=== PATIENT | female | born 1960 | race Caucasian/White ===

== ENCOUNTER 2020-06-25 09:21 | Emergency (ER) | payer MEDICARE, OTHER, SELFPAY ==
[2020-06-25 09:40] VITALS: BP 140/69; PULSE 68; RESP 16; TEMP 36.6; O2SAT 98; BMI 35.4
--- NOTE | 2020-06-25 09:57 | CT_ITS ---
EXAMINATION: CT ABDOMEN AND PELVIS WITHOUT CONTRAST CLINICAL INFORMATION: Lower back pain radiating to the leg. COMPARISON: 10/15/2018 TECHNIQUE: Multidetector volumetric imaging was performed from the superior aspect of the liver through the pubic symphysis. Sagittal and coronal reformatted images were obtained on the technologist's workstation. This CT examination was performed using dose optimization techniques as appropriate, variously including the following: *Automated exposure control *Adjustment of mA and/or kV according to patient size (this includes techniques or standardized protocols for targeted exams where dose is matched to indication/reason for exam; i.e. extremities or head) *Use of iterative reconstruction technique DLP: 744 mGy-cm FINDINGS: LUNG BASES: The visualized lung bases are unremarkable. LIVER, GALLBLADDER, AND BILIARY TREE: The liver is normal in size, shape, and attenuation. No focal hepatic lesion or biliary ductal dilatation is present. The gallbladder is unremarkable with no evidence of radiopaque gallstones, gallbladder wall thickening, or obvious pericholecystic inflammatory changes. PANCREAS: Unremarkable. SPLEEN: Unremarkable. ADRENAL GLANDS: Unremarkable. KIDNEYS AND URETERS: The kidneys are normal in size, shape, and attenuation. No hydronephrosis, hydroureter, or calculi seen. No perinephric stranding. 1.9 cm cyst at the lower pole of the left kidney. BLADDER: Unremarkable. GASTROINTESTINAL TRACT: The stomach is unremarkable. Normal caliber small bowel. There is no obstruction. No colonic wall thickening or inflammatory change. Normal appendix. Mild colonic stool burden. No free air. No free fluid. ABDOMINAL WALL: No significant hernia is appreciated. LYMPH NODES: Normal. VASCULAR: Normal caliber aorta with mild atherosclerotic calcification. PELVIC VISCERA: The uterus and adnexa are unremarkable. OSSEOUS STRUCTURES: There is no acute or suspicious osseous abnormality. Mild degenerative changes are noted in the spine with small endplate osteophytes present. The hips are well aligned. IMPRESSION: No acute finding of the abdomen or pelvis. No inflammatory changes. No hydronephrosis or nephrolithiasis.
[2020-06-25] MEDS: Lidocaine 4 % Patch ADH..PATCH 1 PATCH TRANSDERMA (10:26)
[2020-06-25] MEDS: Cyclobenzaprine HCl 10 MG TABLET PO (10:26)
[2020-06-25] MEDS: traMADoL HCL 50 MG TABLET PO (10:27)
[2020-06-25 10:54] LABS: Leukocyte Esterase Urine 1+ (NEG); PH 5.5 (5.0-8.0); Specific Gravity - Urine 1.015 (1.005-1.025); Urine Blood TRACE (NEG); Urine Ketones NEG (NEG)
[2020-06-25 11:10] LABS: Appearance Urine CLOUDY; Color Urine ORANGE
[2020-06-25 11:11] LABS: Bacteria Urine 4+ /LPF; RBC Urine 0-2 /HPF (0); Squamous Epithelial Cell Urine TRACE /LPF
--- NOTE | 2020-06-25 11:12 | ED.BACK ---
HPI - Back Pain/Injury General Chief Complaint: Back Pain/Injury Stated Complaint: BACK PAIN - NO KNOWN INJURY Time Seen by Provider: 06/25/20 09:48 Source: patient Mode of arrival: ambulatory Limitations: no limitations History of Present Illness HPI Narrative: Patient reporting lower back pain radiating to her left lower extremity with associated intermittent tingling denies numbness for the past few days worse today. Reports she was recently treated for UTI with Macrobid 2 weeks ago although is still taking azo due to still having some urinary symptoms. Denies: Trauma; FCS; Rash; H/A; CP; SOB; Neck Pain; Abd pain, N/V/D; UTI sx; Hematuria; Bowel/Bladder Incont; Focal weakness; Numbness; Radiation; Extr pain or swelling. Related Data Previous Rx's Medication Instructions Recorded cefdinir 300 mg PO BID 7 Days #14 cap 06/25/20 cyclobenzaprine 10 mg PO TID PRN #14 tab 06/25/20 hydrocodone-acetaminophen [Vicodin 1 tab PO Q8H PRN #14 tab 06/25/20 HP] lidocaine [Lidoderm] 1 patch TOPICAL DAILY #1 ea NS 06/25/20 Allergies Allergy/AdvReac Type Severity Reaction Status Date / Time IVP DYE Allergy Unknown rash Verified 06/25/20 10:16 Iodinated Contrast Media AdvReac Intermediate RASH Verified 06/25/20 10:16 [IV CONTRAST] contrast dye Allergy Unknown Unknown Uncoded 06/25/20 10:16 Review of Systems Review of Systems: Yes all other systems are reviewed and are negative PMFSH Past Medical History Attestation statement: The following information was validated with the patient. Medical History Diabetes Pulmonary embolism Social History Social History Alcohol intake: unknown Smoking Status: Never smoker Smoked in Last 30 Days: No Advance Directives: No Advance Directives Information Provided: No Physical Exam Vital Signs: Vital Signs: Vital Signs Temp Pulse Resp BP Pulse Ox 06/25/20 09:40 98 F 68 16 140/69 H 98 Body Mass Index 35.4 Const: General: cooperative, healthy appearing, comfortable, no acute distress, well developed, alert, awake and Physically active Nutritional Appearance: average body habitus and well nourished Orientation/consciousness: patient oriented x3 Limitations: no limitations HENMT: Head: Yes normal to inspection, Yes No palpable skull fracture present, Yes normocephalic and Yes atraumatic Ears: hearing grossly normal bilaterally General nose exam: Normal external nose present Face and sinus: Yes normal facial exam Mouth: moist mucous membranes Eyes: General: appearance normal, both eyes and all related structures Visual Wiley: normal visual wiley by confrontation Alignment and Position: alignment normal Periorbital: periorbital findings normal Eyelids: Yes eyelids normal Conjunctivae: conjunctivae normal Sclerae: sclerae normal Pupils: Equal, round and reactive pupils present EOM: EOMs intact bilaterally Neck: Neck: Yes normal visual inspection, Yes full ROM, Yes no lymphadenopathy, Yes no meningeal signs, Yes trachea midline and Yes supple Chest: Chest palpation & inspection: normal inspection of the chest Resp: Effort & Inspection: normal respiratory effort and able to speak in complete sentences Auscultation: clear to auscultation bilaterally, no crackles, no rales, no rhonchi and no wheezes Cardio: Rate: regular rate Rhythm: regular rhythm Heart sounds: S1 normal heart sound present and S2 normal heart sound present Peripheral pulses: Peripheral pulses 2+ throughout GI: Inspection: Yes normal to inspection Palpation (GI): Soft to palpation, nontender and No hepatosplenomegaly present Percussion: Yes normal to percussion Auscultation: normal bowel sounds : General: Yes no CVA tenderness Back/Spine/Pelvis: Back: no CVA tenderness Cervical Spine: normal cervical lordosis and cervical ROM normal Thoracic/Lumbar Spine: thoracic and lumbar spine normal to inspection, No Thoracic/lumbar spine scar(s), thoraco-lumbar ROM normal, straight leg raise negative bilaterally, pain with thoraco-lumbar ROM, paraspinal muscle tenderness, No thoraco-lumbar ROM limited, thoraco-lumbar spasm, No thoracic spinal tenderness, No lumbar spinal tenderness and other (No rashes/lesion/induration/fluctuance or signs infection noted.) Skin: General skin exam: no rashes or lesions noted, elasticity normal and turgor normal Trauma: no lacerations or abrasions Wounds: no wounds Hair: normal Nails: normal Neuro: General: patient oriented x3 and no meningeal signs Cranial nerves: Yes CN's II-XII intact bilaterally and Yes Equal, round and reactive pupils present Cognition (Neuro): normal cognition Gait exam (Neuro): Normal gait present Motor exam (neuro): 5/5 motor strength present throughout Extrem: General: Yes normal to inspection, Yes full ROM, Yes capillary refill normal, Yes no clubbing, cyanosis or edema, No no pedal edema, No no calf tenderness, Yes normal gait and No edema Right upper extremity: normal to inspection, full ROM and normal capillary refill; no edema Left upper extremity: normal to inspection, full ROM and normal capillary refill; no edema Right lower extremity: normal to inspection, full ROM and normal capillary refill; no edema Left lower extremity: normal to inspection, full ROM and normal capillary refill; no edema Psych: Appearance: grossly normal and well kempt Mental Status: mental status grossly normal Speech and movement: Normal speech and movement present and Clear speech present Affect: normal affect Attitude: cooperative Thought process: Normal thought process present Thought content: Normal thought content present Insight: Good insight present (Psych) Judgement: Good judgement present (Psych) Course Course Course Narrative: Pt c likely muscular pain, but could be herniated disc. Neuro exam shows no deficits. Not c/w AAA/epidural abscess/dissection. Not c/w Pyelo/UTI/kidney stone/spinal fx. Not cauda equina syndrome. No high risk Hx (Incont, fever, immunosupp, recent surgery/LP, coag, signif trauma, wt loss, puls mass, hx/o Ca, TB, or IVDU) to warrant MRI. DC c meds and f/u. MDM - Back Pain/Injury Lab Data Labs: Lab Results 06/25/20 Range/Units 10:31 Urine Color ORANGE Urine Appearance CLOUDY Urine pH 5.5 (5.0-8.0) Ur Specific [place] 1.015 (1.005-1.025) Urine Protein SEE NOTE (NEG-TRACE) MG/DL Urine Glucose (UA) SEE NOTE (NEG) MG/DL Urine Ketones NEG (NEG) MG/DL Urine Blood TRACE (NEG) Urine Nitrite SEE NOTE (NEG) Ur Leukocyte Esterase 1+ H (NEG) Urine RBC 0-2 (0) /HPF Urine WBC 10-14 H (0-4) /HPF Ur Squamous Epith Cells TRACE /LPF Urine Bacteria 4+ /LPF Discharge Plan Discharge Clinical Impression: UTI (urinary tract infection), Degenerative disc disease Patient Disposition: Home, Self-Care Instructions: Urinary Tract Infection in Older Adults (ED) Prescriptions: New cyclobenzaprine 10 mg tablet 10 mg PO TID PRN (Reason: pain) Qty: 14 RF: 0 hydrocodone-acetaminophen [Vicodin HP] 10-300 mg tablet 1 tab PO Q8H PRN (Reason: pain) Qty: 14 RF: 0 cefdinir 300 mg capsule 300 mg PO BID 7 Days Qty: 14 RF: 0 lidocaine [Lidoderm] 5 % adhesive patch,medicated 1 patch topical DAILY Qty: 1 RF: 0 Discharge Date/Time: 06/25/20 11:27
== END 2020-06-25 11:27 | disposition home or self-care (01) ==
PROVIDERS: Physician Assistant Medical; Emergency Provider Emergency Medicine; PCP Internal Medicine
DX: N39.0 Urinary tract infection, site not specified (principal); M51.36 Other intervertebral disc degeneration, lumbar region; E11.9 Type 2 diabetes mellitus without complications; Z86.711 Personal history of pulmonary embolism
CPT/HCPCS: 74176; 81001; 81003; 87086; 87088; 87186; 99284

== ENCOUNTER → 2020-09-24 11:32 | Outpatient (BNVA) | payer MEDICARE, OTHER, SELFPAY | PROVIDERS: PCP Internal Medicine; Visit Provider Internal Medicine Pulmonary Disease | DX: J43.9 Emphysema, unspecified (principal); R06.00 Dyspnea, unspecified; R05 Cough | CPT/HCPCS: Q3014 ==

== ENCOUNTER 2020-09-29 12:00 | Outpatient (REF) | payer MEDICARE, OTHER, SELFPAY ==
--- NOTE | 2020-09-29 12:05 | XR_ITS ---
EXAMINATION: XR CHEST CLINICAL INFORMATION: Cough COMPARISON: Previous chest x-ray most recent June [address] scans most recent December 2019 TECHNIQUE: 2 views of the chest were obtained. FINDINGS: There is scarring or subsegmental atelectasis at the lung bases, left greater than right. The lungs are otherwise clear. The cardiac and mediastinal contours are normal. There is no pleural effusion or pneumothorax. There are postsurgical changes to the cervical spine. XR/XR chest 2V IMPRESSION: Minimal linear scarring or subsegmental atelectasis at the lung bases, left greater than right.
== END 2020-09-29 12:01 | disposition home or self-care (01) ==
LOC: HO.HMGCX 12:00
PROVIDERS: PCP Internal Medicine; Visit Provider Nurse Practitioner Family
DX: R05 Cough (principal)
CPT/HCPCS: 71046

== ENCOUNTER 2020-09-29 15:31 | Outpatient (REF) | payer MEDICARE, OTHER, SELFPAY ==
[2020-09-29 17:34] LABS: Influenza A PCR NEGATIVE (Negative); Influenza B PCR NEGATIVE (Negative); Resp Syncy Virus RNA Qual PCR NEGATIVE (Negative); SARS COV2 PCR INHOUSE NEGATIVE (Negative)
== END 2020-09-29 15:32 | disposition home or self-care (01) ==
LOC: HO.LAB 15:31
PROVIDERS: Visit Provider Nurse Practitioner Family
DX: R05 Cough (principal); Z20.822 Contact with and (suspected) exposure to COVID-19
CPT/HCPCS: 0241U; 36415

== ENCOUNTER 2020-10-04 06:22 | Emergency (ER) | payer MEDICARE, OTHER, SELFPAY ==
[2020-10-04 07:31] VITALS: BP 136/80; PULSE 78; RESP 18; TEMP 37.3; O2SAT 96; BMI 36.6
--- NOTE | 2020-10-04 07:44 | ED.NAVMDI ---
HPI - Nausea/Vomiting/Diarrhea General Chief complaint: Headache Stated complaint: covid symptoms Time Seen by Provider: 10/04/20 07:32 Source: patient Mode of arrival: ambulatory Limitations: no limitations History of Present Illness HPI Narrative: Patient been coughing for last 2 weeks COVID -ve on 09/29 started on Z-Keith and doxycycline and prednisone comes here for nausea vomiting for last 24 hours her cough is getting better no fever now no significant abdominal pain just cramping no other family member is sick MD elicited complaint: nausea and vomiting Onset (ago): day(s) (1) Description of vomiting: food contents Description of diarrhea: watery Associated nausea: Yes Associated abdominal pain: Yes Location of pain: diffuse Pain consistency: colicky Severity: mild Quality: cramping Exacerbating factors: eating Relieving factors: none Related Data Previous Rx's Medication Instructions Recorded cefdinir 300 mg PO BID 7 Days #14 cap 06/25/20 cyclobenzaprine 10 mg PO TID PRN #14 tab 06/25/20 hydrocodone-acetaminophen [Vicodin 1 tab PO Q6H PRN #14 tab NS 06/25/20 HP] lidocaine [Lidoderm] 1 patch TOPICAL DAILY #1 ea NS 06/25/20 lidocaine [Lidoderm] 1 patch TOPICAL DAILY #1 ea NS 06/25/20 atorvastatin 40 mg tablet 40 mg PO DAILY #30 cap 07/17/20 fluoxetine 20 mg capsule 40 mg PO DAILY #60 cap 08/07/20 trazodone 100 mg tablet 100 mg PO BEDTIME #30 cap 08/07/20 metformin 500 mg tablet 500 mg PO BID #60 cap 09/01/20 azithromycin 250 mg tablet See Rx Instructions PO .COMPLEX 5 09/24/20 Days #6 tab doxycycline hyclate 100 mg capsule 100 mg PO BID 10 Days #20 cap 09/29/20 prednisone 20 mg tablet 20 mg PO DAILY 9 Days #18 tab 09/29/20 ondansetron 4 mg PO Q6-8H PRN #10 tab 10/04/20 Allergies Allergy/AdvReac Type Severity Reaction Status Date / Time IVP DYE Allergy Unknown rash Verified 09/24/20 11:33 Iodinated Contrast Media AdvReac Intermediate RASH Verified 09/24/20 11:33 [IV CONTRAST] Review of Systems Review of Systems: Constitutional : No Weight loss, No Fever, No Chills ENT/Mouth : No sore throat, No Rhinorrhea Eyes: No Eye Pain, No Swelling Cardiovascular : No Chest Pain, no palpitations Respiratory : No Cough, No Sputum, no shortness of breath Gastrointestinal : ++Nausea, +Vomiting, + Diarrhea, No abdominal Pain, no black stools Genitourinary : No Dysuria, No Urinary Frequency Musculoskeletal : No joint pain, No Myalgias, No Joint Swelling Skin : No Skin Lesions, No rash Neuro : No Weakness, No Numbness, No Dizziness, No Headache Psych : No Anxiety/Panic, No Depression Heme/Lymph: No Bruising, No Lymphadenopathy Endocrine : No Polyuria, No Polydipsia All other systems reviewed and are negative Gastrointestinal: Gastrointestinal: Reports nausea PMFSH Past Medical History Medical History Diabetes Pulmonary embolism Social History Social History Alcohol intake: never Smoking Status: Never smoker Use of substances other than those prescribed or required for medical reasons: No Advance Directives: No Advance Directives Information Provided: No Physical Exam Vital Signs: Vital Signs: Last Vital Signs Temp 99.1 F 10/04/20 07:31 Pulse 78 10/04/20 07:31 Resp 18 10/04/20 07:31 BP 136/80 10/04/20 07:31 Pulse Ox 96 10/04/20 07:31 Body Mass Index 36.6 Appearance: Alert. Oriented X3. No acute distress. Eyes: Pupils equal, round and reactive to light. ENT: Pharynx normal. Neck: Normal inspection. Neck supple. CVS: Normal heart rate and rhythm. Pulses normal. Respiratory: No respiratory distress. Breath sounds normal. Abdomen: Soft and nontender. Bowel sounds are present, no mass palpable, no CVA tenderness Skin: Skin warm and dry. Normal skin color. Normal skin turgor. Extremities: No lower extremity edema. Neuro: Oriented X 3. No motor deficit. No sensory deficit. Course Course Course Narrative: Patient feeling better likely side effect of doxycycline causing gastritis and vomiting patient advised to stop doxy for now already taken a course of Z-Keith will give prescription of Zofran MDM - Nausea/Vomiting/Diarrhea Lab Data Labs: Lab Results 10/04/20 Range/Units 07:56 Urine Color YELLOW Urine Appearance CLEAR Urine pH 5.5 (5.0-8.0) Ur Specific [place] 1.025 (1.005-1.025) Urine Protein NEG (NEG-TRACE) MG/DL Urine Glucose (UA) NEG (NEG) MG/DL Urine Ketones NEG (NEG) MG/DL Urine Blood NEG (NEG) Urine Nitrite NEG (NEG) Ur Leukocyte Esterase NEG (NEG) Discharge Plan Discharge Clinical Impression: Gastroenteritis Patient Disposition: Home, Self-Care Instructions: Acute Nausea and Vomiting (ED) Additional Instructions: Your symptoms likely from side effect of doxycycline hold doxycycline for now, take nausea medication as prescribed report to the ER/PCP if the vomiting continues Drink plenty of fluids Prescriptions: New ondansetron 4 mg tablet,disintegrating 4 mg PO Q6-8H PRN (Reason: nausea and vomiting) Qty: 10 RF: 0 No Action atorvastatin 40 mg tablet 40 mg PO DAILY Qty: 30 RF: 6 trazodone 100 mg tablet 100 mg PO BEDTIME Qty: 30 RF: 1 fluoxetine 20 mg capsule 40 mg PO DAILY Qty: 60 RF: 5 metformin 500 mg tablet 500 mg PO BID Qty: 60 RF: 5 cyclobenzaprine 10 mg tablet 10 mg PO TID PRN (Reason: pain) Qty: 14 RF: 0 cefdinir 300 mg capsule 300 mg PO BID 7 Days Qty: 14 RF: 0 lidocaine [Lidoderm] 5 % adhesive patch,medicated 1 patch topical DAILY Qty: 1 RF: 0 hydrocodone-acetaminophen [Vicodin HP] 10-300 mg tablet 1 tab PO Q6H PRN (Reason: pain) Qty: 14 RF: 0 lidocaine [Lidoderm] 5 % adhesive patch,medicated 1 patch topical DAILY Qty: 1 RF: 0 prednisone 20 mg tablet 20 mg PO DAILY 9 Days Qty: 18 RF: 0 doxycycline hyclate 100 mg capsule 100 mg PO BID 10 Days Qty: 20 RF: 0 azithromycin 250 mg tablet See Rx Instructions PO .COMPLEX 5 Days Qty: 6 RF: 0 Interventions: ED Discharge Assessment Last Done: 10/04/20 08:35 Discharge Date/Time: 10/04/20 08:36
[2020-10-04 08:13] LABS: Glucose Urine UA NEG (NEG); Leukocyte Esterase Urine NEG (NEG); Nitrite Urine NEG (NEG); PH 5.5 (5.0-8.0); Specific Gravity - Urine 1.025 (1.005-1.025); Urine Blood NEG (NEG); Urine Ketones NEG (NEG); Urine Protein NEG (NEG-TRACE)
[2020-10-04 08:16] LABS: Appearance Urine CLEAR; Color Urine YELLOW
== END 2020-10-04 08:36 | disposition home or self-care (01) ==
PROVIDERS: Emergency Provider Internal Medicine; PCP Internal Medicine
DX: K52.9 Noninfective gastroenteritis and colitis, unspecified (principal); R05 Cough; R11.10 Vomiting, unspecified; R25.2 Cramp and spasm; Z79.899 Other long term (current) drug therapy
CPT/HCPCS: 81003; 99283; 99284

== ENCOUNTER 2020-10-15 12:12 | Outpatient (REF) | payer MEDICARE, OTHER, SELFPAY ==
--- NOTE | ~2020-10-15 | MM_ITS ---
EXAMINATION: MM SCREENING DIGITAL BREAST TOMOSYNTHESIS, BILATERAL CLINICAL INFORMATION: Screening. Asymptomatic. Atypical ductal proliferation March 2014 The lifetime risk of breast cancer based on the Tyrer-Cuzick Model is 28.3%. COMPARISON: Mammography: October 14, 2019 and studies dating back to June 23, 2015 TECHNIQUE: Digital breast tomosynthesis is performed in both the craniocaudal and mediolateral oblique views along with computer-aided detection (CAD). Synthesized 2D images are generated from the tomosynthesis. FINDINGS: There are scattered areas of fibroglandular density (ACR BI-RADS breast composition Category b). There are no significant masses, abnormal calcifications, or other abnormalities. MM/MM tomosynthesis screening BI IMPRESSION: There are no significant changes from prior study. ASSESSMENT: BI-RADS 1: Negative RECOMMENDATION: Routine annual mammography screening. This patient's information was entered into a reminder system with a target due date for their next mammogram.
== END 2020-10-15 12:13 | disposition home or self-care (01) ==
LOC: HO.MAMMO 12:12
PROVIDERS: PCP Internal Medicine; Visit Provider Internal Medicine
DX: Z12.31 Encounter for screening mammogram for malignant neoplasm of breast (principal)
CPT/HCPCS: 77063; 77067

== ENCOUNTER 2020-10-22 17:29 | Emergency (ER) | payer MEDICARE, OTHER, SELFPAY ==
--- NOTE | ~2020-10-22 | CT_ITS ---
EXAM: CT scan of the head and cervical spine. INDICATION: Reason for Exam Fall off chair hit head TECHNIQUE: A noncontrast CT scan was performed from the skull base to the vertex. A noncontrast CT scan of the cervical spine was performed from the base of the skull through T1 at 2.5 mm and 1.25 mm collimation. Coronal and sagittal reformats were obtained at the acquisition workstation. Dose length product is 554 mGy-cm. COMPARISON: 11/16/2017 FINDINGS: Head: There is no evidence of acute intracranial hemorrhage or territorial infarction. Camara-white matter differentiation is preserved. No abnormal mass effect or midline shift. No extra-axial fluid collections. No abnormal attenuation is demonstrated within the brain parenchyma. Scattered periventricular and deep white matter hypodensities consistent with microangiopathy. The ventricles and sulcal spaces are proportional without hydrocephalus. Proportional prominence of the ventricles and sulcal spaces. No acute osseous or soft tissue abnormalities. The mastoid air cells and visualized portions of the paranasal sinuses are notable for complete opacification of the right maxillary sinus. Hyperostosis frontalis interna noted. Cervical Spine: Fusion changes anterior interbody at C4-C5 noted. Posterior fusion at this level as well. Fusion hardware appears intact. No evidence for any fracture or subluxation. The atlantooccipital and atlantoaxial articulations remain well aligned. Straightening of the normal cervical lordosis. Otherwise, there is anatomic alignment of the vertebral bodies and posterior elements. No evidence of acute fracture or subluxation. The vertebral body heights and disc spaces are maintained. There is no prevertebral soft tissue swelling. The thyroid gland and remaining cervical soft tissues are notable for nonspecific enlargement of the left lobe. The lung apices demonstrate no abnormalities. CT/CT cervical spine wo con IMPRESSION: No acute intracranial pathology. Postsurgical changes intact without evidence for any acute fracture or subluxation.
[2020-10-22 17:51] VITALS: BP 156/88; PULSE 82; RESP 18; TEMP 37.3; O2SAT 96; BMI 36.2
--- NOTE | 2020-10-22 18:06 | ED.FALL ---
HPI - Fall General Chief Complaint: Fall Stated Complaint: FAll Time Seen by Provider: 10/22/20 17:52 Mode of arrival: ambulatory History of Present Illness HPI Narrative: 60-year-old female with a past medical history of diabetes, spinal fusion, PEs on Xarelto presenting to the ED complaining of headache and nausea s/p mechanical fall backwards from standing on chair while reaching to put things on shelf. Reports fell backwards, hitting head, does not believe she had LOC. Reports back pain. Denies vomiting, visual change/loss, numbness/tingling, weakness, urinary incontinence/retention. Denies symptoms prior to fall MD complaint: fall Onset (ago): minute(s) Related Data Previous Rx's Medication Instructions Recorded cefdinir 300 mg PO BID 7 Days #14 cap 06/25/20 cyclobenzaprine 10 mg PO TID PRN #14 tab 06/25/20 hydrocodone-acetaminophen [Vicodin 1 tab PO Q6H PRN #14 tab NS 06/25/20 HP] lidocaine [Lidoderm] 1 patch TOPICAL DAILY #1 ea NS 06/25/20 lidocaine [Lidoderm] 1 patch TOPICAL DAILY #1 ea NS 06/25/20 atorvastatin 40 mg tablet 40 mg PO DAILY #30 cap 07/17/20 fluoxetine 20 mg capsule 40 mg PO DAILY #60 cap 08/07/20 metformin 500 mg tablet 500 mg PO BID #60 cap 09/01/20 azithromycin 250 mg tablet See Rx Instructions PO .COMPLEX 5 09/24/20 Days #6 tab doxycycline hyclate 100 mg capsule 100 mg PO BID 10 Days #20 cap 09/29/20 prednisone 20 mg tablet 20 mg PO DAILY 9 Days #18 tab 09/29/20 ondansetron 4 mg PO Q6-8H PRN #10 tab 10/04/20 trazodone 100 mg tablet 100 mg PO BEDTIME #30 cap 10/14/20 Allergies Allergy/AdvReac Type Severity Reaction Status Date / Time IVP DYE Allergy Unknown rash Verified 09/24/20 11:33 Iodinated Contrast Media AdvReac Intermediate RASH Verified 09/24/20 11:33 [IV CONTRAST] Review of Systems Review of Systems: Constitutional: No Fever, No Chills Eyes: No Eye Pain, No Vision Changes Cardiovascular: No Chest Pain, No SOB Respiratory: No Cough, No Dyspnea Gastrointestinal: + Nausea, No Vomiting, No Abdominal pain Genitourinary: No Dysuria, No Urinary Incontinence/retention Musculoskeletal: +back/neck pain, No Myalgias, No Joint Swelling Skin: No Skin Lesions, No rash Neuro: No Weakness, No Numbness, No Paresthesias, Unknown Loss of Consciousness, No Dizziness, + Headache Yes all other systems are reviewed and are negative Neurologic: Denies Abnormal speech present [facility] Past Medical History Attestation statement: The following information was validated with the patient. Medical History (Updated 10/22/20 @ 19:41 by ELIAS Jeong) Diabetes Pulmonary embolism Surgical History (Updated 10/22/20 @ 17:53 by Herber Soto) H/O spinal fusion Social History Social History Alcohol intake: never Smoking Status: Never smoker Advance Directives: No Advance Directives Information Provided: Yes Physical Exam Vital Signs: Vital Signs: Last Vital Signs Temp 98.4 F 10/22/20 18:18 Pulse 73 10/22/20 18:18 Resp 18 10/22/20 18:18 BP 163/82 H 10/22/20 18:18 Pulse Ox 93 10/22/20 18:18 Body Mass Index 36.2 Const: General: cooperative, healthy appearing, no acute distress, well developed, alert, awake and Physically active Orientation/consciousness: patient oriented x3 Limitations: no limitations HENMT: Head: Yes normal to inspection, Yes No palpable skull fracture present, Yes normocephalic and Yes atraumatic Ears: hearing grossly normal bilaterally General nose exam: Normal external nose present Face and sinus: Yes normal facial exam Eyes: General: appearance normal, both eyes and all related structures Pupils: Equal, round and reactive pupils present EOM: EOMs intact bilaterally Neck: Other: Old surgical scar noted to midline neck. No midline cervical spinous tenderness or step-offs. + bilateral paraspinal cervical tenderness Neck: Yes normal visual inspection and Yes no meningeal signs Resp: Effort & Inspection: normal respiratory effort Cardio: Rate: regular rate GI: Inspection: Yes normal to inspection Palpation (GI): Soft to palpation, nontender, no guarding and not rigid Back/Spine/Pelvis: Other: No midline thoracic/lumbar spinous tenderness Skin: Rashes: no rashes Wounds: no wounds Neuro: Other: No saddle anesthesia. General: patient oriented x3, gait normal, tone normal, moves all extremities, no meningeal signs, no focal motor deficits and CN's II-XI intact bilaterally Cranial nerves: Yes Equal, round and reactive pupils present Cognition (Neuro): normal cognition Speech: No Abnormal speech present Gait exam (Neuro): Normal gait present Motor exam (neuro): 5/5 motor strength present throughout and Pronator motor function not present Coordination: [id number] test normal and Romberg test negative Extrem: General: Yes normal to inspection Course Course Course Narrative: CT head/brain wo con IMPRESSION: No acute intracranial pathology. Postsurgical changes intact without evidence for any acute fracture or subluxation. >> results discussed with patient including worrisome signs and symptoms and strict return precautions. Patient verbalized understanding and feels safe for discharge home to follow-up with PCP MDM - Fall MDM Narrative Medical decision making narrative: 60-year-old female with a past medical history of diabetes, spinal fusion, PEs on Xarelto presenting to the ED complaining of headache and nausea s/p mechanical fall backwards from standing on chair while reaching to put things on shelf. On exam VS, NAD/well-appearing, physical exam as above. No red flag symptoms are midline spinous tenderness. Rule out ICH/fracture. Low concern for cauda equina/cord compression. Plan: Head CT/C-spine CT Discharge Plan Discharge Clinical Impression: Head injury Qualifiers: Encounter type: initial encounter Qualified Code(s): S09.90XA - Unspecified injury of head, initial encounter Patient Disposition: Home, Self-Care Instructions: Head Injury (ED) Additional Instructions: The CT scan of her head and neck did not show any acute findings Take Tylenol at home for pain Ice your head Follow-up with her primary care doctor If your symptoms persist or worsen, you have persistent or worsening nausea/vomiting, headache, visual changes, weakness return to the ED Follow-up with your Dr. Prescriptions: No Action atorvastatin 40 mg tablet 40 mg PO DAILY Qty: 30 RF: 6 fluoxetine 20 mg capsule 40 mg PO DAILY Qty: 60 RF: 5 metformin 500 mg tablet 500 mg PO BID Qty: 60 RF: 5 trazodone 100 mg tablet 100 mg PO BEDTIME Qty: 30 RF: 1 cyclobenzaprine 10 mg tablet 10 mg PO TID PRN (Reason: pain) Qty: 14 RF: 0 cefdinir 300 mg capsule 300 mg PO BID 7 Days Qty: 14 RF: 0 lidocaine [Lidoderm] 5 % adhesive patch,medicated 1 patch topical DAILY Qty: 1 RF: 0 hydrocodone-acetaminophen [Vicodin HP] 10-300 mg tablet 1 tab PO Q6H PRN (Reason: pain) Qty: 14 RF: 0 lidocaine [Lidoderm] 5 % adhesive patch,medicated 1 patch topical DAILY Qty: 1 RF: 0 ondansetron 4 mg tablet,disintegrating 4 mg PO Q6-8H PRN (Reason: nausea and vomiting) Qty: 10 RF: 0 prednisone 20 mg tablet 20 mg PO DAILY 9 Days Qty: 18 RF: 0 doxycycline hyclate 100 mg capsule 100 mg PO BID 10 Days Qty: 20 RF: 0 azithromycin 250 mg tablet See Rx Instructions PO .COMPLEX 5 Days Qty: 6 RF: 0 Referrals: Flakita Calero MD [Primary Care Provider] - 2 days
[2020-10-22 18:18] VITALS: BP 163/82; PULSE 73; RESP 18; TEMP 36.9; O2SAT 93
[2020-10-22] MEDS: Acetaminophen 325 MG TABLET 650 MG PO (18:24)
[2020-10-22] MEDS: Butalb/Acetamin/Caff 50/325/40 TABLET 1 TAB PO (20:01)
== END 2020-10-22 20:07 | disposition home or self-care (01) ==
PROVIDERS: Emergency Provider Emergency Medicine; PCP Internal Medicine
DX: S09.90XA Unspecified injury of head, initial encounter (principal); G44.309 Post-traumatic headache, unspecified, not intractable; M54.2 Cervicalgia; E11.9 Type 2 diabetes mellitus without complications; W07.XXXA Fall from chair, initial encounter; Y93.9 Activity, unspecified; Y92.9 Unspecified place or not applicable; Y99.9 Unspecified external cause status; Z86.711 Personal history of pulmonary embolism; Z79.01 Long term (current) use of anticoagulants; Z79.899 Other long term (current) drug therapy
CPT/HCPCS: 70450; 72125; 99283; 99284

== ENCOUNTER → 2020-11-13 09:53 | Outpatient (BNV) | payer MEDICARE, OTHER, SELFPAY | PROVIDERS: PCP Internal Medicine; Visit Provider Internal Medicine | DX: Z86.711 Personal history of pulmonary embolism (principal) | CPT/HCPCS: 99213; 99214; G2211 ==

== ENCOUNTER 2020-12-20 08:55 | Emergency (ER) | payer MEDICARE, OTHER, SELFPAY ==
--- NOTE | ~2020-12-20 | CT_ITS ---
EXAMINATION: CT THORACIC AND CT CERVICAL SPINE WITHOUT CONTRAST. CLINICAL INFORMATION: Neck pain radiating to right arm COMPARISON: None TECHNIQUE: Axial 3 mm thin and reformatted 2 mm thin sagittal and coronal images of cervical spine were obtained. Axial 2 mm thin and reformatted 2 mm thin sagittal and coronal images of thoracic spine were obtained. DLP 2002. FINDINGS: CERVICAL SPINE: There is mild straightening of cervical lordosis. The C4 and C5 fusion with intervening bone graft and ventral plate and screws for stabilization. Fused bony graft at the C5-C6 disc level as well. There are bilateral laminar screws at C3 and C4 with interconnecting rods. Rest of the disc heights, vertebral heights and alignment is preserved. There is mild cephalad spurring at the C1-C2 alignment. The craniovertebral junction is normal. No visible acute fracture, dislocation or subluxation seen. THORACIC SPINE: There is normal thoracic kyphosis. The vertebral heights, alignment and disc heights are normal. There is no visible acute fracture, dislocation or subluxation seen. No lytic or sclerotic process. There is no evidence of disc bulge, herniation or spinal stenosis. The paravertebral soft tissues are normal. Visualized lungs are well-expanded and clear. CT/CT thoracic spine wo con IMPRESSION: No acute fracture, dislocation or subluxation thoracic spine. Fusion C4-C5 and C5-C6 disc levels with integration of bone graft. There is ventral plate and screws at C4-C5 vertebra.
--- NOTE | ~2020-12-20 | CT_ITS ---
EXAMINATION: CT THORACIC AND CT CERVICAL SPINE WITHOUT CONTRAST. CLINICAL INFORMATION: Neck pain radiating to right arm COMPARISON: None TECHNIQUE: Axial 3 mm thin and reformatted 2 mm thin sagittal and coronal images of cervical spine were obtained. Axial 2 mm thin and reformatted 2 mm thin sagittal and coronal images of thoracic spine were obtained. DLP 2002. FINDINGS: CERVICAL SPINE: There is mild straightening of cervical lordosis. The C4 and C5 fusion with intervening bone graft and ventral plate and screws for stabilization. Fused bony graft at the C5-C6 disc level as well. There are bilateral laminar screws at C3 and C4 with interconnecting rods. Rest of the disc heights, vertebral heights and alignment is preserved. There is mild cephalad spurring at the C1-C2 alignment. The craniovertebral junction is normal. No visible acute fracture, dislocation or subluxation seen. THORACIC SPINE: There is normal thoracic kyphosis. The vertebral heights, alignment and disc heights are normal. There is no visible acute fracture, dislocation or subluxation seen. No lytic or sclerotic process. There is no evidence of disc bulge, herniation or spinal stenosis. The paravertebral soft tissues are normal. Visualized lungs are well-expanded and clear. CT/CT cervical spine wo con IMPRESSION: No acute fracture, dislocation or subluxation thoracic spine. Fusion C4-C5 and C5-C6 disc levels with integration of bone graft. There is ventral plate and screws at C4-C5 vertebra.
[2020-12-20 09:18] VITALS: BP 136/76; PULSE 76; RESP 16; TEMP 36; O2SAT 96; BMI 36.2
--- NOTE | 2020-12-20 10:20 | ED_ITS ---
HPI - Extremity Problem General Chief complaint: Extremity Injury, Upper Stated complaint: neck/shoulder pain no injury Time Seen by Provider: 12/20/20 09:49 Source: patient Mode of arrival: ambulatory Limitations: no limitations History of Present Illness HPI Narrative: 60 y/o female presenting with non-traumatic middle right back pain that she woke up with yesterday morning. She states the pain radiates from her right middle back up to her neck and arm. It is worse with deep breathing, movement and palpation. She states the pain was worse this morning so she came to the ER for evaluation. She has history of cervical spinal surgeries at [place] [id number] in the past and is concerned there is something going on in her neck. She denies injury or trauma. She has some tingling going down her right arm that comes and goes and is worse when she has the severe pain in her back. She denies numbness, weakness, fever, chills, headache. She took Motrin with no improvement in the pain. MD Complaint: extremity pain and other (back and neck pain) Onset (ago): day(s) (1) Pain Consistency: constant Location: right, upper extremity and other (back and neck) Severity scale (1-10): 10 Quality: aching and constant Radiation: distal Relieving factors: immobilization Exacerbating factors: range of motion and palpation Associated symptoms: arthralgias Related Data Home Medications Medication Instructions Recorded Confirmed albuterol sulfate 90 mcg/actuation 2 puff PO Q2H PRN 11/10/20 11/13/20 aerosol inhaler omeprazole 40 mg capsule,delayed 40 mg PO BID 11/10/20 11/13/20 release oxybutynin chloride 15 mg 15 mg PO DAILY 11/10/20 11/13/20 tablet,extended release 24 hr rivaroxaban 10 mg tablet 10 mg PO DAILY 11/10/20 11/13/20 Previous Rx's Medication Instructions Recorded atorvastatin 40 mg tablet 40 mg PO DAILY #30 cap 07/17/20 fluoxetine 20 mg capsule 40 mg PO DAILY #60 cap 08/07/20 metformin 500 mg tablet 500 mg PO BID #60 cap 09/01/20 trazodone 100 mg tablet 100 mg PO BEDTIME #30 cap 12/10/20 cyclobenzaprine 10 mg PO TID PRN #15 tab 12/20/20 hydrocodone-acetaminophen 1 tab PO Q6H PRN #6 tab 12/20/20 lidocaine [Lidoderm] 1 patch TOPICAL DAILY #15 ea 12/20/20 naproxen 500 mg PO BID PRN #20 tab 12/20/20 Allergies Allergy/AdvReac Type Severity Reaction Status Date / Time IVP DYE Allergy Unknown rash Verified 11/10/20 16:50 Iodinated Contrast Media AdvReac Intermediate RASH Verified 11/10/20 16:50 [IV CONTRAST] Review of Systems Review of Systems: Constitutional: No Fever, No Chills Cardiovascular: No Chest Pain, No SOB, No Orthopnea, No Edema Respiratory: No Cough, No Sputum, No Wheezing, No dyspnea Gastrointestinal: No Nausea, No Vomiting, No Diarrhea, No abdominal Pain Genitourinary: No Dysuria, No Urinary Frequency, No Hematuria Musculoskeletal: + joint pain, + Myalgias Skin: No Skin Lesions, No rash Neuro: No Weakness, No Numbness, No Dizziness, No Headache Psych: No Anxiety/Panic, No Depression Heme/Lymph: No Bruising, No Lymphadenopathy PMFSH Past Medical History Attestation statement: The following information was validated with the patient. Medical History COPD (chronic obstructive pulmonary disease) Diabetes mellitus with microalbuminuria, without long-term current use of insulin Dyslipidemia Essential hypertension History of pulmonary embolism History of thyroid cancer Surgical History H/O spinal fusion History of cervical spinal surgery History of colonoscopy History of partial thyroidectomy History of shoulder surgery History of surgery History of tubal ligation Family History Family History Father Alcoholism Mother HTN (hypertension) Hyperlipidemia CVD (cardiovascular disease) Sister Hyperlipidemia Alcoholism Brother No problems noted. Sister No problems noted. Sister No problems noted. Sister No problems noted. Daughter No problems noted. Daughter No problems noted. Social History Social History (Updated 11/13/20 @ 10:11 by Barbie Vazquez) Alcohol intake: current Alcohol intake frequency: does not drink Smoking Status: Former smoker Smoked in Last 30 Days: No Use of substances other than those prescribed or required for medical reasons: No Advance Directives: No Physical Exam Vital Signs: Vital Signs: Last Vital Signs Temp 96.8 F 12/20/20 09:18 Pulse 76 12/20/20 09:18 Resp 16 12/20/20 09:18 BP 136/76 12/20/20 09:18 Pulse Ox 96 12/20/20 09:18 Body Mass Index 36.2 Appearance: Alert. Oriented X3. No acute distress. Eyes: Pupils equal, round and reactive to light. ENT: Pharynx normal. Neck: Normal inspection. right sided tenderness to soft tissues with palpable spasm of SCM and upper trapezius CVS: Normal heart rate and rhythm. Pulses normal. Respiratory: No respiratory distress. Breath sounds normal. Back: right thoracic area with significant muscle spasm and tenderness, no spinal tenderness, limited ROM due to pain Skin: Skin warm and dry. Normal skin color. Normal skin turgor. No rashes. Extremities: No lower extremity edema. Right shoulder with Neuro: Oriented X 3. No motor deficit. No sensory deficit. Course Course Course Narrative: 60 y/o female with history of back pain, history of cervical fusions in the past who presents with non-traumatic right sided back pain that radiates into her right neck and arm for the last 2 days. Exam is consistent with significant soft tissue tenderness and muscle spasm. No neurological deficits. Doubt cervical radiculopathy or issue with previous hardware. Will treat for muscle spasm and reassess. Reevaluation(s) Reevaluation #1: Patient has continued back pain after treatment. Will give dose of IM dilaudid and proceed with CT scan of her spine to assess hardware. Reevaluation #2: Pain significantly improved with narcotic. CT scan shows no acute abnormality. She has a Pain management provider and plans to call her tomorrow for further assessment. Will treat for muscle spasm and strain and have her follow up. Patient agrees with plan. Stable for d/c. Critical Care Time Critical Care Time Critical Care Time: No Discharge Plan Discharge Clinical Impression: Muscle spasm of back Neck muscle strain Qualifiers: Encounter type: initial encounter Qualified Code(s): S16.1XXA - Strain of muscle, fascia and tendon at neck level, initial encounter Patient Disposition: Home, Self-Care Instructions: Muscle Spasm (ED), Back Pain (ED) Additional Instructions: Your CT scans today did not show any causes of your pain. Given your exam findings, it is most likely that your pain is due to muscle spasms in your middle back and radiating upward. No bending, lifting or twisting. Use ice several times per day for 20 minutes at a time for the next 48 hours and then change to heat. Take medications as prescribed to help with pain and discomfort. Follow up with your Primary Care Doctor this week. Follow up with your Pain Management provider. If your pain worsens, if you develop new numbness, tingling, weakness, loss of f unction or incontinence call 911 or come back to the ER right away for evaluation. Prescriptions: New cyclobenzaprine 10 mg tablet 10 mg PO TID PRN (Reason: muscle spasm) Qty: 15 RF: 0 lidocaine [Lidoderm] 5 % adhesive patch,medicated 1 patch topical DAILY Qty: 15 RF: 0 naproxen 500 mg tablet 500 mg PO BID PRN (Reason: pain) Qty: 20 RF: 0 hydrocodone-acetaminophen 5-325 mg tablet 1 tab PO Q6H PRN (Reason: pain) Qty: 6 RF: 0 No Action atorvastatin 40 mg tablet 40 mg PO DAILY Qty: 30 RF: 6 fluoxetine 20 mg capsule 40 mg PO DAILY Qty: 60 RF: 5 metformin 500 mg tablet 500 mg PO BID Qty: 60 RF: 5 trazodone 100 mg tablet 100 mg PO BEDTIME Qty: 30 RF: 1 oxybutynin chloride 15 mg tablet extended release 24hr 15 mg PO DAILY RF: 0 omeprazole 40 mg capsule,delayed release(DR/EC) 40 mg PO BID RF: 0 Xarelto 10 mg tablet 10 mg PO DAILY RF: 0 albuterol sulfate 90 mcg/actuation HFA aerosol inhaler 2 puff PO Q2H PRN (Reason: Wheezing) RF: 0
[2020-12-20] MEDS: Ketorolac Tromethamine 30 MG/ML VIAL IM (10:28)
[2020-12-20] MEDS: diazePAM 2 MG TABLET PO (10:30)
[2020-12-20] MEDS: HYDROcodone Bit/Acetam 5/325 TABLET 1 TAB PO (10:30)
[2020-12-20] MEDS: Lidocaine 4 % Patch ADH..PATCH 1 PATCH TRANSDERMA (10:30)
[2020-12-20] MEDS: HYDROmorphone HCl 0.5 MG/0.5 ML SYRINGE IM (12:33)
[2020-12-20 13:20] VITALS: BP 125/53; PULSE 62; RESP 16; TEMP 36.8
== END 2020-12-20 13:55 | disposition home or self-care (01) ==
PROVIDERS: Emergency Provider Emergency Medicine Emergency Medical Services; PCP Internal Medicine
DX: M62.830 Muscle spasm of back (principal); S16.1XXA Strain of muscle, fascia and tendon at neck level, initial encounter; X50.1XXA Overexertion from prolonged static or awkward postures, initial encounter; E11.9 Type 2 diabetes mellitus without complications; I10 Essential (primary) hypertension; E78.5 Hyperlipidemia, unspecified; Y93.84 Activity, sleeping; Y92.013 Bedroom of single-family (private) house as the place of occurrence of the external cause; Y99.9 Unspecified external cause status; Z86.711 Personal history of pulmonary embolism; Z85.850 Personal history of malignant neoplasm of thyroid; Z79.02 Long term (current) use of antithrombotics/antiplatelets; Z79.84 Long term (current) use of oral hypoglycemic drugs; Z79.899 Other long term (current) drug therapy
CPT/HCPCS: 72125; 72128; 96372; 99283; 99284; J1170; J1885

== ENCOUNTER 2021-02-12 10:09 | Outpatient (REF) | payer MEDICARE, OTHER, SELFPAY | END 2021-02-12 10:10 | disposition home or self-care (01) | LOC: HO.LAB 10:09 | PROVIDERS: Visit Provider Nurse Practitioner Family | DX: Z20.822 Contact with and (suspected) exposure to COVID-19 (principal); J01.90 Acute sinusitis, unspecified | CPT/HCPCS: U0003; U0005 ==

== ENCOUNTER → 2021-03-17 09:52 | Outpatient (BNVA) | payer MEDICARE, OTHER, SELFPAY | PROVIDERS: PCP Internal Medicine; Visit Provider Internal Medicine Pulmonary Disease | DX: R06.00 Dyspnea, unspecified (principal); J43.9 Emphysema, unspecified; J44.9 Chronic obstructive pulmonary disease, unspecified | CPT/HCPCS: 99212 ==

== ENCOUNTER → 2021-05-11 09:58 | Outpatient (BNVA) | payer MEDICARE, OTHER, SELFPAY | PROVIDERS: PCP Internal Medicine; Visit Provider Internal Medicine Pulmonary Disease | DX: J44.9 Chronic obstructive pulmonary disease, unspecified (principal); R06.00 Dyspnea, unspecified; E11.9 Type 2 diabetes mellitus without complications; I10 Essential (primary) hypertension; E78.5 Hyperlipidemia, unspecified; Z87.891 Personal history of nicotine dependence; Z91.041 Radiographic dye allergy status | CPT/HCPCS: 99212 ==

== ENCOUNTER 2021-05-18 12:56 | Outpatient (REF) | payer MEDICARE, OTHER, SELFPAY ==
--- NOTE | ~2021-05-18 | XR_ITS ---
EXAMINATION: XR FOOT, LEFT CLINICAL INFORMATION: Left foot pain. COMPARISON: Left foot radiographs dated 08/03/2019. TECHNIQUE: AP, lateral, and oblique views of the left foot. FINDINGS: No acute fracture or dislocation. Joint space narrowing with small marginal osteophytes at the 1st metatarsophalangeal joint. No osseous erosion. Plantar and dorsal calcaneal enthesophytes. XR/XR foot LT min 3V IMPRESSION: No acute fracture or dislocation. 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 Plantar and dorsal calcaneal spurs.
== END 2021-05-18 12:57 | disposition home or self-care (01) ==
LOC: HO.HMGCX 12:56
PROVIDERS: PCP Internal Medicine; Visit Provider Internal Medicine
DX: Z13.89 Encounter for screening for other disorder (principal)
CPT/HCPCS: 73630

== ENCOUNTER 2021-06-01 07:19 | Outpatient (REF) | payer MEDICARE, OTHER, SELFPAY ==
[2021-06-01 11:36] LABS: MANUAL DIFF FLAG NO
[2021-06-01 11:50] LABS: Basophils Percent Auto 0.4 % (0-2); Eosinophils Absolute Auto 0.1 X10*3/uL (0.0-0.4); Hematocrit 38.9 % (37-47); Hemoglobin 12.4 g/dl (12.0-16.0); Imm Gran Abs Auto 0.02 X10*3/uL (0.00-0.03); Imm Gran Pct Auto 0.4 % (0.0-0.4); Lymphocytes Absolute Auto 1.9 X10*3/uL (1.2-4.9); Lymphocytes Percent Auto 37.4 % (20-40); Mean Corpuscular HGB Conc 31.9 g/dl (31.0-35.0); Mean Corpuscular Hemoglobin 28.6 pg (27.0-33.0); Mean Corpuscular Volume 89.6 fL (80-98); Mean Platelet Volume 10.7 fL (9.4-12.3); Monocytes Absolute Auto 0.3 X10*3/uL (0.1-1.2); Monocytes Percent Auto 6.8 % (2-11); Neutrophils Absolute Auto 2.6 X10*3/uL (2.0-8.3); Platelet Count 254 X10*3/uL (160-400); Red Blood Count 4.34 X10*6/uL (4.20-5.50); Red Cell Distribution Width 14.3 % (11.0-16.0)
[2021-06-01 12:16] LABS: Alanine Aminotransferase 25 U/L (0-31); Alkaline Phosphatase 82 U/L (39-117); Anion Gap 12 (12-20); Aspartate Amino Transferase 17 U/L (5-31); Bilirubin Total 0.8 mg/dL (0.0-1.0); Blood Urea Nitrogen 19 mg/dL (9-16); Calcium 9.1 mg/dL (8.4-10.2); Carbon Dioxide 24 mmol/L (22-29); Chloride 108 mmol/L (96-108); Cholesterol 146 mg/dL; Estimated Glomerular Filt Rate > 60; Glucose Fasting 130 mg/dL (60-99); HDL Cholesterol 36 mg/dL; LDL Cholesterol Calculated 78 mg/dl; Potassium 4.1 mmol/L (3.3-5.1); Sodium 140 mmol/L (135-145); Total Protein 6.7 g/dL (6.5-8.0); Triglycerides 162 mg/dL
[2021-06-01 12:22] LABS: TSH reflex Free T4 2.87 uIU/mL (0.32-4.0); Vitamin D 25-OH Total 27.2 ng/mL (>30)
[2021-06-01 12:35] LABS: Estimated Average Glucose 131 mg/dL; Hemoglobin A1c % 6.2 %
[2021-06-01 12:42] LABS: Creatinine Urine 78.82 mg/dL; Folate 6.6 ng/mL (> or = 4.0); Microalbumin Urine < 5.0 mg/L; Vitamin B12 181 pg/mL (200-900)
== END 2021-06-01 07:20 | disposition home or self-care (01) ==
LOC: HO.HMGCLDS 07:19
PROVIDERS: PCP Internal Medicine; Visit Provider Internal Medicine
DX: E11.29 Type 2 diabetes mellitus with other diabetic kidney complication (principal); E78.5 Hyperlipidemia, unspecified; I10 Essential (primary) hypertension; R80.9 Proteinuria, unspecified; Z85.850 Personal history of malignant neoplasm of thyroid
CPT/HCPCS: 36415; 80053; 80061; 82043; 82306; 82607; 82746; 83036; 84443; 85025

== ENCOUNTER 2021-06-27 09:13 | Emergency (ER) | payer MEDICARE, OTHER, SELFPAY ==
[2021-06-27 09:22] VITALS: BP 161/97; PULSE 99; RESP 18; TEMP 36.6; O2SAT 98; BMI 36.3
--- NOTE | 2021-06-27 09:35 | ED_ITS ---
HPI - Fall General Chief Complaint: Fall Stated Complaint: fall Time Seen by Provider: 06/27/21 09:34 Source: patient Mode of arrival: ambulatory Limitations: no limitations Related Data Home Medications Medication Instructions Recorded Confirmed oxybutynin chloride 15 mg 15 mg PO DAILY 11/10/20 06/14/21 tablet,extended release 24 hr metformin 500 mg tablet 500 mg PO ONCE cap 06/07/21 06/14/21 Previous Rx's Medication Instructions Recorded fluoxetine 20 mg capsule 40 mg PO DAILY #60 cap 01/11/21 atorvastatin 40 mg tablet 40 mg PO DAILY #30 cap 02/09/21 clotrimazole-betamethasone 1 1 appl TOPICAL BID 28 Days #45 g 02/12/21 %-0.05 % topical cream cholecalciferol (vitamin D3) 1,250 1,250 mcg PO QWEEK 90 Days #13 cap 06/01/21 mcg (50,000 unit) capsule cyanocobalamin (vitamin B-12) See Rx Instructions IM QWEEK #10 ea 06/01/21 1,000 mcg/mL injection kit trazodone 100 mg tablet 100 mg PO BEDTIME #30 cap 06/14/21 Allergies Allergy/AdvReac Type Severity Reaction Status Date / Time IVP DYE Allergy Unknown rash Verified 06/14/21 18:24 Iodinated Contrast Media AdvReac Intermediate RASH Verified 06/14/21 18:24 [IV CONTRAST] [facility] Past Medical History Attestation statement: The following information was validated with the patient. Medical History Arthritis of first metatarsophalangeal (MTP) joint of left foot Calcaneal spur of left foot COPD (chronic obstructive pulmonary disease) Deviated nasal septum Diabetes mellitus with microalbuminuria, without long-term current use of insulin Dyslipidemia Essential hypertension History of pulmonary embolism History of thyroid cancer Vitamin B12 deficiency Vitamin D deficiency Surgical History H/O spinal fusion History of cervical spinal surgery History of colonoscopy History of partial thyroidectomy History of shoulder surgery History of surgery History of tubal ligation Family History Family History Father Alcoholism Mother HTN (hypertension) Hyperlipidemia CVD (cardiovascular disease) Sister Hyperlipidemia Alcoholism Substance use disorder Brother No problems noted. Sister No problems noted. Sister No problems noted. Sister No problems noted. Daughter No problems noted. Daughter No problems noted. Social History Social History Housing: Apartment Alcohol intake: current Alcohol intake frequency: does not drink Patient Tobacco Use Status: Former Tobacco user Years Smoked: 4 yrs e-Cigarette/Vaping Use: Never Used Second Hand Smoke Exposure: No Advance Directives: Yes Advance Directives Information Provided: Yes Advance Directives on File: No Patient : No service: No Current occupational status: disabled Physical Exam Vital Signs: Vital Signs: Last Vital Signs Temp 98 F 06/27/21 09:22 Pulse 99 06/27/21 09:22 Resp 18 06/27/21 09:22 BP 161/97 H 06/27/21 09:22 Pulse Ox 98 06/27/21 09:22 Body Mass Index 36.3 Discharge Plan Discharge Prescriptions: No Action fluoxetine 20 mg capsule 40 mg PO DAILY Qty: 60 RF: 5 atorvastatin 40 mg tablet 40 mg PO DAILY Qty: 30 RF: 6 cyanocobalamin (vitamin B-12) 1,000 mcg/mL kit See Rx Instructions IM QWEEK Qty: 10 RF: 1 cholecalciferol (vitamin D3) 1,250 mcg (50,000 unit) capsule 1,250 mcg PO QWEEK 90 Days Qty: 13 RF: 0 trazodone 100 mg tablet 100 mg PO BEDTIME Qty: 30 RF: 1 oxybutynin chloride 15 mg tablet extended release 24hr 15 mg PO DAILY RF: 0 clotrimazole-betamethasone 1-0.05 % cream 1 appl topical BID 28 Days Qty: 45 RF: 0 metformin 500 mg tablet 500 mg PO ONCE RF: 0
--- NOTE | 2021-06-27 09:51 | ED.BACK ---
HPI - Back Pain/Injury General Chief Complaint: Fall Stated Complaint: fall Time Seen by Provider: 06/27/21 09:34 Source: patient Mode of arrival: ambulatory Limitations: no limitations History of Present Illness HPI Narrative: 61-year-old female on Xarelto states that yesterday she was ambulating slipped on emesis. She was at [place] and landed on her knees. She denies hitting her head she denies loss of consciousness. She was not evaluated yesterday but when she woke up this morning she had knee and back pain. She has chronic back pain she denies injuring her back or falling on the back denies chest pain shortness breath Related Data Home Medications Medication Instructions Recorded Confirmed oxybutynin chloride 15 mg 15 mg PO DAILY 11/10/20 06/14/21 tablet,extended release 24 hr metformin 500 mg tablet 500 mg PO ONCE cap 06/07/21 06/14/21 Previous Rx's Medication Instructions Recorded fluoxetine 20 mg capsule 40 mg PO DAILY #60 cap 01/11/21 atorvastatin 40 mg tablet 40 mg PO DAILY #30 cap 02/09/21 clotrimazole-betamethasone 1 1 appl TOPICAL BID 28 Days #45 g 02/12/21 %-0.05 % topical cream cholecalciferol (vitamin D3) 1,250 1,250 mcg PO QWEEK 90 Days #13 cap 06/01/21 mcg (50,000 unit) capsule cyanocobalamin (vitamin B-12) See Rx Instructions IM QWEEK #10 ea 06/01/21 1,000 mcg/mL injection kit trazodone 100 mg tablet 100 mg PO BEDTIME #30 cap 06/14/21 acetaminophen 325 mg tablet 325 mg PO QID PRN #90 tab 06/27/21 (Tylenol) cyclobenzaprine 5 mg tablet 5 mg PO BEDTIME PRN #20 tab 06/27/21 famotidine 20 mg tablet (Pepcid) 20 mg PO BID PRN #60 tab 06/27/21 lidocaine 5 % topical patch 1 patch TOPICAL DAILY #30 ea 06/27/21 prednisone 20 mg tablet 60 mg PO DAILY 5 Days #15 tab 06/27/21 Allergies Allergy/AdvReac Type Severity Reaction Status Date / Time IVP DYE Allergy Unknown rash Verified 06/14/21 18:24 Iodinated Contrast Media AdvReac Intermediate RASH Verified 06/14/21 18:24 [IV CONTRAST] Review of Systems Review of Systems: Review of systems: General: Patient denies any fever chills recent illness Musculoskeletal: back pain or body aches or other injuries HEENT: denies headache, runny nose, ear pain Respiratory: denies shortness of breath, cough Cardiovascular: no chest pain or palpitations : denies dysuria, frequency Abdomen: no nausea vomiting denies abdominal pain Extremities: no swelling, knee pain Skin: no diaphoresis Yes all other systems are reviewed and are negative [facility] Past Medical History Medical History Arthritis of first metatarsophalangeal (MTP) joint of left foot Calcaneal spur of left foot COPD (chronic obstructive pulmonary disease) Deviated nasal septum Diabetes mellitus with microalbuminuria, without long-term current use of insulin Dyslipidemia Essential hypertension History of pulmonary embolism History of thyroid cancer Vitamin B12 deficiency Vitamin D deficiency Surgical History H/O spinal fusion History of cervical spinal surgery History of colonoscopy History of partial thyroidectomy History of shoulder surgery History of surgery History of tubal ligation Family History Family History Father Alcoholism Mother HTN (hypertension) Hyperlipidemia CVD (cardiovascular disease) Sister Hyperlipidemia Alcoholism Substance use disorder Brother No problems noted. Sister No problems noted. Sister No problems noted. Sister No problems noted. Daughter No problems noted. Daughter No problems noted. Social History Social History Housing: Apartment Alcohol intake: current Alcohol intake frequency: does not drink Patient Tobacco Use Status: Former Tobacco user Years Smoked: 4 yrs e-Cigarette/Vaping Use: Never Used Second Hand Smoke Exposure: No Advance Directives: Yes Advance Directives Information Provided: Yes Advance Directives on File: No Patient : No service: No Current occupational status: disabled Physical Exam Vital Signs: Vital Signs: Last Vital Signs Temp 98 F 06/27/21 09:22 Pulse 99 06/27/21 09:22 Resp 18 06/27/21 09:22 BP 161/97 H 06/27/21 09:22 Pulse Ox 98 06/27/21 09:22 Body Mass Index 36.3 General: Well-appearing well-nourished in no signs of distress HEENT: Normocephalic atraumatic Neck: No signs of JVD, no masses no tenderness or lymphadenopathy Cardiovascular: Regular rate and rhythm Respiratory: Clear to auscultation bilaterally Abdomen: Soft nontender no masses Extremities: Normal pedal pulses no signs of edema I did do testing of all ligaments in the knee both are normal patient has no regions of the knee. No swelling it is mildly tender to palpation. Skin: Dry warm no rashes Back: No tenderness full ROM negative straight leg test and normal reflexes bilateral lower extremities and upper extremities normal strength MDM - Back Pain/Injury MDM Narrative Medical decision making narrative: Fall with contusions to knees and back pain likely strain versus chronic degenerative disc disease versus lumbar radiculopathy. I do not think the patient needs any emergent imaging and she is able ambulate has no back pain red flags at this time. I will send home with lidocaine patches Tylenol prednisone and Pepcid. 1049 patient was discharged after discharge patient is adamant that she had to have muscle relaxant refer cyclobenzaprine she tells me that does not work for her offered her to give her another medication which time she was tearful and stated that she could have taken Tylenol at home. I explained that for her to take prednisone would be the best medication for her back. It would help with inflammation she then stated she has a bulging just wants an x-ray. I told her we are happy to get her an x-ray but it would not provide the information she wanted about her buldging disc. An MRI would be the test that all look at the discs we will not see those on x-ray. I explained that with her back pain with no red flags she has got full strength is moving her extremities has not lost control of her bowel or bladder that would not be warranted I did offer to get the x-rayback pain but she refused. She refused the prednisone tylenol and flexeril or other medications. I explained my concerns with even cyclobenzaprine as well as other pain medications would not be safe for her. I will sent home I offered again to send her home with different medications patient refused. She was tearful and continued to state I will go home. I asked how I could help her be happy about her visit but she stated again she just wanted to go home. Discharge Plan Discharge Clinical Impression: Fall, Back pain, Contusion of left knee, initial encounter, Contusion of right knee, initial encounter Patient Disposition: Home, Self-Care Instructions: Contusion in Adults (ED), Back Pain (ED), Fall Prevention (ED) Additional Instructions: Please ice use tylenol for pain. If you have any other concerns please return to the ED. Prescriptions: New acetaminophen [Tylenol] 325 mg tablet 325 mg PO QID PRN (Reason: pain) Qty: 90 RF: 0 prednisone 20 mg tablet 60 mg PO DAILY 5 Days Qty: 15 RF: 0 famotidine [Pepcid] 20 mg tablet 20 mg PO BID PRN (Reason: epigastric pain) Qty: 60 RF: 0 lidocaine 5 % adhesive patch,medicated 1 patch topical DAILY Qty: 30 RF: 0 cyclobenzaprine 5 mg tablet 5 mg PO BEDTIME PRN (Reason: muscle spasm) Qty: 20 RF: 0 No Action fluoxetine 20 mg capsule 40 mg PO DAILY Qty: 60 RF: 5 atorvastatin 40 mg tablet 40 mg PO DAILY Qty: 30 RF: 6 cyanocobalamin (vitamin B-12) 1,000 mcg/mL kit See Rx Instructions IM QWEEK Qty: 10 RF: 1 cholecalciferol (vitamin D3) 1,250 mcg (50,000 unit) capsule 1,250 mcg PO QWEEK 90 Days Qty: 13 RF: 0 trazodone 100 mg tablet 100 mg PO BEDTIME Qty: 30 RF: 1 oxybutynin chloride 15 mg tablet extended release 24hr 15 mg PO DAILY RF: 0 clotrimazole-betamethasone 1-0.05 % cream 1 appl topical BID 28 Days Qty: 45 RF: 0 metformin 500 mg tablet 500 mg PO ONCE RF: 0
== END 2021-06-27 10:56 | disposition home or self-care (01) ==
PROVIDERS: Emergency Provider Student in an Organized Health Care Education/Training Program; PCP Internal Medicine
DX: S80.02XA Contusion of left knee, initial encounter (principal); S80.01XA Contusion of right knee, initial encounter; M54.9 Dorsalgia, unspecified; I10 Essential (primary) hypertension; E11.9 Type 2 diabetes mellitus without complications; J44.9 Chronic obstructive pulmonary disease, unspecified; W01.0XXA Fall on same level from slipping, tripping and stumbling without subsequent striking against object, initial encounter; Y93.9 Activity, unspecified; Y92.513 Shop (commercial) as the place of occurrence of the external cause; Y99.9 Unspecified external cause status; Z86.711 Personal history of pulmonary embolism; Z79.01 Long term (current) use of anticoagulants
CPT/HCPCS: 99283

== ENCOUNTER → 2021-08-11 09:45 | Outpatient (BNVA) | payer MEDICARE, OTHER, SELFPAY | PROVIDERS: PCP Internal Medicine; Visit Provider Internal Medicine Pulmonary Disease | DX: R05.9 Cough, unspecified (principal); R06.00 Dyspnea, unspecified | CPT/HCPCS: 99212 ==

== ENCOUNTER 2021-09-05 06:54 | Emergency (ER) | payer MEDICARE, OTHER, SELFPAY ==
--- NOTE | ~2021-09-05 | US_ITS ---
EXAMINATION: US VENOUS ULTRASOUND WITH DOPPLER LOWER EXTREMITY, LEFT CLINICAL INFORMATION: Pain and swelling left lower extremity. COMPARISON: None TECHNIQUE: Ultrasound of the deep veins is performed from the hip to the calf with compression sonography and color and pulse Doppler assessment. Spectral analysis with color-flow imaging is performed. FINDINGS: There is normal venous compression and respiratory variation and augmented flow. The visualized common femoral vein, superficial femoral vein, profunda femoral vein, popliteal vein, and the trifurcation region shows no evidence of deep venous thrombosis. There is no significant popliteal fossa cyst. The right common femoral vein demonstrates normal grayscale, color and spectral Doppler visualization. If the patient's symptoms persist, followup ultrasound in 5 days 7 days might be of value to exclude proximal propagation from a non-visualized calf vein. US/US venous duplex LE IMPRESSION: No deep venous thrombosis demonstrated in the left lower extremity.
[2021-09-05 07:10] VITALS: BP 155/84; PULSE 101; RESP 16; TEMP 36.7; O2SAT 95
--- NOTE | 2021-09-05 08:18 | ED.EXTPRO ---
HPI - Extremity Problem General Chief complaint: Extremity Problem Stated complaint: l leg pain/ prev blood clot Time Seen by Provider: 09/05/21 07:13 Source: patient Mode of arrival: ambulatory Limitations: no limitations History of Present Illness Complaint: extremity pain Onset (ago): day(s) (2) Pain Consistency: constant Location: left and lower extremity Quality: aching Radiation: none Relieving factors: nothing Exacerbating factors: range of motion and palpation Associated symptoms: denies other symptoms Context: other (hx of DVT in that leg unsure of precipitating event - has been off blood thinners since December) Related Data Home Medications Medication Instructions Recorded Confirmed oxybutynin chloride 15 mg 15 mg PO DAILY 11/10/20 06/14/21 tablet,extended release 24 hr metformin 500 mg tablet 500 mg PO ONCE cap 06/07/21 06/14/21 piroxicam 20 mg capsule 20 mg PO DAILY 08/11/21 Previous Rx's Medication Instructions Recorded atorvastatin 40 mg tablet 40 mg PO DAILY #30 cap 02/09/21 clotrimazole-betamethasone 1 1 appl TOPICAL BID 28 Days #45 g 02/12/21 %-0.05 % topical cream cholecalciferol (vitamin D3) 1,250 1,250 mcg PO QWEEK 90 Days #13 cap 06/01/21 mcg (50,000 unit) capsule cyanocobalamin (vitamin B-12) See Rx Instructions IM QWEEK #10 ea 06/01/21 1,000 mcg/mL injection kit cyclobenzaprine 5 mg tablet 5 mg PO BEDTIME PRN #20 tab 06/27/21 famotidine 20 mg tablet (Pepcid) 20 mg PO BID PRN #60 tab 06/27/21 fluoxetine 20 mg capsule 40 mg PO DAILY #60 cap 07/14/21 albuterol sulfate 90 mcg/actuation 2 puff INHALATION Q6H PRN 30 Days 08/11/21 aerosol inhaler #1 ea azithromycin 250 mg tablet See Rx Instructions PO .COMPLEX 5 08/11/21 Days #6 tab trazodone 100 mg tablet 100 mg PO BEDTIME #30 cap 08/13/21 Allergies Allergy/AdvReac Type Severity Reaction Status Date / Time IVP DYE Allergy Unknown rash Verified 08/11/21 09:49 Iodinated Contrast Media AdvReac Intermediate RASH Verified 08/11/21 09:49 [IV CONTRAST] Review of Systems Review of Systems: Constitutional : No Fever, No Chills ENT/Mouth : No Ear Pain, No Hoarseness, No sore throat Eyes: No Eye Pain, No Swelling, No Redness, No Foreign Body Cardiovascular : No Chest Pain, No SOB Respiratory : No Cough, No Dyspnea Gastrointestinal : No Nausea, No Vomiting, No Diarrhea, No abdominal Pain Genitourinary : No Dysuria, No Hematuria Musculoskeletal : no joint pain, pos Myalgias, No Joint Swelling Skin : No Skin lacerations, No rash Neuro : No Weakness, No Numbness, No Loss of Consciousness, No Dizziness, No Headache Psych : No Anxiety/Panic, No Depression Heme/Lymph: no easy bruising, no Lymphadenopathy Endocrine : No Polyuria, No Polydipsia All other systems reviewed and are negative [facility] Past Medical History Attestation statement: The following information was validated with the patient. Medical History Arthritis of first metatarsophalangeal (MTP) joint of left foot Calcaneal spur of left foot Deviated nasal septum Diabetes mellitus with microalbuminuria, without long-term current use of insulin Dyslipidemia Essential hypertension History of pulmonary embolism History of thyroid cancer Vitamin B12 deficiency Vitamin D deficiency Surgical History H/O spinal fusion History of cervical spinal surgery History of colonoscopy History of partial thyroidectomy History of shoulder surgery History of surgery History of tubal ligation Family History Family History Father Alcoholism Mother HTN (hypertension) Hyperlipidemia CVD (cardiovascular disease) Sister Hyperlipidemia Alcoholism Substance use disorder Brother No problems noted. Sister No problems noted. Sister No problems noted. Sister No problems noted. Daughter No problems noted. Daughter No problems noted. Social History Social History Housing: Apartment Alcohol intake: unknown Patient Tobacco Use Status: Former Tobacco user Years Smoked: 4 yrs e-Cigarette/Vaping Use: Never Used Second Hand Smoke Exposure: No Advance Directives: Yes Advance Directives Information Provided: Yes Advance Directives on File: No Patient : No service: No Current occupational status: disabled Physical Exam Vital Signs: Vital Signs: Last Vital Signs Temp 98.2 F 09/05/21 09:19 Pulse 89 09/05/21 09:19 Resp 16 09/05/21 09:19 BP 158/89 H 09/05/21 09:19 Pulse Ox 95 09/05/21 09:19 BMI result Body Mass Index 35.6 Appearance: Alert. Oriented X3. No acute distress. Eyes: Pupils equal, round and reactive to light. ENT: Pharynx normal. Neck: Normal inspection. Neck supple. CVS: Normal heart rate and rhythm. Pulses normal. Respiratory: No respiratory distress. Breath sounds normal. Abdomen: Soft and nontender. Skin: Skin warm and dry. Normal skin color. Normal skin turgor. Extremities: No lower extremity edema. L calf normal color - distal NV intact, reports ttp along the calf no ropy cord felt no erythema/warmth Neuro: Oriented X 3. No motor deficit. No sensory deficit. Course Course Course Narrative: negative DVT studay MDM - Extremity (Nontraumatic) MDM Narrative Medical decision making narrative: 61 yo female hx of HTN, HLD, PE no longer on AC therapy comes in with 2 days of isolated atraumatic L calf pain distal NV intact no signs of infection - at this time US to r/o DVT otherwise no infection, normal pules, no other myalgias. Dispo per results and findings. Has no CP/SOB. Discharge Plan Discharge Clinical Impression: Pain of left calf Patient Disposition: Home, Self-Care Instructions: Leg Pain (ED) Additional Instructions: return to ED for any worsening symptoms or concerns initial DVT study negative can repeat if this persists in 5 days Prescriptions: No Action atorvastatin 40 mg tablet 40 mg PO DAILY Qty: 30 RF: 6 cyanocobalamin (vitamin B-12) 1,000 mcg/mL kit See Rx Instructions IM QWEEK Qty: 10 RF: 1 cholecalciferol (vitamin D3) 1,250 mcg (50,000 unit) capsule 1,250 mcg PO QWEEK 90 Days Qty: 13 RF: 0 fluoxetine 20 mg capsule 40 mg PO DAILY Qty: 60 RF: 5 trazodone 100 mg tablet 100 mg PO BEDTIME Qty: 30 RF: 1 famotidine [Pepcid] 20 mg tablet 20 mg PO BID PRN (Reason: epigastric pain) Qty: 60 RF: 0 cyclobenzaprine 5 mg tablet 5 mg PO BEDTIME PRN (Reason: muscle spasm) Qty: 20 RF: 0 oxybutynin chloride 15 mg tablet extended release 24hr 15 mg PO DAILY RF: 0 clotrimazole-betamethasone 1-0.05 % cream 1 appl topical BID 28 Days Qty: 45 RF: 0 metformin 500 mg tablet 500 mg PO ONCE RF: 0 azithromycin 250 mg tablet See Rx Instructions PO .COMPLEX 5 Days Qty: 6 RF: 0 albuterol sulfate 90 mcg/actuation HFA aerosol inhaler 2 puff inhalation Q6H PRN (Reason: shortness of breath or wheezing) 30 Days Qty: 1 RF: 3
[2021-09-05 08:22] VITALS: BP 154/80; PULSE 101; RESP 18; TEMP 36.7; O2SAT 95; BMI 35.6
[2021-09-05 09:19] VITALS: BP 158/89; PULSE 89; RESP 16; TEMP 36.8; O2SAT 95
== END 2021-09-05 10:09 | disposition home or self-care (01) ==
PROVIDERS: Emergency Provider Emergency Medicine; PCP Internal Medicine
DX: M79.605 Pain in left leg (principal); I10 Essential (primary) hypertension; E78.5 Hyperlipidemia, unspecified; Z86.718 Personal history of other venous thrombosis and embolism; Z79.02 Long term (current) use of antithrombotics/antiplatelets; Z79.899 Other long term (current) drug therapy
CPT/HCPCS: 93971; 99283; 99284

== ENCOUNTER 2021-09-07 13:39 | Outpatient (REF) | payer MEDICARE, OTHER, SELFPAY ==
--- NOTE | ~2021-09-07 | XR_ITS ---
EXAMINATION: XR CHEST CLINICAL INFORMATION: Indeterminate viral infection. COMPARISON: Chest radiograph dated from 09/29/2020. TECHNIQUE: 2 views of the chest were obtained. FINDINGS: Normal appearance of the cardiomediastinal silhouette. Mild subsegmental atelectasis without focal airspace opacities, pleural effusions or pneumothorax. No acute osseous abnormalities. Visualized upper abdomen is within normal limits. XR/XR chest 2V IMPRESSION: No focal consolidation, pleural effusions or pneumothorax. Of note, radiographic examinations have decreased sensitivity for detection of groundglass opacities.
[2021-09-07 17:28] LABS: Influenza A PCR NEGATIVE (Negative); Influenza B PCR NEGATIVE (Negative); Resp Syncy Virus RNA Qual PCR NEGATIVE (Negative); SARS COV2 PCR INHOUSE POSITIVE (Negative)
== END 2021-09-07 13:40 | disposition home or self-care (01) ==
LOC: HO.HMGCX 13:39
PROVIDERS: PCP Internal Medicine; Visit Provider Physician Assistant Medical
DX: Z20.822 Contact with and (suspected) exposure to COVID-19 (principal); B34.9 Viral infection, unspecified
CPT/HCPCS: 0241U; 71046

== ENCOUNTER → 2021-09-14 08:50 | Outpatient (BNVA) | payer MEDICARE, OTHER, SELFPAY | PROVIDERS: PCP Internal Medicine; Visit Provider Internal Medicine Pulmonary Disease | DX: R05.3 Chronic cough (principal); K21.9 Gastro-esophageal reflux disease without esophagitis | CPT/HCPCS: 99212 ==

== ENCOUNTER → 2021-10-11 10:19 | Outpatient (BNVA) | payer MEDICARE, OTHER, SELFPAY | PROVIDERS: PCP Internal Medicine; Visit Provider Internal Medicine Pulmonary Disease | DX: R05.3 Chronic cough (principal); J43.9 Emphysema, unspecified; K21.9 Gastro-esophageal reflux disease without esophagitis; Z87.891 Personal history of nicotine dependence | CPT/HCPCS: Q3014 ==

== ENCOUNTER 2021-10-14 11:33 | Outpatient (REF) | payer MEDICARE, OTHER, SELFPAY ==
--- NOTE | ~2021-10-14 | XR_ITS ---
EXAMINATION: XR SHOULDER, LEFT CLINICAL INFORMATION: Other enthesopathy, not elsewhere classified. COMPARISON: Right shoulder done on 05/20/2010. TECHNIQUE: Three views of the left shoulder. FINDINGS: The bony alignments are intact. The cortices are intact. Curvilinear subtle calcifications are seen projecting along the superolateral aspect of the humeral head likely represent calcific tendinopathy and/or bursitis or combination thereof. Mild osteoarthrosis is also noted at the glenohumeral joint. A few subtle radiolucencies are noted within the proximal humerus, may represent changes secondary to focal osteoporosis versus nonspecific bone marrow pathology including myeloma. XR/XR shoulder LT min 2V IMPRESSION: 1. Subtle curvilinear calcifications are noted projecting over the superolateral aspect of the left femoral head likely represent calcific tendinopathy and/or bursitis or combination thereof. 2. Mild osteoarthrosis of the left glenohumeral joint. 3. Subtle focal radiolucencies are noted within the proximal left humerus, nonspecific in appearance, not optimally characterized. Clinical and lab correlation and follow-up imaging as appropriate may be considered for further clarification.
== END 2021-10-14 11:34 | disposition home or self-care (01) ==
LOC: HO.HMGCX 11:33
PROVIDERS: PCP Internal Medicine; Visit Provider Internal Medicine
DX: M77.8 Other enthesopathies, not elsewhere classified (principal)
CPT/HCPCS: 73030

== ENCOUNTER 2021-10-20 12:17 | Outpatient (REF) | payer MEDICARE, OTHER, SELFPAY ==
--- NOTE | ~2021-10-20 | MM_ITS ---
EXAMINATION: MM SCREENING DIGITAL BREAST TOMOSYNTHESIS, BILATERAL CLINICAL INFORMATION: Screening. Asymptomatic. The lifetime risk of breast cancer based on the Tyrer-Cuzick Model is 5%. COMPARISON: Mammography: 10/15/2020, 10/14/2019, 07/31/2018 TECHNIQUE: Digital breast tomosynthesis is performed in both the craniocaudal and mediolateral oblique views along with computer-aided detection (CAD). Synthesized 2D images are generated from the tomosynthesis. Additional right MLO view is provided. FINDINGS: There are scattered areas of fibroglandular density (ACR BI-RADS breast composition Category b). There are no significant masses, abnormal calcifications, or other abnormalities. Breast tissue composition borders on predominantly fatty replaced. Background stromal and fibroglandular densities are similar to prior exams. No significant changes. MM/MM tomosynthesis screening BI IMPRESSION: No mammographic evidence of malignancy. ASSESSMENT: BI-RADS 1: Negative RECOMMENDATION: Routine annual mammography screening. This patient's information was entered into a reminder system with a target due date for their next mammogram.
== END 2021-10-20 12:18 | disposition home or self-care (01) ==
LOC: HO.MAMMO 12:17
PROVIDERS: Visit Provider Internal Medicine
DX: Z12.31 Encounter for screening mammogram for malignant neoplasm of breast (principal)
CPT/HCPCS: 77063; 77067

== ENCOUNTER → 2021-10-25 08:47 | Outpatient (BNVA) | payer MEDICARE, OTHER, SELFPAY | PROVIDERS: PCP Internal Medicine; Visit Provider Orthopaedic Surgery | DX: M77.8 Other enthesopathies, not elsewhere classified (principal) | CPT/HCPCS: 20610; 99202; J1100 ==

== ENCOUNTER 2021-11-04 17:16 | Outpatient (REF) | payer MEDICARE, OTHER, SELFPAY ==
[2021-11-04 17:42] LABS: Appearance Urine CLOUDY; Color Urine YELLOW; Glucose Urine UA NEG (NEG); Leukocyte Esterase Urine 1+ (NEG); Nitrite Urine NEG (NEG); PH 5.5 (5.0-8.0); UACC Culture Trigger YES; Urine Blood TRACE (NEG); Urine Ketones NEG (NEG); Urine Protein NEG (NEG-TRACE)
[2021-11-04 17:49] LABS: WBC Urine 50-75 /HPF (0-4)
[2021-11-04 17:50] LABS: Bacteria Urine 4+ /LPF; Squamous Epithelial Cell Urine 2+ /LPF
[2021-11-04 17:57] LABS: Alanine Aminotransferase 19 U/L (0-31); Aspartate Amino Transferase 18 U/L (5-31); Cholesterol 151 mg/dL; HDL Cholesterol 32 mg/dL; LDL Cholesterol Calculated 83 mg/dl; Triglycerides 183 mg/dL
[2021-11-04 18:02] LABS: Estimated Average Glucose 128 mg/dL; Hemoglobin A1c % 6.1 %
[2021-11-04 18:17] LABS: TSH reflex Free T4 2.22 uIU/mL (0.32-4.0); Vitamin D 25-OH Total 37.4 ng/mL (>30)
[2021-11-04 18:31] LABS: Folate 8.1 ng/mL (> or = 4.0); Vitamin B12 301 pg/mL (200-900)
== END 2021-11-04 17:17 | disposition home or self-care (01) ==
LOC: HO.LAB 17:16
PROVIDERS: PCP Internal Medicine; Visit Provider Internal Medicine
DX: E11.29 Type 2 diabetes mellitus with other diabetic kidney complication (principal); E53.8 Deficiency of other specified B group vitamins; E55.9 Vitamin D deficiency, unspecified; E78.5 Hyperlipidemia, unspecified; I10 Essential (primary) hypertension; R80.9 Proteinuria, unspecified; Z78.0 Asymptomatic menopausal state; Z85.850 Personal history of malignant neoplasm of thyroid
CPT/HCPCS: 36415; 80061; 81001; 82306; 82607; 82746; 83036; 84443; 84450; 84460; 87086; 87088; 87186

== ENCOUNTER 2021-11-07 08:49 | Emergency (ER) | payer MEDICARE, OTHER, SELFPAY ==
--- NOTE | ~2021-11-07 | NM_ITS ---
EXAMINATION: NM LUNG IMAGE PERFUSION CLINICAL INFORMATION: Left lower rib pain and history of PE. COMPARISON: None TECHNIQUE: Following intravenous administration of 4 mCi of technetium 99m MAA, imaging of lungs were obtained in multiple projections. FINDINGS: There is normal perfusion seen to both lungs without any segmental or subsegmental defect. Ventilation study was not performed. NM/NM pul perfusion IMPRESSION: Normal perfusion scan.
--- NOTE | ~2021-11-07 | CT_ITS ---
EXAMINATION: CT ABDOMEN AND PELVIS WITHOUT CONTRAST CLINICAL INFORMATION: Left sided flank pain COMPARISON: 06/25/2020 TECHNIQUE: Multidetector volumetric imaging was performed from the superior aspect of the liver through the pubic symphysis. Sagittal and coronal reformatted images were obtained on the technologist's workstation. This CT examination was performed using dose optimization techniques as appropriate, variously including the following: *Automated exposure control *Adjustment of mA and/or kV according to patient size (this includes techniques or standardized protocols for targeted exams where dose is matched to indication/reason for exam; i.e. extremities or head) *Use of iterative reconstruction technique DLP: 817 mGy-cm FINDINGS: LUNG BASES: Subsegmental atelectasis present within the middle lobe and lingula. LIVER, GALLBLADDER, AND BILIARY TREE: The liver is normal in size, shape, and attenuation. No focal hepatic lesion or biliary ductal dilatation is present. Gallbladder unremarkable. PANCREAS: Unremarkable. SPLEEN: Unremarkable. ADRENAL GLANDS: Unremarkable. KIDNEYS AND URETERS: Kidneys normal in size and morphology. There is a 2.0 cm simple cyst in the lower pole of left kidney, stable and benign requiring no further follow-up. Mild fullness of the bilateral renal collecting systems likely related to aggressive hydration. Duplex left renal collecting system. The ureters appear to join in the region of the mid to distal segment at the level of the sacral promontory. There is a 2 mm calcification, presumptive phlebolith anterior to the left ureter BLADDER: Unremarkable. GASTROINTESTINAL TRACT: The small and large bowel are unremarkable. The appendix is unremarkable. ABDOMINAL WALL: No significant hernia is appreciated. LYMPH NODES: Normal. VASCULAR: Aorta is atherosclerotic but normal caliber. PELVIC VISCERA: Uterus and ovaries unremarkable. OSSEOUS STRUCTURES: No acute or suspicious osseous abnormalities. CT/CT abdomen pelvis wo con IMPRESSION: No acute findings within the abdomen or pelvis to explain the patient's symptomatology. Duplex left renal collecting system and proximal ureters.
[2021-11-07 09:06] VITALS: BP 162/95; PULSE 104; RESP 20; TEMP 36.4; O2SAT 97; BMI 35.8
--- NOTE | 2021-11-07 09:24 | ED.ABDPAIN ---
HPI - Abdominal Pain General Chief Complaint: Abdominal Pain Stated Complaint: flank pain Time Seen by Provider: 11/07/21 09:21 Source: patient Mode of arrival: ambulatory Limitations: no limitations History of Present Illness HPI narrative: 61 y/o female HTN, HLD, hx PE, COPD, hx recurrent UTI's presents to the ER with worsening left-sided flank pain for the last 4 days. Culture primary care doctor 3 days ago and was sent for urinalysis. Her urine test showed infection and she was started on nitrofurantoin twice a day. She has been compliant with antibiotic. She reports no improvement, she has been having worsening left-sided flank pain. She denies any urinary symptoms including dysuria, frequency, urgency, or hematuria. She started [id number] azo and her urine became darker in color. She reports nausea with a couple episodes of vomiting yesterday morning. No fevers but admits to chills. She also reports constipation has not had a bowel movement in a week. MD elicited complaint: flank pain Pertinent past history: past UTI Onset (ago): day(s) (4) Pain Consistency: constant Location: L flank Severity: severe Pain scale (0-10): 9 Quality: stabbing Radiation: none Migration to: no migration Exacerbating factors: movement Relieving factors: nothing Associated symptoms: nausea, vomiting and constipation Related Data Previous Rx's Medication Instructions Recorded clotrimazole-betamethasone 1 1 appl TOPICAL BID 28 Days #45 g 02/12/21 %-0.05 % topical cream fluoxetine 20 mg capsule 40 mg PO DAILY #60 cap 07/14/21 metformin 500 mg tablet 500 mg PO ONCE #90 cap 09/09/21 atorvastatin 40 mg tablet 40 mg PO DAILY #30 cap 09/14/21 omeprazole 40 mg capsule,delayed 40 mg PO BID 30 Days #60 cap 09/14/21 release trazodone 100 mg tablet 100 mg PO BEDTIME #30 cap 10/13/21 nitrofurantoin macrocrystal 100 mg 100 mg PO Q12H 10 Days #20 cap 11/05/21 capsule cyclobenzaprine 10 mg tablet 10 mg PO TID PRN #10 tab 11/07/21 hydrocodone 5 mg-acetaminophen 325 1 tab PO Q8H PRN #7 tab 11/07/21 mg tablet ibuprofen 600 mg tablet 600 mg PO Q8H PRN #14 tab 11/07/21 Allergies Allergy/AdvReac Type Severity Reaction Status Date / Time IVP DYE Allergy Unknown rash Verified 10/14/21 13:53 Iodinated Contrast Media AdvReac Intermediate RASH Verified 10/14/21 13:53 [IV CONTRAST] Review of Systems Review of Systems Constitutional: No Fever, + Chills ENT/Mouth: No sore throat, No Rhinorrhea, No Swallowing Difficulty Cardiovascular: No Chest Pain, No SOB, No Orthopnea, No Edema Respiratory: No Cough, No Sputum, No Wheezing, No dyspnea Gastrointestinal: + Nausea, + Vomiting, No Diarrhea, No abdominal Pain, +Flank pain, +constipation, No Hematochezia, No Melena Genitourinary: No Dysuria, No Urinary Frequency, No Hematuria Musculoskeletal: No joint pain, No Myalgias Skin: No Skin Lesions, No rash Neuro: No Weakness, No Numbness, No Dizziness, No Headache Psych: + Anxiety/Panic, No Depression Heme/Lymph: No Bruising, No Lymphadenopathy Endocrine: No Polyuria, No Polydipsia PMFSH Past Medical History Medical History (Reviewed 10/25/21 @ 08:54 by Alexandra Mackenzie [facility]) Arthritis of first metatarsophalangeal (MTP) joint of left foot Calcaneal spur of left foot Deviated nasal septum Diabetes mellitus with microalbuminuria, without long-term current use of insulin Dyslipidemia Essential hypertension History of pulmonary embolism History of thyroid cancer Left shoulder tendinitis Vitamin B12 deficiency Vitamin D deficiency Surgical History (Reviewed 10/25/21 @ 08:54 by Alexandra Mackenzie [facility]) H/O spinal fusion History of cervical spinal surgery History of colonoscopy History of partial thyroidectomy History of shoulder surgery History of surgery History of tubal ligation Family History Family History (Reviewed 10/25/21 @ 08:54 by Alexandra Mackenzie [facility]) Father Alcoholism Mother HTN (hypertension) Hyperlipidemia CVD (cardiovascular disease) Sister Hyperlipidemia Alcoholism Substance use disorder Brother No problems noted. Sister No problems noted. Sister No problems noted. Sister No problems noted. Daughter No problems noted. Daughter No problems noted. Social History Social History (Reviewed 10/25/21 @ 08:54 by Alexandra Mackenzie [facility]) Housing: Apartment Alcohol intake: unknown Patient Tobacco Use Status: Former Tobacco user Years Smoked: 4 yrs e-Cigarette/Vaping Use: Never Used Second Hand Smoke Exposure: No Use of substances other than those prescribed or required for medical reasons: No Advance Directives: No Advance Directives Information Provided: No service: No Current occupational status: disabled Physical Exam ED Vital Signs: Vital Signs - 24 hr 11/07/21 09:06 11/07/21 11:05 11/07/21 14:28 Temperature 97.6 F 97.7 F Pulse Rate 104 H 89 74 Respiratory Rate 20 16 16 Blood Pressure 162/95 H 178/96 H 150/79 H Pulse Oximetry 97 98 96 BMI result Body Mass Index 35.8 Appearance: Alert. Oriented X3. Pacing in the room in discomfort. Eyes: Pupils equal, round and reactive to light. ENT: Pharynx normal. Neck: Normal inspection. Neck supple. CVS: Normal heart rate and rhythm. Pulses normal. Respiratory: No respiratory distress. Breath sounds normal. Abdomen: Obese, Soft and nontender. +BS x4. Positive left-sided flank tenderness with CVA tenderness. Skin: Skin warm and dry. Normal skin color. Normal skin turgor. No rashes. Extremities: No lower extremity edema. Neuro: Oriented X 3. No motor deficit. No sensory deficit. Grossly normal, nonfocal Course Course Course Narrative: 61-year-old female with a history of HTN, HLD, DM, COPD, hx PE, recurrent UTIs who is on current antibiotics for a UTI presents to the ER with worsening left-sided flank pain for the last 4 days. She has also had nausea and vomiting. Concern for possible pyelonephritis versus possible kidney stone. Her urine is orange in color. She denies any UTI symptoms at this time, and states whenever she gets a UTI she does not have the typical symptoms. On arrival she is hemodynamically stable and afebrile. Will check basic lab workup, urinalysis, lactic and cultures. Reevaluation(s) Reevaluation #1: Urinalysis is now negative, it was positive a few days ago and she has been on Macrobid. CT scan of the abdomen and pelvis did not show any acute abnormalities. Normal-appearing kidney. Patient still in significant pain. She is holding her left flank and back. It is worse with movement, palpation and deep breaths. She reports a history of idiopathic bilateral pulmonary emboli in 2012 and was taken off of anticoagulation 1 year ago. She reports when she had her PE she was very short of breath and had dyspnea. She has none of that right now. There is concern that PEs could be causing pleuritic pain in this area. She is allergic to IV contrast dye. Will get a V/Q scan to rule out PE. Reevaluation #2: V/Q scan is normal. This is reassuring. Unclear etiology of her severe left-sided flank pain however with threatening causes have been ruled out today. Will treat for musculoskeletal pain with muscle relaxers, short course of narcotic pain medication and have her follow-up with her primary care doctor. She was encouraged to continue her previously prescribed antibiotic as it has improved her urinalysis. Stable for discharge home. Patient agrees with plan. MDM - Abdominal Pain Medical Records Attestation: I reviewed the patient's medical records. Lab Data Attestation: I reviewed the patient's lab results. Result diagrams: 11/07/21 09:40 11/07/21 09:40 Labs: Lab Results 11/07/21 11/07/21 11/07/21 Range/Units 09:40 09:40 09:40 WBC 11.7 H (4.8-10.8) X10*3/uL RBC 4.87 (4.20-5.50) X10*6/uL Hgb 14.2 (12.0-16.0) g/dl Hct 43.2 (37.0-47.0) % MCV 88.7 (80.0-98.0) fL MCH 29.2 (27.0-33.0) pg MCHC 32.9 (31.0-35.0) g/dl RDW 13.6 (11.0-16.0) % Plt Count 356 (160-400) X10*3/uL MPV 10.2 (9.4-12.3) fL Immature Gran % (Auto) 0.4 (0.0-0.4) % Neut % (Auto) 70.7 (45-73) % Lymph % (Auto) 22.6 (20-40) % [place] % (Auto) 5.3 (2-11) % Eos % (Auto) 0.7 (0-4) % Baso % (Auto) 0.3 (0-2) % Lymph # (Auto) 2.7 (1.2-4.9) X10*3/uL [place] # (Auto) 0.6 (0.1-1.2) X10*3/uL Eos # (Auto) 0.1 (0.0-0.4) X10*3/uL Baso # (Auto) 0.0 (0.0-0.2) X10*3/uL Abs Immat Gran (auto) 0.05 H (0.00-0.03) X10*3/uL Absolute Neuts (auto) 8.3 (2.0-8.3) x10*3/uL Absolute Nucleated RBC 0.000 (0.0-0.012) X10*3/uL Nucleated RBC % (auto) 0.0 (0.0-0.2) /100WBC Sodium 137 (135-145) mmol/L Potassium 4.1 (3.3-5.1) mmol/L Chloride 103 (96-108) mmol/L Carbon Dioxide 22 (22-29) mmol/L Anion Gap 16 (12-20) BUN 12 (9-16) mg/dL Creatinine 0.91 (0.5-1.4) mg/dL Estim Creat Clear Calc 68.1 Estimated GFR > 60 Random Glucose 144 H (60-115) mg/dL Lactic Acid (0.5-2.0) mmol/L Calcium 9.9 D (8.4-10.2) mg/dL Magnesium 2.1 (1.6-2.6) mg/dL Total Bilirubin 0.9 (0.0-1.0) mg/dL Direct Bilirubin 0.3 (0.0-0.5) mg/dL AST 23 (5-31) U/L ALT 23 (0-31) U/L Alkaline Phosphatase 89 (39-117) U/L Total Protein 8.3 H D (6.5-8.0) g/dL Albumin 4.6 (3.5-5.0) g/dL Urine Color YELLOW Urine Appearance CLEAR Urine pH 5.5 (5.0-8.0) Ur Specific [place] 1.020 (1.005-1.025) Urine Protein NEG (NEG-TRACE) MG/DL Urine Glucose (UA) NEG (NEG) MG/DL Urine Ketones NEG (NEG) MG/DL Urine Blood NEG (NEG) Urine Nitrite NEG (NEG) Ur Leukocyte Esterase NEG (NEG) COVID-19 ([facility]) (Negative) COVID-19 Clin Com 11/07/21 11/07/21 Range/Units 09:40 09:48 WBC (4.8-10.8) X10*3/uL RBC (4.20-5.50) X10*6/uL Hgb (12.0-16.0) g/dl Hct (37.0-47.0) % MCV (80.0-98.0) fL MCH (27.0-33.0) pg MCHC (31.0-35.0) g/dl RDW (11.0-16.0) % Plt Count (160-400) X10*3/uL MPV (9.4-12.3) fL Immature Gran % (Auto) (0.0-0.4) % Neut % (Auto) (45-73) % Lymph % (Auto) (20-40) % [place] % (Auto) (2-11) % Eos % (Auto) (0-4) % Baso % (Auto) (0-2) % Lymph # (Auto) (1.2-4.9) X10*3/uL [place] # (Auto) (0.1-1.2) X10*3/uL Eos # (Auto) (0.0-0.4) X10*3/uL Baso # (Auto) (0.0-0.2) X10*3/uL Abs Immat Gran (auto) (0.00-0.03) X10*3/uL Absolute Neuts (auto) (2.0-8.3) x10*3/uL Absolute Nucleated RBC (0.0-0.012) X10*3/uL Nucleated RBC % (auto) (0.0-0.2) /100WBC Sodium (135-145) mmol/L Potassium (3.3-5.1) mmol/L Chloride (96-108) mmol/L Carbon Dioxide (22-29) mmol/L Anion Gap (12-20) BUN (9-16) mg/dL Creatinine (0.5-1.4) mg/dL Estim Creat Clear Calc Estimated GFR Random Glucose (60-115) mg/dL Lactic Acid 1.5 (0.5-2.0) mmol/L Calcium (8.4-10.2) mg/dL Magnesium (1.6-2.6) mg/dL Total Bilirubin (0.0-1.0) mg/dL Direct Bilirubin (0.0-0.5) mg/dL AST (5-31) U/L ALT (0-31) U/L Alkaline Phosphatase (39-117) U/L Total Protein (6.5-8.0) g/dL Albumin (3.5-5.0) g/dL Urine Color Urine Appearance Urine pH (5.0-8.0) Ur Specific [place] (1.005-1.025) Urine Protein (NEG-TRACE) MG/DL Urine Glucose (UA) (NEG) MG/DL Urine Ketones (NEG) MG/DL Urine Blood (NEG) Urine Nitrite (NEG) Ur Leukocyte Esterase (NEG) COVID-19 ([facility]) Negative (Negative) COVID-19 Clin Com See Note Discharge Plan Discharge Clinical Impression: Acute left-sided thoracic back pain Patient Disposition: Home, Self-Care Instructions: Back Pain (ED) Additional Instructions: Your CT scan did not show any abnormalities. Your lung scan did not show any evidence of a blood clot. Your urine test did not show any active infection, although your urine test from the other day did show signs of infection. Recommend continuing the previously prescribed antibiotics. Your pain is most likely muscular in nature. Recommend taking the prescribed muscle relaxers, pain medications and anti-inflammatories as needed for pain. No bending, lifting or twisting. Use ice several times per day for 20 minutes at a time for the next 48 hours and then change to heat. Take medications as prescribed to help with pain and discomfort. Follow up with your Primary Care Doctor this week. If you develop new or worsening symptoms call 911 or come back to the ER for further evaluation. Prescriptions: New hydrocodone-acetaminophen 5-325 mg tablet 1 tab PO Q8H PRN (Reason: severe pain (scale score 7-10)) Qty: 7 0RF cyclobenzaprine 10 mg tablet 10 mg PO TID PRN (Reason: muscle spasm) Qty: 10 0RF ibuprofen 600 mg tablet 600 mg PO Q8H PRN (Reason: pain) Qty: 14 0RF No Action fluoxetine 20 mg capsule 40 mg PO DAILY Qty: 60 5RF metformin 500 mg tablet 500 mg PO ONCE Qty: 90 3RF atorvastatin 40 mg tablet 40 mg PO DAILY Qty: 30 6RF trazodone 100 mg tablet 100 mg PO BEDTIME Qty: 30 1RF nitrofurantoin macrocrystal 100 mg capsule 100 mg PO Q12H 10 Days Qty: 20 0RF Rx Instructions: must administer with a meal/food clotrimazole-betamethasone 1-0.05 % cream 1 appl topical BID 28 Days Qty: 45 0RF omeprazole 40 mg capsule,delayed release(DR/EC) 40 mg PO BID 30 Days Qty: 60 3RF Referrals: Flakita Calero MD [Primary Care Provider] - 1 week (left sided thoracic back pain)
[2021-11-07 09:47] LABS: MANUAL DIFF FLAG NO
[2021-11-07] MEDS: ondansetron HCL 4 MG/2 ML VIAL IVPUSH (09:50)
[2021-11-07] MEDS: 0.9 % Sodium Chloride 1,000 ML 999 ML IVCONT (09:50)
[2021-11-07 10:02] LABS: Appearance Urine CLEAR; Color Urine YELLOW; Glucose Urine UA NEG (NEG); Lactic Acid 1.5 mmol/L (0.5-2.0); Leukocyte Esterase Urine NEG (NEG); Nitrite Urine NEG (NEG); PH 5.5 (5.0-8.0); Urine Blood NEG (NEG); Urine Ketones NEG (NEG); Urine Protein NEG (NEG-TRACE)
[2021-11-07 10:07] LABS: COVID-19 Test Negative (Negative); IDNOW Serial# 16C4AD1C
[2021-11-07 10:09] LABS: Basophils Percent Auto 0.3 % (0-2); Eosinophils Absolute Auto 0.1 X10*3/uL (0.0-0.4); Eosinophils Percent Auto 0.7 % (0-4); Hematocrit 43.2 % (37.0-47.0); Hemoglobin 14.2 g/dl (12.0-16.0); Imm Gran Abs Auto 0.05 X10*3/uL (0.00-0.03); Imm Gran Pct Auto 0.4 % (0.0-0.4); Lymphocytes Absolute Auto 2.7 X10*3/uL (1.2-4.9); Lymphocytes Percent Auto 22.6 % (20-40); Mean Corpuscular HGB Conc 32.9 g/dl (31.0-35.0); Mean Corpuscular Hemoglobin 29.2 pg (27.0-33.0); Mean Corpuscular Volume 88.7 fL (80.0-98.0); Mean Platelet Volume 10.2 fL (9.4-12.3); Monocytes Absolute Auto 0.6 X10*3/uL (0.1-1.2); Monocytes Percent Auto 5.3 % (2-11); Neutrophils Absolute Auto 8.3 x10*3/uL (2.0-8.3); Neutrophils Percent Auto 70.7 % (45-73); Platelet Count 356 X10*3/uL (160-400); Red Blood Count 4.87 X10*6/uL (4.20-5.50); Red Cell Distribution Width 13.6 % (11.0-16.0); White Blood Count 11.7 X10*3/uL (4.8-10.8)
[2021-11-07 10:10] LABS: Alanine Aminotransferase 23 U/L (0-31); Albumin Level 4.6 g/dL (3.5-5.0); Alkaline Phosphatase 89 U/L (39-117); Anion Gap 16 (12-20); Aspartate Amino Transferase 23 U/L (5-31); Bilirubin Direct 0.3 mg/dL (0.0-0.5); Bilirubin Total 0.9 mg/dL (0.0-1.0); Blood Urea Nitrogen 12 mg/dL (9-16); Calcium 9.9 mg/dL (8.4-10.2); Carbon Dioxide 22 mmol/L (22-29); Chloride 103 mmol/L (96-108); Creatinine Clr Calc Pharmacy 68.1; Estimated Glomerular Filt Rate > 60; Glucose Random 144 mg/dL (60-115); Magnesium 2.1 mg/dL (1.6-2.6); Potassium 4.1 mmol/L (3.3-5.1); Sodium 137 mmol/L (135-145); Total Protein 8.3 g/dL (6.5-8.0)
[2021-11-07] MEDS: Ketorolac Tromethamine 30 MG/ML VIAL IVPUSH (11:03)
[2021-11-07 11:05] VITALS: BP 178/96; PULSE 89; RESP 16; O2SAT 98
[2021-11-07] MEDS: oxyCODONE HCl Immed Release 5 MG TABLET PO (11:32)
[2021-11-07] MEDS: Lidocaine 4 % Patch ADH..PATCH 1 PATCH TRANSDERMA (11:56)
[2021-11-07] MEDS: Morphine Sulfate 4 MG/ML CARTRIDGE IVPUSH (11:57)
--- NOTE | 2021-11-07 13:33 | PC.NURSE ---
Pt now off unit for VQ scan. States pain unchanged s/pall medication interventions. Ayah aware. No diff breathing or SOB.
[2021-11-07 14:28] VITALS: BP 150/79; PULSE 74; RESP 16; TEMP 36.5; O2SAT 96
== END 2021-11-07 15:08 | disposition home or self-care (01) ==
PROVIDERS: Physician Assistant; Emergency Provider Emergency Medicine Emergency Medical Services; PCP Internal Medicine
DX: M54.6 Pain in thoracic spine (principal); R10.9 Unspecified abdominal pain; Z20.822 Contact with and (suspected) exposure to COVID-19; Z79.899 Other long term (current) drug therapy; Z87.891 Personal history of nicotine dependence
CPT/HCPCS: 36415; 74176; 78580; 80048; 80076; 81003; 83605; 83735; 85025; 87040; 87635; 96374; 96375; 96376; 99284; A9540; J1885; J2270; J2405

== ENCOUNTER 2021-12-01 08:00 | Outpatient (RCR) | payer MEDICARE, OTHER, SELFPAY ==
--- NOTE | 2021-10-28 09:23 | MHC.PT.EP ---
[facility] [place] Office [place] Office [place] Office [address] Wade Franco [address] [phone] F: [phone] F: [phone] F: [phone] F: [phone] Physical Therapy Plan of Care Date of Evaluation: Date of Surgery: n/a Diagnosis: L shoulder pain Assessment: Patient is a 61 year old R handed female who presents with s/s consistent with L shoulder pain. She is disabled but does tend to some tasks andc chores around the house such as dishes, cooking, and cleaning. She also drives. Patient past medical history includes c-spine, R shoulder and knee surgery. Current impairments include pain, posture, ROM, strength, activity tolerance and functional mobility. Functional limitations include decreased ability to lift, carry, push, pull, babysit, and sleep. Patient is motivated with good rehab potential. Skilled PT will address impairments and functional limitations in order to achieve goals. Frequency and Duration: The patient will be seen 2x/week for 5 weeks Short Term Goals: I with HEP - 2weeks AROM flexion and abd to 90 - 3 weeks Able to dress with 2/10 pain or less - 3 weeks [employer] Goals: ER/IR arc to 110 - 5 weeks SPADI 30 or better - 5 weeks AROM flexion/abd to 120 - 5 weeks Pain free ADLs - 5 weeks Treatment Plan: Modalities to reduce pain, spasms and effusion. Manual therapy to restore motion and function. Therapeutic exercise to improve strength and flexibility. Neuromuscular re-education for posture and balance. Therapeutic activities to return to functional activities of daily living. Electronically signed by: Torey Mercado, PT Please sign and return to therapist. Thank you for your referral.
--- NOTE | 2022-06-02 08:53 | MHC.PT.DC ---
[facility] [place] Office [place] Office [place] Office [address] Wade Franco [address] [phone] F: [phone] F: [phone] F: [phone] F: [phone] Physical Therapy Discharge Report Diagnosis: L shoulder pain Date of Surgery: n/a Date of Evaluation: 10/28/21 Date of Discharge: 12/14/21 Treatments to Date: 5 Cancellations to Date: No Shows to Date: Discharge Status: Independent with HEP Recommend MD Follow-up Discharge Summary: 12/01/21: we have tried a variety of interventions with Ya without success in improving impairments or functional limitations. She still has a similar symptomatic presentation and her ROM is left unchanged since evaluation. She did have a shingles flare up a few weeks back which did complicate the process. We will have 1 more visit. In all likelihood, without any change at that time we will refer her back to her referring physician for discernment of optimal next best step. 11/26/21: held on manual intervention due to increased pain. educated thoroughly on scap ret HEP in front of mirror to reduce UT compensation 11/24/21: pt missed a few appts due to shingles. she returns today still with very limited with activity tolerance due to anterior shoulder pain. ROM and rows were limited by pain tolerance today. we will continue to attempt to progress ROM as tolerated in upcoming visits. 11/03/21: progressed with ROM and scap strength. no adverse reactions. CP to finish. assess response NV and progress as tolerated. Patient is a 61 year old R handed female who presents with s/s consistent with L shoulder pain. She is disabled but does tend to some tasks andc chores around the house such as dishes, cooking, and cleaning. She also drives. Patient past medical history includes c-spine, R shoulder and knee surgery. Current impairments include pain, posture, ROM, strength, activity tolerance and functional mobility. Functional limitations include decreased ability to lift, carry, push, pull, babysit, and sleep. Patient is motivated with good rehab potential. Skilled PT will address impairments and functional limitations in order to achieve goals. Electronically signed by: Torey Jess, PT Please sign and return to therapist. Thank you for your referral.
== END 2022-06-02 08:54 | disposition home or self-care (01) ==
LOC: HO.PTCHIC 08:00
PROVIDERS: PCP Internal Medicine; Visit Provider Orthopaedic Surgery
DX: M77.8 Other enthesopathies, not elsewhere classified (principal)
CPT/HCPCS: 97110; 97140; 97162

== ENCOUNTER → 2021-12-06 09:15 | Outpatient (BNVA) | payer MEDICARE, OTHER, SELFPAY | PROVIDERS: PCP Internal Medicine; Visit Provider Orthopaedic Surgery | DX: M24.812 Other specific joint derangements of left shoulder, not elsewhere classified (principal) | CPT/HCPCS: 20610; 99212; J1100 ==

== ENCOUNTER 2021-12-09 09:06 | Emergency (ER) | payer MEDICARE, OTHER, SELFPAY ==
[2021-12-09 09:09] VITALS: BP 151/86; PULSE 95; RESP 18; TEMP 37.1; O2SAT 97
[2021-12-09 09:20] VITALS: BP 151/86; PULSE 95; RESP 18; TEMP 37.1; O2SAT 97; BMI 36.0
--- NOTE | 2021-12-09 09:31 | ED.GENADULT ---
HPI - General Adult General Chief complaint: General Medical Stated complaint: Lip swelling/feet swelling Time Seen by Provider: 12/09/21 09:31 Source: patient Mode of arrival: ambulatory Limitations: no limitations History of Present Illness HPI narrative: 61 y/o female presents to the ER with lip swelling that started yesterday. She reports a history of similar episodes in the past with unknown etiology. She states usually just resolved on its own. She states the swelling started after she left her doctor's office yesterday. It was gradual and involved both lips. She denies any new foods, medications. She is not on aspirin lisinopril. She took a dose of Benadryl yesterday with significant improvement in the lip swelling. She denies any tongue swelling or difficulty swallowing or breathing. She states when she woke up this morning she still has slight swelling in her lips and her cheeks felt a little swollen so she came to the ER for evaluation. She also noticed some swelling on the top of her right foot without any known injury. MD complaint: lip swelling Onset (ago): day(s) (1) Location: mouth, right and lower extremity Radiation: non-radiation Severity: moderate Pain Consistency: other ( improving) Relieving factors: medication Exacerbating factors: none Associated symptoms: denies other symptoms Treatments prior to arrival: none Related Data Home Medications Medication Instructions Recorded Confirmed gabapentin 300 mg capsule 300 mg PO BID 11/16/21 11/16/21 Previous Rx's Medication Instructions Recorded clotrimazole-betamethasone 1 1 appl TOPICAL BID 28 Days #45 g 02/12/21 %-0.05 % topical cream fluoxetine 20 mg capsule 40 mg PO DAILY #60 cap 07/14/21 metformin 500 mg tablet 500 mg PO ONCE #90 cap 09/09/21 atorvastatin 40 mg tablet 40 mg PO DAILY #30 cap 09/14/21 omeprazole 40 mg capsule,delayed 40 mg PO BID 30 Days #60 cap 09/14/21 release trazodone 100 mg tablet 100 mg PO BEDTIME #30 cap 10/13/21 cyclobenzaprine 10 mg tablet 10 mg PO TID PRN #10 tab 11/07/21 ibuprofen 600 mg tablet 600 mg PO Q8H PRN #14 tab 11/07/21 hydrocodone 5 mg-acetaminophen 325 1 tab PO Q8H PRN #7 tab 03/04/22 mg tablet valacyclovir 1 gram tablet 1,000 mg PO Q8H 7 Days #21 tab 11/12/21 prednisone 20 mg tablet 40 mg PO DAILY #8 tab 12/09/21 Allergies Allergy/AdvReac Type Severity Reaction Status Date / Time Iodinated Contrast Media AdvReac Intermediate Rash Verified 12/06/21 09:17 [IV CONTRAST] Review of Systems Constitutional: Constitutional: Denies chills, Denies fever(s) and Denies headache(s) Eyes: Eyes: Denies change in vision, Denies itchy eyes and Denies eye pain ENT: Denies facial pain, Denies headache(s), Denies hoarseness, Reports lip swelling, Denies mouth lesions, Denies mouth pain, Denies sore throat, Denies throat swelling and Denies tongue swelling Cardiovascular: Cardiovascular: Denies chest pain Respiratory: Respiratory: Denies cough, Denies stridor and Denies wheezing Gastrointestinal: Gastrointestinal: Denies nausea and Denies vomiting Musculoskeletal: Musculoskeletal: Denies tingling Integumentary/Breasts: Skin/Breast: Denies pruritus, Denies lesions and Denies rash Neurologic: Denies headache(s), Denies tingling and Denies paresthesias Psychiatric: Psychiatric: Reports anxiety Hematologic/Lymphatic: Hematologic/Lymphatic: Denies easy bleeding, Denies easy bruising and Denies lymphadenopathy Allergic/Immunologic: Allergic/Immunologic: Denies urticaria, Denies itchy eyes, Reports lip swelling, Denies throat swelling, Denies tongue swelling and Denies wheezing PMFSH Past Medical History Medical History Arthritis of first metatarsophalangeal (MTP) joint of left foot Calcaneal spur of left foot Deviated nasal septum Diabetes mellitus with microalbuminuria, without long-term current use of insulin Dyslipidemia Essential hypertension Herpes zoster History of pulmonary embolism History of thyroid cancer Left shoulder tendinitis Vitamin B12 deficiency Vitamin D deficiency Surgical History H/O spinal fusion History of cervical spinal surgery History of colonoscopy History of partial thyroidectomy History of shoulder surgery History of surgery History of tubal ligation Family History Family History Father Alcoholism Mother HTN (hypertension) Hyperlipidemia CVD (cardiovascular disease) Sister Hyperlipidemia Alcoholism Substance use disorder Brother No problems noted. Sister No problems noted. Sister No problems noted. Sister No problems noted. Daughter No problems noted. Daughter No problems noted. Social History Social History Housing: Apartment Alcohol intake: unknown Patient Tobacco Use Status: Former Tobacco user Years Smoked: 4 yrs e-Cigarette/Vaping Use: Never Used Second Hand Smoke Exposure: No Advance Directives: Yes Advance Directives Information Provided: Yes Advance Directives on File: No service: No Current occupational status: disabled Physical Exam ED Vital Signs: Vital Signs - 24 hr 12/09/21 09:09 12/09/21 09:20 Temperature 98.8 F 98.8 F Pulse Rate 95 95 Respiratory Rate 18 18 Blood Pressure 151/86 H 151/86 H Pulse Oximetry 97 97 BMI result Body Mass Index 36.0 Const General: cooperative, healthy appearing, comfortable and no acute distress Nutritional Appearance: average body habitus and well nourished Orientation/consciousness: patient oriented x3 Limitations: no limitations HENMT Head: Yes normal to inspection, Yes normocephalic and Yes atraumatic Ears: hearing grossly normal bilaterally General nose exam: Normal external nose present and Normal nares present Face and sinus: Yes normal facial exam and Yes face symmetric Mouth: Normal oral and palatal mucosa present, tongue normal, moist mucous membranes, no drooling and lip abnormal bilateral lower swelling Teeth and gingiva: dentition normal and gingiva normal Throat: Yes posterior oropharynx normal, Yes tonsils normal and Yes uvula midline Eyes General: appearance normal, both eyes and all related structures Neck Neck: Yes normal visual inspection and Yes no lymphadenopathy Chest Chest palpation & inspection: normal inspection of the chest Resp Effort & Inspection: normal respiratory effort and able to speak in complete sentences Auscultation: clear to auscultation bilaterally Cardio Rate: regular rate Rhythm: regular rhythm Heart sounds: S1 normal heart sound present and S2 normal heart sound present Skin General skin exam: no rashes or lesions noted Neuro General: patient oriented x3, gait normal and tone normal Extrem General: Yes normal to inspection and Yes full ROM Psych Appearance: grossly normal Mental Status: mental status grossly normal Speech and movement: Normal speech and movement present Affect: normal affect Attitude: cooperative Course Course Course Narrative: 61-year-old female presents to the ER with upper and lower lip swelling that started yesterday. She showed me photos of her lips from yesterday and she is significantly improved today. No airway involvement. Unclear etiology. She has a history of similar episodes that self resolved. She is not on lisinopril. She had allergy testing many years ago but none since. We discussed how this is most likely a histaminergic reaction and she should continue take Benadryl until completely resolved. Will also give short course of steroids. Stable for d/c home with outpatient follow up. Critical Care Time Critical Care Time Critical Care Time: No Discharge Plan Discharge Clinical Impression: Lip swelling Patient Disposition: Home, Self-Care Instructions: Allergy Testing (ED) Additional Instructions: Swelling in your lips is most likely due to a type of allergic reaction. Recommend taking Benadry l 25-50 mg every 6-8 hours until completely resolved. Take the prescribed steroid medication as directed Follow up with your doctor - you may benefit from further workup with allergy testing If you develop new or worsening symptoms call 911 or come back to the ER for further evaluation. Prescriptions: New prednisone 20 mg tablet 40 mg PO DAILY Qty: 8 0RF No Action fluoxetine 20 mg capsule 40 mg PO DAILY Qty: 60 5RF metformin 500 mg tablet 500 mg PO ONCE Qty: 90 3RF atorvastatin 40 mg tablet 40 mg PO DAILY Qty: 30 6RF trazodone 100 mg tablet 100 mg PO BEDTIME Qty: 30 1RF gabapentin 300 mg capsule 300 mg PO BID 0RF cyclobenzaprine 10 mg tablet 10 mg PO TID PRN (Reason: muscle spasm) Qty: 10 0RF ibuprofen 600 mg tablet 600 mg PO Q8H PRN (Reason: pain) Qty: 14 0RF clotrimazole-betamethasone 1-0.05 % cream 1 appl topical BID 28 Days Qty: 45 0RF valacyclovir 1 gram tablet 1,000 mg PO Q8H 7 Days Qty: 21 0RF hydrocodone-acetaminophen 5-325 mg tablet 1 tab PO Q8H PRN (Reason: severe pain (scale score 7-10)) Qty: 7 0RF omeprazole 40 mg capsule,delayed release(DR/EC) 40 mg PO BID 30 Days Qty: 60 3RF
[2021-12-09] MEDS: diphenhydrAMINE HCL 25 MG TABLET PO (10:10)
[2021-12-09] MEDS: predniSONE 20 MG TABLET 40 MG PO (10:10)
== END 2021-12-09 10:54 | disposition home or self-care (01) ==
LOC: HO.ED 09:53
PROVIDERS: Emergency Provider Emergency Medicine; PCP Internal Medicine
DX: R22.0 Localized swelling, mass and lump, head (principal)
CPT/HCPCS: 99283; Q0163

== ENCOUNTER 2021-12-20 07:19 | Outpatient (REF) | payer MEDICARE, OTHER, SELFPAY ==
--- NOTE | ~2021-12-20 | MR_ITS ---
EXAMINATION: MR SHOULDER WITHOUT CONTRAST, LEFT CLINICAL INFORMATION: Left shoulder pain. COMPARISON: Left shoulder radiographs dated 10/14/2021. TECHNIQUE: Multisequence MR imaging of the left shoulder was obtained without contrast on a high-field strength scanner. FINDINGS: ROTATOR CUFF: Mild supraspinatus tendinosis without a measurable rotator cuff tendon tear. Tiny focus of low T1/low T2 signal within the distal aspect of the infraspinatus tendon measuring up to 0.2 cm (coronal image 70/20), consistent with minimal calcific tendinitis. No muscle atrophy or fatty infiltration. BICEPS: Normal. CORACOACROMIAL ARCH: The undersurface of the acromion is curved with no subacromial spur. The acromioclavicular joint is normal. LABRUM/CAPSULE: No displaced labral tear. Intact joint capsule. GLENOHUMERAL JOINT/MARROW: Inferior articular cartilage thinning with inferior glenoid marginal osteophytes. No marrow edema or evidence of acute osseous abnormality. MR/MR shoulder LT wo con IMPRESSION: 1. Mild supraspinatus tendinosis. Minimal distal infraspinatus calcific tendinitis. No measurable rotator cuff tendon tear. 2. Mild inferior glenohumeral arthrosis.
== END 2021-12-20 07:20 | disposition home or self-care (01) ==
LOC: HO.MRI 07:19
PROVIDERS: Visit Provider Orthopaedic Surgery
DX: M24.812 Other specific joint derangements of left shoulder, not elsewhere classified (principal)
CPT/HCPCS: 73221

== ENCOUNTER → 2021-12-24 10:05 | Outpatient (BNVA) | payer MEDICARE, OTHER, SELFPAY | PROVIDERS: PCP Internal Medicine; Visit Provider Orthopaedic Surgery | DX: M19.012 Primary osteoarthritis, left shoulder (principal) | CPT/HCPCS: 99212 ==

== ENCOUNTER 2022-01-18 07:14 | Outpatient (REF) | payer MEDICARE, OTHER, SELFPAY ==
[2022-01-18 11:34] LABS: Appearance Urine CLOUDY; Color Urine YELLOW; Glucose Urine UA NEG (NEG); Leukocyte Esterase Urine NEG (NEG); Nitrite Urine NEG (NEG); PH 5.5 (5.0-8.0); Specific Gravity - Urine >= 1.030 (1.005-1.025); Urine Blood NEG (NEG); Urine Ketones NEG (NEG); Urine Protein NEG (NEG-TRACE)
[2022-01-18 11:59] LABS: Anion Gap 12 (12-20); Blood Urea Nitrogen 11 mg/dL (9-16); Calcium 9.4 mg/dL (8.4-10.2); Carbon Dioxide 27 mmol/L (22-29); Chloride 107 mmol/L (96-108); Estimated Glomerular Filt Rate > 60; Glucose Fasting 174 mg/dL (60-99); Potassium 4.6 mmol/L (3.3-5.1); Sodium 141 mmol/L (135-145)
== END 2022-01-18 07:15 | disposition home or self-care (01) ==
LOC: HO.HMGCLDS 07:14
PROVIDERS: Visit Provider Internal Medicine
DX: R35.0 Frequency of micturition (principal); E11.29 Type 2 diabetes mellitus with other diabetic kidney complication; E78.5 Hyperlipidemia, unspecified; I10 Essential (primary) hypertension; Z78.0 Asymptomatic menopausal state; Z85.850 Personal history of malignant neoplasm of thyroid
CPT/HCPCS: 36415; 80048; 81003

== ENCOUNTER → 2022-01-31 08:58 | Outpatient (BNVA) | payer MEDICARE, OTHER, SELFPAY | PROVIDERS: PCP Internal Medicine; Visit Provider Orthopaedic Surgery | DX: M19.012 Primary osteoarthritis, left shoulder (principal) | CPT/HCPCS: 99212 ==

== ENCOUNTER 2022-03-02 11:53 | Day surgery (SDC) | payer MEDICARE, OTHER, SELFPAY ==
[2022-02-23 13:16] VITALS: BMI 37.3
--- NOTE | 2022-03-01 09:02 | P.CONAN_ITS ---
Documented by User: Rashmi Otero NP 03/01/22 09:16 HPI - Anesthesia Eval Consult details Narrative: 61yo F for Left Shoulder Arthroscopy, with subacromial decompression and distal clavical excision... PMFSH Active Problems Active Problems: All Active Problems (Updated 02/23/22 @ 13:13 by Anne Lopes RN) Dyslipidemia (Acute) Essential hypertension (Acute) History of thyroid cancer (Acute) History of pulmonary embolism (Chronic) Diabetes mellitus with microalbuminuria, without long-term current use of insulin (Acute) Deviated nasal septum (Acute) Arthritis of first metatarsophalangeal (MTP) joint of left foot (Acute) Calcaneal spur of left foot (Acute) Vitamin B12 deficiency (Acute) Vitamin D deficiency (Acute) GERD (gastroesophageal reflux disease) (Acute) Left shoulder tendinitis (Acute) Internal derangement of left shoulder (Acute) AC joint arthropathy (Acute) Depression, major, recurrent, in complete remission (Acute) Past Medical History Medical History (Updated 03/02/22 @ 12:45 by Danyell Leblanc RN) COPD (chronic obstructive pulmonary disease) COVID-19 vaccine series completed Depression, major, recurrent, in complete remission Diabetes mellitus with microalbuminuria, without long-term current use of insulin Dyslipidemia Essential hypertension GERD (gastroesophageal reflux disease) Herpes zoster History of COVID-19 History of pulmonary embolism History of thyroid cancer Family History Family History Father Alcoholism Mother HTN (hypertension) Hyperlipidemia CVD (cardiovascular disease) Sister Hyperlipidemia Alcoholism Substance use disorder Brother No problems noted. Sister No problems noted. Sister No problems noted. Sister No problems noted. Daughter No problems noted. Daughter No problems noted. Surgical History Surgical History H/O spinal fusion History of cervical spinal surgery History of colonoscopy History of partial thyroidectomy History of shoulder surgery History of surgery History of tubal ligation Hx of left breast biopsy Social History Social History Housing: Apartment Alcohol intake: unknown Patient Tobacco Use Status: Former Tobacco user Quit Date: 20 yrs ago Years Smoked: 4 yrs e-Cigarette/Vaping Use: Never Used Second Hand Smoke Exposure: No Use of substances other than those prescribed or required for medical reasons: No Are you DNR?: No Advance Directives: No Advance Directives Information Provided: Yes service: No Current occupational status: disabled Meds Allergies Allergy/AdvReac Type Severity Reaction Status Date / Time Iodinated Contrast Media AdvReac Intermediate Rash Verified 03/02/22 12:19 [IV CONTRAST] Home Medications Medication Instructions Recorded Confirmed Last Taken Type trospium 60 mg capsule,extended 60 mg PO DAILY 01/23/22 03/02/22 Unknown History release 24 hr Exam Exam Date and Time: March 01, 2022 0902 Height,Weight and Vital Signs: Height 5 ft 2 in Weight 92.533 kg Pertinent Lab Results Pertinent Lab Results: Laboratory Tests 11/07/21 01/18/22 09:40 Unknown WBC 11.7 H Hgb 14.2 Hct 43.2 Plt Count 356 Sodium 141 Potassium 4.6 Chloride 107 Carbon Dioxide 27 BUN 11 Creatinine 0.85 Narrative Narrative: ECHO 2020 Nml biV function No significant valvular or pericardial pathology noted Nml PA pressures Assessment and Plan Assessment Anesthesia Assessment: Chart Reviewed Documented by User: Jorge Menendez MD 03/02/22 13:53 HPI - Anesthesia Eval Consult details Narrative: 61yo F for Left Shoulder Arthroscopy, with subacromial decompression and distal clavical excision... h/o PE in 2009 , was on warfarin and later xarelto , now patient is off xarelto since 1 year . COPD , former smoker . LUE , limited range of motion , with tingling and numbness . [facility] Past Medical History Medical History (Updated 03/02/22 @ 12:45 by Danyell Leblanc RN) COPD (chronic obstructive pulmonary disease) COVID-19 vaccine series completed Depression, major, recurrent, in complete remission Diabetes mellitus with microalbuminuria, without long-term current use of insulin Dyslipidemia Essential hypertension GERD (gastroesophageal reflux disease) Herpes zoster History of COVID-19 History of pulmonary embolism History of thyroid cancer Functional capacity: independent ambulation Family History Family History Father Alcoholism Mother HTN (hypertension) Hyperlipidemia CVD (cardiovascular disease) Sister Hyperlipidemia Alcoholism Substance use disorder Brother No problems noted. Sister No problems noted. Sister No problems noted. Sister No problems noted. Daughter No problems noted. Daughter No problems noted. Family history of problems with anesthesia: No Surgical History Surgical History H/O spinal fusion History of cervical spinal surgery History of colonoscopy History of partial thyroidectomy History of shoulder surgery History of surgery History of tubal ligation Hx of left breast biopsy History of Problems with Anesthesia: No Social History Social History Housing: Apartment Alcohol intake: unknown Patient Tobacco Use Status: Former Tobacco user Quit Date: 20 yrs ago Years Smoked: 4 yrs e-Cigarette/Vaping Use: Never Used Second Hand Smoke Exposure: No Use of substances other than those prescribed or required for medical reasons: No Are you DNR?: No Advance Directives: No Advance Directives Information Provided: Yes service: No Current occupational status: disabled Meds Allergies Allergy/AdvReac Type Severity Reaction Status Date / Time Iodinated Contrast Media AdvReac Intermediate Rash Verified 03/02/22 12:19 [IV CONTRAST] Home Medications Medication Instructions Recorded Confirmed Last Taken Type trospium 60 mg capsule,extended 60 mg PO DAILY 01/23/22 03/02/22 Unknown History release 24 hr Exam Airway Mallampati Class: III TM Dist: >3cm Neck ROM: Full Loose/Missing/Broken Teeth: Yes Heart: S1,S2 Lungs: b/l breath sounds Assessment and Plan Assessment Anesthesia Assessment: Anesthesia Plan Discussed Final Anesthetic Review Family History of Problems with Anesthesia: No History of Problems with Anesthesia: No NPO: Yes ASA Class: III Final Preanesthetic Review: Meds/Allgs Chart Reviewed, Consent Obtained/Reviewed and Anes Risks/Benef Reviewed Patient Risk: High Procedure Risk: Intermediate Anesthetic Plan Anesthetic Plan: GA and Regional Block Disposition: Standard PACU
[2022-03-02] VITALS (12 sets, daily range): BP systolic 110–168; BP diastolic 55–92; PULSE 74–90; RESP 16; TEMP 36.1–36.2; O2SAT 93–98
--- NOTE | 2022-03-02 | ECG_ITS ---
Test Reason : preop Blood Pressure : / mmHG Vent. Rate : 079 BPM Atrial Rate : 079 BPM P-R Int : 178 ms QRS Dur : 082 ms QT Int : 414 ms P-R-T Axes : 034 010 031 degrees QTc Int : 474 ms Sinus rhythm with occasional Premature ventricular complexes Possible Inferior infarct , age undetermined Abnormal ECG When compared with ECG of 18-OCT-2019 11:43, Premature ventricular complexes are now Present Borderline criteria for Inferior infarct are now Present Nonspecific T wave abnormality, worse in Inferior leads Nonspecific T wave abnormality, improved in Lateral leads Referred By: Rashmi Otero Electronically Signed By:THUY SHULTZ MD
[2022-03-02 12:35] LABS: Glucose, Whole Blood 120 mg/dL (60-115)
[2022-03-02] MEDS: Lactated Ringers 1,000 ML 100 ML IVCONT (12:39)
--- NOTE | 2022-03-02 13:01 | MHC.SHP ---
Pre-Procedural Eval Section A Date of Service: 03/02/22 The patient is an INPATIENT: No Changes since office visit: Yes Patient answered all questions; No Cold of Flu in the past 2 weeks, No New Medical Problems and No Changes in Medication The History & Physical has been completed within 30 days and I have reviewed it.: Yes Section B Chief Complaint: Primary osteoarthritis, unspecified shoulder Allergies: Allergies Allergy/AdvReac Type Severity Reaction Status Date / Time Iodinated Contrast Media AdvReac Intermediate Rash Verified 03/02/22 12:19 [IV CONTRAST] Plan I have reviewed the history and physical and performed a pertinent physical examination on my patient. No changes have occurred unless specified.
--- NOTE | 2022-03-02 13:59 | PM.OP ---
Brief Operative Note Date of Service: 03/02/22 Pre-op diagnosis: left acj arthritis and sub acromial impingement Post-op diagnosis: same Procedure: DCE and SAD Implants: none Surgeon: Danilo Rodriguez MD Anesthesia: GETA and local Was an Processing Technician used for this Procedure?: Yes Processing Technician: Desire Hernandez Estimated blood loss (mL): 20 IV fluids (mL): 500 Pathology: none sent Condition: stable Disposition: PACU
--- NOTE | 2022-03-15 11:59 | W.PM.OPN ---
Operative Note Operative Note Date of Service: 03/02/22 Narrative: Date of Service: 03/02/22 Pre-op diagnosis: left acj arthritis and sub acromial impingement Post-op diagnosis: same Procedure: DCE and SAD Implants: none Surgeon: Danilo Rodriguez MD Anesthesia: GETA and local Was an Cardiac Monitor Technician used for this Procedure?: Yes Cardiac Monitor Technician: Desire Hernandez Estimated blood loss (mL): 20 IV fluids (mL): 500 Pathology: none sent Condition: stable Disposition: PACU Procedure in detail: Patient was brought to the operating room and placed the the beach chair position. All bony prominences were well padded and the limb was prepped and draped in standard sterile fashion. A time out was called to identify proper site, proper procedure and proper surgeon. IV antibiotics per weight were administered. I began by making a posterolateral stab incision with a 15 blade. A blunt trochar was placed into the glenohumeral joint and I insufflated the joint with saline and a 30 degree arthroscope was placed. I established an outside- in anterior portal just distal to the biceps tendon. I then began my inspection of the glenohumeral joint. The articular surfaces were normal and the biceps labrum [id number] was intact and normal. There was no undersurface rotator cuff tear. The subscapularis was intact. I then removed the trochar and entered the subacromial space. A direct lateral portal was then established and I performed a bursectomy. The cuff was then examined. There was fraying of the cuff but no significant tearing. I then perfromed a 5 mm subacromial decompression and released the coracoacromial ligament. Via my anterior portal I perfromed a 5 mm distal clavicle excision preserving the superior capsule. Once I was satisfied with the decompression and distal clavicle excision, final images were captured and I removed all instrumentation. Portals were closed with nylon. Patient was placed in an abduction sling, extubated and brought to the recovery room in stable condition. There were no known complications.
== END 2022-03-02 16:30 | disposition home or self-care (01) ==
LOC: HO.SSS 11:53
PROVIDERS: PCP Internal Medicine; Visit Provider Orthopaedic Surgery
PROC: (CPT 29805; principal; 2022-03-02 13:30)
DX: M19.012 Primary osteoarthritis, left shoulder (principal); E11.9 Type 2 diabetes mellitus without complications; I10 Essential (primary) hypertension
CPT/HCPCS: 29824; 29826; 82947; 93005; J0171; J0690; J1100; J2250; J2405; J2795; J3010

== ENCOUNTER 2022-03-06 13:55 | Emergency (ER) | payer MEDICARE, OTHER, SELFPAY ==
--- NOTE | ~2022-03-06 | US_ITS ---
EXAMINATION: US VENOUS WITH DOPPLER LOWER EXTREMITY, LEFT CLINICAL INFORMATION: Calf pain status post recent surgery. COMPARISON: None TECHNIQUE: Ultrasound of the deep veins is performed from the hip to the calf with compression sonography and color and pulse Doppler assessment. Spectral analysis with color-flow imaging is performed. FINDINGS: There is normal venous compression and respiratory variation and augmented flow. The visualized common femoral vein, superficial femoral vein, profunda femoral vein, popliteal vein, and the trifurcation region shows no evidence of deep venous thrombosis. Rouleaux flow is seen in the popliteal vein. There is no significant popliteal fossa cyst. The contralateral right common femoral vein appears normal. If the patient's symptoms persist, followup ultrasound in 5 days 7 days might be of value to exclude proximal propagation from a non-visualized calf vein. US/US venous duplex LE LT IMPRESSION: No DVT demonstrated in the left lower extremity.
[2022-03-06 14:00] VITALS: BP 152/83; PULSE 105; RESP 18; TEMP 36.9; O2SAT 94; BMI 36.0
--- NOTE | 2022-03-06 14:56 | ED_ITS ---
HPI - Extremity Injury (Lower) General Chief Complaint: Extremity Injury, Lower Stated Complaint: l legpain Time Seen by Provider: 03/06/22 14:50 Source: patient Mode of arrival: ambulatory Limitations: no limitations History of Present Illness HPI Narrative: 61-year-old female with a history of blood clots, htn, COPD, HLD here with reports of pain to the left calf which she noticed with waking with no known injury or trauma. No redness, warmth, swelling, fevers or chills. No shortness of breath or chest pain. She is not currently on any anticoagulation. She is not clear why she had a blood clot. Related Data Home Medications Medication Instructions Recorded Confirmed trospium 60 mg capsule,extended 60 mg PO DAILY 01/23/22 03/02/22 release 24 hr Previous Rx's Medication Instructions Recorded clotrimazole-betamethasone 1 1 appl topical BID 4 weeks #45 02/12/21 %-0.05 % topical cream grams metformin 500 mg tablet 500 mg PO ONCE #90 caps 09/09/21 atorvastatin 40 mg tablet 40 mg PO DAILY #30 caps 09/14/21 ibuprofen 600 mg tablet 600 mg PO Q8H PRN pain #14 tabs 11/07/21 omeprazole 40 mg capsule,delayed 40 mg PO BID #60 caps 01/10/22 release fluoxetine 20 mg capsule 40 mg PO DAILY #60 caps 01/11/22 trazodone 100 mg tablet 100 mg PO BEDTIME #30 caps 02/12/22 Allergies Allergy/AdvReac Type Severity Reaction Status Date / Time Iodinated Contrast Media AdvReac Intermediate Rash Verified 03/02/22 12:19 [IV CONTRAST] Review of Systems Review of Systems: Yes all other systems are reviewed and are negative Constitutional: Constitutional: Reports no additional constitutional complaints, Denies body ache(s), Denies chills, Denies fever(s), Denies headache(s) and Denies weakness Eyes: Eyes: Reports no additional eye complaints and Denies change in vision ENT: Reports system reviewed and no additional complaints, except as documented, Denies dizziness, Denies headache(s), Denies nasal congestion, Denies nasal discharge and Denies neck pain Cardiovascular: Cardiovascular: Reports no additional cardiovascular complaints, Denies chest pain, Denies leg edema and Denies dyspnea Respiratory: Respiratory: Reports no additional respiratory complaints, Denies cough and Denies dyspnea Gastrointestinal: Gastrointestinal: Reports no additional gastrointestinal c omplaints, Denies abdominal pain, Denies diarrhea, Denies nausea and Denies vomiting Genitourinary: Genitourinary: Reports no additional female genitourinary complaints and Denies urinary incontinence Musculoskeletal: Musculoskeletal: Reports no additional musculoskeletal complaints, Denies back pain, Denies arthralgias, Denies joint swelling, Reports muscle cramps, Denies neck pain, Denies numbness and Denies tingling Integumentary/Breasts: Skin/Breast: Reports system reviewed and no additional complaints, except as docu, Denies swelling, Denies erythema and Denies rash Neurologic: Reports system reviewed and no additional complaints, except as documented, Denies Abnormal speech present, Denies dizziness, Denies headache(s), Denies numbness, Denies tingling and Denies weakness PMFSH Past Medical History Attestation statement: The following information was validated with the patient. Source: old records reviewed and nursing notes reviewed Medical History COPD (chronic obstructive pulmonary disease) COVID-19 vaccine series completed Depression, major, recurrent, in complete remission Diabetes mellitus with microalbuminuria, without long-term current use of insulin Dyslipidemia Essential hypertension GERD (gastroesophageal reflux disease) Herpes zoster History of COVID-19 History of pulmonary embolism History of thyroid cancer Surgical History H/O spinal fusion History of cervical spinal surgery History of colonoscopy History of partial thyroidectomy History of shoulder surgery History of surgery History of tubal ligation Hx of left breast biopsy Family History Family History Father Alcoholism Mother HTN (hypertension) Hyperlipidemia CVD (cardiovascular disease) Sister Hyperlipidemia Alcoholism Substance use disorder Brother No problems noted. Sister No problems noted. Sister No problems noted. Sister No problems noted. Daughter No problems noted. Daughter No problems noted. Social History Social History Housing: Apartment Alcohol intake: unknown Patient Tobacco Use Status: Former Tobacco user Quit Date: 20 yrs ago Years Smoked: 4 yrs e-Cigarette/Vaping Use: Never Used Second Hand Smoke Exposure: No Advance Directives: No Advance Directives Information Provided: No service: No Current occupational status: disabled Physical Exam Vital Signs: Vital Signs: Last Vital Signs Temp 98.5 F 03/06/22 14:00 Pulse 105 H 03/06/22 14:00 Resp 18 03/06/22 14:00 BP 152/83 H 03/06/22 14:00 Pulse Ox 94 03/06/22 14:00 O2 Del Method 03/06/22 14:00 BMI result Body Mass Index 36.0 Const: General: cooperative, healthy appearing, comfortable and no acute distress Orientation/consciousness: patient oriented x3 Limitations: no limitations HEENT: Head: Yes normal to inspection Ears: hearing grossly normal bilaterally General nose exam: Normal external nose present Face and sinus: Yes normal facial exam Mouth: Normal oral and palatal mucosa present Throat: Yes posterior oropharynx normal Eyes: General: appearance normal, both eyes and all related structures Pupils: Equal, round and reactive pupils present Neck: Neck: Yes normal visual inspection Chest: Chest palpation & inspection: normal inspection of the chest Resp: Effort & Inspection: normal respiratory effort Auscultation: clear to auscultation bilaterally Cardio: Rate: regular rate Rhythm: regular rhythm Peripheral pulses: Pe ripheral pulses 2+ throughout GI: Inspection: Yes normal to inspection Palpation (GI): Soft to palpation and nontender Auscultation: normal bowel sounds Back/Spine/Pelvis: Thoracic/Lumbar Spine: thoracic and lumbar spine normal to inspection Skin: General skin exam: no rashes or lesions noted Neuro: General: patient oriented x3, no focal motor deficits and normal sensation to monofilament Cranial nerves: Yes Equal, round and reactive pupils present Cognition (Neuro): normal cognition Speech: No Abnormal speech present Gait exam (Neuro): Normal gait present Motor exam (neuro): 5/5 motor strength present throughout Extrem: Other: To the posterior left calf there is tenderness. There is no warmth, redness or swelling. There are palpable DP and PT pulses. There is no posterior ankle pain. Negative Calderon sign. General: Yes normal to inspection Course Course Course Narrative: Ultrasound shows no evidence of deep vein thrombosis recommend follow-up with primary care doctor for any persistent symptoms for repeat ultrasound. She should also return for a numbness, weakness, redness, warmth or swelling. She should also return for any fevers or chills or shortness of breath or chest p ain. Reviewed worrisome signs and symptoms of when to return to the emergency department. Comfortable discharge home. MDM - Extremity Injury (Lower) MDM Narrative Medical decision making narrative: 61-year-old female here with a trimmed posterior calf pain with a history of blood clots not currently on anticoagulation. There is no redness, warmth or swelling to suggest cellulitis. No reports of fall or injuries so no need for x-rays. Will obtain ultrasound of the left lower extremity to rule out DVT Medical Records Attestation: I reviewed the patient's medical records. Lab Data Attestation: I reviewed the patient's lab results. Discharge Plan Discharge Clinical Impression: Acute leg pain Patient Disposition: Home, Self-Care Instructions: Leg Pain (ED) Additional Instructions: Your ultrasound shows no signs of a blood clot We do recommend that you follow-up with primary care doctor for any persistent symptoms as he may need repeat ultrasound Tylenol for pain Ice to the area Gentle stretching Prescriptions: No Action metformin 500 mg tablet 500 mg PO ONCE Qty: 90 3RF atorvastatin 40 mg tablet 40 mg PO DAILY Qty: 30 6RF omeprazole 40 mg capsule,delayed release(DR/EC) 40 mg PO BID Qty: 60 3RF fluoxetine 20 mg capsule 40 mg PO DAILY Qty: 60 5RF trazodone 100 mg tablet 100 mg PO BEDTIME Qty: 30 1RF ibuprofen 600 mg tablet 600 mg PO Q8H PRN (Reason: pain) Qty: 14 0RF clotrimazole-betamethasone 1-0.05 % cream 1 appl topical BID 28 Days Qty: 45 0RF trospium 60 mg capsule,extended release 24hr 60 mg PO DAILY Referrals: Flakita Calero MD [Primary Care Provider] - ED Physician,Generic [Physician] - 1 week (For persistent symptoms) Interventions: ED Discharge Assessment Last Done: 03/06/22 15:10 Discharge Date/Time: 03/06/22 15:11
== END 2022-03-06 15:11 | disposition home or self-care (01) ==
PROVIDERS: Emergency Provider Emergency Medicine Emergency Medical Services; PCP Internal Medicine
DX: M79.662 Pain in left lower leg (principal); I10 Essential (primary) hypertension; E11.9 Type 2 diabetes mellitus without complications; J44.9 Chronic obstructive pulmonary disease, unspecified; Z86.711 Personal history of pulmonary embolism; Z86.718 Personal history of other venous thrombosis and embolism
CPT/HCPCS: 93971; 99282; 99284

== ENCOUNTER 2022-04-28 10:00 | Outpatient (RCR) | payer MEDICARE, OTHER, SELFPAY ==
--- NOTE | 2022-03-07 09:56 | MHC.PT.EP ---
[facility] [place] Office [place] Office [place] Office [address] Wade Franco [address] [phone] F: [phone] F: [phone] F: [phone] F: [phone] Physical Therapy Plan of Care Date of Evaluation: Date of Surgery: 03/02/22 Diagnosis: SA/DCE Assessment: Pt IS A PLEASANT 61 FEMALE CURRENTLY DISABLED DUE TO LOW BACK PAIN AND OTHER MEDICAL CONDITIONS. PRIOR TO SURGERY SHE DID RECEIVE PT SERVICES BUT WAS LIMITED DUE TO PAIN. SHE NOW PRESENTS POD #5 FOR ORTHOPEDIC FOLLOW UP AND PT EVALUATION. UPON EXAM SHE DEMONSTRATES THE EXPECTED IMPAIRMENTS OF DECREASED ROM, DECREASED STRENGTH, ALTERED POSTURE AND POSITIONING, INCREASED UPPER TRAP GUARDING, AND INCREASED PAIN AND EDEMA. FUNCTIONAL LIMITATIONS INCLUDE DECREASED ABILITY TO PERFORM HOMEMAKING AND SELF-CARE TASKS, DECREASED ABILITY TO PERFORM PUSHING, PULLING, LIFTING AND REACHING., DECREASED PARTICIPATION IN COMMUNITY AND RECREATIONAL ACTIVITIES AND DISRUPTED SLEEP. THE PT IS A GOOD CANDIDATE FOR SKILLED PT DUE TO AGE, POTENTIAL REMEDIATION OF IMPAIRMENTS, TYPICAL DISEASE/CONDITION PROGRESSION AND PROGNOSIS, COMORBIDITIES, AND MOTIVATION. PT WOULD BENEFIT FROM TAILORED PROGRAM OF THERAPEUTIC ACTIVITIES, FUNCTIONAL TRAINING, GAIT TRAINING, POSTURAL EDUCATION, NEUROMUSCULAR RE-EDUCATION, AND MODALITIES NEEDED. Frequency and Duration: The patient will be seen 2 X WEEK FOR 4 WEEKS Short Term Goals: INITIATE HEP AND PROMOTE SELF MANAGEMENT OF SYMPTOMS Fpc Goals: FULL, PAIN FREE ROM FULL UE STRENGTH, PAIN FREE TO PERFORM COMPUTER AND WORK TASKS WITHOUT RESTRICTION AND PAIN NO GREATER THAN 2/[address] OBJECT AT MINIMUM OF 5# INTO CABINET AT SHOULDER HEIGHT Treatment Plan: Modalities to reduce pain, spasms and effusion. Manual therapy to restore motion and function. Therapeutic exercise to improve strength and flexibility. Neuromuscular re-education for posture and balance. Therapeutic activities to return to functional activities of daily living. Electronically signed by: SRINI LOVING PT, DPT Please sign and return to therapist. Thank you for your referral.
--- NOTE | 2022-08-25 11:44 | MHC.PT.DC ---
[facility] [place] Office [place] Office [place] Office [address] Wade Franco [address] [phone] F: [phone] F: [phone] F: [phone] F: [phone] Physical Therapy Discharge Report Diagnosis: SA/DCE Date of Surgery: 03/02/22 Date of Evaluation: 03/07/22 Date of Discharge: 05/10/22 Treatments to Date: 10 Cancellations to Date: 0 No Shows to Date: 0 Discharge Status: Improved Function Independent with HEP Patient Elected to Stop Electronically signed by: Jos Gregory PT Please sign and return to therapist. Thank you for your referral.
== END 2022-08-25 11:41 | disposition home or self-care (01) ==
LOC: HO.PTCHIC 10:00
PROVIDERS: Visit Provider Physician Assistant
DX: M77.8 Other enthesopathies, not elsewhere classified (principal)
CPT/HCPCS: 97014; 97110; 97140; 97161

== ENCOUNTER → 2022-05-18 12:28 | Outpatient (BNVA) | payer MEDICARE, OTHER, SELFPAY | PROVIDERS: PCP Internal Medicine; Visit Provider Physician Assistant | DX: M24.812 Other specific joint derangements of left shoulder, not elsewhere classified (principal) | CPT/HCPCS: 20610; 99212; J1020 ==

== ENCOUNTER → 2022-06-30 09:40 | Outpatient (BNVA) | payer MEDICARE, OTHER, SELFPAY | PROVIDERS: PCP Internal Medicine; Visit Provider Orthopaedic Surgery | DX: M24.812 Other specific joint derangements of left shoulder, not elsewhere classified (principal); Z98.1 Arthrodesis status | CPT/HCPCS: 99212 ==

== ENCOUNTER 2022-07-11 07:18 | Outpatient (REF) | payer MEDICARE, OTHER, SELFPAY | END 2022-07-11 07:19 | disposition home or self-care (01) | LOC: HO.HOSX 07:18 | PROVIDERS: Visit Provider Physician Assistant | DX: Z13.89 Encounter for screening for other disorder (principal) ==

== ENCOUNTER 2022-07-14 05:30 | Emergency (ER) | payer MEDICARE, OTHER, SELFPAY ==
--- NOTE | ~2022-07-14 | CT_ITS ---
EXAMINATION: CT ABDOMEN AND PELVIS WITHOUT CONTRAST CLINICAL INFORMATION: Left lower quadrant abdominal pain. COMPARISON: CT abdomen pelvis 11/07/2021. CT abdomen and pelvis 06/25/2020. CT abdomen pelvis 10/15/2018 TECHNIQUE: Multidetector volumetric imaging was performed from the superior aspect of the liver through the pubic symphysis. Sagittal and coronal reformatted images were obtained on the technologist's workstation. This CT examination was performed using dose optimization techniques as appropriate, variously including the following: *Automated exposure control *Adjustment of mA and/or kV according to patient size (this includes techniques or standardized protocols for targeted exams where dose is matched to indication/reason for exam; i.e. extremities or head) *Use of iterative reconstruction technique DLP: 834 mGy-cm FINDINGS: LUNG BASES: A 3 mm noncalcified nodule within the left lung base is unchanged compared with 11/10/2017 (series 6 image 1). A 2-3 mm subpleural nodule within the right lung base is unchanged compared with 10/15/2018. Utilizing the Fleischner criteria for incidentally pulmonary nodules, these pulmonary nodules are benign in appearance and warrant no additional imaging follow-up. Minimal bibasilar dependent atelectasis of the lungs is noted. Partial visualization is made of mild scattered coronary artery calcific atherosclerosis. No pericardial thickening or fluid collections noted. The heart size is grossly normal. LIVER, GALLBLADDER, AND BILIARY TREE: The liver is normal in size, shape, and attenuation. No focal hepatic lesion or biliary ductal dilatation is present. The gallbladder is unremarkable with no evidence of radiopaque gallstones, gallbladder wall thickening, or obvious pericholecystic inflammatory changes. PANCREAS: Unremarkable. SPLEEN: Unremarkable. ADRENAL GLANDS: Unremarkable. KIDNEYS AND URETERS: No hydronephrosis or perinephric inflammatory changes. A 1.8 cm diameter low density (3 Hounsfield unit) rounded benign-appearing simple cyst requiring no additional imaging follow-up is noted inferiorly within the left kidney. A duplicated left renal collecting system is again visualized. A 9 mm diameter rounded low-density (5 Hounsfield unit) focus consistent with a benign simple cyst requiring no additional imaging follow-up is noted superiorly within the left kidney. This finding is associated with a minimal punctate adjacent peripheral or cortical calcification unchanged compared with 10/15/2018. This finding remains benign in appearance and requires no additional imaging follow-up. No ureterectasis is visualized. No urolithiasis identified. BLADDER: Mild physiologic distention. No mural contour abnormalities. GASTROINTESTINAL TRACT: Normal appendix. No intestinal dilatation or mural inflammatory changes identified. Normal appearance of the sigmoid mesentery and small bowel mesentery. No free intraperitoneal fluid or gas collections visualized. Normal appearance of the stomach. No colonic diverticulosis identified. ABDOMINAL WALL: No significant hernia is appreciated. LYMPH NODES: Normal. VASCULAR: Mild scattered calcific atherosclerosis. PELVIC VISCERA: Normal flexed uterus. Scattered pelvic phleboliths. No adnexal lesions identified. OSSEOUS STRUCTURES: No suspicious appearing skeletal lesions. CT/CT abdomen pelvis wo IV con IMPRESSION: Unenhanced CT of the abdomen and pelvis: *No acute abnormalities identified. *No urolithiasis. No hydronephrosis. Incidental duplicated left renal collecting system. No diverticulosis. Normal appendix. *Partial visualization of mild coronary artery calcific atherosclerosis.
[2022-07-14 05:35] VITALS: BP 119/68; BP 160/81; PULSE 66; PULSE 70; RESP 15; TEMP 36.4; O2SAT 97; O2SAT 98; BMI 36.3
--- NOTE | 2022-07-14 05:42 | ED.FALL ---
HPI - Fall General Stated Complaint: fall Time Seen by Provider: 07/14/22 05:39 Source: patient Mode of arrival: EMS Limitations: no limitations Related Data Home Medications Medication Instructions Recorded Confirmed trospium 60 mg capsule,extended 60 mg PO DAILY 01/23/22 03/02/22 release 24 hr Previous Rx's Medication Instructions Recorded clotrimazole-betamethasone 1 1 appl topical BID 4 weeks #45 02/12/21 %-0.05 % topical cream grams metformin 500 mg tablet 500 mg PO ONCE #90 caps 09/09/21 hydrocodone 5 mg-acetaminophen 325 1 tab PO Q8H PRN pain 7 days #21 04/05/22 mg tablet tabs omeprazole 40 mg capsule,delayed 40 mg PO BID #60 caps 05/10/22 release atorvastatin 40 mg tablet 40 mg PO DAILY #30 caps 05/12/22 trazodone 100 mg tablet 100 mg PO BEDTIME #30 caps 06/09/22 celecoxib 200 mg capsule (Celebrex) 200 mg PO DAILY #30 caps 06/30/22 fluoxetine 20 mg capsule 40 mg PO DAILY #60 caps 07/10/22 Allergies Allergy/AdvReac Type Severity Reaction Status Date / Time Iodinated Contrast Media AdvReac Intermediate Rash Verified 06/30/22 09:51 [IV CONTRAST] [facility] Past Medical History Medical History (Updated 06/17/22 @ 12:46 by Flakita Calero MD) Arthritis of first metatarsophalangeal (MTP) joint of left foot Calcaneal spur of left foot COPD (chronic obstructive pulmonary disease) COVID-19 vaccine series completed Depression, major, recurrent, in complete remission Deviated nasal septum Diabetes mellitus with microalbuminuria, without long-term current use of insulin Dyslipidemia Essential hypertension GERD (gastroesophageal reflux disease) Herpes zoster History of COVID-19 History of pulmonary embolism History of thyroid cancer Left shoulder tendinitis Vitamin B12 deficiency Vitamin D deficiency Surgical History H/O spinal fusion History of cervical spinal surgery History of colonoscopy History of partial thyroidectomy History of shoulder surgery History of surgery History of tubal ligation Hx of left breast biopsy Family History Family History Father Alcoholism Mother HTN (hypertension) Hyperlipidemia CVD (cardiovascular disease) Sister Hyperlipidemia Alcoholism Substance use disorder Brother No problems noted. Sister No problems noted. Sister No problems noted. Sister No problems noted. Daughter No problems noted. Daughter No problems noted. Social History Social History Housing: Apartment Alcohol intake: unknown Patient Tobacco Use Status: Former Tobacco user Quit Date: 20 yrs ago Years Smoked: 4 yrs e-Cigarette/Vaping Use: Never Used Second Hand Smoke Exposure: No service: No Current occupational status: disabled Cognitive needs: No Hearing needs: No Vision needs: Yes Discharge Plan Discharge Prescriptions: No Action metformin 500 mg tablet 500 mg PO ONCE Qty: 90 3RF omeprazole 40 mg capsule,delayed release(DR/EC) 40 mg PO BID Qty: 60 3RF atorvastatin 40 mg tablet 40 mg PO DAILY Qty: 30 5RF trazodone 100 mg tablet 100 mg PO BEDTIME Qty: 30 1RF fluoxetine 20 mg capsule 40 mg PO DAILY Qty: 60 5RF clotrimazole-betamethasone 1-0.05 % cream 1 appl topical BID 28 Days Qty: 45 0RF trospium 60 mg capsule,extended release 24hr 60 mg PO DAILY hydrocodone-acetaminophen 5-325 mg tablet 1 tab PO Q8H PRN (Reason: pain) 7 Days Qty: 21 0RF Rx Instructions: Partial Fill upon patient request. celecoxib [Celebrex] 200 mg capsule 200 mg PO DAILY Qty: 30 2RF
--- NOTE | 2022-07-14 05:49 | ECG_ITS ---
Test Reason : DIZZY Blood Pressure : / mmHG Vent. Rate : 063 BPM Atrial Rate : 063 BPM P-R Int : 190 ms QRS Dur : 086 ms QT Int : 478 ms P-R-T Axes : 038 010 073 degrees QTc Int : 489 ms Normal sinus rhythm RSR' or QR pattern in V1 suggests right ventricular conduction delay Low voltage QRS Abnormal ECG When compared with ECG of 02-MAR-2022 12:02, Premature ventricular complexes are no longer Present Nonspecific T wave abnormality no longer evident in Inferior leads Referred By: Tali Pierre Electronically Signed By:ASHLEE HAGAN MD
[2022-07-14] MEDS: 0.9 % Sodium Chloride 1,000 ML 999 ML IVCONT (06:01)
[2022-07-14] MEDS: ondansetron HCL 4 MG/2 ML VIAL IVPUSH (06:01)
[2022-07-14] MEDS: Morphine Sulfate 4 MG/ML CARTRIDGE IVPUSH (06:01)
--- NOTE | 2022-07-14 06:04 | ED.NAVMDI ---
HPI - Nausea/Vomiting/Diarrhea General Chief complaint: Syncope Stated complaint: fall Time Seen by Provider: 07/14/22 05:39 Source: patient Mode of arrival: EMS Limitations: no limitations History of Present Illness HPI Narrative: 62 yo female with hx of HTN, HLD, DM, prior PE not on medications reports diarrhea since 9pm no sick contacts, travel, food exposures or antibiotics in last 4 weeks. She had to get up multiple times in the middle of the night to have nonbloody diarrhea. She is not on blood thinners. The last time she had an episode she felt dizzy and got herself down to the ground on all fours and thinks she briefly passed out - no trauma had already put herself down on the ground. The patient c/o n/v/d and lower abdominal pain at this time. MD elicited complaint: nausea, diarrhea and abdominal pain Onset (ago): hour(s) (10) Description of diarrhea: watery Associated nausea: Yes Associated abdominal pain: Yes Location of pain: RLQ and LLQ Pain consistency: constant Severity: moderate Quality: cramping Exacerbating factors: eating Relieving factors: none Associated symptoms: loss of appetite, malaise, nausea/vomiting, weakness and other (dizziness, syncope vs near syncope) Related Data Home Medications Medication Instructions Recorded Confirmed trospium 60 mg capsule,extended 60 mg PO DAILY 01/23/22 03/02/22 release 24 hr Previous Rx's Medication Instructions Recorded clotrimazole-betamethasone 1 1 appl topical BID 4 weeks #45 02/12/21 %-0.05 % topical cream grams metformin 500 mg tablet 500 mg PO ONCE #90 caps 09/09/21 hydrocodone 5 mg-acetaminophen 325 1 tab PO Q8H PRN pain 7 days #21 04/05/22 mg tablet tabs omeprazole 40 mg capsule,delayed 40 mg PO BID #60 caps 05/10/22 release atorvastatin 40 mg tablet 40 mg PO DAILY #30 caps 05/12/22 trazodone 100 mg tablet 100 mg PO BEDTIME #30 caps 06/09/22 celecoxib 200 mg capsule (Celebrex) 200 mg PO DAILY #30 caps 06/30/22 fluoxetine 20 mg capsule 40 mg PO DAILY #60 caps 07/10/22 Allergies Allergy/AdvReac Type Severity Reaction Status Date / Time Iodinated Contrast Media AdvReac Intermediate Rash Verified 06/30/22 09:51 [IV CONTRAST] Review of Systems Review of Systems: Constitutional : No Weight loss, No Fever, No Chills ENT/Mouth : No sore throat, No Rhinorrhea Eyes: No Swelling, No Redness Cardiovascular : No Chest Pain, No SOB, NoEdema Respiratory : No Cough, No Sputum, No Wheezing Gastrointestinal : Positive Nausea, no Vomiting, positive Diarrhea, positive abdominal Pain, No Hematochezia, No Melena Genitourinary : No Dysuria, No Urinary Frequency, No Hematuria, No Urgency Musculoskeletal : No joint pain, No Myalgias, No Joint Swelling Skin : No Skin Lesions, No rash Neuro : pos Weakness, No Numbness, pos Dizziness, No Headache Psych : No Anxiety/Panic, No Depression Heme/Lymph: No Bruising, No Lymphadenopathy Endocrine : No Polyuria, No Polydipsia All other systems reviewed and are negative. Gastrointestinal: Gastrointestinal: Reports nausea PMFSH Past Medical History Attestation statement: The following information was validated with the patient. Medical History Arthritis of first metatarsophalangeal (MTP) joint of left foot Calcaneal spur of left foot COPD (chronic obstructive pulmonary disease) COVID-19 vaccine series completed Depression, major, recurrent, in complete remission Deviated nasal septum Diabetes mellitus with microalbuminuria, without long-term current use of insulin Dyslipidemia Essential hypertension GERD (gastroesophageal reflux disease) Herpes zoster History of COVID-19 History of pulmonary embolism History of thyroid cancer Left shoulder tendinitis Vitamin B12 deficiency Vitamin D deficiency Surgical History H/O spinal fusion History of cervical spinal surgery History of colonoscopy History of partial thyroidectomy History of shoulder surgery History of surgery History of tubal ligation Hx of left breast biopsy Family History Family History Father Alcoholism Mother HTN (hypertension) Hyperlipidemia CVD (cardiovascular disease) Sister Hyperlipidemia Alcoholism Substance use disorder Brother No problems noted. Sister No problems noted. Sister No problems noted. Sister No problems noted. Daughter No problems noted. Daughter No problems noted. Social History Social History Housing: Apartment Alcohol intake: unknown Patient Tobacco Use Status: Former Tobacco user Quit Date: 20 yrs ago Years Smoked: 4 yrs e-Cigarette/Vaping Use: Never Used Second Hand Smoke Exposure: No Advance Directives: No service: No Current occupational status: disabled Cognitive needs: No Hearing needs: No Vision needs: Yes Physical Exam Vital Signs: Vital Signs: Last Vital Signs Temp 97.5 F 07/14/22 07:53 Pulse 69 07/14/22 10:29 Resp 16 07/14/22 10:29 BP 118/64 07/14/22 10:29 Pulse Ox 97 07/14/22 10:29 O2 Del Method 07/14/22 10:29 BMI result Body Mass Index 36.3 Appearance: Alert. Oriented X3. No acute distress. Eyes: Pupils equal, round and reactive to light. ENT: Pharynx normal. atraumatic Neck: Normal inspection. Neck supple. CVS: Normal heart rate and rhythm. Pulses normal. Respiratory: No respiratory distress. Breath sounds normal. Abdomen: Soft and ttp along lower abdomen no rebound or guarding Skin: Skin warm and dry. Normal skin color. Normal skin turgor. Extremities: No lower extremity edema. No calf ttp Neuro: Oriented X 3. No motor deficit. No sensory deficit. Course Course Course Narrative: repeat lactic acid and trop are negative feels better, diarrhea has subsided, CT scan negative can be DC home - up and walking steady gait MDM - Nausea/Vomiting/Diarrhea MDM Narrative Medical decision making narrative: 62 yo female with hx of HTN, HLD, DM, prior PE not on medications here with syncope without trauma vs near syncope related to multiple episodes of nonbloody diarrhea without known risk factors for having diarrhea. At this time will need labs, IVF, IV morphine for pain, CT scan for colitis/diverticulitis. Has no CP/SOB to suggest PE and with her prior episodes of PE did not present this way. Dispo per results and findings. Lab Data Result diagrams: 07/14/22 06:01 07/14/22 06:01 Labs: Lab Results 07/14/22 07/14/22 07/14/22 Range/Units 06:00 06:01 06:01 WBC 7.6 (4.8-10.8) X10*3/uL RBC 4.37 (4.20-5.50) X10*6/uL Hgb 12.6 (12.0-16.0) g/dl Hct 38.4 (37.0-47.0) % MCV 87.9 (80.0-98.0) fL MCH 28.8 (27.0-33.0) pg MCHC 32.8 (31.0-35.0) g/dl RDW 14.2 (11.0-16.0) % Plt Count 265 D (160-400) X10*3/uL MPV 10.0 (9.4-12.3) fL Immature Gran % (Auto) 0.3 (0.0-0.4) % Neut % (Auto) 63.8 (45-73) % Lymph % (Auto) 29.8 (20-40) % Orange % (Auto) 4.5 (2-11) % Eos % (Auto) 1.3 (0-4) % Baso % (Auto) 0.3 (0-2) % Lymph # (Auto) 2.3 (1.2-4.9) X10*3/uL Orange # (Auto) 0.3 (0.1-1.2) X10*3/uL Eos # (Auto) 0.1 (0.0-0.4) X10*3/uL Baso # (Auto) 0.0 (0.0-0.2) X10*3/uL Abs Immat Gran (auto) 0.02 (0.00-0.03) X10*3/uL Absolute Neuts (auto) 4.8 (2.0-8.3) x10*3/uL Absolute Nucleated RBC 0.000 (0.0-0.012) X10*3/uL Nucleated RBC % (auto) 0.0 (0.0-0.2) /100WBC Sodium 137 (135-145) mmol/L Potassium 4.0 (3.3-5.1) mmol/L Chloride 106 (96-108) mmol/L Carbon Dioxide 19 L (22-29) mmol/L Anion Gap 16 (12-20) BUN 15 (9-16) mg/dL Creatinine 1.09 (0.5-1.4) mg/dL Estim Creat Clear Calc 56.6 Estimated GFR 51 Random Glucose 170 H (60-115) mg/dL Lactic Acid 2.3 H* (0.5-2.0) mmol/L Lactic Acid F/U @ 2Hr (0.5-2.0) mmol/L Calcium 9.3 (8.4-10.2) mg/dL Magnesium 1.8 (1.6-2.6) mg/dL Total Bilirubin 0.9 (0.0-1.0) mg/dL Direct Bilirubin 0.3 (0.0-0.5) mg/dL AST 15 (5-31) U/L ALT 17 (0-31) U/L Alkaline Phosphatase 89 (39-117) U/L Troponin I High Sens (<3.5-17.0) ng/L C-Reactive Protein 0.23 (< or = 0.50) mg/dL Total Protein 6.9 (6.5-8.0) g/dL Albumin 4.1 (3.5-5.0) g/dL Lipase 15 (8-78) U/L Urine Color Urine Appearance Urine pH (5.0-9.0) Ur Specific Orrum (1.005-1.025) Urine Protein (Neg-Trace) mg/dL Urine Glucose (UA) (Negative) mg/dL Urine Ketones (Negative) mg/dL Urine Blood (Negative) Urine Nitrite (Negative) Ur Leukocyte Esterase (Negative) Urine RBC (0-2) /HPF Urine WBC (0-5) /HPF Ur Squamous Epith Cells (0-2) /HPF Urine Bacteria (None Seen) Hyaline Casts (0-2) /LPF C. difficile Tox B Gene (Negative) COVID-19 ([facility]) (Negative) COVID-19 Clin Com 07/14/22 07/14/22 07/14/22 Range/Units 06:01 06:01 06:23 WBC (4.8-10.8) X10*3/uL RBC (4.20-5.50) X10*6/uL Hgb (12.0-16.0) g/dl Hct (37.0-47.0) % MCV (80.0-98.0) fL MCH (27.0-33.0) pg MCHC (31.0-35.0) g/dl RDW (11.0-16.0) % Plt Count (160-400) X10*3/uL MPV (9.4-12.3) fL Immature Gran % (Auto) (0.0-0.4) % Neut % (Auto) (45-73) % Lymph % (Auto) (20-40) % Orange % (Auto) (2-11) % Eos % (Auto) (0-4) % Baso % (Auto) (0-2) % Lymph # (Auto) (1.2-4.9) X10*3/uL Orange # (Auto) (0.1-1.2) X10*3/uL Eos # (Auto) (0.0-0.4) X10*3/uL Baso # (Auto) (0.0-0.2) X10*3/uL Abs Immat Gran (auto) (0.00-0.03) X10*3/uL Absolute Neuts (auto) (2.0-8.3) x10*3/uL Absolute Nucleated RBC (0.0-0.012) X10*3/uL Nucleated RBC % (auto) (0.0-0.2) /100WBC Sodium (135-145) mmol/L Potassium (3.3-5.1) mmol/L Chloride (96-108) mmol/L Carbon Dioxide (22-29) mmol/L Anion Gap (12-20) BUN (9-16) mg/dL Creatinine (0.5-1.4) mg/dL Estim Creat Clear Calc Estimated GFR Random Glucose (60-115) mg/dL Lactic Acid (0.5-2.0) mmol/L Lactic Acid F/U @ 2Hr (0.5-2.0) mmol/L Calcium (8.4-10.2) mg/dL Magnesium (1.6-2.6) mg/dL Total Bilirubin (0.0-1.0) mg/dL Direct Bilirubin (0.0-0.5) mg/dL AST (5-31) U/L ALT (0-31) U/L Alkaline Phosphatase (39-117) U/L Troponin I High Sens 5.1 (<3.5-17.0) ng/L C-Reactive Protein (< or = 0.50) mg/dL Total Protein (6.5-8.0) g/dL Albumin (3.5-5.0) g/dL Lipase (8-78) U/L Urine Color Urine Appearance Urine pH (5.0-9.0) Ur Specific Orrum (1.005-1.025) Urine Protein (Neg-Trace) mg/dL Urine Glucose (UA) (Negative) mg/dL Urine Ketones (Negative) mg/dL Urine Blood (Negative) Urine Nitrite (Negative) Ur Leukocyte Esterase (Negative) Urine RBC (0-2) /HPF Urine WBC (0-5) /HPF Ur Squamous Epith Cells (0-2) /HPF Urine Bacteria (None Seen) Hyaline Casts (0-2) /LPF C. difficile Tox B Gene NEGATIVE (Negative) COVID-19 ([facility]) Negative (Negative) COVID-19 Clin Com See Note 07/14/22 07/14/22 07/14/22 Range/Units 08:24 08:24 10:26 WBC (4.8-10.8) X10*3/uL RBC (4.20-5.50) X10*6/uL Hgb (12.0-16.0) g/dl Hct (37.0-47.0) % MCV (80.0-98.0) fL MCH (27.0-33.0) pg MCHC (31.0-35.0) g/dl RDW (11.0-16.0) % Plt Count (160-400) X10*3/uL MPV (9.4-12.3) fL Immature Gran % (Auto) (0.0-0.4) % Neut % (Auto) (45-73) % Lymph % (Auto) (20-40) % Orange % (Auto) (2-11) % Eos % (Auto) (0-4) % Baso % (Auto) (0-2) % Lymph # (Auto) (1.2-4.9) X10*3/uL Orange # (Auto) (0.1-1.2) X10*3/uL Eos # (Auto) (0.0-0.4) X10*3/uL Baso # (Auto) (0.0-0.2) X10*3/uL Abs Immat Gran (auto) (0.00-0.03) X10*3/uL Absolute Neuts (auto) (2.0-8.3) x10*3/uL Absolute Nucleated RBC (0.0-0.012) X10*3/uL Nucleated RBC % (auto) (0.0-0.2) /100WBC Sodium (135-145) mmol/L Potassium (3.3-5.1) mmol/L Chloride (96-108) mmol/L Carbon Dioxide (22-29) mmol/L Anion Gap (12-20) BUN (9-16) mg/dL Creatinine (0.5-1.4) mg/dL Estim Creat Clear Calc Estimated GFR Random Glucose (60-115) mg/dL Lactic Acid (0.5-2.0) mmol/L Lactic Acid F/U @ 2Hr 2.0 (0.5-2.0) mmol/L Calcium (8.4-10.2) mg/dL Magnesium (1.6-2.6) mg/dL Total Bilirubin (0.0-1.0) mg/dL Direct Bilirubin (0.0-0.5) mg/dL AST (5-31) U/L ALT (0-31) U/L Alkaline Phosphatase (39-117) U/L Troponin I High Sens 3.5 (<3.5-17.0) ng/L C-Reactive Protein (< or = 0.50) mg/dL Total Protein (6.5-8.0) g/dL Albumin (3.5-5.0) g/dL Lipase (8-78) U/L Urine Color Yellow Urine Appearance Clear Urine pH 5.0 (5.0-9.0) Ur Specific Orrum 1.010 (1.005-1.025) Urine Protein Negative (Neg-Trace) mg/dL Urine Glucose (UA) Negative (Negative) mg/dL Urine Ketones Negative (Negative) mg/dL Urine Blood Negative (Negative) Urine Nitrite Negative (Negative) Ur Leukocyte Esterase Trace H (Negative) Urine RBC 0-2 (0-2) /HPF Urine WBC 0-5 (0-5) /HPF Ur Squamous Epith Cells 6-10 (0-2) /HPF Urine Bacteria 4+ (None Seen) Hyaline Casts 3-5 (0-2) /LPF C. difficile Tox B Gene (Negative) COVID-19 ([facility]) (Negative) COVID-19 Clin Com ECG Data Attestation: I personally reviewed and interpreted this ECG as follows: ECG interpretation date: 07/14/22 ECG interpretation time: 06:08 Interpretation: Rate: 63 Rhythm: NSR Mobile: normal Normal P waves. Normal VINNY. Normal QRS complex. ST T wave : inverted t waves V1-V2, nonspecific aVL, no SAVITA qTC: normal prior studies: no sig change February 2022 The study has been interpreted contemporaneously by me. . Discharge Plan Discharge Clinical Impression: Vasovagal syncope, Acute dehydration Diarrhea Qualifiers: Diarrhea type: unspecified type Qualified Code(s): R19.7 - Diarrhea, unspecified Patient Disposition: Home, Self-Care Instructions: Dehydration (ED), Syncope (ED), Acute Diarrhea (ED) Additional Instructions: return to ED for any worsening symptoms or concerns stay hydrated, can take immodium over the counter as long as you have no fevers or bloody stools you have incidental findings on your CT scan not related to today please follow up with your primary care doctor - see below FINDINGS: LUNG BASES: A 3 mm noncalcified nodule within the left lung base is unchanged compared with 11/10/2017 (series 6 image 1). A 2-3 mm subpleural nodule within the right lung base is unchanged compared with 10/15/2018. Utilizing the Fleischner criteria for incidentally pulmonary nodules, these pulmonary nodules are benign in appearance and warrant no additional imaging follow-up. Minimal bibasilar dependent atelectasis of the lungs is noted. Partial visualization is made of mild scattered coronary artery calcific atherosclerosis. No pericardial thickening or fluid collections noted. The heart size is grossly normal.? LIVER, GALLBLADDER, AND BILIARY TREE: The liver is normal in size, shape, and attenuation. No focal hepatic lesion or biliary ductal dilatation is present. The gallbladder is unremarkable with no evidence of radiopaque gallstones, gallbladder wall thickening, or obvious pericholecystic inflammatory changes.? PANCREAS: Unremarkable.? SPLEEN: Unremarkable.? ADRENAL GLANDS: Unremarkable.? KIDNEYS AND URETERS: No hydronephrosis or perinephric inflammatory changes. A 1.8 cm diameter low density (3 Hounsfield unit) rounded benign-appearing simple cyst requiring no additional imaging follow-up is noted inferiorly within the left kidney. A duplicated left renal collecting system is again visualized. A 9 mm diameter rounded low-density (5 Hounsfield unit) focus consistent with a benign simple cyst requiring no additional imaging follow-up is noted superiorly within the left kidney. This finding is associated with a minimal punctate adjacent peripheral or cortical calcification unchanged compared with 10/15/2018. This finding remains benign in appearance and requires no additional imaging follow-up. No ureterectasis is visualized. No urolithiasis identified. BLADDER: Mild physiologic distention. No mural contour abnormalities.? GASTROINTESTINAL TRACT: Normal appendix. No intestinal dilatation or mural inflammatory changes identified. Normal appearance of the sigmoid mesentery and small bowel mesentery. No free intraperitoneal fluid or gas collections visualized. Normal appearance of the stomach. No colonic diverticulosis identified.? ABDOMINAL WALL: No significant hernia is appreciated.? LYMPH NODES: Normal. VASCULAR: Mild scattered calcific atherosclerosis. PELVIC VISCERA: Normal flexed uterus. Scattered pelvic phleboliths. No adnexal lesions identified.? OSSEOUS STRUCTURES: No suspicious appearing skeletal lesions.? CT/CT abdomen pelvis wo IV con IMPRESSION: Unenhanced CT of the abdomen and pelvis: *No acute abnormalities identified. *No urolithiasis. No hydronephrosis. Incidental duplicated left renal collecting system. No diverticulosis. Normal appendix. *Partial visualization of mild coronary artery calcific atherosclerosis. Prescriptions: No Action metformin 500 mg tablet 500 mg PO ONCE Qty: 90 3RF omeprazole 40 mg capsule,delayed release(DR/EC) 40 mg PO BID Qty: 60 3RF atorvastatin 40 mg tablet 40 mg PO DAILY Qty: 30 5RF trazodone 100 mg tablet 100 mg PO BEDTIME Qty: 30 1RF fluoxetine 20 mg capsule 40 mg PO DAILY Qty: 60 5RF clotrimazole-betamethasone 1-0.05 % cream 1 appl topical BID 28 Days Qty: 45 0RF trospium 60 mg capsule,extended release 24hr 60 mg PO DAILY hydrocodone-acetaminophen 5-325 mg tablet 1 tab PO Q8H PRN (Reason: pain) 7 Days Qty: 21 0RF Rx Instructions: Partial Fill upon patient request. celecoxib [Celebrex] 200 mg capsule 200 mg PO DAILY Qty: 30 2RF Interventions: ED Discharge Assessment Last Done: 07/14/22 11:11 Discharge Date/Time: 07/14/22 11:50
[2022-07-14 06:07] LABS: MANUAL DIFF FLAG NO
[2022-07-14 06:18] LABS: Basophils Percent Auto 0.3 % (0-2); Eosinophils Absolute Auto 0.1 X10*3/uL (0.0-0.4); Eosinophils Percent Auto 1.3 % (0-4); Hematocrit 38.4 % (37.0-47.0); Hemoglobin 12.6 g/dl (12.0-16.0); Imm Gran Abs Auto 0.02 X10*3/uL (0.00-0.03); Imm Gran Pct Auto 0.3 % (0.0-0.4); Lymphocytes Absolute Auto 2.3 X10*3/uL (1.2-4.9); Lymphocytes Percent Auto 29.8 % (20-40); Mean Corpuscular HGB Conc 32.8 g/dl (31.0-35.0); Mean Corpuscular Hemoglobin 28.8 pg (27.0-33.0); Mean Corpuscular Volume 87.9 fL (80.0-98.0); Monocytes Absolute Auto 0.3 X10*3/uL (0.1-1.2); Monocytes Percent Auto 4.5 % (2-11); Neutrophils Absolute Auto 4.8 x10*3/uL (2.0-8.3); Neutrophils Percent Auto 63.8 % (45-73); Platelet Count 265 X10*3/uL (160-400); Red Blood Count 4.37 X10*6/uL (4.20-5.50); Red Cell Distribution Width 14.2 % (11.0-16.0); White Blood Count 7.6 X10*3/uL (4.8-10.8)
[2022-07-14 06:22] LABS: COVID-19 Test Negative (Negative)
[2022-07-14 06:29] LABS: Alanine Aminotransferase 17 U/L (0-31); Albumin Level 4.1 g/dL (3.5-5.0); Alkaline Phosphatase 89 U/L (39-117); Anion Gap 16 (12-20); Aspartate Amino Transferase 15 U/L (5-31); Bilirubin Direct 0.3 mg/dL (0.0-0.5); Bilirubin Total 0.9 mg/dL (0.0-1.0); Blood Urea Nitrogen 15 mg/dL (9-16); C Reactive Protein 0.23 mg/dL (< or = 0.50); Calcium 9.3 mg/dL (8.4-10.2); Carbon Dioxide 19 mmol/L (22-29); Chloride 106 mmol/L (96-108); Creatinine Clr Calc Pharmacy 56.6; Estimated Glomerular Filt Rate 51; Glucose Random 170 mg/dL (60-115); Lipase 15 U/L (8-78); Magnesium 1.8 mg/dL (1.6-2.6); Sodium 137 mmol/L (135-145); Total Protein 6.9 g/dL (6.5-8.0)
[2022-07-14 06:29] LABS: Lactic Acid 2.3 mmol/L (0.5-2.0)
[2022-07-14 06:34] LABS: Troponin-I High Sensitivity 5.1 ng/L (<3.5-17.0)
[2022-07-14 07:15] LABS: CDiff Gene PCR NEGATIVE (Negative)
[2022-07-14 07:53] VITALS: BP 136/67; PULSE 77; RESP 16; TEMP 36.4; O2SAT 95
[2022-07-14 08:04] LABS: Reflex Lactate? Lactic Acid Added
[2022-07-14 08:50] LABS: Troponin-I High Sensitivity 3.5 ng/L (<3.5-17.0)
[2022-07-14] MEDS: 0.9 % Sodium Chloride 1,000 ML 999 ML IV (09:25)
[2022-07-14 10:29] VITALS: BP 118/64; PULSE 69; RESP 16; O2SAT 97
[2022-07-14 10:42] LABS: Appearance Urine Clear; Color Urine Yellow; Glucose Urine UA Negative (Negative); Leukocyte Esterase Urine Trace (Negative); Nitrite Urine Negative (Negative); UMIC TRIGGER UACC YES; Urine Blood Negative (Negative); Urine Ketones Negative (Negative); Urine Protein Negative (Neg-Trace)
[2022-07-14 11:03] LABS: Bacteria Urine 4+ (None Seen); RBC Urine 0-2 /HPF (0-2); WBC Urine 0-5 /HPF (0-5)
== END 2022-07-14 11:50 | disposition home or self-care (01) ==
PROVIDERS: Emergency Provider Emergency Medicine; PCP Internal Medicine
DX: R55 Syncope and collapse (principal); R19.7 Diarrhea, unspecified; E86.0 Dehydration; Z20.822 Contact with and (suspected) exposure to COVID-19
CPT/HCPCS: 36415; 74176; 80048; 80076; 81001; 83605; 83690; 83735; 84484; 85025; 86140; 87493; 87635; 93005; 96361; 96374; 96375; 99284; J2270; J2405

== ENCOUNTER 2022-10-04 07:54 | Outpatient (REF) | payer MEDICARE, OTHER, SELFPAY ==
[2022-10-04 12:18] LABS: Estimated Average Glucose 143 mg/dL; Hemoglobin A1c % 6.6 %
[2022-10-04 12:34] LABS: Alanine Aminotransferase 19 U/L (0-31); Albumin Level 3.9 g/dL (3.5-5.0); Alkaline Phosphatase 94 U/L (39-117); Anion Gap 14 (12-20); Aspartate Amino Transferase 15 U/L (5-31); Blood Urea Nitrogen 11 mg/dL (9-16); Calcium 9.1 mg/dL (8.4-10.2); Carbon Dioxide 25 mmol/L (22-29); Chloride 106 mmol/L (96-108); Cholesterol 130 mg/dL; Estimated Glomerular Filt Rate 57; Glucose Fasting 140 mg/dL (60-99); HDL Cholesterol 30 mg/dL; LDL Cholesterol Calculated 71 mg/dl; Sodium 141 mmol/L (135-145); Total Protein 6.6 g/dL (6.5-8.0); Triglycerides 147 mg/dL
== END 2022-10-04 07:55 | disposition home or self-care (01) ==
LOC: HO.HMGCLDS 07:54
PROVIDERS: PCP Internal Medicine; Visit Provider Internal Medicine
DX: E11.29 Type 2 diabetes mellitus with other diabetic kidney complication (principal); E55.9 Vitamin D deficiency, unspecified; I10 Essential (primary) hypertension; R80.9 Proteinuria, unspecified; E78.5 Hyperlipidemia, unspecified
CPT/HCPCS: 36415; 80053; 80061; 82306; 83036

== ENCOUNTER 2022-10-05 10:28 | Outpatient (REF) | payer MEDICARE, OTHER, SELFPAY ==
[2022-10-05 12:35] LABS: Creatinine Urine 76.45 mg/dL; Microalbum/Creatinine Ratio Ur 6.5 ug/mg cr
== END 2022-10-05 10:29 | disposition home or self-care (01) ==
LOC: HO.HMGCLDS 10:28
PROVIDERS: PCP Internal Medicine; Visit Provider Internal Medicine
DX: E11.29 Type 2 diabetes mellitus with other diabetic kidney complication (principal); E78.5 Hyperlipidemia, unspecified; I10 Essential (primary) hypertension; R80.9 Proteinuria, unspecified; E55.9 Vitamin D deficiency, unspecified
CPT/HCPCS: 82043

== ENCOUNTER 2022-10-24 10:10 | Outpatient (REF) | payer MEDICARE, OTHER, SELFPAY ==
--- NOTE | ~2022-10-24 | MM_ITS ---
EXAMINATION: MM SCREENING DIGITAL BREAST TOMOSYNTHESIS, BILATERAL CLINICAL INFORMATION: Screening. Asymptomatic. Prior history benign surgical biopsy left breast 05.20.2014 (Focal adenosis, mild fibrocystic changes, no atypia). The lifetime risk of breast cancer based on the Tyrer-Cuzick Model is 5%. COMPARISON: Multiple prior studies, most recent 10/20/2021. TECHNIQUE: Digital breast tomosynthesis is performed in both the craniocaudal and mediolateral oblique views along with computer-aided detection (CAD). Synthesized 2D images are generated from the tomosynthesis. FINDINGS: There are scattered areas of fibroglandular density (ACR BI-RADS breast composition Category b). There are no significant masses, abnormal calcifications, or other abnormalities. No architectural abnormality or developing density or significant change from prior studies. MM/MM tomosynthesis screening BI IMPRESSION: No mammographic evidence of malignancy. ASSESSMENT: BI-RADS 1: Negative RECOMMENDATION: Routine annual mammography screening. This patient's information was entered into a reminder system with a target due date for their next mammogram.
== END 2022-10-24 10:11 | disposition home or self-care (01) ==
LOC: HO.MAMMO 10:10
PROVIDERS: PCP Internal Medicine; Visit Provider Internal Medicine
DX: Z12.31 Encounter for screening mammogram for malignant neoplasm of breast (principal)
CPT/HCPCS: 77063; 77067

== ENCOUNTER 2022-11-01 19:09 | Inpatient (IN) | payer MEDICARE, OTHER, SELFPAY ==
--- NOTE | ~2022-11-01 | XR_ITS ---
EXAMINATION: XR CHEST CLINICAL INFORMATION: Fever COMPARISON: Chest radiograph 09/07/2021 CT abdomen pelvis 07/14/2022 TECHNIQUE: Frontal view of the chest was obtained. FINDINGS: The heart and pulmonary vessels appear normal. No evidence of CHF. Some patchy ill-defined consolidation is present at the left lung base consistent with pneumonia. No pleural effusions. The bony thorax is unremarkable. XR/XR chest 1V IMPRESSION: Left lower lobe pneumonia.
--- NOTE | ~2022-11-01 | CT_ITS ---
CT head/brain wo IV con CLINICAL INFORMATION: Reason for Exam dizziness COMPARISON: Prior head CT 2020 TECHNIQUE: Department standard protocol. This CT examination was performed using dose optimization techniques as appropriate, variously including the following: *Automated exposure control *Adjustment of mA and/or kV according to patient size (this includes techniques or standardized protocols for targeted exams where dose is matched to indication/reason for exam; i.e. extremities or head) *Use of iterative reconstruction technique DLP: 653 mGy-cm FINDINGS: CEREBRAL HEMISPHERES: There is no evidence of intra-axial or extra-axial mass, hemorrhage or acute infarct. BRAIN PARENCHYMA: Normal pelaez-white matter differentiation. SUBDURAL SPACE: No bleed. BASAL GANGLIA AND PINEAL GLAND: Unremarkable VENTRICLES: Symmetric and normal in size. CEREBELLUM AND BRAINSTEM: No space-occupying mass, hemorrhage or acute infarct. CEREBELLOPONTINE ANGLES: No lesion found. ORBITS: No intraorbital mass. VESSELS: Unremarkable SKULL BASE: Unremarkable INCLUDED SINUSES AT SKULL BASE: Redemonstration of near complete opacification of the right axillary sinus with internal calcification, this is chronic and has not changed. SKULL AND SKIN: No fracture or bone lesion found. CT/CT head/brain wo IV con IMPRESSION: * No CT evidence of intracranial space-occupying mass, bleed or infarct. * Redemonstration of near complete opacification of the right maxillary sinus with internal calcification, this is chronic and has not changed.
[2022-11-01 19:13] VITALS: BP 145/85; BP 146/74; PULSE 104; PULSE 112; RESP 16; TEMP 39.2; O2SAT 95; BMI 36.7
--- NOTE | 2022-11-01 19:24 | ECG_ITS ---
Test Reason : sepsis Blood Pressure : / mmHG Vent. Rate : 094 BPM Atrial Rate : 094 BPM P-R Int : 186 ms QRS Dur : 090 ms QT Int : 400 ms P-R-T Axes : 030 006 036 degrees QTc Int : 500 ms Normal sinus rhythm Possible Inferior infarct (cited on or before 01-NOV-2022) T wave abnormality, consider anterior ischemia Abnormal ECG When compared with ECG of 14-JUL-2022 05:48, Vent. rate has increased BY 31 BPM Nonspecific T wave abnormality now evident in Inferior leads Inverted T waves have replaced nonspecific T wave abnormality in Anterior leads Referred By: Ada Graf Electronically Signed By:YAKOV ROBERT
--- NOTE | 2022-11-01 19:27 | PC.NURSE ---
Preliminary med rec completed with patient.
--- NOTE | 2022-11-01 19:43 | PHA.MEDREC ---
Pharmacy Consult ? Medication Reconciliation Pharmacy has completed the medication reconciliation.
[2022-11-01 19:44] LABS: MANUAL DIFF FLAG NO
[2022-11-01] MEDS: Acetaminophen 325 MG TABLET 650 MG PO (19:44)
[2022-11-01 19:45] VITALS: BP 130/70; PULSE 108; RESP 26; O2SAT 96
[2022-11-01 19:45] LABS: Basophils Percent Auto 0.2 % (0-2); Eosinophils Percent Auto 0.4 % (0-4); Hematocrit 36.8 % (37.0-47.0); Hemoglobin 12.1 g/dl (12.0-16.0); Imm Gran Abs Auto 0.02 X10*3/uL (0.00-0.03); Imm Gran Pct Auto 0.4 % (0.0-0.4); Lymphocytes Absolute Auto 0.8 X10*3/uL (1.2-4.9); Mean Corpuscular HGB Conc 32.9 g/dl (31.0-35.0); Mean Corpuscular Hemoglobin 27.7 pg (27.0-33.0); Mean Corpuscular Volume 84.2 fL (80.0-98.0); Mean Platelet Volume 9.7 fL (9.4-12.3); Monocytes Absolute Auto 0.6 X10*3/uL (0.1-1.2); Monocytes Percent Auto 11.7 % (2-11); Neutrophils Absolute Auto 3.7 x10*3/uL (2.0-8.3); Neutrophils Percent Auto 72.3 % (45-73); Platelet Count 209 X10*3/uL (160-400); Red Blood Count 4.37 X10*6/uL (4.20-5.50); Red Cell Distribution Width 13.8 % (11.0-16.0); White Blood Count 5.1 X10*3/uL (4.8-10.8)
[2022-11-01] MEDS: SODIUM CHLORIDE 2733 ML IV (19:49)
[2022-11-01 19:55] LABS: Lactic Acid 1.1 mmol/L (0.5-2.0)
[2022-11-01] MEDS: cefTRIAXone sodium 1 GM in 0.9 % Sodium Chloride 50 ML IV (19:58)
[2022-11-01 20:00] VITALS: BP 135/72; PULSE 92; RESP 20; TEMP 37.2; O2SAT 98
[2022-11-01 20:00] LABS: Alanine Aminotransferase 23 U/L (0-31); Albumin Level 3.9 g/dL (3.5-5.0); Alkaline Phosphatase 87 U/L (39-117); Anion Gap 13 (12-20); Aspartate Amino Transferase 21 U/L (5-31); Bilirubin Direct 0.2 mg/dL (0.0-0.5); Blood Urea Nitrogen 11 mg/dL (9-16); Calcium 8.8 mg/dL (8.4-10.2); Carbon Dioxide 24 mmol/L (22-29); Chloride 104 mmol/L (96-108); Creatinine Clr Calc Pharmacy 63.9; Estimated Glomerular Filt Rate 58; Glucose Random 137 mg/dL (60-115); Lipase 10 U/L (8-78); Potassium 3.7 mmol/L (3.3-5.1); Sodium 137 mmol/L (135-145); Total Protein 6.9 g/dL (6.5-8.0)
--- NOTE | 2022-11-01 20:00 | MHC.EDTECH ---
2000 rounding done vitals sign taken ,pt was assisted unto bedpan ,voided small amount of urine ,urine sample collected and send to lab ,ekg taken and read by provider .
[2022-11-01 20:07] LABS: Troponin-I High Sensitivity 6.8 ng/L (<3.5-17.0)
--- NOTE | 2022-11-01 20:13 | ED_ITS ---
HPI - General Adult General Chief complaint: Dizziness Stated complaint: COUGH,DIZZY,CONFUSION PER EMS Time Seen by Provider: 11/01/22 19:24 Source: patient, family (Daughter) and EMS Mode of arrival: EMS Limitations: no limitations History of Present Illness HPI narrative: 62-year-old female came in by ambulance for evaluation of fever, coughing, urinary symptoms, change mental status. Coughing for the past 2 days with clear sputum, subjective fever and chills, patient also been having frequency urination with no dysuria, daughter noted that patient is slightly disoriented and confused sometimes. When patient arrived she met criteria for SIRS. Related Data Home Medications Medication Instructions Recorded Confirmed trospium 60 mg capsule,extended 60 mg PO DAILY 01/23/22 11/01/22 release 24 hr cholecalciferol (vitamin D3) 1,250 1,250 mcg PO SALAZAR 11/01/22 11/01/22 mcg (50,000 unit) capsule metformin 500 mg tablet 500 mg PO DAILY 11/01/22 11/01/22 Previous Rx's Medication Instructions Recorded atorvastatin 40 mg tablet 40 mg PO DAILY #30 caps 05/12/22 fluoxetine 20 mg capsule 40 mg PO DAILY #60 caps 07/10/22 trazodone 100 mg tablet 100 mg PO BEDTIME #30 caps 08/11/22 omeprazole 40 mg capsule,delayed 40 mg PO BID #60 caps 09/07/22 release Allergies Allergy/AdvReac Type Severity Reaction Status Date / Time Iodinated Contrast Media AdvReac Intermediate Rash Verified 10/06/22 04:03 [IV CONTRAST] Review of Systems Review of Systems: All other systems are reviewed and are negative Constitutional: Reports as per HPI and Reports no additional constitutional complaints Eyes: Reports as per HPI and Reports no additional eye complaints Reports system reviewed and no additional complaints, except as documented Cardiovascular: Reports as per HPI and Reports no additional cardiovascular complaints Respiratory: Reports as per HPI and Reports no additional respiratory complaints Gastrointestinal: Reports as per HPI and Reports no additional gastrointestinal complaints Genitourinary: Reports no additional female genitourinary complaints Musculoskeletal: Reports no additional musculoskeletal complaints Skin/Breast: Reports system reviewed and no additional complaints, except as docu Psychiatric: Reports no additional psychiatric complaints Endocrine: Reports no additional endocrine complaints Hematologic/Lymphatic: Reports no additional hematologic/lymphatic complaints Allergic/Immunologic: Reports no additional allergic/immunologic complaints Reports system reviewed and no additional complaints, except as documented and Reports Abnormal speech present COUNTS INCLUDE 234 BEDS AT THE [facility] Past Medical History Medical History Arthritis of first metatarsophalangeal (MTP) joint of left foot Calcaneal spur of left foot COPD (chronic obstructive pulmonary disease) COVID-19 vaccine series completed Depression, major, recurrent, in complete remission Deviated nasal septum Diabetes mellitus with microalbuminuria, without long-term current use of insulin Dyslipidemia Essential hypertension GERD (gastroesophageal reflux disease) Herpes zoster History of COVID-19 History of pulmonary embolism History of thyroid cancer Left shoulder tendinitis Vitamin B12 deficiency Vitamin D deficiency Surgical History H/O spinal fusion History of cervical spinal surgery History of colonoscopy History of partial thyroidectomy History of shoulder surgery History of surgery History of tubal ligation Hx of left breast biopsy Family History Family History Father Alcoholism Mother HTN (hypertension) Hyperlipidemia CVD (cardiovascular disease) Sister Hyperlipidemia Alcoholism Substance use disorder Brother No problems noted. Sister No problems noted. Sister No problems noted. Sister No problems noted. Daughter No problems noted. Daughter No problems noted. Social History Social History Housing: Apartment Alcohol intake: never Patient Tobacco Use Status: Former Tobacco user Quit Date: 20 yrs ago Years Smoked: 4 yrs Smoked in Last 30 Days: No e-Cigarette/Vaping Use: Never Used Second Hand Smoke Exposure: No Use of substances other than those prescribed or required for medical reasons: No Advance Directives: No Advance Directives Information Provided: Yes Patient : No service: No Current occupational status: disabled Cognitive needs: No Hearing needs: No Vision needs: Yes Physical Exam ED Vital Signs: Vital Signs - 24 hr 11/01/22 19:13 11/01/22 19:45 11/01/22 20:00 Temperature 102.6 F H 98.9 F Pulse Rate 104 H 108 H 92 Respiratory Rate 16 26 H 20 Blood Pressure 146/74 H 130/70 135/72 Pulse Oximetry 95 96 98 Oxygen Delivery Method Room Air Room Air Room Air 11/01/22 20:45 Temperature 98.7 F Pulse Rate 85 Respiratory Rate 17 Blood Pressure 142/60 H Pulse Oximetry 96 Oxygen Delivery Method Room Air BMI result Body Mass Index 36.7 Vital signs have been reviewed as appeared to be correct. Blood pressure normal. Heart rate elevated. Respiration rate normal. Febrile. Oxygen saturation normal. Appearance: Alert. Oriented X3. No acute distress. Head: Normal external exam. Normocephalic. Atraumatic. No Connell signs noted. No raccoon eyes noted Eyes: PERRLA. EOMI. Conjunctiva and sclera normal. Eyelids normal. ENT: TM's Normal. Pharynx normal. Uvula midline. Moist mucous membranes. No trismus noted. No drooling noted. No muffled voice noted. Neck: Normal inspection. Neck supple. FROM. No adenopathy. Thyroid Normal. No meningeal signs. No neck mass noted. CVS: Normal heart rate and rhythm. Heart sound normal. No murmurs noted. Pulses normal throughout. Respiratory: No respiratory distress. Painless inspiration. Breath sounds normal. No wheezes/rales/rhonchi noted. Chest nontender. No accessory muscle usage noted or decreased air movement noted. Abdomen: Soft and nontender. Bowel sounds normal in all 4 quadrants. No distention noted. No organomegaly noted. No visible injury noted. Back: No CVA tenderness. Full range of motion noted. Skin: Skin warm and dry. Normal skin color. Normal skin turgor. No rashes/lesions/lacerations noted. Extremities: No lower extremity edema. Extremities exhibit normal range of motion. Extremities nontender. Neuro: Oriented X 3. Cranial nerve exam: II-XII are grossly intact No motor deficit. No sensory deficit. Reflexes normal. Course Course Course Narrative: 62-year-old female brought in by her daughter being disoriented and slightly confused, patient met criteria for SIRS. 1. Left lower lobe pneumonia likely community acquired pneumonia will be covered with ceftriaxone and Zithromax. 2. Foul smell urine patient met criteria for SIRS, UTI will cover with ceftriaxone. 3. Continue with IV hydration and admit for change mental status. Medications Administered Generic Name Dose Route Start Last Admin Trade Name Freq PRN Reason Stop Dose Admin Azithromycin 500 mg/ Sodium 250 mls @ 125 mls/hr 11/01/22 21:12 11/01/22 21:22 Chloride IV 11/01/22 23:11 125 mls/hr ONCE ONE Administration Discontinued Medications Generic Name Dose Route Start Last Admin Trade Name Arvind PRN Reason Stop Dose Admin Acetaminophen 650 mg 11/01/22 19:24 11/01/22 19:44 Acetaminophen 325 Mg Tablet PO 11/01/22 19:25 650 mg ONCE ONE Administration Sodium Chloride 2,733 mls @ 2,733 mls/hr 11/01/22 19:24 11/01/22 20:50 Ns 30 ml/kg infuse over 1 hr (2733 ml) 11/01/22 20:23 Infused IV Infusion .Q1H STA Ceftriaxone Sodium 1 gm/ 50 mls @ 100 mls/hr 11/01/22 19:24 11/01/22 20:30 Sodium Chloride IV 11/01/22 19:53 Infused ONCE ONE Infusion Medical Decision Making Differential Diagnosis Differential Diagnoses: The differential diagnosis associated with the presentation includes (UTI, pneumonia, severe sepsis, septic shock) Admission/Observation Consideration of admission/observation: Escalation of care including admission/observation considered Consult Healthcare Provider Management of the patient was discussed with: Hospitalist Lab Data MDM Lab Attestation statement: I reviewed the patient's lab results. 11/01/22 19:37 11/01/22 19:37 Labs: Lab Results 11/01/22 11/01/22 11/01/22 Range/Units 19:36 19:37 19:37 WBC 5.1 (4.8-10.8) X10*3/uL RBC 4.37 (4.20-5.50) X10*6/uL Hgb 12.1 (12.0-16.0) g/dl Hct 36.8 L (37.0-47.0) % MCV 84.2 (80.0-98.0) fL MCH 27.7 (27.0-33.0) pg MCHC 32.9 (31.0-35.0) g/dl RDW 13.8 (11.0-16.0) % Plt Count 209 (160-400) X10*3/uL MPV 9.7 (9.4-12.3) fL Immature Gran % (Auto) 0.4 (0.0-0.4) % Neut % (Auto) 72.3 (45-73) % Lymph % (Auto) 15.0 L (20-40) % [place] % (Auto) 11.7 H (2-11) % Eos % (Auto) 0.4 (0-4) % Baso % (Auto) 0.2 (0-2) % Lymph # (Auto) 0.8 L (1.2-4.9) X10*3/uL [place] # (Auto) 0.6 (0.1-1.2) X10*3/uL Eos # (Auto) 0.0 (0.0-0.4) X10*3/uL Baso # (Auto) 0.0 (0.0-0.2) X10*3/uL Abs Immat Gran (auto) 0.02 (0.00-0.03) X10*3/uL Absolute Neuts (auto) 3.7 (2.0-8.3) x10*3/uL Absolute Nucleated RBC 0.000 (0.0-0.012) X10*3/uL Nucleated RBC % (auto) 0.0 (0.0-0.2) /100WBC Sodium 137 (135-145) mmol/L Potassium 3.7 (3.3-5.1) mmol/L Chloride 104 (96-108) mmol/L Carbon Dioxide 24 (22-29) mmol/L Anion Gap 13 (12-20) BUN 11 (9-16) mg/dL Creatinine 0.97 (0.5-1.4) mg/dL Estim Creat Clear Calc 63.9 Estimated GFR 58 Random Glucose 137 H (60-115) mg/dL Lactic Acid (0.5-2.0) mmol/L Calcium 8.8 (8.4-10.2) mg/dL Total Bilirubin 1.0 (0.0-1.0) mg/dL Direct Bilirubin 0.2 (0.0-0.5) mg/dL AST 21 (5-31) U/L ALT 23 (0-31) U/L Alkaline Phosphatase 87 (39-117) U/L Troponin I High Sens (<3.5-17.0) ng/L B-Natriuretic Peptide 27 (<100) pg/mL Total Protein 6.9 (6.5-8.0) g/dL Albumin 3.9 (3.5-5.0) g/dL Lipase 10 (8-78) U/L Urine Color Urine Appearance Urine pH (5.0-9.0) Ur Specific [place] (1.005-1.025) Urine Protein (Neg-Trace) mg/dL Urine Glucose (UA) (Negative) mg/dL Urine Ketones (Negative) mg/dL Urine Blood (Negative) Urine Nitrite (Negative) Ur Leukocyte Esterase (Negative) Urine RBC (0-2) /HPF Urine WBC (0-5) /HPF Ur Squamous Epith Cells (0-2) /HPF Urine Bacteria (None Seen) Hyaline Casts (0-2) /LPF Influenza Type A (PCR) (Negative) Influenza Type B (PCR) (Negative) RSV RNA Qual (PCR) (Negative) SARS-CoV-2 RNA (RT-PCR) (Negative) 11/01/22 11/01/22 11/01/22 Range/Units 19:37 19:37 19:38 WBC (4.8-10.8) X10*3/uL RBC (4.20-5.50) X10*6/uL Hgb (12.0-16.0) g/dl Hct (37.0-47.0) % MCV (80.0-98.0) fL MCH (27.0-33.0) pg MCHC (31.0-35.0) g/dl RDW (11.0-16.0) % Plt Count (160-400) X10*3/uL MPV (9.4-12.3) fL Immature Gran % (Auto) (0.0-0.4) % Neut % (Auto) (45-73) % Lymph % (Auto) (20-40) % [place] % (Auto) (2-11) % Eos % (Auto) (0-4) % Baso % (Auto) (0-2) % Lymph # (Auto) (1.2-4.9) X10*3/uL [place] # (Auto) (0.1-1.2) X10*3/uL Eos # (Auto) (0.0-0.4) X10*3/uL Baso # (Auto) (0.0-0.2) X10*3/uL Abs Immat Gran (auto) (0.00-0.03) X10*3/uL Absolute Neuts (auto) (2.0-8.3) x10*3/uL Absolute Nucleated RBC (0.0-0.012) X10*3/uL Nucleated RBC % (auto) (0.0-0.2) /100WBC Sodium (135-145) mmol/L Potassium (3.3-5.1) mmol/L Chloride (96-108) mmol/L Carbon Dioxide (22-29) mmol/L Anion Gap (12-20) BUN (9-16) mg/dL Creatinine (0.5-1.4) mg/dL Estim Creat Clear Calc Estimated GFR Random Glucose (60-115) mg/dL Lactic Acid 1.1 (0.5-2.0) mmol/L Calcium (8.4-10.2) mg/dL Total Bilirubin (0.0-1.0) mg/dL Direct Bilirubin (0.0-0.5) mg/dL AST (5-31) U/L ALT (0-31) U/L Alkaline Phosphatase (39-117) U/L Troponin I High Sens 6.8 (<3.5-17.0) ng/L B-Natriuretic Peptide (<100) pg/mL Total Protein (6.5-8.0) g/dL Albumin (3.5-5.0) g/dL Lipase (8-78) U/L Urine Color Urine Appearance Urine pH (5.0-9.0) Ur Specific [place] (1.005-1.025) Urine Protein (Neg-Trace) mg/dL Urine Glucose (UA) (Negative) mg/dL Urine Ketones (Negative) mg/dL Urine Blood (Negative) Urine Nitrite (Negative) Ur Leukocyte Esterase (Negative) Urine RBC (0-2) /HPF Urine WBC (0-5) /HPF Ur Squamous Epith Cells (0-2) /HPF Urine Bacteria (None Seen) Hyaline Casts (0-2) /LPF Influenza Type A (PCR) NEGATIVE (Negative) Influenza Type B (PCR) NEGATIVE (Negative) RSV RNA Qual (PCR) NEGATIVE (Negative) SARS-CoV-2 RNA (RT-PCR) NEGATIVE (Negative) 11/01/22 Range/Units 20:36 WBC (4.8-10.8) X10*3/uL RBC (4.20-5.50) X10*6/uL Hgb (12.0-16.0) g/dl Hct (37.0-47.0) % MCV (80.0-98.0) fL MCH (27.0-33.0) pg MCHC (31.0-35.0) g/dl RDW (11.0-16.0) % Plt Count (160-400) X10*3/uL MPV (9.4-12.3) fL Immature Gran % (Auto) (0.0-0.4) % Neut % (Auto) (45-73) % Lymph % (Auto) (20-40) % [place] % (Auto) (2-11) % Eos % (Auto) (0-4) % Baso % (Auto) (0-2) % Lymph # (Auto) (1.2-4.9) X10*3/uL [place] # (Auto) (0.1-1.2) X10*3/uL Eos # (Auto) (0.0-0.4) X10*3/uL Baso # (Auto) (0.0-0.2) X10*3/uL Abs Immat Gran (auto) (0.00-0.03) X10*3/uL Absolute Neuts (auto) (2.0-8.3) x10*3/uL Absolute Nucleated RBC (0.0-0.012) X10*3/uL Nucleated RBC % (auto) (0.0-0.2) /100WBC Sodium (135-145) mmol/L Potassium (3.3-5.1) mmol/L Chloride (96-108) mmol/L Carbon Dioxide (22-29) mmol/L Anion Gap (12-20) BUN (9-16) mg/dL Creatinine (0.5-1.4) mg/dL Estim Creat Clear Calc Estimated GFR Random Glucose (60-115) mg/dL Lactic Acid (0.5-2.0) mmol/L Calcium (8.4-10.2) mg/dL Total Bilirubin (0.0-1.0) mg/dL Direct Bilirubin (0.0-0.5) mg/dL AST (5-31) U/L ALT (0-31) U/L Alkaline Phosphatase (39-117) U/L Troponin I High Sens (<3.5-17.0) ng/L B-Natriuretic Peptide (<100) pg/mL Total Protein (6.5-8.0) g/dL Albumin (3.5-5.0) g/dL Lipase (8-78) U/L Urine Color Yellow Urine Appearance Cloudy Urine pH 5.5 (5.0-9.0) Ur Specific [place] 1.015 (1.005-1.025) Urine Protein Trace (Neg-Trace) mg/dL Urine Glucose (UA) Negative (Negative) mg/dL Urine Ketones Negative (Negative) mg/dL Urine Blood Moderate (2+) H (Negative) Urine Nitrite Positive H (Negative) Ur Leukocyte Esterase Small (1+) H (Negative) Urine RBC 6-10 H (0-2) /HPF Urine WBC 11-20 H (0-5) /HPF Ur Squamous Epith Cells >20 (0-2) /HPF Urine Bacteria 4+ (None Seen) Hyaline Casts 0-2 (0-2) /LPF Influenza Type A (PCR) (Negative) Influenza Type B (PCR) (Negative) RSV RNA Qual (PCR) (Negative) SARS-CoV-2 RNA (RT-PCR) (Negative) Independent Interpretation I performed an independent interpretation of an: EKG (Normal sinus rhythm at 94 beats per minutes, normal intervals, nonspecific T-wave flattening and inversion.) and Plain X-Ray (Left lower lobe pneumonia.) Radiology Impression Discussion of test interpretation with radiology: I have reviewed the radiologist's reading. Chronic Conditions Patient?s care impacted by: Diabetes Discharge Plan Discharge Clinical Impression: Community acquired pneumonia, UTI (urinary tract infection) Patient Disposition: Admitted As Inpatient Prescriptions: No Action atorvastatin 40 mg tablet 40 mg PO DAILY Qty: 30 5RF fluoxetine 20 mg capsule 40 mg PO DAILY Qty: 60 5RF trazodone 100 mg tablet 100 mg PO BEDTIME Qty: 30 3RF omeprazole 40 mg capsule,delayed release(DR/EC) 40 mg PO BID Qty: 60 3RF metformin 500 mg tablet 500 mg PO DAILY cholecalciferol (vitamin D3) 1,250 mcg (50,000 unit) capsule 1,250 mcg PO SALAZAR trospium 60 mg capsule,extended release 24hr 60 mg PO DAILY
[2022-11-01 20:26] LABS: Influenza A PCR NEGATIVE (Negative); Influenza B PCR NEGATIVE (Negative); Resp Syncy Virus RNA Qual PCR NEGATIVE (Negative); SARS COV2 PCR INHOUSE NEGATIVE (Negative)
[2022-11-01 20:27] LABS: B Type Natriuretic Peptide 27 pg/mL (<100)
[2022-11-01 20:45] VITALS: BP 142/60; PULSE 85; RESP 17; TEMP 37.1; O2SAT 96
[2022-11-01 20:46] LABS: Appearance Urine Cloudy; Color Urine Yellow; Glucose Urine UA Negative (Negative); Leukocyte Esterase Urine Small (1+) (Negative); Nitrite Urine Positive (Negative); PH 5.5 (5.0-9.0); Specific Gravity - Urine 1.015 (1.005-1.025); UMIC TRIGGER UACC YES; Urine Blood Moderate (2+) (Negative); Urine Ketones Negative (Negative); Urine Protein Trace mg/dL (Neg-Trace)
[2022-11-01] MEDS: Azithromycin 500 MG in 0.9 % Sodium Chloride 250 ML 125 MG IV (21:22)
--- NOTE | 2022-11-01 21:33 | PC.NURSE ---
Pt's BP is stable, pt is a-fib on the monitor. Pt abx was given and BP was taken following protocol. 2 bags of IVF were given.
[2022-11-01 21:46] LABS: Bacteria Urine 4+ (None Seen); Hyaline Casts Urine 0-2 /LPF (0-2); Squamous Epithelial Cell Urine >20 /HPF (0-2); UACC Culture Trigger YES
[2022-11-01 22:00] VITALS: BP 121/56; PULSE 87; RESP 16; TEMP 36.9; O2SAT 97
--- NOTE | 2022-11-01 22:00 | MHC.EDTECH ---
2200 rounding done ,vitals sign taken ,pt use bed side commode ,voided lg amount of urine ,back to bed ,patient said she was hungry ,i ask provider if pt could eat ,and provider said yes ,pt had a turkey sandwich and a can of alphonso tori
--- NOTE | 2022-11-01 22:11 | PM.IMHP ---
History of Present Illness Date of Service: 11/01/22 Chief Complaint: confusion 62-year-old female with past medical history of dyslipidemia, diabetes, HTN, vitamin-D deficiency, depression, history of pulmonary emboli, history of thyroid cancer Status post partial thyroidectomy presents to the hospital with complaints of increased confusion per her daughter. patient is alert, oriented to self and place, able to give history appropriately. States that her daughter noticed her to be more confused, patient reports that she has also noticed herself to be more confused, fatigue, lethargic, short of breath,has had a cough for the past few days, productive, feeling febrile, chills. Patient denies having any urinary symptoms. Reports no weakness numbness or tingling, no chest pain, no abdominal pain, no lower extremity edema. On arrival to the ED patient hemodynamically stable with a temperature of 102.6 degrees, heart rate of 104 Satting 95% on room air labs are significant for WBC count of 4.1, hemoglobin of 11, medical 33.3, urine positive for nitrites, leukocyte Estrace and WBC Chest x-ray shows left lower lobe pneumonia Review of Systems Review of Systems: Yes all other systems are reviewed and are negative FOR[facility], [facility] Medical History Arthritis of first metatarsophalangeal (MTP) joint of left foot Calcaneal spur of left foot COPD (chronic obstructive pulmonary disease) COVID-19 vaccine series completed Depression, major, recurrent, in complete remission Deviated nasal septum Diabetes mellitus with microalbuminuria, without long-term current use of insulin Dyslipidemia Essential hypertension GERD (gastroesophageal reflux disease) Herpes zoster History of COVID-19 History of pulmonary embolism History of thyroid cancer Left shoulder tendinitis Vitamin B12 deficiency Vitamin D deficiency Family History Father Alcoholism Mother HTN (hypertension) Hyperlipidemia CVD (cardiovascular disease) Sister Hyperlipidemia Alcoholism Substance use disorder Brother No problems noted. Sister No problems noted. Sister No problems noted. Sister No problems noted. Daughter No problems noted. Daughter No problems noted. Surgical History H/O spinal fusion History of cervical spinal surgery History of colonoscopy History of partial thyroidectomy History of shoulder surgery History of surgery History of tubal ligation Hx of left breast biopsy Social History Housing: Apartment Alcohol intake: never Patient Tobacco Use Status: Former Tobacco user Quit Date: 20 yrs ago Years Smoked: 4 yrs Smoked in Last 30 Days: No e-Cigarette/Vaping Use: Never Used Second Hand Smoke Exposure: No Use of substances other than those prescribed or required for medical reasons: No Advance Directives: No Advance Directives Information Provided: Yes Patient : No service: No Current occupational status: disabled Cognitive needs: No Hearing needs: No Vision needs: Yes Meds Allergies Allergy/AdvReac Type Severity Reaction Status Date / Time Iodinated Contrast Media AdvReac Intermediate Rash Verified 10/06/22 04:03 [IV CONTRAST] Active Medications: Current Medications Azithromycin 500 mg/ Sodium (Chloride) 250 mls @ 125 mls/hr IV ONCE ONE Stop: 11/01/22 23:11 Last Admin: 11/01/22 21:22 Dose: 125 mls/hr Pharmacy Consult (Consult Rx Perform Med Rec) 1 each MISCELLANE ONCE PRN PRN Reason: Consult order Home Medications Medication Instructions Recorded Confirmed Last Taken Type trospium 60 mg capsule,extended 60 mg PO DAILY 01/23/22 11/01/22 Unknown History release 24 hr cholecalciferol (vitamin D3) 1,250 1,250 mcg PO SALAZAR 11/01/22 11/01/22 Unknown History mcg (50,000 unit) capsule metformin 500 mg tablet 500 mg PO DAILY 11/01/22 11/01/22 Unknown History Physical Exam Vital Signs and Narrative: Vital Signs: Last Vital Signs Temp 98.7 F 11/01/22 20:45 Pulse 85 11/01/22 20:45 Resp 17 11/01/22 20:45 BP 142/60 H 11/01/22 20:45 Pulse Ox 96 11/01/22 20:45 O2 Del Method 11/01/22 20:45 BMI result Body Mass Index 36.7 Const: General: cooperative and no acute distress Orientation/consciousness: patient oriented x3 Eyes: General: appearance normal, both eyes and all related structures Resp: Other: left lung crackles in the bases Effort & Inspection: normal respiratory effort Cardio: Rate: regular rate Rhythm: regular rhythm GI: Palpation (GI): Soft to palpation Auscultation: normal bowel sounds Skin: General skin exam: no rashes or lesions noted Neuro: General: patient oriented x3 Cognition (Neuro): normal cognition Extrem: General: Yes normal to inspection and Yes no pedal edema Results Labs 11/01/22 19:37 11/01/22 19:37 Labs: Laboratory Results - last 24 hr 11/01/22 11/01/22 11/01/22 19:36 19:37 19:37 MCV 84.2 MCH 27.7 MCHC 32.9 RDW 13.8 Plt Count 209 MPV 9.7 Immature Gran % (Auto) 0.4 Neut % (Auto) 72.3 Lymph % (Auto) 15.[address] [place] % (Auto) 11.7 H Eos % (Auto) 0.4 Baso % (Auto) 0.2 Lymph # (Auto) 0.[address] [place] # (Auto) 0.6 Eos # (Auto) 0.0 Baso # (Auto) 0.0 Abs Immat Gran (auto) 0.02 Absolute Neuts (auto) 3.7 Absolute Nucleated RBC 0.000 Nucleated RBC % (auto) 0.0 Anion Gap 13 Estim Creat Clear Calc 63.9 Estimated GFR 58 Random Glucose 137 H Lactic Acid Calcium 8.8 Total Bilirubin 1.0 Direct Bilirubin 0.2 AST 21 ALT 23 Alkaline Phosphatase 87 Troponin I High Sens B-Natriuretic Peptide 27 Total Protein 6.9 Albumin 3.9 Lipase 10 Urine Color Urine Appearance Urine pH Ur Specific [place] Urine Protein Urine Glucose (UA) Urine Ketones Urine Blood Urine Nitrite Ur Leukocyte Esterase Urine RBC Urine WBC Ur Squamous Epith Cells Urine Bacteria Hyaline Casts Influenza Type A (PCR) Influenza Type B (PCR) RSV RNA Qual (PCR) SARS-CoV-2 RNA (RT-PCR) 11/01/22 11/01/22 11/01/22 19:37 19:37 19:38 MCV MCH MCHC RDW Plt Count MPV Immature Gran % (Auto) Neut % (Auto) Lymph % (Auto) [place] % (Auto) Eos % (Auto) Baso % (Auto) Lymph # (Auto) [place] # (Auto) Eos # (Auto) Baso # (Auto) Abs Immat Gran (auto) Absolute Neuts (auto) Absolute Nucleated RBC Nucleated RBC % (auto) Anion Gap Estim Creat Clear Calc Estimated GFR Random Glucose Lactic Acid 1.1 Calcium Total Bilirubin Direct Bilirubin AST ALT Alkaline Phosphatase Troponin I High Sens 6.8 B-Natriuretic Peptide Total Protein Albumin Lipase Urine Color Urine Appearance Urine pH Ur Specific [place] Urine Protein Urine Glucose (UA) Urine Ketones Urine Blood Urine Nitrite Ur Leukocyte Esterase Urine RBC Urine WBC Ur Squamous Epith Cells Urine Bacteria Hyaline Casts Influenza Type A (PCR) NEGATIVE Influenza Type B (PCR) NEGATIVE RSV RNA Qual (PCR) NEGATIVE SARS-CoV-2 RNA (RT-PCR) NEGATIVE 11/01/22 20:36 MCV MCH MCHC RDW Plt Count MPV Immature Gran % (Auto) Neut % (Auto) Lymph % (Auto) [place] % (Auto) Eos % (Auto) Baso % (Auto) Lymph # (Auto) [place] # (Auto) Eos # (Auto) Baso # (Auto) Abs Immat Gran (auto) Absolute Neuts (auto) Absolute Nucleated RBC Nucleated RBC % (auto) Anion Gap Estim Creat Clear Calc Estimated GFR Random Glucose Lactic Acid Calcium Total Bilirubin Direct Bilirubin AST ALT Alkaline Phosphatase Troponin I High Sens B-Natriuretic Peptide Total Protein Albumin Lipase Urine Color Yellow Urine Appearance Cloudy Urine pH 5.5 Ur Specific [place] 1.015 Urine Protein Trace Urine Glucose (UA) Negative Urine Ketones Negative Urine Blood Moderate (2+) H Urine Nitrite Positive H Ur Leukocyte Esterase Small (1+) H Urine RBC 6-10 H Urine WBC 11-20 H Ur Squamous Epith Cells >20 Urine Bacteria 4+ Hyaline Casts 0-2 Influenza Type A (PCR) Influenza Type B (PCR) RSV RNA Qual (PCR) SARS-CoV-2 RNA (RT-PCR) Imaging Radiologist's Impressions: Impressions Chest X-Ray 11/01/22 20:17 IMPRESSION: Left lower lobe pneumonia. Assessment and Plan (1) Sepsis: Qualifiers: Sepsis type: sepsis due to unspecified organism Sepsis acute organ dysfunction status: without acute organ dysfunction Qualified Code(s): A41.9 - Sepsis, unspecified organism Status: Acute (2) Community acquired pneumonia: Qualifiers: Laterality: left Lung location: lower lobe of lung Qualified Code(s): J18.9 - Pneumonia, unspecified organism Status: Acute (3) UTI (urinary tract infection): Qualifiers: Urinary tract infection type: acute cystitis Hematuria presence: without hematuria Qualified Code(s): N30.00 - Acute cystitis without hematuria Status: Acute (4) Acute metabolic encephalopathy: Status: Acute Plan 62-year-old female with past medical history as mentioned above presents to the hospital with complaints of confusion found to have pneumonia as well as UTI # acute sepsis - likely multifactorial secondary to pneumonia as well as acute UTI - has tachycardia, febrile, leukopenia - will treat with IV antibiotics - follow cultures # community-acquired pneumonia - has sepsis associated with pneumonia - no end-organ damage - will treat with IV antibiotics - follow cultures # UTI - asymptomatic - positive for nitrites and leukocyte Estrace - given reported confusion, as well as pneumonia patient will be on IV antibiotics - follow cultures # acute metabolic encephalopathy - likely secondary to acute infection - patient currently alert oriented x3 - monitor mental status # diabetes - hold metformin - will add low-dose sliding scale insulin # depression - continue fluoxetine DVT prophylaxis: Lovenox given patient's need for IV antibiotics in the setting of acute pneumonia, sepsis patient require minimal 2 night inpatient hospital stay for further management and monitoring Time Spent With Patient Time: Total time managing care of this patient today ____ minutes. Quality Stroke Does the patient have a stroke diagnosis?: No VTE Prior VTE?: No VTE Risk Level:: Medical - moderate - high VTE Device Contraindication: Treatment Not Indicated VTE Drug Contraindication: N/A - Med Ordered
--- NOTE | 2022-11-01 23:46 | PC.NURSE ---
Pt's EKG was obtain at 2341, a-fib with hypertrophy. Pt's is hypotensive and sinus tachy on the monitor. Radial puse wa staken it is irregular. Labs were taken and it came back elevated trop and BNP, provider has been notified. O2 was tristated to 2L bit now is back to 4L due to pt is o2 dropping to 90%.
[2022-11-02] VITALS (7 sets, daily range): BP systolic 127–163; BP diastolic 56–80; PULSE 69–85; RESP 13–21; TEMP 36.4–37; O2SAT 93–98; BMI 37.0
[2022-11-02] MEDS: Enoxaparin Sodium 40 MG/0.4 ML SYRINGE SUBCUT ×2 (00:16→22:09)
[2022-11-02] MEDS: Acetaminophen 325 MG TABLET 650 MG PO ×2 (00:20→12:48)
[2022-11-02 04:41] LABS: Basophils Percent Auto 0.2 % (0-2); Eosinophils Percent Auto 0.5 % (0-4); Hematocrit 33.3 % (37.0-47.0); Imm Gran Abs Auto 0.01 X10*3/uL (0.00-0.03); Imm Gran Pct Auto 0.2 % (0.0-0.4); Lymphocytes Absolute Auto 1.6 X10*3/uL (1.2-4.9); Lymphocytes Percent Auto 38.6 % (20-40); MANUAL DIFF FLAG NO; Mean Corpuscular Hemoglobin 28.1 pg (27.0-33.0); Mean Corpuscular Volume 85.2 fL (80.0-98.0); Mean Platelet Volume 9.6 fL (9.4-12.3); Monocytes Absolute Auto 0.6 X10*3/uL (0.1-1.2); Monocytes Percent Auto 14.7 % (2-11); Neutrophils Absolute Auto 1.9 x10*3/uL (2.0-8.3); Neutrophils Percent Auto 45.8 % (45-73); Platelet Count 192 X10*3/uL (160-400); Red Blood Count 3.91 X10*6/uL (4.20-5.50); Red Cell Distribution Width 14.1 % (11.0-16.0); White Blood Count 4.1 X10*3/uL (4.8-10.8)
[2022-11-02 05:03] LABS: Anion Gap 11 (12-20); Blood Urea Nitrogen 11 mg/dL (9-16); Carbon Dioxide 23 mmol/L (22-29); Chloride 110 mmol/L (96-108); Creatinine Clr Calc Pharmacy 70.5; Estimated Glomerular Filt Rate > 60; Glucose Random 125 mg/dL (60-115); Potassium 3.6 mmol/L (3.3-5.1); Sodium 140 mmol/L (135-145)
[2022-11-02 07:16] LABS: Glucose, Whole Blood 102 mg/dL (60-115)
[2022-11-02] MEDS: Omeprazole 40 MG CAPSULE.DR PO ×2 (08:43→16:10)
[2022-11-02] MEDS: Atorvastatin Calcium 40 MG TABLET PO (08:43)
[2022-11-02] MEDS: FLUoxetine HCl 20 MG CAPSULE 40 MG PO (08:44)
[2022-11-02] MEDS: 0.9 % Sodium Chloride Flush 3 ML SYRINGE IVFLUSH ×3 (08:45→23:58)
--- NOTE | 2022-11-02 10:15 | MHC.CM.ED ---
PATIENT LIVES WITH HCP/SPOUSE SHE REPORTS THAT HCP IS AT HOME BUT IS WILLING TO COMPLETE ONE OTHER HERE WHEN SHE ARRIVES ON UNIT (SPOUSE MAY BRING COPY IN) NO DME OR VNA SERVICES PATIENT DRIVES AND IS INDEPENDENT COVID VAX X 2. HOPES TO GO HOME WITH NO NEED FOR SERVICES. IMM 11/02 COPY PLACED IN MEDICAL RECORDS BIN OF EMERGENCY DEPT.
--- NOTE | 2022-11-02 10:42 | PHA.MEDREC ---
Pharmacy Consult ? Medication Reconciliation Pharmacy has completed the medication reconciliation. checked med rec done overnight
[2022-11-02 11:47] LABS: Glucose, Whole Blood 126 mg/dL (60-115)
--- NOTE | 2022-11-02 13:40 | P.PNIM_ITS ---
Subjective Subjective Date of Service: 11/02/22 Interval History: Feeling better awake alert confusion resolved complaining of persistent weakness, fatigue and shortness of breath, tolerated breakfast no nausea, no vomiting, no abdominal pain, no fever since admission. Review of Systems Review of Systems: Yes all other systems are reviewed and are negative Physical Exam Vital Signs: Vital Signs: Last Vital Signs Temp 97.6 F 11/02/22 11:38 Pulse 72 11/02/22 11:38 Resp 14 11/02/22 11:38 BP 163/77 H 11/02/22 11:38 Pulse Ox 96 11/02/22 11:38 O2 Del Method 11/02/22 11:38 O2 Flow Rate 2 11/02/22 07:35 BMI result Body Mass Index 37.0 Const: Other: General awake alert x3, no acute distress. Neck supple no JVD. CVS regular rate rhythm, Respiratory lungs coarse breath sound, no respiratory distress, no wheeze, no rhonchi. Gastrointestinal abdomen soft, nontender, bowel sounds audible, no guarding , no rigidity. Extremities no edema. Neuro nonfocal Skin no rash Psych appropriate affect Objective Data Active Medications Acetaminophen (Acetaminophen 325 Mg Tablet) 650 mg PO Q6H PRN PRN Reason: Pain, Mild (Pain Scale 1-3) Last Admin: 11/02/22 12:48 Dose: 650 mg Documented By: SERGE Atorvastatin Calcium (Atorvastatin Calcium 40 Mg Tablet) 40 mg PO DAILY [facility] Last Admin: 11/02/22 08:43 Dose: 40 mg Documented By: ALEYDA Azithromycin (Azithromycin 500 Mg Tablet) 500 mg PO Q24H [facility] Dextrose (Dextrose 50 % 25 Gm/50 Ml Syringe) 25 gm IVPUSH Q15M PRN; Protocol PRN Reason: per Hypoglycemia Standing Ord. Docusate Sodium (Docusate Sodium 100 Mg Capsule) 100 mg PO DAILY PRN PRN Reason: Constipation Enoxaparin Sodium (Enoxaparin Sodium 40 Mg/0.4 Ml Syringe) 40 mg SUBCUT Q24H [facility] Last Admin: 11/02/22 00:16 Dose: 40 mg Documented By: HARMONY Fluoxetine HCl (Fluoxetine Hcl 20 Mg Capsule) 40 mg PO DAILY [facility] Last Admin: 11/02/22 08:44 Dose: 40 mg Documented By: ALEYDA Glucose (Glucose Gel 15 Gm Gel..Gram.) 15 gm PO Q15M PRN; Protocol PRN Reason: per Hypoglycemia Standing Ord. Ceftriaxone Sodium 1 gm/ (Sodium Chloride) 50 mls @ 100 mls/hr IV Q24H [facility] Insulin Human Lispro (Insulin Lispro 100 Unit/Ml 3 Ml Vial) 0 unit SUBCUT QIDACHS [facility]; Protocol Last Admin: 11/02/22 11:58 Dose: Not Given Documented By: KOURTNEY Non-Admin Reason: No Insulin Coverage Non-Formulary Medication (Cholecalciferol (Vitamin D3)) 1,250 mcg PO SALAZAR [facility] Non-Formulary Medication (Trospium) 60 mg PO DAILY [facility] Omeprazole (Omeprazole 40 Mg Capsule.Dr) 40 mg PO BID@0630,1630 [facility] Last Admin: 11/02/22 08:43 Dose: 40 mg Documented By: ALEYDA Ondansetron HCl (Ondansetron Hcl 4 Mg/2 Ml Vial) 4 mg IVPUSH Q8H PRN PRN Reason: Nausea and Vomiting Pharmacy Consult (Consult Rx Perform Med Rec) 1 each MISCELLANE ONCE PRN PRN Reason: Consult order Sodium Chloride (0.9 % Sodium Chloride Flush 3 Ml Syringe) 3 ml IVFLUSH QSHIFT [facility] Last Admin: 11/02/22 08:45 Dose: 3 ml Documented By: ALEYDA Trazodone HCl (Trazodone Hcl 100 Mg Tablet) 100 mg PO BEDTIME [facility] Labs 11/02/22 04:33 11/02/22 04:33 Labs: Laboratory Results - last 24 hr 11/01/22 11/01/22 11/01/22 19:36 19:37 19:37 MCV 84.2 MCH 27.7 MCHC 32.9 RDW 13.8 Plt Count 209 MPV 9.7 Immature Gran % (Auto) 0.4 Neut % (Auto) 72.3 Lymph % (Auto) 15.0 L [place] % (Auto) 11.7 H Eos % (Auto) 0.4 Baso % (Auto) 0.2 Lymph # (Auto) 0.8 L [place] # (Auto) 0.6 Eos # (Auto) 0.0 Baso # (Auto) 0.0 Abs Immat Gran (auto) 0.02 Absolute Neuts (auto) 3.7 Absolute Nucleated RBC 0.000 Nucleated RBC % (auto) 0.0 Anion Gap 13 Estim Creat Clear Calc 63.9 Estimated GFR 58 POC Glucose Random Glucose 137 H Lactic Acid Calcium 8.8 Total Bilirubin 1.0 Direct Bilirubin 0.2 AST 21 ALT 23 Alkaline Phosphatase 87 Troponin I High Sens B-Natriuretic Peptide 27 Total Protein 6.9 Albumin 3.9 Lipase 10 Urine Color Urine Appearance Urine pH Ur Specific [place] Urine Protein Urine Glucose (UA) Urine Ketones Urine Blood Urine Nitrite Ur Leukocyte Esterase Urine RBC Urine WBC Ur Squamous Epith Cells Urine Bacteria Hyaline Casts Influenza Type A (PCR) Influenza Type B (PCR) RSV RNA Qual (PCR) SARS-CoV-2 RNA (RT-PCR) 11/01/22 11/01/22 11/01/22 19:37 19:37 19:38 MCV MCH MCHC RDW Plt Count MPV Immature Gran % (Auto) Neut % (Auto) Lymph % (Auto) [place] % (Auto) Eos % (Auto) Baso % (Auto) Lymph # (Auto) [place] # (Auto) Eos # (Auto) Baso # (Auto) Abs Immat Gran (auto) Absolute Neuts (auto) Absolute Nucleated RBC Nucleated RBC % (auto) Anion Gap Estim Creat Clear Calc Estimated GFR POC Glucose Random Glucose Lactic Acid 1.1 Calcium Total Bilirubin Direct Bilirubin AST ALT Alkaline Phosphatase Troponin I High Sens 6.8 B-Natriuretic Peptide Total Protein Albumin Lipase Urine Color Urine Appearance Urine pH Ur Specific [place] Urine Protein Urine Glucose (UA) Urine Ketones Urine Blood Urine Nitrite Ur Leukocyte Esterase Urine RBC Urine WBC Ur Squamous Epith Cells Urine Bacteria Hyaline Casts Influenza Type A (PCR) NEGATIVE Influenza Type B (PCR) NEGATIVE RSV RNA Qual (PCR) NEGATIVE SARS-CoV-2 RNA (RT-PCR) NEGATIVE 11/01/22 11/02/22 11/02/22 20:36 04:33 04:33 MCV 85.2 MCH 28.1 MCHC 33.0 RDW 14.1 Plt Count 192 MPV 9.6 Immature Gran % (Auto) 0.2 Neut % (Auto) 45.8 Lymph % (Auto) 38.6 [place] % (Auto) 14.7 H Eos % (Auto) 0.5 Baso % (Auto) 0.2 Lymph # (Auto) 1.6 [place] # (Auto) 0.6 Eos # (Auto) 0.0 Baso # (Auto) 0.0 Abs Immat Gran (auto) 0.01 Absolute Neuts (auto) 1.9 L Absolute Nucleated RBC 0.000 Nucleated RBC % (auto) 0.0 Anion Gap 11 L Estim Creat Clear Calc 70.5 Estimated GFR > 60 POC Glucose Random Glucose 125 H Lactic Acid Calcium 8.0 L D Total Bilirubin Direct Bilirubin AST ALT Alkaline Phosphatase Troponin I High Sens B-Natriuretic Peptide Total Protein Albumin Lipase Urine Color Yellow Urine Appearance Cloudy Urine pH 5.5 Ur Specific [place] 1.015 Urine Protein Trace Urine Glucose (UA) Negative Urine Ketones Negative Urine Blood Moderate (2+) H Urine Nitrite Positive H Ur Leukocyte Esterase Small (1+) H Urine RBC 6-10 H Urine WBC 11-20 H Ur Squamous Epith Cells >20 Urine Bacteria 4+ Hyaline Casts 0-2 Influenza Type A (PCR) Influenza Type B (PCR) RSV RNA Qual (PCR) SARS-CoV-2 RNA (RT-PCR) 11/02/22 11/02/22 07:13 11:35 MCV MCH MCHC RDW Plt Count MPV Immature Gran % (Auto) Neut % (Auto) Lymph % (Auto) [place] % (Auto) Eos % (Auto) Baso % (Auto) Lymph # (Auto) [place] # (Auto) Eos # (Auto) Baso # (Auto) Abs Immat Gran (auto) Absolute Neuts (auto) Absolute Nucleated RBC Nucleated RBC % (auto) Anion Gap Estim Creat Clear Calc Estimated GFR POC Glucose 102 126 H Random Glucose Lactic Acid Calcium Total Bilirubin Direct Bilirubin AST ALT Alkaline Phosphatase Troponin I High Sens B-Natriuretic Peptide Total Protein Albumin Lipase Urine Color Urine Appearance Urine pH Ur Specific [place] Urine Protein Urine Glucose (UA) Urine Ketones Urine Blood Urine Nitrite Ur Leukocyte Esterase Urine RBC Urine WBC Ur Squamous Epith Cells Urine Bacteria Hyaline Casts Influenza Type A (PCR) Influenza Type B (PCR) RSV RNA Qual (PCR) SARS-CoV-2 RNA (RT-PCR) Microbiology Microbiology Results: Microbiology 11/01/22 22:30 Urine Culture - Preliminary Urine clean catch - Urine pelaez top Assessment and Plan (1) Acute metabolic encephalopathy: Status: Acute (2) Sepsis: Status: Acute (3) Community acquired pneumonia: Status: Acute (4) UTI (urinary tract infection): Status: Acute Plan 62-year-old female with past medical history as mentioned above presents to the hospital with complaints of? confusion found to have pneumonia as well as UTI #? acute sepsis? likely multifactorial secondary to community-acquired pneumonia and UTI -? has tachycardia, febrile, leukopenia, no end-organ damage, negative influenza, RSV and COVID Continue IV ceftriaxone and azithromycin day 1 Follow urine and blood cultures Mild leukopenia and normocytic anemia will recheck CBC # acute metabolic encephalopathy Resolved was likely secondary to acute infection # diabetes type 2 is stable blood sugars -? hold metformin, continue sliding scale insulin, follow point of care # hyperlipidemia continue statins #? depression -? continue fluoxetine and trazodone ?DVT prophylaxis:? Lovenox ?Patient need continued inpatient hospitalization for treatment of acute pneumonia, sepsis and UTI requiring IV antibiotics. Time Spent With Patient Time: Total time managing care of this patient today ____ minutes. Quality Stroke Does the patient have a stroke diagnosis?: No VTE Prior VTE?: No VTE Risk Level:: Medical - moderate - high VTE Device Contraindication: Treatment Not Indicated VTE Drug Contraindication: N/A - Med Ordered
--- NOTE | 2022-11-02 15:26 | MHC.CM.PN ---
met with pt hcp completeed and put on chart
[2022-11-02 17:06] LABS: Glucose, Whole Blood 110 mg/dL (60-115)
[2022-11-02 20:02] LABS: Glucose, Whole Blood 173 mg/dL (60-115)
[2022-11-02] MEDS: Insulin Lispro 100 UNIT/ML 3 ML VIAL SUBCUT (20:26)
[2022-11-02] MEDS: Azithromycin 500 MG TABLET PO (20:26)
[2022-11-02] MEDS: cefTRIAXone sodium 1 GM in 0.9 % Sodium Chloride 50 ML IV (20:27)
[2022-11-02] MEDS: traZODone HCL 100 MG TABLET PO (21:16)
[2022-11-03] VITALS (9 sets, daily range): BP systolic 129–166; BP diastolic 60–89; PULSE 82–102; RESP 14–18; TEMP 36.6–37.7; O2SAT 93–96
[2022-11-03] MEDS: Acetaminophen 325 MG TABLET 650 MG PO ×2 (02:00→11:31)
[2022-11-03] MEDS: Omeprazole 40 MG CAPSULE.DR PO ×2 (06:11→16:53)
[2022-11-03 07:20] LABS: Glucose, Whole Blood 136 mg/dL (60-115)
[2022-11-03 07:31] LABS: Hematocrit 36.6 % (37.0-47.0); Hemoglobin 12.1 g/dl (12.0-16.0); Mean Corpuscular HGB Conc 33.1 g/dl (31.0-35.0); Mean Corpuscular Hemoglobin 28.4 pg (27.0-33.0); Mean Corpuscular Volume 85.9 fL (80.0-98.0); Mean Platelet Volume 9.9 fL (9.4-12.3); Platelet Count 208 X10*3/uL (160-400); Red Blood Count 4.26 X10*6/uL (4.20-5.50); Red Cell Distribution Width 14.2 % (11.0-16.0); White Blood Count 3.7 X10*3/uL (4.8-10.8)
[2022-11-03] MEDS: FLUoxetine HCl 20 MG CAPSULE 40 MG PO (08:31)
[2022-11-03] MEDS: 0.9 % Sodium Chloride Flush 3 ML SYRINGE IVFLUSH ×3 (08:31→22:38)
[2022-11-03] MEDS: Atorvastatin Calcium 40 MG TABLET PO (08:31)
[2022-11-03 11:16] LABS: Glucose, Whole Blood 118 mg/dL (60-115)
[2022-11-03] MEDS: guaiFENesin 100 MG/5 ML LIQUID PO ×2 (11:24→18:30)
[2022-11-03] MEDS: Butalb/Acetamin/Caff 50/325/40 TABLET 1 TAB PO (13:14)
--- NOTE | 2022-11-03 14:04 | P.PNIM_ITS ---
Subjective Subjective Date of Service: 11/03/22 Interval History: seen and examined this morning follow up for UTI, PNA ongoing sob with ambulation and ongoing cough Review of Systems Review of Systems: Yes all other systems are reviewed and are negative Constitutional Constitutional: Denies chills and Denies fever(s) ENT Ears, Nose, Mouth, and Throat: Reports dizziness (nurse reported some dizziness with ambulation ) Cardiovascular Cardiovascular: Denies chest pain, Denies palpitations and Reports dyspnea on exertion Respiratory Respiratory: Reports cough and Reports dyspnea on exertion Gastrointestinal Gastrointestinal: Denies abdominal pain Neurologic Neurologic: Reports dizziness (nurse reported some dizziness with ambulation ) Endocrine Endocrine: Denies palpitations Physical Exam Vital Signs: Vital Signs: Last Vital Signs Temp 99.0 F 11/03/22 07:09 Pulse 102 H 11/03/22 12:14 Resp 14 11/03/22 07:09 BP 129/72 11/03/22 12:14 Pulse Ox 96 11/03/22 07:09 O2 Del Method 11/03/22 07:09 O2 Flow Rate 2 11/03/22 04:00 BMI result Body Mass Index 37.0 Const: General: comfortable, no acute distress, alert and awake Nutritional Appearance: overweight Resp: Effort & Inspection: normal respiratory effort and able to speak in complete sentences Cardio: Rate: regular rate Heart sounds: S1 normal heart sound present and S2 normal heart sound present GI: Inspection: No distended Palpation (GI): Soft to palpation Neuro: Other: grossly nonfocal Extrem: General: Yes no pedal edema Objective Data Active Medications Acetaminophen (Acetaminophen 325 Mg Tablet) 650 mg PO Q6H PRN PRN Reason: Pain, Mild (Pain Scale 1-3) Last Admin: 11/03/22 11:31 Dose: 650 mg Documented By: VICTORIANO Atorvastatin Calcium (Atorvastatin Calcium 40 Mg Tablet) 40 mg PO DAILY [facility] Last Admin: 11/03/22 08:31 Dose: 40 mg Documented By: VICTORIANO Azithromycin (Azithromycin 500 Mg Tablet) 500 mg PO Q24H [facility] Last Admin: 11/02/22 20:26 Dose: 500 mg Documented By: ALEXANDRE Dextrose (Dextrose 50 % 25 Gm/50 Ml Syringe) 25 gm IVPUSH Q15M PRN; Protocol PRN Reason: per Hypoglycemia Standing Ord. Docusate Sodium (Docusate Sodium 100 Mg Capsule) 100 mg PO DAILY PRN PRN Reason: Constipation Enoxaparin Sodium (Enoxaparin Sodium 40 Mg/0.4 Ml Syringe) 40 mg SUBCUT Q24H [facility] Last Admin: 11/02/22 22:09 Dose: 40 mg Documented By: ALEXANDRE Fluoxetine HCl (Fluoxetine Hcl 20 Mg Capsule) 40 mg PO DAILY [facility] Last Admin: 11/03/22 08:31 Dose: 40 mg Documented By: VICTORIANO Glucose (Glucose Gel 15 Gm Gel..Gram.) 15 gm PO Q15M PRN; Protocol PRN Reason: per Hypoglycemia Standing Ord. Guaifenesin (Guaifenesin 100 Mg/5 Ml Liquid) 5 ml PO Q6H PRN PRN Reason: Cough Last Admin: 11/03/22 11:24 Dose: 5 ml Documented By: VICTORIANO Ceftriaxone Sodium 1 gm/ (Sodium Chloride) 50 mls @ 100 mls/hr IV Q24H [facility] Last Infusion: 11/02/22 21:15 Dose: 0 mls/hr Documented By: ALEXANDRE Insulin Human Lispro (Insulin Lispro 100 Unit/Ml 3 Ml Vial) 0 unit SUBCUT QI DACHS [facility]; Protocol Last Admin: 11/03/22 11:22 Dose: Not Given Documented By: VICTORIANO Non-Admin Reason: No Insulin Coverage Non-Formulary Medication (Cholecalciferol (Vitamin D3)) 1,250 mcg PO SALAZAR [facility] Non-Formulary Medication (Trospium) 60 mg PO DAILY [facility] Omeprazole (Omeprazole 40 Mg Capsule.Dr) 40 mg PO BID@0630,1630 [facility] Last Admin: 11/03/22 06:11 Dose: 40 mg Documented By: BHARATH Ondansetron HCl (Ondansetron Hcl 4 Mg/2 Ml Vial) 4 mg IVPUSH Q8H PRN PRN Reason: Nausea and Vomiting Pharmacy Consult (Consult Rx Perform Med Rec) 1 each MISCELLANE ONCE PRN PRN Reason: Consult order Sodium Chloride (0.9 % Sodium Chloride Flush 3 Ml Syringe) 3 ml IVFLUSH QSHIFT [facility] Last Admin: 11/03/22 08:31 Dose: 3 ml Documented By: VICTORIANO Trazodone HCl (Trazodone Hcl 100 Mg Tablet) 100 mg PO BEDTIME [facility] Last Admin: 11/02/22 21:16 Dose: 100 mg Documented By: ALEXANDRE Labs 11/03/22 06:58 11/02/22 04:33 Labs: Laboratory Results - last 24 hr 11/02/22 11/02/22 11/03/22 17:02 19:58 06:58 MCV 85.9 MCH 28.4 MCHC 33.1 RDW 14.2 Plt Count 208 MPV 9.9 Absolute Nucleated RBC 0.000 Nucleated RBC % (auto) 0.0 POC Glucose 110 173 H 11/03/22 11/03/22 07:07 11:11 MCV MCH MCHC RDW Plt Count MPV Absolute Nucleated RBC Nucleated RBC % (auto) POC Glucose 136 H 118 H Microbiology Microbiology Results: Microbiology 11/01/22 22:30 Urine Culture - Final Urine clean catch - Urine pelaez top 11/01/22 19:37 Blood Culture - Preliminary Blood - Venous No growth after 24 hours. 11/01/22 19:36 Blood Culture - Preliminary Blood - Venous No growth after 24 hours. Assessment and Plan (1) Community acquired pneumonia: Status: Acute (2) UTI (urinary tract infection): Status: Acute Plan 62-year-old female with past medical history as mentioned above presents to the hospital with complaints of confusion found to have pneumonia as well as UTI acute sepsis likely multifactorial secondary to community-acquired pneumonia and UTI Met criteria with tachycardia, fever,, leukopenia, no end-organ damage, negative influenza, RSV and COVID Continue IV ceftriaxone and azithromycin day 2 Urine culture growing >100,000 cfu mixed bacterial daniela Blood cultures negative to date currently on room air acute metabolic encephalopathy. resolved secondary to acute infection diabetes type 2 is stable blood sugars hold metformin, continue sliding scale insulin, follow point of care hyperlipidemia continue statin depression continue fluoxetine and trazodone DVT prophylaxis:? Lovenox attending - dr. bartlett ?Patient need continued inpatient hospitalization for treatment of acute pneumonia, sepsis and UTI requiring IV antibiotics. Time Spent With Patient Time: Total time managing care of this patient today ____ minutes. Quality Stroke Does the patient have a stroke diagnosis?: No VTE Prior VTE?: No VTE Risk Level:: Medical - moderate - high VTE Device Contraindication: Treatment Not Indicated VTE Drug Contraindication: N/A - Med Ordered
[2022-11-03 16:09] LABS: Glucose, Whole Blood 119 mg/dL (60-115)
[2022-11-03] MEDS: oxyCODONE HCl Immed Release 5 MG TABLET PO (18:58)
[2022-11-03 20:15] LABS: Glucose, Whole Blood 189 mg/dL (60-115)
[2022-11-03] MEDS: Enoxaparin Sodium 40 MG/0.4 ML SYRINGE SUBCUT (21:31)
[2022-11-03] MEDS: Insulin Lispro 100 UNIT/ML 3 ML VIAL SUBCUT (21:31)
[2022-11-03] MEDS: traZODone HCL 100 MG TABLET PO (21:31)
[2022-11-03] MEDS: Azithromycin 500 MG TABLET PO (21:31)
[2022-11-03] MEDS: cefTRIAXone sodium 1 GM in 0.9 % Sodium Chloride 50 ML IV (21:32)
[2022-11-04] VITALS (9 sets, daily range): BP systolic 122–172; BP diastolic 70–90; PULSE 75–108; RESP 17–20; TEMP 36.4–37.6; O2SAT 90–96
[2022-11-04] MEDS: Omeprazole 40 MG CAPSULE.DR PO ×2 (06:01→16:44)
[2022-11-04 07:32] LABS: Glucose, Whole Blood 126 mg/dL (60-115)
[2022-11-04] MEDS: Atorvastatin Calcium 40 MG TABLET PO (07:34)
[2022-11-04] MEDS: FLUoxetine HCl 20 MG CAPSULE 40 MG PO (07:34)
[2022-11-04] MEDS: 0.9 % Sodium Chloride Flush 3 ML SYRINGE IVFLUSH ×3 (07:34→21:12)
[2022-11-04] MEDS: Meclizine HCl 12.5 MG TABLET PO (07:51)
[2022-11-04 11:22] LABS: Glucose, Whole Blood 116 mg/dL (60-115)
--- NOTE | 2022-11-04 13:12 | MHC.CM.PN ---
DP home self care with family transport. No discharge today per MD rounds. Patient c/o headache and dizziness. Discharge is anticipated tomorrow
--- NOTE | 2022-11-04 14:14 | P.PNIM_ITS ---
Subjective Subjective Date of Service: 11/04/22 Interval History: seen and examined this morning follow up for pneumonia reporting dizziness - states she gets dizziness when she gets sick. Review of Systems Review of Systems: Yes all other systems are reviewed and are negative Constitutional Constitutional: Denies chills and Denies fever(s) Cardiovascular Cardiovascular: Denies chest pain, Denies palpitations and Denies dyspnea Respiratory Respiratory: Reports cough and Denies dyspnea Gastrointestinal Gastrointestinal: Denies abdominal pain Endocrine Endocrine: Denies palpitations Physical Exam Vital Signs: Vital Signs: Last Vital Signs Temp 98.7 F 11/04/22 08:00 Pulse 86 11/04/22 08:00 Resp 18 11/04/22 08:00 BP 132/70 11/04/22 08:00 Pulse Ox 94 11/04/22 08:00 O2 Del Method 11/04/22 06:59 O2 Flow Rate 2 11/04/22 03:21 BMI result Body Mass Index 37.0 Const: General: comfortable, no acute distress, alert and awake Nutritional Appearance: overweight Resp: Effort & Inspection: normal respiratory effort and able to speak in complete sentences Cardio: Rate: regular rate Heart sounds: S1 normal heart sound present and S2 normal heart sound present GI: Inspection: No distended Palpation (GI): Soft to palpation Neuro: Other: grossly nonfocal Extrem: General: Yes no pedal edema Objective Data Active Medications Acetaminophen (Acetaminophen 325 Mg Tablet) 650 mg PO Q6H PRN PRN Reason: Pain, Mild (Pain Scale 1-3) Last Admin: 11/03/22 11:31 Dose: 650 mg Documented By: VICTORIANO Atorvastatin Calcium (Atorvastatin Calcium 40 Mg Tablet) 40 mg PO DAILY [facility] Last Admin: 11/04/22 07:34 Dose: 40 mg Documented By: ANAI Azithromycin (Azithromycin 500 Mg Tablet) 500 mg PO Q24H [facility] Last Admin: 11/03/22 21:31 Dose: 500 mg Documented By: POP Dextrose (Dextrose 50 % 25 Gm/50 Ml Syringe) 25 gm IVPUSH Q15M PRN; Protocol PRN Reason: per Hypoglycemia Standing Ord. Docusate Sodium (Docusate Sodium 100 Mg Capsule) 100 mg PO DAILY PRN PRN Reason: Constipation Enoxaparin Sodium (Enoxaparin Sodium 40 Mg/0.4 Ml Syringe) 40 mg SUBCUT Q24H [facility] Last Admin: 11/03/22 21:31 Dose: 40 mg Documented By: POP Fluoxetine HCl (Fluoxetine Hcl 20 Mg Capsule) 40 mg PO DAILY [facility] Last Admin: 11/04/22 07:34 Dose: 40 mg Documented By: ANAI Glucose (Glucose Gel 15 Gm Gel..Gram.) 15 gm PO Q15M PRN; Protocol PRN Reason: per Hypoglycemia Standing Ord. Guaifenesin (Guaifenesin 100 Mg/5 Ml Liquid) 5 ml PO Q6H PRN PRN Reason: Cough Last Admin: 11/03/22 18:30 Dose: 5 ml Documented By: VICTORIANO Guaifenesin (Guaifenesin La 600 Mg Tab.Er.12h) 1,200 mg PO BID [facility] Ceftriaxone Sodium 1 gm/ (Sodium Chloride) 50 mls @ 100 mls/hr IV Q24H [facility] Last Infusion: 11/03/22 22:37 Dose: 0 mls/hr Documented By: POP Insulin Human Lispro (Insulin Lispro 100 Unit/Ml 3 Ml Vial) 0 unit SUBCUT QIDACHS [facility]; Protocol Last Admin: 11/04/22 11:26 Dose: Not Given Documented By: ANAI Non-Admin Reason: No Insulin Coverage Non-Formulary Medication (Cholecalciferol (Vitamin D3)) 1,250 mcg PO SALAZAR [facility] Non-Formulary Medication (Trospium) 60 mg PO DAILY [facility] Omeprazole (Omeprazole 40 Mg Capsule.Dr) 40 mg PO BID@0630,1630 [facility] Last Admin: 11/04/22 06:01 Dose: 40 mg Documented By: POP Ondansetron HCl (Ondansetron Hcl 4 Mg/2 Ml Vial) 4 mg IVPUSH Q8H PRN PRN Reason: Nausea and Vomiting Pharmacy Consult (Consult Rx Perform Med Rec) 1 each MISCELLANE ONCE PRN PRN Reason: Consult order Sodium Chloride (0.9 % Sodium Chloride Flush 3 Ml Syringe) 3 ml IVFLUSH QSHIFT [facility] Last Admin: 11/04/22 07:34 Dose: 3 ml Documented By: ANAI Trazodone HCl (Trazodone Hcl 100 Mg Tablet) 100 mg PO BEDTIME [facility] Last Admin: 11/03/22 21:31 Dose: 100 mg Documented By: POP Labs 11/03/22 06:58 11/02/22 04:33 Labs: Laboratory Results - last 24 hr 11/03/22 11/03/22 11/04/22 16:03 20:09 07:21 POC Glucose 119 H 189 H 126 H 11/04/22 11:11 POC Glucose 116 H Microbiology Microbiology Results: Microbiology 11/01/22 19:37 Blood Culture - Preliminary Blood - Venous No growth after 48 hours. 11/01/22 19:36 Blood Culture - Preliminary Blood - Venous No growth after 48 hours. 11/01/22 22:30 Urine Culture - Final Urine clean catch - Urine pelaez top Assessment and Plan (1) Sepsis: Status: Acute (2) Community acquired pneumonia: Status: Acute Plan 62-year-old female with past medical history as mentioned above presents to the hospital with complaints of confusion found to have pneumonia as well as UTI acute sepsis likely multifactorial secondary to community-acquired pneumonia and UTI Met criteria with tachycardia, fever, leukopenia, no end-organ damage, negative influenza, RSV and COVID Continue IV ceftriaxone and azithromycin day 3 Urine culture growing >100,000 cfu mixed bacterial daniela Blood cultures negative to date currently on room air acute metabolic encephalopathy. resolved secondary to acute infection diabetes type 2 is stable blood sugars hold metformin, continue sliding scale insulin, follow point of care hyperlipidemia continue statin depression continue fluoxetine and trazodone DVT prophylaxis:? Lovelethax attending - dr. bartlett Patient need continued inpatient hospitalization for treatment of acute pneumonia, sepsis and UTI requiring IV antibiotics. Time Spent With Patient Time: Total time managing care of this patient today ____ minutes. Quality Stroke Does the patient have a stroke diagnosis?: No VTE Prior VTE?: No VTE Risk Level:: Medical - moderate - high VTE Device Contraindication: Treatment Not Indicated VTE Drug Contraindication: N/A - Med Ordered
[2022-11-04] MEDS: Acetaminophen 325 MG TABLET 650 MG PO ×2 (14:39→21:11)
[2022-11-04] MEDS: 0.9 % Sodium Chloride 500 ML 80 ML IVCONT (14:58)
[2022-11-04 15:06] LABS: Glucose, Whole Blood 158 mg/dL (60-115)
[2022-11-04] MEDS: Insulin Lispro 100 UNIT/ML 3 ML VIAL SUBCUT (16:44)
[2022-11-04 18:57] LABS: Glucose, Whole Blood 125 mg/dL (60-115)
[2022-11-04] MEDS: cefTRIAXone sodium 1 GM in 0.9 % Sodium Chloride 50 ML IV (21:11)
[2022-11-04] MEDS: Enoxaparin Sodium 40 MG/0.4 ML SYRINGE SUBCUT (21:11)
[2022-11-04] MEDS: guaiFENesin LA 600 MG TAB.ER.12H 1200 MG PO (21:12)
[2022-11-04] MEDS: traZODone HCL 100 MG TABLET PO (21:12)
[2022-11-04] MEDS: Azithromycin 500 MG TABLET PO (21:12)
[2022-11-05] MEDS: Omeprazole 40 MG CAPSULE.DR PO ×2 (05:56→18:11)
[2022-11-05 06:59] VITALS: BP 112/58; PULSE 66; RESP 19; TEMP 36.6; O2SAT 92
[2022-11-05 07:25] LABS: Glucose, Whole Blood 126 mg/dL (60-115)
[2022-11-05] MEDS: FLUoxetine HCl 20 MG CAPSULE 40 MG PO (07:48)
[2022-11-05] MEDS: guaiFENesin LA 600 MG TAB.ER.12H 1200 MG PO ×2 (07:48→21:03)
[2022-11-05] MEDS: Atorvastatin Calcium 40 MG TABLET PO (07:48)
[2022-11-05] MEDS: 0.9 % Sodium Chloride Flush 3 ML SYRINGE IVFLUSH ×3 (07:49→21:04)
[2022-11-05] MEDS: Meclizine HCl 25 MG TABLET PO (08:02)
[2022-11-05 12:25] LABS: Glucose, Whole Blood 109 mg/dL (60-115)
[2022-11-05] MEDS: Acetaminophen 325 MG TABLET 650 MG PO (12:26)
--- NOTE | 2022-11-05 13:05 | P.PNIM_ITS ---
Subjective Subjective Date of Service: 11/05/22 Interval History: seen and examined this morning follow up for pneumonia reporting dizziness, states that she always gets dizzy when she is sick and has a history of vasovagal syncope. sometimes she states she feels like she might pass out when she stands up, sometimes its more like feeling spinning/off balance. she has h/o vertigo and require Eply maneuver in the past no arm or leg weakness, no vision changes Review of Systems Review of Systems: Yes all other systems are reviewed and are negative Constitutional Constitutional: Denies chills and Denies fever(s) ENT Ears, Nose, Mouth, and Throat: Reports dizziness Cardiovascular Cardiovascular: Denies chest pain, Denies palpitations and Denies dyspnea Respiratory Respiratory: Reports cough and Denies dyspnea Gastrointestinal Gastrointestinal: Denies abdominal pain, Denies nausea and Denies vomiting Neurologic Neurologic: Reports dizziness Endocrine Endocrine: Denies palpitations Physical Exam Vital Signs: Vital Signs: Last Vital Signs Temp 98 F 11/05/22 06:59 Pulse 66 11/05/22 06:59 Resp 19 11/05/22 06:59 BP 112/58 L 11/05/22 06:59 Pulse Ox 92 11/05/22 06:59 O2 Del Method 11/05/22 06:59 O2 Flow Rate 2 11/04/22 03:21 BMI result Body Mass Index 37.0 Const: General: comfortable, no acute distress, alert and awake Nutritional Appearance: overweight Orientation/consciousness: patient oriented x3 Resp: Effort & Inspection: normal respiratory effort, able to speak in c omplete sentences, no respiratory distress and no use of accessory muscles Cardio: Rate: regular rate Heart sounds: S1 normal heart sound present and S2 normal heart sound present GI: Inspection: No distended Palpation (GI): Soft to palpation Neuro: Other: strength equal b/l UE and LE; hand grasp equal, tongue midline, face symmetrical; attempted to evaluate EOM - pt keep closing her eyes, difficult to assess General: patient oriented x3 Extrem: Other: able to move all four extremities spontaneously General: Yes no pedal edema Objective Data Active Medications Acetaminophen (Acetaminophen 325 Mg Tablet) 650 mg PO Q6H PRN PRN Reason: Pain, Mild (Pain Scale 1-3) Last Admin: 11/05/22 12:26 Dose: 650 mg Documented By: SABIHA Atorvastatin Calcium (Atorvastatin Calcium 40 Mg Tablet) 40 mg PO DAILY [facility] Last Admin: 11/05/22 07:48 Dose: 40 mg Documented By: SABIHA Azithromycin (Azithromycin 500 Mg Tablet) 500 mg PO Q24H [facility] Last Admin: 11/04/22 21:12 Dose: 500 mg Documented By: BOBO Dextrose (Dextrose 50 % 25 Gm/50 Ml Syringe) 25 gm IVPUSH Q15M PRN; Protocol PRN Reason: per Hypoglycemia Standing Ord. Docusate Sodium (Docusate Sodium 100 Mg Capsule) 100 mg PO DAILY PRN PRN Reason: Constipation Enoxaparin Sodium (Enoxaparin Sodium 40 Mg/0.4 Ml Syringe) 40 mg SUBCUT Q24H [facility] Last Admin: 11/04/22 21:11 Dose: 40 mg Documented By: BOBO Fluoxetine HCl (Fluoxetine Hcl 20 Mg Capsule) 40 mg PO DAILY [facility] Last Admin: 11/05/22 07:48 Dose: 40 mg Documented By: SABIHA Glucose (Glucose Gel 15 Gm Gel..Gram.) 15 gm PO Q15M PRN; Protocol PRN Reason: per Hypoglycemia Standing Ord. Guaifenesin (Guaifenesin 100 Mg/5 Ml Liquid) 5 ml PO Q6H PRN PRN Reason: Cough Last Admin: 11/03/22 18:30 Dose: 5 ml Documented By: VICTORIANO Guaifenesin (Guaifenesin La 600 Mg Tab.Er.12h) 1,200 mg PO BID [facility] Last Admin: 11/05/22 07:48 Dose: 1,200 mg Documented By: SABIHA Ceftriaxone Sodium 1 gm/ (Sodium Chloride) 50 mls @ 100 mls/hr IV Q24H [facility] Last Infusion: 11/04/22 22:19 Dose: 0 mls/hr Documented By: BOBO Insulin Human Lispro (Insulin Lispro 100 Unit/Ml 3 Ml Vial) 0 unit SUBCUT Q IDACHS [facility]; Protocol Last Admin: 11/05/22 12:36 Dose: Not Given Documented By: SABIHA Non-Admin Reason: No Insulin Coverage Meclizine HCl (Meclizine Hcl 25 Mg Tablet) 25 mg PO Q8H PRN PRN Reason: dizziness Last Admin: 11/05/22 08:02 Dose: 25 mg Documented By: SBAIHA Omeprazole (Omeprazole 40 Mg Som.) 40 mg PO BID@0630,1630 [facility] Last Admin: 11/05/22 05:56 Dose: 40 mg Documented By: BOBO Ondansetron HCl (Ondansetron Hcl 4 Mg/2 Ml Vial) 4 mg IVPUSH Q8H PRN PRN Reason: Nausea and Vomiting Pharmacy Consult (Consult Rx Perform Med Rec) 1 each MISCELLANE ONCE PRN PRN Reason: Consult order Sodium Chloride (0.9 % Sodium Chloride Flush 3 Ml Syringe) 3 ml IVFLUSH QSHIFT [facility] Last Admin: 11/05/22 07:49 Dose: 3 ml Documented By: SABIHA Trazodone HCl (Trazodone Hcl 100 Mg Tablet) 100 mg PO BEDTIME [facility] Last Admin: 11/04/22 21:12 Dose: 100 mg Documented By: BOBO Labs 11/03/22 06:58 11/02/22 04:33 Labs: Laboratory Results - last 24 hr 11/04/22 11/04/22 11/05/22 15:01 18:44 06:59 POC Glucose 158 H 125 H 126 H 11/05/22 12:15 POC Glucose 109 Assessment and Plan (1) Community acquired pneumonia: Status: Acute Plan 62-year-old female with past medical history as mentioned above presents to the hospital with complaints of confusion found to have pneumonia as well as UTI acute sepsis likely multifactorial secondary to community-acquired pneumonia and UTI Met criteria with tachycardia, fever, leukopenia, no end-organ damage, negative influenza, RSV and COVID Continue IV ceftriaxone and azithromycin day 4 Urine culture growing >100,000 cfu mixed bacterial daniela Blood cultures negative to date currently on room air acute metabolic encephalopathy. resolved secondary to acute infection dizziness h/o vertigo worse with movement orthos negative likely BPPV, but will obtain brain CT to eval for stroke prn meclizine diabetes type 2 is stable blood sugars hold metformin, continue sliding scale insulin, follow point of care hyperlipidemia continue statin depression continue fluoxetine and trazodone DVT prophylaxis:? Alicia attending - dr. Buckley Patient needs continued inpatient hospitalization for treatment of acute pneumonia, sepsis and UTI requiring IV antibiotics. Time Spent With Patient Time: Total time managing care of this patient today ____ minutes. Quality Stroke Does the patient have a stroke diagnosis?: No VTE Prior VTE?: No VTE Risk Level:: Medical - moderate - high VTE Device Contraindication: Treatment Not Indicated VTE Drug Contraindication: N/A - Med Ordered
[2022-11-05 16:00] VITALS: BP 165/77; PULSE 69; RESP 18; TEMP 36.4; O2SAT 93
[2022-11-05 16:44] LABS: Glucose, Whole Blood 98 mg/dL (60-115)
[2022-11-05 20:00] VITALS: BP 171/70; PULSE 70; RESP 20; TEMP 36.8; O2SAT 95
[2022-11-05 20:35] LABS: Glucose, Whole Blood 118 mg/dL (60-115)
[2022-11-05] MEDS: cefTRIAXone sodium 1 GM in 0.9 % Sodium Chloride 50 ML IV (20:57)
[2022-11-05] MEDS: Azithromycin 500 MG TABLET PO (21:02)
[2022-11-05] MEDS: traZODone HCL 100 MG TABLET PO (21:02)
[2022-11-05] MEDS: Enoxaparin Sodium 40 MG/0.4 ML SYRINGE SUBCUT (21:03)
[2022-11-06 03:47] VITALS: BP 163/70; PULSE 70; RESP 20; TEMP 36.6; O2SAT 93
[2022-11-06] MEDS: Omeprazole 40 MG CAPSULE.DR PO ×2 (06:08→16:40)
[2022-11-06 07:12] VITALS: BP 170/86; PULSE 72; RESP 16; TEMP 36.6; O2SAT 93
[2022-11-06 07:32] LABS: Glucose, Whole Blood 108 mg/dL (60-115)
[2022-11-06] MEDS: guaiFENesin LA 600 MG TAB.ER.12H 1200 MG PO ×2 (08:41→21:12)
[2022-11-06] MEDS: Atorvastatin Calcium 40 MG TABLET PO (08:42)
[2022-11-06] MEDS: 0.9 % Sodium Chloride Flush 3 ML SYRINGE IVFLUSH ×3 (08:42→21:13)
[2022-11-06] MEDS: Acetaminophen 325 MG TABLET 650 MG PO (08:42)
[2022-11-06] MEDS: FLUoxetine HCl 20 MG CAPSULE 40 MG PO (08:42)
[2022-11-06] MEDS: Butalb/Acetamin/Caff 50/325/40 TABLET 1 TAB PO (10:50)
[2022-11-06 11:05] LABS: Glucose, Whole Blood 96 mg/dL (60-115)
--- NOTE | 2022-11-06 15:04 | P.PNIM_ITS ---
Subjective Subjective Date of Service: 11/06/22 Interval History: seen and examined this morning follow up for pneumonia still coughing still reporting dizziness, although a little less severe with movement Review of Systems Review of Systems: Yes all other systems are reviewed and are negative Constitutional Constitutional: Denies chills and Denies fever(s) ENT Ears, Nose, Mouth, and Throat: Reports dizziness Cardiovascular Cardiovascular: Denies chest pain, Denies palpitations and Denies dyspnea Respiratory Respiratory: Reports cough and Denies dyspnea Gastrointestinal Gastrointestinal: Reports abdominal pain Neurologic Neurologic: Reports dizziness Endocrine Endocrine: Denies palpitations Physical Exam Vital Signs: Vital Signs: Last Vital Signs Temp 97.8 F 11/06/22 07:12 Pulse 72 11/06/22 07:12 Resp 16 11/06/22 07:12 BP 170/86 H 11/06/22 07:12 Pulse Ox 93 11/06/22 07:12 O2 Del Method 11/06/22 07:12 O2 Flow Rate 2 11/04/22 03:21 BMI result Body Mass Index 37.0 Const: General: comfortable, no acute distress, alert and awake Nutritional Appearance: overweight Orientation/consciousness: patient oriented x3 Resp: Effort & Inspection: normal respiratory effort, able to speak in complete sentences, no respiratory distress and no use of accessory muscles Cardio: Rate: regular rate Heart sounds: S1 normal heart sound present and S2 normal heart sound present GI: Inspection: No distended Palpation (GI): Soft to palpation Neuro: Other: strength equal b/l UE and LE; hand grasp equal, tongue midline, face symmetrical; attempted to evaluate EOM - pt keeps closing her eyes, difficult to assess General: patient oriented x3 Extrem: Other: able to move all four extremities spontaneously General: Yes no pedal edema Objective Data Active Medications Acetaminophen (Acetaminophen 325 Mg Tablet) 650 mg PO Q6H PRN PRN Reason: Pain, Mild (Pain Scale 1-3) Last Admin: 11/06/22 08:42 Dose: 650 mg Documented By: KOURTNEY Atorvastatin Calcium (Atorvastatin Calcium 40 Mg Tablet) 40 mg PO DAILY [facility] Last Admin: 11/06/22 08:42 Dose: 40 mg Documented By: KOURTNEY Azithromycin (Azithromycin 500 Mg Tablet) 500 mg PO Q24H [facility] Last Admin: 11/05/22 21:02 Dose: 500 mg Documented By: SHIREEN Dextrose (Dextrose 50 % 25 Gm/50 Ml Syringe) 25 gm IVPUSH Q15M PRN; Protocol PRN Reason: per Hypoglycemia Standing Ord. Docusate Sodium (Docusate Sodium 100 Mg Capsule) 100 mg PO DAILY PRN PRN Reason: Constipation Enoxaparin Sodium (Enoxaparin Sodium 40 Mg/0.4 Ml Syringe) 40 mg SUBCUT Q24H [facility] Last Admin: 11/05/22 21:03 Dose: 40 mg Documented By: SHIREEN Fluoxetine HCl (Fluoxetine Hcl 20 Mg Capsule) 40 mg PO DAILY [facility] Last Admin: 11/06/22 08:42 Dose: 40 mg Documented By: KOURTNEY Glucose (Glucose Gel 15 Gm Gel..Gram.) 15 gm PO Q15M PRN; Protocol PRN Reason: per Hypoglycemia Standing Ord. Guaifenesin (Guaifenesin 100 Mg/5 Ml Liquid) 5 ml PO Q6H PRN PRN Reason: Cough Last Admin: 11/03/22 18:30 Dose: 5 ml Documented By: VICTORIANO Guaifenesin (Guaifenesin La 600 Mg Tab.Er.12h) 1,200 mg PO BID [facility] Last Admin: 11/06/22 08:41 Dose: 1,200 mg Documented By: KOURTNEY Ceftriaxone Sodium 1 gm/ (Sodium Chloride) 50 mls @ 100 mls/hr IV Q24H [facility] Last Infusion: 11/05/22 21:39 Dose: 0 mls/hr Documented By: SHIREEN Insulin Human Lispro (Insulin Lispro 100 Unit/Ml 3 Ml Vial) 0 unit SUBCUT QIDACHS [facility]; Protocol Last Admin: 11/06/22 12:34 Dose: Not Given Documented By: KOURTNEY Non-Admin Reason: No Insulin Coverage Meclizine HCl (Meclizine Hcl 25 Mg Tablet) 25 mg PO Q8H PRN PRN Reason: dizziness Last Admin: 11/05/22 08:02 Dose: 25 mg Documented By: SABIHA Omeprazole (Omeprazole 40 Mg Capsule.Dr) 40 mg PO BID@0630,1630 [facility] Last Admin: 11/06/22 06:08 Dose: 40 mg Documented By: SHIREEN Ondansetron HCl (Ondansetron Hcl 4 Mg/2 Ml Vial) 4 mg IVPUSH Q8H PRN PRN Reason: Nausea and Vomiting Pharmacy Consult (Consult Rx Perform Med Rec) 1 each MISCELLANE ONCE PRN PRN Reason: Consult order Sodium Chloride (0.9 % Sodium Chloride Flush 3 Ml Syringe) 3 ml IVFLUSH QSHIFT [facility] Last Admin: 11/06/22 08:42 Dose: 3 ml Documented By: KOURTNEY Trazodone HCl (Trazodone Hcl 100 Mg Tablet) 100 mg PO BEDTIME [facility] Last Admin: 11/05/22 21:02 Dose: 100 mg Documented By: SHIREEN Labs 11/03/22 06:58 11/02/22 04:33 Labs: Laboratory Results - last 24 hr 11/05/22 11/05/22 11/06/22 16:27 20:30 07:11 POC Glucose 98 118 H 108 11/06/22 10:58 POC Glucose 96 Assessment and Plan (1) Community acquired pneumonia: Status: Acute Plan 62-year-old female with past medical history as mentioned above presents to the hospital with complaints of confusion found to have pneumonia as well as UTI acute sepsis likely multifactorial secondary to community-acquired pneumonia and UTI Met criteria with tachycardia, fever, leukopenia, no end-organ damage, negative influenza, RSV and COVID Continue IV ceftriaxone and azithromycin day 5 Urine culture growing >100,000 cfu mixed bacterial daniela Blood cultures negative to date currently on room air acute metabolic encephalopathy. resolved secondary to acute infection dizziness h/o vertigo worse with movement; orthos negative, likely BPPV brain CT negative continue prn meclizine continue to be dizzy, will obtain neuro consult for further evaluation high blood pressure readings BP up and down if persistently elevated will start low dose norvasc diabetes type 2 is stable blood sugars hold metformin, continue sliding scale insulin, follow point of care hyperlipidemia continue statin depression continue fluoxetine and trazodone DVT prophylaxis:? [place] attending - dr. Crooks Patient needs continued inpatient hospitalization for treatment of acute pneumonia, sepsis and UTI requiring IV antibiotics. Time Spent With Patient Time: Total time managing care of this patient today ____ minutes. Quality Stroke Does the patient have a stroke diagnosis?: No VTE Prior VTE?: No VTE Risk Level:: Medical - moderate - high VTE Device Contraindication: Treatment Not Indicated VTE Drug Contraindication: N/A - Med Ordered
[2022-11-06 15:58] VITALS: BP 170/86; PULSE 72; TEMP 36.6; O2SAT 94
[2022-11-06 16:13] LABS: Glucose, Whole Blood 92 mg/dL (60-115)
[2022-11-06] MEDS: amLODIPine Besylate 2.5 MG TABLET PO (16:40)
[2022-11-06] MEDS: Meclizine HCl 25 MG TABLET PO (16:40)
[2022-11-06 20:00] VITALS: BP 157/72; PULSE 67; RESP 17; TEMP 36.3; O2SAT 97
[2022-11-06 21:00] LABS: Glucose, Whole Blood 136 mg/dL (60-115)
[2022-11-06] MEDS: cefTRIAXone sodium 1 GM in 0.9 % Sodium Chloride 50 ML IV (21:12)
[2022-11-06] MEDS: Azithromycin 500 MG TABLET PO (21:12)
[2022-11-06] MEDS: Enoxaparin Sodium 40 MG/0.4 ML SYRINGE SUBCUT (21:12)
[2022-11-06] MEDS: traZODone HCL 100 MG TABLET PO (21:12)
[2022-11-07 02:52] VITALS: BP 171/77; PULSE 80; RESP 17; TEMP 36.2; O2SAT 94
[2022-11-07] MEDS: Omeprazole 40 MG CAPSULE.DR PO (06:09)
[2022-11-07 07:48] LABS: Glucose, Whole Blood 119 mg/dL (60-115)
[2022-11-07 08:00] VITALS: BP 159/87; PULSE 71; RESP 18; TEMP 36.2; O2SAT 96
[2022-11-07] MEDS: Atorvastatin Calcium 40 MG TABLET PO (09:11)
[2022-11-07] MEDS: amLODIPine Besylate 2.5 MG TABLET PO (09:11)
[2022-11-07] MEDS: FLUoxetine HCl 20 MG CAPSULE 40 MG PO (09:11)
[2022-11-07] MEDS: guaiFENesin LA 600 MG TAB.ER.12H 1200 MG PO (09:11)
--- NOTE | 2022-11-07 09:48 | MHC.STROKE ---
[id number] I SPOKE WITH BAR SUPERVISOR AND THE NEUROLOGY CONSULT IS CANCELED. I DID NOTIFY DR EATON.
[2022-11-07 10:00] VITALS: BP 159/87; PULSE 71; O2SAT 96
--- NOTE | 2022-11-07 10:52 | PM.DS ---
DS: Providers Provider Date of Service: 11/07/22 Date of admission: 11/01/22 22:09 Primary care physician: Flakita Calero MD Consults: 11/06/22 13:26 Consult to Neurology Routine Consulting Provider: [facility] Reason for consultation: persistent dizziness Has provider been notified: No Attending physician on discharge: Erasmo Stacy Discharging clinician: Lashonda Salmeron DS: Diagnosis Discharge Diagnosis (1) Community acquired pneumonia: Status: Acute DS: Summary Hospital Course Hospital Course: history and physical as per admitting provider 62-year-old female with past medical history of? dyslipidemia, diabetes, HTN, vitamin-D deficiency, depression, history of pulmonary emboli, history of thyroid cancer? Status post partial thyroidectomy presents to the hospital with complaints of increased confusion per her daughter. patient is alert, oriented to self and place, able to give history appropriately.? States that her daughter noticed her to be more confused, patient reports that she has also noticed herself to be more confused, fatigue, lethargic,? short of breath,has had a cough for the past few days, productive, feeling febrile, chills.? Patient denies having any urinary symptoms.? Reports no weakness numbness or tingling, no chest pain, no abdominal pain, no lower extremity edema.?On arrival to the ED patient hemodynamically stable with a? temperature of 102.6 degrees, heart rate of 104 Satting 95% on room air labs are significant for? WBC count of 4.1, hemoglobin of 11, medical 33.3, urine positive for nitrites, leukocyte Estrace and WBC Chest x-ray shows left lower lobe pneumonia . Acute sepsis likely multifactorial secondary to community-acquired pneumonia and UTI. Met criteria with tachycardia, fever and leukopenia. RSV, COVID and flu negative. Treated with Rocephin and azithromycin, continue 2 more days at home. Blood cultures negative. Urine culture growing mixed daniela. Acute metabolic encephalopathy. Secondary to infection as above. Resolved. Vertigo. Negative orthostatic blood pressures, head CT negative for acute abnormality. Treated with as needed meclizine. Resolved. High blood pressure readings. Still elevated with systolic blood pressure in the 150s to 170s. Started amlodipine 2.5 mg daily, may continue at home. Follow-up with primary care provider to manage medications. Diabetes mellitus. Continue home medications Hyperlipidemia. Continue statin Depression. Continue home medications Time Spent with Patient Time attestation: Total time managing care of this patient today ____ minutes. Discharge coordination time: Greater than 30 minutes Quality: Safe Use of Opioids Does Pt have an Active Cancer Diagnosis on the Problem List?: No Quality: Stroke Does the patient have a stroke diagnosis?: No Physical Exam Vital Signs: Vital Signs: Last Vital Signs Temp 97.2 F 11/07/22 08:00 Pulse 71 11/07/22 10:00 Resp 18 11/07/22 08:00 BP 159/87 H 11/07/22 10:00 Pulse Ox 96 11/07/22 10:00 O2 Del Method 11/07/22 08:00 O2 Flow Rate 2 11/04/22 03:21 BMI result Body Mass Index 37.0 Appearing in no acute distress head is normocephalic atraumatic eyes pupils are PERRLA sclera is anicteric mouth throat mucous membranes are intact and moist neck is supple no lymphadenopathy, no JVD noted lung sounds are clear to auscultation heart regular rate rhythm, clear S1, S2 positive bowel sounds, abdomen is soft, nontender neuro patient is alert x3, no focal deficits DS: Data Data Completed and Pending Labs on day of discharge: Laboratory Results - last 24 hr 11/06/22 11/06/22 11/06/22 10:58 16:05 20:51 POC Glucose 96 92 136 H 11/07/22 07:40 POC Glucose 119 H Discharge Plan Discharge Anticipated Discharge Date/Time: 11/07/22 10:47 Patient Disposition: Home Health Service Discharge Diagnosis: Community-acquired pneumonia Acute metabolic encephalopathy UTI Referrals: Flakita Calero MD [Primary Care Provider] - 1 Week Discharge Medications: New guaifenesin 100 mg/5 mL Liquid 100 mg PO Q6H PRN (Reason: Cough) Qty: 473 0RF amlodipine 2.5 mg Tablet 2.5 mg PO DAILY Qty: 30 0RF Protocol: Hold for SBP< HOLD for SBP < : 90 azithromycin 500 mg Tablet 500 mg PO Q24H Qty: 2 0RF cefuroxime axetil 500 mg tablet 500 mg PO BID Qty: 4 0RF Continued fluoxetine 20 mg capsule 40 mg PO DAILY Qty: 60 5RF trazodone 100 mg tablet 100 mg PO BEDTIME Qty: 30 3RF omeprazole 40 mg capsule,delayed release(DR/EC) 40 mg PO BID Qty: 60 3RF atorvastatin 40 mg tablet 40 mg PO DAILY Qty: 90 1RF metformin 500 mg tablet 500 mg PO DAILY cholecalciferol (vitamin D3) 1,250 mcg (50,000 unit) capsule 1,250 mcg PO SALAZAR trospium 60 mg capsule,extended release 24hr 60 mg PO DAILY Discharge Orders: Discharge Order (Routine); Ordered 11/07/22 Ordered By: Lashonda Salmeron Diet: Advance to usual diet Activity on Discharge: As tolerated Stand Alone Forms: Patient Portal Discharge page Care Plan Goals: complete resolution of symptoms Health Concerns: Community-acquired pneumonia Acute metabolic encephalopathy UTI Plan of Treatment: follow-up with primary care provider as needed take all medications as prescribed Assessment: see discharge summary
--- NOTE | 2022-11-07 10:59 | MHC.CM.PN ---
HOME - SELF CARE SPOUSE TO TRANSPORT IMM 11/06 IN CHART RN AWARE OF PLAN
[2022-11-07 11:12] LABS: Glucose, Whole Blood 106 mg/dL (60-115)
== END 2022-11-07 15:26 | disposition home or self-care (01) | DRG 871 ==
LOC: HO.ED 21:55 → HO.EDOVER 22:27 → HO.IMC 11-02 08:48 → HO.S3 11-05 02:43
PROVIDERS: Hospitalist; Physician Assistant Medical; Admitting Provider Internal Medicine; Emergency Provider Emergency Medicine; PCP Internal Medicine; Visit Provider Nurse Practitioner Acute Care
DX: A41.9 Sepsis, unspecified organism (principal); G93.41 Metabolic encephalopathy; J18.9 Pneumonia, unspecified organism; N39.0 Urinary tract infection, site not specified; J44.0 Chronic obstructive pulmonary disease with (acute) lower respiratory infection; F33.9 Major depressive disorder, recurrent, unspecified; R42 Dizziness and giddiness; Z20.822 Contact with and (suspected) exposure to COVID-19; Z86.711 Personal history of pulmonary embolism; Z85.850 Personal history of malignant neoplasm of thyroid; Z87.891 Personal history of nicotine dependence; Z91.041 Radiographic dye allergy status; Z79.84 Long term (current) use of oral hypoglycemic drugs; Z79.899 Other long term (current) drug therapy
CPT/HCPCS: 0241U; 36415; 70450; 71045; 80048; 80076; 81001; 82947; 83605; 83690; 83880; 84484; 85025; 85027; 87040; 87086; 93005; 97161; 99285; J0456; J0696; J1650

== ENCOUNTER 2022-11-16 08:25 | Observation (INO) | payer MEDICARE, OTHER, SELFPAY ==
--- NOTE | ~2022-11-16 | XR_ITS ---
EXAMINATION: XR CHEST CLINICAL INFORMATION: Shortness of breath COMPARISON: 11/01/2022 TECHNIQUE: Frontal view of the chest was obtained. FINDINGS: No acute finding. No failure or infiltrate. There is no effusion. The cardiac silhouette is felt to be comparable. The hilar structures do not appear pathologically enlarged. XR/XR chest 1V IMPRESSION: No acute finding.
--- NOTE | ~2022-11-16 | CT_ITS ---
EXAMINATION: CT ANGIOGRAM OF THE CHEST WITH AND WITHOUT CONTRAST (CT PULMONARY ANGIOGRAM FOR PE) CLINICAL INFORMATION: Reason for Exam Exertional dyspnea. Tachycardia. History of PE COMPARISON: VQ scan 11/07/[address] chest 12/11/2019 TECHNIQUE: Prior to contrast administration, noncontrast localization images were obtained. Subsequently, multidetector volumetric imaging was performed from the thoracic inlet to below the diaphragms following the administration of 65 mL Omnipaque 350 intravenous contrast. No contrast reaction reported Sagittal, coronal, and MIP oblique sagittal reformatted images were obtained on the CT workstation, uploaded to PACS, and reviewed. This CT examination was performed using dose optimization techniques as appropriate, variously including the following: *Automated exposure control *Adjustment of mA and/or kV according to patient size (this includes techniques or standardized protocols for targeted exams where dose is matched to indication/reason for exam; i.e. extremities or head) *Use of iterative reconstruction technique Total exam dose-length product 334 mGy-cm FINDINGS: QUALITY OF STUDY/CONTRAST BOLUS: Satisfactory. PULMONARY ARTERIES: There are right lower lobe segmental pulmonary emboli present. No other emboli are seen. THORACIC AORTA: No aneurysm or dissection. LUNG: The lungs are hypoinflated. A few scattered bullae are seen. Bibasilar atelectasis is present. A few scattered small pulmonary nodules are seen unchanged from prior (for example 3 mm right upper lobe (6:133 compare prior 5:182). No new worrisome lung masses are seen. PLEURA: No pleural effusion or pneumothorax. MEDIASTINUM: Normal heart size. No pericardial effusion. No hilar or mediastinal lymphadenopathy. No evidence of septal bowing or right heart strain. CORONARY ARTERY CALCIFICATION: Present CHEST WALL/AXILLA: No axillary or internal mammary lymphadenopathy. OSSEOUS STRUCTURES: No acute or suspicious osseous abnormality. UPPER ABDOMEN: Unremarkable. No reflux of contrast into the hepatic veins to suggest elevated right heart pressures. CT/CT angio chest PE protocol IMPRESSION: Right lower lobe segmental pulmonary emboli without evidence of right heart strain. VTE: positive.
[2022-11-16 08:37] VITALS: BP 153/85; PULSE 90; RESP 14; TEMP 36.8; O2SAT 98; BMI 36.2
--- NOTE | 2022-11-16 08:49 | ED_ITS ---
HPI - Chest Pain General Chief Complaint: Chest Pain Stated Complaint: Chest Pain Time Seen by Provider: 11/16/22 08:27 Source: patient Mode of arrival: wheelchair History of Present Illness HPI narrative: 62-year-old female with a past medical history of HLD, diabetes, HTN, vitamin-D deficiency, depression, PE no longer on anticoagulation, thyroid CA s/p partial thyroidectomy, recently discharged from our facility on 11/07/2022 for sepsis secondary to CAP and UTI presenting to the ED sent in by Oncology for noted tachycardia in the office [employer]. Patient reports intermittent CP, exertional dyspnea, generalized fatigue/weakness, & lightheadedness worsening over the past few days. Denies fall, headache, abdominal pain, nausea/vomiting, pedal edema, calf pain MD complaint: chest pain Related Data Home Medications Medication Instructions Recorded Confirmed trospium 60 mg capsule,extended 60 mg PO DAILY 01/23/22 11/16/22 release 24 hr cholecalciferol (vitamin D3) 1,250 1,250 mcg PO SALAZAR 11/01/22 11/16/22 mcg (50,000 unit) capsule metformin 500 mg tablet 500 mg PO DAILY 11/01/22 11/16/22 loratadine 10 mg tablet 10 mg PO DAILY 11/16/22 11/16/22 Previous Rx's Medication Instructions Recorded fluoxetine 20 mg capsule 40 mg PO DAILY #60 caps 07/10/22 trazodone 100 mg tablet 100 mg PO BEDTIME #30 caps 08/11/22 omeprazole 40 mg capsule,delayed 40 mg PO BID #60 caps 09/07/22 release atorvastatin 40 mg tablet 40 mg PO DAILY #90 tabs 11/04/22 amlodipine 2.5 mg tablet 2.5 mg PO DAILY #30 tabs 11/07/22 Allergies Allergy/AdvReac Type Severity Reaction Status Date / Time Iodinated Contrast Media AdvReac Intermediate Rash Verified 10/06/22 04:03 [IV CONTRAST] Review of Systems Review of Systems: Constitutional: No Fever, No Chills, + Fatigue, No Malaise ENT/Mouth: No Ear Pain, No Nasal Congestion, No sore throat, No Rhinorrhea, No Swallowing Difficulty Eyes: No Eye Pain, No Swelling, No Redness, No Vision Changes Cardiovascular: +intermittent Chest Pain, No SOB, + Dyspnea on Exertion, No Orthopnea, No Edema, + Palpitations Respiratory: No Cough, No Sputum, No Dyspnea Gastrointestinal: No Nausea, No Vomiting, No Diarrhea, No Constipation, No Abdom inal pain Genitourinary: No irregular bleeding, No Dysuria, No Urinary Frequency, No Hematuria, No Flank Pain Musculoskeletal: No joint pain, No Myalgias, No Joint Swelling Skin: No Skin Lesions, No rash Neuro: + Weakness, No Numbness, No Paresthesias, No Loss of Consciousness, + lightheaded, No Headache Yes all other systems are reviewed and are negative Constitutional: Constitutional: Reports as per HPI Neurologic: Denies Abnormal speech present [facility] Past Medical History Attestation statement: The following information was validated with the patient. Medical History Arthritis of first metatarsophalangeal (MTP) joint of left foot Calcaneal spur of left foot COPD (chronic obstructive pulmonary disease) COVID-19 vaccine series completed Depression, major, recurrent, in complete remission Deviated nasal septum Diabetes mellitus with microalbuminuria, without long-term current use of insulin Dyslipidemia Essential hypertension GERD (gastroesophageal reflux disease) Herpes zoster History of COVID-19 History of pulmonary embolism History of thyroid cancer Left shoulder tendinitis Vitamin B12 deficiency Vitamin D deficiency Surgical History H/O spinal fusion History of cervical spinal surgery History of colonoscopy History of partial thyroidectomy History of shoulder surgery History of surgery History of tubal ligation Hx of left breast biopsy Family History Family History Father Alcoholism Mother HTN (hypertension) Hyperlipidemia CVD (cardiovascular disease) Sister Hyperlipidemia Alcoholism Substance use disorder Brother No problems noted. Sister No problems noted. Sister No problems noted. Sister No problems noted. Daughter No problems noted. Daughter No problems noted. Social History Social History Household Members: Spouse Housing: House Do you presently have visiting nurse or other home services: Yes Alcohol intake: never Patient Tobacco Use Status: Former Tobacco user Quit Date: 20 yrs ago Years Smoked: 4 yrs Smoked in Last 30 Days: No e-Cigarette/Vaping Use: Never Used Second Hand Smoke Exposure: No Advance Directives: No Advance Directives Information Provided: Yes service: No Current occupational status: disabled Cognitive needs: No Hearing needs: No Vision needs: Yes Physical Exam Vital Signs: Vital Signs: Last Vital Signs Temp 98.2 F 11/16/22 08:37 Pulse 81 11/16/22 11:47 Resp 14 11/16/22 11:47 BP 148/89 H 11/16/22 11:47 Pulse Ox 94 11/16/22 11:47 O2 Del Method 11/16/22 11:47 BMI result Body Mass Index 36.2 Const: General: cooperative, healthy appearing, comfortable and no acute distress Orientation/consciousness: patient oriented x3 Limitations: no limitations HEENT: Head: Yes normal to inspection and Yes atraumatic Ears: hearing grossly normal bilaterally General nose exam: Normal external nose present Face and sinus: Yes normal facial exam Eyes: General: appearance normal, both eyes and all related structures Pupils: Equal, round and reactive pupils present EOM: EOMs intact bilaterally Neck: Neck: Yes normal visual inspection and Yes no meningeal signs Resp: Effort & Inspection: normal respiratory effort and no respiratory distress Auscultation: clear to auscultation bilaterally, no rhonchi and no wheezes Cardio: Rate: regular rate Heart sounds: S1 normal heart sound present and S2 normal heart sound present GI: Inspection: Yes normal to inspection Palpation (GI): Soft to palpation, nontender, no guarding and not rigid : General: Yes no CVA tenderness Back/Spine/Pelvis: Back: no CVA tenderness Skin: Rashes: no rashes Wounds: no wounds Neuro: General: patient oriented x3, tone normal, moves all extremities, no meningeal signs, no focal motor deficits and CN's II-XI intact bilaterally Cranial nerves: Yes CN's II-XII intact bilaterally, Yes Equal, round and reactive pupils present and Yes Bilaterally intact EOM present Cognition (Neuro): normal cognition Speech: No Abnormal speech present Motor exam (neuro): 5/5 motor strength present throughout and Pronator motor function not present Coordination: [id number] test normal Romberg Test: Negative Extrem: General: Yes normal to inspection, Yes no pedal edema and Yes no calf tenderness Course Course Course Narrative: -1114--no leukocytosis. Troponin negative. Labs reassuring. -COVID and influenza negative XR chest 1V IMPRESSION: No acute finding. 1134--CT angio chest PE protocol IMPRESSION: Right lower lobe segmental pulmonary emboli without evidence of right heart strain. VTE: positive. ? >> re-consult Dr. Cotto who recommended starting Eliquis. Case discussed with Dr. Sanchez, Plan to admit for further management Medications Administered Discontinued Medications Generic Name Dose Route Start Last Admin Trade Name Arvind PRN Reason Stop Dose Admin Diphenhydramine HCl 50 mg 11/16/22 08:49 11/16/22 09:27 Diphenhydramine Hcl 50 Mg/Ml Vial IVPUSH 11/16/22 08:50 50 mg ONCE ONE Administration Sodium Chloride 250 mls @ 999 mls/hr 11/16/22 09:00 11/16/22 10:32 Ns IV 11/16/22 09:15 Infused .Q16M RAMON Infusion Iohexol 100 ml 11/16/22 10:11 11/16/22 10:12 Iohexol 350 Mg/Ml 100 Ml Infus..Btl IV 11/16/22 10:12 65 ml ONCE ONE Administration Methylprednisolone Sodium Succinate 40 mg 11/16/22 08:49 11/16/22 09:27 Methylprednisolone Sod Succ 40 Mg/Ml Vial IVPUSH 11/16/22 08:50 40 mg ONCE ONE Administration Medical Decision Making Medical Decision Making MDM Narrative: 62-year-old female with a past medical history of HLD, diabetes, HTN, vitamin-D deficiency, depression, PE no longer on anticoagulation, thyroid CA s/p partial thyroidectomy, recently discharged from our facility on 11/07/2022 for sepsis secondary to CAP and UTI presenting to the ED sent in by Oncology for noted tachycardia in the office [employer]. Patient reports intermittent CP, exertional dyspnea, generalized fatigue/weakness, & lightheadedness worsening over the past few days. On exam LE tachycardic, NAD, nontoxic appearing, lungs CTA, abdomen soft/nontender, no focal deficits. Concern for atypical ACS vs pulmonary embolism vs CHF vs continued/recurrent pneumonia. Rule out metabolic/infectious etiologies. Low suspicion for severe sepsis at this time. Unlikely dissection Plan: EKG, labs, UA, CXR, CTA, orthostatics, ambulating pulse ox, re-evaluate, +/-admission Please refer to course for remaining clinical decision making, interpretation of labs/imaging results, and discussions with consultants and/or family members. Differential Diagnosis Differential Diagnoses: The differential diagnosis associated with the presentation includes as above Admission/Observation Consideration of admission/observation: Escalation of care including admission/observation considered Consult Healthcare Provider Management of the patient was discussed with: Hospitalist and Time Stamp Assembler Lab Data MDM Lab Attestation statement: I reviewed the patient's lab results. 11/16/22 09:15 11/16/22 09:15 Labs: Lab Results 11/16/22 11/16/22 11/16/22 Range/Units 09:09 09:09 09:15 WBC 5.4 (4.8-10.8) X10*3/uL RBC 4.27 (4.20-5.50) X10*6/uL Hgb 12.1 (12.0-16.0) g/dl Hct 36.5 L (37.0-47.0) % MCV 85.5 (80.0-98.0) fL MCH 28.3 (27.0-33.0) pg MCHC 33.2 (31.0-35.0) g/dl RDW 14.4 (11.0-16.0) % Plt Count 342 D (160-400) X10*3/uL MPV 9.3 L (9.4-12.3) fL Immature Gran % (Auto) 0.4 (0.0-0.4) % Neut % (Auto) 48.1 (45-73) % Lymph % (Auto) 41.5 H (20-40) % [place] % (Auto) 8.3 (2-11) % Eos % (Auto) 1.1 (0-4) % Baso % (Auto) 0.6 (0-2) % Lymph # (Auto) 2.3 (1.2-4.9) X10*3/uL [place] # (Auto) 0.5 (0.1-1.2) X10*3/uL Eos # (Auto) 0.1 (0.0-0.4) X10*3/uL Baso # (Auto) 0.0 (0.0-0.2) X10*3/uL Abs Immat Gran (auto) 0.02 (0.00-0.03) X10*3/uL Absolute Neuts (auto) 2.6 (2.0-8.3) x10*3/uL Absolute Nucleated RBC 0.000 (0.0-0.012) X10*3/uL Nucleated RBC % (auto) 0.0 (0.0-0.2) /100WBC PT (10.0-13.1) SEC INR (0.9-1.1) APTT (26.0-36.4) SEC Sodium (135-145) mmol/L Potassium (3.3-5.1) mmol/L Chloride (96-108) mmol/L Carbon Dioxide (22-29) mmol/L Anion Gap (12-20) BUN (9-16) mg/dL Creatinine (0.5-1.4) mg/dL Estim Creat Clear Calc Estimated GFR Random Glucose (60-115) mg/dL Calcium (8.4-10.2) mg/dL Magnesium (1.6-2.6) mg/dL Total Bilirubin (0.0-1.0) mg/dL Direct Bilirubin (0.0-0.5) mg/dL AST (5-31) U/L ALT (0-31) U/L Alkaline Phosphatase (39-117) U/L Troponin I High Sens (<3.5-17.0) ng/L B-Natriuretic Peptide (<100) pg/mL Total Protein (6.5-8.0) g/dL Albumin (3.5-5.0) g/dL COVID-19 (JHONATHAN) Negative (Negative) COVID-19 Clin Com See Note Influenza Type A (YOGESH) Negative (Negative) Influenza Type B (YOGESH) Negative (Negative) Influenza A & B Note See Note 11/16/22 11/16/22 11/16/22 Range/Units 09:15 09:15 09:15 WBC (4.8-10.8) X10*3/uL RBC (4.20-5.50) X10*6/uL Hgb (12.0-16.0) g/dl Hct (37.0-47.0) % MCV (80.0-98.0) fL MCH (27.0-33.0) pg MCHC (31.0-35.0) g/dl RDW (11.0-16.0) % Plt Count (160-400) X10*3/uL MPV (9.4-12.3) fL Immature Gran % (Auto) (0.0-0.4) % Neut % (Auto) (45-73) % Lymph % (Auto) (20-40) % [place] % (Auto) (2-11) % Eos % (Auto) (0-4) % Baso % (Auto) (0-2) % Lymph # (Auto) (1.2-4.9) X10*3/uL [place] # (Auto) (0.1-1.2) X10*3/uL Eos # (Auto) (0.0-0.4) X10*3/uL Baso # (Auto) (0.0-0.2) X10*3/uL Abs Immat Gran (auto) (0.00-0.03) X10*3/uL Absolute Neuts (auto) (2.0-8.3) x10*3/uL Absolute Nucleated RBC (0.0-0.012) X10*3/uL Nucleated RBC % (auto) (0.0-0.2) /100WBC PT 11.5 (10.0-13.1) SEC INR 1.0 (0.9-1.1) APTT 28.9 (26.0-36.4) SEC Sodium 140 (135-145) mmol/L Potassium 4.5 D (3.3-5.1) mmol/L Chloride 105 (96-108) mmol/L Carbon Dioxide 26 (22-29) mmol/L Anion Gap 14 (12-20) BUN 12 (9-16) mg/dL Creatinine 0.98 (0.5-1.4) mg/dL Estim Creat Clear Calc 62.7 Estimated GFR 58 Random Glucose 113 (60-115) mg/dL Calcium 9.2 D (8.4-10.2) mg/dL Magnesium 1.8 (1.6-2.6) mg/dL Total Bilirubin 1.1 H (0.0-1.0) mg/dL Direct Bilirubin 0.3 (0.0-0.5) mg/dL AST 19 (5-31) U/L ALT 28 (0-31) U/L Alkaline Phosphatase 89 (39-117) U/L Troponin I High Sens 4.2 (<3.5-17.0) ng/L B-Natriuretic Peptide (<100) pg/mL Total Protein 6.8 (6.5-8.0) g/dL Albumin 4.0 (3.5-5.0) g/dL COVID-19 ([facility]ONATHAN) (Negative) COVID-19 Clin Com Influenza Type A (YOGESH) (Negative) Influenza Type B (YOGESH) (Negative) Influenza A & B Note 11/16/22 Range/Units 09:15 WBC (4.8-10.8) X10*3/uL RBC (4.20-5.50) X10*6/uL Hgb (12.0-16.0) g/dl Hct (37.0-47.0) % MCV (80.0-98.0) fL MCH (27.0-33.0) pg MCHC (31.0-35.0) g/dl RDW (11.0-16.0) % Plt Count (160-400) X10*3/uL MPV (9.4-12.3) fL Immature Gran % (Auto) (0.0-0.4) % Neut % (Auto) (45-73) % Lymph % (Auto) (20-40) % [place] % (Auto) (2-11) % Eos % (Auto) (0-4) % Baso % (Auto) (0-2) % Lymph # (Auto) (1.2-4.9) X10*3/uL [place] # (Auto) (0.1-1.2) X10*3/uL Eos # (Auto) (0.0-0.4) X10*3/uL Baso # (Auto) (0.0-0.2) X10*3/uL Abs Immat Gran (auto) (0.00-0.03) X10*3/uL Absolute Neuts (auto) (2.0-8.3) x10*3/uL Absolute Nucleated RBC (0.0-0.012) X10*3/uL Nucleated RBC % (auto) (0.0-0.2) /100WBC PT (10.0-13.1) SEC INR (0.9-1.1) APTT (26.0-36.4) SEC Sodium (135-145) mmol/L Potassium (3.3-5.1) mmol/L Chloride (96-108) mmol/L Carbon Dioxide (22-29) mmol/L Anion Gap (12-20) BUN (9-16) mg/dL Creatinine (0.5-1.4) mg/dL Estim Creat Clear Calc Estimated GFR Random Glucose (60-115) mg/dL Calcium (8.4-10.2) mg/dL Magnesium (1.6-2.6) mg/dL Total Bilirubin (0.0-1.0) mg/dL Direct Bilirubin (0.0-0.5) mg/dL AST (5-31) U/L ALT (0-31) U/L Alkaline Phosphatase (39-117) U/L Troponin I High Sens (<3.5-17.0) ng/L B-Natriuretic Peptide < 10 (<100) pg/mL Total Protein (6.5-8.0) g/dL Albumin (3.5-5.0) g/dL COVID-19 (J[facility]ONATHAN) (Negative) COVID-19 Clin Com Influenza Type A (YOGESH) (Negative) Influenza Type B (YOGESH) (Negative) Influenza A & B Note Independent Interpretation I performed an independent interpretation of an: EKG Interpretation: EKG my interpretation normal sinus rhythm at rate of 87. QRS 84. No STEMI. Radiology Impression Discussion of test interpretation with radiology: I have reviewed the radiologist's reading. External Record Review External record reviewed: Outpatient record, Prior outpatient labs, Prior outpatient radiology, Primary care record and Outside ED record Critical Care Time Critical Care Time Critical Care Time: Yes Total Critical Care Time: 40 Attestation: I have personally provided critical care time exclusive of time spent on separately billable procedures. Time includes review of lab data, radiology results, discussion with consultants, and monitoring for potential decompensation. Intervention performed as documented. Discharge Plan Discharge Clinical Impression: Pulmonary embolism Patient Disposition: Admitted As Inpatient
--- NOTE | 2022-11-16 08:49 | ECG_ITS ---
Test Reason : CHEST PAIN Blood Pressure : / mmHG Vent. Rate : 087 BPM Atrial Rate : 087 BPM P-R Int : 190 ms QRS Dur : 084 ms QT Int : 416 ms P-R-T Axes : 043 027 046 degrees QTc Int : 500 ms Normal sinus rhythm Nonspecific T wave abnormality Prolonged QT Abnormal ECG When compared with ECG of 01-NOV-2022 20:16, No significant change was found Referred By: Antonia Ashford Electronically Signed By:YAKOV ROBERT
[2022-11-16 09:24] LABS: MANUAL DIFF FLAG NO
[2022-11-16 09:26] LABS: Basophils Percent Auto 0.6 % (0-2); Eosinophils Absolute Auto 0.1 X10*3/uL (0.0-0.4); Eosinophils Percent Auto 1.1 % (0-4); Hematocrit 36.5 % (37.0-47.0); Hemoglobin 12.1 g/dl (12.0-16.0); Imm Gran Abs Auto 0.02 X10*3/uL (0.00-0.03); Imm Gran Pct Auto 0.4 % (0.0-0.4); Lymphocytes Absolute Auto 2.3 X10*3/uL (1.2-4.9); Lymphocytes Percent Auto 41.5 % (20-40); Mean Corpuscular HGB Conc 33.2 g/dl (31.0-35.0); Mean Corpuscular Hemoglobin 28.3 pg (27.0-33.0); Mean Corpuscular Volume 85.5 fL (80.0-98.0); Mean Platelet Volume 9.3 fL (9.4-12.3); Monocytes Absolute Auto 0.5 X10*3/uL (0.1-1.2); Monocytes Percent Auto 8.3 % (2-11); Neutrophils Absolute Auto 2.6 x10*3/uL (2.0-8.3); Neutrophils Percent Auto 48.1 % (45-73); Platelet Count 342 X10*3/uL (160-400); Red Blood Count 4.27 X10*6/uL (4.20-5.50); Red Cell Distribution Width 14.4 % (11.0-16.0); White Blood Count 5.4 X10*3/uL (4.8-10.8)
[2022-11-16] MEDS: diphenhydrAMINE HCL 50 MG/ML VIAL IVPUSH (09:27)
[2022-11-16] MEDS: methylPREDNISolone Sod Succ 40 MG/ML VIAL IVPUSH (09:27)
[2022-11-16] MEDS: 0.9 % Sodium Chloride 250 ML 999 ML IV (09:30)
[2022-11-16 09:31] LABS: Prothrombin Time 11.5 SEC (10.0-13.1)
[2022-11-16 09:39] VITALS: BP 158/96; PULSE 84; RESP 16
[2022-11-16 09:51] LABS: Alanine Aminotransferase 28 U/L (0-31); Alkaline Phosphatase 89 U/L (39-117); Anion Gap 14 (12-20); Aspartate Amino Transferase 19 U/L (5-31); Bilirubin Direct 0.3 mg/dL (0.0-0.5); Bilirubin Total 1.1 mg/dL (0.0-1.0); Blood Urea Nitrogen 12 mg/dL (9-16); Calcium 9.2 mg/dL (8.4-10.2); Carbon Dioxide 26 mmol/L (22-29); Chloride 105 mmol/L (96-108); Creatinine Clr Calc Pharmacy 62.7; Estimated Glomerular Filt Rate 58; Glucose Random 113 mg/dL (60-115); Magnesium 1.8 mg/dL (1.6-2.6); Potassium 4.5 mmol/L (3.3-5.1); Sodium 140 mmol/L (135-145); Total Protein 6.8 g/dL (6.5-8.0)
[2022-11-16 09:52] LABS: IDNOW Serial# 16C4AD1C
[2022-11-16 09:53] LABS: COVID-19 Test Negative (Negative); IDNOW Serial# BCCEAD1C; Influenza A Negative (Negative); Influenza B2 Negative (Negative)
[2022-11-16 09:55] LABS: B Type Natriuretic Peptide < 10 pg/mL (<100)
[2022-11-16 09:58] LABS: Troponin-I High Sensitivity 4.2 ng/L (<3.5-17.0)
[2022-11-16] MEDS: iohexoL 350 MG/ML 100 ML INFUS..BTL IV (10:12)
[2022-11-16 11:43] LABS: Partial Thromboplastin Time 28.9 SEC (26.0-36.4)
[2022-11-16 11:47] VITALS: BP 148/89; PULSE 81; RESP 14; O2SAT 94
[2022-11-16 12:10] LABS: Appearance Urine Clear; Color Urine Yellow; Glucose Urine UA Negative (Negative); Leukocyte Esterase Urine Negative (Negative); Nitrite Urine Negative (Negative); Specific Gravity - Urine 1.025 (1.005-1.025); Urine Blood Negative (Negative); Urine Ketones Negative (Negative); Urine Protein Negative (Neg-Trace)
--- NOTE | 2022-11-16 12:11 | P.HPHOSP_ITS ---
History of Present Illness Date of Service: 11/16/22 Attending physician on admission: Virginia Hayes Chief Complaint: SOB, palpitations Pt is a 62-year-old female with a PMH significant for?HLD, HTN, kmb-mcvfsbj-kyatjnlyk diabetes, use the depression, hx of bilateral PE on 07/04/2013,hx of right calf DVT on 07/02/2014, and hx of thyroid cancer who presents to the ED with chest pain and palpitations. Pt recently discharged form hospital on 11/07/22 for sepsis secondary to CAP and UTI. Earlier today pt was seen by Dr. Cotto at f/u hematology appointment, was sent to ED d/t chest pain and tachycardia for cardiac and PE workup. Pt states she has felt off since discharge which she ascribed to lingering effects of pneumonia. Has felt generalized weakness and fatigue, dyspnea with exertion for the past week. Has experienced intermittent chest pain, which she describes as a sharp, squeezing pain centered on the left side of her chest. Patient has been keeping track of her blood pressures which had been elevated and noted elevated heart rate over 100 for past 3 days. Says she occasionally feels palpitations and lightheadedness, especially with exertion. Denies calf pain, lower leg swelling. No fever, nausea, vomiting. Denies abdominal pain. Of note, pt was initially on warfarin but discontinued when her INR could not be controlled. Pt has had significant negative hematology workup for hypercoagulable state. In the ED pt was tachycardic at 101. Labs were unremarkable. CXR showed no acute cardiopulmonary process. CTA of chest found right lower lobe segmental pulmonary emboli without evidence of right heart strain. EKG demonstrated normal sinus rate with prolonged QT of 500 and no evidence of ST elevations or depressions. Pt was treated with Solu-Medrol, diphenhydramine, IVF, and Eliquis 10mg. Pt will be admitted to observation on telemetry for treatment and further evaluation of right lower lobe pulmonary emboli. Review of Systems Review of Systems: Chest pain Shortness of breath with exertion Generalized weakness, fatigue Palpitations Headache Denies leg swelling, tenderness Yes all other systems are reviewed and are negative [facility] Medical History Arthritis of first metatarsophalangeal (MTP) joint of left foot Calcaneal spur of left foot COPD (chronic obstructive pulmonary disease) COVID-19 vaccine series completed Depression, major, recurrent, in complete remission Deviated nasal septum Diabetes mellitus with microalbuminuria, without long-term current use of insulin Dyslipidemia Essential hypertension GERD (gastroesophageal reflux disease) Herpes zoster History of COVID-19 History of pulmonary embolism History of thyroid cancer Left shoulder tendinitis Vitamin B12 deficiency Vitamin D deficiency Family History Father Alcoholism Mother HTN (hypertension) Hyperlipidemia CVD (cardiovascular disease) Sister Hyperlipidemia Alcoholism Substance use disorder Brother No problems noted. Sister No problems noted. Sister No problems noted. Sister No problems noted. Daughter No problems noted. Daughter No problems noted. Surgical History H/O spinal fusion History of cervical spinal surgery History of colonoscopy History of partial thyroidectomy History of shoulder surgery History of surgery History of tubal ligation Hx of left breast biopsy Social History Household Members: Spouse Housing: House Do you presently have visiting nurse or other home services: Yes Alcohol intake: never Patient Tobacco Use Status: Former Tobacco user Quit Date: 20 yrs ago Years Smoked: 4 yrs Smoked in Last 30 Days: No e-Cigarette/Vaping Use: Never Used Second Hand Smoke Exposure: No Advance Directives: No Advance Directives Information Provided: Yes service: No Current occupational status: disabled Cognitive needs: No Hearing needs: No Vision needs: Yes Meds Allergies Allergy/AdvReac Type Severity Reaction Status Date / Time Iodinated Contrast Media AdvReac Intermediate Rash Verified 10/06/22 04:03 [IV CONTRAST] Active Medications: Current Medications Pharmacy Consult (Consult Rx Perform Med Rec) 1 each MISCELLANE ONCE STA Stop: 11/16/22 11:38 Home Medications Medication Instructions Recorded Confirmed Last Taken Type trospium 60 mg capsule,extended 60 mg PO DAILY 01/23/22 11/16/22 Unknown History release 24 hr cholecalciferol (vitamin D3) 1,250 1,250 mcg PO SALAZAR 11/01/22 11/16/22 Unknown History mcg (50,000 unit) capsule metformin 500 mg tablet 500 mg PO DAILY 11/01/22 11/16/22 Unknown History cetirizine 10 mg tablet 10 mg PO DAILY 11/16/22 11/16/22 11/16/22 History Physical Exam Vital Signs and Narrative: Vital Signs: Last Vital Signs Temp 98.2 F 11/16/22 08:37 Pulse 81 11/16/22 11:47 Resp 14 11/16/22 11:47 BP 148/89 H 11/16/22 11:47 Pulse Ox 94 11/16/22 11:47 O2 Del Method 11/16/22 11:47 BMI result Body Mass Index 36.2 Constitutional: Alert, in no acute distress. Mental Status: Oriented to person, place and time. Eyes: Pupils are equal, round, and reactive to light. Ear, Nose, and Throat: Oropharynx clear, mucous membranes moist. Ears and nose without deformities. Trachea midline. Respiratory: Clear to auscultation bilaterally. No wheezing, rales, or rhonchi. Cardiovascular: S1, S2 regular. No murmurs, rubs, or gallops. Gastrointestinal: Abdomen soft, non-tender, non-distended. Normal bowel sounds. Neurologic: Cranial nerves II-XII are grossly intact bilaterally. No focal neurological deficits. Moves all extremities spontaneously. Skin: No rashes or lesions noted. Musculoskeletal: No cyanosis or clubbing. Extremities: No edema. No lower leg calf tenderness. Psychiatric: Normal mood and affect. Results Labs 11/16/22 09:15 11/16/22 09:15 Labs: Laboratory Results - last 24 hr 11/16/22 11/16/22 11/16/22 09:09 09:09 09:15 MCV 85.5 MCH 28.3 MCHC 33.2 RDW 14.4 Plt Count 342 D MPV 9.3 L Immature Gran % (Auto) 0.4 Neut % (Auto) 48.1 Lymph % (Auto) 41.5 H [place] % (Auto) 8.3 Eos % (Auto) 1.1 Baso % (Auto) 0.6 Lymph # (Auto) 2.3 [place] # (Auto) 0.5 Eos # (Auto) 0.1 Baso # (Auto) 0.0 Abs Immat Gran (auto) 0.02 Absolute Neuts (auto) 2.6 Absolute Nucleated RBC 0.000 Nucleated RBC % (auto) 0.0 PT INR APTT Anion Gap Estim Creat Clear Calc Estimated GFR Random Glucose Calcium Magnesium Total Bilirubin Direct Bilirubin AST ALT Alkaline Phosphatase Troponin I High Sens B-Natriuretic Peptide Total Protein Albumin COVID-19 (JHONATHAN) Negative COVID-19 Clin Com See Note Influenza Type A (YOGESH) Negative Influenza Type B (YOGESH) Negative Influenza A & B Note See Note 11/16/22 11/16/22 11/16/22 09:15 09:15 09:15 MCV MCH MCHC RDW Plt Count MPV Immature Gran % (Auto) Neut % (Auto) Lymph % (Auto) [place] % (Auto) Eos % (Auto) Baso % (Auto) Lymph # (Auto) [place] # (Auto) Eos # (Auto) Baso # (Auto) Abs Immat Gran (auto) Absolute Neuts (auto) Absolute Nucleated RBC Nucleated RBC % (auto) PT 11.5 INR 1.0 APTT 28.9 Anion Gap 14 Estim Creat Clear Calc 62.7 Estimated GFR 58 Random Glucose 113 Calcium 9.2 D Magnesium 1.8 Total Bilirubin 1.1 H Direct Bilirubin 0.3 AST 19 ALT 28 Alkaline Phosphatase 89 Troponin I High Sens 4.2 B-Natriuretic Peptide Total Protein 6.8 Albumin 4.0 COVID-19 (JHONATHAN) COVID-19 Clin Com Influenza Type A (YOGESH) Influenza Type B (YOGESH) Influenza A & B Note 11/16/22 09:15 MCV MCH MCHC RDW Plt Count MPV Immature Gran % (Auto) Neut % (Auto) Lymph % (Auto) [place] % (Auto) Eos % (Auto) Baso % (Auto) Lymph # (Auto) [place] # (Auto) Eos # (Auto) Baso # (Auto) Abs Immat Gran (auto) Absolute Neuts (auto) Absolute Nucleated RBC Nucleated RBC % (auto) PT INR APTT Anion Gap Estim Creat Clear Calc Estimated GFR Random Glucose Calcium Magnesium Total Bilirubin Direct Bilirubin AST ALT Alkaline Phosphatase Troponin I High Sens B-Natriuretic Peptide < 10 Total Protein Albumin COVID-19 (JHONATHAN) COVID-19 Clin Com Influenza Type A (YOGESH) Influenza Type B (YOGESH) Influenza A & B Note Imaging Radiologist's Impressions: Impressions Chest X-Ray 11/16/22 09:03 IMPRESSION: No acute finding. Chest CTA 11/16/22 10:31 IMPRESSION: Right lower lobe segmental pulmonary emboli without evidence of right heart strain. VTE: positive. Assessment and Plan (1) Pulmonary embolism: Status: Acute Plan Pt is a 62-year-old female with a PMH significant for?HLD, HTN, xzq-jrcaret-ruyixnxxq diabetes, use the depression, hx of bilateral PE on 07/04/2013,hx of right calf DVT on 07/02/2014, and hx of thyroid cancer who presents to the ED with chest pain and palpitations. Pt will be admitted to observation on telemetry for treatment and further evaluation of right lower lobe pulmonary emboli. Acute pulmonary emboli of the right lower low segment Pt with hx of DVT and prior bilateral PE, not on anticoagulation Recent one-week hospital stay for sepsis secondary to CAP and UTI, received L ovenox for DVT prophylaxis Initiate Eliquis 10mg qd, per hematology Admit to observation on telemetry Headache Pt complains of daily headache for past 2-3 weeks Acetaminophen p.r.n. Rql-bhiogbl-twjeoiwut diabetes Hold home meds SSI Depression Continue fluoxetine HTN Continue amlodipine HLD Continue atorvastatin DNR/DNI Attending:?Dr. Hayes DVT Prophylaxis: On Eliquis Pt will be admitted to observation on telemetry for treatment and further evaluation of right lower lobe pulmonary emboli. Time Spent With Patient Time: Total time managing care of this patient today ____ minutes. Quality Stroke Does the patient have a stroke diagnosis?: No VTE Prior VTE?: Yes VTE Risk Level:: Medical - moderate - high VTE Device Contraindication: Treatment Not Indicated VTE Drug Contraindication: N/A - Med Ordered
[2022-11-16] MEDS: Apixaban 5 MG TABLET 10 MG PO (12:27)
--- NOTE | 2022-11-16 13:37 | PHA.MEDREC ---
Pharmacy Consult ? Medication Reconciliation Pharmacy has completed the medication reconciliation.
[2022-11-16 14:43] VITALS: BP 147/80; PULSE 94; RESP 18; TEMP 36.2; O2SAT 97
[2022-11-16 15:51] LABS: Glucose, Whole Blood 190 mg/dL (60-115)
[2022-11-16] MEDS: Omeprazole 40 MG CAPSULE.DR PO (16:30)
[2022-11-16] MEDS: Insulin Lispro 100 UNIT/ML 3 ML VIAL SUBCUT ×2 (16:30→20:41)
[2022-11-16] MEDS: 0.9 % Sodium Chloride Flush 3 ML SYRINGE IVFLUSH (16:31)
[2022-11-16 19:26] VITALS: BP 120/60; PULSE 95; RESP 18; TEMP 36.6; O2SAT 95
[2022-11-16 19:31] LABS: Glucose, Whole Blood 197 mg/dL (60-115)
[2022-11-16] MEDS: traZODone HCL 100 MG TABLET PO (20:41)
[2022-11-16 23:25] VITALS: BP 107/74; PULSE 81; RESP 18; TEMP 37.1; O2SAT 98
[2022-11-17 03:29] VITALS: BP 111/65; PULSE 76; RESP 17; TEMP 36.6; O2SAT 98
[2022-11-17] MEDS: Omeprazole 40 MG CAPSULE.DR PO (05:28)
[2022-11-17 07:41] VITALS: BP 150/79; PULSE 97; RESP 20; TEMP 36.4; O2SAT 95
[2022-11-17 07:48] LABS: Glucose, Whole Blood 160 mg/dL (60-115)
[2022-11-17] MEDS: Insulin Lispro 100 UNIT/ML 3 ML VIAL SUBCUT (08:04)
[2022-11-17] MEDS: FLUoxetine HCl 20 MG CAPSULE 40 MG PO (08:05)
[2022-11-17] MEDS: Atorvastatin Calcium 40 MG TABLET PO (08:05)
[2022-11-17] MEDS: Apixaban 5 MG TABLET 10 MG PO (08:05)
[2022-11-17] MEDS: Loratadine 10 MG TABLET PO (08:05)
[2022-11-17] MEDS: 0.9 % Sodium Chloride Flush 3 ML SYRINGE IVFLUSH (08:05)
[2022-11-17] MEDS: amLODIPine Besylate 2.5 MG TABLET PO (08:05)
--- NOTE | 2022-11-17 08:32 | MHC.CM.PN ---
CM met with Patient at bedside and addressed VIDES with her, original was given to Patient and a copy has been placed on the chart. Patient lives in a house with her /HCP and she required no services nor DME SN[employer]. Home/self care is the goal and CM has initiated and will follow for dc planning.Patient has received Moderna/Covid vax x2 and her PCP is Dr. Flakita Calero.
--- NOTE | 2022-11-17 10:50 | PM.DS ---
DS: Providers Provider Date of Service: 11/17/22 Date of admission: 11/16/22 13:29 Primary care physician: Unknown Physician DS: Diagnosis Discharge Diagnosis (1) Pulmonary embolism: Status: Acute DS: Summary Hospital Course Hospital Course: Admission note HPI Pt is a 62-year-old female with a PMH significant for?HLD, HTN, yxm-ifsurqy-sqxkgnosj diabetes, use the depression, hx of bilateral PE on 07/04/2013,hx of right calf DVT on 07/02/2014, and hx of thyroid cancer who presents to the ED with chest pain and palpitations. Pt recently discharged form hospital on 11/07/22 for sepsis secondary to CAP and UTI. Earlier today pt was seen by Dr. Cotto at f/u hematology appointment, was sent to ED d/t chest pain and tachycardia for cardiac and PE workup. Pt states she has felt off since discharge which she ascribed to lingering effects of pneumonia. Has felt generalized weakness and fatigue, dyspnea with exertion for the past week. Has experienced intermittent chest pain, which she describes as a sharp, squeezing pain centered on the left side of her chest. Patient has been keeping track of her blood pressures which had been elevated and noted elevated heart rate over 100 for past 3 days. Says she occasionally feels palpitations and lightheadedness, especially with exertion. ? Denies calf pain, lower leg swelling. No fever, nausea, vomiting. Denies abdominal pain. Of note, pt was initially on warfarin but discontinued when her INR could not be controlled. Pt has had significant negative hematology workup for hypercoagulable state. In the ED pt was tachycardic at 101. Labs were unremarkable. CXR showed no acute cardiopulmonary process. CTA of chest found right lower lobe segmental pulmonary emboli without evidence of right heart strain. EKG demonstrated normal sinus rate with prolonged QT of 500 and no evidence of ST elevations or depressions. Pt was treated with Solu-Medrol, diphenhydramine, IVF, and Eliquis 10mg. Pt will be admitted to observation on telemetry for treatment and further evaluation of right lower lobe pulmonary emboli. Hospital course The patient was observed in the hospital with new diagnosis of pulmonary embolism. Started on full-dose Eliquis. Monitors in the hospital with no evidence of bleeding or difficulty breathing. Was able to ambulate on room air maintaining her oxygen. To be discharged home on Eliquis with a plan to follow-up with Hematology as outpatient Time Spent with Patient Time attestation: Total time managing care of this patient today ____ minutes. Discharge coordination time: Less than 30 minutes Quality: Safe Use of Opioids Does Pt have an Active Cancer Diagnosis on the Problem List?: No Quality: Stroke Does the patient have a stroke diagnosis?: No Physical Exam Vital Signs: Vital Signs: Last Vital Signs Temp 97.5 F 11/17/22 07:41 Pulse 97 11/17/22 07:41 Resp 20 11/17/22 07:41 BP 150/79 H 11/17/22 07:41 Pulse Ox 95 11/17/22 07:41 O2 Del Method 11/17/22 07:41 BMI result Body Mass Index 36.2 Const: Other: Constitutional : Awake, interactive, not in distress Neck : Normal inspection, Supple Cardiovascular : RRR, no JVP, no lower extremity edema Respiratory : good bilateral air entry, no crackles, wheezes or rhonchi Gastrointestinal: soft, lax, Normal bowel sounds, Non tender Skin : Warm, Dry Neurological : Alert & oriented x3, No focal deficit , CN 2-12 within normal DS: Data Data Completed and Pending Labs on day of discharge: Laboratory Results - last 24 hr 11/16/22 11/16/22 11/16/22 09:15 11:56 15:42 APTT 28.9 POC Glucose 190 H Urine Color Yellow Urine Appearance Clear Urine pH 7.0 Ur Specific [place] 1.025 Urine Protein Negative Urine Glucose (UA) Negative Urine Ketones Negative Urine Blood Negative Urine Nitrite Negative Ur Leukocyte Esterase Negative 11/16/22 11/17/22 19:24 07:44 APTT POC Glucose 197 H 160 H Urine Color Urine Appearance Urine pH Ur Specific [place] Urine Protein Urine Glucose (UA) Urine Ketones Urine Blood Urine Nitrite Ur Leukocyte Esterase Imaging CT scan - chest: Radiologist's impression: ITS Impressions Chest X-Ray 11/16/22 09:03 IMPRESSION: No acute finding. Chest CTA 11/16/22 10:31 IMPRESSION: Right lower lobe segmental pulmonary emboli without evidence of right heart strain. VTE: positive. Discharge Plan Discharge Patient Disposition: Home, Self-Care Discharge Diagnosis: Pulmonary Embolism Referrals: Physician,Unknown J [Primary Care Provider] - 1 Week Discharge Medications: New Lynnequis DVT-PE Treat 30D Start 5 mg (74 tabs) tablets,dose pack 5 mg PO BID Qty: 74 0RF Continued fluoxetine 20 mg capsule 40 mg PO DAILY Qty: 60 5RF trazodone 100 mg tablet 100 mg PO BEDTIME Qty: 30 3RF omeprazole 40 mg capsule,delayed release(DR/EC) 40 mg PO BID Qty: 60 3RF atorvastatin 40 mg tablet 40 mg PO DAILY Qty: 90 1RF cetirizine 10 mg Tablet 10 mg PO DAILY metformin 500 mg tablet 500 mg PO DAILY cholecalciferol (vitamin D3) 1,250 mcg (50,000 unit) capsule 1,250 mcg PO MO amlodipine 2.5 mg Tablet 2.5 mg PO DAILY Qty: 30 0RF Protocol: Hold for SBP< HOLD for SBP < : 90 trospium 60 mg capsule,extended release 24hr 60 mg PO DAILY Discharge Orders: Discharge Order (Routine); Ordered 11/17/22 Ordered By: Virginia Hayes Diet: Advance to usual diet Activity on Discharge: As tolerated Stand Alone Forms: Patient Portal Discharge page Care Plan Goals: Read below Health Concerns: Read below Plan of Treatment: Read below Assessment: You were found to have acute lung clot. Started on Eliquis. Follow-up with Dr. Cotto as outpatient Start Eliquis 10 mg twice daily for the next 6 days then decrease to 5 mg twice daily.
--- NOTE | 2022-11-17 10:52 | MHC.CM.PN ---
Patient has been medically cleared for dc to home today, self care.
[2022-11-17 10:59] LABS: Glucose, Whole Blood 143 mg/dL (60-115)
[2022-11-17 11:38] VITALS: BP 153/73; PULSE 79; RESP 19; TEMP 36.7; O2SAT 95
== END 2022-11-17 15:32 | disposition home or self-care (01) ==
LOC: HO.ED 12:06 → HO.EDOVER 13:46 → HO.IMC 13:46
PROVIDERS: Physician Assistant; Admitting Provider Student in an Organized Health Care Education/Training Program; Emergency Provider Emergency Medicine Emergency Medical Services; PCP Internal Medicine; Visit Provider Student in an Organized Health Care Education/Training Program
DX: I26.99 Other pulmonary embolism without acute cor pulmonale (principal); I10 Essential (primary) hypertension; E78.5 Hyperlipidemia, unspecified; F32.A Depression, unspecified; E55.9 Vitamin D deficiency, unspecified; R00.0 Tachycardia, unspecified; Z79.01 Long term (current) use of anticoagulants; R07.9 Chest pain, unspecified; Z20.822 Contact with and (suspected) exposure to COVID-19
CPT/HCPCS: 36415; 71045; 71275; 80048; 80076; 81003; 82947; 83735; 83880; 84484; 85025; 85610; 85730; 87502; 87635; 93005; 96361; 96372; 96374; 96375; 99222; 99285; J1200; J2920; Q9967

== ENCOUNTER 2022-12-08 13:06 | Outpatient (REF) | payer MEDICARE, OTHER, SELFPAY ==
[2022-12-08 15:06] LABS: Alanine Aminotransferase 19 U/L (0-31); Albumin Level 4.1 g/dL (3.5-5.0); Alkaline Phosphatase 89 U/L (39-117); Amylase 25 U/L (28-100); Anion Gap 12 (12-20); Aspartate Amino Transferase 16 U/L (5-31); Bilirubin Direct 0.2 mg/dL (0.0-0.5); Bilirubin Total 0.8 mg/dL (0.0-1.0); Blood Urea Nitrogen 11 mg/dL (9-16); Calcium 9.3 mg/dL (8.4-10.2); Carbon Dioxide 25 mmol/L (22-29); Chloride 107 mmol/L (96-108); Estimated Glomerular Filt Rate > 60; Glucose Random 114 mg/dL (60-115); Lipase 17 U/L (8-78); Potassium 4.1 mmol/L (3.3-5.1); Sodium 140 mmol/L (135-145); Total Protein 6.9 g/dL (6.5-8.0)
== END 2022-12-08 13:07 | disposition home or self-care (01) ==
LOC: HO.LAB 13:06
PROVIDERS: PCP Internal Medicine; Referring Provider Internal Medicine; Visit Provider Nurse Practitioner Family
DX: I10 Essential (primary) hypertension (principal); I26.99 Other pulmonary embolism without acute cor pulmonale; R07.89 Other chest pain; R10.9 Unspecified abdominal pain; E11.9 Type 2 diabetes mellitus without complications; J18.9 Pneumonia, unspecified organism; R94.31 Abnormal electrocardiogram [ECG] [EKG]; Z79.01 Long term (current) use of anticoagulants; Z87.891 Personal history of nicotine dependence; Z79.899 Other long term (current) drug therapy
CPT/HCPCS: 36415; 80048; 80076; 82150; 83690; 83735; 93005; 99212

== ENCOUNTER → 2022-12-12 07:49 | Outpatient (REF) | payer MEDICARE, OTHER, SELFPAY ==
--- NOTE | 2022-12-12 07:52 | CA_ITS ---
Transthoracic Echocardiogram Patient (Last, First, Middle): Ya Cameron B Gender: Female Date of : 1960 Age: 62 Procedure Date: 12/12/2022 Procedure Type: Transthoracic Echocardiogram Location: OP Height: 157.48 cm Weight: 90.27 kg BSA: 1.91 m2 Heart Rate: 64 bpm BP: 120 / 80 mmHg Allied Health Teacher: SB Referring MD: Zeina Adames BLASTING ENTRY SPECIALISTAlfredoC Symptoms: I26.99 - Other pulmonary embolism without acute cor pulmonale Study Quality: Adequate ECG Rhythm: Sinus Conclusions: - The left ventricular systolic function is normal. The calculated ejection fraction is 56% by biplane method. - There is mildly decreased right ventricular systolic function. - No obvious valvular pathology seen on this study. Findings Left Ventricle Normal left ventricular cavity size. The left ventricular systolic function is normal. The calculated ejection fraction is 56% by biplane method. There is no evidence of regional wall motion abnormalities. Diastolic function is normal for age. There is mild septal asymmetric hypertrophy. LV peak GLS 14.5% (diminished). Right Ventricle Normal right ventricular cavity size. There is mildly decreased right ventricular systolic function. Atria Both atria are normal in size. Aortic Valve There is a normal trileaflet aortic valve. There is no aortic valve stenosis. There is no aortic valve regurgitation. Mitral Valve The mitral valve appears normal. There is no mitral valve regurgitation. There is no mitral valve stenosis. Pulmonic Valve The pulmonic valve is likely normal. Tricuspid Valve Normal tricuspid valve structure. There is trace tricuspid valve regurgitation. Tricuspid regurgitation envelope is inadequate for calculation of right ventricular systolic pressure. Great Vessels The asc aorta and aortic arch are normal in size. Venous The inferior vena cava is normal in size and collapses greater than 50% with inspiration. Pericardium/Pleural There is no evidence of pericardial effusion. Prior Study Comparison Changes noted compared to prior study dated: 10/18/2019. See comment on RV function. Recommendations, Care & Conclusions No obvious valvular pathology seen on this study. Measurements 2D Linear Measurements IVSd: 1.16 0.6-0.9/0.6-1.0 cm LVIDd: 4.49 3.9-5.3/4.2-5.9 cm LVIDd Index: 2.35 2.4-3.2/2.2-3.1 cm/m2 LVIDs: 2.77 2.0-3.6 cm LVPWd: 0.70 0.7-1.1 cm LA Diam: 3.40 2.7-3.8/3.0-4.0 cm LAIDs Index: 1.78 1.5-2.3 cm/m2 LV Mass: 172.15 67-162/88-224 g LV Mass Index: 90.13 43-95/49-115 g/m2 LVOT Diam: 2.30 3.0+(-)1.3 cm 2D Systolic Function EF 4C: 65.50 >55% EF 2C: 45.70 >55% EF BiP: 56.30 >55% Mitral Valve MV Pk E: 0.49 MV PK A: 0.66 MV Decel Time: 199.00 E/A: 0.70 E'Lateral: 6.53 E'Medial: 5.87 E/E' Med: 8.30 E/E' Lat: 7.50 PHT: 58.00 MVA PHT: 3.79 Decel Dare: 2.46 Aortic Valve AoV Pk David: 0.95 AoV Pk Grad: 4.00 LISS: 4.18 LVOT LVOT Pk David: 0.86 LVOT Mn David: 0.65 LVOT VTI: 0.19 LVOT Pk Grad: 3.00 LVOT Mn Grad: 2.00 LVOT Diam: 2.30 LVOT Area: 4.15 Diastolic Function MV Pk E: 0.49 MV Pk A: 0.66 E/A: 0.70 E'Medial: 5.87 E/E' Med: 8.30 E' Laterial: 6.53 E/E' Lat: 7.50 Right Ventricle TAPSE (mm): 14.30 TVS' David: 7.18 Tricuspid Valve RA Press: 8.00 Great Vessels Aorta Sinus of Valsalva: 3.00 2.0-3.5 cm Ao Asc: 3.30 2.1-3.4 cm Ao Arch: 3.10 Pulmonary Veins Pulm Vein S/D 1.50 Pulmonary Valve PV Pk David: 0.73 Peak PV Grad: 2.00 Updated in Other Vendor System with Status of Final David Ramirez MD electronically signed on 12/12/2022 11:54:40 AM with status of Final
== END ==
LOC: HO.CARD 07:49
PROVIDERS: Visit Provider Nurse Practitioner Family
DX: I26.99 Other pulmonary embolism without acute cor pulmonale (principal)
CPT/HCPCS: 93306; 93356

== ENCOUNTER → 2022-12-15 07:43 | Outpatient (REF) | payer MEDICARE, OTHER, SELFPAY ==
--- NOTE | ~2022-12-15 | NM_ITS ---
Lexiscan Myocardial perfusion study Indication: Chest pain, assess for coronary disease and ischemia Technique: The patient was brought in for a Lexiscan perfusion study on 12/15/2022 and was injected 0.4 mg of Lexiscan intravenously. Within a minute of this injection 30 mCi of sestamibi was given intravenously. Images were obtained using the SPECT gamma camera interlaced with the gating device. Images were obtained in supine position. Resting perfusion study was performed on 12/19/2022. Patient was administered 30 mCi of sestamibi intravenously at rest. Images were then obtained in supine position. Images were processed with the software and compared side to side in short axis, horizontal long axis and vertical long axis views. Total DLP 126mGy-cm. Findings: Raw acquisition reviewed. The stress perfusion study showed diminished tracer uptake along the inferolateral wall. There is significant improvement with CT attenuation correction and suggestive of diaphragmatic attenuation artifact. The gated study shows normal LV systolic function with calculated LVEF of 56%. LV cavity is normal in size. The gated study shows normal wall thickening and contraction of segments. Resting study shows no significant perfusion abnormality. Gating at rest reveals normal wall motion with ejection fraction at 53%. The findings are consistent with no clear reversible or fixed perfusion defects. NM/NM cardiolite stress test Impression: 1. Myocardial perfusion imaging study shows likely normal myocardial perfusion. 2. Gated LVEF is 56% during stress and 53% during rest. 3. Transient ischemic dilatation not present. EKG component of the test reported separately.
--- NOTE | 2022-12-15 07:47 | CA_ITS ---
Acquisition Time: 2022-12-15 08:03:13 Total Exercise Time: 00:02:00 Test Indications: CP Medications: AMLODIPINE ELIQUIS ATORVASTATIN CETIRIZINE FLUOXETINE METFORMIN OMEPRAZOLE TRAZADONE TROSPIUM Protocol: LEXISCAN Max HR: 120 BPM 75% of Pred: 159 BPM Max BP: 154/068 mmHG Max Work Load: 1.0 METS Pharmacolgoical stresst test with Lexiscan injection while sitting and kicking her legs, with chest pressure 7/10 , without arrythmia, with normotensive response to injection, with non-specific ST and T wave abnormality, In recovery reversed with Aminophylline 75mg IVP. She continued to report mild chest pressure, worse with deep inspiration and with palpiation of LUQ Nuclear images pending. Test reviewed with Dr Yates. Pt went for nuclear images and continued to report mild chest pressure. She was brought back to the stress lab. EKG performed showing SR, no acute ST/ T wave abn, same as prior EKG. Pt describes a 4/10 upper chest pressure, that has been persistent since last hospital admit ( PE, PNA). At times the pressure is very mild and then it gets worse with activity. Offered to have her evaluated in the ED and she agreed to do so. present. Transported by RN via wheelchair to ED Dept. Report called to ED charge nurse. Referred By: Zeina Adames Overread By: ZEINA ADAMES
--- NOTE | 2022-12-15 09:41 | ECG_ITS ---
Test Reason : CP Blood Pressure : / mmHG Vent. Rate : 076 BPM Atrial Rate : 076 BPM P-R Int : 180 ms QRS Dur : 086 ms QT Int : 430 ms P-R-T Axes : 050 035 071 degrees QTc Int : 483 ms Normal sinus rhythm Nonspecific T wave abnormality Abnormal ECG When compared with ECG of 16-NOV-2022 08:39, No significant change was found Referred By: Zeina Adames Electronically Signed By:Dominguez Yates
== END ==
LOC: HO.CARD 07:43
PROVIDERS: PCP Internal Medicine; Visit Provider Nurse Practitioner Family
DX: R07.89 Other chest pain (principal); E11.29 Type 2 diabetes mellitus with other diabetic kidney complication; I10 Essential (primary) hypertension; M19.072 Primary osteoarthritis, left ankle and foot; M77.32 Calcaneal spur, left foot; R80.9 Proteinuria, unspecified; R94.31 Abnormal electrocardiogram [ECG] [EKG]
CPT/HCPCS: 78452; 93005; 93017; A9500; J0280; J2785

== ENCOUNTER 2022-12-15 10:06 | Observation (INO) | payer MEDICARE, OTHER, SELFPAY ==
[2022-12-15] VITALS (10 sets, daily range): BP systolic 118–181; BP diastolic 58–91; PULSE 69–85; RESP 13–18; TEMP 36.2–36.9; O2SAT 92–100; BMI 34.7; BMI 39.6
--- NOTE | ~2022-12-15 | CT_ITS ---
EXAMINATION: CT ANGIOGRAM OF THE CHEST WITH AND WITHOUT CONTRAST (CT PULMONARY ANGIOGRAM FOR PE) CLINICAL INFORMATION: Reason for Exam r/o extension of pulm embolism? /was off Eliquis COMPARISON: CT angiography chest 11/16/2022 TECHNIQUE: Prior to contrast administration, noncontrast localization images were obtained. Subsequently, multidetector volumetric imaging was performed from the thoracic inlet to below the diaphragms following the administration of 65 mL Omnipaque 350 intravenous contrast. No contrast reaction reported Sagittal, coronal, and MIP oblique sagittal reformatted images were obtained on the CT workstation, uploaded to PACS, and reviewed. This CT examination was performed using dose optimization techniques as appropriate, variously including the following: *Automated exposure control *Adjustment of mA and/or kV according to patient size (this includes techniques or standardized protocols for targeted exams where dose is matched to indication/reason for exam; i.e. extremities or head) *Use of iterative reconstruction technique Total exam dose-length product 393 mGy-cm FINDINGS: QUALITY OF STUDY/CONTRAST BOLUS: Satisfactory. PULMONARY ARTERIES: There is a linear web in the distal right main pulmonary artery extending into the segmental right lower lobe pulmonary artery. This is chronic related to prior pulmonary emboli. The pulmonary emboli seen on the CAT scan 11/16/2022 have regressed. No evidence of an acute pulmonary embolism. THORACIC AORTA: No aneurysm. LUNG: No acute abnormality. No acute airspace disease or interstitial lung disease. No suspicious lung nodules. There are a few small scattered micronodules similar prior study. There are a few scattered thin-walled lung cysts. PLEURA: No pleural effusion or pneumothorax. MEDIASTINUM: Normal heart size. No pericardial effusion. No hilar or mediastinal lymphadenopathy. No evidence of septal bowing or right heart strain. CORONARY ARTERY CALCIFICATION: Present. CHEST WALL/AXILLA: No axillary or internal mammary lymphadenopathy. OSSEOUS STRUCTURES: No acute or suspicious osseous abnormality. UPPER ABDOMEN: Unremarkable. No reflux of contrast into the hepatic veins to suggest elevated right heart pressures. CT/CT angio chest PE protocol IMPRESSION: 1. No evidence of acute pulmonary embolism. There is a linear web in the distal right main pulmonary artery extending into the segmental right lower lobe pulmonary artery. This is chronic related to prior pulmonary emboli. The pulmonary emboli seen on the CAT scan 11/16/2022 have regressed. 2. No acute abnormality of the chest VTE: negative
--- NOTE | ~2022-12-15 | XR_ITS ---
EXAMINATION: XR CHEST CLINICAL INFORMATION: Reason for Exam chest pain COMPARISON: Chest radiograph 11/28/2022 TECHNIQUE: One view of the chest FINDINGS: Few streaky left basilar airspace opacities favoring atelectasis. No pneumothorax. Possible trace left pleural effusion. Unchanged cardiomediastinal silhouette. XR/XR chest 1V IMPRESSION: 1. Few streaky left basilar airspace opacities favoring atelectasis. 2. Possible trace left pleural effusion.
--- NOTE | 2022-12-15 10:07 | ECG_ITS ---
Test Reason : chest pain Blood Pressure : / mmHG Vent. Rate : 079 BPM Atrial Rate : 079 BPM P-R Int : 184 ms QRS Dur : 084 ms QT Int : 414 ms P-R-T Axes : 049 011 062 degrees QTc Int : 474 ms Normal sinus rhythm Cannot rule out Inferior infarct , age undetermined Possible Anterior infarct , age undetermined Abnormal ECG When compared with ECG of 15-DEC-2022 09:41, No significant change was found Referred By: Generic ED Physician Electronically Signed By:Dominguez Yates
[2022-12-15 12:18] LABS: MANUAL DIFF FLAG NO
[2022-12-15 12:22] LABS: Basophils Percent Auto 0.6 % (0-2); Eosinophils Absolute Auto 0.1 X10*3/uL (0.0-0.4); Hematocrit 38.9 % (37.0-47.0); Hemoglobin 12.8 g/dl (12.0-16.0); Imm Gran Abs Auto 0.02 X10*3/uL (0.00-0.03); Imm Gran Pct Auto 0.3 % (0.0-0.4); Lymphocytes Absolute Auto 2.7 X10*3/uL (1.2-4.9); Lymphocytes Percent Auto 39.2 % (20-40); Mean Corpuscular HGB Conc 32.9 g/dl (31.0-35.0); Mean Corpuscular Volume 85.1 fL (80.0-98.0); Mean Platelet Volume 9.5 fL (9.4-12.3); Monocytes Absolute Auto 0.4 X10*3/uL (0.1-1.2); Neutrophils Absolute Auto 3.6 x10*3/uL (2.0-8.3); Neutrophils Percent Auto 52.9 % (45-73); Platelet Count 289 X10*3/uL (160-400); Red Blood Count 4.57 X10*6/uL (4.20-5.50); Red Cell Distribution Width 14.8 % (11.0-16.0); White Blood Count 6.8 X10*3/uL (4.8-10.8)
[2022-12-15 12:36] LABS: Alanine Aminotransferase 20 U/L (0-31); Albumin Level 4.2 g/dL (3.5-5.0); Alkaline Phosphatase 96 U/L (39-117); Anion Gap 16 (12-20); Aspartate Amino Transferase 17 U/L (5-31); Bilirubin Direct 0.3 mg/dL (0.0-0.5); Bilirubin Total 1.5 mg/dL (0.0-1.0); Blood Urea Nitrogen 12 mg/dL (9-16); Calcium 9.7 mg/dL (8.4-10.2); Carbon Dioxide 22 mmol/L (22-29); Chloride 108 mmol/L (96-108); Estimated Glomerular Filt Rate > 60; Glucose Random 101 mg/dL (60-115); Potassium 4.1 mmol/L (3.3-5.1); Sodium 142 mmol/L (135-145); Total Protein 7.2 g/dL (6.5-8.0)
[2022-12-15 12:43] LABS: Troponin-I High Sensitivity 3.2 ng/L (<3.5-17.0)
[2022-12-15] MEDS: Acetaminophen 325 MG TABLET 650 MG PO (15:36)
--- NOTE | 2022-12-15 15:36 | ECG_ITS ---
Test Reason : CHEST PAIN Blood Pressure : / mmHG Vent. Rate : 061 BPM Atrial Rate : 061 BPM P-R Int : 212 ms QRS Dur : 088 ms QT Int : 492 ms P-R-T Axes : 035 008 046 degrees QTc Int : 495 ms Sinus rhythm with 1st degree A-V block Nonspecific T wave abnormality Prolonged QT Abnormal ECG When compared with ECG of 15-DEC-2022 10:15, No significant change was found Referred By: Qing Jacobs Electronically Signed By:Dominguez Yates
--- NOTE | 2022-12-15 15:40 | ED_ITS ---
HPI - Chest Pain General Chief Complaint: Chest Pain Stated Complaint: chest pain Time Seen by Provider: 12/15/22 15:14 Source: patient and family () Mode of arrival: ambulatory History of Present Illness HPI narrative: 62-year-old female who presents with chest pressure that started during her cardiac stress test this morning that she describes as chest pressure/heaviness, nonradiating, not reproducible. Patient denies any associated headache, dizziness, diaphoresis, shortness of breath or nausea. Patient states that it has been constant and denies being provided with any aspirin. Patient does endorse that her last Eliquis was last night, and she is on the Eliquis for a known PE. Related Data Home Medications Medication Instructions Recorded Confirmed trospium 60 mg capsule,extended 60 mg PO DAILY 01/23/22 12/09/22 release 24 hr cholecalciferol (vitamin D3) 1,250 1,250 mcg PO MO 11/01/22 12/09/22 mcg (50,000 unit) capsule cetirizine 10 mg tablet 10 mg PO DAILY 11/16/22 12/09/22 Previous Rx's Medication Instructions Recorded fluoxetine 20 mg capsule 40 mg PO DAILY #60 caps 07/10/22 omeprazole 40 mg capsule,delayed 40 mg PO BID #60 caps 09/07/22 release atorvastatin 40 mg tablet 40 mg PO DAILY #90 tabs 11/04/22 metformin 500 mg tablet 500 mg PO DAILY #90 tabs 11/18/22 amlodipine 2.5 mg tablet 2.5 mg PO DAILY #30 tabs 12/06/22 apixaban 5 mg tablet 5 mg PO BID #60 tabs 12/06/22 trazodone 100 mg tablet 100 mg PO BEDTIME #30 caps 12/07/22 Allergies Allergy/AdvReac Type Severity Reaction Status Date / Time Iodinated Contrast Media AdvReac Intermediate Rash Verified 12/08/22 13:12 [IV CONTRAST] perflutren [From Definity] AdvReac Back Pain Verified 12/12/22 08:01 Review of Systems Review of Systems: Pertinent positives and negatives as stated in HPI [facility] Past Medical History Source: nursing notes reviewed Medical History Arthritis of first metatarsophalangeal (MTP) joint of left foot Calcaneal spur of left foot COPD (chronic obstructive pulmonary disease) COVID-19 vaccine series completed Depression, major, recurrent, in complete remission Deviated nasal septum Diabetes mellitus with microalbuminuria, without long-term current use of insulin Dyslipidemia Essential hypertension GERD (gastroesophageal reflux disease) Herpes zoster History of COVID-19 History of pulmonary embolism History of thyroid cancer Left shoulder tendinitis Vitamin B12 deficiency Vitamin D deficiency Surgical History H/O spinal fusion History of cervical spinal surgery History of colonoscopy History of partial thyroidectomy History of shoulder surgery History of surgery History of tubal ligation Hx of left breast biopsy Family History Family History Father Alcoholism Mother HTN (hypertension) Hyperlipidemia CVD (cardiovascular disease) Sister Hyperlipidemia Alcoholism Substance use disorder Brother No problems noted. Sister No problems noted. Sister No problems noted. Sister No problems noted. Daughter No problems noted. Daughter No problems noted. Social History Social History Household Members: Spouse Housing: House Do you presently have visiting nurse or other home services: No Alcohol intake: never Patient Tobacco Use Status: Former Tobacco user Quit Date: 20 yrs ago Years Smoked: 4 yrs e-Cigarette/Vaping Use: Never Used Second Hand Smoke Exposure: No Advance Directives: No Advance Directives Information Provided: No service: No Current occupational status: disabled Cognitive needs: No Hearing needs: No Vision needs: Yes Physical Exam Vital Signs: Vital Signs: Last Vital Signs Temp 98.1 F 12/15/22 19:03 Pulse 79 12/15/22 19:03 Resp 13 12/15/22 19:03 BP 145/79 H 12/15/22 19:03 Pulse Ox 96 12/15/22 19:03 O2 Del Method Room Air 12/15/22 19:03 BMI result Body Mass Index 34.7 VITAL SIGNS: Reviewed. GENERAL: Elevated BMI Well developed, well nourished, in no acute distress. HEAD: Normocephalic/atraumatic EYES: PERRLA, EOMI EARS: Ext canals without abnormality NOSE: Nares patent bilateral OROPHARYNX: no oral lesions noted, posterior pharynx clear NECK: Supple, no adenopathy LUNGS: Normal breath sounds. No adventitious sounds or accessory muscle use. SpO2<99> CARDIOVASCULAR: Regular rate and rhythm without noted murmurs, no JVD or lower extremity edema. ABDOMEN: Soft, non-tender, non-distended with bowel sounds. MUSCULOSKELETAL: No tenderness, deformities, or effusions noted on gross inspection. EXTREMITIES: No cyanosis, clubbing or edema. SKIN: Inspection of the skin reveals no rashes NEUROLOGIC: Alert and oriented x 4. Strength and sensation to light touch were grossly intact x 4. Medications Administered Discontinued Medications Generic Name Dose Route Start Last Admin Trade Name Arvind PRN Reason Stop Dose Admin Acetaminophen 650 mg 12/15/22 15:27 12/15/22 15:36 Acetaminophen 325 Mg Tablet PO 12/15/22 15:28 650 mg ONCE ONE Administration Nitroglycerin 0.4 mg 12/15/22 16:29 12/15/22 16:50 Nitroglycerin 0.4 Mg Tab.Subl SUBLINGUAL 12/15/22 16:30 0.4 mg ONCE ONE Administration Medical Decision Making Medical Decision Making [facility] Narrative: 1549: 62-year-old female who presents with chest pressure during her cardiac stress test this morning that has not resolved in 4 hours and she rates as a 6/10. Patient is requesting to eat and although the story sounds very concerning I do not appreciate a troponin or EKG corroboration for patient's symptoms at present. She is otherwise hemodynamically stable and appears very comfortable and well. Will follow up with repeat troponin, EKG, coags as well as chest x-ray. Review of all investigations demonstrates flat troponins which are 4 hours apart and do not me delta criteria, however chest pain is very typical in nature and description and patient received sublingual nitro as recommended by Cardiology with significant improvement in her chest discomfort. HEART Score- 6 It is by my interpretation that patient has had atypical chest pain associated with exertion as mimicked by medications and has improved with administration of sublingual nitro. Despite the fact that there have been no troponins there have been EKG changes and I feel that the patient should be admitted for further evaluation workup. Cardiology has been consulted and states that if the chest pain is typical that patient should be admitted and they will see the patient in the morning. Patient is hemodynamically stable and will be restarted on her Eliquis as she does have an underlying PE. She will also get a 3rd troponin although I do not expect that this will necessarily be elevated. Hospitalist has agreed for admission. Differential Diagnosis Please see the discussion above Consult Healthcare Provider Management of the patient was discussed with: Ring Making Machine Operator 1627: Due to EKG changes in conduction, consult id Cardiology, who recommends nitro and 3 sets of troponins. 1720: I discussed the case with the inpatient hospitalist who is unclear with they should do for the patient and is requesting further clarification from Cardiology. 1728: I discussed the hospitalist concerns with Cardiology who recommends that it is if chest pain is typical than admit and he will see the patient in the morning. I did communicate this to the inpatient hospitalist. 1800: Inpatient hospitalist is not sure, they did see the patient at bedside and feel that if the 3rd troponin is elevated then they will reconsider. Lab Data Please see the discussion above 12/15/22 12:09 12/15/22 12:09 Labs: Lab Results 12/15/22 12/15/22 12/15/22 Range/Units 12:09 12:09 12:09 WBC 6.8 (4.8-10.8) X10*3/uL RBC 4.57 (4.20-5.50) X10*6/uL Hgb 12.8 (12.0-16.0) g/dl Hct 38.9 (37.0-47.0) % MCV 85.1 (80.0-98.0) fL MCH 28.0 (27.0-33.0) pg MCHC 32.9 (31.0-35.0) g/dl RDW 14.8 (11.0-16.0) % Plt Count 289 (160-400) X10*3/uL MPV 9.5 (9.4-12.3) fL Immature Gran % (Auto) 0.3 (0.0-0.4) % Neut % (Auto) 52.9 (45-73) % Lymph % (Auto) 39.2 (20-40) % [place] % (Auto) 6.0 (2-11) % Eos % (Auto) 1.0 (0-4) % Baso % (Auto) 0.6 (0-2) % Lymph # (Auto) 2.7 (1.2-4.9) X10*3/uL [place] # (Auto) 0.4 (0.1-1.2) X10*3/uL Eos # (Auto) 0.1 (0.0-0.4) X10*3/uL Baso # (Auto) 0.0 (0.0-0.2) X10*3/uL Abs Immat Gran (auto) 0.02 (0.00-0.03) X10*3/uL Absolute Neuts (auto) 3.6 (2.0-8.3) x10*3/uL Absolute Nucleated RBC 0.000 (0.0-0.012) X10*3/uL Nucleated RBC % (auto) 0.0 (0.0-0.2) /100WBC PT (10.0-13.1) SEC INR (0.9-1.1) Sodium 142 (135-145) mmol/L Potassium 4.1 (3.3-5.1) mmol/L Chloride 108 (96-108) mmol/L Carbon Dioxide 22 (22-29) mmol/L Anion Gap 16 (12-20) BUN 12 (9-16) mg/dL Creatinine 0.86 (0.5-1.4) mg/dL Estim Creat Clear Calc 70.0 Estimated GFR > 60 Random Glucose 101 (60-115) mg/dL Calcium 9.7 (8.4-10.2) mg/dL Magnesium 2.0 (1.6-2.6) mg/dL Total Bilirubin 1.5 H (0.0-1.0) mg/dL Direct Bilirubin 0.3 (0.0-0.5) mg/dL AST 17 (5-31) U/L ALT 20 (0-31) U/L Alkaline Phosphatase 96 (39-117) U/L Troponin I High Sens 3.2 (<3.5-17.0) ng/L Total Protein 7.2 (6.5-8.0) g/dL Albumin 4.2 (3.5-5.0) g/dL COVID-19 ([facility]) (Negative) COVID-19 Clin Com 12/15/22 12/15/22 12/15/22 Range/Units 16:10 16:10 17:52 WBC (4.8-10.8) X10*3/uL RBC (4.20-5.50) X10*6/uL Hgb (12.0-16.0) g/dl Hct (37.0-47.0) % MCV (80.0-98.0) fL MCH (27.0-33.0) pg MCHC (31.0-35.0) g/dl RDW (11.0-16.0) % Plt Count (160-400) X10*3/uL MPV (9.4-12.3) fL Immature Gran % (Auto) (0.0-0.4) % Neut % (Auto) (45-73) % Lymph % (Auto) (20-40) % [place] % (Auto) (2-11) % Eos % (Auto) (0-4) % Baso % (Auto) (0-2) % Lymph # (Auto) (1.2-4.9) X10*3/uL [place] # (Auto) (0.1-1.2) X10*3/uL Eos # (Auto) (0.0-0.4) X10*3/uL Baso # (Auto) (0.0-0.2) X10*3/uL Abs Immat Gran (auto) (0.00-0.03) X10*3/uL Absolute Neuts (auto) (2.0-8.3) x10*3/uL Absolute Nucleated RBC (0.0-0.012) X10*3/uL Nucleated RBC % (auto) (0.0-0.2) /100WBC PT 14.1 H (10.0-13.1) SEC INR 1.2 H (0.9-1.1) Sodium (135-145) mmol/L Potassium (3.3-5.1) mmol/L Chloride (96-108) mmol/L Carbon Dioxide (22-29) mmol/L Anion Gap (12-20) BUN (9-16) mg/dL Creatinine (0.5-1.4) mg/dL Estim Creat Clear Calc Estimated GFR Random Glucose (60-115) mg/dL Calcium (8.4-10.2) mg/dL Magnesium (1.6-2.6) mg/dL Total Bilirubin (0.0-1.0) mg/dL Direct Bilirubin (0.0-0.5) mg/dL AST (5-31) U/L ALT (0-31) U/L Alkaline Phosphatase (39-117) U/L Troponin I High Sens 3.2 (<3.5-17.0) ng/L Total Protein (6.5-8.0) g/dL Albumin (3.5-5.0) g/dL COVID-19 ([facility]) Negative (Negative) COVID-19 Clin Com See Note Independent Interpretation I performed an independent interpretation of an: EKG Interpretation: Normal sinus rhythm, HR-79, no STEMI, Q-wave noted in lead 3 but does not appear to be in II or AVF and on comparison to 12/01 there have been no acute changes. Otherwise I do not appreciate any acute differences in EKG pattern from 12/01. 1558: Sinus rhythm with first-degree AV block, HR -61, no STEMI, VT-212, QRS wnl, QTc-495 Radiology Impression Radiologist Impression: My interpretation is in agreement with radiology's impression of the imaging studies. External Record Review External record reviewed: Outpatient record and Prior outpatient labs Chronic Conditions Patient?s care impacted by: Diabetes Discharge Plan Discharge Clinical Impression: ACS (acute coronary syndrome) Patient Disposition: Admitted As Inpatient Prescriptions: No Action fluoxetine 20 mg capsule 40 mg PO DAILY Qty: 60 5RF omeprazole 40 mg capsule,delayed release(DR/EC) 40 mg PO BID Qty: 60 3RF atorvastatin 40 mg tablet 40 mg PO DAILY Qty: 90 1RF metformin 500 mg tablet 500 mg PO DAILY Qty: 90 1RF apixaban 5 mg tablet 5 mg PO BID Qty: 60 5RF amlodipine 2.5 mg tablet 2.5 mg PO DAILY Qty: 30 5RF Protocol: Hold for SBP< HOLD for SBP < : 90 trazodone 100 mg tablet 100 mg PO BEDTIME Qty: 30 3RF cetirizine 10 mg Tablet 10 mg PO DAILY cholecalciferol (vitamin D3) 1,250 mcg (50,000 unit) capsule 1,250 mcg PO MO trospium 60 mg capsule,extended release 24hr 60 mg PO DAILY
[2022-12-15 16:31] LABS: INTERNATIONAL NORM RATIO 1.2 (0.9-1.1); Prothrombin Time 14.1 SEC (10.0-13.1)
[2022-12-15 16:40] LABS: Troponin-I High Sensitivity 3.2 ng/L (<3.5-17.0)
[2022-12-15] MEDS: Nitroglycerin 0.4 MG TAB.SUBL SUBLINGUAL ×3 (16:50→22:10)
--- NOTE | 2022-12-15 17:39 | PC.NURSE ---
Reports decrease in chest pain after nitro. Alert and oriented, resp even and unlabored.
[2022-12-15 18:20] LABS: COVID-19 Test Negative (Negative); IDNOW Serial# 08D9AD1C
--- NOTE | 2022-12-15 18:46 | PC.NURSE ---
Plan for repeat troponin at 1999, planned admission.
--- NOTE | 2022-12-15 18:54 | P.HPHOSP_ITS ---
History of Present Illness Date of Service: 12/15/22 Attending physician on admission: Evelyn Crooks Chief Complaint: Chest pain Pt is a 62-year-old female with a PMH significant for?HLD, HTN, rvp-cyddoec-pqqhzznir diabetes, depression, hx of bilateral PE on 07/04/2013, PE on 11/16/2022, hx of right calf DVT on 07/02/2014, and hx of thyroid cancer who presents to the ED with chest pain. Pt was at cardiology appointment this morning to undergo chemical stress test. Test was negative: had chest pressure 7/10, without arrythmia, with normotensive response to injection, and with nonspecific ST and T-wave abnormality. While waiting in recovery patient was reversed with Aminophylline but continued to experience mild chest pressure (4/10), worse with deep inspiration and with palpitations of LUQ. Chest pressure is centrally located, non-radiating, non-reproducible. EKG performed after stress test, showed normal sinus rhythm with no acute ST or T-wave abnormalities, same as prior EKG. Pt given option of being evaluated in the ED and agreed, transported via wheelchair. Pt states she experienced some nausea while in waiting room, but no vomiting. In ED pt responded well to nitrogl ycerin, which alleviated her chest pain. Pt states pain is worse with exertion and inspiration, also experiences SOB with exertion. At time of interview patient says she is feeling much better. Denies fever, chills, abdominal pain. No palpitations. Discussed case with ED who thought patient should be admitted to the hospital for workup for ACS?despite negative troponins and relatively benign EKG findings. In the ED patient was hypertensive up to 181/77. Labs were unremarkable. Initial troponin negative at 3.2 with repeat negative at 3.2. CXR showed likely atelectasis in left basilar airspace, and possible trace left pleural effusion. EKG in the ED showed normal sinus rhythm with nonspecific T-wave abnormality, similar to previous. Repeat EKG showed possible first-degree AV block and nonspecific T-wave abnormality, similar to previous. Pt was treated with nitroglycerin and acetaminophen. Pt will be admitted to the hospital under observation for further evaluation of atypical chest pain. Review of Systems Review of Systems: Chest pressure, worse with inspiration Shortness of breath with exertion Nausea Denies fever, chills, abdominal pain Yes all other systems are reviewed and are negative PMFSH Medical History Arthritis of first metatarsophalangeal (MTP) joint of left foot Calcaneal spur of left foot COPD (chronic obstructive pulmonary disease) COVID-19 vaccine series completed Depression, major, recurrent, in complete remission Deviated nasal septum Diabetes mellitus with microalbuminuria, without long-term current use of insulin Dyslipidemia Essential hypertension GERD (gastroesophageal reflux disease) Herpes zoster History of COVID-19 History of pulmonary embolism History of thyroid cancer Left shoulder tendinitis Vitamin B12 deficiency Vitamin D deficiency Family History Father Alcoholism Mother HTN (hypertension) Hyperlipidemia CVD (cardiovascular disease) Sister Hyperlipidemia Alcoholism Substance use disorder Brother No problems noted. Sister No problems noted. Sister No problems noted. Sister No problems noted. Daughter No problems noted. Daughter No problems noted. Surgical History H/O spinal fusion History of cervical spinal surgery History of colonoscopy History of partial thyroidectomy History of shoulder surgery History of surgery History of tubal ligation Hx of left breast biopsy Social History Household Members: Spouse Household Members Other:: 2 Housing: House Do you presently have visiting nurse or other home services: No Alcohol intake: never Patient Tobacco Use Status: Former Tobacco user Quit Date: 20 yrs ago Tobacco use type: Cigarette Years Smoked: 4 yrs Smoked in Last 30 Days: No e-Cigarette/Vaping Use: Never Used Patient Interested in Nicotine Replacement: No Patient Given Instructions on How to Stop Smoking: No Second Hand Smoke Exposure: No Use of substances other than those prescribed or required for medical reasons: No Currently Displaying Signs/Symptoms of Drug Intoxication Withdrawal: No Any prior treatment program specific to substance use: No Have you been hit, kicked, punched, or otherwise hurt by someone within the past year? If so, by whom?: No Do you feel safe in your current relationship?: No Is there a partner from a previous relationship who is making you feel unsafe now?: No Are you made to feel afraid or neglected: No Advance Directives: No Advance Directives Information Provided: No Do you have thoughts of harming others: None Do you have a plan to hurt others: No Plan Recently lost weight without trying: No Eating poorly because of decreased appetite: No Nutrition Risks: No Nutritional Risk Patient : No service: No Current occupational status: disabled Cognitive needs: No Hearing needs: No Vision needs: Yes Meds Allergies Allergy/AdvReac Type Severity Reaction Status Date / Time Iodinated Contrast Media AdvReac Intermediate Rash Verified 12/08/22 13:12 [IV CONTRAST] perflutren [From Definity] AdvReac Back Pain Verified 12/12/22 08:01 Active Medications: Current Medications Pharmacy Consult (Consult Rx Perform Med Rec) 1 each MISCELLANE ONCE PRN PRN Reason: Consult order Home Medications Medication Instructions Recorded Confirmed Last Taken Type trospium 60 mg capsule,extended 60 mg PO DAILY 01/23/22 12/15/22 12/14/22 History release 24 hr cholecalciferol (vitamin D3) 1,250 1,250 mcg PO MO 11/01/22 12/15/22 12/12/22 History mcg (50,000 unit) capsule cetirizine 10 mg tablet 10 mg PO DAILY 11/16/22 12/15/22 12/14/22 History atorvastatin 40 mg tablet 40 mg PO BEDTIME 12/15/22 12/15/22 12/14/22 History omeprazole 40 mg capsule,delayed 40 mg PO BID@0630,1630 12/15/22 12/15/22 12/14/22 History release Physical Exam Vital Signs and Narrative: Vital Signs: Last Vital Signs Temp 98.1 F 12/15/22 14:31 Pulse 74 12/15/22 14:31 Resp 14 12/15/22 14:31 BP 181/77 H 12/15/22 16:51 Pulse Ox 99 12/15/22 14:31 O2 Del Method Room Air 12/15/22 14:31 BMI result Body Mass Index 34.7 Constitutional: Alert, in no acute distress. Mental Status: Oriented to person, place and time. Eyes: Pupils are equal, round, and reactive to light. Ear, Nose, and Throat: Oropharynx clear, mucous membranes moist. Ears and nose without deformities. Trachea midline. Respiratory: Clear to auscultation bilaterally. No wheezing, rales, or rhonchi. Cardiovascular: S1, S2 regular. No murmurs, rubs, or gallops. Gastrointestinal: Abdomen soft, non-tender, non-distended. Normal bowel sounds. Neurologic: Cranial nerves II-XII are grossly intact bilaterally. No focal neurological deficits. Moves all extremities spontaneously. Skin: Warm, dry. Musculoskeletal: No cyanosis or clubbing. Extremities: No edema. Psychiatric: Normal mood and affect. Results Labs 12/15/22 12:09 12/15/22 12:09 Labs: Laboratory Results - last 24 hr 12/15/22 12/15/22 12/15/22 12:09 12:09 12:09 MCV 85.1 MCH 28.0 MCHC 32.9 RDW 14.8 Plt Count 289 MPV 9.5 Immature Gran % (Auto) 0.3 Neut % (Auto) 52.9 Lymph % (Auto) 39.2 [place] % (Auto) 6.0 Eos % (Auto) 1.0 Baso % (Auto) 0.6 Lymph # (Auto) 2.7 [place] # (Auto) 0.4 Eos # (Auto) 0.1 Baso # (Auto) 0.0 Abs Immat Gran (auto) 0.02 Absolute Neuts (auto) 3.6 Absolute Nucleated RBC 0.000 Nucleated RBC % (auto) 0.0 PT INR Anion Gap 16 Estim Creat Clear Calc 70.0 Estimated GFR > 60 Random Glucose 101 Calcium 9.7 Magnesium 2.0 Total Bilirubin 1.5 H Direct Bilirubin 0.3 AST 17 ALT 20 Alkaline Phosphatase 96 Troponin I High Sens 3.2 Total Protein 7.2 Albumin 4.2 COVID-19 ([facility]) COVID-19 Clin Com 12/15/22 12/15/22 12/15/22 16:10 16:10 17:52 MCV MCH MCHC RDW Plt Count MPV Immature Gran % (Auto) Neut % (Auto) Lymph % (Auto) [place] % (Auto) Eos % (Auto) Baso % (Auto) Lymph # (Auto) [place] # (Auto) Eos # (Auto) Baso # (Auto) Abs Immat Gran (auto) Absolute Neuts (auto) Absolute Nucleated RBC Nucleated RBC % (auto) PT 14.1 H INR 1.2 H Anion Gap Estim Creat Clear Calc Estimated GFR Random Glucose Calcium Magnesium Total Bilirubin Direct Bilirubin AST ALT Alkaline Phosphatase Troponin I High Sens 3.2 Total Protein Albumin COVID-19 ([facility]) Negative COVID-19 Clin Com See Note Imaging Radiologist's Impressions: Impressions Chest X-Ray 12/15/22 16:47 IMPRESSION: 1. Few streaky left basilar airspace opacities favoring atelectasis. 2. Possible trace left pleural effusion. Assessment and Plan (1) Atypical chest pain: Status: Acute Plan Pt is a 62-year-old female with a PMH significant for?HLD, HTN, atv-utcvrmo-kchweznyd diabetes, depression, hx of bilateral PE on 07/04/2013, PE on 11/16/2022, hx of right calf DVT on 07/02/2014, and hx of thyroid cancer who presents to the ED with chest pain after chemical stress test earlier in the day.?Pt will be admitted to the hospital under observation for further evaluation of atypical chest pain. Chest pain, ?atypical Pt complains of minor chest pressure (4/10) after getting reversed with Aminophylline. Pressure is heavy, centrally-located, non-radiating, non- reproducible. Worse with inspiration, exertion Received relief from nitro in ED Troponins negative, EKGs relatively benign with nonspecific T-wave abnormality, largely unchanged from previous Check third troponin Nitroglycerin 0.4mg sublingual [id number] prn Cardiology consult Admit to telemetry Hx of PE Continue Eliquis Usl-fazlejf-gxaokcfan diabetes Hold home meds SSI Depression Continue fluoxetine HTN Pt with elevated BP in ED: SBP in 180s Given extra dose of amlodipine 2.5mg po Continue amlodipine HLD Continue atorvastatin Full Code Attending:?Dr. Crooks DVT Prophylaxis: On Eliquis Pt will be admitted to the hospital under observation for further evaluation of atypical chest pain.. Time Spent With Patient Time: Total time managing care of this patient today ____ minutes. Quality Stroke Does the patient have a stroke diagnosis?: No VTE Prior VTE?: No VTE Risk Level:: Medical - moderate - high VTE Device Contraindication: Treatment Not Indicated VTE Drug Contraindication: N/A - Med Ordered
--- NOTE | 2022-12-15 19:01 | PM.EVENT ---
Event Note Date of Service: 12/16/22 Event Note: Patient came to the hospital because she was having stress test today and started to have some chest pain: Patient chest pain is intermittent, 4 / 10, some tightness, pleuritic , not reproduced or positional . She said she took nitro and it helped with the pain. She also has elevated blood pressure SBP is in 180. This patient is seen and examined with APC. Lab imaging, EKG reviewed. CBC, BMP seems fine, EKG seems similar to before. Physical exam and assessment and plan coordinated in APCs note, Agree with the plan in addition: chest pain: ? Atypical Currently discussed with the ED physician : still need to admit, trops neg ,chest pain improvin another set of trops ordered, will moniter patient overnight ,added amlodipine for bp,nitro Time Spent With Patient Time: Total time managing care of this patient today ____ minutes.
--- NOTE | 2022-12-15 19:18 | PHA.MEDREC ---
Pharmacy Consult ? Medication Reconciliation Pharmacy has completed the medication reconciliation. Went over claim history with patient at bedside
[2022-12-15] MEDS: amLODIPine Besylate 2.5 MG TABLET PO (19:28)
[2022-12-15] MEDS: Apixaban 5 MG TABLET PO (19:28)
--- NOTE | 2022-12-15 19:36 | PC.NURSE ---
This publications writer assumed care of this Pt at 1900. Pt A&Ox4, reports 4/10 heavy feeling to midsternal chest, denies any radiation, SOB or palpitations. HR in the 80's NSR. Ambulated to BR with steady gait, tolerating PO fluids, food provided. RN to RN report given, Pt will be transported to room 472, Pt aware of plan.
--- NOTE | 2022-12-15 20:00 | ECG_ITS ---
Test Reason : Chest Pain Blood Pressure : / mmHG Vent. Rate : 076 BPM Atrial Rate : 076 BPM P-R Int : 198 ms QRS Dur : 086 ms QT Int : 426 ms P-R-T Axes : 056 023 109 degrees QTc Int : 479 ms Normal sinus rhythm T wave abnormality, consider anterolateral ischemia Prolonged QT Abnormal ECG When compared with ECG of 15-DEC-2022 15:58, T wave inversion now evident in Lateral leads Referred By: Qing Jacobs Electronically Signed By:Dominguez Yates
[2022-12-15] MEDS: 0.9 % Sodium Chloride Flush 3 ML SYRINGE IVFLUSH (20:04)
[2022-12-15 20:36] LABS: Troponin-I High Sensitivity < 2.7 ng/L (<3.5-17.0)
--- NOTE | 2022-12-15 22:19 | PM.EVENT ---
Event Note Date of Service: 12/15/22 Event Note: pt continues to have chest pain intermittently. No changes on EKG. Trop negative x3 will place on nitro paste given htn. cardiology consulted Time Spent With Patient Time: Total time managing care of this patient today ____ minutes.
[2022-12-15] MEDS: Omeprazole 40 MG CAPSULE.DR PO (22:56)
[2022-12-15] MEDS: traZODone HCL 100 MG TABLET PO (22:56)
[2022-12-15] MEDS: Atorvastatin Calcium 40 MG TABLET PO (22:56)
[2022-12-16] VITALS (8 sets, daily range): BP systolic 117–132; BP diastolic 59–81; PULSE 60–92; RESP 12–20; TEMP 36.4–36.8; O2SAT 91–98
--- NOTE | 2022-12-16 | ECG_ITS ---
Test Reason : cp Blood Pressure : / mmHG Vent. Rate : 078 BPM Atrial Rate : 078 BPM P-R Int : 210 ms QRS Dur : 084 ms QT Int : 410 ms P-R-T Axes : 050 012 086 degrees QTc Int : 467 ms Sinus rhythm with 1st degree A-V block Otherwise normal ECG When compared with ECG of 15-DEC-2022 22:10, Nonspecific T wave abnormality has replaced inverted T waves in Anterolateral leads Referred By: Evelyn Crooks Electronically Signed By:Dominguez Yates
[2022-12-16] MEDS: Omeprazole 40 MG CAPSULE.DR PO ×2 (06:05→17:02)
[2022-12-16] MEDS: Apixaban 5 MG TABLET PO ×2 (08:38→20:35)
[2022-12-16] MEDS: 0.9 % Sodium Chloride Flush 3 ML SYRINGE IVFLUSH ×3 (08:38→20:35)
[2022-12-16] MEDS: amLODIPine Besylate 2.5 MG TABLET PO (08:38)
[2022-12-16] MEDS: Loratadine 10 MG TABLET PO (08:38)
[2022-12-16] MEDS: FLUoxetine HCl 20 MG CAPSULE 40 MG PO (08:38)
[2022-12-16] MEDS: Nitroglycerin 0.4 MG TAB.SUBL SUBLINGUAL ×3 (08:55→14:59)
--- NOTE | 2022-12-16 11:29 | MHC.CM.PN ---
Pt arrived to ED with c/o chest pain, pt currently under observation. VIDES delivered 12/16. D/C plan to return home with no services/DME once medically cleared (awaiting cardio consult). Pt independent, disabled, and lives with her . Pts to transport her back home. HCP on file and verified. PCP: Flakita Perry vax: x 2 moderna
[2022-12-16] MEDS: Acetaminophen 325 MG TABLET 650 MG PO (11:40)
[2022-12-16 15:11] LABS: Troponin-I High Sensitivity < 2.7 ng/L (<3.5-17.0)
[2022-12-16] MEDS: Lactated Ringers 1,000 ML 80 ML IVCONT (17:02)
--- NOTE | 2022-12-16 17:23 | P.CONCA_ITS ---
History of Present Illness History of Present Illness Date of Service: 12/16/22 Requesting physician: Evelyn Crooks Chief complaint: chest pain Narrative: [age] year female who we have been asked to see for chest discomfort. She has been having chest pain since November when she was admitted to hospital with pneumonia. Soon after that she saw Dr. Cotto and was diagnosed with pulmonary emboli and has been on apixaban since then. She is describing a pressure-like feeling in the center of her chest which is present all the time. She also has some sharp pain in the left lower chest and upper abdominal area. She was seen in the office and apparently was referred for stress testing. When she came for stress test she received regular nurse on and her chest pressure worsened after that and subsequently she was sent to the emergency department. In the ER she had multiple cardiac troponins checked which were all normal. ECG had some precordial T-wave changes. She said she did not take at apixaban for 2 days because she was advised by the clinic that she should stop her apixaban before stress test. [facility] Past Medical History Medical History Arthritis of first metatarsophalangeal (MTP) joint of left foot Calcaneal spur of left foot COPD (chronic obstructive pulmonary disease) COVID-19 vaccine series completed Depression, major, recurrent, in complete remission Deviated nasal septum Diabetes mellitus with microalbuminuria, without long-term current use of insulin Dyslipidemia Essential hypertension GERD (gastroesophageal reflux disease) Herpes zoster History of COVID-19 History of pulmonary embolism History of thyroid cancer Left shoulder tendinitis Vitamin B12 deficiency Vitamin D deficiency Family History Family History Father Alcoholism Mother HTN (hypertension) Hyperlipidemia CVD (cardiovascular disease) Sister Hyperlipidemia Alcoholism Substance use disorder Brother No problems noted. Sister No problems noted. Sister No problems noted. Sister No problems noted. Daughter No problems noted. Daughter No problems noted. Surgical History Surgical History H/O spinal fusion History of cervical spinal surgery History of colonoscopy History of partial thyroidectomy History of shoulder surgery History of surgery History of tubal ligation Hx of left breast biopsy Social History Social History Household Members: Spouse Household Members Other:: 2 Housing: House Do you presently have visiting nurse or other home services: No Alcohol intake: never Patient Tobacco Use Status: Former Tobacco user Quit Date: 20 yrs ago Tobacco use type: Cigarette Years Smoked: 4 yrs Smoked in Last 30 Days: No e-Cigarette/Vaping Use: Never Used Patient Interested in Nicotine Replacement: No Patient Given Instructions on How to Stop Smoking: No Second Hand Smoke Exposure: No Use of substances other than those prescribed or required for medical reasons: No Currently Displaying Signs/Symptoms of Drug Intoxication Withdrawal: No Any prior treatment program specific to substance use: No Have you been hit, kicked, punched, or otherwise hurt by someone within the past year? If so, by whom?: No Do you feel safe in your current relationship?: No Is there a partner from a previous relationship who is making you feel unsafe now?: No Are you made to feel afraid or neglected: No Advance Directives: No Advance Directives Information Provided: No Do you have thoughts of harming others: None Do you have a plan to hurt others: No Plan Recently lost weight without trying: No Eating poorly because of decreased appetite: No Nutrition Risks: No Nutritional Risk Patient : No service: No Current occupational status: disabled Cognitive needs: No Hearing needs: No Vision needs: Yes Meds Allergies Allergy/AdvReac Type Severity Reaction Status Date / Time Iodinated Contrast Media AdvReac Intermediate Rash Verified 12/08/22 13:12 [IV CONTRAST] perflutren [From Definity] AdvReac Back Pain Verified 12/12/22 08:01 Active Medications: Current Medications Acetaminophen (Acetaminophen 325 Mg Tablet) 650 mg PO Q6H PRN PRN Reason: Pain, Mild (Pain Scale 1-3) Last Admin: 12/16/22 11:40 Dose: 650 mg Amlodipine Besylate (Amlodipine Besylate 2.5 Mg Tablet) 2.5 mg PO DAILY RAMON; Protocol Last Admin: 12/16/22 08:38 Dose: 2.5 mg Apixaban (Apixaban 5 Mg Tablet) 5 mg PO BID [facility]ON Last Admin: 12/16/22 08:38 Dose: 5 mg Atorvastatin Calcium (Atorvastatin Calcium 40 Mg Tablet) 40 mg PO BEDTIME [facility] Last Admin: 12/15/22 22:56 Dose: 40 mg Fluoxetine HCl (Fluoxetine Hcl 20 Mg Capsule) 40 mg PO DAILY [facility] Last Admin: 12/16/22 08:38 Dose: 40 mg Lactated Ringer's (Lr) 1,000 mls @ 80 mls/hr IVCONT .[id number] [facility] Last Admin: 12/16/22 17:02 Dose: 80 mls/hr Loratadine (Loratadine 10 Mg Tablet) 10 mg PO DAILY [facility] Last Admin: 12/16/22 08:38 Dose: 10 mg Nitroglycerin (Nitroglycerin 0.4 Mg Tab.Subl) 0.4 mg SUBLINGUAL Q5MX3 PRN PRN Reason: Chest Pain Last Admin: 12/16/22 11:38 Dose: 0.4 mg Non-Formulary Medication (Trospium) 60 mg PO DAILY [facility] Omeprazole (Omeprazole 40 Mg Capsule.Dr) 40 mg PO BID@0630,1630 [facility] Last Admin: 12/16/22 17:02 Dose: 40 mg Pharmacy Consult (Consult Rx Perform Med Rec) 1 each MISCELLANE ONCE PRN PRN Reason: Consult order Sodium Chloride (0.9 % Sodium Chloride Flush 3 Ml Syringe) 3 ml IVFLUSH QSHIFT [facility] Last Admin: 12/16/22 17:02 Dose: 3 ml Trazodone HCl (Trazodone Hcl 100 Mg Tablet) 100 mg PO BEDTIME [facility] Last Admin: 12/15/22 22:56 Dose: 100 mg Home Medications Medication Instructions Recorded Confirmed Last Taken Type trospium 60 mg capsule,extended 60 mg PO DAILY 01/23/22 12/15/22 12/14/22 History release 24 hr cholecalciferol (vitamin D3) 1,250 1,250 mcg PO MO 11/01/22 12/15/22 12/12/22 History mcg (50,000 unit) capsule cetirizine 10 mg tablet 10 mg PO DAILY 11/16/22 12/15/22 12/14/22 History atorvastatin 40 mg tablet 40 mg PO BEDTIME 12/15/22 12/15/22 12/14/22 History omeprazole 40 mg capsule,delayed 40 mg PO BID@0630,1630 12/15/22 12/15/22 12/14/22 History release Physical Exam Vital Signs: Vital Signs: Last Vital Signs Temp 97.8 F 12/16/22 15:10 Pulse 92 12/16/22 15:10 Resp 15 12/16/22 15:10 BP 118/59 L 12/16/22 15:10 Pulse Ox 91 L 12/16/22 15:10 O2 Del Method Room Air 12/16/22 15:10 O2 Flow Rate 2 12/16/22 07:23 BMI result Body Mass Index 39.6 GENERAL APPEARANCE: in no acute distress, pleasant. NECK: no carotid bruit, no jugular venous distention. SKIN: no suspicious lesions, warm and dry. HEART: no murmurs, regular rate and rhythm. LUNGS: clear to auscultation bilaterally. ABDOMEN: soft, nontender. EXTREMITIES: no edema. PERIPHERAL PULSES: equal. NEUROLOGIC: No gross deficits, AAO X 3 Objective Labs and Meds 12/15/22 12:09 12/15/22 12:09 Lab results: Laboratory Results - last 24 hr 12/15/22 12/15/22 12/16/22 17:52 20:02 14:40 Troponin I High Sens < 2.7 < 2.7 COVID-19 ([facility]) Negative COVID-19 Clin Com See Note Assessment and Plan (1) Atypical chest pain: Status: Acute (2) Abnormal finding on EKG: Status: Acute Plan 62-year-old female who has chest pressure ongoing for approximately 1 month. She is describing continuous chest pressure like feeling. She was diagnosed with pulmonary embolism at the same time. She came to emergency department from stress lab which she presented with stress test and after performing stress imaging she was complaining of more chest pressure and was sent for further evaluation. Her biomarkers are completely normal. EKG has nonspecific changes but her EKG from December 15 at 10:00 o'clock has some precordial T-wave inversions and prolonged QTC of 479. These changes are still nonspecific appearing and do not clearly point toward ischemia. Her biomarkers have been completely normal. I explained to her that so for her testing has been normal. She is quite frustrated and wants to know if this is related to a new blood clot. She also missed her Eliquis for 2 days. After discussion we have decided to arrange CT scan PE protocol for her. She finished her stress imaging with rest imaging is still pending. When she is done with the stress test we will have more information. Avoid medication which can prolong QT interval. She is currently taking trazodone and fluoxetine which can both affect QT interval. She recently had echocardiography which showed mild RV dysfunction but otherwise study was normal. I think she does not need repeat echocardiography currently. Thank you for allowing me to participate in the care of your patient. Please feel free to contact me if you have any questions. Time Spent With Patient Time: Total time managing care of this patient today ____ minutes. Procedures Date of Service Date of Service: 12/16/22
[2022-12-16] MEDS: methylPREDNISolone Sod Succ 40 MG/ML VIAL IVPUSH ×2 (17:43→20:35)
[2022-12-16] MEDS: diphenhydrAMINE HCL 50 MG/ML VIAL IVPUSH (17:43)
--- NOTE | 2022-12-16 17:56 | P.PNIM_ITS ---
Subjective Subjective Date of Service: 12/16/22 Interval History: chest pain Review of Systems Patient still has on and off chest pain, Which seems to be better currently, denies any shortness of breath or nausea vomiting. She said she was off Eliquis for 2 days-? So concerned ?pulm embolism issue Physical Exam Vital Signs: Vital Signs: Last Vital Signs Temp 97.8 F 12/16/22 15:10 Pulse 92 12/16/22 15:10 Resp 15 12/16/22 15:10 BP 118/59 L 12/16/22 15:10 Pulse Ox 91 L 12/16/22 15:10 O2 Del Method Room Air 12/16/22 15:10 O2 Flow Rate 2 12/16/22 07:23 BMI result Body Mass Index 39.6 Appearance: Alert.? Oriented X3.? cvs: rrr, [id number] . res: clear to auscultation ,no rhonchii or wheezing abd: no rebound or guarding ,nt, bs present. ext pulses present , no cyanosis . neuro: axo3 , nonfocal. Objective Data Active Medications Acetaminophen (Acetaminophen 325 Mg Tablet) 650 mg PO Q6H PRN PRN Reason: Pain, Mild (Pain Scale 1-3) Last Admin: 12/16/22 11:40 Dose: 650 mg Documented By: KOURTNEY Amlodipine Besylate (Amlodipine Besylate 2.5 Mg Tablet) 2.5 mg PO DAILY [facility]; Protocol Last Admin: 12/16/22 08:38 Dose: 2.5 mg Documented By: KOURTNEY Apixaban (Apixaban 5 Mg Tablet) 5 mg PO BID [facility] Last Admin: 12/16/22 08:38 Dose: 5 mg Documented By: KOURTNEY Atorvastatin Calcium (Atorvastatin Calcium 40 Mg Tablet) 40 mg PO BEDTIME [facility] Last Admin: 12/15/22 22:56 Dose: 40 mg Documented By: MARYJANE Fluoxetine HCl (Fluoxetine Hcl 20 Mg Capsule) 40 mg PO DAILY [facility] Last Admin: 12/16/22 08:38 Dose: 40 mg Documented By: KOURTNEY Lactated Ringer's (Lr) 1,000 mls @ 80 mls/hr IVCONT .[id number] [facility] Last Admin: 12/16/22 17:02 Dose: 80 mls/hr Documented By: KOURTNEY Loratadine (Loratadine 10 Mg Tablet) 10 mg PO DAILY [facility] Last Admin: 12/16/22 08:38 Dose: 10 mg Documented By: KOURTNEY Methylprednisolone Sodium Succinate (Methylprednisolone Sod Succ 40 Mg/Ml Vial) 40 mg IVPUSH Q4H [facility] Last Admin: 12/16/22 17:43 Dose: 40 mg Documented By: KOURTNEY Nitroglycerin (Nitroglycerin 0.4 Mg Tab.Subl) 0.4 mg SUBLINGUAL Q5MX3 PRN PRN Reason: Chest Pain Last Admin: 12/16/22 11:38 Dose: 0.4 mg Documented By: KOURTNEY Comments: 0.4 Non-Formulary Medication (Trospium) 60 mg PO DAILY [facility] Omeprazole (Omeprazole 40 Mg Capsule.Dr) 40 mg PO BID@0630,1630 [facility] Last Admin: 12/16/22 17:02 Dose: 40 mg Documented By: KORUTNEY Pharmacy Consult (Consult Rx Perform Med Rec) 1 each MISCELLANE ONCE PRN PRN Reason: Consult order Sodium Chloride (0.9 % Sodium Chloride Flush 3 Ml Syringe) 3 ml IVFLUSH QSHIFT [facility] Last Admin: 12/16/22 17:02 Dose: 3 ml Documented By: KOURTNEY Trazodone HCl (Trazodone Hcl 100 Mg Tablet) 100 mg PO BEDTIME [facility] Last Admin: 12/15/22 22:56 Dose: 100 mg Documented By: CARLLA Labs 12/15/22 12:09 12/15/22 12:09 Labs: Laboratory Results - last 24 hr 12/15/22 12/15/22 12/16/22 17:52 20:02 14:40 Troponin I High Sens < 2.7 < 2.7 COVID-19 ([facility]) Negative COVID-19 Clin Com See Note Assessment and Plan (1) Atypical chest pain: Status: Acute Plan ?62-year-old female with a PMH significant for?HLD, HTN, aaq-xokcmuo-xeyjobdjb diabetes, depression, hx of bilateral PE on 07/04/2013, PE on 11/16/2022, hx of right calf DVT on 07/02/2014, and hx of thyroid cancer who presents to the ED with chest pain after chemical stress test earlier in the day.?Pt will be admitted to the hospital under observation for further evaluation of atypical chest pain. Chest pain, ?atypical Pt complains of minor chest pressure (4/10) after getting reversed with Aminophylline. Pressure is heavy, centrally-located, non-radiating, non- reproducible. Worse with inspiration, exertion Received relief from nitro in ED Troponins negative, EKGs relatively benign with nonspecific T-wave abnormality, largely unchanged from previous tropx4 negative.,Nitroglycerin 0.4mg sublingual q5mx3 prn Cardiology consult noted-stress imaging pending, cta added , added iv solumedrol/benadryl. Hx of PE- missed 2 days eliquis Cta ,started on solumedrol/benadryl Continue Eliquis Gvo-jvpxerk-gvlsczfvn diabetes Hold home meds SSI Depression Continue fluoxetine HTN Pt with elevated BP in ED: SBP in 180s Given extra dose of amlodipine 2.5mg po Continue amlodipine HLD Continue atorvastatin Full Code Attending:?Dr. Crooks DVT Prophylaxis: On Eliquis inpatient need: chest pian -workup pending ,cardiology followup -after workup. Time Spent With Patient Time: Total time managing care of this patient today ____ minutes. Quality Stroke Does the patient have a stroke diagnosis?: No VTE Prior VTE?: No VTE Risk Level:: Medical - moderate - high VTE Device Contraindication: Treatment Not Indicated VTE Drug Contraindication: N/A - Med Ordered
[2022-12-16] MEDS: iohexoL 350 MG/ML 100 ML INFUS..BTL IV (18:49)
[2022-12-16] MEDS: Atorvastatin Calcium 40 MG TABLET PO (20:35)
[2022-12-16] MEDS: traZODone HCL 50 MG TABLET PO (20:35)
[2022-12-17] VITALS (7 sets, daily range): BP systolic 122–164; BP diastolic 60–82; PULSE 61–82; RESP 18–20; TEMP 36.1–37.1; O2SAT 92–96
[2022-12-17] MEDS: methylPREDNISolone Sod Succ 40 MG/ML VIAL IVPUSH ×2 (04:15→06:27)
[2022-12-17] MEDS: Omeprazole 40 MG CAPSULE.DR PO ×2 (06:27→16:02)
[2022-12-17] MEDS: Lactated Ringers 1,000 ML 80 ML IVCONT (06:31)
[2022-12-17] MEDS: Apixaban 5 MG TABLET PO ×2 (10:18→21:39)
[2022-12-17] MEDS: Acetaminophen 325 MG TABLET 975 MG PO ×2 (10:18→18:15)
[2022-12-17] MEDS: Loratadine 10 MG TABLET PO (10:18)
[2022-12-17] MEDS: 0.9 % Sodium Chloride Flush 3 ML SYRINGE IVFLUSH ×3 (10:19→21:39)
--- NOTE | 2022-12-17 12:00 | P.PNIM_ITS ---
Subjective Subjective Date of Service: 12/17/22 Interval History: chest pain Review of Systems chest pain improved denies any sob Physical Exam Vital Signs: Vital Signs: Last Vital Signs Temp 98.7 F 12/17/22 11:14 Pulse 82 12/17/22 11:14 Resp 20 12/17/22 11:14 BP 152/82 H 12/17/22 11:14 Pulse Ox 95 12/17/22 11:14 O2 Del Method Room Air 12/17/22 11:14 O2 Flow Rate 2 12/16/22 07:23 BMI result Body Mass Index 39.6 Appearance: Alert.? Oriented X3.? cvs: [id number], [id number] . res: clear to auscultation ,no rhonchii or wheezing abd: no rebound or guarding ,nt, bs present. ext pulses present , no cyanosis . neuro: axo3 , nonfocal. Objective Data Active Medications Acetaminophen (Acetaminophen 325 Mg Tablet) 975 mg PO Q8H [facility] Last Admin: 12/17/22 10:20 Dose: Not Given Documented By: CYN Non-Admin Reason: one time dose just given. Apixaban (Apixaban 5 Mg Tablet) 5 mg PO BID [facility] Last Admin: 12/17/22 10:18 Dose: 5 mg Documented By: CYN Atorvastatin Calcium (Atorvastatin Calcium 40 Mg Tablet) 40 mg PO BEDTIME [facility] Last Admin: 12/16/22 20:35 Dose: 40 mg Documented By: BOBO Capsaicin (Capsaicin 0.025% Cream 60 Gm Tube) 1 appl TOPICAL QID PRN; Protocol PRN Reason: Pain, Mild (Pain Scale 1-3) Fluoxetine HCl (Fluoxetine Hcl 20 Mg Capsule) 40 mg PO DAILY [facility] Last Admin: 12/16/22 08:38 Dose: 40 mg Documented By: KOURTNEY Loratadine (Loratadine 10 Mg Tablet) 10 mg PO DAILY [facility] Last Admin: 12/17/22 10:18 Dose: 10 mg Documented By: CYN Nitroglycerin (Nitroglycerin 0.4 Mg Tab.Subl) 0.4 mg SUBLINGUAL Q5MX3 PRN PRN Reason: Chest Pain Last Admin: 12/16/22 11:38 Dose: 0.4 mg Documented By: KOURTNEY Comments: 0.4 Non-Formulary Medication (Trospium) 60 mg PO DAILY [facility] Omeprazole (Omeprazole 40 Mg Capsule.Dr) 40 mg PO BID@0630,1630 [facility] Last Admin: 12/17/22 06:27 Dose: 40 mg Documented By: BOBO Pharmacy Consult (Consult Rx Perform Med Rec) 1 each MISCELLANE ONCE PRN PRN Reason: Consult order Sodium Chloride (0.9 % Sodium Chloride Flush 3 Ml Syringe) 3 ml IVFLUSH QSHIFT [facility] Last Admin: 12/17/22 10:19 Dose: 3 ml Documented By: CYN Trazodone HCl (Trazodone Hcl 50 Mg Tablet) 50 mg PO BEDTIME [facility] Last Admin: 12/16/22 20:35 Dose: 50 mg Documented By: BOBO Labs 12/15/22 12:09 12/15/22 12:09 Labs: Laboratory Results - last 24 hr 12/16/22 14:40 Troponin I High Sens < 2.7 Assessment and Plan (1) Atypical chest pain: Status: Acute Plan ?62-year-old female with a PMH significant for?HLD, HTN, jkw-mpfvqqm-kzocwqfxp diabetes, depression, hx of bilateral PE on 07/04/2013, PE on 11/16/2022, hx of right calf DVT on 07/02/2014, and hx of thyroid cancer who presents to the ED with chest pain after chemical stress test earlier in the day.?Pt will be admitted to the hospital under observation for further evaluation of atypical chest pain. Chest pain, ?atypical trops neg cta -neg chest painresolved seen by cardio- patient needs to complete cardiac workup before discharge. Hx of PE- cta neg for new events Continue Eliquis Pvc-dlsxgja-clzeifblj diabetes Hold home meds SSI Depression Continue fluoxetine HTN: sunoptimal: start amlodipine 2.5mg po HLD Continue atorvastatin DVT Prophylaxis: On Eliquis inpatient need: chest pian -workup pending ,cardiology followup . Time Spent With Patient Time: Total time managing care of this patient today ____ minutes. Quality Stroke Does the patient have a stroke diagnosis?: No VTE Prior VTE?: No VTE Risk Level:: Medical - moderate - high VTE Device Contraindication: Treatment Not Indicated VTE Drug Contraindication: N/A - Med Ordered
--- NOTE | 2022-12-17 12:32 | PM.PNCARD ---
Subjective Subjective Date of Service: 12/17/22 Interval history: Seen examined at bedside. She underwent CT pulmonary angiogram last evening which showed healed old PE. She said she received Benadryl and steroids and since then her chest pressure has completely resolved. Physical Exam Vital Signs: Last Vital Signs Temp 98.7 F 12/17/22 11:14 Pulse 82 12/17/22 11:14 Resp 20 12/17/22 11:14 BP 152/82 H 12/17/22 11:14 Pulse Ox 95 12/17/22 11:14 O2 Del Method Room Air 12/17/22 11:14 O2 Flow Rate 2 12/16/22 07:23 BMI result Body Mass Index 39.6 GENERAL APPEARANCE: in no acute distress, pleasant. NECK: no carotid bruit, no jugular venous distention. SKIN: no suspicious lesions, warm and dry. HEART: no murmurs, regular rate and rhythm. LUNGS: clear to auscultation bilaterally. ABDOMEN: soft, nontender. EXTREMITIES: no edema. PERIPHERAL PULSES: equal. NEUROLOGIC: No gross deficits, AAO X 3 Objective Labs and Meds 12/15/22 12:09 12/15/22 12:09 Lab results: Laboratory Results - last 24 hr 12/16/22 14:40 Troponin I High Sens < 2.7 Imaging Radiologist's impression: Impressions Chest CTA 12/16/22 18:57 IMPRESSION: 1. No evidence of acute pulmonary embolism. There is a linear web in the distal right main pulmonary artery extending into the segmental right lower lobe pulmonary artery. This is chronic related to prior pulmonary emboli. The pulmonary emboli seen on the CAT scan 11/16/2022 have regressed. 2. No acute abnormality of the chest VTE: negative Progress Note: A&P Assessment and plan (1) Atypical chest pain: Status: Acute Plan 62-year-old female with atypical chest pain. The etiology is still unclear to me. She is saying after she received steroids for the CT pulmonary angiogram her chest discomfort has improved completely. She does not have history of asthma. She is not wheezing. In any case her symptoms are improved. Clinical story was not consistent with acute coronary syndrome. She had repeat CT pulmonary angiogram which shows no acute clot and probably healed old PE. She should continue anticoagulation as before. She will go back home and will finish her stress test as outpatient. Thank you for allowing me to participate in the care of your patient. Please feel free to contact me if you have any questions. Time Spent With Patient Time: Total time managing care of this patient today ____ minutes. Progress Note: Quality Stroke Does the patient have a stroke diagnosis?: No Procedures Date of Service Date of Service: 12/17/22
[2022-12-17] MEDS: amLODIPine Besylate 2.5 MG TABLET PO (12:39)
[2022-12-17] MEDS: Capsaicin 0.025% Cream 60 GM TUBE 1 APPL TOPICAL (12:39)
--- NOTE | 2022-12-17 13:17 | PC.NURSE ---
12:39 topical zostrix was administered, pt told nurse at 13:18 that the site it burning and it hurts. this nurse helped pt wash site with warm water which pt states that feels much better . site a little red otherwise pt is fine - no SOB vitals stable. notified. will continue to monitor.
[2022-12-17] MEDS: predniSONE 20 MG TABLET 60 MG PO (16:03)
[2022-12-17] MEDS: Cyclobenzaprine HCl 5 MG TABLET PO (16:03)
[2022-12-17] MEDS: traZODone HCL 25 MG HALFTAB PO (16:07)
[2022-12-17] MEDS: traZODone HCL 100 MG TABLET PO (21:39)
[2022-12-17] MEDS: Atorvastatin Calcium 40 MG TABLET PO (21:39)
--- NOTE | 2022-12-18 | ECG_ITS ---
Test Reason : chest pain Blood Pressure : / mmHG Vent. Rate : 062 BPM Atrial Rate : 062 BPM P-R Int : 186 ms QRS Dur : 090 ms QT Int : 468 ms P-R-T Axes : 057 016 103 degrees QTc Int : 475 ms Normal sinus rhythm Nonspecific T wave abnormality Prolonged QT Abnormal ECG When compared with ECG of 16-DEC-2022 14:30, No significant change was found Referred By: Evelyn Crooks Electronically Signed By:Dominguez Yates
[2022-12-18 04:20] VITALS: BP 120/62; PULSE 60; RESP 20; TEMP 36.4; O2SAT 93
[2022-12-18] MEDS: Omeprazole 40 MG CAPSULE.DR PO ×2 (06:34→17:37)
[2022-12-18 08:19] VITALS: BP 134/64; PULSE 68; RESP 12; TEMP 36.6; O2SAT 96
[2022-12-18] MEDS: amLODIPine Besylate 2.5 MG TABLET PO (08:21)
[2022-12-18] MEDS: 0.9 % Sodium Chloride Flush 3 ML SYRINGE IVFLUSH ×3 (08:21→21:20)
[2022-12-18] MEDS: Acetaminophen 325 MG TABLET 975 MG PO (08:21)
[2022-12-18] MEDS: Apixaban 5 MG TABLET PO ×2 (08:23→21:19)
[2022-12-18] MEDS: Loratadine 10 MG TABLET PO (08:23)
[2022-12-18] MEDS: FLUoxetine HCl 20 MG CAPSULE 40 MG PO (09:36)
[2022-12-18 11:32] VITALS: BP 142/67; PULSE 59; RESP 20; TEMP 36.5; O2SAT 95
--- NOTE | 2022-12-18 11:51 | HO.PM.IMPN ---
Subjective Subjective Date of Service: 12/18/22 Interval History: chest pain Review of Systems chest pain improved denies any sob Physical Exam Vital Signs: Vital Signs: Last Vital Signs Temp 97.7 F 12/18/22 11:32 Pulse 59 12/18/22 11:32 Resp 20 12/18/22 11:32 BP 142/67 H 12/18/22 11:32 Pulse Ox 95 12/18/22 11:32 O2 Del Method Room Air 12/18/22 11:32 O2 Flow Rate 2 12/16/22 07:23 BMI result Body Mass Index 39.6 Appearance: Alert.? Oriented X3.? cvs: [id number], [id number] . res: clear to auscultation ,no rhonchii or wheezing abd: no rebound or guarding ,nt, bs present. ext pulses present , no cyanosis . neuro: axo3 , nonfocal. Objective Data Active Medications Acetaminophen (Acetaminophen 325 Mg Tablet) 975 mg PO Q8H [facility] Last Admin: 12/18/22 08:21 Dose: 975 mg Documented By: VICTORIANO Amlodipine Besylate (Amlodipine Besylate 2.5 Mg Tablet) 2.5 mg PO DAILY [facility]; Protocol Last Admin: 12/18/22 08:21 Dose: 2.5 mg Documented By: VICTORIANO Apixaban (Apixaban 5 Mg Tablet) 5 mg PO BID [facility] Last Admin: 12/18/22 08:23 Dose: 5 mg Documented By: VICTORIANO Atorvastatin Calcium (Atorvastatin Calcium 40 Mg Tablet) 40 mg PO BEDTIME [facility] Last Admin: 12/17/22 21:39 Dose: 40 mg Documented By: BOBO Capsaicin (Capsaicin 0.025% Cream 60 Gm Tube) 1 appl TOPICAL QID PRN; Protocol PRN Reason: Pain, Mild (Pain Scale 1-3) Last Admin: 12/17/22 12:39 Dose: 1 appl Documented By: CYN Fluoxetine HCl (Fluoxetine Hcl 20 Mg Capsule) 40 mg PO DAILY [facility] Last Admin: 12/18/22 09:36 Dose: 40 mg Documented By: VICTORIANO Glucose (Glucose Gel 15 Gm Gel..Gram.) 15 gm PO Q15M PRN; Protocol PRN Reason: per Hypoglycemia Standing Ord. Dextrose (D10) 250 mls @ 750 mls/hr IV Q15M PRN; Protocol PRN Reason: per Hypoglycemia Standing Ord. Insulin Human Lispro (Insulin Lispro 100 Unit/Ml 3 Ml Vial) 0 unit SUBCUT QIDACHS [facility]; Protocol Loratadine (Loratadine 10 Mg Tablet) 10 mg PO DAILY [facility] Last Admin: 12/18/22 08:23 Dose: 10 mg Documented By: VICTORIANO Nitroglycerin (Nitroglycerin 0.4 Mg Tab.Subl) 0.4 mg SUBLINGUAL Q5MX3 PRN PRN Reason: Chest Pain Last Admin: 12/16/22 11:38 Dose: 0.4 mg Documented By: KOURTNEY Comments: 0.4 Non-Formulary Medication (Trospium) 60 mg PO DAILY [facility] Omeprazole (Omeprazole 40 Mg Capsule.Dr) 40 mg PO BID@0630,1630 [facility] Last Admin: 12/18/22 06:34 Dose: 40 mg Documented By: BOBO Pharmacy Consult (Consult Rx Perform Med Rec) 1 each MISCELLANE ONCE PRN PRN Reason: Consult order Sodium Chloride (0.9 % Sodium Chloride Flush 3 Ml Syringe) 3 ml IVFLUSH QSHIFT [facility] Last Admin: 12/18/22 08:21 Dose: 3 ml Documented By: VICTORIANO Trazodone HCl (Trazodone Hcl 100 Mg Tablet) 100 mg PO BEDTIME [facility] Last Admin: 12/17/22 21:39 Dose: 100 mg Documented By: BOBO Labs 12/15/22 12:09 12/15/22 12:09 Assessment and Plan (1) Atypical chest pain: Status: Acute Plan ?62-year-old female with a PMH significant for?HLD, HTN, vkn-[id number]-kvoqkwxfr diabetes, depression, hx of bilateral PE on 07/04/2013, PE on 11/16/2022, hx of right calf DVT on 07/02/2014, and hx of thyroid cancer who presents to the ED with chest pain after chemical stress test earlier in the day.?Pt will be admitted to the hospital under observation for further evaluation of atypical chest pain. Chest pain, ?atypical trops neg cta -neg chest painresolved d/w patient : she prefers to stay and complete cardiac workup before discharge. Hx of PE-cta neg for new events Continue Eliquis Eud-enagrud-ysxcoeaue diabetes stable Hold home meds SSI Depression Continue fluoxetine HTN: stable continue amlodipine 2.5mg po HLD:Continue atorvastatin Patient has small rash with capscian cream -given steriods yesterday -seems to be improved. DVT Prophylaxis: On Eliquis inpatient need: chest pian -workup pending ,cardiology followup . Time Spent With Patient Time: Total time managing care of this patient today ____ minutes. Quality Stroke Does the patient have a stroke diagnosis?: No VTE Prior VTE?: No VTE Risk Level:: Medical - moderate - high VTE Device Contraindication: Treatment Not Indicated VTE Drug Contraindication: N/A - Med Ordered
[2022-12-18 12:19] LABS: Glucose, Whole Blood 282 mg/dL (60-115)
[2022-12-18] MEDS: Insulin Lispro 100 UNIT/ML 3 ML VIAL SUBCUT ×2 (12:44→17:37)
[2022-12-18 15:07] VITALS: BP 142/67; PULSE 60; RESP 20; TEMP 36.1; O2SAT 95
--- NOTE | 2022-12-18 16:12 | P.CNPS_ITS ---
History of Present Illness Date of Service: 12/18/22 Chief Complaint: chest pain Reason for Consult: Assess need for Prozac/trazodone given concern about QTC prolongation Requesting physician: Evelyn Crooks Discussed with referring provider: Yes Sources of Information: patient interviewed and chart reviewed Additional Sources of Information: daughter, Alina bronson [employer]ALLOW REFINER also present via phone for interview HPI Narrative: pt is a 62 yo female with hx of ....depression and anxiety both pt and daughter agree that prozac taken for past several years has helped with anxiety depression, but not as much as it used to; trazodone helps with sleep. She was on Seroquel for sleep at one point but it was discontinued for concern of Qtc prolongation. Pt says anxiety has gotten worse and she finds herself more irritable than before. Weight Control Engineer discussed risks/benefit of prozac/trazodone vs arrythmia which both understand and will discuss further with Dr. Crooks, however they both agreed that if risk is low, pt wants to stay on both medications. Weight Control Engineer discussed additional meds for help with anxiety and as Buspar is often used to augment Prozac and does not have a listed risk of Qtc prolongation, pt agreed to trial. Weight Control Engineer discussed case further with Dr. Crooks and Dr. Hayes who informed that Cardiology says Qtc is improving and so no need to change out prozac/trazodone and agree with starting Buspar. Past Psychiatric History: anxiety, depression no hx of SI at all; no psych admission Medical Evaluation Reviewed: Yes [facility] Medical History (Updated 01/02/23 @ 09:50 by Flakita Calero MD) Arthritis of first metatarsophalangeal (MTP) joint of left foot Calcaneal spur of left foot COPD (chronic obstructive pulmonary disease) COVID-19 vaccine series completed Depression, major, recurrent, in complete remission Deviated nasal septum Diabetes mellitus with microalbuminuria, without long-term current use of insulin Dyslipidemia Essential hypertension Generalized anxiety disorder GERD (gastroesophageal reflux disease) Herpes zoster History of COVID-19 History of pulmonary embolism History of thyroid cancer Intermittent palpitations Left shoulder tendinitis Vitamin B12 deficiency Vitamin D deficiency Surgical History H/O spinal fusion History of cervical spinal surgery History of colonoscopy History of partial thyroidectomy History of shoulder surgery History of surgery History of tubal ligation Hx of left breast biopsy Diagnostics Vital Signs (24Hr): Vital Signs - 24 hr 12/17/22 19:12 12/17/22 23:05 12/18/22 04:20 Temperature 96.9 F 98.2 F 97.6 F Pulse Rate 67 81 60 Respiratory Rate 20 20 20 Blood Pressure 164/72 H 128/76 120/62 Pulse Oximetry 95 94 93 Oxygen Delivery Method Room Air Room Air Room Air 12/18/22 08:19 12/18/22 11:32 12/18/22 15:07 Temperature 97.8 F 97.7 F 96.9 F Pulse Rate 68 59 60 Respiratory Rate 12 20 20 Blood Pressure 134/64 142/67 H 142/67 H Pulse Oximetry 96 95 95 Oxygen Delivery Method Room Air Room Air Room Air BMI result Body Mass Index 39.6 Labs 12/15/22 12:09 12/15/22 12:09 Labs: Laboratory Results - last 48 hr 12/18/22 11:33 POC Glucose 282 H Imaging Radiology Impressions: ITS Impressions Chest X-Ray 12/15/22 16:47 IMPRESSION: 1. Few streaky left basilar airspace opacities favoring atelectasis. 2. Possible trace left pleural effusion. Chest CTA 12/16/22 18:57 IMPRESSION: 1. No evidence of acute pulmonary embolism. There is a linear web in the distal right main pulmonary artery extending into the segmental right lower lobe pulmonary artery. This is chronic related to prior pulmonary emboli. The pulmonary emboli seen on the CAT scan 11/16/2022 have regressed. 2. No acute abnormality of the chest VTE: negative Medications Medications Current Medications Acetaminophen (Acetaminophen 325 Mg Tablet) 975 mg PO Q8H [facility] Last Admin: 12/18/22 08:21 Dose: 975 mg Amlodipine Besylate (Amlodipine Besylate 2.5 Mg Tablet) 2.5 mg PO DAILY [facility]; Protocol Last Admin: 12/18/22 08:21 Dose: 2.5 mg Apixaban (Apixaban 5 Mg Tablet) 5 mg PO BID [facility] Last Admin: 12/18/22 08:23 Dose: 5 mg Atorvastatin Calcium (Atorvastatin Calcium 40 Mg Tablet) 40 mg PO BEDTIME [facility] Last Admin: 12/17/22 21:39 Dose: 40 mg Capsaicin (Capsaicin 0.025% Cream 60 Gm Tube) 1 appl TOPICAL QID PRN; Protocol PRN Reason: Pain, Mild (Pain Scale 1-3) Last Admin: 12/17/22 12:39 Dose: 1 appl Fluoxetine HCl (Fluoxetine Hcl 20 Mg Capsule) 40 mg PO DAILY [facility] Last Admin: 12/18/22 09:36 Dose: 40 mg Glucose (Glucose Gel 15 Gm Gel..Gram.) 15 gm PO Q15M PRN; Protocol PRN Reason: per Hypoglycemia Standing Ord. Dextrose (D10) 250 mls @ 750 mls/hr IV Q15M PRN; Protocol PRN Reason: per Hypoglycemia Standing Ord. Insulin Human Lispro (Insulin Lispro 100 Unit/Ml 3 Ml Vial) 0 unit SUBCUT QIDACHS [facility]; Protocol Last Admin: 12/18/22 12:44 Dose: 6 unit Loratadine (Loratadine 10 Mg Tablet) 10 mg PO DAILY [facility] Last Admin: 12/18/22 08:23 Dose: 10 mg Nitroglycerin (Nitroglycerin 0.4 Mg Tab.Subl) 0.4 mg SUBLINGUAL Q5MX3 PRN PRN Reason: Chest Pain Last Admin: 12/16/22 11:38 Dose: 0.4 mg Non-Formulary Medication (Trospium) 60 mg PO DAILY [facility] Omeprazole (Omeprazole 40 Mg Capsule.Dr) 40 mg PO BID@0630,1630 [facility] Last Admin: 12/18/22 06:34 Dose: 40 mg Pharmacy Consult (Consult Rx Perform Med Rec) 1 each MISCELLANE ONCE PRN PRN Reason: Consult order Sodium Chloride (0.9 % Sodium Chloride Flush 3 Ml Syringe) 3 ml IVFLUSH QSHIFT [facility] Last Admin: 12/18/22 08:21 Dose: 3 ml Trazodone HCl (Trazodone Hcl 100 Mg Tablet) 100 mg PO BEDTIME [facility] Last Admin: 12/17/22 21:39 Dose: 100 mg Allergies Allergies Allergy/AdvReac Type Severity Reaction Status Date / Time Iodinated Contrast Media AdvReac Intermediate Rash Verified 12/08/22 13:12 [IV CONTRAST] perflutren [From Definity] AdvReac Back Pain Verified 12/12/22 08:01 Assessment & Plan Assessment & Plan (1) Generalized anxiety disorder: Status: Acute Code(s): F41.1 - Generalized anxiety disorder Plan pt is a 62 yo female with hx of ....depression and anxiety PLAN: ADD Burpirone 5mg TID for help with anxiety/depression (according to [employer], no reported risk for Qtc prolongation) Total time managing care of this patient today ____ minutes. Patient educated on: diagnosis and medication risk/benefits Informed Consent: understands
[2022-12-18 16:30] LABS: Glucose, Whole Blood 176 mg/dL (60-115)
[2022-12-18 19:04] VITALS: BP 126/60; PULSE 66; RESP 20; TEMP 36.1; O2SAT 96
[2022-12-18 20:01] LABS: Glucose, Whole Blood 145 mg/dL (60-115)
[2022-12-18] MEDS: traZODone HCL 100 MG TABLET PO (21:19)
[2022-12-18] MEDS: busPIRone HCl 5 MG TABLET PO (21:19)
[2022-12-18] MEDS: Atorvastatin Calcium 40 MG TABLET PO (21:19)
[2022-12-19] VITALS: BP 115/62; PULSE 66; RESP 20; TEMP 36.1; O2SAT 92
--- NOTE | 2022-12-19 | ECG_ITS ---
Test Reason : qtc Blood Pressure : / mmHG Vent. Rate : 053 BPM Atrial Rate : 053 BPM P-R Int : 188 ms QRS Dur : 088 ms QT Int : 444 ms P-R-T Axes : 050 024 053 degrees QTc Int : 416 ms Sinus bradycardia Otherwise normal ECG When compared with ECG of 18-DEC-2022 14:27, Nonspecific T wave abnormality, improved in Anterolateral leads QT has shortened Referred By: Evelyn Crooks Electronically Signed By:THUY SHULTZ MD
[2022-12-19 03:25] VITALS: BP 128/66; PULSE 54; RESP 20; TEMP 36.1; O2SAT 94
[2022-12-19] MEDS: Omeprazole 40 MG CAPSULE.DR PO (06:34)
[2022-12-19 07:32] VITALS: BP 147/80; PULSE 61; RESP 20; TEMP 36.5; O2SAT 96
[2022-12-19 07:58] LABS: Glucose, Whole Blood 113 mg/dL (60-115)
[2022-12-19] MEDS: busPIRone HCl 5 MG TABLET PO (08:43)
[2022-12-19] MEDS: Apixaban 5 MG TABLET PO (08:43)
[2022-12-19] MEDS: amLODIPine Besylate 2.5 MG TABLET PO (08:43)
[2022-12-19] MEDS: FLUoxetine HCl 20 MG CAPSULE 40 MG PO (08:43)
[2022-12-19] MEDS: Loratadine 10 MG TABLET PO (08:43)
[2022-12-19] MEDS: 0.9 % Sodium Chloride Flush 3 ML SYRINGE IVFLUSH (08:43)
--- NOTE | 2022-12-19 10:28 | PM.PNCARD ---
Subjective Subjective Date of Service: 12/19/22 Principal diagnosis: Chest pain Interval history: Patient with no current chest pain. Awaiting resting study today Review of Systems Constitutional: Reports no additional constitutional complaints Eyes: Reports no additional eye complaints Cardiovascular: Reports no additional cardiovascular complaints Gastrointestinal: Reports no additional gastrointestinal complaints Psychiatric: Reports anxiety Physical Exam Vital Signs: Last Vital Signs Temp 97.7 F 12/19/22 07:32 Pulse 61 12/19/22 07:32 Resp 20 12/19/22 07:32 BP 147/80 H 12/19/22 07:32 Pulse Ox 96 12/19/22 07:32 O2 Del Method Room Air 12/19/22 07:32 O2 Flow Rate 2 12/16/22 07:23 BMI result Body Mass Index 39.6 GENERAL APPEARANCE: in no acute distress, pleasant. NECK: no carotid bruit, no jugular venous distention. SKIN: no suspicious lesions, warm and dry. HEART: no murmurs, regular rate and rhythm. LUNGS: clear to auscultation bilaterally. ABDOMEN: soft, nontender. EXTREMITIES: no edema. PERIPHERAL PULSES: equal. NEUROLOGIC: No gross deficits, AAO X 3 Objective Labs and Meds 12/15/22 12:09 12/15/22 12:09 Lab results: Laboratory Results - last 24 hr 12/18/22 12/18/22 12/18/22 11:33 16:17 19:49 POC Glucose 282 H 176 H 145 H 12/19/22 07:38 POC Glucose 113 Progress Note: A&P Assessment and plan (1) Atypical chest pain: Status: Acute Assessment and Plan: Patient present with atypical chest pain with negative workup so far. Could be related to anxiety. Awaiting resting perfusion study today. If this is within normal limits can be discharged home later today. (2) Essential hypertension: Status: Acute Assessment and Plan: Elevated blood pressure, increase amlodipine to 5 mg daily. Give additional 2.5 mg today. Target goal blood pressure less than 130/84. Most likely follow as outpatient Time Spent With Patient Time: Total time managing care of this patient today __15__ minutes. Progress Note: Quality Stroke Does the patient have a stroke diagnosis?: No Procedures Date of Service Date of Service: 12/19/22
--- NOTE | 2022-12-19 10:35 | MHC.CM.PN ---
EMR REVIEWED, PER CARDIOLOGY PT BE ABLE TO D/C LATER TODAY PENDING RESULTS OF STRESS TEST, PT ALSO SEEN BY PSYCHIATRIST AND BUSPAR 5MG TID ADDED TO MEDS. D/C PLAN REMAINS HOME NO SERVICES W/ FOR TRANSPORT.
[2022-12-19 11:40] LABS: Glucose, Whole Blood 125 mg/dL (60-115)
[2022-12-19 11:44] VITALS: BP 146/66; PULSE 68; RESP 20; TEMP 36.1; O2SAT 92
[2022-12-19] MEDS: Acetaminophen 325 MG TABLET 975 MG PO (13:16)
--- NOTE | 2022-12-19 13:19 | PM.DS ---
DS: Providers Provider Date of Service: 12/19/22 Date of admission: 12/15/22 19:05 Date of discharge: 12/19/22 Primary care physician: Flakita Calero MD Consults: 12/15/22 19:05 Consult to Cardiology Routine Consulting Provider: [facility] Reason for consultation: Chest pain after chemical stress test 12/16/22 18:03 Consult to Psychiatry Routine Consulting Provider: Psych Covering Reason for consultation: med adjustment for fluoxetine/tazodone -qt prolonged. 12/18/22 09:02 Consult to Psychiatry Routine Consulting Provider: Psych Covering Reason for consultation: possible psych med adjustment for qtc prolong Has provider been notified: No DS: Diagnosis Discharge Diagnosis (1) Atypical chest pain: Status: Acute (2) Essential hypertension: Status: Acute DS: Summary Hospital Course Hospital Course: 62-year-old female with a PMH significant for?HLD, HTN, [id number] diabetes, depression, hx of bilateral PE on 07/04/2013, PE on 11/16/2022, hx of right calf DVT on 07/02/2014, and hx of thyroid cancer who presents to the ED with chest pain. Pt was at cardiology appointment this morning to undergo chemical stress test.? Test was negative:? had chest pressure 7/10, without arrythmia, with normotensive response to injection, and with nonspecific ST and T-wave abnormality.? While waiting in recovery patient was reversed with Aminophylline but continued to experience mild chest pressure (4/10), worse with deep inspiration and with palpitations of LUQ. Chest pressure is centrally located, non-radiating, non-reproducible. EKG performed after stress test, showed normal sinus rhythm with no acute ST or T-wave abnormalities, same as prior EKG.? Pt given option of being evaluated in the ED and agreed, transported via wheelchair. Pt states she experienced some nausea while in waiting room, but no vomiting. In ED pt responded well to nitroglycerin, which alleviated her chest pain. Pt states pain is worse with exertion and inspiration, also experiences SOB with exertion.? At time of interview patient says she is feeling much better. Denies fever, chills, abdominal pain.? No palpitations.? Discussed case with ED who thought patient should be admitted to the hospital for workup for ACS?despite negative troponins and relatively benign EKG findings. In the ED patient was hypertensive up to 181/77. Labs were unremarkable.? Initial troponin negative at 3.2 with repeat negative at 3.2. CXR showed likely atelectasis in left basilar airspace, and possible trace left pleural effusion.? EKG in the ED showed normal sinus rhythm with nonspecific T-wave abnormality, similar to previous.? Repeat EKG showed possible first-degree AV block and nonspecific T-wave abnormality, similar to previous. Pt was treated with nitroglycerin and acetaminophen. Pt will be admitted to the hospital under observation for further evaluation of atypical chest pain. Hospital course: Patient was admitted for possible atypical chest pain: Troponin negative, telemetry seems fine, CT pulmonary angiogram for pulmonary embolism seems to be fine, in addition patient also had a stress test done and discussed with cardiology seems fine, follow up outpatient.Patient was also seen by psych: Added buspirone in addition to her current psych regimen. qtc seems better on ekg -d/w cardiology: continue home psych meds. Above management discussed the Cardiology chest pain seems atypical, possible muscular cutaneous versus anxiety might be contributing. Hypertension: Blood pressure is slightly suboptimal: Amlodipine adjusted 5 mg daily. plan: Amlodipine adjusted 5 mg daily for blood pressure. Chest pain cardiac workup seems fine, pain seems atypical possible muscular tightness versus anxiety might be contributing. Follow-up with PCP outpatient, cardiology may arrange their own appointment. Above management discussed with the patient in detail length she understand and in agreement with the above plan, time spent 50 minutes and 50% time spent on counseling. Time Spent with Patient Time attestation: Total time managing care of this patient today ____ minutes. Discharge coordination time: Greater than 30 minutes Quality: Safe Use of Opioids Does Pt have an Active Cancer Diagnosis on the Problem List?: No Quality: Stroke Does the patient have a stroke diagnosis?: No Physical Exam Vital Signs: Vital Signs: Last Vital Signs Temp 96.9 F 12/19/22 11:44 Pulse 68 12/19/22 11:44 Resp 20 12/19/22 11:44 BP 146/66 H 12/19/22 11:44 Pulse Ox 92 12/19/22 11:44 O2 Del Method Room Air 12/19/22 11:44 O2 Flow Rate 2 12/16/22 07:23 BMI result Body Mass Index 39.6 Appearance: Alert.? Oriented X3.? cvs: rrr, [id number] . res: clear to auscultation ,no rhonchii or wheezing abd: no rebound or guarding ,nt, bs present. ext pulses present , no cyanosis . neuro: axo3 , nonfocal. DS: Data Data Completed and Pending Labs on day of discharge: Laboratory Results - last 24 hr 12/18/22 12/18/22 12/19/22 16:17 19:49 07:38 POC Glucose 176 H 145 H 113 12/19/22 11:22 POC Glucose 125 H Imaging Chest x-ray: Radiologist's impression: ITS Impressions Chest X-Ray 12/15/22 16:47 IMPRESSION: 1. Few streaky left basilar airspace opacities favoring atelectasis. 2. Possible trace left pleural effusion. Chest CTA 12/16/22 18:57 IMPRESSION: 1. No evidence of acute pulmonary embolism. There is a linear web in the distal right main pulmonary artery extending into the segmental right lower lobe pulmonary artery. This is chronic related to prior pulmonary emboli. The pulmonary emboli seen on the CAT scan 11/16/2022 have regressed. 2. No acute abnormality of the chest VTE: negative Discharge Plan Discharge Anticipated Discharge Date/Time: 12/19/22 13:15 Patient Disposition: Home, Self-Care Discharge Diagnosis: chest pain, anxiety Referrals: Flakita Calero MD [Primary Care Provider] - 1 Week Discharge Medications: New buspirone 5 mg Tablet 5 mg PO TID Qty: 90 0RF Continued fluoxetine 20 mg capsule 40 mg PO DAILY Qty: 60 5RF metformin 500 mg tablet 500 mg PO DAILY Qty: 90 1RF apixaban 5 mg tablet 5 mg PO BID Qty: 60 5RF trazodone 100 mg tablet 100 mg PO BEDTIME Qty: 30 3RF cetirizine 10 mg Tablet 10 mg PO DAILY cholecalciferol (vitamin D3) 1,250 mcg (50,000 unit) capsule 1,250 mcg PO MO atorvastatin 40 mg tablet 40 mg PO BEDTIME omeprazole 40 mg capsule,delayed release(DR/EC) 40 mg PO BID@0630,1630 trospium 60 mg capsule,extended release 24hr 60 mg PO DAILY Changed amlodipine 2.5 mg tablet 5 mg PO DAILY Qty: 60 5RF Protocol: Hold for SBP< HOLD for SBP < : 90 Discharge Orders: Discharge Order (Routine); Ordered 12/19/22 Ordered By: Evelyn Crooks Diet: Advance to usual diet Activity on Discharge: As tolerated Stand Alone Forms: Patient Portal Discharge page Care Plan Goals: Patient was admitted for chest pain: Troponin negative, telemetry seems fine, CT pulmonary angiogram for pulmonary embolism seems to be fine, no new pulmonary embolism, in addition patient also had a stress test done and discussed with cardiology seems fine , follow up outpatient. Above management discussed the Cardiology chest pain seems atypical, possible muscular cutaneous versus anxiety might be contributing. Patient was also seen by psych: Added buspirone in addition to her current psych regimen. follow up with pcp outpatient. Health Concerns: As above. Plan of Treatment: As above. Assessment: As above. Patient Instructions: Chest Pain (DC), Anxiety (ED)
== END 2022-12-19 15:10 | disposition home or self-care (01) ==
LOC: HO.ED 19:16 → HO.EDOVER 19:18 → HO.IMC 19:22
PROVIDERS: Physician Assistant; Admitting Provider Student in an Organized Health Care Education/Training Program; Emergency Provider Student in an Organized Health Care Education/Training Program; PCP Internal Medicine; Visit Provider Internal Medicine
DX: R07.89 Other chest pain (principal); R94.31 Abnormal electrocardiogram [ECG] [EKG]; I10 Essential (primary) hypertension; I24.9 Acute ischemic heart disease, unspecified; R06.02 Shortness of breath; Z20.822 Contact with and (suspected) exposure to COVID-19; E11.9 Type 2 diabetes mellitus without complications; E78.5 Hyperlipidemia, unspecified; Z85.850 Personal history of malignant neoplasm of thyroid; Z86.711 Personal history of pulmonary embolism; Z87.891 Personal history of nicotine dependence; Z79.01 Long term (current) use of anticoagulants; Z79.02 Long term (current) use of antithrombotics/antiplatelets; Z79.84 Long term (current) use of oral hypoglycemic drugs; Z79.899 Other long term (current) drug therapy
CPT/HCPCS: 36415; 71045; 71275; 78452; 80048; 80076; 82947; 83735; 84484; 85025; 85610; 87635; 93005; 93017; 96361; 96374; 96375; 96376; 99222; 99285; A9500; J0280; J1200; J2785; J2920; Q9967

== ENCOUNTER → 2023-02-13 15:18 | Outpatient (BNVA) | payer MEDICARE, OTHER, SELFPAY | PROVIDERS: PCP Internal Medicine; Visit Provider Nurse Practitioner Family | DX: I26.99 Other pulmonary embolism without acute cor pulmonale (principal); R07.89 Other chest pain; R00.2 Palpitations | CPT/HCPCS: 99212 ==

== ENCOUNTER 2023-02-16 07:54 | Outpatient (REF) | payer MEDICARE, OTHER, SELFPAY ==
[2023-02-16 12:26] LABS: Estimated Average Glucose 137 mg/dL; Hemoglobin A1c % 6.4 %
[2023-02-16 12:32] LABS: Anion Gap 10 (12-20); Blood Urea Nitrogen 11 mg/dL (9-16); Calcium 9.1 mg/dL (8.4-10.2); Carbon Dioxide 26 mmol/L (22-29); Chloride 109 mmol/L (96-108); Cholesterol 124 mg/dL; Estimated Glomerular Filt Rate > 60; Glucose Fasting 135 mg/dL (60-99); HDL Cholesterol 31 mg/dL; LDL Cholesterol Calculated 71 mg/dl; Potassium 4.3 mmol/L (3.3-5.1); Sodium 141 mmol/L (135-145); Triglycerides 113 mg/dL; Vitamin D 25-OH Total 46.4 ng/mL (>30)
== END 2023-02-16 07:55 | disposition home or self-care (01) ==
LOC: HO.HMGCLDS 07:54
PROVIDERS: PCP Internal Medicine; Visit Provider Internal Medicine
DX: E11.29 Type 2 diabetes mellitus with other diabetic kidney complication (principal); E55.9 Vitamin D deficiency, unspecified; I10 Essential (primary) hypertension; R80.9 Proteinuria, unspecified; E78.5 Hyperlipidemia, unspecified
CPT/HCPCS: 36415; 80048; 80061; 82306; 83036

== ENCOUNTER 2023-04-24 12:25 | Outpatient (AMB) | payer MEDICARE, OTHER, SELFPAY ==
--- NOTE | 2023-04-24 13:44 | MHC.OFFWIV ---
Intake Vital Signs 04/24/23 13:46 Weight 202 lb BP 114/70 Blood Pressure Location Lt brachial Position Sitting Pulse 74 Pulse Source Pulse Oximeter Pulse Oximetry (%) 98 Oxygen Delivery Method Room Air Intake Visit Reasons: EP LT knee pain/swelling/hot to touch (lobby) Intake Note: Patient here for swelling around right knee and feels warm to the touch which has been present for about 5 days. Patient Tobacco Use Status: Former Tobacco user Quit Date: 20 yrs ago Allergies Iodinated Contrast Media [IV CONTRAST] Adverse Reaction (Intermediate, Verified 04/24/23 13:47) Rash capsaicin Adverse Reaction (Verified 04/24/23 13:47) Rash perflutren [From Definity] Adverse Reaction (Verified 04/24/23 13:47) Back Pain Medication List - Last Reconciled 04/24/23 by Arvin Shipley MD amlodipine 5 mg See Protocol PO DAILY atorvastatin 40 mg PO BEDTIME buspirone 5 mg PO TID cetirizine 10 mg PO DAILY fluoxetine 40 mg (2 x 20 mg) PO DAILY metformin 500 mg PO DAILY omeprazole 40 mg PO BID@0630,1630 trazodone 100 mg PO BEDTIME trospium ER 60 mg PO DAILY Do you need a note to return to daycare/school/sports/work: No HPI EP LT knee pain/swelling/hot to touch (lobby) HPI Details 63-year-old female presenting to the office for a sick visit. Patient is reporting pain in her left knee. Does not recall any fall or injury. [facility] Medical History (Updated 04/24/23 @ 14:40 by Arvin Shipley MD) Arthritis of first metatarsophalangeal (MTP) joint of left foot Calcaneal spur of left foot COPD (chronic obstructive pulmonary disease) COVID-19 vaccine series completed Depression, major, recurrent, in complete remission Deviated nasal septum Diabetes mellitus with microalbuminuria, without long-term current use of insulin Dyslipidemia Essential hypertension Generalized anxiety disorder GERD (gastroesophageal reflux disease) Herpes zoster History of COVID-19 History of pulmonary embolism History of thyroid cancer Intermittent palpitations Left shoulder tendinitis Primary hypertension Vitamin B12 deficiency Vitamin D deficiency Surgical History H/O spinal fusion History of cervical spinal surgery History of colonoscopy History of partial thyroidectomy History of shoulder surgery History of surgery History of tubal ligation Hx of left breast biopsy Family History Father Alcoholism Mother HTN (hypertension) Hyperlipidemia CVD (cardiovascular disease) Sister Hyperlipidemia Alcoholism Substance use disorder Brother No problems noted. Sister No problems noted. Sister No problems noted. Sister No problems noted. Daughter No problems noted. Daughter No problems noted. Social History Household Members: Spouse Household Members Other:: 2 Housing: House Do you presently have visiting nurse or other home services: No Alcohol intake: never Patient Tobacco Use Status: Former Tobacco user Quit Date: 20 yrs ago Years Smoked: 4 yrs e-Cigarette/Vaping Use: Never Used Second Hand Smoke Exposure: No service: No Current occupational status: disabled Cognitive needs: No Hearing needs: No Vision needs: Yes Physical Exam Vital Signs: Last Vital Signs Pulse 74 04/24/23 13:46 BP 114/70 04/24/23 13:46 Pulse Ox 98 04/24/23 13:46 Oxygen Delivery Method Room Air 04/24/23 13:46 Extrem Other: Left knee: Erythema in front of the patella. Patellar tenderness present. Assessment & Plan Assessment & Plan (1) Patellar tendinitis: Code(s): M76.50 - Patellar tendinitis, unspecified knee Plan: Meloxicam called in. Patient was advised rest. Increase fluid intake. Medications: Discontinued atorvastatin 40 mg PO DAILY 90 tabs 1RF omeprazole 40 mg PO BID 60 caps 3RF Coding Level of Care Code Est Pt Level 3 (61393) Diagnoses Patellar tendinitis M76.50
[2023-04-24 13:46] VITALS: BP 114/70; PULSE 74; O2SAT 98
== END 2023-04-24 14:44 | disposition home or self-care (01) ==
PROVIDERS: PCP Internal Medicine; Visit Provider Internal Medicine
DX: M76.50 Patellar tendinitis, unspecified knee (principal)
CPT/HCPCS: 99213

== ENCOUNTER 2023-05-22 07:45 | Outpatient (REF) | payer MEDICARE, OTHER, SELFPAY ==
[2023-05-22 12:07] LABS: Estimated Average Glucose 134 mg/dL; Hemoglobin A1c % 6.3 % (<6.0)
[2023-05-22 12:11] LABS: Alanine Aminotransferase 18 U/L (0-31); Anion Gap 10 (12-20); Aspartate Amino Transferase 14 U/L (5-31); Blood Urea Nitrogen 16 mg/dL (9-16); Calcium 9.2 mg/dL (8.4-10.2); Carbon Dioxide 29 mmol/L (22-29); Chloride 106 mmol/L (96-108); Cholesterol 142 mg/dL (<200); Estimated Glomerular Filt Rate > 60; Glucose Fasting 143 mg/dL (60-99); HDL Cholesterol 41 mg/dL (>40); LDL Cholesterol Calculated 77 mg/dL (<100); Potassium 4.1 mmol/L (3.3-5.1); Sodium 141 mmol/L (135-145); Triglycerides 122 mg/dL (<150)
== END 2023-05-22 07:46 | disposition home or self-care (01) ==
LOC: HO.HMGCLDS 07:45
PROVIDERS: PCP Internal Medicine; Visit Provider Internal Medicine
DX: I10 Essential (primary) hypertension (principal); R80.9 Proteinuria, unspecified; E11.29 Type 2 diabetes mellitus with other diabetic kidney complication; E78.5 Hyperlipidemia, unspecified
CPT/HCPCS: 36415; 80048; 80061; 83036; 84450; 84460

== ENCOUNTER 2023-05-23 08:33 | Outpatient (AMB) | payer MEDICARE, OTHER, SELFPAY ==
[2023-05-23 09:00] VITALS: BP 122/70; PULSE 65; O2SAT 96; BMI 36.0
--- NOTE | 2023-05-23 09:00 | A.OFFPC_ITS ---
Vital Signs 05/23/23 09:00 Height 5 ft 2 in Weight 197 lb BMI 36.0 BP 122/70 Blood Pressure Location Lt brachial Position Sitting Pulse 65 Pulse Source Pulse Oximeter Pulse Oximetry (%) 96 Oxygen Delivery Method Room Air Intake Visit Reasons: PE/secondary covers - due for colonoscopy Intake Note: patient is here for her PE Allergies Iodinated Contrast Media [IV CONTRAST] Adverse Reaction (Intermediate, Verified 05/23/23 09:47) Rash capsaicin Adverse Reaction (Verified 05/23/23 09:47) Rash perflutren [From Definity] Adverse Reaction (Verified 05/23/23 09:47) Back Pain Medication List - Last Reconciled 05/24/23 by Flakita Calero MD amlodipine 5 mg See Protocol PO DAILY apixaban (Eliquis) 5 mg PO BID atorvastatin 40 mg PO BEDTIME buspirone 5 mg PO TID cetirizine 10 mg PO DAILY fluoxetine 40 mg (2 x 20 mg) PO DAILY metformin 500 mg PO DAILY omeprazole 40 mg PO QPM PRN tolterodine ER 4 mg PO DAILY trazodone 100 mg PO BEDTIME Tobacco use date assessed: 05/23/23 Dental Screening Dental Screen Date: 05/23/23 Did you have a dental visit in the last 12 months?: No Did you have a dental problem in the last 6 months where you did not have access to dental care?: No Was dental information given to patient?: No HPI PE/secondary covers - due for colonoscopy HPI Details 63-year-old lady here today for her phys ical exam. She has history of pulmonary embolism, has diabetes mellitus, dyslipidemia, hypertension, generalized anxiety disorder stable controlled present treatment. She has an upcoming appointment to see genitourinary specialist Dr. Thomas for evaluation of pelvic organ prolapse as noted by her OBGYN. [facility] Medical History (Updated 05/24/23 @ 00:30 by Flakita Calero MD) Prolapse of female pelvic organs Prepatellar bursitis Primary hypertension Generalized anxiety disorder Intermittent palpitations COPD (chronic obstructive pulmonary disease) History of COVID-19 COVID-19 vaccine series completed Depression, major, recurrent, in complete remission Herpes zoster Left shoulder tendinitis GERD (gastroesophageal reflux disease) Vitamin D deficiency Vitamin B12 deficiency Calcaneal spur of left foot Arthritis of first metatarsophalangeal (MTP) joint of left foot Deviated nasal septum Diabetes mellitus with microalbuminuria, without long-term current use of insulin History of pulmonary embolism History of thyroid cancer Essential hypertension Dyslipidemia Surgical History Hx of left breast biopsy History of partial thyroidectomy History of surgery History of cervical spinal surgery History of shoulder surgery History of colonoscopy History of tubal ligation H/O spinal fusion Family History Father Alcoholism Mother HTN (hypertension) Hyperlipidemia CVD (cardiovascular disease) Sister Hyperlipidemia Alcoholism Substance use disorder Brother No problems noted. Sister No problems noted. Sister No problems noted. Sister No problems noted. Daughter No problems noted. Daughter No problems noted. Social History Household Members: Spouse Household Members Other:: 2 Housing: House Do you presently have visiting nurse or other home services: No Alcohol intake: never Patient Tobacco Use Status: Former Tobacco user Quit Date: 20 yrs ago Years Smoked: 4 yrs e-Cigarette/Vaping Use: Never Used Second Hand Smoke Exposure: No service: No Current occupational status: disabled Cognitive needs: No Hearing needs: No Vision needs: Yes Questionnaire PHQ-9 Over the last 2 weeks, how often have you been bothered by any of the following problems? 1. Little interest or pleasure in doing things: not at all 2. Feeling down, depressed, or hopeless: not at all 3. Trouble falling or staying asleep, or sleeping too much: not at all 4. Feeling tired or having little energy: not at all 5. Poor appetite or overeating: not at all 6. Feeling bad about yourself - or that you are a failure or have let yourself or your family down: not at all 7. Trouble concentrating on things, such as reading the newspaper or watching television: not at all 8. Moving or speaking so slowly that other people could have noticed. Or the opposite - being so fidgety or restless that you have been moving around a lot more than usual: not at all 9. Thoughts that you would be better off or of hurting yourself in some way: not at all Total score: 0 Depression Screening Interpretation: Negative 07232 - PHQ-9 Billing: Yes Source: Developed by Drs. Jose Etienne, Luz Falcon, Henrik Hernandez and colleagues, with an educational miesha from [employer]. Thrive Questionnaire Date Thrive assessed: 05/23/23 I am a: Patient What is your living situation today?: I have a steady place to live Within the past 12 months, did the food you bought not last and you didn't have the money to get more?: Never true Within the past 12 months, did you worry whether your food would run out before you got money to buy more?: Never true Do you have trouble paying for medicines?: No Do you have trouble getting transportation to medical appointments?: No Do you have trouble paying your heating and electricity bill?: No Do you have trouble taking care of your child, family member or friend?: No Do you have trouble with day-to-day activities such as bathing, preparing meals, shopping, managing finances, etc.?: No Are you currently unemployed and looking for a job?: No Are you interested in more education?: No AUDIT C Alcohol Use Questionnaire (AUDIT-C) 1. How often do you have a drink containing alcohol?: Never Total Score: 0 MARY-7 AMB Questionnaire MARY-7 Date MARY - 7 assessed: 05/23/23 Feeling nervous, anxious, or on edge: 0 = Not at all Not being able to stop or control worryin = Not at all Worrying too much about different things: 0 = Not at all Trouble relaxin = Not at all Being so restless that it is hard to sit still: 0 = Not at all Becoming easily annoyed or irritable: 0 = Not at all Feeling afraid as if something awful might happen: 0 = Not at all Total MARY-7 score (0-4 normal; 5-9 mild; 10-14 moderate; 15-21 severe): 0 Source: Developed by Drs. Jose Etienne, Luz Falcon, Henrik Hernandez and colleagues, with an educational miesha from [employer]. MARY-7 Assessment Billing MARY-7 Assessment Tool: MARY-7 Assessment 16928 Review of Systems Const Denies weakness Eyes Details: sees Dr. Tidwell at [facility] ENT Denies dizziness Card Denies chest pain, Denies chest pain with activity, Denies syncope, Denies rapid heart rate, Denies pedal edema, Denies edema, Denies leg edema, Denies lightheadedness, Denies palpitations, Denies dyspnea, Denies dyspnea on exertion and Denies orthopnea Resp Denies cough, Denies dyspnea and Denies dyspnea on exertion GI Denies hematochezia and Denies change in stool character Details: Sees Dr. Thomas for her urinary incontinence [facility] for routine Pap and pelvic exam Denies hot flashes, Reports urinary incontinence and Denies vaginal discharge Musc Denies abnormal gait, Denies muscle cramps, Denies muscle weakness, Denies numbness, Denies radiating pain into limb and Denies tingling Skin/Breast Denies breast pain, Denies breast mass, Denies change in breast shape, Denies lesions and Denies rash Neuro Denies abnormal gait, Denies dizziness, Denies syncope, Denies numbness, Denies tingling and Denies weakness Psych Reports no additional complaints Endo Denies palpitations David/Lymph Denies easy bleeding and Denies easy bruising Aller/Immun Reports no additional complaints Physical exam (Primary Care) Vital Signs: Last Vital Signs Pulse 65 05/23/23 09:00 BP 122/70 05/23/23 09:00 Pulse Ox 96 05/23/23 09:00 Oxygen Delivery Method Room Air 05/23/23 09:00 BMI result Body Mass Index 36.0 Tobacco/Smoking Status: Tobacco use Status Tobacco use date assessed 05/23/23 05/23/23 09:09 Patient Tobacco Use Status Former Tobacco user 05/23/23 09:03 Tobacco use type 02/13/23 15:56 e-Cigarette/Vaping Use Never Used 05/23/23 09:03 PHQ-9: PHQ-9 Score PHQ-9: Total score 0 05/23/23 11:55 Depression Screening Interpretation: Negative Thrive Assessment: Date of Thrive Assessment Date Thrive assessed 05/23/23 05/23/23 09:29 Const Other: Alert oriented x3, no acute distress noted ambulatory normal gait Orientation/consciousness: patient oriented x3 HENMT Other: Normocephalic, atraumatic General nose exam: Normal external nose present and No nasal discharge present Face and sinus: Yes sinuses nontender and Yes face symmetric Mouth: Normal oral and palatal mucosa present and moist mucous membranes Teeth and gingiva: edentulous Eyes General: appearance normal, both eyes and all related structures Neck Neck: Yes full ROM, Yes no lymphadenopathy and Yes supple Resp Effort & Inspection: normal respiratory effort and able to speak in complete sentences Auscultation: clear to auscultation bilaterally Cardio Other: S1-S2 present regular rate and rhythm GI Palpation (GI): Soft to palpation, nontender, no guarding and no masses General: Yes no CVA tenderness and Yes deferred (Currently being followed by her OBGYN and has an appointment with [facility]) Back/Spine/Pelvis Back: no CVA tenderness and No back tenderness Skin General skin exam: no rashes or lesions noted Neuro General: patient oriented x3, gait normal, moves all extremities, Normal light touch and pain sensation, no focal motor deficits and CN's II-XI intact bilaterally Extrem General: Yes full ROM, Yes no joint enlargement and Yes normal gait Psych Appearance: grossly normal and well kempt Mental Status: mental status grossly normal Speech and movement: Normal speech and movement present Affect: normal affect Attitude: cooperative Thought process: Normal thought process present Thought content: Normal thought content present Results Reviewed Results Reviewed: RUN: 05/23/23 1000 PAGE 1 [facility] [address] [place] [id number] Special Deputy Sheriff: Jamshid Oneal M.D. Specimen Inquiry Name: Ya Cameron Alize Age/Sex: 63/F : 1960 Unit#: [id number] Attend Dr: Flakita Calero MD Re05/22/23 Status: DEP REF Location: [facility] Disch: SPEC : [id number] DELFINO: 05/22/23 STATUS: COMP REQ : [id number] RECD: 05/22/[address]: Flakita Calero MD COMP: 05/22/23 ENTERED: 05/22/23 DR: ORDERED: Met Prof Fast, AST, ALT, Lipid Panel Test Result Flag Reference Site Sodium 141 135-145 mmol/L Potassium 4.1 3.3-5.1 mmol/L CL 106 96-108 mmol/L CO2 29 22-29 mmol/L Gap 10 L 12-20 BUN 16 9-16 mg/dL Creat 0.82 0.5-1.4 mg/dL EGFR > 60 NOTE: For -Spanish individuals, multiply the result by 1.210. Chronic Kidney Disease: Estimated GFR < 60 mL/min/1.73m2 Severe Kidney Disease: Estimated GFR < 15 mL/min/1.73m2 FBS 143 H 60-99 mg/dL A fasting glucose of 126 mg/dl or greater on more than one occasion is considered diagnostic of diabetes. CA 9.2 8.4-10.2 mg/dL AST (GOT) 14 5-31 U/L ALT (GPT) 18 0-31 U/L Triglyceride 122 <150 mg/dL Desirable Triglyceride: less than 150 mg/dL Borderline High Triglyceride 150-199 mg/dL High Triglyceride: 200-499 mg/dL Very High Triglyceride: greater than or equal to 5OO mg/dL Cholesterol 142 <200 mg/dL Desirable Cholesterol: less than 200 mg/dL Borderline High Cholesterol: 200-239 mg/dL High Cholesterol: greater than 239 mg/dL LDL Calculated 77 <100 mg/dL Desirable LDL: less than 100 mg/dL Near Optimal/Above Optimal LDL: 110-129 mg/dL Borderline High LDL: 130-159 mg/dL High LDL: 160-189 mg/dL Very High LDL: greater than or equal to 190 mg/dL HDL 41 >40 mg/dL Desirable HDL: greater than 40 mg/dL ENTERED: 05/22/[address]: ORDERED: Hgb A1c Test Result Flag Reference Site A1c % 6.3 H <6.0 % Hemoglobin A1C Reference Range Adults: 4.8 - 6.0 % Non diabetic: < 6.0 % Goal: < 7.0 % Additional Action Suggested: > 8.0 % Note: Hemoglobin A1c results are invalid for patients with abnormal amounts of HbF. Blood t ransfusions may impact the HbA1c concentration in the patient sample. Est. Avg. Gluc 134 mg/dL eAG = Estimated average glucose which is %A1C expressed as average glucose, using the formula of the [id number] Average Glucose study (ADAG), Diabetes Care, Vol.31,#8, 2007 Assessment and Plan Assessment & Plan (1) Annual visit for general adult medical examination with abnormal findings: Code(s): Z00.01 - Encounter for general adult medical examination with abnormal findings Plan: Reviewed recent fasting labs with patient Recommended dental visit every 6 months and regular yearly eye exams. Take adequate calcium in diet and vitamin- D 3 at 2000 IU per cap once a day, in addition to weight-bearing exercises to help maintain good muscle tone and weight control. Instructed to do self-breast exam, and continue to get yearly mammogram, requested copy of last bone density scan from Dr. Thomas's office. Declined getting any COVID booster, gets yearly flu shot, up-to-date with her pneumonia vaccination and Tdap, reminded to get her shingles vaccine. Up-to-date with her screening colonoscopy. (2) Essential hypertension: Comment: currently under control without meds for a few yrs. Code(s): I10 - Essential (primary) hypertension Plan: Blood pressure at goal of less than 130/80. Continue with current medication. Reinforced importance of following a low sodium diet, getting regular exercise, and lowering stress levels. (3) Diabetes mellitus with microalbuminuria, without long-term current use of insulin: Code(s): E11.29 - Type 2 diabetes mellitus with other diabetic kidney complication; R80.9 - Proteinuria, unspecified Plan: Recent lab results reviewed with patient, with sugar and hemoglobin A1c stable and at goal with A1c at a 6.3%. Continue metformin 500 mg once a day continue to check fasting blood sugar at home, maintain log and bring to next appointment for review. Reinforced diabetic diet and regular exercise with patient. Counseled regarding importance of yearly diabetes retinopathy screening. Patient advised to inspect feet daily, for any signs of injury, callus or infec tion. Compliance with diet and regular exercise again stressed. Blood pressure goal is less than 130/80, goal LDL is less than 100 and goal hemoglobin A1c is less than 7% follow-up appointment made in--4-months, after fasting labs done. (4) Dyslipidemia: Code(s): E78.5 - Hyperlipidemia, unspecified Plan: Reviewed recent fasting lipid profile with patient with improvement in her HDL cholesterol. Continue taking atorvastatin, and continue walking regularly for exercise. Continue with adherence to low-cholesterol diet and regular exercise, at least 30 minutes 3 to 4 times a week. Advised patient to make healthy food choices, eat more fruits, vegetables, whole grains, wild caught fish and low-fat dairy. Limit amount of meat and fried or fatty food products, as well as processed foods and fast foods. Follow-up scheduled with repeat fasting lipid panel in 4 months. (5) Intermittent palpitations: Code(s): R00.2 - Palpitations Plan: Followed by cardiology (6) Generalized anxiety disorder: Code(s): F41.1 - Generalized anxiety disorder Plan: Stable controlled on fluoxetine and buspirone which he takes twice a day only (7) Prolapse of female pelvic organs: Code(s): N81.9 - Female genital prolapse, unspecified Plan: Has an appointment with Dr. Thomas for evaluation and management (8) History of pulmonary embolism: Code(s): Z86.711 - Personal history of pulmonary embolism Plan: Negative for any clotting deficiencies, but has recurrent DVT and pulmonary embolism. 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 Orders: Orders Hemoglobin A1c 4 Months E11.29 - Type 2 diabetes mellitus with other diabetic kidney complication, E78.5 - Hyperlipidemia, unspecified, F41.1 - Generalized anxiety disorder, I10 - Essential (primary) hypertension, R00.2 - Palpitations, R80.9 - Proteinuria, unspecified, Z78.0 - Asymptomatic menopausal state Basic Metabolic Panel Fasting 4 Months E11.29 - Type 2 diabetes mellitus with other diabetic kidney complication, E78.5 - Hyperlipidemia, unspecified, F41.1 - Generalized anxiety disorder, I10 - Essential (primary) hypertension, R00.2 - Palpitations, R80.9 - Proteinuria, unspecified, Z78.0 - Asymptomatic menopausal state Alanine Aminotransferase 4 Months E11.29 - Type 2 diabetes mellitus with other diabetic kidney complication, E78.5 - Hyperlipidemia, unspecified, F41.1 - Generalized anxiety disorder, I10 - Essential (primary) hypertension, R00.2 - Palpitations, R80.9 - Proteinuria, unspecified, Z78.0 - Asymptomatic menopausal state Aspartate Amino Transferase 4 Months E11.29 - Type 2 diabetes mellitus with other diabetic kidney complication, E78.5 - Hyperlipidemia, unspecified, F41.1 - Generalized anxiety disorder, I10 - Essential (primary) hypertension, R00.2 - Palpitations, R80.9 - Proteinuria, unspecified, Z78.0 - Asymptomatic menopausal state Lipid Panel 4 Months E11.29 - Type 2 diabetes mellitus with other diabetic kidney complication, E78.5 - Hyperlipidemia, unspecified, F41.1 - Generalized anxiety disorder, I10 - Essential (primary) hypertension, R00.2 - Palpitations, R80.9 - Proteinuria, unspecified, Z78.0 - Asymptomatic menopausal state Vitamin D 25-OH Total 4 Months E11.29 - Type 2 diabetes mellitus with other diabetic kidney complication, E78.5 - Hyperlipidemia, unspecified, F41.1 - Generalized anxiety disorder, I10 - Essential (primary) hypertension, R00.2 - Palpitations, R80.9 - Proteinuria, unspecified, Z78.0 - Asymptomatic menopausal state Microalbumin, Random (w Creat) 4 Months E11. - Type 2 diabetes mellitus with other diabetic kidney complication, E78.5 - Hyperlipidemia, unspecified, F41.1 - Generalized anxiety disorder, I10 - Essential (primary) hypertension, R00.2 - Palpitations, R80.9 - Proteinuria, unspecified, Z78.0 - Asymptomatic menopausal state Medications: Changed From omeprazole 40 mg PO QPM To omeprazole 40 mg PO QPM PRN 30 caps 5RF Heartburn symptoms Coding Level of Care Code Est Pt Prev Care 40-64y(78958) Diagnoses Annual visit for general adult medical examination with abnormal findings Z00.01 Essential hypertension I10 Diabetes mellitus with microalbuminuria, without long-term current use of insulin E11.; R80.9 Dyslipidemia E78.5 Intermittent palpitations R00.2 Generalized anxiety disorder F41.1 Prolapse of female pelvic organs N81.9 History of pulmonary embolism Z86.711 Additional Codes MARY-7 Assessment Billing - MARY-7 Assessment Tool: MARY-7 Assessment 08745 ([id number])
== END 2023-05-23 10:10 | disposition home or self-care (01) ==
PROVIDERS: PCP Internal Medicine; Visit Provider Internal Medicine
DX: Z00.01 Encounter for general adult medical examination with abnormal findings (principal); I10 Essential (primary) hypertension; E11.29 Type 2 diabetes mellitus with other diabetic kidney complication; Z86.711 Personal history of pulmonary embolism; R80.9 Proteinuria, unspecified; E78.5 Hyperlipidemia, unspecified; R00.2 Palpitations; F41.1 Generalized anxiety disorder; N81.9 Female genital prolapse, unspecified
CPT/HCPCS: 99396

== ENCOUNTER 2023-08-13 08:29 | Emergency (ER) | payer MEDICARE, OTHER, SELFPAY ==
--- NOTE | ~2023-08-13 | CT_ITS ---
EXAMINATION: CT ABDOMEN AND PELVIS WITHOUT CONTRAST CLINICAL INFORMATION: Flank pain COMPARISON: CT abdomen 07/14/2022 TECHNIQUE: Multidetector volumetric imaging was performed from the superior aspect of the liver through the pubic symphysis. Sagittal and coronal reformatted images were obtained on the technologist's workstation. This CT examination was performed using dose optimization techniques as appropriate, variously including the following: *Automated exposure control *Adjustment of mA and/or kV according to patient size (this includes techniques or standardized protocols for targeted exams where dose is matched to indication/reason for exam; i.e. extremities or head) *Use of iterative reconstruction technique DLP: 903 mGy-cm FINDINGS: LUNG BASES: Bibasilar atelectasis. The previously seen tiny nodules are not clearly visualized. Mild coronary artery calcification. No pericardial or pleural effusion. LIVER, GALLBLADDER, AND BILIARY TREE: The liver is normal in size, shape, and attenuation. No focal hepatic lesion or biliary ductal dilatation is present. The gallbladder is unremarkable with no evidence of radiopaque gallstones, gallbladder wall thickening, or obvious pericholecystic inflammatory changes. PANCREAS: Unremarkable. No acute inflammatory changes. SPLEEN: Unremarkable. ADRENAL GLANDS: Unremarkable. KIDNEYS AND URETERS: Redemonstrated is a 2.4 cm simple cyst in the lower pole left kidney, for which no follow-up is indicated. Stable punctate calcification in the upper pole left kidney. No right renal calculi. 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 No ureteral calculi. No hydronephrosis. BLADDER: Unremarkable. GASTROINTESTINAL TRACT: Stomach is nondistended. No bowel obstruction. No bowel inflammatory changes identified. Stomach is partially distended. Normal appendix. No ascites. No free air. ABDOMINAL WALL: No significant hernia is appreciated. LYMPH NODES: No lymphadenopathy seen. VASCULAR: Scattered atherosclerotic vascular calcification. PELVIC VISCERA: Unremarkable. OSSEOUS STRUCTURES: No acute or suspicious osseous abnormality. CT/CT abdomen pelvis wo IV con IMPRESSION: 1. No evidence of hydronephrosis. No radiopaque calculi within the collecting system. 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 Additional findings as detailed above. 2. No acute intra-abdominal findings otherwise identified.. Fleischner guidelines were followed.
[2023-08-13 08:38] VITALS: BP 130/79; PULSE 74; RESP 17; TEMP 36.9; O2SAT 97; BMI 36.6
--- OUTSIDE RECORDS SUMMARY | 2023-08-13 08:59 | XMS_ITS | Continuity of Care Document ---
Author Name Unknown Organization [facility] Julio lt Address [address] [place] [address]- Care Team Providers Care Vocational Evaluator Name Role Phone Not on Staff, PCP Primary Care Physician Unavail able Encounter [facility] Date(s): 10/13/21 - 11/27/21 [facility] [address] [place] [address]- Attending Physician: Not on Staff, Attending MD Referring Physician: Gene Reyes MD Allergies, Adverse Reactions, Alerts Substance Reaction Severity Status Contrast Dye Active Immunizations Given and Recorded Vaccine Date Status Refusal Reason influenza virus vaccine, inactivated 06/07/21 Low rded influenza virus vaccine, inactivated 06/03/20 Low rded influenza virus vaccine, inactivated 06/12/19 Low rded influenza virus vaccine, inactivated 05/28/18 Low rded influenza virus vaccine, inactivated 06/21/17 Low rded influenza virus vaccine, inactivated 05/25/17 Low rded influenza virus vaccine, inactivated 06/20/16 Low rded tetanus/diphtheria/pertussis, acel(Tdap) 09/26/19 Recorded Medications Atorvastatin 80 mg, By Mouth, Daily at bedtime, Maintenance, 05/27/14 8:55:36 Start Date: 05/27/14 Status: Ordered Cymbalta 30 mg oral enteric coated capsule 1 capsule = 30 mg, By Mouth, 2 times a day, 0 Refills, Maintenance, 05/27/14 8:54:50 Start Date: 05/27/14 Status: Ordered Dexilant 60 mg oral delayed release capsule 1 capsule, By Mouth, Daily, # 30 capsule, 0 Refills, Maintenance, 05/27/14 8:53:42, EC Capsule Start Date: 05/27/14 Status: Ordered Lasix 20 mg oral tablet 1 tablet = 20 mg, By Mouth, Daily, Do not take at or near bedtime, # 3 tablet, 0 Refills Start Date: 03/28/09 Stop Date: 04/27/09 Status: Ordered Lyrica 150 mg oral capsule 1 capsule = 150 mg, By Mouth, 2 times a day, 0 Refills, Maintenance, 05/27/14 8:55:03 Start Date: 05/27/14 Status: Ordered Metformin = 500 mg, By Mouth, 0 Refills, Maintenance, 05/27/14 8:54:28 Start Date: 05/27/14 Status: Ordered Metoprolol Succinate ER By Mouth, Daily, 0 Refills, Maintenance, 05/27/14 8:54:09 Start Date: 05/27/14 Status: Ordered Percocet-5/325 325 mg-5 mg oral tablet 1 tablet, By Mouth, Every 4 hours, PRN Pain, # 12 tablet, 0 Refills Start Date: 03/28/09 Stop Date: 04/04/09 Status: Ordered Percocet-5/325 325 mg-5 mg oral tablet 1 tablet, By Mouth, Every 4 hours, PRN Pain, # 12 tablet, 0 Refills Start Date: 03/28/09 Stop Date: 04/04/09 Status: Ordered Quetiapine 25 mg, By Mouth, Maintenance, 05/27/14 8:55:18 Start Date: 05/27/14 Status: Ordered Warfarin 5 mg, Daily, Maintenance, 05/27/14 8:56:36 Start Date: 05/27/14 Status: Ordered Problem List Condition Effective Dates Status Health Status Inform ant Sleep apnea(Confirmed) Active Social History Social History Type Response Smoking Status Never smoker entered on: 05/27/14 Sex
--- OUTSIDE RECORDS SUMMARY | 2023-08-13 08:59 | XMS_ITS | Continuity of Care Document ---
Author Name Unknown Organization [facility] Melvin jocelyn Address [address] [place] [address] [address] [place] [address]- Care Team Providers Care Cook Ice Cream Name Role Phone Abdias QUIROZ, Flakita [place] Primary Care Physician [place] [facility] [place] - 04/[place]/22 [facility] [address] [place], [place] [address] Attending Physician: Admtr, Ar8 Admitting Physician: Admtr, Ar8 Referring Physician: Admtr, Ar8 Allergies, Adverse Reactions, Alerts Substance Reaction Severity [...] Low rded tetanus/diphtheria/pertussis, acel(Tdap) 09/26/19 Recorded Medications atorvastatin 40 mg oral tablet 1 tablet = 40 mg, By Mouth, Daily, # 90 tablet, 0 Refills, Maintenance, 02/14/22 9:28:00 EDT, Tablet, Partial fill upon patient request if the prescription is for a schedule II opioid drug. Start Date: 02/14/22 Status: Ordered FLUoxetine 20 mg oral capsule 20 mg, 1, capsule, By Mouth, Daily, # 30 capsule, Refills 0, Maintenance, 02/14/22 9:28:00 EDT, Partial fill upon patient request if the prescription is for a schedule II opioid drug. Start Date: 02/14/22 Status: Ordered metFORMIN 500 mg oral tablet TAKE ONE TABLET BY MOUTH EVERY DAY Start Date: 02/14/22 Status: Ordered omeprazole 40 mg oral enteric coated capsule 1 capsule = 40 mg, By Mouth, Daily, # 30 capsule, 0 Refills, Maintenance, 02/14/22 9:28:00 EDT, EC Capsule, Partial fill upon patient request if the prescription is for a schedule II opioid drug. Start Date: 02/14/22 Status: Ordered traZODone 100 mg oral tablet Refills 0, Maintenance, 02/14/22 9:28:00 EDT, Partial fill upon patient request if the prescriptionis for a schedule II opioid drug. Start Date: 02/14/22 Status: Ordered trospium 60 mg oral capsule, extended release 1 capsule = 60 mg, By Mouth, Daily in AM, # 30 capsule, 0 Refills, Maintenance, 02/14/22 9:28:00 EDT, CR Capsule, Partial fill upon patient request if the prescription is for a schedule II opioid drug. Start Date: 02/14/22 Status: Ordered Problem List Condition Effective Dates Status Health Status Inform ant Sleep apnea(Confirmed) Active Social History Social History Type Response Smoking Status Never smoker entered on: 05/27/14 Sex
--- OUTSIDE RECORDS SUMMARY | 2023-08-13 08:59 | XMS_ITS | Continuity of Care Document ---
Author Name Unknown Organization [facility] Address [address] [place] [address]- Care Team Providers Care Medical Transcription Supervisor Name Role Phone Abdias QUIROZ, Flakita Vegas Primary Care Physician En[place] [facility] [place] Date(s): 11/29/19 - 12/09/19 [facility] [address] [address]- [facility] Attending Physician: Israel Mullins Admitting Physician: Israel Mullins Referring Physician: AdmtrIsrael Allergies, Adverse Reactions, Alerts Substance Reaction Severity Status Contrast Dye Active Medications Atorvastatin 80 mg, By Mouth, Daily [...]
--- OUTSIDE RECORDS SUMMARY | 2023-08-13 08:59 | XMS_ITS | Continuity of Care Document ---
Author Name Unknown Organization [facility] jocelyn Address [address] [place] [address] [address] [place] [address]- Care Team Providers Care Oncology Specialist Name Role Phone Not on Staff, PCP Primary Care Physician Unavail able Encounter [facility] Date(s): 02/14/22 - 02/21/[address] [place] [address]- Attending Physician: Tylor Bowens MD Referring Physician: Not on Staff, Referring MD Allergies, Adverse Reactions, Alerts Substance Reaction [...] Health Status Inform ant Sleep apnea(Confirmed) Active Vital Signs Most recent to oldest [Reference Range]: 1 Weight 89.7 kg (02/14/22 9:25 AM) Oxygen Saturation [94-100 %] 97 % (02/14/22 9:25 AM) Pulse Rate [55-90 bpm] 85 bpm (02/14/22 9:25 AM) Blood Pressure [90-138/55-84 mm Hg] 131/ 75mm Hg (02/14/22 9:25 AM) Blood pressure sites Arm, left (02/14/22 9:25 AM) Social History Social History Type Response Smoking Status Never smoker entered on: 05/27/14 Sex
--- OUTSIDE RECORDS SUMMARY | 2023-08-13 08:59 | XMS_ITS | Continuity of Care Document ---
Author Name Unknown Organization [facility] jocelyn Address [address] [place] [address] [address] [place] [address]- Care Team Providers Care Space Operations Officer Name Role Phone Abdais QUIROZ, Flakita Vegas Primary Care Physician Encounter [facility] [place] Date(s): 03/07/22 - 03/14/22 [facility] [address] [place] [address]- Attending Physician: Tylor Bowens MD Referring Physician: Abdias QUIROZ , Flakita Vegas Allergies, Adverse Reactions, Alerts Substance Reaction Severity [...] recent to oldest [Reference Range]: 1 Weight 90.9 kg (03/07/22 2:35 PM) Pulse Rate [55-90 bpm] 89 bpm (03/07/22 2:35 PM) Blood Pressure [90-138/55-84 mm Hg] 143/ 78mm Hg *H* (03/07/22 2:35 PM) Blood pressure sites Arm, right (03/07/22 2:35 PM) Social History Social History Type Response Smoking Status Never smoker entered on: 05/27/14 Sex
--- OUTSIDE RECORDS SUMMARY | 2023-08-13 08:59 | XMS_ITS | Continuity of Care Document ---
Author Name Unknown Organization [facility] Julio lt Address [address] [place] [address]- Care Team Providers Care Loan Closer Name Role Phone Not on Staff, PCP Primary Care Physician Unavail able Encounter [facility] Date(s): 10/28/21 - 11/27/21 [facility] [address] [place] [address]- Attending Physician: Admtr, Ar8 Admitting Physician: Admtr, [...] Health Status Inform ant Sleep apnea(Confirmed) Active Procedures Procedure Date Related Diagnosis Body Site Status CPAP treatment 1 05/07/14 Complete d Polysomnogram 2 03/23/14 Completed Barium swallow 3 11/19/12 Complete d 11. Patient should be started on auto-CPAP 8 to 14 cm of H2O with a heated humidifier. Recommend ordering a machine with compliance data capabilities and following residual AHI. 2The apnea/hypopnea index (AHI) was 5.8/hour and respiratory index (RI) was 7.2/hour. The lowest oxygen saturation was 83%. 3Slow gastric emptying and undigested food in stomach, not secondary to gastric outlet obstruction. Otherwise unremarkable study of the upper GI tract. Social History Social History Type Response Smoking Status Never smoker entered on: 05/27/14 Sex
--- OUTSIDE RECORDS SUMMARY | 2023-08-13 08:59 | XMS_ITS | Continuity of Care Document ---
Author Name Unknown Organization [facility] jocelyn Address [address] [place] [address] [address] [place] [address]- Care Team Providers Care Pouring Crane Operator Name Role Phone Abdias QUIROZ, Flakita Vegas Primary Care Physician Encounter [facility] [place] Date(s): 02/28/22 - 03/30/22 [facility] [address] [place] [address]- Allergies, Adverse Reactions, Alerts Substance Reaction Severity [...]
--- OUTSIDE RECORDS SUMMARY | 2023-08-13 08:59 | XMS_ITS | Continuity of Care Document ---
Author Name Unknown Organization [facility] Address [address] [place] [address]- Care Team Providers Care Clinical Account Liaison Name Role Phone Abdias QUIROZ, Flakita Vegas Primary Care Physician [place] [facility] [place] - 10/02/[address] [address]- [facility] Attending Physician: William QUIROZ, Tylor Connor Allergies, Adverse Reactions, Alerts Substance Reaction Severity [...] Health Status Inform ant Sleep apnea(Confirmed) Active Results Microbiology Reports TEST:Urine Culture STATUS:Auth (Verified) BODY SITE: SOURCE:URINE COLLECTED DATE/TIME:09/25/19 9:50 AM Urine Culture SPECIMEN DESCRIPTION : URINE CLEAN CATCH/MIDSTREAM SPECIAL REQUESTS : NONE CULTURE : >100,000 COL/ML ESCHERICHIA COLI REPORT STATUS : FINAL 09/27/2019 ORGANISM >100,000 COL/ML ESCHERICHIA COLI METHOD MIN. INHIB. CONC. (MCG/ML) AMPICILLIN SUSCEPTIBLE AMPICILLIN/SULBACTAM SUSCEPTIBLE AMOXICILLIN/CLAVULAN SUSCEPTIBLE CEFAZOLIN SUSCEPTIBLE CEFEPIME SUSCEPTIBLE CEFTRIAXONE SUSCEPTIBLE CIPROFLOXACIN SUSCEPTIBLE GENTAMICIN SUSCEPTIBLE LEVOFLOXACIN SUSCEPTIBLE MEROPENEM SUSCEPTIBLE NITROFURANTOIN SUSCEPTIBLE PIPERACILLIN/TAZOBAC SUSCEPTIBLE TRIMETH/SULFAMETHOX SUSCEPTIBLE TETRACYCLINE SUSCEPTIBLE Social History Social History Type Response Smoking Status Never smoker entered on: 05/27/14 Sex
--- OUTSIDE RECORDS SUMMARY | 2023-08-13 09:00 | XMS_ITS | Patient Health Record ---
Author Name Unknown [facility] Address [address] [place] [address] Care Team Providers Care Time Signal Wirer Name Role Phone Abdias QUIROZ, Flakita Bowens Primary Care Provider Un available Elena Mejia Unavailable [phone] ALLERGIES Allergen (clinical drug ingredient) Drug/Non Drug Allergy documented on EMR Reaction Allergy Type Onset Date Status povidone-iodine Povidone Iodine Unknown Drug Allergy Active REASON FOR REFERRAL No Information MEDICATIONS Medication SIG (Take, Route, Frequency, Duration) Notes Start Date End Date Status Metformin & Diet Manage Prod 500mg twice a day Active Lisinopril & Diet Manage Prod Not-Taking Feldene 20 MG 1 capsule with food Orally Once a day for 30 day(s) 07/07/2021 Not-Taking QUEtiapine Fumarate Not-Taking Metoprolol & Diet Manage Prod Not-Taking Trospium Chloride 60mg once a day at night Active Xarelto Not-Taking Albuterol Sulfate HFA Active Omeprazole Not-Takin g Fluoxetine Active Keflex 500 MG 1 capsule Orally every 12 hrs for 7 days 06/13/2017 Not-Taking traZODone HCl 100 MG 1 tablet at bedtime Orally Once a day for 30 day(s) Active Lipitor Not-Taking oxyBUTYnin Not-Takin g Atorvastatin Calcium Active IMMUNIZATIONS Vaccine Route Administration Date Status Comme nts Influenza Unknown 06/24/2015 Administered Influenza Unknown 06/29/2016 Administered Influenza Unknown 05/15/2017 Administered Influenza Unknown 05/15/2017 Administered Pneumococcal Unknown 06/24/2015 Administered SOCIAL HISTORY Tobacco Use: Social History Observation Description Date Details (start date - stop date) Former Smoker NA - NA Sex Assigned At : Social History Observation Description Sex Assigned At Unknown Tobacco Use/Smoking Question Answer Notes Are you a: former smoker Additional Findings: Tobacco Non-User Current no n-smoker Alcohol Screen Question Answer Notes Did you have a drink contain ing alcohol in the past year? Yes How often did you have a dri nk containing alcohol in the past year? Monthly or less (1 point) Points 1 Interpretation Negative Tobacco use other than smoking: Question Answer Notes Are you an other tobacco user? No PROBLEMS Problem Type ICD Code Onset Dates Problem Status W/U Status Risk SNOMED Code Notes Problem Type 2 diabetes mellitus without complications (E11.9) Active confirmed Type II diabetes mellitus without complication (382026692) Problem Osteoarthritis of left ankle and foot (M19.072) Active confirmed 75741796 PLAN OF TREATMENT Pending Test Test Name Order Date X ray : Foot, left 3V 07/07/2021 [id number] NAIL, 1-5 06/06/2016 [id number] Plate 05/23/2016 [id number] Plate 01/17/2017 [id number] 06/13/2017 25296- Debride <25 sq cm 07/11/2017 79659- Debride <25 sq cm 07/25/2017 20470- Debride <25 sq cm 07/21/2015 [id number] SKIN/TISSUE 06/27/2017 12853 I&D ABSCESS- SIMPLE,SINGLE 015 [id number] I&D ABSCESS- SIMPLE,SINGLE 015 Insurance Providers Payer Name Payer Address Payer Phone Subscriber Number Group Number Insured Name Patient Relationship to Insured Coverage Start Date Coverage End Date [employer] [address] [place] [phone] [id number] Ya Cameron Self - patient is the insured [facility] [address] [place] [address] [id number] Ya Cameron Self - patient is the insured MEDICAL (GENERAL) HISTORY Medical History History ICD Code Depression Gastroesophageal reflux disease (GERD) Diabetes mellitus Anxiety Arthritis Hypertension Joint implants/screws orthostatic hypotension gastroparesis abnormal mammogram vitamin D deficiency chronic idiopathic urtricaria deep vein thrombosis dyslipidemia vasovagal syncope neurodermatitis bilateral pulmonary embolism thyroid cancer Back,Hip,and Knee pain Surgical History Surgery Date(Month/Year) tubal ligation cancer surgery bone surgery neck surgery, front & back right shoulder surgery 08/03/2015 Hospitalization History Reason Date(Month/Year) Kerri right shoulder surgery 08/03/15
[2023-08-13 09:29] VITALS: BP 155/70; PULSE 70; RESP 18; O2SAT 96
--- NOTE | 2023-08-13 09:38 | PC.NURSE ---
pt is alert and oriented, skin pwd, respirations even and unlabored, pt reports for about one week having right sided flank pain, denies urinary symptoms but also states that she never gets any symptoms and that she is prone to uti's, denies nausea but also having a headache
[2023-08-13 09:41] LABS: Appearance Urine Hazy; Color Urine Yellow; Glucose Urine UA Negative (Negative); Leukocyte Esterase Urine Negative (Negative); Nitrite Urine Positive (Negative); UMIC TRIGGER UACC YES; Urine Blood Trace (Negative); Urine Ketones Negative (Negative); Urine Protein Negative (Neg-Trace)
[2023-08-13 09:47] LABS: Bacteria Urine 4+ (None Seen); Hyaline Casts Urine 0-2 /LPF (0-2); RBC Urine 0-2 /HPF (0-2); UACC Culture Trigger YES; WBC Urine 0-5 /HPF (0-5)
--- NOTE | 2023-08-13 10:21 | ED.FEMALEGU ---
HPI - Female Genitourinary General Chief complaint: Urogenital-Female Stated complaint: R side back pain Time Seen by Provider: 08/13/23 10:10 Source: patient and RN notes reviewed Mode of arrival: ambulatory Limitations: no limitations History of Present Illness HPI Narrative: This is a 63-year-old female, with a history of hypertension, pulmonary embolism on Eliquis, diabetes, arthritis, GERD, anxiety, hypertension, presenting to the emergency department for evaluation of right flank pain x1 week. Patient states that over the past week she has had right back pain that is now radiating into her right abdomen. She denies any dysuria, hematuria, urinary frequency or urgency. No fevers or chills. Denies any headaches, chest pain, shortness breath, nausea or vomiting. She states that she has a history of urinary tract infections in typically she does not have many symptoms when she gets them. However she states that she has never had back pain with urinary tract infections. Denies history of kidney stones. No other complaints or concerns at this time. MD elicited complaint: UTI and flank pain Pertinent past history: recurrent UTIs Onset (ago): day(s) Severity: moderate Vaginal discharge: none Vaginal bleeding: none Exacerbating factors: none Relieving factors: none Associated symptoms: denies other symptoms Treatment prior to arrival: none Sexual activity: No Patient : No Related Data Home Medications Medication Instructions Recorded Confirmed cetirizine 10 mg tablet 10 mg PO DAILY 02/13/23 05/24/23 tolterodine 4 mg capsule,extended 4 mg PO DAILY 05/23/23 05/23/23 release 24 hr Previous Rx's Medication Instructions Recorded metformin 500 mg tablet 500 mg PO DAILY #90 tabs 11/18/22 amlodipine 2.5 mg tablet 5 mg PO DAILY #60 tabs 12/19/22 trazodone 100 mg tablet 100 mg PO BEDTIME #30 caps 04/12/23 atorvastatin 40 mg tablet 40 mg PO BEDTIME #90 tabs 05/19/23 omeprazole 40 mg capsule,delayed 40 mg PO QPM PRN Heartburn 05/23/23 release symptoms #30 caps apixaban 5 mg tablet (Eliquis) 5 mg PO BID #60 tabs 06/12/23 buspirone 5 mg tablet 5 mg PO TID #90 tabs 07/10/23 fluoxetine 20 mg capsule 40 mg (2 x 20 mg) PO DAILY #60 caps 07/10/23 cefuroxime axetil 500 mg tablet 500 mg PO BID 7 days #13 tabs 08/13/23 Allergies Allergy/AdvReac Type Severity Reaction Status Date / Time Iodinated Contrast Media AdvReac Intermediate Rash Verified 08/13/23 08:37 [IV CONTRAST] capsaicin AdvReac Rash Verified 08/13/23 08:37 perflutren [From Definity] AdvReac Back Pain Verified 08/13/23 08:37 Review of Systems Review of Systems: Yes all other systems are reviewed and are negative Constitutional: Constitutional: Reports as per [facility] Past Medical History Attestation statement: The following information was validated with the patient. Medical History Prolapse of female pelvic organs Prepatellar bursitis Primary hypertension Generalized anxiety disorder Intermittent palpitations COPD (chronic obstructive pulmonary disease) History of COVID-19 COVID-19 vaccine series completed Depression, major, recurrent, in complete remission Herpes zoster Left shoulder tendinitis GERD (gastroesophageal reflux disease) Vitamin D deficiency Vitamin B12 deficiency Calcaneal spur of left foot Arthritis of first metatarsophalangeal (MTP) joint of left foot Deviated nasal septum Diabetes mellitus with microalbuminuria, without long-term current use of insulin History of pulmonary embolism History of thyroid cancer Essential hypertension Dyslipidemia Surgical History Hx of left breast biopsy History of partial thyroidectomy History of surgery History of cervical spinal surgery History of shoulder surgery History of colonoscopy History of tubal ligation H/O spinal fusion Family History Family History Father Alcoholism Mother HTN (hypertension) Hyperlipidemia CVD (cardiovascular disease) Sister Hyperlipidemia Alcoholism Substance use disorder Brother No problems noted. Sister No problems noted. Sister No problems noted. Sister No problems noted. Daughter No problems noted. Daughter No problems noted. Social History Social History Household Members: Spouse Household Members Other:: 2 Housing: House Do you presently have visiting nurse or other home services: No Alcohol intake: never Patient Tobacco Use Status: Former Tobacco user Quit Date: 20 yrs ago Years Smoked: 4 yrs Smoked in Last 30 Days: No e-Cigarette/Vaping Use: Never Used Second Hand Smoke Exposure: No Use of substances other than those prescribed or required for medical reasons: No Advance Directives: No Patient : No service: No Current occupational status: disabled Cognitive needs: No Hearing needs: No Vision needs: Yes Physical Exam Vital Signs: Vital Signs: Last Vital Signs Temp 97.8 F 08/13/23 11:03 Pulse 62 08/13/23 11:03 Resp 16 08/13/23 11:03 BP 155/70 H 08/13/23 09:29 Pulse Ox 97 08/13/23 11:03 O2 Del Method Room Air 08/13/23 11:03 BMI result Body Mass Index 36.6 Const: General: cooperative, comfortable and no acute distress Orientation/consciousness: patient oriented x3 Limitations: no limitations HEENT: Head: Yes normal to inspection, Yes normocephalic and Yes atraumatic Ears: hearing grossly normal bilaterally General nose exam: Normal external nose present Face and sinus: Yes normal facial exam Mouth: Normal oral and palatal mucosa present, oropharynx normal and moist mucous membranes Throat: Yes posterior oropharynx normal Eyes: General: appearance normal, both eyes and all related structures Eyelids: Yes eyelids normal Conjunctivae: conjunctivae normal Sclerae: sclerae normal Pupils: Equal, round and reactive pupils present EOM: EOMs intact bilaterally Neck: Neck: Yes normal visual inspection, Yes full ROM and Yes no lymphadenopathy Lymphatic: no lymphadenopathy noted Chest: Chest palpation & inspection: normal inspection of the chest Resp: Effort & Inspection: normal respiratory effort and able to speak in complete sentences Auscultation: clear to auscultation bilaterally, no crackles, no rales, no rhonchi and no wheezes Cardio: Rate: regular rate Rhythm: regular rhythm Heart sounds: S1 normal heart sound present and S2 normal heart sound present GI: Other: Abdomen is soft, with mild tenderness palpation the right flank, no right lower quadrant pain, no rebound or guarding. Normoactive bowel sounds present in all 4 quadrants. Inspection: Yes normal to inspection : Other: Mild right CVA tenderness noted Skin: General skin exam: no rashes or lesions noted Trauma: no lacerations or abrasions Wounds: no wounds Neuro: General: patient oriented x3 and moves all extremities Cranial nerves: Yes Equal, round and reactive pupils present Extrem: General: Yes normal to inspection Right upper extremity: normal to inspection Left upper extremity: normal to inspection Right lower extremity: normal to inspection Left lower extremity: normal to inspection Course Reevaluation(s) Reevaluation #1: Urine appears to be infected, will treat with cefuroxime 500 mg twice a day for the next [address] scan negative for hydronephrosis or kidney stone. Will treat as a urinary tract infection. Educated the importance of completing full course. Given return precautions. Patient understands and agrees with plan. Patient stable for discharge. Time: 12:42 Medications Administered Discontinued Medications Generic Name Dose Route Start Last Admin Trade Name Freq PRN Reason Stop Dose Admin Acetaminophen 975 mg 08/13/23 10:20 08/13/23 10:28 Acetaminophen 325 Mg Tablet PO 08/13/23 10:21 975 mg ONCE ONE Administration Cefuroxime Axetil 500 mg 08/13/23 12:39 08/13/23 12:52 Cefuroxime Axetil 500 Mg Tablet PO 08/13/23 12:40 500 mg ONCE ONE Administration Oxycodone HCl 5 mg 08/13/23 12:54 08/13/23 12:56 Oxycodone Hcl Immed Release 5 Mg Tablet PO 08/13/23 12:55 5 mg ONCE ONE Administration Medical Decision Making Medical Decision Making MDM Narrative: This is a 63-year-old female,with a history of hypertension, pulmonary embolism on Eliquis, diabetes, arthritis, GERD, anxiety, hypertension, presenting to the emergency department for evaluation of right-sided flank pain for the last week. On arrival, blood pressure within normal limits, all other vital signs within normal limits. Patient is nontoxic appearing. On examination, patient has mild right CVA tenderness as well as right flank pain. Urine with positive nitrites, no leuk esterases, with squamous cells with urine bacteria seen. Given right-sided flank pain, considering pyelonephritis versus nephrolithiasis, as well as obstructive uropathy. Plan: Labs, UA, Tylenol [address] CT abdomen and pelvis Differential Diagnosis Differential Diagnoses: The differential diagnosis associated with the presentation includes UTI, acute cystitis, pyelonephritis, nephrolithiasis, obstructive uropathy Admission/Observation Consideration of admission/observation: Escalation of care including admission/observation considered Patient would have been admitted to the hospital had her work up had any findings where hospital admission was appropriate and her clinical presentation warranted hospital admission. Lab Data [facility] Lab Attestation statement: I reviewed the patient's lab results. No leukocytosis, H&H around her baseline. Chemistry nondiagnostic. See [facility] for further details in regards to laboratory findings. 08/13/23 10:31 08/13/23 10:31 Labs: Lab Results 08/13/23 08/13/23 Range/Units 09:34 10:31 WBC 5.7 (4.8-10.8) X10*3/uL RBC 4.16 L (4.20-5.50) X10*6/uL Hgb 12.0 (12.0-16.0) g/dl Hct 36.1 L (37.0-47.0) % MCV 86.8 (80.0-98.0) fL MCH 28.8 (27.0-33.0) pg MCHC 33.2 (31.0-35.0) g/dl RDW 14.5 (11.0-16.0) % Plt Count 225 (160-400) X10*3/uL MPV 9.4 (9.4-12.3) fL Immature Gran % (Auto) 0.4 (0.0-0.4) % Neut % (Auto) 55.9 (45-73) % Lymph % (Auto) 34.9 (20-40) % [place] % (Auto) 7.3 (2-11) % Eos % (Auto) 1.1 (0-4) % Baso % (Auto) 0.4 (0-2) % Lymph # (Auto) 2.0 (1.2-4.9) X10*3/uL [place] # (Auto) 0.4 (0.1-1.2) X10*3/uL Eos # (Auto) 0.1 (0.0-0.4) X10*3/uL Baso # (Auto) 0.0 (0.0-0.2) X10*3/uL Abs Immat Gran (auto) 0.02 (0.00-0.03) X10*3/uL Absolute Neuts (auto) 3.2 (2.0-8.3) x10*3/uL Absolute Nucleated RBC 0.000 (0.0-0.012) X10*3/uL Nucleated RBC % (auto) 0.0 (0.0-0.2) /100WBC Sodium 140 (135-145) mmol/L Potassium 3.9 (3.3-5.1) mmol/L Chloride 109 H (96-108) mmol/L Carbon Dioxide 24 (22-29) mmol/L Anion Gap 11 L (12-20) BUN 12 (9-16) mg/dL Creatinine 0.78 (0.5-1.4) mg/dL Estim Creat Clear Calc 78.3 Estimated GFR > 60 Random Glucose 118 H (60-115) mg/dL Calcium 8.9 (8.4-10.2) mg/dL Total Bilirubin 0.7 (0.0-1.0) mg/dL Direct Bilirubin 0.2 (0.0-0.5) mg/dL AST 14 (5-31) U/L ALT 19 (0-31) U/L Alkaline Phosphatase 73 (39-117) U/L Total Protein 6.7 (6.5-8.0) g/dL Albumin 3.8 (3.5-5.0) g/dL Lipase 12 (8-78) U/L Urine Color Yellow Urine Appearance Hazy Urine pH 6.0 (5.0-9.0) Ur Specific [place] 1.020 (1.005-1.025) Urine Protein Negative (Neg-Trace) mg/dL Urine Glucose (UA) Negative (Negative) mg/dL Urine Ketones Negative (Negative) mg/dL Urine Blood Trace (Negative) Urine Nitrite Positive H (Negative) Ur Leukocyte Esterase Negative (Negative) Urine RBC 0-2 (0-2) /HPF Urine WBC 0-5 (0-5) /HPF Ur Squamous Epith Cells 3-5 (0-2) /HPF Urine Bacteria 4+ (None Seen) Hyaline Casts 0-2 (0-2) /LPF Radiology Impression Discussion of test interpretation with radiology: I have reviewed the radiologist's reading. Radiologist Impression: EXAMINATION: CT ABDOMEN AND PELVIS WITHOUT CONTRAST CLINICAL INFORMATION: Flank pain COMPARISON: CT abdomen 07/14/2022 TECHNIQUE: Multidetector volumetric imaging was performed from the superior aspect of the liver through the pubic symphysis. Sagittal and coronal reformatted images were obtained on the technologist's workstation. This CT examination was performed using dose optimization techniques as appropriate, variously including the following: *Automated exposure control *Adjustment of mA and/or kV according to patient size (this includes techniques or standardized protocols for targeted exams where dose is matched to indication/reason for exam; i.e. extremities or head) *Use of iterative reconstruction technique DLP: 903 mGy-cm FINDINGS: LUNG BASES: Bibasilar atelectasis. The previously seen tiny nodules are not clearly visualized. Mild coronary artery calcification. No pericardial or pleural effusion. LIVER, GALLBLADDER, AND BILIARY TREE: The liver is normal in size, shape, and attenuation. No focal hepatic lesion or biliary ductal dilatation is present. The gallbladder is unremarkable with no evidence of radiopaque gallstones, gallbladder wall thickening, or obvious pericholecystic inflammatory changes. PANCREAS: Unremarkable. No acute inflammatory changes. SPLEEN: Unremarkable. ADRENAL GLANDS: Unremarkable. KIDNEYS AND URETERS: Redemonstrated is a 2.4 cm simple cyst in the lower pole left kidney, for which no follow-up is indicated. Stable punctate calcification in the upper pole left kidney. No right renal calculi. 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 No ureteral calculi. No hydronephrosis. BLADDER: Unremarkable. GASTROINTESTINAL TRACT: Stomach is nondistended. No bowel obstruction. No bowel inflammatory changes identified. Stomach is partially distended. Normal appendix. No ascites. No free air. ABDOMINAL WALL: No significant hernia is appreciated. LYMPH NODES: No lymphadenopathy seen. VASCULAR: Scattered atherosclerotic vascular calcification. PELVIC VISCERA: Unremarkable. OSSEOUS STRUCTURES: No acute or suspicious osseous abnormality. CT/CT abdomen pelvis wo IV con IMPRESSION: 1. No evidence of hydronephrosis. No radiopaque calculi within the collecting system. 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 Additional findings as detailed above. 2. No acute intra-abdominal findings otherwise identified.. Fleischner guidelines were followed. Dictated By: Tino Blanchard MD Discharge Plan Discharge Clinical Impression: UTI (urinary tract infection) Patient Disposition: Home, Self-Care Instructions: Urinary Tract Infection in Women (ED) Additional Instructions: You presented to the emergency department due to back pain and abdominal pain. Your urine is infected which is likely the cause of your symptoms. We are treating you with a course of antibiotics. Please take full course even if you are feeling better. Your given your 1st dose of antibiotics in the department today. Your next dose is due for this evening. Your antibiotic needs to be taken twice a day for the next 7 days. Drink plenty of fluids get plenty of rest. We will call you if we need to change the antibiotic depending on what your urine culture shows. If any new or worsening symptoms occur including but not limited to worsening pain, fevers, chills, nausea, vomiting, please return for re-evaluation. Your CT scan also shows a simple cyst on your left kidney. This does not require any follow-up. You should inform your primary care physician about this report. Prescriptions: New cefuroxime axetil 500 mg tablet 500 mg PO BID 7 Days Qty: 13 0RF Rx Instructions: First dose was given in the department on 08/13/2023 No Action metformin 500 mg tablet 500 mg PO DAILY Qty: 90 1RF trazodone 100 mg tablet 100 mg PO BEDTIME Qty: 30 5RF atorvastatin 40 mg tablet 40 mg PO BEDTIME Qty: 90 1RF Eliquis 5 mg tablet 5 mg PO BID Qty: 60 1RF fluoxetine 20 mg capsule 40 mg PO DAILY Qty: 60 5RF buspirone 5 mg tablet 5 mg PO TID Qty: 90 5RF cetirizine 10 mg tablet 10 mg PO DAILY amlodipine 2.5 mg tablet 5 mg PO DAILY Qty: 60 5RF Protocol: Hold for SBP< HOLD for SBP < : 90 tolterodine 4 mg capsule,extended release 24hr 4 mg PO DAILY omeprazole 40 mg capsule,delayed release(DR/EC) 40 mg PO QPM PRN (Reason: Heartburn symptoms) Qty: 30 5RF
[2023-08-13] MEDS: Acetaminophen 325 MG TABLET 975 MG PO (10:28)
[2023-08-13 10:36] LABS: MANUAL DIFF FLAG NO
[2023-08-13 10:40] LABS: Basophils Percent Auto 0.4 % (0-2); Eosinophils Absolute Auto 0.1 X10*3/uL (0.0-0.4); Eosinophils Percent Auto 1.1 % (0-4); Hematocrit 36.1 % (37.0-47.0); Imm Gran Abs Auto 0.02 X10*3/uL (0.00-0.03); Imm Gran Pct Auto 0.4 % (0.0-0.4); Lymphocytes Percent Auto 34.9 % (20-40); Mean Corpuscular HGB Conc 33.2 g/dl (31.0-35.0); Mean Corpuscular Hemoglobin 28.8 pg (27.0-33.0); Mean Corpuscular Volume 86.8 fL (80.0-98.0); Mean Platelet Volume 9.4 fL (9.4-12.3); Monocytes Absolute Auto 0.4 X10*3/uL (0.1-1.2); Monocytes Percent Auto 7.3 % (2-11); Neutrophils Absolute Auto 3.2 x10*3/uL (2.0-8.3); Neutrophils Percent Auto 55.9 % (45-73); Platelet Count 225 X10*3/uL (160-400); Red Blood Count 4.16 X10*6/uL (4.20-5.50); Red Cell Distribution Width 14.5 % (11.0-16.0); White Blood Count 5.7 X10*3/uL (4.8-10.8)
[2023-08-13 10:57] LABS: Alanine Aminotransferase 19 U/L (0-31); Albumin Level 3.8 g/dL (3.5-5.0); Alkaline Phosphatase 73 U/L (39-117); Anion Gap 11 (12-20); Aspartate Amino Transferase 14 U/L (5-31); Bilirubin Direct 0.2 mg/dL (0.0-0.5); Bilirubin Total 0.7 mg/dL (0.0-1.0); Blood Urea Nitrogen 12 mg/dL (9-16); Calcium 8.9 mg/dL (8.4-10.2); Carbon Dioxide 24 mmol/L (22-29); Chloride 109 mmol/L (96-108); Creatinine Clr Calc Pharmacy 78.3; Estimated Glomerular Filt Rate > 60; Glucose Random 118 mg/dL (60-115); Lipase 12 U/L (8-78); Potassium 3.9 mmol/L (3.3-5.1); Sodium 140 mmol/L (135-145); Total Protein 6.7 g/dL (6.5-8.0)
[2023-08-13 11:03] VITALS: PULSE 62; RESP 16; TEMP 36.6; O2SAT 97
--- NOTE | 2023-08-13 11:24 | PC.NURSE ---
Assumed care of patient at 1100, patient is resting on stretcher reporting increasing pain now 9/10 with no improvement with Tylenol administration. Patient offers no other complaints at this time, respirations even and unlabored, skin pwd, alert and oriented x4. Awaiting CT scan results
[2023-08-13] MEDS: cefuroxime axetiL 500 MG TABLET PO (12:52)
[2023-08-13] MEDS: oxyCODONE HCl Immed Release 5 MG TABLET PO (12:56)
== END 2023-08-13 21:43 | disposition home or self-care (01) ==
PROVIDERS: Physician Assistant Medical; Emergency Provider Emergency Medicine; PCP Internal Medicine
DX: N39.0 Urinary tract infection, site not specified (principal); R10.9 Unspecified abdominal pain; I10 Essential (primary) hypertension; I26.99 Other pulmonary embolism without acute cor pulmonale; E11.9 Type 2 diabetes mellitus without complications; Z79.899 Other long term (current) drug therapy; Z79.01 Long term (current) use of anticoagulants
CPT/HCPCS: 36415; 74176; 80048; 80076; 81001; 83690; 85025; 87086; 87088; 87186; 99284

== ENCOUNTER 2023-08-15 10:44 | Outpatient (AMB) | payer MEDICARE, OTHER, SELFPAY ==
--- NOTE | 2023-08-15 10:47 | A.OFFVIS_ITS ---
Intake Vital Signs 08/15/23 10:49 Height 5 ft 2 in Weight 207 lb 3.752 oz BMI 37.9 BP 120/78 Blood Pressure Location Lt brachial Position Sitting Pulse 90 Intake Visit Reasons: 6 month f/u per DC Intake Note: 6 month follow-up c/o sob with walking Respiratory Medicine Physician Required: No Allergies Iodinated Contrast Media [IV CONTRAST] Adverse Reaction (Intermediate, Verified 08/13/23 08:37) Rash capsaicin Adverse Reaction (Verified 08/13/23 08:37) Rash perflutren [From Definity] Adverse Reaction (Verified 08/13/23 08:37) Back Pain Medication List - Last Reconciled 08/15/23 by Tawanda Reyes MD amlodipine 5 mg See Protocol PO DAILY apixaban (Eliquis) 5 mg PO BID atorvastatin 40 mg PO BEDTIME buspirone 5 mg PO TID cefuroxime axetil 500 mg PO BID 7 days cetirizine 10 mg PO DAILY fluoxetine 40 mg (2 x 20 mg) PO DAILY metformin 500 mg PO DAILY omeprazole 40 mg PO QPM PRN tolterodine ER 4 mg PO DAILY trazodone 100 mg PO BEDTIME HPI HPI Comments History of Present Illness Details Ya comes for follow-up. Currently remains on oral anticoagulation therapy with Eliquis for her pulmonary embolism. She complains of exertional shortness of breath which she says is chronic. No orthopnea, PND, leg edema. Her she complains of symptoms of palpitations which she says happen sporadically about 1 or every 2 weeks last for up to 3-5 minutes. If she is standing should get lightheaded. She has not had any syncopal episodes. No exertional chest pain. [facility] Medical History Prolapse of female pelvic organs Prepatellar bursitis Primary hypertension Generalized anxiety disorder Intermittent palpitations COPD (chronic obstructive pulmonary disease) History of COVID-19 COVID-19 vaccine series completed Depression, major, recurrent, in complete remission Herpes zoster Left shoulder tendinitis GERD (gastroesophageal reflux disease) Vitamin D deficiency Vitamin B12 deficiency Calcaneal spur of left foot Arthritis of first metatarsophalangeal (MTP) joint of left foot Deviated nasal septum Diabetes mellitus with microalbuminuria, without long-term current use of insulin History of pulmonary embolism History of thyroid cancer Essential hypertension Dyslipidemia Surgical History Hx of left breast biopsy History of partial thyroidectomy History of surgery History of cervical spinal surgery History of shoulder surgery History of colonoscopy History of tubal ligation H/O spinal fusion Family History Father Alcoholism Mother HTN (hypertension) Hyperlipidemia CVD (cardiovascular disease) Sister Hyperlipidemia Alcoholism Substance use disorder Brother No problems noted. Sister No problems noted. Sister No problems noted. Sister No problems noted. Daughter No problems noted. Daughter No problems noted. Social History Household Members: Spouse Household Members Other:: 2 Housing: House Do you presently have visiting nurse or other home services: No Alcohol intake: never Patient Tobacco Use Status: Former Tobacco user Quit Date: 20 yrs ago Years Smoked: 4 yrs e-Cigarette/Vaping Use: Never Used Second Hand Smoke Exposure: No service: No Current occupational status: disabled Cognitive needs: No Hearing needs: No Vision needs: Yes Review of Systems Const Denies chills, Denies fatigue, Denies fever(s), Denies frequent falls, Denies weakness, Denies weight gain and Denies weight loss ENT Denies dizziness Card Denies chest pain, Denies leg edema, Denies lightheadedness, Denies palpitations, Denies dyspnea, Denies dyspnea on exertion, Denies orthopnea and Denies other (loss of consciousness) Resp Denies cough, Denies dyspnea and Denies dyspnea on exertion GI Denies hematochezia and Denies change in stool character Musc Denies abnormal gait, Denies muscle weakness, Denies numbness, Denies radiating pain into limb and Denies tingling Neuro Denies abnormal gait, Denies dizziness, Denies frequent falls, Denies numbness, Denies tingling and Denies weakness Endo Denies fatigue and Denies palpitations Physical Exam Vital Signs: Last Vital Signs Pulse 90 08/15/23 10:49 BP 120/78 08/15/23 10:49 BMI result Body Mass Index 37.9 Const General: cooperative, healthy appearing, comfortable and no acute distress Orientation/consciousness: patient oriented x3 Neck Neck: Yes normal visual inspection and Yes no JVD Resp Effort & Inspection: normal respiratory effort Auscultation: clear to auscultation bilaterally, no crackles, no rales, no rhonchi and no wheezes Cardio Jugular venous distension: no JVD Rate: regular rate Rhythm: regular rhythm Heart sounds: S1 normal heart sound present, S2 normal heart sound present, no murmurs and no rubs GI Inspection: Yes normal to inspection Neuro General: patient oriented x3 Extrem General: Yes normal to inspection and No no pedal edema Psych Appearance: grossly normal Mental Status: mental status grossly normal Speech and movement: Normal speech and movement present Assessment & Plan Assessment & Plan (1) Intermittent palpitations: Code(s): R00.2 - Palpitations Plan: Patient with sporadic but intermittent symptoms of palpitation which is quite symptomatic. Question atrial fibrillation. Would suggest a 30 day event monitor to further assess for the same. Could be related to anxiety/panic attack or inappropriate sinus tachycardia SVT which may require alternative treatment approaches. Further treatment based on the findings of the event monitor. (2) Essential hypertension: Comment: currently under control without meds for a few yrs. Code(s): I10 - Essential (primary) hypertension Plan: Hypertension which is currently well optimized continue current therapy. Aggressive control of diabetes recommended goal hemoglobin A1c less than 7%. Goal LDL less than 70 mg/dL. Advised to monitor blood pressure at home maintain a log. Encouraged to increase activity level and participate in regular physical activity to improve her symptoms of shortness of breath. Will follow up in the clinic in 1 year's time, sooner p.r.n.. Thank you for allowing me to partake in her care Medications: Changed From amlodipine 5 mg See Protocol PO DAILY 60 tabs 5RF To amlodipine 5 mg See Protocol PO DAILY Coding Level of Care Code Est Pt Level 4 (05357) Diagnoses Intermittent palpitations R00.2 Essential hypertension I10
[2023-08-15 10:49] VITALS: BP 120/78; PULSE 90; BMI 37.9
== END 2023-08-15 11:03 | disposition home or self-care (01) ==
PROVIDERS: PCP Internal Medicine; Visit Provider Internal Medicine Cardiovascular Disease
DX: R00.2 Palpitations (principal); I10 Essential (primary) hypertension
CPT/HCPCS: 99214

== ENCOUNTER → 2023-08-15 10:44 | Outpatient (BNVA) | payer MEDICARE, OTHER, SELFPAY | PROVIDERS: PCP Internal Medicine; Visit Provider Internal Medicine Cardiovascular Disease | DX: R00.2 Palpitations (principal); I10 Essential (primary) hypertension | CPT/HCPCS: 99212 ==

== ENCOUNTER 2023-09-14 16:21 | Inpatient (IN) | payer MEDICARE, OTHER, SELFPAY ==
[2023-09-14 16:26] VITALS: BP 142/67; PULSE 60; O2SAT 98
[2023-09-14 16:38] VITALS: BP 145/76; PULSE 73; RESP 18; TEMP 36.8; O2SAT 98; BMI 38.7
--- NOTE | 2023-09-14 16:40 | ED.LOWEXIN ---
HPI - Extremity Injury (Lower) General Chief Complaint: Extremity Injury, Lower Stated Complaint: Fall w/ no head strike, on thinners Time Seen by Provider: 09/14/23 16:23 Source: patient and old records reviewed Mode of arrival: EMS Limitations: no limitations History of Present Illness HPI Narrative: 63 yo female with PMH of GERD, anxiety, prolonged QT, HLD, DM, HTN, PE on eliquis was walking downstairs and tripped landed on L ankle - no head strike was with daughter no LOC injury to R ankle and L tib fib. Given IV fentanyl with good relief. Mechanical relief. complaint: leg injury Onset (ago): minute(s) (just prior to arrival) Type of Injury: blunt Place: home Severity: moderate Relieving factors: immobilization Exacerbating factors: movement and palpation Context: fall Associated symptoms: snap/pop sensation and swelling Other symptoms: none Treatments prior to arrival: bandage and other (IV fentanyl) Related Data Home Medications Medication Instructions Recorded Confirmed cetirizine 10 mg tablet 10 mg PO DAILY 02/13/23 08/15/23 tolterodine 4 mg capsule,extended 4 mg PO DAILY 05/23/23 08/15/23 release 24 hr amlodipine 2.5 mg tablet 5 mg PO DAILY 08/15/23 08/15/23 Previous Rx's Medication Instructions Recorded metformin 500 mg tablet 500 mg PO DAILY #90 tabs 11/18/22 trazodone 100 mg tablet 100 mg PO BEDTIME #30 caps 04/12/23 atorvastatin 40 mg tablet 40 mg PO BEDTIME #90 tabs 05/19/23 omeprazole 40 mg capsule,delayed 40 mg PO QPM PRN Heartburn 05/23/23 release symptoms #30 caps buspirone 5 mg tablet 5 mg PO TID #90 tabs 07/10/23 fluoxetine 20 mg capsule 40 mg (2 x 20 mg) PO DAILY #60 caps 07/10/23 cefuroxime axetil 500 mg tablet 500 mg PO BID 7 days #13 tabs 08/13/23 apixaban 5 mg tablet (Eliquis) 5 mg PO BID #60 tabs 08/18/23 Allergies Allergy/AdvReac Type Severity Reaction Status Date / Time Iodinated Contrast Media AdvReac Intermediate Rash Verified 08/13/23 08:37 [IV CONTRAST] capsaicin AdvReac Rash Verified 08/13/23 08:37 perflutren [From Definity] AdvReac Back Pain Verified 08/13/23 08:37 Review of Systems Review of Systems: Constitutional : No Fever, No Chills ENT/Mouth : No Ear Pain, No Hoarseness, No sore throat Eyes: No Eye Pain, No Swelling, No Redness, No Foreign Body Cardiovascular : No Chest Pain, No SOB Respiratory : No Cough, No Dyspnea Gastrointestinal : No Nausea, No Vomiting, No Diarrhea, No abdominal Pain Genitourinary : No Dysuria, No Hematuria Musculoskeletal : positive joint pain, No Myalgias, pos Joint Swelling Skin : No Skin lacerations, No rash Neuro : No Weakness, No Numbness, No Loss of Consciousness, No Dizziness, No Headache Psych : No Anxiety/Panic, No Depression All other systems reviewed and are negative [facility] Past Medical History Source: old records reviewed Onset Date is defined in the Problem List Problems that require an onset date and time if occurred within 24 hrs of arrival to the ED Aortic Dissection and Rupture; Neurologic impairment; Cardiopulmonary Arrest; Endotracheal Intubation; Insertion or Replacement of Mechanical Circulatory Assist Device Medical History Prolapse of female pelvic organs Prepatellar bursitis Primary hypertension Generalized anxiety disorder Intermittent palpitations COPD (chronic obstructive pulmonary disease) History of COVID-19 COVID-19 vaccine series completed Depression, major, recurrent, in complete remission Herpes zoster Left shoulder tendinitis GERD (gastroesophageal reflux disease) Vitamin D deficiency Vitamin B12 deficiency Calcaneal spur of left foot Arthritis of first metatarsophalangeal (MTP) joint of left foot Deviated nasal septum Diabetes mellitus with microalbuminuria, without long-term current use of insulin History of pulmonary embolism History of thyroid cancer Essential hypertension Dyslipidemia Surgical History Hx of left breast biopsy History of partial thyroidectomy History of surgery History of cervical spinal surgery History of shoulder surgery History of colonoscopy History of tubal ligation H/O spinal fusion Family History Family History Father Alcoholism Mother HTN (hypertension) Hyperlipidemia CVD (cardiovascular disease) Sister Hyperlipidemia Alcoholism Substance use disorder Brother No problems noted. Sister No problems noted. Sister No problems noted. Sister No problems noted. Daughter No problems noted. Daughter No problems noted. Social History Social History Household Members: Spouse Household Members Other:: 2 Housing: House Do you presently have visiting nurse or other home services: No Alcohol intake: never Patient Tobacco Use Status: Former Tobacco user Quit Date: 20 yrs ago Years Smoked: 4 yrs e-Cigarette/Vaping Use: Never Used Second Hand Smoke Exposure: No Advance Directives: Yes Advance Directives on File: Yes Advance Directives Date on File: 11/08/22 service: No Current occupational status: disabled Cognitive needs: No Hearing needs: No Vision needs: Yes Physical Exam Vital Signs: Vital Signs: Last Vital Signs Temp 98.5 F 09/14/23 19:23 Pulse 84 09/14/23 19:23 Resp 13 09/14/23 19:23 BP 143/76 H 09/14/23 19:23 Pulse Ox 93 09/14/23 19:23 O2 Del Method Room Air 09/14/23 19:23 BMI result Body Mass Index 38.7 Appearance: Alert. Oriented X3. No acute distress. GCS 15 Eyes: Pupils equal, round and reactive to light. ENT: Pharynx normal. Atraumatic Neck: Normal inspection. Neck supple. CVS: Normal heart rate and rhythm. Pulses normal. Respiratory: No respiratory distress. Breath sounds normal. Abdomen: Soft and nontender. Skin: Skin warm and dry. Normal skin color. Normal skin turgor. Extremities: R ankle mild ttp, L tib distal there is ttp and deformity no signs of skin opening - distal SILT intact and 2+ DP pulses with BCR in toes Neuro: Oriented X 3. No motor deficit. No sensory deficit. Course Course Course Narrative: no pain over L knee no prox fib ttp Medications Administered Discontinued Medications Generic Name Dose Route Start Last Admin Trade Name Freq PRN Reason Stop Dose Admin Hydromorphone HCl 0.5 mg 09/14/23 16:35 09/14/23 16:47 Hydromorphone Hcl 0.5 Mg/0.5 Ml Syringe IVPUSH 09/14/23 16:36 0.5 mg ONCE ONE Administration Protocol Medical Decision Making Medical Decision Making MDM Narrative: 63 yo female with PMH of GERD, anxiety, prolonged QT, HLD, DM, HTN, PE on eliquis here s/p mechanical fall witnessed injury to R ankle and L tib fib - closed. She is distal NV intact at this time she did not hit head it was witnessed no headache doubt ICH will obtain xrays of R ankle, L ankle tib fib denies pain in knee or hip - distal SILT and distal DP pulse 2+ - IV dilaudid for pain. Differential Diagnosis Differential Diagnoses: The differential diagnosis associated with the presentation includes fracture Admission/Observation Consideration of admission/observation: Escalation of care including admission/observation considered admit to medicine Dr. Ridley aware plan for surgery Monday Consult Healthcare Provider Management of the patient was discussed with: Hospitalist (will admit) and Administrative Services Director (surgery likely monday ) Lab Data MDM Lab Attestation statement: I reviewed the patient's lab results. 09/14/23 18:11 09/14/23 18:11 Labs: Lab Results 09/14/23 09/14/23 Range/Units 18:11 19:45 WBC 7.6 (4.8-10.8) X10*3/uL RBC 4.23 (4.20-5.50) X10*6/uL Hgb 12.4 (12.0-16.0) g/dl Hct 37.5 (37.0-47.0) % MCV 88.7 (80.0-98.0) fL MCH 29.3 (27.0-33.0) pg MCHC 33.1 (31.0-35.0) g/dl RDW 14.4 (11.0-16.0) % Plt Count 268 (160-400) X10*3/uL MPV 10.2 (9.4-12.3) fL Immature Gran % (Auto) 0.3 (0.0-0.4) % Neut % (Auto) 71.8 (45-73) % Lymph % (Auto) 20.4 (20-40) % [place] % (Auto) 6.4 (2-11) % Eos % (Auto) 0.7 (0-4) % Baso % (Auto) 0.4 (0-2) % Lymph # (Auto) 1.5 (1.2-4.9) X10*3/uL [place] # (Auto) 0.5 (0.1-1.2) X10*3/uL Eos # (Auto) 0.1 (0.0-0.4) X10*3/uL Baso # (Auto) 0.0 (0.0-0.2) X10*3/uL Abs Immat Gran (auto) 0.02 (0.00-0.03) X10*3/uL Absolute Neuts (auto) 5.4 (2.0-8.3) x10*3/uL Absolute Nucleated RBC 0.000 (0.0-0.012) X10*3/uL Nucleated RBC % (auto) 0.0 (0.0-0.2) /100WBC PT 13.6 H (11.1-13.3) SEC INR 1.1 (0.9-1.1) Sodium 142 (135-145) mmol/L Potassium 3.6 (3.3-5.1) mmol/L Chloride 107 (96-108) mmol/L Carbon Dioxide 25 (22-29) mmol/L Anion Gap 14 (12-20) BUN 8 L (9-16) mg/dL Creatinine 0.80 (0.5-1.4) mg/dL Estim Creat Clear Calc 78.8 Estimated GFR > 60 Random Glucose 123 H (60-115) mg/dL Calcium 9.6 D (8.4-10.2) mg/dL Total Bilirubin 0.6 (0.0-1.0) mg/dL Direct Bilirubin 0.2 (0.0-0.5) mg/dL AST 18 (5-31) U/L ALT 19 (0-31) U/L Alkaline Phosphatase 79 (39-117) U/L Total Protein 7.2 (6.5-8.0) g/dL Albumin 4.1 (3.5-5.0) g/dL COVID-19 ([facility]ATH[facility]) Negative (Negative) COVID-19 Clin Com See Note Independent Interpretation I performed an independent interpretation of an: EKG and Plain X-Ray (fractures) Interpretation: Rate: 71 Rhythm: NSR [place]: normal Normal P waves. Normal VINNY. Normal QRS complex. ST T wave : no SAVITA, inverted t waves in V1, V2 qTC: 462 prior studies: no acute ischemia The study has been interpreted contemporaneously by me. . Radiology Impression Discussion of test interpretation with radiology: I have reviewed the radiologist's reading. Independent Historian Clinical information obtained from an independent historian. History obtained from or confirmed by: EMS External Record Review External record reviewed: Inpatient record Procedures Orthopedic Splinting/Casting Injury #1: Side: left Upper Extremity Immobilizer: posterior splint and sugar tong splint Lower Extremity Injury Location: lower leg and ankle Additional Comments: NV intact Critical Care Time Critical Care Time Critical Care Time: Yes Total Critical Care Time: 45 Attestation: pain improved with IV morphine. repeat assessments, NV intact I attest to this time spent taking care of the patient Discharge Plan Discharge Clinical Impression: Fracture of distal end of left tibia Qualifiers: Encounter type: initial encounter Fracture type: closed Fracture morphology: unspecified fracture morphology Qualified Code(s): S82.302A - Unspecified fracture of lower end of left tibia, initial encounter for closed fracture Fracture of distal end of fibula Qualifiers: Encounter type: initial encounter Fracture type: closed Fracture morphology: unspecified fracture morphology Laterality: left Qualified Code(s): S82.832A - Other fracture of upper and lower end of left fibula, initial encounter for closed fracture Avulsion fracture of ankle Qualifiers: Encounter type: initial encounter Fracture type: closed Laterality: right Qualified Code(s): S82.891A - Other fracture of right lower leg, initial encounter for closed fracture Patient Disposition: Admitted As Inpatient
[2023-09-14 19:23] VITALS: BP 143/76; PULSE 84; RESP 13; TEMP 36.9; O2SAT 93
--- NOTE | 2023-09-14 20:32 | PM.IMHP ---
History of Present Illness Date of Service: 09/14/23 Chief Complaint: Fall This is a 63-year-old female with pertinent history of essential hypertension, DVT/PE on Eliquis, mixed hyperlipidemia, mood disorder, zmz-bikqicl-chjkbqsca diabetes mellitus, urinary incontinence, gastroesophageal reflux disease who presents to the emergency department after a fall and for evaluation of left leg pain. Patient states that as she was walking downstairs, she tripped and landed on her left ankle. Did not lose consciousness prior to the fall. No rhythmic jerking movement of extremities. No head strike. No fever, chills, chest discomfort, palpitations, abdominal pain, changes in urinary or bowel habits. In the emergency department, imaging with spiral community fracture involving the distal left tibia and fibula. Orthopedic surgery was consulted who requested admission. Review of Systems Constitutional: Constitutional: Reports no additional constitutional complaints Cardiovascular: Cardiovascular: Reports no additional cardiovascular complaints Respiratory: Respiratory: Reports no additional respiratory complaints Gastrointestinal: Gastrointestinal: Reports no additional gastrointestinal complaints Genitourinary: Genitourinary: Reports no additional female genitourinary complaints Musculoskeletal: Musculoskeletal: Reports arthralgias and Reports joint swelling [facility] Medical History Prolapse of female pelvic organs Prepatellar bursitis Primary hypertension Generalized anxiety disorder Intermittent palpitations COPD (chronic obstructive pulmonary disease) History of COVID-19 COVID-19 vaccine series completed Depression, major, recurrent, in complete remission Herpes zoster Left shoulder tendinitis GERD (gastroesophageal reflux disease) Vitamin D deficiency Vitamin B12 deficiency Calcaneal spur of left foot Arthritis of first metatarsophalangeal (MTP) joint of left foot Deviated nasal septum Diabetes mellitus with microalbuminuria, without long-term current use of insulin History of pulmonary embolism History of thyroid cancer Essential hypertension Dyslipidemia Family History Father Alcoholism Mother HTN (hypertension) Hyperlipidemia CVD (cardiovascular disease) Sister Hyperlipidemia Alcoholism Substance use disorder Brother No problems noted. Sister No problems noted. Sister No problems noted. Sister No problems noted. Daughter No problems noted. Daughter No problems noted. Surgical History Hx of left breast biopsy History of partial thyroidectomy History of surgery History of cervical spinal surgery History of shoulder surgery History of colonoscopy History of tubal ligation H/O spinal fusion Social History Household Members: Spouse Household Members Other:: 2 Housing: House Do you presently have visiting nurse or other home services: No Alcohol intake: never Patient Tobacco Use Status: Former Tobacco user Quit Date: 20 yrs ago Years Smoked: 4 yrs e-Cigarette/Vaping Use: Never Used Second Hand Smoke Exposure: No Advance Directives: Yes Advance Directives on File: Yes Advance Directives Date on File: 11/08/22 service: No Current occupational status: disabled Cognitive needs: No Hearing needs: No Vision needs: Yes Meds Allergies Allergy/AdvReac Type Severity Reaction Status Date / Time Iodinated Contrast Media AdvReac Intermediate Rash Verified 08/13/23 08:37 [IV CONTRAST] capsaicin AdvReac Rash Verified 08/13/23 08:37 perflutren [From Definity] AdvReac Back Pain Verified 08/13/23 08:37 Active Medications: Current Medications Acetaminophen (Acetaminophen 325 Mg Tablet) 650 mg PO Q6H PRN PRN Reason: Pain, Mild (Pain Scale 1-3) Melatonin (Melatonin 3 Mg Tablet) 6 mg PO BEDTIME PRN PRN Reason: Insomnia Ondansetron HCl (Ondansetron Hcl 4 Mg/2 Ml Vial) 4 mg IVPUSH Q8H PRN PRN Reason: Nausea and Vomiting Sodium Chloride (0.9 % Sodium Chloride Flush 3 Ml Syringe) 3 ml IVFLUSH [facility] Home Medications Medication Instructions Recorded Confirmed Last Taken Type cetirizine 10 mg tablet 10 mg PO DAILY 02/13/23 08/15/23 Unknown History tolterodine 4 mg capsule,extended 4 mg PO DAILY 05/23/23 08/15/23 Unknown History release 24 hr amlodipine 2.5 mg tablet 5 mg PO DAILY 08/15/23 08/15/23 Unknown History Physical Exam Vital Signs and Narrative: Vital Signs: Last Vital Signs Temp 98.5 F 09/14/23 19:23 Pulse 84 09/14/23 19:23 Resp 13 09/14/23 19:23 BP 143/76 H 09/14/23 19:23 Pulse Ox 93 09/14/23 19:23 O2 Del Method Room Air 09/14/23 19:23 BMI result Body Mass Index 38.7 Middle-aged female lying in bed in no distress Neck supple, no JVD Regular rate and rhythm, S1-S2 heard Regular breath sounds bilaterally, no wheezing or crackles appreciated Abdomen soft nontender, no guarding, no rigidity Patient is awake, alert and oriented to self, place, time and person ; no focal motor deficit Musculoskeletal: Lower left leg with tenderness to palpation, pain with movement Psych: Normal mood No pedal edema Results Labs 09/14/23 18:11 09/14/23 18:11 Labs: Laboratory Results - last 24 hr 09/14/23 09/14/23 18:11 19:45 MCV 88.7 MCH 29.3 MCHC 33.1 RDW 14.4 Plt Count 268 MPV 10.2 Immature Gran % (Auto) 0.3 Neut % (Auto) 71.8 Lymph % (Auto) 20.4 [place] % (Auto) 6.4 Eos % (Auto) 0.7 Baso % (Auto) 0.4 Lymph # (Auto) 1.5 [place] # (Auto) 0.5 Eos # (Auto) 0.1 Baso # (Auto) 0.0 Abs Immat Gran (auto) 0.02 Absolute Neuts (auto) 5.4 Absolute Nucleated RBC 0.000 Nucleated RBC % (auto) 0.0 PT 13.6 H INR 1.1 Anion Gap 14 Estim Creat Clear Calc 78.8 Estimated GFR > 60 Random Glucose 123 H Calcium 9.6 D Total Bilirubin 0.6 Direct Bilirubin 0.2 AST 18 ALT 19 Alkaline Phosphatase 79 Total Protein 7.2 Albumin 4.1 COVID-19 ([facility]) Negative COVID-19 Clin Com See Note Imaging Radiologist's Impressions: Impressions Ankle X-Ray 09/14/23 18:27 IMPRESSION: 1. Spiral comminuted fractures involving the distal left tibia and fibula as described above. 2. Question of tiny avulsion fracture at the tip of the lateral malleolus on the right. Please correlate with pain on palpation in this region as the finding may represent an old remote injury. Ankle X-Ray 09/14/23 18:27 IMPRESSION: 1. Spiral comminuted fractures involving the distal left tibia and fibula as described above. 2. Question of tiny avulsion fracture at the tip of the lateral malleolus on the right. Please correlate with pain on palpation in this region as the finding may represent an old remote injury. Chest X-Ray 09/14/23 18:27 IMPRESSION: No acute cardiopulmonary disease. Tibia/Fibula X-Ray 09/14/23 18:27 IMPRESSION: 1. Spiral comminuted fractures involving the distal left tibia and fibula as described above. 2. Question of tiny avulsion fracture at the tip of the lateral malleolus on the right. Please correlate with pain on palpation in this region as the finding may represent an old remote injury. Assessment and Plan (1) Fracture of distal end of fibula: Qualifiers: Encounter type: initial encounter Fracture morphology: unspecified fracture morphology Fracture type: closed Laterality: left Qualified Code(s): S82.832A - Other fracture of upper and lower end of left fibula, initial encounter for closed fracture Status: Acute (2) Fracture of distal end of left tibia: Qualifiers: Encounter type: initial encounter Fracture morphology: unspecified fracture morphology Fracture type: closed Qualified Code(s): S82.302A - Unspecified fracture of lower end of left tibia, initial encounter for closed fracture Status: Acute Plan This is a 63-year-old female with pertinent history of essential hypertension, DVT/PE on Eliquis, mixed hyperlipidemia, mood disorder, ltm-aptxeah-pjjihimuo diabetes mellitus, urinary incontinence, gastroesophageal reflux disease who presents to the emergency department after a fall and for evaluation of left leg pain. #. Comminuted fracture of distal left tibia and fibula, due to mechanical fall: Will admit patient and initiate IV opiates p.r.n. for symptomatic relief. Orthopedic surgery consulted from the ER, appreciate assistance. Patient scheduled for surgery on 09/16. Will hold Eliquis. #. Preoperative risk, RCRI score 0 #. History of DVT/PE: Holding Eliquis as above #. Essential hypertension: Continue home antihypertensives #. Hur-arocvey-kxdgjxdmq diabetes mellitus: Initiating Accu-Cheks with sliding scale insulin before meals and at bedtime #. Mixed hyperlipidemia: On statin #. Mood disorder: Continue home mood stabilizers #. Gastroesophageal reflux disease: On PPI Med rec pending DVT prophylaxis: Mechanical Full code Admit as inpatient and will require two night minimum hospital stay for treatment of distal fibula/tibia fracture with surgical intervention (as above), which is not possible in a lesser acute setting. Specialist consult pending Quality Stroke Does the patient have a stroke diagnosis?: No VTE Prior VTE?: No VTE Risk Level:: Medical - moderate - high VTE Device Contraindication: N/A - Device Ordered VTE Drug Contraindication: Treatment Not Indicated
--- NOTE | 2023-09-14 21:04 | MHC.EDTECH ---
Asked Dr. Pierre if consult was still needed. Dr. Pierre explained the consult was taken care of 2104.
--- NOTE | 2023-09-14 21:09 | PHA.MEDREC ---
Pharmacy Consult ? Medication Reconciliation Pharmacy has completed the medication reconciliation. Patient confirmed medicaitons. Rachael Stoner, AnitraD
[2023-09-15] VITALS (7 sets, daily range): BP systolic 113–163; BP diastolic 68–84; PULSE 87–97; RESP 12–18; TEMP 36.7–37.1; O2SAT 90–98
--- NOTE | 2023-09-15 07:45 | PM.HPOR ---
History of Present Illness History of Present Illness Date of Service: 09/15/23 Chief complaint: left ankle pain Narrative: Ya Cameron is a 63 year old female with a PMH significant for essential hypertension, DVT/PE on Eliquis, mixed hyperlipidemia, mood disorder, orp-duwrxit-pdrsbyufi diabetes mellitus, urinary incontinence, gastroesophageal reflux disease who presents to the emergency department after sustaining a fall down one stair and landing on her left ankle. She felt immediate pain and was unable to ambulate. X-rays obtained in he ED reveal a left tib/fib fx. The patient was admitted to the medicine service with orthopedic consult for further evaluation and treatment. Patient lives with . Does not use and assistive devices at baseline. Review of Systems Review of Systems: Yes all other systems are reviewed and are negative [facility] Past Medical History Medical History Prolapse of female pelvic organs Prepatellar bursitis Primary hypertension Generalized anxiety disorder Intermittent palpitations COPD (chronic obstructive pulmonary disease) History of COVID-19 COVID-19 vaccine series completed Depression, major, recurrent, in complete remission Herpes zoster Left shoulder tendinitis GERD (gastroesophageal reflux disease) Vitamin D deficiency Vitamin B12 deficiency Calcaneal spur of left foot Arthritis of first metatarsophalangeal (MTP) joint of left foot Deviated nasal septum Diabetes mellitus with microalbuminuria, without long-term current use of insulin History of pulmonary embolism History of thyroid cancer Essential hypertension Dyslipidemia Family History Family History Father Alcoholism Mother HTN (hypertension) Hyperlipidemia CVD (cardiovascular disease) Sister Hyperlipidemia Alcoholism Substance use disorder Brother No problems noted. Sister No problems noted. Sister No problems noted. Sister No problems noted. Daughter No problems noted. Daughter No problems noted. Surgical History Surgical History Hx of left breast biopsy History of partial thyroidectomy History of surgery History of cervical spinal surgery History of shoulder surgery History of colonoscopy History of tubal ligation H/O spinal fusion Social History Social History Household Members: Spouse Household Members Other:: 2 Housing: House Do you presently have visiting nurse or other home services: No Alcohol intake: never Patient Tobacco Use Status: Former Tobacco user Quit Date: 20 yrs ago Years Smoked: 4 yrs Smoked in Last 30 Days: No e-Cigarette/Vaping Use: Never Used Second Hand Smoke Exposure: No Use of substances other than those prescribed or required for medical reasons: No Advance Directives: Yes Advance Directives on File: Yes Advance Directives Date on File: 11/08/22 Patient : No service: No Current occupational status: disabled Cognitive needs: No Hearing needs: No Vision needs: Yes Meds Allergies Allergy/AdvReac Type Severity Reaction Status Date / Time Iodinated Contrast Media AdvReac Intermediate Rash Verified 08/13/23 08:37 [IV CONTRAST] capsaicin AdvReac Rash Verified 08/13/23 08:37 perflutren [From Definity] AdvReac Back Pain Verified 08/13/23 08:37 Active Medications: Current Medications Acetaminophen (Acetaminophen 325 Mg Tablet) 650 mg PO Q6H PRN PRN Reason: Pain, Mild (Pain Scale 1-3) Amlodipine Besylate (Amlodipine Besylate 5 Mg Tablet) 5 mg PO DAILY [facility]; Protocol Atorvastatin Calcium (Atorvastatin Calcium 40 Mg Tablet) 40 mg PO BEDTIME [facility] Buspirone HCl (Buspirone Hcl 5 Mg Tablet) 5 mg PO TID [facility] Dextrose (Dextrose 50 % 25 Gm/50 Ml Syringe) 25 gm IVPUSH Q15M PRN; Protocol PRN Reason: per Hypoglycemia Standing Ord. Fluoxetine HCl (Fluoxetine Hcl 20 Mg Capsule) 40 mg PO DAILY [facility] Glucose (Glucose Gel 15 Gm Gel..Gram.) 15 gm PO Q15M PRN; Protocol PRN Reason: per Hypoglycemia Standing Ord. Insulin Human Lispro (Insulin Lispro 100 Unit/Ml 3 Ml Vial) 0 unit SUBCUT QIDACHS [facility]; Protocol Last Admin: 09/15/23 07:03 Dose: Not Given Loratadine (Loratadine 10 Mg Tablet) 10 mg PO DAILY [facility] Melatonin (Melatonin 3 Mg Tablet) 6 mg PO BEDTIME PRN PRN Reason: Insomnia Morphine Sulfate (Morphine Sulfate 2 Mg/Ml Cartridge) 2 mg IVPUSH Q4H PRN; Protocol PRN Reason: Pain, Severe (Pain Scale 7-10) Last Admin: 09/15/23 01:49 Dose: 2 mg Omeprazole (Omeprazole 40 Mg Capsule.Dr) 40 mg PO BEDTIME [facility] Ondansetron HCl (Ondansetron Hcl 4 Mg/2 Ml Vial) 4 mg IVPUSH Q8H PRN PRN Reason: Nausea and Vomiting Sodium Chloride (0.9 % Sodium Chloride Flush 3 Ml Syringe) 3 ml IVFLUSH QSHIFT [facility] Last Admin: 09/15/23 07:14 Dose: Not Given Tolterodine Tartrate (Tolterodine Tartrate La 4 Mg Cap.Er.24h) 4 mg PO DAILY [facility] Trazodone HCl (Trazodone Hcl 100 Mg Tablet) 100 mg PO BEDTIME [facility] Home Medications Medication Instructions Recorded Confirmed Last Taken Type cetirizine 10 mg tablet 10 mg PO DAILY 02/13/23 09/14/23 09/14/23 History tolterodine 4 mg capsule,extended 4 mg PO DAILY 05/23/23 09/14/23 09/14/23 History release 24 hr amlodipine 2.5 mg tablet 5 mg PO DAILY 08/15/23 09/14/23 09/14/23 History omeprazole 40 mg capsule,delayed 40 mg PO QPM Heartburn symptoms 09/14/23 09/14/23 09/13/23 History release Physical Exam Vital Signs: Vital Signs: Last Vital Signs Temp 98.5 F 09/14/23 19:23 Pulse 95 09/15/23 06:55 Resp 14 09/15/23 06:55 BP 155/80 H 09/15/23 06:55 Pulse Ox 93 09/15/23 06:55 O2 Del Method Room Air 09/15/23 06:55 O2 Flow Rate 2 09/15/23 03:11 BMI result Body Mass Index 38.7 Const: General: cooperative, healthy appearing, comfortable, no acute distress, well developed, alert and awake Orientation/consciousness: patient oriented x3 HEENT: Head: Yes normal to inspection, Yes normocephalic and Yes atraumatic Eyes: General: appearance normal, both eyes and all related structures Neck: Neck: Yes normal visual inspection and Yes no lymphadenopathy Resp: Effort & Inspection: normal respiratory effort and able to speak in complete sentences Cardio: Rate: regular rate Peripheral pulses: Peripheral pulses 2+ throughout GI: Inspection: Yes normal to inspection Palpation (GI): Soft to palpation Skin: General skin exam: no rashes or lesions noted Neuro: General: patient oriented x3 Extrem: Other: Left lower extremity is in a posterior short leg splint. Able to move digits. Sensation reportedly intact. Capillary refill is brisk. Right ankle lateral mal mild-moderate edema. Tenderness to palpation lateral mal. Able to dorsi/plantar flex. Limited eversion and inversion due to pain. Sensation intact. Pedal pulse intact. Psych: Mental Status: mental status grossly normal Results Labs 09/15/23 06:42 09/14/23 18:11 Labs: Abnormal lab results 09/14/23 09/15/23 09/15/23 Range/Units 18:11 06:42 06:58 RBC 4.00 L (4.20-5.50) X10*6/uL Hgb 11.5 L (12.0-16.0) g/dl Hct 35.3 L (37.0-47.0) % PT 13.6 H (11.1-13.3) SEC BUN 8 L (9-16) mg/dL POC Glucose 135 H (60-115) mg/dL Random Glucose 123 H (60-115) mg/dL H & H 09/14/23 09/15/23 Range/Units 18:11 06:42 Hgb 12.4 11.5 L (12.0-16.0) g/dl Hct 37.5 35.3 L (37.0-47.0) % Coagulation 09/14/23 Range/Units 18:11 INR 1.1 (0.9-1.1) All other labs normal. Assessment and Plan (1) Avulsion fracture of ankle: Qualifiers: Encounter type: initial encounter Fracture type: closed Laterality: right Qualified Code(s): S82.891A - Other fracture of right lower leg, initial encounter for closed fracture Status: Acute (2) Fracture of distal end of fibula: Qualifiers: Encounter type: initial encounter Fracture morphology: unspecified fracture morphology Fracture type: closed Laterality: left Qualified Code(s): S82.832A - Other fracture of upper and lower end of left fibula, initial encounter for closed fracture Status: Acute (3) Fracture of distal end of left tibia: Qualifiers: Encounter type: initial encounter Fracture morphology: unspecified fracture morphology Fracture type: closed Qualified Code(s): S82.302A - Unspecified fracture of lower end of left tibia, initial encounter for closed fracture Status: Acute I discussed the case with Dr. Rodriguez and explained the extent of the injury to the patient and options available which include surgical intervention. I explained the procedure in detail along with the length of recovery and rehab course. I explained the risk, benefits and alternatives. Risk including, but not limited to infection, blood clots, bleeding, non union or malunion and nerve/tissue damage to surrounding areas. I answered all their questions and with their understanding they have consented to move forward with Operative Fixation of the left ankle. The patient will be T&S, med clearance obtained and NPO after midnight. Hold eliquis for upcoming surgical intervention. Recommend right ankle tall walking boot (4) History of pulmonary embolism: Status: Acute Quality Stroke Does the patient have a stroke diagnosis?: No VTE Prior VTE?: No VTE Risk Level:: Medical - moderate - high VTE Device Contraindication: N/A - Device Ordered VTE Drug Contraindication: Treatment Not Indicated Procedures Date of Service Date of Service: 09/15/23
--- NOTE | 2023-09-15 07:48 | HO.PM.IMPN ---
Subjective Subjective Date of Service: 09/15/23 Interval History: f/u on mechanical fall, left distal tibia/fibula fracture pain is controlled. Physical Exam Vital Signs: Vital Signs: Last Vital Signs Temp 98.5 F 09/14/23 19:23 Pulse 95 09/15/23 06:55 Resp 14 09/15/23 06:55 BP 155/80 H 09/15/23 06:55 Pulse Ox 93 09/15/23 06:55 O2 Del Method Room Air 09/15/23 06:55 O2 Flow Rate 2 09/15/23 03:11 BMI result Body Mass Index 38.7 Const: Other: General: AO X 3, no acute distress Resp: CTA bilateral CVS: S1,S2,RRR GI: +BS, NT, no distention Skin: No rash Neuro: motor grossly intact Psych: appropriate affect Objective Data Active Medications Acetaminophen (Acetaminophen 325 Mg Tablet) 650 mg PO Q6H PRN PRN Reason: Pain, Mild (Pain Scale 1-3) Amlodipine Besylate (Amlodipine Besylate 5 Mg Tablet) 5 mg PO DAILY [facility]; Protocol Atorvastatin Calcium (Atorvastatin Calcium 40 Mg Tablet) 40 mg PO BEDTIME [facility] Buspirone HCl (Buspirone Hcl 5 Mg Tablet) 5 mg PO TID [facility] Dextrose (Dextrose 50 % 25 Gm/50 Ml Syringe) 25 gm IVPUSH Q15M PRN; Protocol PRN Reason: per Hypoglycemia Standing Ord. Fluoxetine HCl (Fluoxetine Hcl 20 Mg Capsule) 40 mg PO DAILY [facility] Glucose (Glucose Gel 15 Gm Gel..Gram.) 15 gm PO Q15M PRN; Protocol PRN Reason: per Hypoglycemia Standing Ord. Insulin Human Lispro (Insulin Lispro 100 Unit/Ml 3 Ml Vial) 0 unit SUBCUT QIDACHS [facility]; Protocol Last Admin: 09/15/23 07:03 Dose: Not Given Documented By: REINA Non-Admin Reason: No Insulin Coverage Loratadine (Loratadine 10 Mg Tablet) 10 mg PO DAILY [facility] Melatonin (Melatonin 3 Mg Tablet) 6 mg PO BEDTIME PRN PRN Reason: Insomnia Morphine Sulfate (Morphine Sulfate 2 Mg/Ml Cartridge) 2 mg IVPUSH Q4H PRN; Protocol PRN Reason: Pain, Severe (Pain Scale 7-10) Last Admin: 09/15/23 07:47 Dose: 2 mg Documented By: REINA Omeprazole (Omeprazole 40 Mg Capsule.Dr) 40 mg PO BEDTIME [facility] Ondansetron HCl (Ondansetron Hcl 4 Mg/2 Ml Vial) 4 mg IVPUSH Q8H PRN PRN Reason: Nausea and Vomiting Sodium Chloride (0.9 % Sodium Chloride Flush 3 Ml Syringe) 3 ml IVFLUSH QSHIFT [facility] Last Admin: 09/15/23 07:14 Dose: Not Given Documented By: PROVENC Non-Admin Reason: Patient Asleep Tolterodine Tartrate (Tolterodine Tartrate La 4 Mg Cap.Er.24h) 4 mg PO DAILY [facility] Trazodone HCl (Trazodone Hcl 100 Mg Tablet) 100 mg PO BEDTIME [facility] Labs 09/15/23 06:42 09/15/23 06:42 Labs: Laboratory Results - last 24 hr 09/14/23 09/14/23 09/14/23 18:11 19:45 21:18 MCV 88.7 MCH 29.3 MCHC 33.1 RDW 14.4 Plt Count 268 MPV 10.2 Immature Gran % (Auto) 0.3 Neut % (Auto) 71.8 Lymph % (Auto) 20.4 [place] % (Auto) 6.4 Eos % (Auto) 0.7 Baso % (Auto) 0.4 Lymph # (Auto) 1.5 [place] # (Auto) 0.5 Eos # (Auto) 0.1 Baso # (Auto) 0.0 Abs Immat Gran (auto) 0.02 Absolute Neuts (auto) 5.4 Absolute Nucleated RBC 0.000 Nucleated RBC % (auto) 0.0 PT 13.6 H INR 1.1 Anion Gap 14 Estim Creat Clear Calc 78.8 Estimated GFR > 60 POC Glucose 115 Random Glucose 123 H Calcium 9.6 D Total Bilirubin 0.6 Direct Bilirubin 0.2 AST 18 ALT 19 Alkaline Phosphatase 79 Total Protein 7.2 Albumin 4.1 COVID-19 ([facility]) Negative COVID-19 Clin Com See Note Blood Type Antibody Screen 09/15/23 09/15/23 09/15/23 01:06 06:42 06:58 MCV 88.3 MCH 28.8 MCHC 32.6 RDW 14.4 Plt Count 261 MPV 10.3 Immature Gran % (Auto) 0.4 Neut % (Auto) 64.3 Lymph % (Auto) 26.3 [place] % (Auto) 8.0 Eos % (Auto) 0.8 Baso % (Auto) 0.2 Lymph # (Auto) 2.2 [place] # (Auto) 0.7 Eos # (Auto) 0.1 Baso # (Auto) 0.0 Abs Immat Gran (auto) 0.03 Absolute Neuts (auto) 5.4 Absolute Nucleated RBC 0.000 Nucleated RBC % (auto) 0.0 PT INR Anion Gap Estim Creat Clear Calc Estimated GFR POC Glucose 135 H Random Glucose Calcium Total Bilirubin Direct Bilirubin AST ALT Alkaline Phosphatase Total Protein Albumin COVID-19 ([facility]) COVID-19 Clin Com Blood Type A Positive Antibody Screen NEGATIVE Assessment and Plan (1) Fracture of distal end of fibula: Status: Acute (2) Avulsion fracture of ankle: Status: Acute Plan This is a 63-year-old female with pertinent history of essential hypertension, DVT/PE on Eliquis, mixed hyperlipidemia, mood disorder, yhn-irtamar-xvlrcgaoq diabetes mellitus, urinary incontinence, gastroesophageal reflux disease who presents to the emergency department after a fall and for evaluation of left leg pain. Comminuted fracture of distal left tibia and fibula, due to mechanical fall -for surgical repair 09/16, hold eliquis -Preoperative risk, RCRI score 0, no further testing needed History of DVT/PE: Holding Eliquis as above, and restart promptly after Essential hypertension: Continue Norvasc Mzs-lxraaxn-utmrljgaj diabetes mellitus -SSI, hold metformin, check poc, diabetic diet Mixed hyperlipidemia: On statin Mood disorder: Continue home mood stabilizers Gastroesophageal reflux disease: On PPI med rec done DVT prophylaxis: Mechanical Full code discussed with ortho Need for inpt: surgical repair for acute tibia/fibular fracture Quality Stroke Does the patient have a stroke diagnosis?: No VTE Prior VTE?: No VTE Risk Level:: Medical - moderate - high VTE Device Contraindication: N/A - Device Ordered VTE Drug Contraindication: Treatment Not Indicated
--- NOTE | 2023-09-15 08:15 | PC.NURSE ---
this RN was informed by ortho patient is to remain NPO for the remainder of the day for possible procedure later in the day. patient did eat breakfast, ortho and attending aware. patient respirations equal and unlabored, utilized prn morphine per MAR for 10/10 pain in the left leg. patient CMS intact in the left foot. patient currently shows no signs of distress, able to make needs known, alert and oriented x 3
--- NOTE | 2023-09-15 10:43 | PC.NURSE ---
patient having breakthrough pain utilized prn tylenol medicated per luis
--- NOTE | 2023-09-15 11:36 | MHC.CM.PN ---
PATIENT LIVES WITH HCP/SPOUSE (ON FILE AND VERIFIED) SHE IS INDEPENDENT AT BASELINE. NO DME, PRIVATE PAY, OR [facility] SERVICES SHE IS AWARE OF POTENTIAL FOR DC NEEDS AND AGREEABLE TO [facility] REFERRAL, NOW PLACED. IF SHE WERE TO NEED REHAB, SHE WOULD LIKE A REFERRAL TO [facility], NOW PLACED. SHE DOES NOT ANTICIPATE NEEDING THAT LEVEL OF CARE AT THIS TIME; HOWEVER. PLAN IS FOR SURGICAL INTERVENTION TODAY OR Monday09/16/23.
[2023-09-16] VITALS (12 sets, daily range): BP systolic 110–186; BP diastolic 50–84; PULSE 69–108; RESP 15–20; TEMP 36–37.1; O2SAT 91–97
--- NOTE | 2023-09-16 09:43 | HO.PM.IMPN ---
Subjective Subjective Date of Service: 09/16/23 Interval History: f/u on mechanical fall, left distal tibia/fibula fracture pain is controlled, awaiting surgery today Physical Exam Vital Signs: Vital Signs: Last Vital Signs Temp 96.9 F 09/16/23 09:32 Pulse 89 09/16/23 09:32 Resp 20 09/16/23 09:32 BP 119/59 L 09/16/23 09:32 Pulse Ox 94 09/16/23 09:32 O2 Del Method Room Air 09/16/23 09:32 O2 Flow Rate 2 09/15/23 03:11 BMI result Body Mass Index 38.7 Const: Other: General: AO X 3, no acute distress Resp: CTA bilateral CVS: S1,S2,RRR GI: +BS, NT, no distention Skin: No rash Neuro: motor grossly intact Psych: appropriate affect Objective Data Active Medications Acetaminophen (Acetaminophen 325 Mg Tablet) 650 mg PO Q6H PRN PRN Reason: Pain, Mild (Pain Scale 1-3) Last Admin: 09/15/23 10:42 Dose: 650 mg Documented By: REINA Amlodipine Besylate (Amlodipine Besylate 5 Mg Tablet) 5 mg PO DAILY [facility]; Protocol Last Admin: 09/16/23 09:20 Dose: Not Given Documented By: CATRACHITO Non-Admin Reason: Off Unit: Surgery Atorvastatin Calcium (Atorvastatin Calcium 40 Mg Tablet) 40 mg PO BEDTIME [facility] Last Admin: 09/15/23 20:13 Dose: 40 mg Documented By: SHON Buspirone HCl (Buspirone Hcl 5 Mg Tablet) 5 mg PO TID [facility] Last Admin: 09/16/23 09:21 Dose: Not Given Documented By: CATRACHITO Non-Admin Reason: Off Unit: Surgery Dextrose (Dextrose 50 % 25 Gm/50 Ml Syringe) 25 gm IVPUSH Q15M PRN; Protocol PRN Reason: per Hypoglycemia Standing Ord. Fluoxetine HCl (Fluoxetine Hcl 20 Mg Capsule) 40 mg PO DAILY [facility] Last Admin: 09/16/23 09:21 Dose: Not Given Documented By: CATRACHITO Non-Admin Reason: Off Unit: Surgery Glucose (Glucose Gel 15 Gm Gel..Gram.) 15 gm PO Q15M PRN; Protocol PRN Reason: per Hypoglycemia Standing Ord. Cefazolin Sodium/Dextrose (Ancef) 2 gm in 50 mls @ 100 mls/hr IV PREOP ONE Stop: 09/16/23 09:44 Insulin Human Lispro (Insulin Lispro 100 Unit/Ml 3 Ml Vial) 0 unit SUBCUT QIDACHS [facility]; Protocol Last Admin: 09/16/23 07:49 Dose: Not Given Documented By: CATRACHITO Non-Admin Reason: No Insulin Coverage Loratadine (Loratadine 10 Mg Tablet) 10 mg PO DAILY [facility] Last Admin: 09/16/23 09:21 Dose: Not Given Documented By: CATRACHITO Non-Admin Reason: Off Unit: Surgery Melatonin (Melatonin 3 Mg Tablet) 6 mg PO BEDTIME PRN PRN Reason: Insomnia Morphine Sulfate (Morphine Sulfate 2 Mg/Ml Cartridge) 2 mg IVPUSH Q4H PRN; Protocol PRN Reason: Pain, Severe (Pain Scale 7-10) Last Admin: 09/16/23 05:55 Dose: 2 mg Documented By: SHON Omeprazole (Omeprazole 40 Mg Capsule.Dr) 40 mg PO BEDTIME [facility] Last Admin: 09/15/23 20:13 Dose: 40 mg Documented By: SHON Ondansetron HCl (Ondansetron Hcl 4 Mg/2 Ml Vial) 4 mg IVPUSH Q8H PRN PRN Reason: Nausea and Vomiting Sodium Chloride (0.9 % Sodium Chloride Flush 3 Ml Syringe) 3 ml IVFLUSH QSHIFT [facility] Last Admin: 09/16/23 08:58 Dose: 3 ml Documented By: CATRACHITO Tolterodine Tartrate (Tolterodine Tartrate La 4 Mg Cap.Er.24h) 4 mg PO DAILY [facility] Last Admin: 09/16/23 09:21 Dose: Not Given Documented By: CATRACHITO Non-Admin Reason: Off Unit: Surgery Trazodone HCl (Trazodone Hcl 100 Mg Tablet) 100 mg PO BEDTIME [facility] Last Admin: 09/15/23 20:13 Dose: 100 mg Documented By: SHON Labs 09/15/23 06:42 09/15/23 06:42 Labs: Laboratory Results - last 24 hr 09/15/23 09/15/23 09/15/23 11:51 16:43 20:02 POC Glucose 115 106 151 H 09/16/23 07:26 POC Glucose 129 H Assessment and Plan (1) Fracture of distal end of fibula: Status: Acute (2) Avulsion fracture of ankle: Status: Acute Plan This is a 63-year-old female with pertinent history of essential hypertension, DVT/PE on Eliquis, mixed hyperlipidemia, mood disorder, fld-eiuemne-ntpmwzbbp diabetes mellitus, urinary incontinence, gastroesophageal reflux disease who presents to the emergency department after a fall and for evaluation of left leg pain. Comminuted fracture of distal left tibia and fibula, due to mechanical fall -for surgical repair tody/, holding eliquis -Preoperative risk, RCRI score 0, no further testing needed History of DVT/PE: resume Eliquis as above, and restart promptly after surgery Essential hypertension: Continue Norvasc Ujw-yretqxt-svddgasww diabetes mellitus -SSI, hold metformin, check poc, diabetic diet Mixed hyperlipidemia: On statin Mood disorder: Continue home mood stabilizers Gastroesophageal reflux disease: On PPI med rec done DVT prophylaxis: Mechanical Full code discussed with ortho Need for inpt: surgical repair for acute tibia/fibular fracture Quality Stroke Does the patient have a stroke diagnosis?: No VTE Prior VTE?: No VTE Risk Level:: Medical - moderate - high VTE Device Contraindication: N/A - Device Ordered VTE Drug Contraindication: Treatment Not Indicated
--- NOTE | 2023-09-16 15:15 | PM.OP ---
Brief Operative Note Date of Service: 09/16/23 Pre-op diagnosis: Left tibia and fibular fracture Post-op diagnosis: same Procedure: ORIF tibia ORIF fibula Implants: [place] Surgeon: Danilo Rodriguez MD Anesthesia: GETA Was an System Support Analyst used for this Procedure?: Yes System Support Analyst: Desire Hernandez Estimated blood loss (mL): 10 Tourniquet time (min): 95 IV fluids (mL): 1,100 Pathology: none sent Condition: stable Disposition: PACU
[2023-09-17 04:00] VITALS: BP 146/76; PULSE 87; RESP 18; TEMP 36; O2SAT 94
[2023-09-17 07:55] VITALS: BP 120/60; PULSE 74; RESP 17; TEMP 36.4; O2SAT 96
[2023-09-17 08:00] LABS: Anion Gap 10 (12-20); Blood Urea Nitrogen 10 mg/dL (9-16); Calcium 8.9 mg/dL (8.4-10.2); Carbon Dioxide 26 mmol/L (22-29); Chloride 103 mmol/L (96-108); Creatinine Clr Calc Pharmacy 85.2; Estimated Glomerular Filt Rate > 60; Glucose Fasting 166 mg/dL (60-99); Potassium 3.7 mmol/L (3.3-5.1); Sodium 135 mmol/L (135-145)
--- NOTE | 2023-09-17 08:21 | PM.EVENT ---
Event Note Date of Service: 09/17/23 Event Note: Spoke with Nurse managing the patient this morning, June Navarro RN, after medication adjustment patient's pain has been better controlled. No overnight events. Vitals are stable. She is afebrile. H&H is 10.4/32.2. No overnight events. Patient does not have any additional complaints when discussed with the nurse. Lovenox to begin 24hours post op (today) Resume Eliquis at 48hours post op NWB LLE Right ankle tall walking boot for ambulation - WBAT P.T./O.T.- Left ankle tibia and fibula ORIF: -LLE: NWB -RLE: WBAT in boot Keep splint clean, dry, and intact Strict elevation above heart level on three pillows Dispo/planning: Pain management, P.T./O.T. evaluation, Rehab placement Time Spent With Patient Time: Total time managing care of this patient today ____ minutes.
--- NOTE | 2023-09-17 10:13 | HO.PM.IMPN ---
Subjective Subjective Date of Service: 09/17/23 Interval History: Pain is better controlled, after surgery Physical Exam Vital Signs: Vital Signs: Last Vital Signs Temp 97.6 F 09/17/23 07:55 Pulse 74 09/17/23 07:55 Resp 17 09/17/23 07:55 BP 120/60 09/17/23 07:55 Pulse Ox 96 09/17/23 07:55 O2 Del Method Nasal Cannula 09/17/23 07:55 O2 Flow Rate 2.0 09/17/23 07:55 BMI result Body Mass Index 38.7 Const: Other: General: AO X 3, no acute distress Resp: CTA bilateral CVS: S1,S2,RRR GI: +BS, NT, no distention Skin: No rash, dressing intact Neuro: motor grossly intact Psych: appropriate affect Objective Data Active Medications Amlodipine Besylate (Amlodipine Besylate 5 Mg Tablet) 5 mg PO DAILY [facility]; Protocol Last Admin: 09/17/23 08:13 Dose: 5 mg Documented By: CATRACHITO Apixaban (Apixaban 5 Mg Tablet) 5 mg PO BID [facility] Atorvastatin Calcium (Atorvastatin Calcium 40 Mg Tablet) 40 mg PO BEDTIME [facility] Last Admin: 09/16/23 20:02 Dose: 40 mg Documented By: SHON Buspirone HCl (Buspirone Hcl 5 Mg Tablet) 5 mg PO TID [facility] Last Admin: 09/17/23 08:13 Dose: 5 mg Documented By: CATRACHITO Celecoxib (Celecoxib 200 Mg Capsule) 200 mg PO BID [facility] Last Admin: 09/17/23 08:13 Dose: 200 mg Documented By: CATRACHITO Dextrose (Dextrose 50 % 25 Gm/50 Ml Syringe) 25 gm IVPUSH Q15M PRN; Protocol PRN Reason: per Hypoglycemia Standing Ord. Docusate Sodium (Docusate Sodium 100 Mg Capsule) 100 mg PO BID [facility] Last Admin: 09/17/23 08:12 Dose: 100 mg Documented By: CATRACHITO Enoxaparin Sodium (Enoxaparin Sodium 40 Mg/0.4 Ml Syringe) 40 mg SUBCUT Q24H [facility] Stop: 09/18/23 14:00 Fentanyl (Fentanyl Citrate/Pf 100 Mcg/2 Ml Vial) 50 mcg IVPUSH Q5M PRN; Protocol PRN Reason: Pain, Severe (Pain Scale 7-10) Fluoxetine HCl (Fluoxetine Hcl 20 Mg Capsule) 40 mg PO DAILY [facility] Last Admin: 09/17/23 08:12 Dose: 40 mg Documented By: CATRACHITO Glucose (Glucose Gel 15 Gm Gel..Gram.) 15 gm PO Q15M PRN; Protocol PRN Reason: per Hypoglycemia Standing Ord. Lactated Ringer's (Lr) 1,000 mls @ 100 mls/hr IVCONT .Q10H [facility] Last Admin: 09/17/23 01:37 Dose: 100 mls/hr Documented By: SHON Acetaminophen (Ofirmev) 1,000 mg in 100 mls @ 400 mls/hr IV Q6H [facility] Stop: 09/17/23 12:59 Last Infusion: 09/17/23 07:00 Dose: Infused Documented By: CATRACHITO Insulin Human Lispro (Insulin Lispro 100 Unit/Ml 3 Ml Vial) 0 unit SUBCUT QIDACHS [facility]; Protocol Last Admin: 09/17/23 08:12 Dose: 2 unit Documented By: CATRACHITO Loratadine (Loratadine 10 Mg Tablet) 10 mg PO DAILY [facility] Last Admin: 09/17/23 08:13 Dose: 10 mg Documented By: CATRACHITO Melatonin (Melatonin 3 Mg Tablet) 6 mg PO BEDTIME PRN PRN Reason: Insomnia Morphine Sulfate (Morphine Sulfate 2 Mg/Ml Cartridge) 2 mg IVPUSH Q4H PRN; Protocol PRN Reason: Pain, Severe (Pain Scale 7-10) Last Admin: 09/17/23 08:36 Dose: 2 mg Documented By: CATRACHITO Omeprazole (Omeprazole 40 Mg Capsule.) 40 mg PO BEDTIME [facility] Last Admin: 09/16/23 20:02 Dose: 40 mg Documented By: SHON Ondansetron HCl (Ondansetron Hcl 4 Mg/2 Ml Vial) 4 mg IVPUSH Q8H PRN PRN Reason: Nausea and Vomiting Ondansetron HCl (Ondansetron Hcl 4 Mg/2 Ml Vial) 4 mg IVPUSH ONCE PRN PRN Reason: Nausea and Vomiting Oxycodone HCl (Oxycodone Hcl Immed Release 5 Mg Tablet) 10 mg PO Q4H PRN PRN Reason: Pain, Moderate(Pain Scale 4-6) Last Admin: 01/07/24 06:29 Dose: 10 mg Documented By: SHON Sodium Chloride (0.9 % Sodium Chloride Flush 3 Ml Syringe) 3 ml IVFLUSH QSHIFT [facility] Last Admin: 09/17/23 07:12 Dose: Not Given Documented By: CATRACHITO Non-Admin Reason: IV Running Tolterodine Tartrate (Tolterodine Tartrate La 4 Mg Cap.Er.24h) 4 mg PO DAILY [facility] Last Admin: 09/17/23 08:13 Dose: 4 mg Documented By: CATRACHITO Trazodone HCl (Trazodone Hcl 100 Mg Tablet) 100 mg PO BEDTIME [facility] Last Admin: 09/16/23 20:02 Dose: 100 mg Documented By: SHON Labs 09/17/23 07:01 09/17/23 07:01 Labs: Laboratory Results - last 24 hr 09/16/23 09/16/23 09/17/23 16:10 19:59 07:01 MCV 88.0 MCH 28.4 MCHC 32.3 RDW 14.2 Plt Count 224 MPV 10.1 Immature Gran % (Auto) 0.5 H Neut % (Auto) 77.2 H Lymph % (Auto) 14.1 L [place] % (Auto) 8.1 Eos % (Auto) 0.0 Baso % (Auto) 0.1 Lymph # (Auto) 1.5 [place] # (Auto) 0.8 Eos # (Auto) 0.0 Baso # (Auto) 0.0 Abs Immat Gran (auto) 0.05 H Absolute Neuts (auto) 8.0 Absolute Nucleated RBC 0.000 Nucleated RBC % (auto) 0.0 Anion Gap 10 L Estim Creat Clear Calc 85.2 Estimated GFR > 60 POC Glucose 180 H 212 H Fasting Glucose 166 H Calcium 8.9 09/17/23 07:59 MCV MCH MCHC RDW Plt Count MPV Immature Gran % (Auto) Neut % (Auto) Lymph % (Auto) [place] % (Auto) Eos % (Auto) Baso % (Auto) Lymph # (Auto) [place] # (Auto) Eos # (Auto) Baso # (Auto) Abs Immat Gran (auto) Absolute Neuts (auto) Absolute Nucleated RBC Nucleated RBC % (auto) Anion Gap Estim Creat Clear Calc Estimated GFR POC Glucose 155 H Fasting Glucose Calcium Assessment and Plan (1) Fracture of distal end of fibula: Status: Acute (2) Avulsion fracture of ankle: Status: Acute Plan This is a 63-year-old female with pertinent history of essential hypertension, DVT/PE on Eliquis, mixed hyperlipidemia, mood disorder, rpv-ybnuyau-wifuyhbbj diabetes mellitus, urinary incontinence, gastroesophageal reflux disease who presents to the emergency department after a fall and for evaluation of left leg pain. Comminuted fracture of distal left tibia and fibula, due to mechanical fall -leftTibi/Fibula ORIF, 09/16 -pain control -PT eval tomorroe History of DVT/PE: restart Eliquis tomorrow per ortho Essential hypertension: Continue Norvasc Vnr-xziznjn-esusuampz diabetes mellitus -SSI, resume metformin, check poc, diabetic diet Mixed hyperlipidemia: On statin Mood disorder: Continue home mood stabilizers Gastroesophageal reflux disease: On PPI DVT prophylaxis: Lovenox, eliquis starting tomorrow Full code discussed with ortho Need for inpt: Post op care for fibula/tibia repair PT eval tomorrow, out of bed to chair Quality Stroke Does the patient have a stroke diagnosis?: No VTE Prior VTE?: No VTE Risk Level:: Medical - moderate - high VTE Device Contraindication: N/A - Device Ordered VTE Drug Contraindication: Treatment Not Indicated
[2023-09-17 15:23] VITALS: BP 107/56; PULSE 74; RESP 18; TEMP 36.1; O2SAT 94
[2023-09-17 20:00] VITALS: BP 127/64; PULSE 71; RESP 18; TEMP 37; O2SAT 90
--- NOTE | 2023-09-17 21:58 | PC.NURSE ---
Pt scoring at a high fall risk, all interventions in place, Pt requesting all 4 bedrails be put up, advised Pt this is considered a restraint, Pt requesting they all remain up and in place. Pt resting comfortably with call cherry in reach, respirations even and unlabored, reports pain relief.
[2023-09-18 03:06] VITALS: BP 138/91; PULSE 86; RESP 17; TEMP 37.1; O2SAT 90
[2023-09-18 07:13] VITALS: BP 148/71; PULSE 76; RESP 18; TEMP 37.1; O2SAT 91
[2023-09-18 07:25] LABS: Anion Gap 11 (12-20); Blood Urea Nitrogen 14 mg/dL (9-16); Calcium 9.1 mg/dL (8.4-10.2); Carbon Dioxide 27 mmol/L (22-29); Chloride 104 mmol/L (96-108); Creatinine Clr Calc Pharmacy 78.8; Estimated Glomerular Filt Rate > 60; Glucose Fasting 98 mg/dL (60-99); Potassium 3.6 mmol/L (3.3-5.1); Sodium 138 mmol/L (135-145)
--- NOTE | 2023-09-18 07:42 | PM.PNORT ---
Subjective Subjective Date of Service: 09/18/23 Interval history: POD2 s/p Patient is resting in bed comfortably No overnight events Pain is managed No additional complaints Physical Exam Vital Signs: Vital Signs: Last Vital Signs Temp 98.8 F 09/18/23 07:13 Pulse 76 09/18/23 07:13 Resp 18 09/18/23 07:13 BP 148/71 H 09/18/23 07:13 Pulse Ox 91 L 09/18/23 07:13 O2 Del Method Room Air 09/18/23 07:13 O2 Flow Rate 2.0 09/17/23 07:55 BMI result Body Mass Index 38.7 Const: General: cooperative, healthy appearing and no acute distress Resp: Effort & Inspection: normal respiratory effort and able to speak in complete sentences Cardio: Rate: regular rate Peripheral pulses: Peripheral pulses 2+ throughout GI: Palpation (GI): Soft to palpation Skin: Lesions: no lesions Rashes: no rashes Extrem: Other: LLE splint is c/d/i. Able to move all digits. Capillary refill is brisk. Sensation intact. Procedures Date of Service Date of Service: 09/18/23 Progress Note: A&P Assessment and plan (1) Fracture of distal end of fibula: Status: Acute Assessment and Plan: Continue pain mgmnt Resume eliquis 48 hrs post op, D/C Lovenox at that time for dvt ppx begin PT/OT for LLE tib/fib ORIF, right ankle sprain. -NWB LLE -WBAT RLE Dispo planning-Pending PT eval, pain mgmnt, rehab likely (2) Fracture of distal end of left tibia: Status: Acute (3) Avulsion fracture of ankle: Status: Acute (4) Diabetes mellitus with microalbuminuria, without long-term current use of insulin: Status: Acute Time Spent With Patient Time: Total time managing care of this patient today ____ minutes. Quality Stroke Does the patient have a stroke diagnosis?: No VTE Prior VTE?: No VTE Risk Level:: Medical - moderate - high VTE Device Contraindication: N/A - Device Ordered VTE Drug Contraindication: Treatment Not Indicated
[2023-09-18 08:54] VITALS: BP 148/71; PULSE 76; O2SAT 91
--- NOTE | 2023-09-18 09:20 | HO.PM.IMPN ---
Subjective Subjective Date of Service: 09/18/23 Interval History: Pain is controlled, not yet moving Physical Exam Vital Signs: Vital Signs: Last Vital Signs Temp 98.8 F 09/18/23 07:13 Pulse 76 09/18/23 07:13 Resp 18 09/18/23 07:13 BP 148/71 H 09/18/23 07:13 Pulse Ox 91 L 09/18/23 07:13 O2 Del Method Room Air 09/18/23 07:13 O2 Flow Rate 2.0 09/17/23 07:55 BMI result Body Mass Index 38.7 Const: Other: General: AO X 3, no acute distress Resp: CTA bilateral CVS: S1,S2,RRR GI: +BS, NT, no distention Skin: No rash surgery site splint in place Neuro: motor grossly intact Psych: appropriate affect Objective Data Active Medications Amlodipine Besylate (Amlodipine Besylate 5 Mg Tablet) 5 mg PO DAILY [facility]; Protocol Last Admin: 09/18/23 08:22 Dose: 5 mg Documented By: MARISOL Apixaban (Apixaban 5 Mg Tablet) 5 mg PO BID [facility] Atorvastatin Calcium (Atorvastatin Calcium 40 Mg Tablet) 40 mg PO BEDTIME [facility] Last Admin: 09/17/23 19:59 Dose: 40 mg Documented By: CHESTER Buspirone HCl (Buspirone Hcl 5 Mg Tablet) 5 mg PO TID [facility] Last Admin: 09/18/23 08:21 Dose: 5 mg Documented By: MARISOL Celecoxib (Celecoxib 200 Mg Capsule) 200 mg PO BID [facility] Last Admin: 09/18/23 08:21 Dose: 200 mg Documented By: MARISOL Dextrose (Dextrose 50 % 25 Gm/50 Ml Syringe) 25 gm IVPUSH Q15M PRN; Protocol PRN Reason: per Hypoglycemia Standing Ord. Docusate Sodium (Docusate Sodium 100 Mg Capsule) 100 mg PO BID [facility] Last Admin: 09/18/23 08:22 Dose: 100 mg Documented By: MARISOL Enoxaparin Sodium (Enoxaparin Sodium 40 Mg/0.4 Ml Syringe) 40 mg SUBCUT Q24H [facility] Stop: 09/18/23 14:00 Last Admin: 09/17/23 12:08 Dose: 40 mg Documented By: CATRACHITO Fentanyl (Fentanyl Citrate/Pf 100 Mcg/2 Ml Vial) 50 mcg IVPUSH Q5M PRN; Protocol PRN Reason: Pain, Severe (Pain Scale 7-10) Fluoxetine HCl (Fluoxetine Hcl 20 Mg Capsule) 40 mg PO DAILY [facility] Last Admin: 09/18/23 08:21 Dose: 40 mg Documented By: MARISOL Glucose (Glucose Gel 15 Gm Gel..Gram.) 15 gm PO Q15M PRN; Protocol PRN Reason: per Hypoglycemia Standing Ord. Insulin Human Lispro (Insulin Lispro 100 Unit/Ml 3 Ml Vial) 0 unit SUBCUT QIDACHS [facility]; Protocol Last Admin: 09/18/23 08:16 Dose: Not Given Documented By: MARISOL Non-Admin Reason: No Insulin Coverage Loratadine (Loratadine 10 Mg Tablet) 10 mg PO DAILY [facility] Last Admin: 09/18/23 08:21 Dose: 10 mg Documented By: MARISOL Melatonin (Melatonin 3 Mg Tablet) 6 mg PO BEDTIME PRN PRN Reason: Insomnia Metformin HCl (Metformin Hcl 500 Mg Tablet) 500 mg PO DAILY [facility] Last Admin: 09/18/23 08:21 Dose: 500 mg Documented By: MARISOL Morphine Sulfate (Morphine Sulfate 2 Mg/Ml Cartridge) 2 mg IVPUSH Q4H PRN; Protocol PRN Reason: Pain, Severe (Pain Scale 7-10) Last Admin: 09/18/23 08:22 Dose: 2 mg Documented By: MARISOL Omeprazole (Omeprazole 40 Mg Capsule.Dr) 40 mg PO BEDTIME [facility] Last Admin: 09/17/23 19:59 Dose: 40 mg Documented By: CHESTER Ondansetron HCl (Ondansetron Hcl 4 Mg/2 Ml Vial) 4 mg IVPUSH Q8H PRN PRN Reason: Nausea and Vomiting Ondansetron HCl (Ondansetron Hcl 4 Mg/2 Ml Vial) 4 mg IVPUSH ONCE PRN PRN Reason: Nausea and Vomiting Oxycodone HCl (Oxycodone Hcl Immed Release 5 Mg Tablet) 10 mg PO Q4H PRN PRN Reason: Pain, Moderate(Pain Scale 4-6) Last Admin: 09/18/23 07:23 Dose: 10 mg Documented By: SABIHA Sodium Chloride (0.9 % Sodium Chloride Flush 3 Ml Syringe) [facility] Last Admin: 09/18/23 08:21 Dose: 3 ml Documented By: MARISOL Tolterodine Tartrate (Tolterodine Tartrate La 4 Mg Cap.Er.24h) 4 mg PO DAILY [facility] Last Admin: 09/18/23 08:21 Dose: 4 mg Documented By: MARISOL Trazodone HCl (Trazodone Hcl 100 Mg Tablet) 100 mg PO BEDTIME [facility] Last Admin: 09/17/23 19:59 Dose: 100 mg Documented By: CHESTER Labs 09/18/23 05:31 09/18/23 05:31 Labs: Laboratory Results - last 24 hr 09/17/23 09/17/23 09/17/23 11:37 17:15 19:59 MCV MCH MCHC RDW Plt Count MPV Immature Gran % (Auto) Neut % (Auto) Lymph % (Auto) [place] % (Auto) Eos % (Auto) Baso % (Auto) Lymph # (Auto) [place] # (Auto) Eos # (Auto) Baso # (Auto) Abs Immat Gran (auto) Absolute Neuts (auto) Absolute Nucleated RBC Nucleated RBC % (auto) Anion Gap Estim Creat Clear Calc Estimated GFR POC Glucose 181 H 138 H 149 H Fasting Glucose Calcium 09/18/23 09/18/23 05:31 07:16 MCV 89.0 MCH 29.3 MCHC 32.9 RDW 14.3 Plt Count 218 MPV 10.4 Immature Gran % (Auto) 0.4 Neut % (Auto) 56.0 Lymph % (Auto) 33.9 [place] % (Auto) 7.8 Eos % (Auto) 1.7 Baso % (Auto) 0.2 Lymph # (Auto) 2.8 [place] # (Auto) 0.7 Eos # (Auto) 0.1 Baso # (Auto) 0.0 Abs Immat Gran (auto) 0.03 Absolute Neuts (auto) 4.7 Absolute Nucleated RBC 0.000 Nucleated RBC % (auto) 0.0 Anion Gap 11 L Estim Creat Clear Calc 78.8 Estimated GFR > 60 POC Glucose 103 Fasting Glucose 98 Calcium 9.1 Assessment and Plan (1) Fracture of distal end of fibula: Status: Acute (2) Avulsion fracture of ankle: Status: Acute Plan This is a 63-year-old female with pertinent history of essential hypertension, DVT/PE on Eliquis, mixed hyperlipidemia, mood disorder, dcx-vrrhkts-hjrgpbpul diabetes mellitus, urinary incontinence, gastroesophageal reflux disease who presents to the emergency department after a fall and for evaluation of left leg pain. Comminuted fracture of distal left tibia and fibula, due to mechanical fall -leftTibi/Fibula ORIF, 09/16 -pain control -PT eval today, she will likely need reha History of DVT/PE: restart Eliquis today per ortho Essential hypertension: Continue Norvasc Dpc-pchjsgl-eyjaqtjvp diabetes mellitus -SSI, resume metformin, check poc, diabetic diet Mixed hyperlipidemia: On statin Mood disorder: Continue home mood stabilizers Gastroesophageal reflux disease: On PPI DVT prophylaxis: Lovenox, eliquis starting tomorrow Full code discussed with ortho Need for inpt: Post op care for fibula/tibia repair PT eval , out of bed Quality Stroke Does the patient have a stroke diagnosis?: No VTE Prior VTE?: No VTE Risk Level:: Medical - moderate - high VTE Device Contraindication: N/A - Device Ordered VTE Drug Contraindication: Treatment Not Indicated
--- NOTE | 2023-09-18 09:47 | HO.POSTANES ---
Post Anesthesia Evaluation Post Anesthesia Evaluation Date of Service: 09/18/23 Vital Signs: Vital Signs Temp Pulse Resp BP Pulse Ox O2 Del Method 09/18/23 08:54 76 148/71 H 91 L 09/18/23 07:13 98.8 F 76 18 148/71 H 91 L Room Air 09/18/23 03:06 98.7 F 86 17 138/91 H 90 L Room Air Anesthesia: Spinal Mental Status: Awake Pain Control: Satisfactory Nausea/Vomiting: None Hydration: Adequate Anesthesia-Related Issues: No Anes. Related Issues
[2023-09-18 11:18] VITALS: BP 148/71; PULSE 76; O2SAT 91
--- NOTE | 2023-09-18 12:19 | PM.DS ---
DS: Providers Provider Date of Service: 10/19/23 Date of admission: 09/14/23 20:23 Primary care physician: Flakita Calero MD Consults: 09/14/23 20:31 Consult to Orthopedics Routine Consulting Provider: [facility] [place] [facility] Reason for consultation: tibia and fibula fracture DS: Diagnosis Discharge Diagnosis (1) Fracture of distal end of fibula: Status: Acute (2) Avulsion fracture of ankle: Status: Acute DS: Summary Hospital Course Hospital Course: admission hpi: Chief Complaint: Fall This is a 63-year-old female with pertinent history of essential hypertension, DVT/PE on Eliquis, mixed hyperlipidemia, mood disorder, gnk-xawahgp-ecnpsptki diabetes mellitus, urinary incontinence, gastroesophageal reflux disease who presents to the emergency department after a fall and for evaluation of left leg pain. Patient states that as she was walking downstairs, she tripped and landed on her left ankle. Did not lose consciousness prior to the fall. No rhythmic jerking movement of extremities. No head strike. No fever, chills, chest discomfort, palpitations, abdominal pain, changes in urinary or bowel habits. In the emergency department, imaging with spiral community fracture involving the distal left tibia and fibula. Orthopedic surgery was consulted who requested admission. Hospital course: Patient underwent operative fixation of the Comminuted fracture of distal left tibia and fibula due to mechanical fall on 09/16/23 and doing well post operatively. Pain is controlled on oxycodone. PT is recommending STR. History of DVT/PE: Eliquis was on hold for surgery and is restarted Essential hypertension: Continue Norvasc Ybh-nypdlkf-[id number] diabetes mellitus to continue metformin, check poc, diabetic diet Mixed hyperlipidemia:continue statin Mood disorder: Continue home mood stabilizers Gastroesophageal reflux disease: On PPI Dispo to short term rehab for less than 30 days Time Attestation Discharge coordination time: Greater than 30 minutes Quality: Safe Use of Opioids Does Pt have an Active Cancer Diagnosis on the Problem List?: No Quality: Stroke Does the patient have a stroke diagnosis?: No Physical Exam Vital Signs: Vital Signs: Last Vital Signs Temp 98.8 F 09/18/23 07:13 Pulse 76 09/18/23 11:18 Resp 18 09/18/23 07:13 BP 148/71 H 09/18/23 11:18 Pulse Ox 91 L 09/18/23 11:18 O2 Del Method Room Air 09/18/23 07:13 O2 Flow Rate 2.0 09/17/23 07:55 BMI result Body Mass Index 38.7 DS: Data Data Completed and Pending Labs on day of discharge: Laboratory Results - last 24 hr 09/17/23 09/17/23 09/18/23 17:15 19:59 05:31 WBC 8.4 RBC 3.35 L Hgb 9.8 L Hct 29.8 L MCV 89.0 MCH 29.3 MCHC 32.9 RDW 14.3 Plt Count 218 MPV 10.4 Immature Gran % (Auto) 0.4 Neut % (Auto) 56.0 Lymph % (Auto) 33.9 [place] % (Auto) 7.8 Eos % (Auto) 1.7 Baso % (Auto) 0.2 Lymph # (Auto) 2.8 [place] # (Auto) 0.7 Eos # (Auto) 0.1 Baso # (Auto) 0.0 Abs Immat Gran (auto) 0.03 Absolute Neuts (auto) 4.7 Absolute Nucleated RBC 0.000 Nucleated RBC % (auto) 0.0 Sodium 138 Potassium 3.6 Chloride 104 Carbon Dioxide 27 Anion Gap 11 L BUN 14 Creatinine 0.80 Estim Creat Clear Calc 78.8 Estimated GFR > 60 POC Glucose 138 H 149 H Fasting Glucose 98 Calcium 9.1 09/18/23 09/18/23 07:16 11:04 WBC RBC Hgb Hct MCV MCH MCHC RDW Plt Count MPV Immature Gran % (Auto) Neut % (Auto) Lymph % (Auto) [place] % (Auto) Eos % (Auto) Baso % (Auto) Lymph # (Auto) [place] # (Auto) Eos # (Auto) Baso # (Auto) Abs Immat Gran (auto) Absolute Neuts (auto) Absolute Nucleated RBC Nucleated RBC % (auto) Sodium Potassium Chloride Carbon Dioxide Anion Gap BUN Creatinine Estim Creat Clear Calc Estimated GFR POC Glucose 103 135 H Fasting Glucose Calcium Discharge Plan Discharge Anticipated Discharge Date/Time: 09/18/23 12:17 Patient Disposition: Xfer SNF Discharge Diagnosis: Tibia Fibula fracture of the left side Referrals: [facility] [Other] - 1 Day (Acute Rehab ) Flakita Calero MD [Primary Care Provider] - 1 Week Desire Hernandez, PA-C [Physician Fretted Instrument Maker Hand] - 09/28/23 9:45 am (09/28/23 09:45 ) Discharge Medications: New docusate sodium 100 mg Capsule 100 mg PO BID Qty: 60 0RF oxycodone 5 mg Tablet 10 mg PO Q4H PRN (Reason: Pain, Moderate(Pain Scale 4-6)) Qty: 15 0RF Rx Instructions: Partial Fill upon patient request. Continued metformin 500 mg tablet 500 mg PO DAILY Qty: 90 1RF trazodone 100 mg tablet 100 mg PO BEDTIME Qty: 30 5RF atorvastatin 40 mg tablet 40 mg PO BEDTIME Qty: 90 1RF fluoxetine 20 mg capsule 40 mg PO DAILY Qty: 60 5RF buspirone 5 mg tablet 5 mg PO TID Qty: 90 5RF Eliquis 5 mg tablet 5 mg PO BID Qty: 60 5RF cetirizine 10 mg tablet 10 mg PO DAILY omeprazole 40 mg capsule,delayed release(DR/EC) 40 mg PO QPM tolterodine 4 mg capsule,extended release 24hr 4 mg PO DAILY amlodipine 2.5 mg tablet 5 mg PO DAILY Protocol: Hold for SBP< HOLD for SBP < : 90 Discharge Orders: Discharge Order (Routine); Ordered 09/18/23 Ordered By: Osiel Bedolla Diet: Advance to usual diet Activity on Discharge: Use cane or walker Stand Alone Forms: Patient Portal Discharge page Activity Restrictions/Additional Instructions: NWB x3 months LLE RLE ankle sprain - WBAT with boot for comfort RLE Elevate 3 pillows above heart level keep LLE splint c/d/i. No tub bath or shower-Keep dressing clean, dry and intact Continue Eliquis for dvt ppx Follow up with orthopedics in 2 weeks Care Plan Goals: recovery from Fracture Health Concerns: Tibia/Fibula fracture Plan of Treatment: To rehab with above instructions Assessment: See above Discharge Date/Time: 09/18/23 15:50
--- NOTE | 2023-09-18 13:16 | MHC.CM.PN ---
EMR reviewed. Per MD rounds patient is medically cleared for dc to acute rehab. [facility] has offered a bed and patient accepted. BLS transport booked for 3:30pm. , RN, facility and patient aware. IMM delivered.
[2023-09-18 15:28] VITALS: BP 133/66; PULSE 76; RESP 18; TEMP 36.9; O2SAT 95
--- NOTE | 2023-09-20 08:04 | P.OP_ITS ---
Operative Note Operative Note Date of Service: 09/16/23 Narrative: Date of Service: 09/16/23 Pre-op diagnosis: Left tibia and fibular fracture Post-op diagnosis: same Procedure: ORIF tibia ORIF fibula Implants: [place] Surgeon: Danilo Rodriguez MD Anesthesia: GETA Was an Electrical Maintenance Man used for this Procedure?: Yes Electrical Maintenance Man: Desire Hernandez Estimated blood loss (mL): 10 Tourniquet time (min): 95 IV fluids (mL): 1,100 Pathology: none sent Condition: stable Disposition: PACU Procedure in detail: Patient was brought to the operating room and placed supine on the operative table. All bony prominences were well padded and a time-out was called to identify proper site proper procedure proper surgeon. IV antibiotics per weight were administered. I began by exsanguinating limb is slightly tourniquet to 300 mm Hg. I then made a standard posterolateral incision over the fibula. Full- thickness flaps were taken down to the fibular shaft and distal fibula. The fracture was identified and cleaned with a combination of curette, rongeur and irrigation. A lobster claw was used to provisionally reduce the fracture and a 8 hole distal fibular locking plate was applied using standard AO technique. Biplanar fluoroscopy was used to confirm hardware position and fracture reduction. The tibial reduction imroved dramatically with fibular reduction. Once I was satisfied the reduction was accetable I irrigated copiously and closed with absorbable suture and toyin. I then turned my attention to the medial side. A longitudianl incision was made over the medial malleolus and a periosteal elevator was used subcutaneously to allow for the medial plate to be inserted. Under fluoroscopic guidance I slid the 12 hold medial locking plate up the tibial shaft. The reduction was near anatomic and I placed one bicortical screws through the distal hole . I then placed locking screws using standard AO technique through the distal holes making sure to avoid the articular surface. Three locking bicortical screws were placed through the proximal aspect of the plate using percutaneous stab incisions and one more lockign screw was placed just proximal to the fracture. Overall I was very satisfied with the hardware positioning and the fracture alignment. Therefore all instrumentation was removed and copious irrigation was performed. Absorbable suture and toyin were used for closure and the patient was placed into sterile dressings and a well-padded posterior splint. Tourniquet was let down and the patient was extubated brought to recovery room in stable condition there were no known complications.
== END 2023-09-18 15:50 | disposition skilled nursing facility (03) | DRG 494 ==
LOC: HO.ED 20:26 → HO.EDOVER 21:58 → HO.S3 09-15 15:42
PROVIDERS: Orthopaedic Surgery; Physician Assistant; Admitting Provider Student in an Organized Health Care Education/Training Program; Emergency Provider Emergency Medicine; PCP Internal Medicine; Visit Provider Internal Medicine
PROC: 0QSK04Z Reposition Left Fibula with Internal Fixation Device, Open Approach (ICD-10-PCS; principal; 2023-09-16 10:00)
PROC: 0QSK04Z Reposition Left Fibula with Internal Fixation Device, Open Approach (ICD-10-PCS; 2023-09-16 10:00)
DX: S82.302A Unspecified fracture of lower end of left tibia, initial encounter for closed fracture (principal); S82.832A Other fracture of upper and lower end of left fibula, initial encounter for closed fracture; S82.61XA Displaced fracture of lateral malleolus of right fibula, initial encounter for closed fracture; W19.XXXA Unspecified fall, initial encounter; E11.9 Type 2 diabetes mellitus without complications; I10 Essential (primary) hypertension; F39 Unspecified mood [affective] disorder; E78.2 Mixed hyperlipidemia; Z20.822 Contact with and (suspected) exposure to COVID-19; Z86.711 Personal history of pulmonary embolism; Z87.891 Personal history of nicotine dependence; Z79.01 Long term (current) use of anticoagulants; Z79.84 Long term (current) use of oral hypoglycemic drugs; Z79.899 Other long term (current) drug therapy
CPT/HCPCS: 36415; 71045; 73590; 73610; 80048; 80076; 82947; 85025; 85610; 86850; 86900; 86901; 87635; 93005; 97162; 97167; 97530; 99024; 99285; C1713; J0131; J0665; J0690; J1100; J1170; J1650; J2250; J2270; J2405; J2704; J2795; J3010; J7120

== ENCOUNTER → 2023-09-14 16:25 | Outpatient (BNV) | payer MEDICARE, OTHER, SELFPAY | PROVIDERS: Admitting Provider Student in an Organized Health Care Education/Training Program; Emergency Provider Emergency Medicine; PCP Internal Medicine; Visit Provider Internal Medicine Cardiovascular Disease | DX: Z01.818 Encounter for other preprocedural examination (principal); S82.302A Unspecified fracture of lower end of left tibia, initial encounter for closed fracture | CPT/HCPCS: 93010 ==

== ENCOUNTER → 2023-09-14 17:07 | Outpatient (BNV) | payer MEDICARE, OTHER, SELFPAY | PROVIDERS: Emergency Provider Emergency Medicine; PCP Internal Medicine; Visit Provider Student in an Organized Health Care Education/Training Program | DX: S82.832A Other fracture of upper and lower end of left fibula, initial encounter for closed fracture (principal); S82.891A Other fracture of right lower leg, initial encounter for closed fracture | CPT/HCPCS: 99222; 99232; 99239 ==

== ENCOUNTER → 2023-09-14 20:23 | Outpatient (BNV) | payer MEDICARE, OTHER, SELFPAY | PROVIDERS: Admitting Provider Student in an Organized Health Care Education/Training Program; Emergency Provider Emergency Medicine; PCP Internal Medicine; Visit Provider Physician Assistant | DX: S82.252A Displaced comminuted fracture of shaft of left tibia, initial encounter for closed fracture (principal); S82.452A Displaced comminuted fracture of shaft of left fibula, initial encounter for closed fracture | CPT/HCPCS: 27828; 99221; 99499 ==

== ENCOUNTER 2023-09-28 09:39 | Outpatient (AMB) | payer MEDICARE, OTHER, SELFPAY ==
--- NOTE | 2023-09-28 09:40 | A.OFFVIS_ITS ---
Intake Vital Signs 09/28/23 09:55 Height 5 ft 1.81 in Weight 212 lb 4.882 oz BMI 39.1 Intake Visit Reasons: PO-left tib/fib ORIF 09/16/23 NE Intake Note: Ya is a 63 year old female who presents today for a post op appointment s/p left tib/fib ORIF 09/16/23 NE. Patient reports she is doing well, having discomfort near the insicion site. Allergies Iodinated Contrast Media [IV CONTRAST] Adverse Reaction (Intermediate, Verified 09/28/23 09:40) Rash capsaicin Adverse Reaction (Verified 09/28/23 09:40) Rash perflutren [From Definity] Adverse Reaction (Verified 09/28/23 09:40) Back Pain HPI PO-left tib/fib ORIF 09/16/23 NE HPI Details 63-year-old right hand dominant female ruy ramirez presents in the office today 12 days status post left tibia and fibula ORIF, which was performed on 09/16/[address] Rodriguez. The patient reports she is doing well, but does have some discomfort at the incision site. [facility] Medical History Prolapse of female pelvic organs Prepatellar bursitis Primary hypertension Generalized anxiety disorder Intermittent palpitations COPD (chronic obstructive pulmonary disease) History of COVID-19 COVID-19 vaccine series completed Depression, major, recurrent, in complete remission Herpes zoster Left shoulder tendinitis GERD (gastroesophageal reflux disease) Vitamin D deficiency Vitamin B12 deficiency Calcaneal spur of left foot Arthritis of first metatarsophalangeal (MTP) joint of left foot Deviated nasal septum Diabetes mellitus with microalbuminuria, without long-term current use of insulin History of pulmonary embolism History of thyroid cancer Essential hypertension Dyslipidemia Surgical History Hx of left breast biopsy History of partial thyroidectomy History of surgery History of cervical spinal surgery History of shoulder surgery History of colonoscopy History of tubal ligation H/O spinal fusion Family History Father Alcoholism Mother HTN (hypertension) Hyperlipidemia CVD (cardiovascular disease) Sister Hyperlipidemia Alcoholism Substance use disorder Brother No problems noted. Sister No problems noted. Sister No problems noted. Sister No problems noted. Daughter No problems noted. Daughter No problems noted. Social History Household Members: Significant Other Household Members Other:: 2 Housing: Apartment Do you presently have visiting nurse or other home services: No Alcohol intake: never Patient Tobacco Use Status: Former Tobacco user Quit Date: 20 yrs ago Years Smoked: 4 yrs e-Cigarette/Vaping Use: Never Used Second Hand Smoke Exposure: No Advance Directives Date on File: 11/08/22 service: No Current occupational status: disabled Cognitive needs: No Hearing needs: No Vision needs: Yes Review of Systems Const All systems reviewed & are unremarkable except as noted in HPI and below Physical Exam Vital Signs: BMI result Body Mass Index 39.1 Const General: cooperative, healthy appearing and no acute distress Resp Effort & Inspection: normal respiratory effort and able to speak in complete sentences Cardio Rate: regular rate Peripheral pulses: Peripheral pulses 2+ throughout GI Palpation (GI): Soft to palpation Skin Lesions: no lesions Rashes: no rashes Extrem Other: Left lower extremity: Incision site is clean, dry, and intact. Sanjuana and sutures intact. No surrounding erythema or drainage. No signs of infection. Able to dorsiflex and plantarflex. Sensation intact. Pedal pulse intact. Office Procedures Casting/Splints 77216-[id number] Leg Cast Application Procedure code (CPT) selection complete Assessment & Plan Assessment & Plan (1) Status post open reduction and internal fixation (ORIF) of fracture: Onset Date: ~09/16/23 Comment: Left tibia ORIF and left fibula ORIF 09/16/2023 Dr. Danilo Rodriguez Code(s): Z98.890 - Other specified postprocedural states; Z87.81 - Personal history of (healed) traumatic fracture Plan Ms. Cameron is a 63-year-old right hand dominant female who presents in the office today 12 days status post left tibia and fibula ORIF, which was performed on 09/16/[address] Rodriguez. The patient reports she is doing well, but does have some discomfort at the incision site. Sanjuana and sutures were removed and steri-stripes were applied while in the office today. Dr. Rodriguez was available to review the x-rays and speak with me about the patient while in the office today, and a collaborative treatment plan was made. The patient will be placed in a short leg cast, custom made, while in the office today. She will remain non-weight bearing on the left lower extremity for about 3 months post-op. Follow up will be in 4 weeks with repeat x-rays, or sooner if needed. X-rays of the left lower extremity which were obtained while in the office today and were reviewed by me, Desire Hernandez PA-C, revealed orthopedic hardware intact with routine healing. Orders: Orders XR tibia fibula LT 2V Today S82.302A - Unspecified fracture of lower end of left tibia, initial encounter for closed fracture, S82.839A - Other fracture of upper and lower end of unspecified fibula, initial encounter for closed fracture, S82.899A - Other fracture of unspecified lower leg, initial encounter for closed fracture Patient Instructions: Scribed for Desire Hernandez PA-C by Ayah Do medical care evaluation specialist, on 09/28/2023 at 9:43 am, EST. Coding Level of Care Code Global (65985) Diagnoses Status post open reduction and internal fixation (ORIF) of fracture Z98.890; Z87.81 CPT Codes Casting - CPT: 64503-[id number] Leg Cast Application ([id number])
[2023-09-28 09:55] VITALS: BMI 39.1
== END 2023-09-28 11:07 | disposition home or self-care (01) ==
PROVIDERS: PCP Internal Medicine; Visit Provider Physician Assistant
DX: S82.832D Other fracture of upper and lower end of left fibula, subsequent encounter for closed fracture with routine healing (principal); S82.302D Unspecified fracture of lower end of left tibia, subsequent encounter for closed fracture with routine healing; W10.8XXD Fall (on) (from) other stairs and steps, subsequent encounter
CPT/HCPCS: 29405; 99024

== ENCOUNTER 2023-09-28 10:23 | Outpatient (REF) | payer OTHER, MEDICARE, SELFPAY ==
--- NOTE | ~2023-09-28 | XR_ITS ---
EXAMINATION: XR TIBIA AND FIBULA, LEFT CLINICAL INFORMATION: Follow-up tibial and fibular fractures. COMPARISON: Prior examinations, most recently 09/16/2023. TECHNIQUE: AP and lateral views of the left tibia and fibula were obtained. FINDINGS: Intact orthopedic fixator plates and screws are applied to oblique, comminuted fractures of the distal left tibia and fibula. No hardware failure or loosening is seen. Alignment is stable, with approximately 9 mm of posterior displacement redemonstrated of the distal tibial fracture fragment and 3 mm of posterior displacement of the distal fibular fracture fragment. There is no significant new callus formation. There is no left ankle joint effusion. Boehler's angle is normal. There are small posterior and plantar calcaneal spurs. No focal soft tissue swelling, gas or foreign body is seen. Lateral ankle skin toyin are noted. XR/XR tibia fibula LT 2V IMPRESSION: There is stable alignment of distal left tibial and fibular fractures status-post ORIF. No hardware failure or loosening seen. There is no significant new callus formation.
== END 2023-09-28 10:24 | disposition home or self-care (01) ==
LOC: HO.HOSX 10:23
PROVIDERS: Visit Provider Physician Assistant
DX: S82.302A Unspecified fracture of lower end of left tibia, initial encounter for closed fracture (principal); S82.832A Other fracture of upper and lower end of left fibula, initial encounter for closed fracture
CPT/HCPCS: 29405; 73590; 99212

== ENCOUNTER 2023-11-06 07:03 | Outpatient (REF) | payer MEDICARE, OTHER, SELFPAY ==
--- NOTE | ~2023-11-06 | XR_ITS ---
EXAMINATION: XR TIBIA AND FIBULA, LEFT CLINICAL INFORMATION: Pain. COMPARISON: Radiographs dated 09/28/2023. TECHNIQUE: AP and lateral views of the left tibia and fibula were obtained. FINDINGS: Bony alignment and mineralization are normal. Orthopedic fixator plates and fixator screws applied to the mid to distal right tibia and the distal left fibula are intact, without hardware failure loosening. Healing fractures are redemonstrated of the distal tibia and fibula, in stable alignment. No dislocation is seen. There is no focal soft tissue swelling, gas or foreign body. XR/XR tibia fibula LT 2V IMPRESSION: There is stable alignment of healing fractures of the distal right tibia and fibula. No hardware failure or loosening is seen. There is no significant new callus formation.
== END 2023-11-06 07:04 | disposition home or self-care (01) ==
LOC: HO.HOSX 07:03
PROVIDERS: Visit Provider Orthopaedic Surgery
DX: Z98.890 Other specified postprocedural states (principal); Z87.81 Personal history of (healed) traumatic fracture
CPT/HCPCS: 73590; 99212

== ENCOUNTER 2023-11-06 10:25 | Outpatient (AMB) | payer MEDICARE, OTHER, SELFPAY ==
--- NOTE | 2023-11-06 10:39 | A.OFFVIS_ITS ---
Intake Intake Visit Reasons: PO-left tib/fib ORIF 09/16/23 NE Intake Note: aY is a 63 year old female who presents to the office today for a PO left tib/fib ORIF on 09/16/23. Pt states she is feeling well. Pt states the pain is much less than before. Allergies Iodinated Contrast Media [IV CONTRAST] Adverse Reaction (Intermediate, Verified 11/06/23 10:39) Rash capsaicin Adverse Reaction (Verified 11/06/23 10:39) Rash perflutren [From Definity] Adverse Reaction (Verified 11/06/23 10:39) Back Pain HPI PO-left tib/fib ORIF 09/16/23 NE HPI Details Ya is a 63 year old woman who presents ~2 months S/P left tibia & fibula ORIF. She says she is doing well, continues to have some pain but she says this is better than it was before. [facility] Medical History Prolapse of female pelvic organs Prepatellar bursitis Primary hypertension Generalized anxiety disorder Intermittent palpitations COPD (chronic obstructive pulmonary disease) History of COVID-19 COVID-19 vaccine series completed Depression, major, recurrent, in complete remission Herpes zoster Left shoulder tendinitis GERD (gastroesophageal reflux disease) Vitamin D deficiency Vitamin B12 deficiency Calcaneal spur of left foot Arthritis of first metatarsophalangeal (MTP) joint of left foot Deviated nasal septum Diabetes mellitus with microalbuminuria, without long-term current use of insulin History of pulmonary embolism History of thyroid cancer Essential hypertension Dyslipidemia Surgical History Status post open reduction and internal fixation (ORIF) of fracture (~09/16/23) Hx of left breast biopsy History of partial thyroidectomy History of surgery History of cervical spinal surgery History of shoulder surgery History of colonoscopy History of tubal ligation H/O spinal fusion Family History Father Alcoholism Mother HTN (hypertension) Hyperlipidemia CVD (cardiovascular disease) Sister Hyperlipidemia Alcoholism Substance use disorder Brother No problems noted. Sister No problems noted. Sister No problems noted. Sister No problems noted. Daughter No problems noted. Daughter No problems noted. Social History Household Members: Significant Other Household Members Other:: 2 Housing: Apartment Do you presently have visiting nurse or other home services: No Alcohol intake: never Patient Tobacco Use Status: Former Tobacco user Quit Date: 20 yrs ago Years Smoked: 4 yrs e-Cigarette/Vaping Use: Never Used Second Hand Smoke Exposure: No Advance Directives Date on File: 11/08/22 service: No Current occupational status: disabled Cognitive needs: No Hearing needs: No Vision needs: Yes Review of Systems Const All systems reviewed & are unremarkable except as noted in HPI and below Physical Exam Const General: no acute distress, alert and awake Orientation/consciousness: patient oriented x3 HEENT Head: Yes normocephalic and Yes atraumatic Eyes EOM: EOMs intact bilaterally Resp Effort & Inspection: normal respiratory effort and able to speak in complete sentences Cardio Jugular venous distension: no JVD Skin General skin exam: turgor normal Rashes: no rashes Neuro General: patient oriented x3 Extrem Other: inc c/d/i 0-20 deg motion ankle SILT Psych Appearance: grossly normal Affect: normal affect Attitude: cooperative Results Reviewed Results Reviewed: I personally reviewed relevant radiographs. Left tib/fib with no change in hardware alignement No hardware complications Assessment & Plan Assessment & Plan (1) Status post open reduction and internal fixation (ORIF) of fracture: Onset Date: ~09/16/23 Comment: Left tibia ORIF and left fibula ORIF 09/16/2023 Dr. Danilo Rordiguez Code(s): Z98.890 - Other specified postprocedural states; Z87.81 - Personal history of (healed) traumatic fracture Plan: Cont NWB Home exercises for ankle Boot given F/u 6 weeks Plan Prepared for Danilo Rodriguez MD by Victorino Zarate clinical medical transcriptionist, on 11/06/23 at 11:02 AM, EST. Orders: Orders XR tibia fibula LT 2V Today Coding Level of Care Code Global (31155) Diagnoses Status post open reduction and internal fixation (ORIF) of fracture Z98.890; Z87.81
== END 2023-11-06 11:25 | disposition home or self-care (01) ==
PROVIDERS: PCP Internal Medicine; Visit Provider Orthopaedic Surgery
DX: Z98.890 Other specified postprocedural states (principal); Z87.81 Personal history of (healed) traumatic fracture
CPT/HCPCS: 99024

== ENCOUNTER 2023-12-18 08:18 | Outpatient (AMB) | payer MEDICARE, OTHER, SELFPAY ==
--- NOTE | 2023-12-18 08:22 | MHC.OFFVIS ---
Intake Vital Signs 12/18/23 08:38 Height 5 ft 2 in Weight 195 lb BMI 35.7 Intake Visit Reasons: OV -left tib/fib ORIF 09/16/23 NE Intake Note: Ya is a 63 year old female who presents to the office today for a follow up of her left ankle s/p Left tib/fib ORIF 09/16/23. Patient reports she is having tingling in her ankle at night, but does not complain of any pain. Concerned about deformity in lateral aspect of her ankle. She presents today in a wheel chair and has remained NWB in the boot. Allergies Iodinated Contrast Media [IV CONTRAST] Adverse Reaction (Intermediate, Verified 12/18/23 08:37) Rash capsaicin Adverse Reaction (Verified 12/18/23 08:37) Rash perflutren [From Definity] Adverse Reaction (Verified 12/18/23 08:37) Back Pain HPI OV -left tib/fib ORIF 09/16/23 NE HPI Details Ya is a 63 year old female who presents to the office today for a follow up of her left ankle s/p Left tib/fib ORIF 09/16/23. Patient reports she is having tingling in her ankle at night, but does not complain of any pain. Concerned about deformity in lateral aspect of her ankle. She presents today in a wheel chair and has remained NWB in the boot. FORMERLY [facility], [facility] Medical History Prolapse of female pelvic organs Prepatellar bursitis Primary hypertension Generalized anxiety disorder Intermittent palpitations COPD (chronic obstructive pulmonary disease) History of COVID-19 COVID-19 vaccine series completed Depression, major, recurrent, in complete remission Herpes zoster Left shoulder tendinitis GERD (gastroesophageal reflux disease) Vitamin D deficiency Vitamin B12 deficiency Calcaneal spur of left foot Arthritis of first metatarsophalangeal (MTP) joint of left foot Deviated nasal septum Diabetes mellitus with microalbuminuria, without long-term current use of insulin History of pulmonary embolism History of thyroid cancer Essential hypertension Dyslipidemia Surgical History Status post open reduction and internal fixation (ORIF) of fracture (~09/16/23) Hx of left breast biopsy History of partial thyroidectomy History of surgery History of cervical spinal surgery History of shoulder surgery History of colonoscopy History of tubal ligation H/O spinal fusion Family History Father Alcoholism Mother HTN (hypertension) Hyperlipidemia CVD (cardiovascular disease) Sister Hyperlipidemia Alcoholism Substance use disorder Brother No problems noted. Sister No problems noted. Sister No problems noted. Sister No problems noted. Daughter No problems noted. Daughter No problems noted. Social History Household Members: Significant Other Household Members Other:: 2 Housing: Apartment Do you presently have visiting nurse or other home services: No Alcohol intake: never Patient Tobacco Use Status: Former Tobacco user Quit Date: 20 yrs ago Years Smoked: 4 yrs e-Cigarette/Vaping Use: Never Used Second Hand Smoke Exposure: No Advance Directives Date on File: 11/08/22 service: No Current occupational status: disabled Cognitive needs: No Hearing needs: No Vision needs: Yes Physical Exam Vital Signs: BMI result Body Mass Index 35.7 Extrem Other: 5-25 deg ankle motion well healed incisions no pain Results Reviewed Results Reviewed: I personally reviewed relevant radiographs. No hardware complications Healing cominuted distal tibia fracture Assessment & Plan Assessment & Plan (1) Status post open reduction and internal fixation (ORIF) of fracture: Onset Date: ~09/16/23 Comment: Left tibia ORIF and left fibula ORIF 09/16/2023 Dr. Danilo Rodriguez Code(s): Z98.890 - Other specified postprocedural states; Z87.81 - Personal history of (healed) traumatic fracture Plan: S/p left distal tib/fib s/p ORIF May begin weight bearing in boot PT for gait training Orders: Orders PT Evaluation and Treatment Today Z87.81 - Personal history of (healed) traumatic fracture, Z98.890 - Other specified postprocedural states XR tibia fibula LT 2V Today Z87.81 - Personal history of (healed) traumatic fracture, Z98.890 - Other specified postprocedural states Coding Level of Care Code Global (68138) Diagnoses Status post open reduction and internal fixation (ORIF) of fracture Z98.890; Z87.81
[2023-12-18 08:38] VITALS: BMI 35.7
== END 2023-12-18 09:01 | disposition home or self-care (01) ==
PROVIDERS: PCP Internal Medicine; Visit Provider Orthopaedic Surgery
DX: S83.252D Bucket-handle tear of lateral meniscus, current injury, left knee, subsequent encounter (principal); S82.452D Displaced comminuted fracture of shaft of left fibula, subsequent encounter for closed fracture with routine healing; Z48.89 Encounter for other specified surgical aftercare
CPT/HCPCS: 99213

== ENCOUNTER 2023-12-18 09:52 | Outpatient (REF) | payer MEDICARE, OTHER, SELFPAY ==
--- NOTE | ~2023-12-18 | XR_ITS ---
EXAMINATION: XR TIBIA AND FIBULA, LEFT CLINICAL INFORMATION: Fracture with ORIF. COMPARISON: Multiple priors, most recent left tibial and fibular radiographs dated 11/06/2023. TECHNIQUE: AP and lateral views of the left tibia and fibula were obtained. FINDINGS: Medial tibial and lateral fibular stabilization plates with multiple fixation screws. No hardware fracture or perihardware lucency to suggest loosening or infection. Comminuted distal tibial fracture in unchanged anatomic alignment with posterior displacement of the distal fracture fragment and cortical step-off measuring up to 0.8 cm in AP dimension. Findings are similar when compared to the prior examination. No significant interval new bone/callus formation. Mildly displaced, oblique distal fibular fracture in unchanged anatomic alignment without significant new bone/callus formation. No concerning lytic or blastic osseous lesion. No abnormal soft tissue calcification. XR/XR tibia fibula LT 2V IMPRESSION: 1. Tibial and fibular ORIF without evidence of hardware complication. 2. Distal tibial and fibular fractures in unchanged anatomic alignment without significant new bone/callus formation.
== END 2023-12-18 09:53 | disposition home or self-care (01) ==
LOC: HO.HOSX 09:52
PROVIDERS: Visit Provider Orthopaedic Surgery
DX: R20.2 Paresthesia of skin (principal); Z87.81 Personal history of (healed) traumatic fracture; Z98.890 Other specified postprocedural states
CPT/HCPCS: 73590

== ENCOUNTER 2024-01-26 07:31 | Outpatient (REF) | payer MEDICARE, OTHER, SELFPAY ==
[2024-01-26 11:03] LABS: Estimated Average Glucose 137 mg/dL; Hemoglobin A1c % 6.4 % (<6.0)
[2024-01-26 11:25] LABS: Alanine Aminotransferase 25 U/L (0-31); Anion Gap 14 (12-20); Aspartate Amino Transferase 20 U/L (5-31); Blood Urea Nitrogen 9 mg/dL (9-16); Calcium 9.3 mg/dL (8.4-10.2); Carbon Dioxide 24 mmol/L (22-29); Chloride 107 mmol/L (96-108); Cholesterol 118 mg/dL (<200); Estimated Glomerular Filt Rate > 60; Glucose Fasting 135 mg/dL (60-99); HDL Cholesterol 36 mg/dL (>40); LDL Cholesterol Calculated 56 mg/dL (<100); Potassium 4.1 mmol/L (3.3-5.1); Sodium 141 mmol/L (135-145); Triglycerides 131 mg/dL (<150); Vitamin D 25-OH Total 48.5 ng/mL (>30)
[2024-01-26 11:35] LABS: Creatinine Urine 79.64 mg/dL; Microalbumin Urine < 5.0 mg/L
== END 2024-01-26 07:32 | disposition home or self-care (01) ==
LOC: HO.HMGCLDS 07:31
PROVIDERS: PCP Internal Medicine; Visit Provider Internal Medicine
DX: F41.1 Generalized anxiety disorder (principal); R00.2 Palpitations; E78.5 Hyperlipidemia, unspecified; E11.29 Type 2 diabetes mellitus with other diabetic kidney complication; R80.9 Proteinuria, unspecified; I10 Essential (primary) hypertension; Z78.0 Asymptomatic menopausal state
CPT/HCPCS: 36415; 80048; 80061; 82043; 82306; 82570; 83036; 84450; 84460

== ENCOUNTER 2024-01-29 09:19 | Outpatient (AMB) | payer MEDICARE, OTHER, SELFPAY ==
--- NOTE | 2024-01-29 09:42 | A.OFFVIS_ITS ---
Intake Visit Reasons: OV -left tib/fib ORIF 09/16/23 NE-follow up Intake Note: Ya is a 63 year old female who presents to the office today for a follow up of her left ankle s/p Left tib/fib ORIF 09/16/23. Patient reports that she is doing great, with no concerns. She reports that he numbness and tingling has resolved. She has mild pain on the medial aspect and along the anterioir aspect of the tibia but she feels that thtis is due to the walking boot. Allergies Iodinated Contrast Media [IV CONTRAST] Adverse Reaction (Intermediate, Verified 12/18/23 08:37) Rash capsaicin Adverse Reaction (Verified 12/18/23 08:37) Rash perflutren [From Definity] Adverse Reaction (Verified 12/18/23 08:37) Back Pain HPI HPI OV -left tib/fib ORIF 09/16/23 NE-follow up: Details: Ya is almost 5 months status post ORIF left tib-fib. She has been walking with a boot and feels pretty good. She states the only reason she swells up is because she is wearing the boot. She would like to stop wearing the. FORMERLY [facility] Medical History Prolapse of female pelvic organs Prepatellar bursitis Primary hypertension Generalized anxiety disorder Intermittent palpitations COPD (chronic obstructive pulmonary disease) History of COVID-19 COVID-19 vaccine series completed Depression, major, recurrent, in complete remission Herpes zoster Left shoulder tendinitis GERD (gastroesophageal reflux disease) Vitamin D deficiency Vitamin B12 deficiency Calcaneal spur of left foot Arthritis of first metatarsophalangeal (MTP) joint of left foot Deviated nasal septum Diabetes mellitus with microalbuminuria, without long-term current use of insulin History of pulmonary embolism History of thyroid cancer Essential hypertension Dyslipidemia Surgical History Status post open reduction and internal fixation (ORIF) of fracture (~09/16/23) Hx of left breast biopsy History of partial thyroidectomy History of surgery History of cervical spinal surgery History of shoulder surgery History of colonoscopy History of tubal ligation H/O spinal fusion Family History Father Alcoholism Mother HTN (hypertension) Hyperlipidemia CVD (cardiovascular disease) Sister Hyperlipidemia Alcoholism Substance use disorder Brother No problems noted. Sister No problems noted. Sister No problems noted. Sister No problems noted. Daughter No problems noted. Daughter No problems noted. Social History Household Members: Significant Other Household Members Other:: 2 Housing: Apartment Do you presently have visiting nurse or other home services: No Alcohol intake: never Patient Tobacco Use Status: Former Tobacco user Quit Date: 20 yrs ago Years Smoked: 4 yrs e-Cigarette/Vaping Use: Never Used Second Hand Smoke Exposure: No Advance Directives Date on File: 11/08/22 service: No Current occupational status: disabled Cognitive needs: No Hearing needs: No Vision needs: Yes Physical Exam Extrem Other: Left tib-fib with well-healed incisions. Palpable but not prominent medial hardware. 20 degree arc of ankle motion. Normal gait with no antalgia Results Reviewed Results Reviewed: I personally reviewed relevant radiographs. Left tib-fib radiographs demonstrate healing distal tib fib fracture with no hardware complications. Assessment & Plan Assessment & Plan (1) Status post open reduction and internal fixation (ORIF) of fracture: Onset Date: ~09/16/23 Comment: Left tibia ORIF and left fibula ORIF 09/16/2023 Dr. Danilo Rodriguez Code(s): Z98.890 - Other specified postprocedural states; Z87.81 - Personal history of (healed) traumatic fracture Category: Surgical Plan: S/p left distal tib/fib s/p ORIF May begin weight without the boot Follow-up 3 months. Orders: Orders XR tibia fibula LT 2V Today Z87.81 - Personal history of (healed) traumatic fracture, Z98.890 - Other specified postprocedural states Coding Level of Care Code Est Pt Level 3 (75012) Diagnoses Status post open reduction and internal fixation (ORIF) of fracture Z98.890; Z87.81
== END 2024-01-29 10:45 | disposition home or self-care (01) ==
PROVIDERS: PCP Internal Medicine; Visit Provider Orthopaedic Surgery
DX: S82.899D Other fracture of unspecified lower leg, subsequent encounter for closed fracture with routine healing (principal)
CPT/HCPCS: 99213

== ENCOUNTER 2024-01-29 09:19 | Outpatient (REF) | payer MEDICARE, OTHER, SELFPAY ==
--- NOTE | ~2024-01-29 | XR_ITS ---
EXAMINATION: XR TIBIA AND FIBULA, LEFT CLINICAL INFORMATION: Reason for Exam Z98.890 - Other specified postprocedural states COMPARISON: Multiple prior x-rays most recent 12/18/2023 TECHNIQUE: AP and lateral views of the left tibia and fibula were obtained. FINDINGS: Orthopedic fixation of distal tibia and fibular fracture redemonstrated. Hardware intact. In the tibia the fracture lines alignment is unchanged with minimal osseous bridging of the fracture lines are slightly less conspicuous. Fibula: Unchanged alignment with slightly more osseous bridging compared to prior. XR/XR tibia fibula LT 2V IMPRESSION: 1. Minimal healing of the distal tibia and fibular fracture since the prior examination. 2. Unchanged alignment.
== END 2024-01-29 09:20 | disposition home or self-care (01) ==
LOC: HO.HOSX 09:19
PROVIDERS: Visit Provider Orthopaedic Surgery
DX: M79.662 Pain in left lower leg (principal); Z98.890 Other specified postprocedural states; Z87.81 Personal history of (healed) traumatic fracture
CPT/HCPCS: 73590

== ENCOUNTER 2024-02-01 08:41 | Outpatient (AMB) | payer MEDICARE, OTHER, SELFPAY ==
--- NOTE | 2024-02-01 08:38 | MHC.PC.OV ---
Intake Visit Reasons: follow up labs i phone [phone] Allergies Iodinated Contrast Media [IV CONTRAST] Adverse Reaction (Intermediate, Verified 02/01/24 08:39) Rash capsaicin Adverse Reaction (Verified 02/01/24 08:39) Rash perflutren [From Definity] Adverse Reaction (Verified 02/01/24 08:39) Back Pain Tobacco use date assessed: 02/01/24 Dental Screening Dental Screen Date: 02/01/24 Did you have a dental visit in the last 12 months?: No Was dental information given to patient?: No HPI follow up labs i phone [phone] HPI Details 63-year-old lady with history of spontaneous bilateral pulmonary emboli currently on Eliquis, here today for follow-up on her diabetes mellitus , hyperlipidemia, , hypertension , generalized anxiety disorder. She has been compliant with taking her medications, as well as following recommended diet. She has been feeling well with no complaints at present time. [facility] Medical History Anemia Type 2 diabetes mellitus without complication, without long-term current use of insulin Prolapse of female pelvic organs Prepatellar bursitis Primary hypertension Generalized anxiety disorder Intermittent palpitations COPD (chronic obstructive pulmonary disease) History of COVID-19 COVID-19 vaccine series completed Depression, major, recurrent, in complete remission Herpes zoster Left shoulder tendinitis GERD (gastroesophageal reflux disease) Vitamin D deficiency Vitamin B12 deficiency Calcaneal spur of left foot Arthritis of first metatarsophalangeal (MTP) joint of left foot Deviated nasal septum History of pulmonary embolism History of thyroid cancer Essential hypertension Dyslipidemia Surgical History Status post open reduction and internal fixation (ORIF) of fracture (~09/16/23) Hx of left breast biopsy History of partial thyroidectomy History of surgery History of cervical spinal surgery History of shoulder surgery History of colonoscopy History of tubal ligation H/O spinal fusion Family History Father Alcoholism Mother HTN (hypertension) Hyperlipidemia CVD (cardiovascular disease) Sister Hyperlipidemia Alcoholism Substance use disorder Brother No problems noted. Sister No problems noted. Sister No problems noted. Sister No problems noted. Daughter No problems noted. Daughter No problems noted. Social History Household Members: Significant Other Household Members Other:: 2 Housing: Apartment Do you presently have visiting nurse or other home services: No Alcohol intake: never Patient Tobacco Use Status: Former Tobacco user Quit Date: 20 yrs ago Years Smoked: 4 yrs e-Cigarette/Vaping Use: Never Used Second Hand Smoke Exposure: No Advance Directives Date on File: 11/08/22 service: No Current occupational status: disabled Cognitive needs: No Hearing needs: No Vision needs: Yes Questionnaire PHQ-9 Over the last 2 weeks, how often have you been bothered by any of the following problems? 1. Little interest or pleasure in doing things: not at all 2. Feeling down, depressed, or hopeless: not at all 3. Trouble falling or staying asleep, or sleeping too much: not at all 4. Feeling tired or having little energy: not at all 5. Poor appetite or overeating: not at all 6. Feeling bad about yourself - or that you are a failure or have let yourself or your family down: not at all 7. Trouble concentrating on things, such as reading the newspaper or watching television: not at all 8. Moving or speaking so slowly that other people could have noticed. Or the opposite - being so fidgety or restless that you have been moving around a lot more than usual: not at all 9. Thoughts that you would be better off or of hurting yourself in some way: not at all Total score: 0 Depression Screening Interpretation: Negative Depression Screening Done: Yes 86794 - PHQ-9 Billing: Yes Source: Developed by Drs. Jose Etienne, Luz Falcon, Henrik Hernandez and colleagues, with an educational miesha from [employer]. Thrive Questionnaire Date Thrive assessed: 09/15/23 AUDIT C Alcohol Use Questionnaire (AUDIT-C) 1. How often do you have a drink containing alcohol?: Never Total Score: 0 MARY-7 AMB Questionnaire MARY-7 Date MARY - 7 assessed: 02/01/24 Feeling nervous, anxious, or on edge: 0 = Not at all Not being able to stop or control worryin = Not at all Worrying too much about different things: 0 = Not at all Trouble relaxin = Not at all Being so restless that it is hard to sit still: 0 = Not at all Becoming easily annoyed or irritable: 0 = Not at all Feeling afraid as if something awful might happen: 0 = Not at all Total MARY-7 score (0-4 normal; 5-9 mild; 10-14 moderate; 15-21 severe): 0 Source: Developed by Drs. Jose Etienne, Luz Falocn, Henrik Hernandez and colleagues, with an educational miesha from [employer]. MARY-7 Assessment Billing MARY-7 Assessment Tool: MARY-7 Assessment 96279 Review of Systems Const Denies weakness Eyes Details: sees Dr. Tidwell at [facility] ENT Denies dizziness Card Denies chest pain, Denies chest pain with activity, Denies syncope, Denies rapid heart rate, Denies edema, Denies lightheadedness, Denies palpitations, Denies dyspnea and Denies dyspnea on exertion Resp Denies cough, Denies dyspnea and Denies dyspnea on exertion GI Denies hematochezia and Denies change in stool character Details: Sees Dr. Thomas for her urinary incontinence Sees [facility] for routine Pap and pelvic exam Denies hot flashes and Reports urinary incontinence Musc Denies abnormal gait, Denies muscle cramps, Denies muscle weakness, Denies numbness, Denies radiating pain into limb and Denies tingling Skin/Breast Denies breast pain, Denies breast mass, Denies lesions and Denies rash Neuro Denies abnormal gait, Denies dizziness, Denies syncope, Denies numbness, Denies tingling and Denies weakness Psych Reports no additional complaints Endo Denies palpitations David/Lymph Denies easy bleeding and Denies easy bruising Aller/Immun Reports no additional complaints Physical exam (Primary Care) Tobacco/Smoking Status: Tobacco use Status Tobacco use date assessed 02/01/24 02/01/24 08:40 Patient Tobacco Use Status Former Tobacco user 02/01/24 08:40 Tobacco use type 02/13/23 15:56 e-Cigarette/Vaping Use Never Used 02/01/24 08:40 Depression Screening Interpretation: Negative Thrive Assessment: Date of Thrive Assessment Date Thrive assessed 09/15/23 02/01/24 08:40 Telehealth Telehealth Telehealth Platform: [employer] Location of provider rendering services: practice address Location of patient: address on file Patient Identification confirmed using: Name, : Yes Telehealth method: video Patient verbally consented to treatment: Yes Patient verbally consented to billing insurance company: Yes Patient informed of any privacy concerns related to visit: Yes Minutes spent on Phone/Video with Pt.: 15 Results Reviewed Results Reviewed: marimar: Ya Cameron Age/Sex: 63/F : 1960 Unit#: [id number] Attend Dr: Flakita Calero MD Re01/26/24 Status: DEP REF [facility] Disch: SPEC : [id number] DELFINO: 01/26/24 STATUS: COMP REQ : [id number] RECD: 01/26/24-[address]: Flakita Calero MD COMP: 01/26/24 ENTERED: 01/26/[address]: ORDERED: Met Prof Fast, AST, ALT, Lipid Panel, Vitamin D 25-OH Test Result Flag Reference Sodium 141 135-145 mmol/L Potassium 4.1 3.3-5.1 mmol/L CL 107 96-108 mmol/L CO2 24 22-29 mmol/L Gap 14 12-20 BUN 9 9-16 mg/dL Creat 0.84 0.5-1.4 mg/dL EGFR > 60 NOTE: For -Serbian individuals, multiply the result by 1.210. Chronic Kidney Disease: Estimated GFR < 60 mL/min/1.73m2 Severe Kidney Disease: Estimated GFR < 15 mL/min/1.73m2 FBS 135 H 60-99 mg/dL A fasting glucose of 126 mg/dl or greater on more than one occasion is considered diagnostic of diabetes. CA 9.3 8.4-10.2 mg/dL AST (GOT) 20 5-31 U/L ALT (GPT) 25 0-31 U/L Triglyceride 131 <150 mg/dL Desirable Triglyceride: less than 150 mg/dL Borderline High Triglyceride 150-199 mg/dL High Triglyceride: 200-499 mg/dL Very High Triglyceride: greater than or equal to 5OO mg/dL Cholesterol 118 <200 mg/dL Desirable Cholesterol: less than 200 mg/dL Borderline High Cholesterol: 200-239 mg/dL High Cholesterol: greater than 239 mg/dL LDL Calculated 56 <100 mg/dL Desirable LDL: less than 100 mg/dL Near Optimal/Above Optimal LDL: 110-129 mg/dL Borderline High LDL: 130-159 mg/dL High LDL: 160-189 mg/dL Very High LDL: greater than or equal to 190 mg/dL HDL 36 L >40 mg/dL Desirable HDL: greater than 40 mg/dL Note: This HDL assay may give artificially low results in patients with liver disease. Vit D 25-OH Tot 48.5 >30 ng/mL Health Based Reference Values* < 20 ng/mL Deficient 20-30 ng/mL Insufficient > 30 ng/mL Sufficient Laboratory Tests 12/15/22 05/22/23 01/26/24 12:09 07:52 07:40 WBC 6.8 Hgb 12.8 Hct 38.9 Plt Count 289 Estimat Average Glucose 137 Hemoglobin A1c % 6.3 H 6.4 H Laboratory Tests 01/26/24 07:40 Urine Creatinine 79.64 Urine Microalbumin < 5.0 Microalb/Creat Ratio TNP Assessment and Plan Assessment & Plan (1) Dyslipidemia: Code(s): E78.5 - Hyperlipidemia, unspecified Plan: Reviewed recent fasting lipid profile with patient with levels within normal limits . Continue atorvastatin 40 mg daily , in addition to adherence to low-cholesterol diet and regular exercise, at least 30 minutes 3 to 4 times a week. Advised patient to make healthy food choices, eat more fruits, vegetables, whole grains, wild caught fish and low-fat dairy. Limit amount of meat and fried or fatty food products, as well as processed foods and fast foods. Follow-up scheduled with repeat fasting lipid panel in 4 months. (2) Essential hypertension: Comment: currently under control without meds for a few yrs. Code(s): I10 - Essential (primary) hypertension Plan: Continue with amlodipine (3) Generalized anxiety disorder: Code(s): F41.1 - Generalized anxiety disorder Plan: Continue with fluoxetine and buspirone at the same dose (4) Type 2 diabetes mellitus without complication, without long-term current use of insulin: Code(s): E11.9 - Type 2 diabetes mellitus without complications Plan: Continue metformin 500 mg daily, reinforced importance of following recommended diet and getting regular exercise. Reminded to get yearly diabetes retinopathy screening Orders: Orders Hemoglobin A1c 05/12/24 D64.9 - Anemia, unspecified, E11.9 - Type 2 diabetes mellitus without complications, E78.5 - Hyperlipidemia, unspecified, F41.1 - Generalized anxiety disorder, I10 - Essential (primary) hypertension, K21.9 - Gastro-esophageal reflux disease without esophagitis Lipid Panel 05/12/24 D64.9 - Anemia, unspecified, E11.9 - Type 2 diabetes mellitus without complications, E78.5 - Hyperlipidemia, unspecified, F41.1 - Generalized anxiety disorder, I10 - Essential (primary) hypertension, K21.9 - Gastro-esophageal reflux disease without esophagitis Aspartate Amino Transferase 05/12/24 D64.9 - Anemia, unspecified, E11.9 - Type 2 diabetes mellitus without complications, E78.5 - Hyperlipidemia, unspecified, F41.1 - Generalized anxiety disorder, I10 - Essential (primary) hypertension, K21.9 - Gastro-esophageal reflux disease without esophagitis Alanine Aminotransferase 05/12/24 D64.9 - Anemia, unspecified, E11.9 - Type 2 diabetes mellitus without complications, E78.5 - Hyperlipidemia, unspecified, F41.1 - Generalized anxiety disorder, I10 - Essential (primary) hypertension, K21.9 - Gastro-esophageal reflux disease without esophagitis Vitamin D 25-OH Total 05/12/24 D64.9 - Anemia, unspecified, E11.9 - Type 2 diabetes mellitus without complications, E78.5 - Hyperlipidemia, unspecified, F41.1 - Generalized anxiety disorder, I10 - Essential (primary) hypertension, K21.9 - Gastro-esophageal reflux disease without esophagitis Basic Metabolic Panel Fasting 05/12/24 D64.9 - Anemia, unspecified, E11.9 - Type 2 diabetes mellitus without complications, E78.5 - Hyperlipidemia, unspecified, F41.1 - Generalized anxiety disorder, I10 - Essential (primary) hypertension, K21.9 - Gastro-esophageal reflux disease without esophagitis Complete Blood Count Auto Diff 05/12/24 D64.9 - Anemia, unspecified, E11.9 - Type 2 diabetes mellitus without complications, E78.5 - Hyperlipidemia, unspecified, F41.1 - Generalized anxiety disorder, I10 - Essential (primary) hypertension, K21.9 - Gastro-esophageal reflux disease without esophagitis IRON PROFILE 05/12/24 D64.9 - Anemia, unspecified, E11.9 - Type 2 diabetes mellitus without complications, E78.5 - Hyperlipidemia, unspecified, F41.1 - Generalized anxiety disorder, I10 - Essential (primary) hypertension, K21.9 - Gastro-esophageal reflux disease without esophagitis Coding Level of Care Code Tele Est Pt Level 4 (41944) Diagnoses Dyslipidemia E78.5 Essential hypertension I10 Generalized anxiety disorder F41.1 Type 2 diabetes mellitus without complication, without long-term current use of insulin E11.9 Additional Codes MARY-7 Assessment Billing - MARY-7 Assessment Tool: MARY-7 Assessment 57036 ([id number])
--- OUTSIDE RECORDS SUMMARY | 2024-02-01 08:43 | XMS_ITS | Patient Health Record ---
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 Name Role Phone Abdias QUIROZ, Flakita Bowens Primary Care Provider Un available Elena Mejia Unavailable [phone] ALLERGIES Allergen (clinical drug ingredient) Drug/Non Drug [...] Vaccine Route Administration Date Status Comme nts Pneumococcal Unknown 06/24/2015 Administered Influenza Unknown 06/24/2015 Administered Influenza Unknown 06/29/2016 Administered Influenza Unknown 05/15/2017 Administered Influenza Unknown 05/15/2017 Administered SOCIAL HISTORY Tobacco Use: Social History [...] confirmed Type II diabetes mellitus without complication (364743095) Problem Osteoarthritis of left ankle and foot (M19.072) Active confirmed [id number] PLAN OF TREATMENT Pending Test Test Name Order Date X ray : Foot, left 3V 07/07/2021 [id number] NAIL, 1-5 06/06/2016 [id number] Plate 05/23/2016 [id number] Plate 01/17/2017 [id number] 06/13/2017 36296- Debride <25 sq cm 07/11/2017 12540- Debride <25 sq cm 07/25/2017 78155- Debride <25 sq cm 07/21/2015 [id number] SKIN/TISSUE 06/27/2017 41180 I&D ABSCESS- SIMPLE,SINGLE 015 84538 I&D ABSCESS- SIMPLE,SINGLE 015 Insurance Providers Payer Name Payer Address Payer Phone Subscriber Number Group Number Insured Name Patient Relationship to Insured Coverage Start Date Coverage End Date Medicare National Govt Sv[employer] [address] [place] [address] [id number] Ya Cameron Self - patient is the insured [facility] [address] [place] [address] [phone] [id number] Ya Cameron Self - patient is the [...] shoulder surgery 08/03/2015 Hospitalization History Reason Date(Month/Year) Martinsergio right shoulder surgery 08/03/15
== END 2024-02-01 13:44 | disposition home or self-care (01) ==
LOC: HO.HMGC 08:41
PROVIDERS: PCP Internal Medicine; Visit Provider Internal Medicine
DX: E11.69 Type 2 diabetes mellitus with other specified complication (principal); E78.5 Hyperlipidemia, unspecified; I10 Essential (primary) hypertension; F41.1 Generalized anxiety disorder
CPT/HCPCS: 99214

== ENCOUNTER 2024-02-23 08:00 | Outpatient (RCR) | payer MEDICARE, OTHER, SELFPAY ==
--- NOTE | 2023-12-29 09:45 | MHC.PT.EP ---
[facility] [place] Office [place] Office [place] Office [address] Wade Franco [address] [phone] F: [phone] F: [phone] F: [phone] F: [phone] Physical Therapy Plan of Care Date of Evaluation: 12/29/23 Date of Surgery: 09/16/23 Diagnosis: This is a 63 yo female presenting to skilled PT with a script for fracture of distal end of left tibia. Assessment: This is a 63 yo female presenting to skilled PT with a script for fracture of distal end of left tibia. Patient reporting a fall after stepping down (1 step, foot was placed too far forward). She had surgery with Dr. Rodriguez (L ORIF tib/fib) on 09/16/23 at [facility] and was NWBing for 3 months. She went to [facility] for a few weeks and then had home PT which she did not find to be helpful. She is now WBAT in a walking boot but states she has been trying to walk without the boot at times in her home (she states that the doctor verbally stated she could do this occasionally in the house). She reports that she gets swelling and symptoms at the tibial plateau from the boot as well as lateral ankle (achy and sharp which is tolerable). Patient also reports a ? bone chip on the R side as well (original x-ray XR/XR ankle RT min 3V IMPRESSION: 1. Spiral comminuted fractures involving the distal left tibia and fibula as described above. 2. Question of tiny avulsion fracture at the tip of the lateral malleolus on the right. Please correlate with pain on palpation in this region as the finding may represent an old remote injury). She continues to have some symptoms on the R on and off still but no new x-rays of this are in the system. Assessment reveals pain that ranges from up to a 6/10 at the worst. Patient demos decreased L ankle ROM, strength of L LE and ankle, TTP at medial incision, medial surrounding soft tissues and joint and impaired posture gait and balance due to boot and weakness with associated forward head and rounded shoulders posturing. Based on functional limitations, impaired QOL and pain tolerance patient is a good candidate for skilled PT 2x/wk for 8wks. 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 Manual therapy to restore motion and function. Therapeutic exercise to improve strength and flexibility. Neuromuscular re-education for posture and balance. Therapeutic activities to return to functional activities of daily living. Electronically signed by: Gabby Terrell PT Please sign and return to therapist. Thank you for your referral.
--- NOTE | 2024-03-21 09:45 | MHC.PT.DC ---
[facility] [place] Office [place] Office [place] Office [address] Wade Franco [address] [phone] F: [phone] F: [phone] F: [phone] F: [phone] Physical Therapy Discharge Report Diagnosis: This is a 63 yo female presenting to skilled PT with a script for fracture of distal end of left tibia. Date of Surgery: 09/16/23 Date of Evaluation: 12/29/23 Date of Discharge: 03/21/24 Treatments to Date: 16 Cancellations to Date: 0 No Shows to Date: 0 Discharge Status: Achieved Goals Improved Function Independent with HEP Discharge Summary: Patient has come to 16 sessions of PT. She has improved her gait, ROM, swelling and function. She does endorse some anterior lopez pain located at the incision near the tibial plateau. She is I in her HEP, has met her goals and is ready for DC. Electronically signed by: Gabby Terrell PT Please sign and return to therapist. Thank you for your referral.
== END 2024-03-21 09:45 | disposition home or self-care (01) ==
LOC: HO.PTCHIC 08:00
PROVIDERS: PCP Internal Medicine; Visit Provider Orthopaedic Surgery
DX: Z98.890 Other specified postprocedural states (principal); S82.302D Unspecified fracture of lower end of left tibia, subsequent encounter for closed fracture with routine healing
CPT/HCPCS: 97014; 97110; 97112; 97140; 97162

== ENCOUNTER 2024-03-08 09:20 | Outpatient (REF) | payer MEDICARE, OTHER, SELFPAY ==
[2024-03-11 23:04] LABS: HPV mRNA E6/E7 Not Detected (Not Detected)
== END 2024-03-08 09:21 | disposition home or self-care (01) ==
LOC: HO.LNP 09:20
PROVIDERS: PCP Internal Medicine; Visit Provider Advanced Practice Midwife
DX: Z01.419 Encounter for gynecological examination (general) (routine) without abnormal findings (principal); Z12.39 Encounter for other screening for malignant neoplasm of breast
CPT/HCPCS: 87624; 87625; 88175; G0101; Q0091

== ENCOUNTER 2024-03-08 09:20 | Outpatient (AMB) | payer MEDICARE, OTHER, SELFPAY ==
[2024-03-08 09:22] VITALS: BP 134/86; BMI 37.2
--- NOTE | 2024-03-08 09:22 | A.OFFVIS_ITS ---
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 Admits to memory issues. She is doing well with no project design engineer concerns. Attempting to eat a healthy diet, limited activity after leg injury. Currently not sexually active. Denies any vaginal dryness or irritation. Has a urologist she sees in [place] on [facility] can not remember the name. STI testing offered; she declined. Last pap smear; unknown. She reports a history of cryosurgery back in the 's. Last mammogram; 10/2022. Colonoscopy is UTD. Denies any family history of breast, ovarian or colon cancer. [facility] Medical History (Updated 03/08/24 @ 09:41 by Gracie Shabazz CNM) History of abnormal cervical Pap smear Anemia Type 2 diabetes mellitus without complication, without long-term current use of insulin Prolapse of female pelvic organs Prepatellar bursitis Primary hypertension Generalized anxiety disorder Intermittent palpitations COPD (chronic obstructive pulmonary disease) History of COVID-19 COVID-19 vaccine series completed Depression, major, recurrent, in complete remission Herpes zoster Left shoulder tendinitis GERD (gastroesophageal reflux disease) Vitamin D deficiency Vitamin B12 deficiency Calcaneal spur of left foot Arthritis of first metatarsophalangeal (MTP) joint of left foot Deviated nasal septum History of pulmonary embolism History of thyroid cancer Essential hypertension Dyslipidemia Surgical History Status post open reduction and internal fixation (ORIF) of fracture (~09/16/23) Hx of left breast biopsy History of partial thyroidectomy History of surgery History of cervical spinal surgery History of shoulder surgery History of colonoscopy History of tubal ligation H/O spinal fusion Family History Father Alcoholism Mother HTN (hypertension) Hyperlipidemia CVD (cardiovascular disease) Sister Hyperlipidemia Alcoholism Substance use disorder Brother No problems noted. Sister No problems noted. Sister No problems noted. Sister No problems noted. Daughter No problems noted. Daughter No problems noted. Social History Household Members: Significant Other Household Members Other:: 2 Housing: Apartment Do you presently have visiting nurse or other home services: No Alcohol intake: never Patient Tobacco Use Status: Former Tobacco user Years Smoked: 4 yrs e-Cigarette/Vaping Use: Never Used Second Hand Smoke Exposure: No Advance Directives Date on File: 11/08/22 service: No Current occupational status: disabled Cognitive needs: No Hearing needs: No Vision needs: Yes Female Reproductive History Menstrual control method: none Date of last pap smear: 06/30/08 History of abnormal pap smear: Yes History of STI: No Date of Mammogram: 10/24/22 History of abnormal mammogram: Yes Review of Systems Const All systems reviewed & are unremarkable except as noted in HPI and below Reports as per HPI Eyes Reports no additional complaints ENT Reports no additional complaints Card Reports no additional complaints Resp Reports no additional complaints GI Reports as per HPI and Reports no additional complaints Reports as per HPI Musc Reports no additional complaints Skin/Breast Reports as per HPI Neuro Reports no additional complaints Psych Reports no additional complaints Endo Reports no additional complaints David/Lymph Reports no additional complaints Aller/Immun Reports no additional complaints Physical Exam Vital Signs: Last Vital Signs BP 134/86 03/08/24 09:22 BMI result Body Mass Index 37.2 Const General: cooperative, healthy appearing, no acute distress, well developed and alert Orientation/consciousness: patient oriented x3 HEENT Head: Yes normal to inspection Eyes General: appearance normal, both eyes and all related structures Neck Other: Scar Neck: Yes normal visual inspection Thyroid: Thyroid normal Chest Chest palpation & inspection: normal inspection of the chest and other (no puckering, dimpling, peau de orange, retraction, discharge, masses) Breast/axilla inspection: normal inspection of the breasts Breast/axilla palpation: normal palpation of the breasts Resp Effort & Inspection: normal respiratory effort GI Inspection: Yes normal to inspection and Yes obesity Palpation (GI): Soft to palpation Rectal Exam - Female: deferred General: Yes bladder normal to palpation External Female Exam: normal external appearance and normal appearance of the urethra Speculum Exam - Vagina: normal appearance of the vagina, normal palpation, normal vaginal discharge and vagina atrophic Speculum Exam - Cervix: normal appearance of the cervix, normal palpation and Other cervical findings present (Atrophic bled slightly with Pap) Bimanual exam- vagina & uterus: normal bimanual exam, normal palpation, bladder normal to palpation, normal palpation and non-tender Bimanual Exam- Adnexa, other: no masses Skin General skin exam: no rashes or lesions noted Rashes: no rashes Neuro General: patient oriented x3 Cognition (Neuro): normal cognition Extrem General: Yes normal to inspection Psych Attitude: cooperative Thought process: Normal thought process present Assessment & Plan Assessment & Plan (1) Encounter for well woman exam with routine gynecological exam: Code(s): Z01.419 - Encounter for gynecological examination (general) (routine) without abnormal findings Category: Medical Plan Discussed: Current recommendations for pap smears per ASCCP guidelines. Breast awareness, periodic self breast exams and yearly mammogram. Maintain a healthy lifestyle, well balanced diet including Calcium 1,200 mg and Vitamin D 600 IU daily, and routine exercise. Contact the office with any postmenopausal bleeding. Patient verbalizes understanding and agrees to the plan of care. She was given opportunity to ask questions and all questions were answered to the best of my ability. RTO in 1-2 year for annual project design engineer exam. This note is constructed using voice recognition software. While every effort has been made to ensure accuracy, farm machinery mechanic errors may have been included. Orders: Orders MM tomosynthesis screening BI Today Z12.31 - Encounter for screening mammogram for malignant neoplasm of breast Pap Smear Today Z01.419 - Encounter for gynecological examination (general) (routine) without abnormal findings Coding Level of Care Code New Pt Prev Care 40-64y(87481) Diagnoses Encounter for well woman exam with routine gynecological exam Z01.419
--- OUTSIDE RECORDS SUMMARY | 2024-03-08 09:26 | XMS_ITS | Patient Health Record ---
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 Name Role Phone Abdias QUIROZ, Flakita Bowens Primary Care Provider Un available Elena Mejia Unavailable [phone] ALLERGIES Allergen (clinical drug ingredient) Drug/Non Drug [...] confirmed Type II diabetes mellitus without complication (186032373) Problem Osteoarthritis of left ankle and foot (M19.072) Active confirmed [id number] PLAN OF TREATMENT Pending Test Test Name Order Date X ray : Foot, left 3V 07/07/2021 [id number] NAIL, 1-5 06/06/2016 [id number] Plate 05/23/2016 [id number] Plate 01/17/2017 [id number] 06/13/2017 28815- Debride <25 sq cm 07/11/2017 48311- Debride <25 sq cm 07/25/2017 56821- Debride <25 sq cm 07/21/2015 [id number] SKIN/TISSUE 06/27/2017 25951 I&D ABSCESS- SIMPLE,SINGLE 015 92103 I&D ABSCESS- SIMPLE,SINGLE 015 Insurance Providers Payer Name Payer Address Payer Phone Subscriber Number Group Number Insured Name Patient Relationship to Insured Coverage Start Date Coverage End Date Medicare National Govt Sv[employer] [address] [place] [phone] [id number] Ya Cameron Self - patient is the insured [facility] [address] [place] [address] [phone] [id number] aY Cameron Self - patient is the insured [...]
== END 2024-03-08 10:01 | disposition home or self-care (01) ==
LOC: HO.HWS 09:20
PROVIDERS: PCP Internal Medicine; Visit Provider Advanced Practice Midwife
DX: Z01.419 Encounter for gynecological examination (general) (routine) without abnormal findings (principal)
CPT/HCPCS: G0101; Q0091

== ENCOUNTER 2024-04-29 09:14 | Outpatient (REF) | payer MEDICARE, OTHER, SELFPAY ==
--- NOTE | ~2024-04-29 | XR_ITS ---
EXAMINATION: TIBIA FIBULA, LEFT CLINICAL INFORMATION: Fracture fixation follow-up COMPARISON: Radiographs 01/29/2024 TECHNIQUE: AP and lateral radiographs of the left tibia and fibula. FINDINGS: Plate and screw fracture fixation of the distal tibia and fibula appears intact. Fractures are in stable alignment with no minimal, if any, osseous bridging which could be better assessed with CT. Small heel spur. XR/XR tibia fibula LT 2V IMPRESSION: Distal tibia and fibular fractures in stable alignment with no minimal, if any, osseous bridging which could be better assessed with CT. No significant change. Electronically signed by: Cj Lnych MD 05/05/2024 04:02 PM EDT
== END 2024-04-29 09:15 | disposition home or self-care (01) ==
LOC: HO.HOSX 09:14
PROVIDERS: Visit Provider Orthopaedic Surgery
DX: S82.202K Unspecified fracture of shaft of left tibia, subsequent encounter for closed fracture with nonunion (principal); Z98.890 Other specified postprocedural states
CPT/HCPCS: 73590; 99212

== ENCOUNTER 2024-04-29 10:18 | Outpatient (AMB) | payer MEDICARE, OTHER, SELFPAY ==
--- NOTE | 2024-04-29 10:38 | MHC.OFFVIS ---
Vital Signs 04/29/24 10:39 Height 5 ft 2 in Weight 204 lb BMI 37.3 Intake Visit Reasons: OV - Left Tib/Fib ORIF 09/16/23 Intake Note: Ya is a 63 year old female who presents to the office today for a follow up of her left ankle s/p Left tib/fib ORIF 09/16/23. At her last visit she was instructed that she can begin WBAT without boot. Patient reports that she has discontinued the boot and is having soreness since she has transitioned to street shoes. Allergies Iodinated Contrast Media [IV CONTRAST] Adverse Reaction (Intermediate, Verified 04/29/24 10:42) Rash capsaicin Adverse Reaction (Verified 04/29/24 10:42) Rash perflutren [From Definity] Adverse Reaction (Verified 04/29/24 10:42) Back Pain HPI HPI OV - Left Tib/Fib ORIF 09/16/23: Details: Ya is now 7 months status post ORIF left tib-fib. She has been walking with street shoes and has soreness and swelling at the end of the day. She is not worse than she was prior in fact she is better and she has been very active but she is still bothered by discomfort. [facility] Medical History (Updated 04/30/24 @ 12:28 by Danilo Rodriguez MD) History of abnormal cervical Pap smear Anemia Type 2 diabetes mellitus without complication, without long-term current use of insulin Prolapse of female pelvic organs Prepatellar bursitis Primary hypertension Generalized anxiety disorder Intermittent palpitations COPD (chronic obstructive pulmonary disease) History of COVID-19 COVID-19 vaccine series completed Depression, major, recurrent, in complete remission Herpes zoster Left shoulder tendinitis GERD (gastroesophageal reflux disease) Vitamin D deficiency Vitamin B12 deficiency Calcaneal spur of left foot Arthritis of first metatarsophalangeal (MTP) joint of left foot Deviated nasal septum History of pulmonary embolism History of thyroid cancer Essential hypertension Dyslipidemia Surgical History (Updated 03/27/24 @ 11:10 by Barb Cotto MD) Status post open reduction and internal fixation (ORIF) of fracture (~09/16/23) Hx of left breast biopsy History of partial thyroidectomy History of surgery History of cervical spinal surgery History of shoulder surgery History of colonoscopy History of tubal ligation H/O spinal fusion Family History Father Alcoholism Mother HTN (hypertension) Hyperlipidemia CVD (cardiovascular disease) Sister Hyperlipidemia Alcoholism Substance use disorder Brother No problems noted. Sister No problems noted. Sister No problems noted. Sister No problems noted. Daughter No problems noted. Daughter No problems noted. Social History Household Members: Significant Other Household Members Other:: 2 Housing: Apartment Do you presently have visiting nurse or other home services: No Alcohol intake: never Patient Tobacco Use Status: Former Tobacco user Years Smoked: 4 yrs e-Cigarette/Vaping Use: Never Used Second Hand Smoke Exposure: No Advance Directives Date on File: 11/08/22 service: No Current occupational status: disabled Cognitive needs: No Hearing needs: No Vision needs: Yes Physical Exam Vital Signs: BMI result Body Mass Index 37.3 Extrem Other: Medial tibial tenderness to palpation. There is full range of motion of her ankle. She has mild soft tissue swelling circumferentially around the lower left leg. No calf tenderness. No redness or erythema. Results Reviewed Results Reviewed: I personally reviewed relevant radiographs. There is intact hardware with no changes in alignment compared to prior. 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 I ordered a bone stimulator and recommend she continue weight-bearing as tolerated. She will follow up to see me in 8 weeks. 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
[2024-04-29 10:39] VITALS: BMI 37.3
== END 2024-04-29 11:12 | disposition home or self-care (01) ==
PROVIDERS: PCP Internal Medicine; Visit Provider Orthopaedic Surgery
DX: S82.202G Unspecified fracture of shaft of left tibia, subsequent encounter for closed fracture with delayed healing (principal); E11.9 Type 2 diabetes mellitus without complications
CPT/HCPCS: 99213

== ENCOUNTER 2024-05-02 08:35 | Outpatient (AMB) | payer MEDICARE, OTHER, SELFPAY ==
--- NOTE | 2024-05-02 08:36 | AM.OFFWIN_ITS ---
Intake Vital Signs 05/02/24 08:38 Height 5 ft 2 in Weight 205 lb BMI 37.5 BP 124/78 Blood Pressure Location Lt brachial Position Sitting Pulse 84 Pulse Source Pulse Oximeter Pulse Oximetry (%) 98 Oxygen Delivery Method Room Air Intake Visit Reasons: EP-LT swollen gland Intake Note: Patient here for swollen gland which has been present for about 3 days. Patient Tobacco Use Status: Former Tobacco user Allergies Iodinated Contrast Media [IV CONTRAST] Adverse Reaction (Intermediate, Verified 05/02/24 08:39) Rash capsaicin Adverse Reaction (Verified 05/02/24 08:39) Rash perflutren [From Definity] Adverse Reaction (Verified 05/02/24 08:39) Back Pain Do you need a note to return to daycare/school/sports/work: No HPI HPI Comments History of Present Illness Details Patient is a 64-year-old female complaining of 3 days of a swollen neck on the left side. She states it is getting worse and more painful. It is getting difficult to swallow and she feels like there is something stuck in her neck. She denies any fevers. She states she does not have any teeth but she denies any gum pain jaw pain or ear pain. COUNTS INCLUDE 234 BEDS AT THE [facility] Medical History (Updated 05/02/24 @ 09:01 by Marzena Ross PA-C) History of abnormal cervical Pap smear Anemia Type 2 diabetes mellitus without complication, without long-term current use of insulin Prolapse of female pelvic organs Prepatellar bursitis Primary hypertension Generalized anxiety disorder Intermittent palpitations COPD (chronic obstructive pulmonary disease) History of COVID-19 COVID-19 vaccine series completed Depression, major, recurrent, in complete remission Herpes zoster Left shoulder tendinitis GERD (gastroesophageal reflux disease) Vitamin D deficiency Vitamin B12 deficiency Calcaneal spur of left foot Arthritis of first metatarsophalangeal (MTP) joint of left foot Deviated nasal septum History of pulmonary embolism History of thyroid cancer Essential hypertension Dyslipidemia Surgical History (Updated 03/27/24 @ 11:10 by Barb Cotto MD) Status post open reduction and internal fixation (ORIF) of fracture (~09/16/23) Hx of left breast biopsy History of partial thyroidectomy History of surgery History of cervical spinal surgery History of shoulder surgery History of colonoscopy History of tubal ligation H/O spinal fusion Family History Father Alcoholism Mother HTN (hypertension) Hyperlipidemia CVD (cardiovascular disease) Sister Hyperlipidemia Alcoholism Substance use disorder Brother No problems noted. Sister No problems noted. Sister No problems noted. Sister No problems noted. Daughter No problems noted. Daughter No problems noted. Social History Household Members: Significant Other Household Members Other:: 2 Housing: Apartment Do you presently have visiting nurse or other home services: No Alcohol intake: never Patient Tobacco Use Status: Former Tobacco user Years Smoked: 4 yrs e-Cigarette/Vaping Use: Never Used Second Hand Smoke Exposure: No Advance Directives Date on File: 11/08/22 service: No Current occupational status: disabled Cognitive needs: No Hearing needs: No Vision needs: Yes Review of Systems Const All systems reviewed & are unremarkable except as noted in HPI and below Physical Exam Vital Signs: Last Vital Signs Pulse 84 05/02/24 08:38 BP 124/78 05/02/24 08:38 Pulse Ox 98 05/02/24 08:38 Oxygen Delivery Method Room Air 05/02/24 08:38 BMI result Body Mass Index 37.5 Const General: cooperative, healthy appearing, comfortable, no acute distress and well developed Orientation/consciousness: patient oriented x3 Limitations: no limitations HEENT Head: Yes normal to inspection Ears: hearing grossly normal bilaterally General nose exam: Normal external nose present Face and sinus: Yes normal facial exam Mouth: Normal oral and palatal mucosa present, lip normal, tongue normal, oropharynx normal, no audible dysphonia, no drooling, no muffled voice and no trismus Teeth and gingiva: edentulous Throat: Yes posterior oropharynx normal Eyes General: appearance normal, both eyes and all related structures Neck Neck: Yes normal visual inspection, Yes full ROM, Yes trachea midline, Yes supple, Yes anterior neck swelling (left side) and Yes tender (left side of neck) Resp Other: Patient breathing easily Effort & Inspection: normal respiratory effort and able to speak in complete sentences Skin General skin exam: no rashes or lesions noted Neuro General: patient oriented x3 Extrem General: Yes normal to inspection Assessment & Plan Assessment & Plan (1) Neck swelling: Code(s): R22.1 - Localized swelling, mass and lump, neck Plan: Patient able to handle her secretions and airway is patent, vital signs are stable, we will allow patient to drive home pick up driver her and then go straight to the emergency room for further workup, rule out Flip's. Called [facility] ED with expect Plan see above Coding Level of Care Code Est Pt Level 5 (15176) Diagnoses Neck swelling R22.1
[2024-05-02 08:38] VITALS: BP 124/78; PULSE 84; O2SAT 98; BMI 37.5
--- OUTSIDE RECORDS SUMMARY | 2024-05-04 23:36 | XMS_ITS | Patient Health Record ---
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 confirmed [id number] PLAN OF TREATMENT Pending Test Test Name Order Date X ray : Foot, left 3V 07/07/2021 [id number] NAIL, 1-5 06/06/2016 [id number] Plate 05/23/2016 [id number] Plate 01/17/2017 [id number] 06/13/2017 [id number]- Debride <25 sq cm 07/11/2017 [id number]- Debride <25 sq cm 07/25/2017 [id number]- Debride <25 sq cm 07/21/2015 [id number] SKIN/TISSUE 06/27/2017 [id number] I&D ABSCESS- SIMPLE,SINGLE 015 [id number] I&D ABSCESS- SIMPLE,SINGLE 015 Insurance Providers Payer Name Payer Address Payer Phone Subscriber Number Group Number Insured Name Patient Relationship to Insured Coverage Start Date Coverage End Date Medicare [employer] [address] [place] [phone] [id number] Ya Cameron Self - patient is the insured [facility] [address] [place] [address] [id number] Ya Cameron Self - patient is the [...]
== END 2024-05-02 09:10 | disposition home or self-care (01) ==
PROVIDERS: PCP Internal Medicine; Visit Provider Physician Assistant
DX: R22.1 Localized swelling, mass and lump, neck (principal)
CPT/HCPCS: 99214

== ENCOUNTER 2024-05-02 09:31 | Emergency (ER) | payer MEDICARE, OTHER, SELFPAY ==
--- NOTE | ~2024-05-02 | CT_ITS ---
EXAMINATION: CT SOFT TISSUE NECK WITH CONTRAST CLINICAL INFORMATION: Left-sided neck swelling and difficulty swallowing. COMPARISON: Head CT dated 10/22/2020. TECHNIQUE: Following intravenous administration of 100 mL of Omnipaque 350 contrast, helical imaging was performed in the axial plane with generation of coronal and sagittal reformatted images. This CT examination was performed using dose optimization techniques as appropriate, variously including the following: *Automated exposure control *Adjustment of mA and/or kV according to patient size (this includes techniques or standardized protocols for targeted exams where dose is matched to indication/reason for exam; i.e. extremities or head) *Use of iterative reconstruction technique DLP: 616 mGy-cm FINDINGS: There are moderate inflammatory changes and fluid tracking in the left submandibular triangle with heterogeneous enhancement and asymmetric enlargement of the left submandibular gland. No drainable fluid collection is seen. Mild left-sided level IB and IIA adenopathy is also evident. No sialolith is seen within the gland or in [place]'s duct. Mild inflammatory changes extend into the subcutaneous fat of the submental space. There is additional abnormal thickening and presumed phlegmonous changes involving the dorsal aspect of the mylohyoid sling on the left side as well. Mild infiltration of the left parapharyngeal fat space is evident. Mild submucosal edema noted in the left oropharyngeal wall as well. The airways normally maintained. No retropharyngeal fluid collection identified. Aside from mild edema in the epiglottis along the glossoepiglottic fold and left pharyngoepiglottic fold, the remainder of the larynx is normal. The left vallecula is effaced due to surrounding mucosal edematous changes. Internal jugular triangle lymph nodes are normal. The carotid sheath vasculature opacifies normally with mild soft tissue inflammatory changes visible on the left side. The right thyroid lobe is barely discernible. The left thyroid lobe is hypertrophic and multinodular. The imaged mediastinum is unremarkable with exception of mild atherosclerotic wall calcifications along the aortic arch. The visualized axillae appear normal. Mild dependent subsegmental atelectatic changes present in the lungs. Patient is status post anterior cervical fusion with hardware instrumentation at the C4-C5 level. Posterior fusion hardware in place at the C3-C4 level. Moderate spondylosis visible at the C6-C7 level. There are osseous fusion changes as well at the C5-C6 level across the interbody space. The craniovertebral junction appears normal. There is significant mucosal and heterogeneous soft tissue disease in the right maxillary sinus with multiple central calcifications seen; findings were also present on prior imaging from 10/2020. The remaining paranasal sinuses are clear. The orbits are normal. The imaged portions of the brain demonstrate no acute abnormality. CT/CT soft tissue neck w IV con IMPRESSION: Imaging findings of what is suspected to represent acute left submandibular sialoadenitis. No obstructing sialolith identified. No drainable fluid collection. Additional mild left-sided reactive cervical adenopathy. Contiguous mild submucosal edematous changes affect the left oropharyngeal wall and the left aspect of the supraglottic larynx without airway compromise. Heterogeneous multinodular hypertrophic left thyroid lobe. Multilevel cervical spondylosis postsurgical fusion changes. Heterogeneous lobulated soft tissue nearly opacifying the right maxillary sinus with chronic sclerotic wall thickening. Although findings may be due to chronic inflammatory disease, the possibility of an underlying mycetoma cannot be ruled out. Although findings appear grossly stable and chronic, consider follow-up ENT consultation to guide further management. Electronically signed by: Edwin Roberts MD 05/02/2024 11:37 AM EDT
[2024-05-02 09:40] VITALS: BP 153/82; PULSE 98; RESP 18; TEMP 36.2; O2SAT 95; BMI 37.5
--- NOTE | 2024-05-02 09:52 | ED.GENADULT ---
HPI - General Adult General Chief complaint: General Medical Stated complaint: bump l face Time Seen by Provider: 05/02/24 09:47 Source: patient Mode of arrival: ambulatory Limitations: no limitations History of Present Illness ED Provider: Heath Garzon PA-C HPI narrative: 64-year-old female presents to the ER for evaluation of left neck swelling for the last 3.5 days. She was sent in from the walk-in clinic. She reports the pain and swelling is in the left side of her neck below her jaw. It is worse with opening her mouth and eating. She states she has had to eat soup because eating hard food is more difficult and painful. She also has difficulty swallowing her pills. She does not have any dentition, denies any recent dental work. She denies any fever or chills. She denies any other swollen areas on her body, no other swollen lymph nodes. No recent rash. MD complaint: Left-sided neck swelling Onset (ago): day(s) (3) Location: neck Radiation: non-radiation Severity: moderate Severity scale (1-10): 7 Quality: aching, dull and constant Pain Consistency: constant Relieving factors: rest Exacerbating factors: eating Associated symptoms: headaches and weakness Treatments prior to arrival: none Related Data Home Medications ?Medication ?Instructions ?Recorded ?Confirmed cetirizine 10 mg tablet 10 mg PO DAILY 02/13/23 03/27/24 tolterodine 4 mg capsule,extended 4 mg PO DAILY 05/23/23 03/27/24 release 24 hr Previous Rx's ?Medication ?Instructions ?Recorded metformin 500 mg tablet 500 mg PO DAILY #90 tabs 11/18/22 buspirone 5 mg tablet 5 mg PO TID #90 tabs 07/10/23 trazodone 100 mg tablet 100 mg PO BEDTIME #30 caps 11/16/23 omeprazole 40 mg capsule,delayed 40 mg PO QPM Heartburn symptoms 12/15/23 release #90 caps atorvastatin 40 mg tablet 40 mg PO BEDTIME #90 tabs 01/02/24 fluoxetine 20 mg capsule 40 mg (2 x 20 mg) PO DAILY #60 caps 01/10/24 amlodipine 5 mg tablet 5 mg PO DAILY #90 tabs 03/08/24 apixaban 5 mg tablet (Eliquis) 5 mg PO BID #60 tabs 03/27/24 cyanocobalamin (vitamin B-12) 1,000 mcg PO DAILY #90 tabs 03/27/24 1,000 mcg tablet (Vitamin B-12) Allergies Allergy/AdvReac Type Severity Reaction Status Date / Time Iodinated Contrast Media AdvReac Intermediate Rash Verified 05/02/24 09:42 [IV CONTRAST] capsaicin AdvReac Rash Verified 05/02/24 09:42 perflutren [From Definity] AdvReac Back Pain Verified 05/02/24 09:42 Review of Systems Review of Systems: Yes all other systems are reviewed and are negative [facility] Past Medical History Medical History (Updated 05/02/24 @ 12:02 by ELIAS García) History of abnormal cervical Pap smear Anemia Type 2 diabetes mellitus without complication, without long-term current use of insulin Prolapse of female pelvic organs Prepatellar bursitis Primary hypertension Generalized anxiety disorder Intermittent palpitations COPD (chronic obstructive pulmonary disease) History of COVID-19 COVID-19 vaccine series completed Depression, major, recurrent, in complete remission Herpes zoster Left shoulder tendinitis GERD (gastroesophageal reflux disease) Vitamin D deficiency Vitamin B12 deficiency Calcaneal spur of left foot Arthritis of first metatarsophalangeal (MTP) joint of left foot Deviated nasal septum History of pulmonary embolism History of thyroid cancer Essential hypertension Dyslipidemia Surgical History (Updated 03/27/24 @ 11:10 by Barb Cotto MD) Status post open reduction and internal fixation (ORIF) of fracture (~09/16/23) Hx of left breast biopsy History of partial thyroidectomy History of surgery History of cervical spinal surgery History of shoulder surgery History of colonoscopy History of tubal ligation H/O spinal fusion Family History Family History Father Alcoholism Mother HTN (hypertension) Hyperlipidemia CVD (cardiovascular disease) Sister Hyperlipidemia Alcoholism Substance use disorder Brother No problems noted. Sister No problems noted. Sister No problems noted. Sister No problems noted. Daughter No problems noted. Daughter No problems noted. Social History Social History Household Members: Significant Other Household Members Other:: 2 Housing: Apartment Do you presently have visiting nurse or other home services: No Alcohol intake: never Patient Tobacco Use Status: Former Tobacco user Years Smoked: 4 yrs e-Cigarette/Vaping Use: Never Used Second Hand Smoke Exposure: No Advance Directives: Yes Advance Directives on File: Yes Advance Directives Date on File: 11/08/22 service: No Current occupational status: disabled Cognitive needs: No Hearing needs: No Vision needs: Yes Physical Exam ED Vital Signs: Vital Signs - 24 hr 05/02/24 09:40 05/02/24 09:57 05/02/24 11:43 Temperature 97.2 F 97.1 F 98.4 F Pulse Rate 98 93 86 Respiratory Rate 18 14 18 Blood Pressure 153/82 H 139/72 140/84 H Pulse Oximetry 95 95 92 Oxygen Delivery Method Room Air Room Air Room Air BMI result Body Mass Index 37.5 Appearance: Alert. Oriented X3. No acute distress. Head: normocephalic, atraumatic. Eyes: Pupils equal, round and reactive to light. ENT: Pharynx normal. No tonsillar swelling or exudate. no dentition. pain with opening the mouth Neck: left sideded neck swelling in the submandibular area with tender approx 4-5 cm mass palpated without overlying erythema or skin changes. normal voice. CVS: Normal heart rate and rhythm. Pulses normal. Respiratory: No respiratory distress. Breath sounds normal. Abdomen: Obese, Soft and nontender. +BS x4 Skin: Skin warm and dry. Normal skin color. Normal skin turgor. No rashes. Extremities: No lower extremity edema. No joint swelling. Neuro/psych: Oriented X 3. No motor deficit. No sensory deficit. CN II-XII intact. Normal speech and cognition. Medications Administered Discontinued Medications Generic Name Dose Route Start Last Admin Trade Name Arvind PRN Reason Stop Dose Admin Diphenhydramine HCl 25 mg 05/02/24 09:56 05/02/24 10:22 Diphenhydramine Hcl 50 Mg/Ml Vial IVPUSH 05/02/24 09:57 25 mg ONCE ONE Administration Iohexol 100 ml 05/02/24 11:04 05/02/24 11:04 Iohexol 350 Mg/Ml 100 Ml Infus..Btl IV 05/02/24 11:05 60 ml ONCE ONE Administration Methylprednisolone Sodium Succinate 40 mg 05/02/24 09:56 05/02/24 10:22 Methylprednisolone Sod Succ 40 Mg/Ml Vial IVPUSH 05/02/24 09:57 40 mg ONCE ONE Administration Medical Decision Making Medical Decision Making [facility] Narrative: 64-year-old diabetic female presents to the ER for evaluation of 3 and half days of left-sided neck swelling that has been worsening. She reports difficulty swallowing and pain with swallowing. She comes from the walk-in clinic. Exam is consistent with a 4-5 cm mass in the submandibular area on the left side. CT scan of the neck was ordered, she has an allergy to CT contrast dye but does well when she is premedicated. Benadryl and Solu-Medrol have been ordered. Patient tolerated CT scan with contrast without any evidence of allergic reaction. Her lab work is unremarkable. CT scan is showing acute left-sided submandibular sialoadenitis without any obstructing stone seen. No evidence of drainable fluid collection or abscess. She has some mild reactive cervical lymphadenopathy. Also in her CT scan were chronic findings of right maxillary sinus soft tissue changes with sclerotic wall thickening. Possibility of a underlying mycetoma can not be ruled out. Patient has an ear nose and throat doctor that she follows with. Patient was given warm compress on her left side of her neck along with sour candies. She was counseled on management of acute sialoadenitis. There does not appear to be any evidence of infection. She does not need antibiotics. She is on Eliquis, contraindication for NSAIDs. Recommend Tylenol 1000 mg every 6-8 hours around the clock. Recommend outpatient follow-up with PCP and ear nose and throat provider. Stable for discharge home. Differential Diagnosis Differential Diagnoses: The differential diagnosis associated with the presentation includes Parotiditis, sialoadenitis, mumps, lymphadenopathy, mononucleosis, benign cyst, low clinical suspicion for Flip's angina Admission/Observation Consideration of admission/observation: Escalation of care including admission/observation considered Lab Data [facility] Lab Attestation statement: I reviewed the patient's lab results. No leukocytosis, no anemia, no major metabolic derangement 05/02/24 10:08 05/02/24 10:08 Labs: Lab Results 05/02/24 Range/Units 10:08 WBC 9.8 (4.8-10.8) X10*3/uL RBC 4.29 (4.20-5.50) X10*6/uL Hgb 12.4 (12.0-16.0) g/dl Hct 37.4 (37.0-47.0) % MCV 87.2 (80.0-98.0) fL MCH 28.9 (27.0-33.0) pg MCHC 33.2 (31.0-35.0) g/dl RDW 13.9 (11.0-16.0) % Plt Count 249 (160-400) X10*3/uL MPV 9.3 L (9.4-12.3) fL Immature Gran % (Auto) 0.5 H (0.0-0.4) % Neut % (Auto) 73.4 H (45-73) % Lymph % (Auto) 18.6 L (20-40) % [place] % (Auto) 6.9 (2-11) % Eos % (Auto) 0.3 (0-4) % Baso % (Auto) 0.3 (0-2) % Lymph # (Auto) 1.8 (1.2-4.9) X10*3/uL [place] # (Auto) 0.7 (0.1-1.2) X10*3/uL Eos # (Auto) 0.0 (0.0-0.4) X10*3/uL Baso # (Auto) 0.0 (0.0-0.2) X10*3/uL Abs Immat Gran (auto) 0.05 H (0.00-0.03) X10*3/uL Absolute Neuts (auto) 7.2 (2.0-8.3) x10*3/uL Absolute Nucleated RBC 0.000 (0.0-0.012) X10*3/uL Nucleated RBC % (auto) 0.0 (0.0-0.2) /100WBC Sodium 139 (135-145) mmol/L Potassium 3.7 (3.3-5.1) mmol/L Chloride 105 (96-108) mmol/L Carbon Dioxide 27 (22-29) mmol/L Anion Gap 11 L (12-20) BUN 10 (9-16) mg/dL Creatinine 0.83 (0.5-1.4) mg/dL Estim Creat Clear Calc 73.6 Estimated GFR > 60 Random Glucose 142 H (60-115) mg/dL Calcium 9.5 (8.4-10.2) mg/dL Magnesium 1.6 (1.6-2.6) mg/dL Total Bilirubin 1.4 H (0.0-1.0) mg/dL Direct Bilirubin 0.5 (0.0-0.5) mg/dL AST 19 (5-31) U/L ALT 30 (0-31) U/L Alkaline Phosphatase 87 (39-117) U/L Total Protein 7.5 (6.5-8.0) g/dL Albumin 4.1 (3.5-5.0) g/dL Independent Interpretation I performed an independent interpretation of an: CT Scan Interpretation: No evidence of drainable abscess or fluid collection, agrees Radiology read airway is patent. Radiology Impression Discussion of test interpretation with radiology: I have reviewed the radiologist's reading. Radiologist Impression: CLINICAL INFORMATION: Left-sided neck swelling and difficulty swallowing. COMPARISON: Head CT dated 10/22/2020. FINDINGS: There are moderate inflammatory changes and fluid tracking in the left submandibular triangle with heterogeneous enhancement and asymmetric enlargement of the left submandibular gland. No drainable fluid collection is seen. Mild left-sided level IB and IIA adenopathy is also evident. No sialolith is seen within the gland or in [place]'s duct. Mild inflammatory changes extend into the subcutaneous fat of the submental space. There is additional abnormal thickening and presumed phlegmonous changes involving the dorsal aspect of the mylohyoid sling on the left side as well. Mild infiltration of the left parapharyngeal fat space is evident. Mild submucosal edema noted in the left oropharyngeal wall as well. The airways normally maintained. No retropharyngeal fluid collection identified. Aside from mild edema in the epiglottis along the glossoepiglottic fold and left pharyngoepiglottic fold, the remainder of the larynx is normal. The left vallecula is effaced due to surrounding mucosal edematous changes. Internal jugular triangle lymph nodes are normal. The carotid sheath vasculature opacifies normally with mild soft tissue inflammatory changes visible on the left side. The right thyroid lobe is barely discernible. The left thyroid lobe is hypertrophic and multinodular. The imaged mediastinum is unremarkable with exception of mild atherosclerotic wall calcifications along the aortic arch. The visualized axillae appear normal. Mild dependent subsegmental atelectatic changes present in the lungs. Patient is status post anterior cervical fusion with hardware instrumentation at the C4-C5 level. Posterior fusion hardware in place at the C3-C4 level. Moderate spondylosis visible at the C6-C7 level. There are osseous fusion changes as well at the C5-C6 level across the interbody space. The craniovertebral junction appears normal. There is significant mucosal and heterogeneous soft tissue disease in the right maxillary sinus with multiple central calcifications seen; findings were also present on prior imaging from 10/2020. The remaining paranasal sinuses are clear. The orbits are normal. The imaged portions of the brain demonstrate no acute abnormality. CT/CT soft tissue neck w IV con IMPRESSION: Imaging findings of what is suspected to represent acute left submandibular sialoadenitis. No obstructing sialolith identified. No drainable fluid collection. Additional mild left-sided reactive cervical adenopathy. Contiguous mild submucosal edematous changes affect the left oropharyngeal wall and the left aspect of the supraglottic larynx without airway compromise. Heterogeneous multinodular hypertrophic left thyroid lobe. Multilevel cervical spondylosis postsurgical fusion changes. Heterogeneous lobulated soft tissue nearly opacifying the right maxillary sinus with chronic sclerotic wall thickening. Although findings may be due to chronic inflammatory disease, the possibility of an underlying mycetoma cannot be ruled out. Although findings appear grossly stable and chronic, consider follow-up ENT consultation to guide further management. External Record Review External record reviewed: Office record, Outpatient record, Prior outpatient labs and Prior outpatient radiology Prescription Management I considered prescription management with: Pain Medication and Antibiotic Chronic Conditions Patient?s care impacted by: Diabetes Critical Care Time Critical Care Time Critical Care Time: No Discharge Plan Discharge Clinical Impression: Sialadenitis Patient Disposition: Home, Self-Care Instructions: Sialoadenitis (ED) Additional Instructions: CT scan today showed swelling of your salivary gland. There is no evidence of infection. Treatment is pain control, a sour candies or adrian to increase salivary flow and production, and gentle massage with warm compresses. Recommend 1000 mg of Tylenol every 6-8 hours for pain. Follow-up with your primary care doctor. Also recommend following up with your your nose and throat provider for further evaluation of your right maxillary sinus changes that have been present on your CT scan for the last few years. If you develop new or worsening symptoms call 911 or come back to the ER for further evaluation. EXAMINATION: CT SOFT TISSUE NECK WITH CONTRAST CLINICAL INFORMATION: Left-sided neck swelling and difficulty swallowing. COMPARISON: Head CT dated 10/22/2020. FINDINGS: There are moderate inflammatory changes and fluid tracking in the left submandibular triangle with heterogeneous enhancement and asymmetric enlargement of the left submandibular gland. No drainable fluid collection is seen. Mild left-sided level IB and IIA adenopathy is also evident. No sialolith is seen within the gland or in [place]'s duct. Mild inflammatory changes extend into the subcutaneous fat of the submental space. There is additional abnormal thickening and presumed phlegmonous changes involving the dorsal aspect of the mylohyoid sling on the left side as well. Mild infiltration of the left parapharyngeal fat space is evident. Mild submucosal edema noted in the left oropharyngeal wall as well. The airways normally maintained. No retropharyngeal fluid collection identified. Aside from mild edema in the epiglottis along the glossoepiglottic fold and left pharyngoepiglottic fold, the remainder of the larynx is normal. The left vallecula is effaced due to surrounding mucosal edematous changes. Internal jugular triangle lymph nodes are normal. The carotid sheath vasculature opacifies normally with mild soft tissue inflammatory changes visible on the left side. The right thyroid lobe is barely discernible. The left thyroid lobe is hypertrophic and multinodular. The imaged mediastinum is unremarkable with exception of mild atherosclerotic wall calcifications along the aortic arch. The visualized axillae appear normal. Mild dependent subsegmental atelectatic changes present in the lungs. Patient is status post anterior cervical fusion with hardware instrumentation at the C4-C5 level. Posterior fusion hardware in place at the C3-C4 level. Moderate spondylosis visible at the C6-C7 level. There are osseous fusion changes as well at the C5-C6 level across the interbody space. The craniovertebral junction appears normal. There is significant mucosal and heterogeneous soft tissue disease in the right maxillary sinus with multiple central calcifications seen; findings were also present on prior imaging from 10/2020. The remaining paranasal sinuses are clear. The orbits are normal. The imaged portions of the brain demonstrate no acute abnormality. CT/CT soft tissue neck w IV con IMPRESSION: Imaging findings of what is suspected to represent acute left submandibular sialoadenitis. No obstructing sialolith identified. No drainable fluid collection. Additional mild left-sided reactive cervical adenopathy. Contiguous mild submucosal edematous changes affect the left oropharyngeal wall and the left aspect of the supraglottic larynx without airway compromise. Heterogeneous multinodular hypertrophic left thyroid lobe. Multilevel cervical spondylosis postsurgical fusion changes. Heterogeneous lobulated soft tissue nearly opacifying the right maxillary sinus with chronic sclerotic wall thickening. Although findings may be due to chronic inflammatory disease, the possibility of an underlying mycetoma cannot be ruled out. Although findings appear grossly stable and chronic, consider follow-up ENT consultation to guide further management. Prescriptions: No Action metformin 500 mg tablet 500 mg PO DAILY Qty: 90 1RF buspirone 5 mg tablet 5 mg PO TID Qty: 90 5RF trazodone 100 mg tablet 100 mg PO BEDTIME Qty: 30 5RF omeprazole 40 mg capsule,delayed release(DR/EC) 40 mg PO QPM Qty: 90 1RF atorvastatin 40 mg tablet 40 mg PO BEDTIME Qty: 90 1RF fluoxetine 20 mg capsule 40 mg PO DAILY Qty: 60 5RF amlodipine 5 mg tablet 5 mg PO DAILY Qty: 90 1RF Eliquis 5 mg tablet 5 mg PO BID Qty: 60 5RF cyanocobalamin (vitamin B-12) [Vitamin B-12] 1,000 mcg Tablet 1,000 mcg PO DAILY Qty: 90 3RF cetirizine 10 mg tablet 10 mg PO DAILY tolterodine 4 mg capsule,extended release 24hr 4 mg PO DAILY Print Language: Mauritanian
[2024-05-02 09:57] VITALS: BP 139/72; PULSE 93; RESP 14; TEMP 36.2; O2SAT 95
[2024-05-02 10:18] LABS: MANUAL DIFF FLAG NO
[2024-05-02 10:21] LABS: Basophils Percent Auto 0.3 % (0-2); Eosinophils Percent Auto 0.3 % (0-4); Hematocrit 37.4 % (37.0-47.0); Hemoglobin 12.4 g/dl (12.0-16.0); Imm Gran Abs Auto 0.05 X10*3/uL (0.00-0.03); Imm Gran Pct Auto 0.5 % (0.0-0.4); Lymphocytes Absolute Auto 1.8 X10*3/uL (1.2-4.9); Lymphocytes Percent Auto 18.6 % (20-40); Mean Corpuscular HGB Conc 33.2 g/dl (31.0-35.0); Mean Corpuscular Hemoglobin 28.9 pg (27.0-33.0); Mean Corpuscular Volume 87.2 fL (80.0-98.0); Mean Platelet Volume 9.3 fL (9.4-12.3); Monocytes Absolute Auto 0.7 X10*3/uL (0.1-1.2); Monocytes Percent Auto 6.9 % (2-11); Neutrophils Absolute Auto 7.2 x10*3/uL (2.0-8.3); Neutrophils Percent Auto 73.4 % (45-73); Platelet Count 249 X10*3/uL (160-400); Red Blood Count 4.29 X10*6/uL (4.20-5.50); Red Cell Distribution Width 13.9 % (11.0-16.0); White Blood Count 9.8 X10*3/uL (4.8-10.8)
[2024-05-02] MEDS: methylPREDNISolone Sod Succ 40 MG/ML VIAL IVPUSH (10:22)
[2024-05-02] MEDS: diphenhydrAMINE HCL 50 MG/ML VIAL 25 MG IVPUSH (10:22)
[2024-05-02 10:37] LABS: Alanine Aminotransferase 30 U/L (0-31); Albumin Level 4.1 g/dL (3.5-5.0); Alkaline Phosphatase 87 U/L (39-117); Anion Gap 11 (12-20); Aspartate Amino Transferase 19 U/L (5-31); Bilirubin Direct 0.5 mg/dL (0.0-0.5); Bilirubin Total 1.4 mg/dL (0.0-1.0); Blood Urea Nitrogen 10 mg/dL (9-16); Calcium 9.5 mg/dL (8.4-10.2); Carbon Dioxide 27 mmol/L (22-29); Chloride 105 mmol/L (96-108); Creatinine Clr Calc Pharmacy 73.6; Estimated Glomerular Filt Rate > 60; Glucose Random 142 mg/dL (60-115); Magnesium 1.6 mg/dL (1.6-2.6); Potassium 3.7 mmol/L (3.3-5.1); Sodium 139 mmol/L (135-145); Total Protein 7.5 g/dL (6.5-8.0)
[2024-05-02] MEDS: iohexoL 350 MG/ML 100 ML INFUS..BTL IV (11:04)
[2024-05-02 11:43] VITALS: BP 140/84; PULSE 86; RESP 18; TEMP 36.9; O2SAT 92
[2024-05-02 12:17] VITALS: BP 140/84; PULSE 86; RESP 18; TEMP 36.9; O2SAT 92
== END 2024-05-02 12:17 | disposition home or self-care (01) ==
PROVIDERS: Physician Assistant; Emergency Provider Emergency Medicine; PCP Internal Medicine
DX: K11.21 Acute sialoadenitis (principal); E11.9 Type 2 diabetes mellitus without complications; I10 Essential (primary) hypertension; Z87.891 Personal history of nicotine dependence
CPT/HCPCS: 36415; 70491; 80048; 80076; 83735; 85025; 96374; 96375; 99283; 99284; J1200; J2919; Q9967

== ENCOUNTER 2024-06-03 08:54 | Outpatient (AMB) | payer MEDICARE, OTHER, SELFPAY ==
--- NOTE | 2024-06-03 08:56 | A.OFFPC_ITS ---
Vital Signs 06/03/24 09:12 Height 5 ft 2 in Weight 206 lb BMI 37.7 BP 135/80 Blood Pressure Location Rt brachial Position Sitting Pulse 87 Pulse Source Pulse Oximeter Pulse Oximetry (%) 96 Oxygen Delivery Method Room Air Intake Visit Reasons: PE/secondary covers - see comments Intake Note: Pt is here today for her PE, mammogram 10/24/22, colonoscopy 01/12/17 Allergies Iodinated Contrast Media [IV CONTRAST] Adverse Reaction (Intermediate, Verified 06/03/24 09:47) Rash capsaicin Adverse Reaction (Verified 06/03/24 09:47) Rash perflutren [From Definity] Adverse Reaction (Verified 06/03/24 09:47) Back Pain Medication List - Last Reconciled 06/03/24 by Flakita Calero MD amlodipine 5 mg PO DAILY apixaban (Eliquis) 5 mg PO BID atorvastatin 40 mg PO BEDTIME buspirone 5 mg PO BID cetirizine 10 mg PO DAILY cyanocobalamin (vitamin B-12) (Vitamin B-12) 1,000 mcg PO DAILY fluoxetine 40 mg (2 x 20 mg) PO DAILY metformin 500 mg PO DAILY omeprazole 40 mg PO QPM tolterodine ER 4 mg PO DAILY trazodone 100 mg PO BEDTIME Tobacco use date assessed: 02/14/24 Dental Screening Dental Screen Date: 06/03/24 Did you have a dental visit in the last 12 months?: Yes Did you have a dental problem in the last 6 months where you did not have access to dental care?: No Was dental information given to patient?: Patient has dentist HPI HPI Comments History of Present Illness Details 64-year-old lady with history of spontan eous bilateral pulmonary emboli currently on Eliquis, diabetes mellitus , hyperlipidemia, , hypertension , generalized anxiety disorder. here for her physical exam. She is up-to-date with her screening colonoscopy done [place] [address] Posadas , due for recheck in 2026. She however is overdue for a screening mammogram and has not yet had a bone density scan. She sees [facility] for her routine Pap and pelvic exam. She does not want to get COVID vaccines anymore, due for flu vaccine and received her 1st dose of shingles vaccine last week. She fracturedleft fibula, s/p ORIF done 09/[address] Rodriguez, but there is nonunion of the tibial fracture and patient is waiting for a bone stimulator to be approved by her insurance. Complains pain over area, takes Tylenol 500 mg , 3 tablets in the morning and 3 tablets at night which affords only temporary relief. She has fasting labs ordered, which she has not yet done. 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 History of abnormal cervical Pap smear Anemia Type 2 diabetes mellitus without complication, without long-term current use of insulin Prolapse of female pelvic organs Prepatellar bursitis Primary hypertension Generalized anxiety disorder COPD (chronic obstructive pulmonary disease) History of COVID-19 Depression, major, recurrent, in complete remission Herpes zoster Left shoulder tendinitis GERD (gastroesophageal reflux disease) Calcaneal spur of left foot Arthritis of first metatarsophalangeal (MTP) joint of left foot Deviated nasal septum History of pulmonary embolism History of thyroid cancer Essential hypertension Dyslipidemia Surgical History (Updated 06/03/24 @ 10:24 by Flakita Calero MD) History of fusion of cervical spine Status post open reduction and internal fixation (ORIF) of fracture (~09/16/23) Hx of left breast biopsy History of partial thyroidectomy History of surgery History of cervical spinal surgery History of shoulder surgery History of colonoscopy History of tubal ligation H/O spinal fusion Family History Father Alcoholism Mother HTN (hypertension) Hyperlipidemia CVD (cardiovascular disease) Sister Hyperlipidemia Alcoholism Substance use disorder Brother No problems noted. Sister No problems noted. Sister No problems noted. Sister No problems noted. Daughter No problems noted. Daughter No problems noted. Social History Household Members: Significant Other Household Members Other:: 2 Housing: Apartment Do you presently have visiting nurse or other home services: No Alcohol intake: never Patient Tobacco Use Status: Former Tobacco user Years Smoked: 4 yrs e-Cigarette/Vaping Use: Never Used Second Hand Smoke Exposure: No Advance Directives Date on File: 11/08/22 service: No Current occupational status: disabled Cognitive needs: No Hearing needs: No Vision needs: Yes Questionnaire PHQ-9 Over the last 2 weeks, how often have you been bothered by any of the following problems? 1. Little interest or pleasure in doing things: not at all 2. Feeling down, depressed, or hopeless: not at all 3. Trouble falling or staying asleep, or sleeping too much: not at all 4. Feeling tired or having little energy: not at all 5. Poor appetite or overeating: not at all 6. Feeling bad about yourself - or that you are a failure or have let yourself or your family down: not at all 7. Trouble concentrating on things, such as reading the newspaper or watching television: not at all 8. Moving or speaking so slowly that other people could have noticed. Or the opposite - being so fidgety or restless that you have been moving around a lot more than usual: not at all 9. Thoughts that you would be better off or of hurting yourself in some way: not at all Total score: 0 Depression Screening Interpretation: Negative Depression Screening Done: Yes 81555 - PHQ-9 Billing: Yes Source: Developed by Drs. Jose Etienne, Luz Falcon, Henrik Hernandez and colleagues, with an educational miesha from [employer]. Thrive Questionnaire Date Thrive assessed: 06/03/24 I am a: Patient What is your living situation today?: I have a steady place to live Within the past 12 months, did the food you bought not last and you didn't have the money to get more?: I choose not to answer this question Within the past 12 months, did you worry whether your food would run out before you got money to buy more?: I choose not to answer this question Do you have trouble paying for medicines?: No Do you have trouble getting transportation to medical appointments?: No Do you have trouble paying your heating and electricity bill?: No Do you have trouble taking care of your child, family member or friend?: No Do you have trouble with day-to-day activities such as bathing, preparing meals, shopping, managing finances, etc.?: No Are you interested in more education?: No THRIVE Score: 0 MARY-7 AMB Questionnaire MARY-7 Date MARY - 7 assessed: 02/01/24 Source: Developed by Luz ChapinW. Ezekiel, Henrik Hernandez and colleagues, with an educational miesha from [employer]. Review of Systems Const Reports no additional complaints Eyes Details: sees Dr. Tidwell at [facility] Denies dizziness Card Denies chest pain, Denies chest pain with activity, Denies syncope, Denies rapid heart rate, Denies edema, Denies lightheadedness, Denies dyspnea and Denies dyspnea on exertion Resp Denies cough, Denies dyspnea and Denies dyspnea on exertion GI Denies hematochezia, Denies change in stool character and Reports heartburn (Controlled on omeprazole) Details: Sees Dr. Thomas for her urinary incontinence Sees [facility] for routine Pap and pelvic exam Denies hot flashes and Reports urinary incontinence Musc Reports as per HPI, Denies muscle weakness, Denies numbness and Reports stiffness Skin/Breast Denies breast pain, Denies breast mass, Denies lesions and Denies rash Neuro Denies dizziness, Denies syncope and Denies numbness Psych Reports no additional complaints Endo Reports no additional complaints David/Lymph Denies easy bleeding and Denies easy bruising Aller/Immun Reports no additional complaints Physical exam (Primary Care) Vital Signs: Last Vital Signs Pulse 87 06/03/24 09:12 BP 135/80 06/03/24 09:12 Pulse Ox 96 06/03/24 09:12 Oxygen Delivery Method Room Air 06/03/24 09:12 BMI result Body Mass Index 37.7 Tobacco/Smoking Status: Tobacco use Status Tobacco use date assessed 02/14/24 06/03/24 09:16 Patient Tobacco Use Status Former Tobacco user 06/03/24 08:58 Tobacco use type 02/13/23 15:56 e-Cigarette/Vaping Use Never Used 06/03/24 08:58 PHQ-9: PHQ-9 Score PHQ-9: Total score 0 06/03/24 09:49 Depression Screening Interpretation: Negative Thrive Assessment: Date of Thrive Assessment Date Thrive assessed 06/03/24 06/03/24 08:58 Advance Care Planning discussion: Completed/Scanned Date of discussion: 06/03/24 Who was present: Patient Forms completed: Health Care Proxy Time spent: 16-45 minutes Actual minutes spent: 16 Const General: no acute distress and alert Nutritional Appearance: obese Orientation/consciousness: patient oriented x3 Limitations: ambulation with cane [facility] Other: Normocephalic, atraumatic General nose exam: Normal external nose present and No nasal discharge present Face and sinus: Yes face symmetric Mouth: Normal oral and palatal mucosa present and moist mucous membranes Teeth and gingiva: edentulous Eyes General: appearance normal, both eyes and all related structures Neck Neck: Yes full ROM, Yes no lymphadenopathy and Yes supple Chest Breast/axilla palpation: normal palpation of the breasts Resp Effort & Inspection: normal respiratory effort and able to speak in complete sentences Auscultation: clear to auscultation bilaterally Cardio Other: S1-S2 present regular rate and rhythm GI Palpation (GI): Soft to palpation, nontender, no guarding and no masses General: Yes no CVA tenderness and Yes deferred (Currently being followed by her OBGYN and has an appointment with [facility]) Back/Spine/Pelvis Back: no CVA tenderness and No back tenderness Skin General skin exam: no rashes or lesions noted Neuro General: patient oriented x3, Normal light touch and pain sensation, no focal motor deficits and CN's II-XI intact bilaterally Extrem Other: Ambulates with cane, due to pain in left leg General: Yes no joint enlargement Psych Appearance: grossly normal and well kempt Mental Status: mental status grossly normal Speech and movement: Normal speech and movement present Affect: normal affect Attitude: cooperative Thought process: Normal thought process present Thought content: Normal thought content present Results AMB Hemoglobin A1c AMB Hemoglobin A1c 6.5 % Last Edit by Jadyn Walker CMA on 06/03/24 09:39 Results Reviewed Results Reviewed: Laboratory Last Values Hgb A1c (Clinic) 6.5 % (4.0-6.0) H 06/03/24 09:22 Assessment and Plan Assessment & Plan (1) Annual visit for general adult medical examination with abnormal findings: Code(s): Z00.01 - Encounter for general adult medical examination with abnormal findings Plan: Will check appropriate labs. Continue with annual eye exam. Take adequate ca lcium in diet and vitamin-D 3 at 2000 IU per cap once a day, in addition to weight-bearing exercises to help maintain good muscle tone and weight control. Instructed to do self-breast exam, and recommended to get yearly mammogram, ordered today together with a bone density scan to be done together up-to-date with her screening colonoscopy due again in 2026, done by Dr. Posadas. Reminded to get her yearly flu shot, does not want to get a COVID booster, up-to-date with her pneumonia vaccine and received her 1st dose of shingles vaccine last week. (2) Dyslipidemia: Code(s): E78.5 - Hyperlipidemia, unspecified Plan: Get fasting lipids done, currently on atorvastatin 40 mg daily (3) Essential hypertension: Comment: currently under control without meds for a few yrs. Code(s): I10 - Essential (primary) hypertension Plan: Continue amlodipine 5 mg daily , ordered basic metabolic panel to be as well as fasting lipids (4) GERD (gastroesophageal reflux disease): Code(s): K21.9 - Gastro-esophageal reflux disease without esophagitis Plan: Controlled with omeprazole 40 mg daily (5) Generalized anxiety disorder: Code(s): F41.1 - Generalized anxiety disorder Plan: Continue with fluoxetine and BuSpar to same day (6) Type 2 diabetes mellitus without complication, without long-term current use of insulin: Code(s): E11.9 - Type 2 diabetes mellitus without complications Plan: Hemoglobin A1c 6.3%, continued on metformin 500 mg 1 daily, up-to-date with her diabetes retinopathy screening reminded to get her flu shot but does not want to get a COVID booster up-to-date with her pneumonia vaccine (7) Postmenopausal status: Code(s): Z78.0 - Asymptomatic menopausal state Plan: Will check vitamin-D level, and ordered bone density scan (8) Advanced directives, counseling/discussion: Code(s): Z71.89 - Other specified counseling Plan: Initiated the conversation about Advanced Directives. Advanced Directives help patients prepare for current and future decisions about their medical treatment and place of care. Discussed with patient that it is a process where a patients current condition and prognosis are reviewed, their wishes for information regarding their illness are elicited, and likely medical dilemmas are presented and options discussed. Healthcare proxy form completed today. 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: Code(s): S82.K - Unspecified fracture of shaft of left tibia, subsequent encounter for closed fracture with nonunion Plan: Followed by [facility], with bone stimulator ordered (10) Vitamin B12 deficiency: Code(s): E53.8 - Deficiency of other specified B group vitamins Plan: Continue vitamin B12 1000 mcg daily, will check levels Orders: Orders XR DEXA axial skeleton Today I10 - Essential (primary) hypertension, S82.202G - Unspecified fracture of shaft of left tibia, subsequent encounter for closed fracture with delayed healing, S82.302A - Unspecified fracture of lower end of left tibia, initial encounter for closed fracture, S82.832A - Other fracture of upper and lower end of left fibula, initial encounter for closed fracture, Z12.31 - Encounter for screening mammogram for malignant neoplasm of breast, Z78.0 - Asymptomatic menopausal state MM tomosynthesis screening BI Today I10 - Essential (primary) hypertension, S82.202G - Unspecified fracture of shaft of left tibia, subsequent encounter for closed fracture with delayed healing, S82.302A - Unspecified fracture of lower end of left tibia, initial encounter for closed fracture, S82.832A - Other fracture of upper and lower end of left fibula, initial encounter for closed fracture, Z12.31 - Encounter for screening mammogram for malignant neoplasm of breast, Z78.0 - Asymptomatic menopausal state Vitamin B12 and Folate Today E53.8 - Deficiency of other specified B group vitamins AMB Hemoglobin A1c Today E11.9 - Type 2 diabetes mellitus without complications Medications: Changed From buspirone 5 mg PO TID 90 tabs 5RF To buspirone 5 mg PO BID Coding Level of Care Code Est Pt Prev Care 40-64y(12044) Diagnoses Annual visit for general adult medical examination with abnormal findings Z00.01 Dyslipidemia E78.5 Essential hypertension I10 GERD (gastroesophageal reflux disease) K21.9 Generalized anxiety disorder F41.1 Type 2 diabetes mellitus without complication, without long-term current use of insulin E11.9 Postmenopausal status Z78.0 Advanced directives, counseling/discussion Z71.89 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
[2024-06-03 09:12] VITALS: BP 135/80; PULSE 87; O2SAT 96; BMI 37.7
== END 2024-06-03 10:12 | disposition home or self-care (01) ==
PROVIDERS: PCP Internal Medicine; Visit Provider Internal Medicine
DX: Z00.00 Encounter for general adult medical examination without abnormal findings (principal); E11.69 Type 2 diabetes mellitus with other specified complication; E78.5 Hyperlipidemia, unspecified; I10 Essential (primary) hypertension; K21.9 Gastro-esophageal reflux disease without esophagitis; F41.1 Generalized anxiety disorder; Z78.0 Asymptomatic menopausal state; Z71.89 Other specified counseling; S82.202K Unspecified fracture of shaft of left tibia, subsequent encounter for closed fracture with nonunion; E53.8 Deficiency of other specified B group vitamins

== ENCOUNTER → 2024-06-03 08:54 | Outpatient (BNVA) | payer MEDICARE, OTHER, SELFPAY | PROVIDERS: PCP Internal Medicine; Visit Provider Internal Medicine | DX: Z00.01 Encounter for general adult medical examination with abnormal findings (principal); E78.5 Hyperlipidemia, unspecified; I10 Essential (primary) hypertension; K21.9 Gastro-esophageal reflux disease without esophagitis; F41.1 Generalized anxiety disorder; E11.9 Type 2 diabetes mellitus without complications; E53.8 Deficiency of other specified B group vitamins; S82.202K Unspecified fracture of shaft of left tibia, subsequent encounter for closed fracture with nonunion; Z78.0 Asymptomatic menopausal state; Z71.89 Other specified counseling | CPT/HCPCS: 83036; 96127; 99396; 99497 ==

== ENCOUNTER → 2024-07-04 10:32 | Outpatient (REF) | payer MEDICARE, OTHER, SELFPAY ==
--- NOTE | 2024-07-04 10:34 | HM_ITS ---
* Total procedure time 30 days. Wear time 29 days. * Underlying rhythm is sinus with an average rate of 78/Min. * Rare supraventricular ectopy. * Rare ventricular ectopy. * No significant pauses or high-grade AV blocks. MTDD
== END ==
LOC: HO.CARD 10:32
PROVIDERS: PCP Internal Medicine; Visit Provider Internal Medicine Cardiovascular Disease
DX: R00.2 Palpitations (principal)
CPT/HCPCS: 93270

== ENCOUNTER → 2024-07-04 10:34 | Outpatient (BNV) | payer MEDICARE, OTHER, SELFPAY | PROVIDERS: PCP Internal Medicine; Visit Provider Internal Medicine | DX: I47.10 Supraventricular tachycardia, unspecified (principal) | CPT/HCPCS: 93272 ==

== ENCOUNTER 2024-07-23 08:44 | Outpatient (AMB) | payer MEDICARE, OTHER, SELFPAY ==
--- NOTE | 2024-07-23 09:58 | AM.OFFWIN_ITS ---
Intake Vital Signs 07/23/24 09:59 Weight 206 lb BP 122/80 Blood Pressure Location Lt brachial Position Sitting Pulse 66 Pulse Source Pulse Oximeter Temp 98.2 F Temp Source Oral Pulse Oximetry (%) 97 Oxygen Delivery Method Room Air Intake Visit Reasons: EP cold symptoms, cough, congested Intake Note: Patient here for cough, congestion, raspy voice, headache that has been present for almost 1 week. Patient Tobacco Use Status: Former Tobacco user Allergies Iodinated Contrast Media [IV CONTRAST] Adverse Reaction (Intermediate, Verified 07/23/24 10:00) Rash capsaicin Adverse Reaction (Verified 07/23/24 10:00) Rash perflutren [From Definity] Adverse Reaction (Verified 07/23/24 10:00) Back Pain Do you need a note to return to daycare/school/sports/work: No HPI HPI Comments History of Present Illness Details 64 y/o female patient who presents to [facility] with c/o persistent cough since Monday. Denies fevers, chills, nausea or vomiting. Has been using NyQuil and cough drops with minimal relief. 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 History of abnormal cervical Pap smear Anemia Type 2 diabetes mellitus without complication, without long-term current use of insulin Prolapse of female pelvic organs Prepatellar bursitis Primary hypertension Generalized anxiety disorder COPD (chronic obstructive pulmonary disease) History of COVID-19 Depression, major, recurrent, in complete remission Herpes zoster Left shoulder tendinitis GERD (gastroesophageal reflux disease) Calcaneal spur of left foot Arthritis of first metatarsophalangeal (MTP) joint of left foot Deviated nasal septum History of pulmonary embolism History of thyroid cancer Essential hypertension Dyslipidemia Surgical History (Updated 06/03/24 @ 10:24 by Flakita Calero MD) History of fusion of cervical spine Status post open reduction and internal fixation (ORIF) of fracture (~09/16/23) Hx of left breast biopsy History of partial thyroidectomy History of surgery History of cervical spinal surgery History of shoulder surgery History of colonoscopy History of tubal ligation H/O spinal fusion Family History Father Alcoholism Mother HTN (hypertension) Hyperlipidemia CVD (cardiovascular disease) Sister Hyperlipidemia Alcoholism Substance use disorder Brother No problems noted. Sister No problems noted. Sister No problems noted. Sister No problems noted. Daughter No problems noted. Daughter No problems noted. Social History Household Members: Significant Other Household Members Other:: 2 Housing: Apartment Do you presently have visiting nurse or other home services: No Alcohol intake: never Patient Tobacco Use Status: Former Tobacco user Years Smoked: 4 yrs e-Cigarette/Vaping Use: Never Used Second Hand Smoke Exposure: No Advance Directives Date on File: 11/08/22 service: No Current occupational status: disabled Cognitive needs: No Hearing needs: No Vision needs: Yes Review of Systems Const All systems reviewed & are unremarkable except as noted in HPI and below Physical Exam Vital Signs: Last Vital Signs Temp 98.2 F 07/23/24 09:59 Pulse 66 07/23/24 09:59 BP 122/80 07/23/24 09:59 Pulse Ox 97 07/23/24 09:59 Oxygen Delivery Method Room Air 07/23/24 09:59 Const General: cooperative and no acute distress Nutritional Appearance: overweight Orientation/consciousness: patient oriented x3 HEENT Head: Yes normocephalic Ears: external ears normal and TM's normal bilaterally General nose exam: Normal external nose present Face and sinus: Yes sinuses nontender Mouth: moist mucous membranes Resp Effort & Inspection: normal respiratory effort, able to speak in complete sentences and Actively coughing Quality: actively coughing Auscultation: no crackles, no rales, no rhonchi and no wheezes Cardio Heart sounds: S1 normal heart sound present and S2 normal heart sound present Neuro General: patient oriented x3 Assessment & Plan Assessment & Plan (1) Cough: Code(s): R05.9 - Cough, unspecified Qualifiers: Cough type: acute Qualified Code(s): R05.1 - Acute cough Plan: Ordered Benzonatate Rest and hydrate well Cough drops and other OTC remedies. RTC if not better. Medications: New benzonatate 100 mg PO TID 60 caps 0RF cough R05.1 - Acute cough Coding Level of Care Code Est Pt Level 3 (55848) Diagnoses Acute cough R05.1 Cough type: acute Time Spent (min) 15
[2024-07-23 09:59] VITALS: BP 122/80; PULSE 66; TEMP 36.8; O2SAT 97
== END 2024-07-23 10:13 | disposition home or self-care (01) ==
PROVIDERS: PCP Internal Medicine; Visit Provider Nurse Practitioner Family
DX: R05.1 Acute cough (principal)

== ENCOUNTER → 2024-07-23 08:44 | Outpatient (BNVA) | payer MEDICARE, OTHER, SELFPAY | PROVIDERS: PCP Internal Medicine; Visit Provider Nurse Practitioner Family | DX: R05.1 Acute cough (principal) | CPT/HCPCS: 99212 ==

== ENCOUNTER 2024-08-01 10:09 | Outpatient (AMB) | payer MEDICARE, OTHER, SELFPAY ==
[2024-08-01 10:14] VITALS: BMI 37.7
--- NOTE | 2024-08-01 10:14 | A.OFFVIS_ITS ---
Vital Signs 08/01/24 10:14 Height 5 ft 2 in Weight 206 lb BMI 37.7 Intake Visit Reasons: OV - Left Tib/Fib ORIF 09/16/23 Intake Note: Ya is a 63 year old female who presents to the office today for a follow up of her left ankle s/p Left Tib/fib ORIF 09/16/23. Patient was denied for bone stimulator. Patient reports that she is having continued pain in the medial and lateral aspects of the ankle. Increased pain with cold weather. Allergies Iodinated Contrast Media [IV CONTRAST] Adverse Reaction (Intermediate, Verified 07/23/24 10:00) Rash capsaicin Adverse Reaction (Verified 07/23/24 10:00) Rash perflutren [From Definity] Adverse Reaction (Verified 07/23/24 10:00) Back Pain HPI HPI OV - Left Tib/Fib ORIF 09/16/23: Details: Ya is a 63 year old female who presents to the office today for a follow up of her left ankle s/p Left Tib/fib ORIF 09/16/23. Patient was denied for bone stimulator. Patient reports that she is having continued pain in the medial and lateral aspects of the ankle. Increased pain with cold weather. 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 History of abnormal cervical Pap smear Anemia Type 2 diabetes mellitus without complication, without long-term current use of insulin Prolapse of female pelvic organs Prepatellar bursitis Primary hypertension Generalized anxiety disorder COPD (chronic obstructive pulmonary disease) History of COVID-19 Depression, major, recurrent, in complete remission Herpes zoster Left shoulder tendinitis GERD (gastroesophageal reflux disease) Calcaneal spur of left foot Arthritis of first metatarsophalangeal (MTP) joint of left foot Deviated nasal septum History of pulmonary embolism History of thyroid cancer Essential hypertension Dyslipidemia Surgical History (Updated 06/03/24 @ 10:24 by Flakita Calero MD) History of fusion of cervical spine Status post open reduction and internal fixation (ORIF) of fracture (~09/16/23) Hx of left breast biopsy History of partial thyroidectomy History of surgery History of cervical spinal surgery History of shoulder surgery History of colonoscopy History of tubal ligation H/O spinal fusion Family History Father Alcoholism Mother HTN (hypertension) Hyperlipidemia CVD (cardiovascular disease) Sister Hyperlipidemia Alcoholism Substance use disorder Brother No problems noted. Sister No problems noted. Sister No problems noted. Sister No problems noted. Daughter No problems noted. Daughter No problems noted. Social History Household Members: Significant Other Household Members Other:: 2 Housing: Apartment Do you presently have visiting nurse or other home services: No Alcohol intake: never Patient Tobacco Use Status: Former Tobacco user Years Smoked: 4 yrs e-Cigarette/Vaping Use: Never Used Second Hand Smoke Exposure: No Advance Directives Date on File: 11/08/22 service: No Current occupational status: disabled Cognitive needs: No Hearing needs: No Vision needs: Yes Physical Exam Vital Signs: BMI result Body Mass Index 37.7 Extrem Other: Tenderness to palpation over the medial tibia. Incision clean dry and intact. Walks with a cane. Results Reviewed Results Reviewed: I personally reviewed relevant radiographs. 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 Needs a bone stimulator. 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
== END 2024-08-01 10:50 | disposition home or self-care (01) ==
PROVIDERS: PCP Internal Medicine; Visit Provider Orthopaedic Surgery
DX: S82.202K Unspecified fracture of shaft of left tibia, subsequent encounter for closed fracture with nonunion (principal)
CPT/HCPCS: 99213

== ENCOUNTER 2024-08-01 15:03 | Outpatient (REF) | payer MEDICARE, OTHER, SELFPAY ==
--- NOTE | ~2024-08-01 | XR_ITS ---
EXAMINATION: Left tibia-fibula series CLINICAL INFORMATION: Fracture left tibia COMPARISON: Prior examinations most recent 04/29/2024 TECHNIQUE: 2 views of left tibia-fibula FINDINGS: Postoperative changes with plate and screw fixation along the distal tibia crossing the previously noted distal tibial fracture and plate and screw fixation crossing the previously noted distal fibular fracture. Persistent lucency across a dominant sagittal obliquely oriented fracture through the diametaphysis. Suspect at least partial osseous bridging across the smaller metaphyseal fracture lines. Alignment unchanged. Persistent partial osseous bridging across the distal fibular fracture unchanged. Stable alignment. Incidental note made of calcaneal spurs XR/XR tibia fibula LT 2V IMPRESSION: Postoperative changes of the distal tibia with the stable alignment and partial osseous bridging across the smaller fracture lines persistent lucency across the dominant oblique fracture line. Postoperative changes of the distal fibula with some prominent osseous bridging unchanged and unchanged alignment Electronically signed by: Cosme Yarbrough MD 08/07/2024 10:17 AM [facility]
== END 2024-08-01 15:04 | disposition home or self-care (01) ==
LOC: HO.HOSX 15:03
PROVIDERS: Visit Provider Orthopaedic Surgery
DX: S82.202K Unspecified fracture of shaft of left tibia, subsequent encounter for closed fracture with nonunion (principal); Z98.890 Other specified postprocedural states
CPT/HCPCS: 73590; 99212

== ENCOUNTER 2024-08-02 09:31 | Outpatient (REF) | payer MEDICARE, OTHER, SELFPAY ==
--- NOTE | ~2024-08-02 | MM_ITS ---
EXAMINATION: BONE DENSITOMETRY CLINICAL INDICATION: Menopause. COMPARISON: Previous BD dated 06/28/2016 and baseline BD dated 01/08/2010. TECHNIQUE: Using a [employer] DXA System (software version: 13.1) manufactured by [employer], dual-energy x-ray absorptiometry was performed of the lumbar spine and left hip. The images are of good technical quality. Summary results are attached. FINDINGS: LEFT FEMUR, NECK: Current: BMD 0.830 g/cm2, Z-score -0.7, T-score -1.5, osteopenia. Prior: BMD 0.999 g/cm2. Baseline: BMD 0.884 g/cm2. LEFT FEMUR, TOTAL: Current: BMD 0.982 g/cm2, Z-score 0.3, T-score -0.2, normal, 9.2% decrease from previous, 0.1% increase from baseline (<5% change is not significant). Prior: BMD 1.082 g/cm2. Baseline: BMD 0.981 g/cm2. AP SPINE L1-L4: Current: BMD 1.131 g/cm2, Z-score 0.2, T-score -0.4, normal, 8.4% decrease from previous, 4.6% decrease from baseline (<5% change is not significant). Prior: BMD 1.035 g/cm2. Baseline: BMD 1.185 g/cm2. IDENTIFIED RISK FACTORS: Menopause, recurrent falls, anticonvulsants, glucocorticoids (chronic), rheumatoid arthritis, history of fracture (adult). HISTORY OF FRACTURE: Other fracture. MEDICATIONS: Vitamin D. MM/XR DEXA axial skeleton IMPRESSION: 1. DIAGNOSIS: Osteopenia based on the lowest T-score value of -1.5 in the femoral neck applying World Health Organization criteria. 2. 10-YEAR FRACTURE RISK PREDICTION, FRAX: Major osteoporotic fracture (clinical spine, forearm, hip or shoulder) 26.1%. Hip fracture 3.3%. 3. Treatment Recommendations: NOF guidelines recommend consideration for treatment in postmenopausal women and men age 50 and older presenting with the following: -A hip or vertebral (clinical or morphometric) fracture. -T-score less than or equal to -2.5 at the femoral neck or spine after appropriate evaluation to exclude secondary causes. -Low bone mass at the hip or spine and a 10-year fracture probability by FRAX of greater than or equal to 3% for hip fracture or greater than or equal to 20% for major osteoporotic fracture based on the [place] adapted WHO algorithm. 4. Other Recommendations: All treatment decisions require clinical judgment and consideration of individual patient factors, including patient preferences, comorbidities, previous drug use, risk factors not captured in the FRAX model (e.g. frailty, falls, vitamin D deficiency, increased bone turnover, interval significant decline in bone density) and possible under or overestimation of fracture risk by FRAX. Additional medical evaluation for secondary cause of low bone mineral density may be appropriate. FUTURE SCAN RECOMMENDATION: People with diagnosed cases of osteoporosis or at high risk for fracture should have regular bone mineral density tests. For patients eligible for Medicare, routine testing is allowed once every 2 years. The testing frequency can be increased to one year for patients who have rapidly progressing disease, those who are receiving or discontinuing medical therapy to restore bone mass, or have additional risk factors. Electronically signed by: Sonia Carcamo MD 08/02/2024 11:36 AM [facility]
== END 2024-08-02 09:32 | disposition home or self-care (01) ==
LOC: HO.MAMMO 09:31
PROVIDERS: PCP Internal Medicine; Visit Provider Internal Medicine
DX: Z78.0 Asymptomatic menopausal state (principal); S82.832A Other fracture of upper and lower end of left fibula, initial encounter for closed fracture; S82.302A Unspecified fracture of lower end of left tibia, initial encounter for closed fracture; I10 Essential (primary) hypertension; S82.202G Unspecified fracture of shaft of left tibia, subsequent encounter for closed fracture with delayed healing; Z12.31 Encounter for screening mammogram for malignant neoplasm of breast; Z91.81 History of falling; M06.9 Rheumatoid arthritis, unspecified; Z79.899 Other long term (current) drug therapy; Z79.52 Long term (current) use of systemic steroids
CPT/HCPCS: 77080

== ENCOUNTER 2024-08-07 12:06 | Outpatient (REF) | payer MEDICARE, OTHER, SELFPAY ==
--- NOTE | ~2024-08-07 | MM_ITS ---
EXAMINATION: MM SCREENING DIGITAL BREAST TOMOSYNTHESIS, BILATERAL CLINICAL INFORMATION: Screening. Asymptomatic. COMPARISON: Mammography: Comparison is made with available priors TECHNIQUE: Digital breast mammography with tomosynthesis is performed in both the craniocaudal and mediolateral oblique views along with computer-aided detection (CAD). FINDINGS: There are scattered areas of fibroglandular density (ACR BI-RADS breast composition Category b). Prior left excisional biopsy changes. There are no significant masses, abnormal calcifications, or other abnormalities. MM/MM tomosynthesis screening BI IMPRESSION: No mammographic evidence of malignancy. ASSESSMENT: BI-RADS BI-RADS 2 - Benign Findings RECOMMENDATION: Routine annual mammography screening. 1 year F/U This examination should not preclude the clinical evaluation of a suspicious palpable abnormality. This patient's information was entered into a reminder system with a target due date for their next mammogram. Electronically signed by: Chastity Norman DO 08/16/2024 09:40 AM [facility]
== END 2024-08-07 12:07 | disposition home or self-care (01) ==
LOC: HO.MAMMO 12:06
PROVIDERS: PCP Internal Medicine; Visit Provider Internal Medicine
DX: Z12.31 Encounter for screening mammogram for malignant neoplasm of breast (principal)
CPT/HCPCS: 77063; 77067

== ENCOUNTER → 2024-08-07 12:30 | Outpatient (BNV) | payer MEDICARE, OTHER, SELFPAY | PROVIDERS: PCP Internal Medicine; Visit Provider Internal Medicine | DX: Z12.31 Encounter for screening mammogram for malignant neoplasm of breast (principal) | CPT/HCPCS: 77063; 77067 ==

== ENCOUNTER → 2024-08-27 08:32 | Outpatient (REF) | payer MEDICARE, OTHER, SELFPAY ==
--- NOTE | 2024-08-27 08:38 | ECG_ITS ---
Test Reason : PRE OP Blood Pressure : / mmHG Vent. Rate : 086 BPM Atrial Rate : 086 BPM P-R Int : 170 ms QRS Dur : 084 ms QT Int : 398 ms P-R-T Axes : 068 054 078 degrees QTc Int : 476 ms Normal sinus rhythm Nonspecific ST and T wave abnormality Prolonged QT Abnormal ECG When compared with ECG of 14-SEP-2023 17:01, No significant change was found Referred By: Flakita Calero Electronically Signed By:YAKOV ROBERT
--- OUTSIDE RECORDS SUMMARY | 2024-08-27 08:41 | XMS_ITS ---
Author Name [facility] Organization Unknown History of Medication Use Medication Directions Dispensed Refills Start Date End Date Stat azithromycin 500 mg tablet TAKE ONE TABLET BY MOUTH EVERY 24 HOURS 04/30/2023 completed amlodipine 2.5 mg tablet TAKE TWO TABLETS BY MOUTH EVERY DAY 04/30/2023 active Kenalog 40 mg/mL suspension for injection Take 1 mL by injection route. 05/13/2023 completed Chest Congestion Relief 100 mg/5 mL oral liquid TAKE 100MG 5 ML'S) BY MOUTH EVERY 6 HOURS NEEDED FOR COUGH 04/30/2023 completed omeprazole 40 mg capsule,delayed release TAKE ONE CAPSULE BY MOUTH EVERY EVENING NEEDED FOR HEARTBURN SYMPTOMS 04/30/2023 active lidocaine (PF) 10 mg/mL (1 %) injection solution 06/09/2023 active meloxicam 15 mg tablet TAKE ONE TABLET BY MOUTH EVERY DAY 04/30/2023 completed trazodone 100 mg tablet TAKE ONE TABLET BY MOUTH AT BEDTIME 04/30/2023 active cefuroxime axetil 500 mg tablet TAKE ONE TABLET BY MOUTH TWICE A DAY 04/30/2023 completed trospium ER 60 mg capsule,extended release 24 hr TAKE ONE CAPSULE BY MOUTH EVERY DAY 04/30/2023 active omeprazole 40 mg capsule,delayed release TAKE ONE CAPSULE BY MOUTH EVERY EVENING NEEDED FOR HEARTBURN SYMPTOMS 04/30/2023 active lidocaine (PF) 10 mg/mL (1 %) injection solution 06/09/2023 active Bactrim DS 800 mg-160 mg tablet Take 1 tablet every 12 hours by oral route. 04/30/2023 active Bactrim DS 800 mg-160 mg tablet 06/09/2023 active Eliquis 5 mg tablet TAKE ONE TABLET BY MOUTH TWICE A DAY 04/30/2023 active tolterodine ER 4 mg capsule,extended release 24 hr TAKE ONE TABLET BY MOUTH AT THE SAME TIME DAILY 04/30/2023 active lidocaine (PF) 10 mg/mL (1 %) injection solution Take 2 mL by injection route. 04/30/2023 completed cholecalciferol (vitamin D3) 1,250 mcg (50,000 unit) capsule TAKE ONE CAPSULE BY MOUTH ONCE EVERY WEEK 04/30/2023 completed metformin 500 mg tablet TAKE ONE TABLET BY MOUTH ONCE DAILY 04/30/2023 active celecoxib 200 mg capsule TAKE ONE CAPSULE BY MOUTH EVERY DAY 04/30/2023 completed buspirone 5 mg tablet TAKE ONE TABLET BY MOUTH THREE TIMES A DAY 04/30/2023 active atorvastatin 40 mg tablet TAKE ONE TABLET BY MOUTH AT BEDTIME 04/30/2023 active sulfamethoxazole 800 mg-trimethoprim 160 mg tablet TAKE ONE TABLET BY MOUTH EVERY 12 HOURS 05/13/2023 completed fluoxetine 20 mg capsule TAKE TWO CAPSULES BY MOUTH EVERY DAY 04/30/2023 active Allergies Allergen Reaction Severity Comment Documented Date Source Statu s IODINATED CONTRAST MEDIA [facility] ECT Problems Problem Status Onset Date Problem Type Date of Resoluti on Source Osteoarthritis of left knee joint active 2023-05-11 ProblemAct [facility] Synovial cyst of right popliteal space active 2023-08-10 ProblemAct [facility] Prepatellar bursitis of left knee active 2023-04-27 ProblemAct [facility]
[2024-08-27 08:57] LABS: MANUAL DIFF FLAG NO
[2024-08-27 09:07] LABS: Basophils Percent Auto 0.7 % (0-2); Eosinophils Absolute Auto 0.1 X10*3/uL (0.0-0.4); Eosinophils Percent Auto 1.4 % (0-4); Hematocrit 39.1 % (37.0-47.0); Hemoglobin 12.8 g/dl (12.0-16.0); Imm Gran Abs Auto 0.02 X10*3/uL (0.00-0.03); Imm Gran Pct Auto 0.3 % (0.0-0.4); Lymphocytes Absolute Auto 2.1 X10*3/uL (1.2-4.9); Lymphocytes Percent Auto 34.7 % (20-40); Mean Corpuscular HGB Conc 32.7 g/dl (31.0-35.0); Mean Corpuscular Hemoglobin 28.4 pg (27.0-33.0); Mean Corpuscular Volume 86.9 fL (80.0-98.0); Mean Platelet Volume 9.8 fL (9.4-12.3); Monocytes Absolute Auto 0.4 X10*3/uL (0.1-1.2); Monocytes Percent Auto 6.1 % (2-11); Neutrophils Absolute Auto 3.4 x10*3/uL (2.0-8.3); Neutrophils Percent Auto 56.8 % (45-73); Platelet Count 293 X10*3/uL (160-400); White Blood Count 5.9 X10*3/uL (4.8-10.8)
[2024-08-27 09:13] LABS: Estimated Average Glucose 169 mg/dL; Hemoglobin A1C 188.0102 umol/L; Hemoglobin A1c % 7.5 % (<6.0); Total Hemoglobin (HGBA1C) 3210.7056 umol/L
[2024-08-27 09:14] LABS: INTERNATIONAL NORM RATIO 1.1 (0.9-1.1); Prothrombin Time 12.9 SEC (10.9-12.4)
[2024-08-27 09:17] LABS: Partial Thromboplastin Time 35.5 SEC (26.0-36.8)
[2024-08-27 09:43] LABS: Anion Gap 13 (12-20); Blood Urea Nitrogen 6 mg/dL (9-16); Carbon Dioxide 23 mmol/L (22-29); Chloride 105 mmol/L (96-108); Estimated Glomerular Filt Rate > 60; Glucose Fasting 190 mg/dL (60-99); Potassium 3.9 mmol/L (3.3-5.1); Sodium 137 mmol/L (135-145)
[2024-08-27 09:44] LABS: Alanine Aminotransferase 49 U/L (0-31); Aspartate Amino Transferase 43 U/L (5-31); Calcium 9.2 mg/dL (8.4-10.2); Cholesterol 148 mg/dL (<200); HDL Cholesterol 39 mg/dL (>40); Iron 84 mcg/dL (30-160); LDL Cholesterol Calculated 80 mg/dL (<100); Percent Iron Saturation 27 % (15-50); Total Iron Binding Capacity 306 mcg/dL (228-428); Triglycerides 148 mg/dL (<150); Unsaturated Iron Binding 222 ug/dL
[2024-08-27 09:55] LABS: Microalbum/Creatinine Ratio Ur 21.4 ug/mg cr (<30)
[2024-08-27 10:12] LABS: Folate 7.2 ng/mL (> or = 4.0); Vitamin B12 1515 pg/mL (200-900)
== END ==
LOC: HO.CARD 08:32
PROVIDERS: PCP Internal Medicine; Visit Provider Internal Medicine
DX: Z01.818 Encounter for other preprocedural examination (principal); R94.31 Abnormal electrocardiogram [ECG] [EKG]; I10 Essential (primary) hypertension; K21.9 Gastro-esophageal reflux disease without esophagitis; F41.1 Generalized anxiety disorder; E78.5 Hyperlipidemia, unspecified; D64.9 Anemia, unspecified; R00.2 Palpitations; E11.29 Type 2 diabetes mellitus with other diabetic kidney complication; R80.9 Proteinuria, unspecified; E53.8 Deficiency of other specified B group vitamins; S82.202K Unspecified fracture of shaft of left tibia, subsequent encounter for closed fracture with nonunion; Z78.0 Asymptomatic menopausal state; Z79.01 Long term (current) use of anticoagulants
CPT/HCPCS: 36415; 80048; 80061; 82043; 82306; 82570; 82607; 82746; 83036; 83540; 84450; 84460; 85025; 85610; 85730; 93005

== ENCOUNTER → 2024-08-27 08:38 | Outpatient (BNV) | payer MEDICARE, OTHER, SELFPAY | PROVIDERS: PCP Internal Medicine; Visit Provider Internal Medicine | DX: R94.31 Abnormal electrocardiogram [ECG] [EKG] (principal) | CPT/HCPCS: 93010 ==

== ENCOUNTER 2024-09-03 09:49 | Outpatient (AMB) | payer MEDICARE, OTHER, SELFPAY ==
[2024-09-03 09:52] VITALS: BP 135/86; PULSE 88; O2SAT 95; BMI 37.9
--- NOTE | 2024-09-03 09:52 | MHC.PC.OV ---
Vital Signs 09/03/24 09:52 Height 5 ft 2 in Weight 207 lb BMI 37.9 BP 135/86 Blood Pressure Location Lt brachial Position Sitting Pulse 88 Pulse Source Pulse Oximeter Pulse Oximetry (%) 95 Oxygen Delivery Method Room Air Intake Visit Reasons: pre-op bilateral upper eyelid 09/24/24 Intake Note: Pt is here today for her pre-op bilateral upper eyelid 09/24/24 Allergies Iodinated Contrast Media [IV CONTRAST] Adverse Reaction (Intermediate, Verified 09/03/24 10:33) Rash capsaicin Adverse Reaction (Verified 09/03/24 10:33) Rash perflutren [From Definity] Adverse Reaction (Verified 09/03/24 10:33) Back Pain Medication List - Last Reconciled 09/03/24 by Flakita Calero MD amlodipine 5 mg PO DAILY apixaban (Eliquis) 5 mg PO BID atorvastatin 40 mg PO BEDTIME benzonatate 100 mg PO TID buspirone 5 mg PO BID cetirizine 10 mg PO DAILY cyanocobalamin (vitamin B-12) (Vitamin B-12) 1,000 mcg PO DAILY fluoxetine 40 mg (2 x 20 mg) PO DAILY metformin 500 mg PO DAILY omeprazole 40 mg PO QPM tolterodine ER 4 mg PO DAILY trazodone 100 mg PO BEDTIME Tobacco use date assessed: 09/03/24 Dental Screening Dental Screen Date: 09/03/24 Did you have a dental problem in the last 6 months where you did not have access to dental care?: No Was dental information given to patient?: Patient declined (doesn't have teeth) HPI pre-op bilateral upper eyelid 09/24/24 HPI Details - The patient is a 64-year-old female with past medical history significant for type 2 diabetes mellitus, generalized anxiety disorder, hypertension, dyslipidemia, history of spontaneous bilateral pulmonary embolism currently on Eliquis, 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 Patient admitting to a lot of dietary indiscretions recently and has been sedentary most of the time. - Hyperlipidemia: HDL lower than desired; total cholesterol, LDL cholesterol, and triglycerides within normal limits, currently on atorvastatin 40 mg daily.. - Vitamin B12 Hypervitaminosis: High levels noted; advised to withhold vitamin B12 supplementation. -hypertension stable and controlled on amlodipine -generalized anxiety disorder stable and controlled on fluoxetine and buspirone, takes trazodone at night to help withdifficulty initiating sleep -complains of having intermittent episodes of precordial chest pain, nonreproducible, unrelated to eating, eating, or exertion. Episodes of usually, at rest and last for no more than 5 minutes and resolved spontaneously. Does not accompanied by any palpitations, no shortness of breath, no lightheadedness. [facility] Medical History (Updated 09/08/24 @ 22:21 by Flakita Calero MD) Type 2 diabetes mellitus with hyperglycemia, without long-term current use of insulin Preoperative examination Current use of intermodal dispatcher anticoagulation History of abnormal cervical Pap smear Prolapse of female pelvic organs Prepatellar bursitis Primary hypertension Generalized anxiety disorder COPD (chronic obstructive pulmonary disease) History of COVID-19 Depression, major, recurrent, in complete remission Herpes zoster Left shoulder tendinitis GERD (gastroesophageal reflux disease) Calcaneal spur of left foot Arthritis of first metatarsophalangeal (MTP) joint of left foot Deviated nasal septum History of pulmonary embolism History of thyroid cancer Essential hypertension Dyslipidemia Surgical History History of fusion of cervical spine Status post open reduction and internal fixation (ORIF) of fracture (~09/16/23) Hx of left breast biopsy History of partial thyroidectomy History of surgery History of cervical spinal surgery History of shoulder surgery History of colonoscopy History of tubal ligation H/O spinal fusion Family History Father Alcoholism Mother HTN (hypertension) Hyperlipidemia CVD (cardiovascular disease) Sister Hyperlipidemia Alcoholism Substance use disorder Brother No problems noted. Sister No problems noted. Sister No problems noted. Sister No problems noted. Daughter No problems noted. Daughter No problems noted. 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 2. Feeling down, depressed, or hopeless: not at all 3. Trouble falling or staying asleep, or sleeping too much: not at all 4. Feeling tired or having little energy: not at all 5. Poor appetite or overeating: not at all 6. Feeling bad about yourself - or that you are a failure or have let yourself or your family down: not at all 7. Trouble concentrating on things, such as reading the newspaper or watching television: not at all 8. Moving or speaking so slowly that other people could have noticed. Or the opposite - being so fidgety or restless that you have been moving around a lot more than usual: not at all 9. Thoughts that you would be better off or of hurting yourself in some way: not at all Source: Developed by Drs. Jose Etienne, Luz Falcon, Henrik Hernandez and colleagues, with an educational miesha from [employer]. Thrive Questionnaire Date Thrive assessed: 06/03/24 Are you currently unemployed and looking for a job?: Yes Are you interested in more education?: No Please select the resources that you would like help with: None Currently or been in a relationship where the following occur: No concerns reported THRIVE Score: 0 AUDIT C Alcohol Use Questionnaire (AUDIT-C) 1. How often do you have a drink containing alcohol?: Monthly or less 2. How many drinks containing alcohol do you have on a typical day when you are drinking?: 1 or 2 3. How often do you have six or more drinks on one occasion?: Never Total Score: 1 MARY-7 AMB Questionnaire MARY-7 Date MARY - 7 assessed: 02/01/24 Feeling nervous, anxious, or on edge: 0 = Not at all Not being able to stop or control worryin = Not at all Worrying too much about different things: 0 = Not at all Trouble relaxin = Not at all Being so restless that it is hard to sit still: 0 = Not at all Becoming easily annoyed or irritable: 0 = Not at all Feeling afraid as if something awful might happen: 0 = Not at all Total MARY-7 score (0-4 normal; 5-9 mild; 10-14 moderate; 15-21 severe): 0 Source: Developed by Drs. Jose Etienne, Luz Falcon, Henrik Hernandez and colleagues, with an educational miesha from [employer]. Review of Systems Const Denies chills, Denies fatigue, Denies fever(s), Denies frequent falls, Denies weakness, Denies weight gain and Denies weight loss Eyes Reports as per HPI and Reports no additional complaints ENT Denies dizziness Card Denies chest pain at rest, Denies irregular heart rhythm, Denies leg edema, Denies lightheadedness, Denies palpitations, Denies dyspnea and Denies dyspnea on exertion Resp Denies cough, Denies dyspnea and Denies dyspnea on exertion GI Denies abdominal pain, Denies melena, Denies hematochezia, Denies change in bowel habits, Denies change in stool character and Reports heartburn (Controlled on omeprazole) Reports no additional complaints Musc Denies abnormal gait, Denies muscle weakness, Denies numbness, Denies radiating pain into limb and Denies tingling Skin/Breast Denies breast pain, Denies breast mass, Denies lesions, Denies rash and Denies unusual bruising Neuro Denies abnormal gait, Denies dizziness, Denies frequent falls, Denies numbness, Denies tingling and Denies weakness Psych Reports no additional complaints Endo Denies fatigue and Denies palpitations David/Lymph Reports easy bruising Aller/Immun Reports no additional complaints Physical exam (Primary Care) Vital Signs: Last Vital Signs Pulse 88 09/03/24 09:52 BP 135/86 09/03/24 09:52 Pulse Ox 95 09/03/24 09:52 Oxygen Delivery Method Room Air 09/03/24 09:52 BMI result Body Mass Index 37.9 Tobacco/Smoking Status: Tobacco use Status Tobacco use date assessed 09/03/24 09/03/24 10:00 Patient Tobacco Use Status Former Tobacco user 09/03/24 09:54 Tobacco use type 02/13/23 15:56 e-Cigarette/Vaping Use Never Used 09/03/24 09:54 Thrive Assessment: Date of Thrive Assessment Date Thrive assessed 06/03/24 09/03/24 09:54 Currently or been in a relationship where the following occur: No concerns reported Const General: no acute distress and alert Nutritional Appearance: obese Orientation/consciousness: patient oriented x3 [facility] Other: Normocephalic, atraumatic General nose exam: Normal external nose present and No nasal discharge present Face and sinus: Yes face symmetric Mouth: Normal oral and palatal mucosa present and moist mucous membranes Teeth and gingiva: edentulous Eyes General: appearance normal, both eyes and all related structures Neck Neck: Yes full ROM, Yes no lymphadenopathy and Yes supple Chest Chest palpation & inspection: normal inspection of the chest and normal palpation of entire chest wall Breast/axilla palpation: normal palpation of the breasts Resp Effort & Inspection: normal respiratory effort and able to speak in complete sentences Auscultation: clear to auscultation bilaterally Cardio Other: S1-S2 present regular rate and rhythm GI Palpation (GI): Soft to palpation, nontender, no guarding and no masses General: Yes no CVA tenderness Back/Spine/Pelvis Back: no CVA tenderness and No back tenderness Skin General skin exam: no rashes or lesions noted Neuro General: patient oriented x3, Normal light touch and pain sensation, no focal motor deficits and CN's II-XI intact bilaterally Extrem General: Yes full ROM, Yes no joint enlargement, Yes no clubbing, cyanosis or edema, Yes no pedal edema, Yes no calf tenderness and Yes normal gait Psych Appearance: grossly normal and well kempt Mental Status: mental status grossly normal Speech and movement: Normal speech and movement present Affect: normal affect Attitude: cooperative Thought process: Normal thought process present Results Reviewed Results Reviewed: Name: Ya Cameron Age/Sex: 64/F : 1960 Unit#: [id number] Attend Dr: Flakita Calero MD Re08/27/24 Status: REG REF Location: [facility] Disch: SPEC : [id number] DELFINO: 08/27/24 STATUS: COMP REQ : [id number] RECD: 08/27/24 [facility] DR: Flakita Calero MD COMP: 08/27/24 ENTERED: 08/27/[address] [facility] [address]: ORDERED: CBC Auto Diff Test Result Flag Reference WBC 5.9 4.8-10.8 X10*3/uL RBC 4.50 4.20-5.50 X10*6/uL HGB 12.8 12.0-16.0 g/dl HCT 39.1 37.0-47.0 % MCV 86.9 80.0-98.0 fL MCH 28.4 27.0-33.0 pg MCHC 32.7 31.0-35.0 g/dl RDW 14.0 11.0-16.0 % PLT 293 160-400 X10*3/uL MPV 9.8 9.4-12.3 fL Neut Pct Auto 56.8 45-73 % ImGran Pct Auto 0.3 0.0-0.4 % Lymp Pct Auto 34.7 20-40 % [place] Pct Auto 6.1 2-11 % Eos Pct Auto 1.4 0-4 % Baso Pct Auto 0.7 0-2 % NRBC Pct Auto 0.0 0.0-0.2 /100WBC ANC Neut Abs # 3.4 2.0-8.3 x10*3/uL ImGran Abs Auto 0.02 0.00-0.03 X10*3/uL Lymph Abs Auto 2.1 1.2-4.9 X10*3/uL [place] Abs Auto 0.4 0.1-1.2 X10*3/uL Eos Abs Auto 0.1 0.0-0.4 X10*3/uL Baso Abs Auto 0.0 0.0-0.2 X10*3/uL NRBC Abs Auto 0.000 0.0-0.012 X10*3/uL Name: Ya Cameron Age/Sex: 64/F : 1960 Unit#: [id number] Attend Dr: Flakita Calero MD Re08/27/24 Status: REG REF Location: [facility] Disch: SPEC : [id number] DELFINO: 08/27/24 STATUS: COMP REQ : [id number] RECD: 08/27/24 [facility] DR: Flakita Calero MD COMP: 08/27/24 ENTERED: 08/27/[address] [facility] [address]: ORDERED: Met Prof Fast, IRON PROF, AST, ALT, Lipid Panel, Vitamin D 25-OH Test Result Flag Reference Sodium 137 135-145 mmol/L Potassium 3.9 3.3-5.1 mmol/L CL 105 96-108 mmol/L CO2 23 22-29 mmol/L Gap 13 12-20 BUN 6 L 9-16 mg/dL Creat 0.85 0.5-1.4 mg/dL eGFR > 60 Chronic Kidney Disease: Estimated GFR < 60 mL/min/1.73m2 Severe Kidney Disease: Estimated GFR < 15 mL/min/1.73m2 FBS 190 H 60-99 mg/dL A fasting glucose of 126 mg/dl or greater on more than one occasion is considered diagnostic of diabetes. CA 9.2 8.4-10.2 mg/dL Iron 84 30-160 mcg/dL TIBC 306 228-428 mcg/dL Saturation 27 15-50 % UIBC 222 ug/dL AST (GOT) 43 H 5-31 U/L ALT (GPT) 49 H 0-31 U/L Triglyceride 148 <150 mg/dL Desirable Triglyceride: less than 150 mg/dL Borderline High Triglyceride 150-199 mg/dL High Triglyceride: 200-499 mg/dL Very High Triglyceride: greater than or equal to 5OO mg/dL Cholesterol 148 <200 mg/dL Desirable Cholesterol: less than 200 mg/dL Borderline High Cholesterol: 200-239 mg/dL High Cholesterol: greater than 239 mg/dL LDL Calculated 80 <100 mg/dL Desirable LDL: less than 100 mg/dL Near Optimal/Above Optimal LDL: 110-129 mg/dL Borderline High LDL: 130-159 mg/dL High LDL: 160-189 mg/dL Very High LDL: greater than or equal to 190 mg/dL HDL 39 L >40 mg/dL Desirable HDL: greater than 40 mg/dL Note: This HDL assay may give artificially low results in patients with liver disease. Vit D 25-OH Tot 33.0 >30 ng/mL Health Based Reference Values* < 20 ng/mL Deficient 20-30 ng/mL Insufficient > 30 ng/mL Sufficient Laboratory Tests 06/03/24 08/27/24 08/27/24 09:22 08:55 08:56 Estimat Average Glucose 169 Hgb A1c (Clinic) 6.5 H Hemoglobin A1c % 7.5 H Urine Creatinine 112.10 Urine Microalbumin 24.0 Microalb/Creat Ratio 21.4 Coding Level of Care Code Est Pt Level 4 (79957) Complex EM visit Add On G2211 Diagnoses Preoperative examination Z01.818 Dyslipidemia E78.5 Essential hypertension I10 Current use of intermodal dispatcher anticoagulation Z79.01 GERD (gastroesophageal reflux disease) K21.9 Type 2 diabetes mellitus with hyperglycemia, without long-term current use of insulin E11.65 Atypical chest pain R07.89 Assessment & Plan Assessment & Plan (1) Preoperative examination: Code(s): Z01.818 - Encounter for other preprocedural examination Category: Medical Plan: Reviewed last latest EKG which showed normal sinus rhythm with no acute ST-T changes, QT prolongation seen up, unchanged from previous EKGs. Recent labs are within normal limits except for her higher hemoglobin A1c at 7.5%. Preop exam is unremarkable. Currently anticoagulated with apixaban. Will coordinate with bulldozer engineer whether to hold Eliquis prior to bilateral upper eyelids blepharoplasty , bilateral upper eyelid ptosis repair, and bilateral temporal brow lift scheduled for procedure scheduled for 09/24/2024, requested by Dr. Musa at [facility]. (2) Dyslipidemia: Code(s): E78.5 - Hyperlipidemia, unspecified Category: Medical (3) Essential hypertension: Comment: currently under control without meds for a few yrs. Code(s): I10 - Essential (primary) hypertension Category: Medical (4) Current use of intermodal dispatcher anticoagulation: Code(s): Z79.01 - care home (current) use of anticoagulants Category: Medical (5) GERD (gastroesophageal reflux disease): Code(s): K21.9 - Gastro-esophageal reflux disease without esophagitis Category: Medical (6) Type 2 diabetes mellitus with hyperglycemia, without long-term current use of insulin: Code(s): E11.65 - Type 2 diabetes mellitus with hyperglycemia Category: Medical (7) Atypical chest pain: Code(s): R07.89 - Other chest pain Category: Medical Plan: Latest EKG and a 30 day cardiac event monitor done recently showed Underlying rhythm is sinus with an average rate of 78/Min. Rare supraventricular ectopy. Rare ventricular ectopy. No significant pauses or high-grade AV blocks. patient has an appointment with Cardiology in 2 days further evaluation Plan -will coordinate with Hematology whether to hold Eliquis prior to scheduled surgery on 09/24 -reviewed recent fasting labs which showed elevated hemoglobin A1c. Begin taking metformin twice daily as directed, with meals. Will continue on atorvastatin 40 mg daily with goal LDL less than 70 mg/dL. Reinforced importance of following recommended diet. Continue on amlodipine 5 mg daily for blood pressure control - Stop taking Vitamin B12 supplements immediately due to recent elevated B12 level - Continue current COPD management as prescribed. - Engage with cognitive exercises like puzzles regularly. - Schedule a general health physical examination for the following year. -keep appointment with Cardiology on 09/05/2024 for follow-up - continued on omeprazole 40 mg at bedtime - continued on buspirone and fluoxetine for control of generalized anxiety disorder -schedule appointment with me in 3 months after fasting labs done to follow-up on her diabetes mellitus, and dyslipidemia
== END 2024-09-03 10:47 | disposition home or self-care (01) ==
PROVIDERS: PCP Internal Medicine; Visit Provider Internal Medicine
DX: E11.65 Type 2 diabetes mellitus with hyperglycemia (principal); E78.5 Hyperlipidemia, unspecified; Z01.818 Encounter for other preprocedural examination; I10 Essential (primary) hypertension; Z79.01 Long term (current) use of anticoagulants; K21.9 Gastro-esophageal reflux disease without esophagitis; R07.89 Other chest pain

== ENCOUNTER → 2024-09-03 09:49 | Outpatient (BNVA) | payer MEDICARE, OTHER, SELFPAY | PROVIDERS: PCP Internal Medicine; Visit Provider Internal Medicine | DX: Z01.818 Encounter for other preprocedural examination (principal); E11.65 Type 2 diabetes mellitus with hyperglycemia; F41.1 Generalized anxiety disorder; I10 Essential (primary) hypertension; E78.5 Hyperlipidemia, unspecified; I26.99 Other pulmonary embolism without acute cor pulmonale; K21.9 Gastro-esophageal reflux disease without esophagitis; R07.89 Other chest pain; Z79.84 Long term (current) use of oral hypoglycemic drugs; Z79.01 Long term (current) use of anticoagulants | CPT/HCPCS: 99212 ==

== ENCOUNTER 2024-09-05 09:32 | Outpatient (AMB) | payer MEDICARE, OTHER, SELFPAY ==
[2024-09-05 09:37] VITALS: BP 120/84; PULSE 88; BMI 38.3
--- NOTE | 2024-09-05 09:37 | MHC.OFFVIS ---
Vital Signs 09/05/24 09:37 Height 5 ft 2 in Weight 209 lb 7.026 oz BMI 38.3 BP 120/84 Blood Pressure Location Lt brachial Position Sitting Pulse 88 Intake Visit Reasons: 1 yr f/up Intake Note: 1 year follow-up [facility] ekg c/o some chest pain lasting a few minute at rest Insulation Manager Required: No Allergies Iodinated Contrast Media [IV CONTRAST] Adverse Reaction (Intermediate, Verified 09/03/24 10:33) Rash capsaicin Adverse Reaction (Verified 09/03/24 10:33) Rash perflutren [From Definity] Adverse Reaction (Verified 09/03/24 10:33) Back Pain Medication List - Last Reconciled 09/05/24 by Tawanda Reyes MD amlodipine 5 mg PO DAILY apixaban (Eliquis) 5 mg PO BID atorvastatin 40 mg PO BEDTIME benzonatate 100 mg PO TID buspirone 5 mg PO BID cetirizine 10 mg PO DAILY fluoxetine 40 mg (2 x 20 mg) PO DAILY metformin 500 mg PO BID omeprazole 40 mg PO QPM tolterodine ER 4 mg PO DAILY trazodone 100 mg PO BEDTIME HPI Comments Details: Ya comes for follow-up. Patient says over the last few months she has been having increasing symptoms of precordial chest pain which happens mostly at rest. She has not had any stressful situation. Does not happen with exertion. Symptoms last for 5 minutes. Symptoms are not reproducible by touch with deep breathing. She is concerned about the symptoms. She denies any prolonged palpitation irregular heartbeat. She said her recent diabetes control was inadequate with hemoglobin A1c up to 7.5. Blood pressure is generally well controlled. She denies any lightheadedness, syncope. Denies any heart failure symptoms. 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 History of abnormal cervical Pap smear Anemia Type 2 diabetes mellitus without complication, without long-term current use of insulin Prolapse of female pelvic organs Prepatellar bursitis Primary hypertension Generalized anxiety disorder COPD (chronic obstructive pulmonary disease) History of COVID-19 Depression, major, recurrent, in complete remission Herpes zoster Left shoulder tendinitis GERD (gastroesophageal reflux disease) Calcaneal spur of left foot Arthritis of first metatarsophalangeal (MTP) joint of left foot Deviated nasal septum History of pulmonary embolism History of thyroid cancer Essential hypertension Dyslipidemia Surgical History History of fusion of cervical spine Status post open reduction and internal fixation (ORIF) of fracture (~09/16/23) Hx of left breast biopsy History of partial thyroidectomy History of surgery History of cervical spinal surgery History of shoulder surgery History of colonoscopy History of tubal ligation H/O spinal fusion Family History Father Alcoholism Mother HTN (hypertension) Hyperlipidemia CVD (cardiovascular disease) Sister Hyperlipidemia Alcoholism Substance use disorder Brother No problems noted. Sister No problems noted. Sister No problems noted. Sister No problems noted. Daughter No problems noted. Daughter No problems noted. 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 Social History Household Members: Significant Other Household Members Other:: 2 Housing: Apartment Do you presently have visiting nurse or other home services: No Alcohol intake: never Patient Tobacco Use Status: Former Tobacco user Years Smoked: 4 yrs e-Cigarette/Vaping Use: Never Used Second Hand Smoke Exposure: No Advance Directives Date on File: 11/08/22 service: No Current occupational status: disabled Cognitive needs: No Hearing needs: No Vision needs: Yes Review of Systems Const Denies chills, Denies fatigue, Denies fever(s), Denies frequent falls, Denies weakness, Denies weight gain and Denies weight loss ENT Denies dizziness Card Denies chest pain, Denies leg edema, Denies lightheadedness, Denies palpitations, Denies dyspnea, Denies dyspnea on exertion, Denies orthopnea and Denies other (loss of consciousness) Resp Denies cough, Denies dyspnea and Denies dyspnea on exertion GI Denies hematochezia and Denies change in stool character Musc Denies abnormal gait, Denies muscle weakness, Denies numbness, Denies radiating pain into limb and Denies tingling Neuro Denies abnormal gait, Denies dizziness, Denies frequent falls, Denies numbness, Denies tingling and Denies weakness Endo Denies fatigue and Denies palpitations Physical Exam Vital Signs: Last Vital Signs Pulse 88 09/05/24 09:37 BP 120/84 09/05/24 09:37 BMI result Body Mass Index 38.3 Const General: cooperative, healthy appearing, comfortable and no acute distress Orientation/consciousness: patient oriented x3 Neck Neck: Yes normal visual inspection and Yes no JVD Resp Effort & Inspection: normal respiratory effort Auscultation: clear to auscultation bilaterally, no crackles, no rales, no rhonchi and no wheezes Cardio Jugular venous distension: no JVD Rate: regular rate Rhythm: regular rhythm Heart sounds: S1 normal heart sound present, S2 normal heart sound present, no murmurs and no rubs GI Inspection: Yes normal to inspection Neuro General: patient oriented x3 Extrem General: Yes normal to inspection and No no pedal edema Psych Appearance: grossly normal Mental Status: mental status grossly normal Speech and movement: Normal speech and movement present Office Procedures EKG Details: EKG shows normal sinus rhythm with poor R-wave progression most likely lead placement with nonspecific T-wave changes [id number], Complete Assessment & Plan Assessment & Plan (1) Atypical chest pain: Code(s): R07.89 - Other chest pain Plan: Patient with new onset symptoms of precordial chest pain with atypical symptoms mostly happening at rest although she can not exercise much due to her arthritis and spine issues. She was multiple risk factors for coronary disease including hypertension, diabetes, hyperlipidemia. Will suggest a vasodilating myocardial perfusion imaging to further evaluate for this chest pain syndrome. If this is negative alternative etiology such as acid reflux disease needs to be pursued. Further treatment based on the findings of the stress test. (2) Essential hypertension: Comment: currently under control without meds for a few yrs. Code(s): I10 - Essential (primary) hypertension Category: Medical Plan: Hypertension which is currently well optimized advised to monitor blood pressure at home maintain a log. Goal blood pressure less than 130/84. Continue current therapy. Importance of good blood pressure control was discussed. Continue aggressive diabetes management, hemoglobin A1c less than 7%. Consider addition of either SGLT2 or GLP 1 antagonist to her regimen to improve cardiovascular risk profile. Lipids are well optimized. Continue statin therapy. Target goal LDL less than 70 mg/dL. Will follow up in the clinic in 2 years time, sooner p.r.n.. Thank you for allowing me to partake in his care Orders: Orders CA lexiscan stress w carl Today Tawanda Amy, MD R07.89 - Other chest pain Medications: Changed From metformin 500 mg PO DAILY 90 tabs 1RF To metformin 500 mg PO BID Flakita Calero MD Coding Level of Care Code Est Pt Level 4 (91205) Complex EM visit Add On G2211 Diagnoses Atypical chest pain R07.89 Essential hypertension I10 CPT Codes EKG - CPT: 59925-[id number], Complete ([id number])
== END 2024-09-05 10:05 | disposition home or self-care (01) ==
PROVIDERS: PCP Internal Medicine; Visit Provider Internal Medicine Cardiovascular Disease
DX: R07.89 Other chest pain (principal); I10 Essential (primary) hypertension
CPT/HCPCS: 93010; 99214; G2211

== ENCOUNTER → 2024-09-05 09:32 | Outpatient (BNVA) | payer MEDICARE, OTHER, SELFPAY | PROVIDERS: PCP Internal Medicine; Visit Provider Internal Medicine Cardiovascular Disease | DX: R07.2 Precordial pain (principal); I10 Essential (primary) hypertension; Z87.891 Personal history of nicotine dependence | CPT/HCPCS: 93005; 99212 ==

== ENCOUNTER 2024-11-04 07:15 | Outpatient (REF) | payer MEDICARE, OTHER, SELFPAY ==
--- NOTE | ~2024-11-04 | XR_ITS ---
EXAMINATION: XR TIBIA AND FIBULA, LEFT CLINICAL INFORMATION: Unspecified fracture of shaft of left tibia. COMPARISON: 08/01/2024. TECHNIQUE: AP and lateral views of the left tibia and fibula were obtained. FINDINGS: There is a near completely healed appearing healed oblique distal tibial fracture. The fracture line can still be visualized on the lateral projection although appears there is further sclerosis and blunting when compared with the prior. Findings are consistent with continued healing. Stable alignment. There is a near completely healed appearing distal fibular metadiaphyseal fracture. The fracture line is also still visualized on the lateral projection although appears there is further sclerosing of blunting. Stable alignment. Both medial and lateral plate and screw constructs in place without evidence of loosening or complication. There is a syndesmosis stabilizing screw. No soft tissue abnormality. XR/XR tibia fibula LT 2V IMPRESSION: 1. Continued, Near-complete healing of distal tibial fracture. 2. Continued, Near-complete healing of distal fibular fracture. 3. No hardware complication. Electronically signed by: Yaya Zavaleta MD 11/05/2024 10:47 AM ASHISH SHELLEY
--- OUTSIDE RECORDS SUMMARY | 2024-11-04 07:18 | XMS_ITS | Data Portability ---
Author Organization [facility] Pain Managem ent, PAIN OFFICE Address [address] [facility] [address] [address] [place] [address] Care Team Providers Care Special Events Fundraiser Name Role Phone LIZ LOPEZ Primary Care Provider SARAH CLAY Referring Provider [phone] Assessment Encounter Date Assessment Date Assessment LastModified by Organization Details LastModified Time 12/28/2020 12/28/2020 Ya cameron year old woman with neck pain radiating into right upper back. She has myofascial pain syndrome in her right upper back. Trial of trigger point injection under ultrasound guidance were discussed with her. The risks and benefits of the procedure were discussed and he wishes to proceed and an appointment has been made for the same. She will fax the results of the imaging studies done at [facility]. [email or web address] Not available 12/29/2020 08:21:00 06/29/2021 06/29/2021 Ya Cameron is a 61 year old woman with low back pain radiating into the both lower extremities, left is greater than right. On exam ,she has pain on flexion. Straight leg raising test is positive on the left. MRI Lumbar spine shows L3-L5 posterior disc bulging with a small L4-5 central annular tear dis herniation. Facet arthropathy at Left L4-5 and L5-S1 levels. She is here for a Lumbar epidural steroid injections under fluoroscopic guidance . The risks and benefits of the procedure were discussed in detail. She wishes to proceed. She can follow up in four weeks. [email or web address] Not available 06/29/2021 13:57:04 08/09/2021 08/09/2021 Ya Cameron is a 61 year old woman with low back pain radiating into the both lower extremities, left is greater than right. On exam ,she has pain on flexion. Straight leg raising test is positive on the left. MRI Lumbar spine shows L3-L5 posterior disc bulging with a small L4-5 central annular tear disc herniation. Facet arthropathy at Left L4-5 and L5-S1 levels. This is a follow up after a trial of Lumbar epidural steroid injections under fluoroscopic guidance .She reports 70-80% pain benefit which is ongoing. She has stiffness in the morning which improves with stretching. She is walking better . She can follow up as needed. [email or web address] Not available 08/09/2021 13:15:14 01/12/2022 01/12/2022 Ya Cameron is 61 year old woman with left shoulder pain for the past few years . On exam ,she has pain on abduction and limited range of motion of her left shoulder. MRI left shoulder shows mild supraspinatus tendonitis and minimal distal inferior spinatus calcific tendonitis. Mild glenohumeral arthritis. I recommend a trial of Left shoulder steroid injections under? ? ?ultrasound guidance . The risks and benefits of the procedure? ? ? were discussed in detail. She wishes to proceed. An appointment has been made for the same. 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 She is a diabetic. Blood sugar levels may temporarily increase after steroid injections. She was advised to check her blood glucose levels three times a day post procedure. If her levels are above 250, She was advised to contact her PCP. yared Not available 01/15/2022 10:58:35 01/24/2022 01/24/2022 Ya Cameron is 61 year old woman with left shoulder pain for the past few years . On exam ,she has pain on abduction and limited range of motion of her left shoulder. MRI left shoulder shows mild supraspinatus tendonitis and minimal distal inferior spinatus calcific tendonitis. Mild glenohumeral arthritis. She is here for a trial of Left shoulder steroid injections under? ? ?ultrasound guidance . The risks and benefits of the procedure? ? ? were discussed in detail. She wishes to proceed. She is a diabetic. Blood sugar levels may temporarily increase after steroid injections. She was advised to check her blood glucose levels three times a day post procedure. If her levels are above 250, She was advised to contact her PCP. She will follow up after seeing the orthopedic surgeon. [email or web address] Not available 01/24/2022 16:08:56 Plan of Treatment Reminders Order Date Submit Date Provider Last Modified By Organization Details Last Modified Time Details Appointments None record ed. Lab None record ed. Referral None record ed. Procedures None record ed. Surgeries None record ed. Imaging None record ed. Medication Orders None record ed. Patient TargetsNo targets recorded. Patient Instructions Encounter Date Encounter Id Patient Instructions Last Modified By Organization Details Last Modified Time 12/28/2020 [id number] Telehealth visit: The patient was located at home for this telephone electronic visit and gave consent for this visit to be conducted via telehealth. 15 minutes was spent on this call and greater than 50% of the visit was spent on counseling and coordination of care [email or web address] Not available 12/29/2020 08:16:48 06/29/2021 [id number] She was advised against bed rest lasting longer than four days and to continue activities as tolerated. [email or web address] Not available 06/29/2021 13:50:55 08/09/2021 [id number] She was advised against bed rest lasting longer than four days and to continue activities as tolerated. Telehealth visit: The patient was located at home for this telephone electronic visit and gave consent for this visit to be conducted via telehealth. 15 minutes was spent on this call and greater than 50% of the visit was spent on counseling and coordination of care. [email or web address] Not available 08/09/2021 11:56:59 01/12/2022 [id number] She was advised against bed rest lasting longer than four days and to continue activities as tolerated. [email or web address] Not available 01/15/2022 10:55:55 01/24/2022 [id number] She was advised against bed rest lasting longer than four days and to continue activities as tolerated. [email or web address] Not available 01/24/2022 16:06:51 Reason for Referral None Reported. Problems Name Problem SNOMED Code Status Onset Date Resolution Date Notes Provider Name and Address Organization Details Recorded Time Degeneration of lumbar intervertebral disc 74354760 Geovanna farfan MD [address] [facility] , [address], [facility] [place], [address] , [place] [facility] 11:51:41 Lumbar radiculopathy [id number] Geovanna farfan MD [address] , [address], [facility] [place], [address], [place] [facility] 9 11:53:15 Lumbosacral spondylosis without myelopathy 51422927 Active Jagruti farfan MD [address] , [address], [place], [address], [place] [facility] 9 11:53:34 Degeneration of cervical intervertebral disc 97883915 Active Jagruti farfan MD [address] [facility] , [address], [facility] [place], [address], [place] [facility] 9 09:02:31 Muscle pain 28129202 Active Jagruti farfan MD [address] [facility] , [address], [facility] [place], [address], [place] [facility] 9 09:02:41 Problem Notes None recorded. Procedures Surgical History Date Name Laterality Status Provider Name and Address Organization Details Recorded Time 01/25/20 22 Intra-articular shoulder steroid injection under ultrasound guidance completed Jagruti Elizabeth MD [address] [facility] , [address], [place], [address], [place] [facility] 01/24/2022 16:06:02 06/29/20 21 Lumbar Epidural steroid injection under fluoroscopic guidance completed Jagruti Elizabeth MD [address] [facility] , [address], [place], [address], [place] [facility] 06/29/2021 13:51:52 07/21/20 20 Lumbar Epidural steroid injection under fluoroscopic guidance completed Jagruti Elizabeth MD [address] [facility] , [address], [place], [address], [place] [facility] 07/21/2020 15:54:12 10/23/19 20 Lumbar Epidural steroid injection under fluoroscopic guidance completed Jagruti Elizabeth MD [address] [facility] , [address], [place], [address], [place] [facility] 10/23/2019 14:39:47 05/30/20 19 Trigger Point Injections under ultrasound guidance completed Jagruti Elizabeth MD [address] , [address], [place], [address], [place] [facility] 05/30/2019 13:31:49 05/15/20 19 Trigger Point Injections under ultrasound guidance completed Jagruti Elizabeth MD [address] [facility] , [address], [place], [address], [place] [facility] 05/15/2019 14:15:41 04/02/20 19 Lumbar Epidural steroid injection under fluoroscopic guidance completed Jagruti Elizabeth MD [address] [facility] , [address], [place], [address], [place] [facility] 04/03/2019 08:35:11 10/09/19 19 Lumbar Epidural steroid injection under fluoroscopic guidance completed Jagruti Elizabeth MD [address] [facility] , [address], [place], [address], [place] [facility] 10/09/2018 10:55:22 Other completed Sara Hurt [place] [facility] 09/14/2018 09:40:06 Arthroscopic Surgery completed Sara Hurt [place] [facility] 09/14/2018 09:39:00 Arthroscopic Surgery completed Sara Hurt [place] [facility] 09/14/2018 09:39:16 Thyroid Surgery completed Sara Hurt [place] [facility] 09/14/2018 09:42:26 Imaging Results None recorded. Procedure Notes None recorded. Medical Equipment None Reported. Allergies Allergen ID Allergen Name Allergen Category Reaction Reaction Severity Criticality Documentation Date Start Date Code Code System Note Provider Name and Address Organization Details Recorded Time 91642 Iodinated contrast media (substanc e) medicatio n rash Not available Not available 09/14/2018 78525 2004 SNOMED < great er 20 years ago Sara giordano [place] - [facility] 9 09:24:06 Medications Name Sig Start Date Stop Date Status Note LastModified by Organization Details LastModified Time lidoc/antac /aller SWISH, GARGLE AND SPIT 1 TO 2 TEASPOONS FUL FOR ONE MINUTE EVERY 6 HOURS AND REPEAT NEEDED. SHAKE BOTTLE BEFORE USE. 06/29 completed Not Available Not Available Not Available lidoc/aller /cb USE 10 ML'S IN MOUTH EVERY 4 HOURS DIRECTED 07/21 completed Not Available Not Available Not Available quetiapine 25 mg tablet 09/14 completed Not Available Not Available Not Available celecoxib 200 mg capsule TAKE ONE CAPSULE BY MOUTH EVERY DAY active Not Available Not Available No t Available cyclobenzap rine 10 mg tablet TAKE ONE TABLET BY MOUTH THREE TIMES A DAY FOR MUSCLE SPASM 01/12 completed Not Available Not Available Not Available atorvastati n 40 mg tablet TAKE ONE TABLET BY MOUTH EVERY DAY active Not Available Not Available No t Available metformin 500 mg tablet TAKE ONE TABLET BY MOUTH ONCE DAILY active Not Available Not Available No t Available atorvastati n 80 mg tablet every other day 06/30 completed Not Available Not Available Not Available nystatin 100,000 unit/mL oral suspension 03/26 completed Not Available Not Available Not Available oxybutynin chloride ER 15 mg tablet,exte nded release 24 hr TAKE ONE TABLET BY MOUTH EVERY DAY 01/12 completed Not Available Not Available Not Available doxycycline hyclate 100 mg capsule TAKE ONE CAPSULE BY MOUTH TWICE A DAY FOR 10 DAYS 12/28 completed Not Available Not Available Not Available trazodone 50 mg tablet 09/14 completed Not Available Not Available Not Available oxybutynin chloride ER 10 mg tablet,exte nded release 24 hr 09/14 completed Not Available Not Available Not Available azithromyci n 250 mg tablet TAKE 2 TABLETS ON FIRST DAY , THEN 1 TABLET DAILY FOR 4 DAYS 01/12 completed Not Available Not Available Not Available cefpodoxime 100 mg tablet TAKE TWO TABLETS (200 MG) BY MOUTH TWO TIMES A DAY WITH FOOD FOR 5 DAYS 01/12 completed Not Available Not Available Not Available ibuprofen 800 mg tablet TAKE ONE TABLET BY MOUTH EVERY 8 HOURS NEEDED FOR PAIN active Not Available Not Available No t Available Lidocaine Viscous 2 % mucosal solution 01/12 completed Not Available Not Available Not Available tizanidine 4 mg tablet 04/02 completed Not Available Not Available Not Available benzonatate 200 mg capsule 09/14 completed Not Available Not Available Not Available valacyclovi r 1 gram tablet TAKE ONE TABLET BY MOUTH EVERY 8 HOURS FOR 7 DAYS 01/12 completed Not Available Not Available Not Available hydrocodone 5 mg-acetamin ophen 325 mg tablet TAKE ONE TABLET BY MOUTH EVERY 8 HOURS NEEDED FOR PAIN active Not Available Not Available No t Available prednisone 20 mg tablet TAKE TWO TABLETS BY MOUTH ONCE DAILY 01/12 completed Not Available Not Available Not Available prednisone 5 mg tablet 06/30 completed Not Available Not Available Not Available butalbital 50 mg-acetamin ophen 325 mg tablet 03/26 completed Not Available Not Available Not Available sulfamethox azole 800 mg-trimetho prim 160 mg tablet 10/23 completed Not Available Not Available Not Available omeprazole 40 mg capsule,del ayed release TAKE ONE CAPSULE BY MOUTH TWICE A DAY active Not Available Not Available No t Available tramadol 50 mg tablet 09/14 completed Not Available Not Available Not Available oxycodone-a cetaminophe n 5 mg-325 mg tablet TAKE ONE TABLET BY MOUTH EVERY 4 TO 6 HOURS NEEDED FOR PAIN (PAIN SCALE 4-6) FOR 7 DAYS active Not Available Not Available No t Available hydromorpho ne 2 mg tablet 09/14 completed Not Available Not Available Not Available trazodone 100 mg tablet TAKE ONE TABLET BY MOUTH AT BEDTIME active Not Available Not Available No t Available baclofen 10 mg tablet 09/14 completed Not Available Not Available Not Available benzonatate 100 mg capsule 10/23 completed Not Available Not Available Not Available hydrocodone 7.5 mg-acetamin ophen 325 mg tablet 06/30 completed Not Available Not Available Not Available pantoprazol e 40 mg tablet,lindsey yed release 11/08 completed Not Available Not Available Not Available cyanocobala min (vit B-12) 1,000 mcg/mL injection solution INJECT INTRAMUSC ULARLY ONCE A WEEK FOR 4 WEEKS,THE N ONCE MONTHLY 01/12 completed Not Available Not Available Not Available ferrous sulfate 325 mg (65 mg iron) tablet TAKE ONE TABLET BY MOUTH EVERY DAY 03/26 completed Not Available Not Available Not Available nitrofurant oin macrocrysta l 100 mg capsule TAKE ONE CAPSULE BY MOUTH EVERY 12 HOURS FOR 10 DAYS MUST TAKE WITH FOOD 01/12 completed Not Available Not Available Not Available clotrimazol e-betametha sone 1 %-0.05 % topical cream APPLY TO AFFECTED AREA(S) TWO TIMES A DAY FOR 4 WEEKS 06/29 completed Not Available Not Available Not Available lisinopril 10 mg tablet 09/14 completed Not Available Not Available Not Available lidocaine 5 % topical patch APPLY ONE PATCH TOPICALLY DAILY LEAVE ON MOST PAINFUL AREA FOR UP TO 12 HOURS 01/12 completed Not Available Not Available Not Available losartan 25 mg tablet 09/14 completed Not Available Not Available Not Available fluoxetine 10 mg capsule TAKE THREE CAPSULES BY MOUTH EVERY MORNING 06/30 completed Not Available Not Available Not Available gabapentin 300 mg capsule TAKE ONE CAPSULE BY MOUTH AT BEDTIME 01/12 completed Not Available Not Available Not Available omeprazole 20 mg capsule,del ayed release TAKE ONE CAPSULE BY MOUTH TWICE A DAY 06/30 completed Not Available Not Available Not Available hydroxyzine HCl 25 mg tablet 09/14 completed Not Available Not Available Not Available codeine 10 mg-guaifene sin 100 mg/5 mL oral liquid 10/23 completed Not Available Not Available Not Available lisinopril 5 mg tablet 09/14 completed Not Available Not Available Not Available furosemide 20 mg tablet 06/30 completed Not Available Not Available Not Available metoprolol succinate ER 25 mg tablet,exte nded release 24 hr 09/14 completed Not Available Not Available Not Available ibuprofen 600 mg tablet TAKE ONE TABLET BY MOUTH EVERY 8 HOURS NEEDED PAIN active Not Available Not Available No t Available albuterol sulfate HFA 90 mcg/actuati on aerosol inhaler INHALE TWO PUFFS BY MOUTH EVERY 6 HOURS NEEDED FOR SHORTNESS OF BREATH 01/12 completed Not Available Not Available Not Available ondansetron 4 mg disintegrat ing tablet DISSOLVE ONE TABLET BY MOUTH EVERY 6 TO 8 HOURS NEEDED FOR NAUSEA AND VOMITING 12/28 completed Not Available Not Available Not Available cefdinir 300 mg capsule 07/21 completed Not Available Not Available Not Available piroxicam 20 mg capsule TAKE ONE CAPSULE BY MOUTH EVERY DAY WITH FOOD 01/12 completed Not Available Not Available Not Available fluoxetine 20 mg capsule TAKE TWO CAPSULES BY MOUTH EVERY DAY active Not Available Not Available No t Available doxycycline hyclate 100 mg tablet TAKE ONE TABLET BY MOUTH TWICE A DAY FOR 7 DAYS 01/12 completed Not Available Not Available Not Available naproxen 500 mg tablet TAKE ONE TABLET BY MOUTH TWICE A DAY NEEDED FOR PAIN 06/29 completed Not Available Not Available Not Available amoxicillin 875 mg-potassiu m clavulanate 125 mg tablet TAKE 1 TABLET BY MOUTH TWICE A DAY FOR 7 DAYS 06/29 completed Not Available Not Available Not Available amoxicillin 500 mg-abisaiu m clavulanate 125 mg tablet 09/14 completed Not Available Not Available Not Available oxycodone 5 mg tablet 06/30 completed Not Available Not Available Not Available cyclobenzap rine 5 mg tablet TAKE ONE TABLET BY MOUTH AT BEDTIME NEEDED FOR MUSCLE SPASMS 06/29 completed Not Available Not Available Not Available hydrocodone 10 mg-acetamin ophen 300 mg tablet TAKE ONE TABLET BY MOUTH EVERY 6 HOURS NEEDED FOR PAIN 08/17 completed Not Available Not Available Not Available nitrofurant oin monohydrate /macrocryst als 100 mg capsule 06/30 completed Not Available Not Available Not Available cholecalcif jadyn (vitamin D3) 1,250 mcg (50,000 unit) capsule TAKE ONE CAPSULE BY MOUTH ONCE EVERY WEEK active Not Available Not Available No t Available trospium ER 60 mg capsule,ext ended release 24 hr TAKE ONE CAPSULE BY MOUTH EVERY DAY active Not Available Not Available No t Available oxycodone 10 mg tablet 09/14 completed Not Available Not Available Not Available diclofenac 1 % topical gel 09/14 completed Not Available Not Available Not Available butalbital- acetaminoph en-caffeine 50 mg-300 mg-40 mg capsule TAKE ONE CAPSULE BY MOUTH EVERY 8 HOURS NEEDED FOR HEADACHE 01/12 completed Not Available Not Available Not Available Xarelto 10 mg tablet TAKE ONE TABLET BY MOUTH EVERY 24 HOURS 12/28 completed Not Available Not Available Not Available Xarelto 20 mg tablet 03/26 completed Not Available Not Available Not Available Trelegy Ellipta 100 mcg-62.5 mcg-25 mcg powder for inhalation INHALE ONE PUFF BY MOUTH EVERY DAY 06/29 completed Not Available Not Available Not Available Vitals Date Recorded Body height Body mass index (BMI) Body weight Heart rate Oxygen saturation Oxygen saturation in Arterial blood by Pulse oximetry Systolic blood pressure Diastolic blood pressure Provider Name and Address Organization Details Last Updated DateTime 1 157.48 cm 36.4 kg/m2 19920.8 8 g 84 /min 96 % 96 % 121 mm[Hg] 75 mm[Hg] Eden Mcmullen [place] [facility] 1 10:30:30 Date Recorded Body height Provider Name an d Address Organization Details Last Updated DateTime 08/09/2021 157.48 cm Jagruti Elizabeth MD [address] , [address], [place], [address], [place] [facility] 08/09/2021 11:57:31 Date Recorded Body height Heart rate Oxygen saturation Oxygen saturation in Arterial blood by Pulse oximetry Systolic blood pressure Diastolic blood pressure Provider Name and Address Organization Details Last Updated DateTime 2 157.48 cm 79 /min 98 % 98 % 149 mm[Hg] 75 mm[Hg] Eden Zepedawell [place] - [facility] 2 14:01:32 Date Recorded Body height Body mass index (BMI) Body weight Heart rate Oxygen saturation Oxygen saturation in Arterial blood by Pulse oximetry Systolic blood pressure Diastolic blood pressure Provider Name and Address Organization Details Last Updated DateTime 2 157.48 cm 36.4 kg/m2 71776.8 8 g 80 /min 94 % 94 % 162 mm[Hg] 81 mm[Hg] Jagruti farfan MD [address] , [address], [place], [address], [place] - [facility] 2 11:23:01 Social History Question Answer Notes LastModified by Organizat ion Details LastModified Time Tobacco Smoking Status Former Smoker quit x 12 years Not Available [employer] 06/26/2020 03:16:11 What Is Your Level Of Alcohol Consumption? Occasional [id number] Information not available 06/26/2020 Are You Currently Employed? No [id number] Information not available 06/26/2020 Which Illicit Or Recreational Drugs Have You Used? No [id number] Information not available 06/26/2020 Education 12 Information no t available 09/14/2018 What Is Your Occupation? Disability [id number] Information not available 06/26/2020 Live Alone Or With Others? With Others [email or web address] Information not available 09/14/2018 Marital Status Informatio n not available 09/14/2018 What Was The Date Of Your Most Recent Tobacco Screening? 03/27/2019 [id number] Information not available 06/26/2020 How Many Years Have You Smoked Tobacco? 20 [id number] Information not available 06/26/2020 Sex: Unknown Functional Status None recorded. Mental Status None recorded. Family History Relationship Description Onset Age of this Age Resolved Age Notes LastModified by Organization Details LastModified Time Father No current problems or disability Not available 09/14 09:35:50 Mother No current problems or disability Not available 09/14 09:35:50 Medical History Condition Response Diabetes Y Cancer Y Arthritis Y Hypertension Y Depression Y High Cholesterol Y GERD/Reflux Y Gynecological HistoryNo gynecological history recorded. Obstetrics History GPAL:G 0 P 0 0 0 0 Past Encounters Encounter ID Performer Location Encounter Start Date Encounter Closed Date Diagnosis/Indication Diagnosis SNOMED-CT Code Diagnosis ICD10 Code Diagnosis Note [id number] Jagruti Elizabeth MD PAIN OFFICE [address] [place] [address] 09/14/2018 09:20:14 09/14/2018 12:05:18 Lumbosacral spondylosis without myelopathy 51633946 M47.817 Lumbar radiculopathy 128 462470 M54.16 Degenerati on of lumbar intervertebral disc 92804806 M51.36 [id number] Jagruti Elizabeth MD PAIN OFFICE [address] [place] [address] 10/09/2018 08:54:37 10/09/2018 10:59:45 Lumbosacral spondylosis without myelopathy 50397043 M47.817 Lumbar radiculopathy 128 177907 M54.16 Degenerati on of lumbar intervertebral disc 77703051 M51.36 [id number] Jagruti Elizabeth MD PAIN OFFICE [address] [place] [address] 11/08/2018 08:45:11 11/08/2018 11:03:12 Lumbosacral spondylosis without myelopathy 69028103 M47.817 Lumbar radiculopathy 128 683189 M54.16 Degenerati on of lumbar intervertebral disc 03479534 M51.36 [id number] Jagruti Elizabeth MD PAIN OFFICE [address] [place] [address] 03/26/2019 13:44:21 03/27/2019 16:06:04 Lumbosacral spondylosis without myelopathy 10640524 M47.817 Lumbar radiculopathy 128 872094 M54.16 Degenerati on of lumbar intervertebral disc 17390953 M51.36 [id number] Jagruti Elizabeth MD PAIN OFFICE [address] [place] [address] 04/02/2019 14:22:38 04/03/2019 11:57:34 Lumbosacral spondylosis without myelopathy 37268694 M47.817 Lumbar radiculopathy 128 456464 M54.16 Degenerati on of lumbar intervertebral disc 59144303 M51.36 [id number] Jagruti Elizabeth MD PAIN OFFICE [address] [place] [address] 05/06/2019 10:21:08 05/15/2019 11:02:55 Degeneration of cervical intervertebral disc 32631681 M50.30 Muscle pain 72542415 M79 .18 Degenerati on of lumbar intervertebral disc 76345239 M51.36 Lumbar radiculopathy 128 314869 M54.16 Lumbosacra l spondylosis without myelopathy 36908078 M47.817 [id number] Jagruti Elizabeth MD PAIN OFFICE [address] [place] [address] 05/15/2019 13:13:23 05/15/2019 14:18:15 Degeneration of cervical intervertebral disc 45794231 M50.30 Muscle pain 42918883 M79 .18 Degenerati on of lumbar intervertebral disc 63918462 M51.36 Lumbar radiculopathy 128 201294 M54.16 Lumbosacra l spondylosis without myelopathy 65125684 M47.817 [id number] Jagruti Elizabeth MD PAIN OFFICE [address] [place] [address] 05/30/2019 12:55:57 05/30/2019 13:33:51 Degeneration of cervical intervertebral disc 26731498 M50.30 Muscle pain 64560162 M79 .18 Degenerati on of lumbar intervertebral disc 86190166 M51.36 Lumbar radiculopathy 128 441534 M54.16 Lumbosacra l spondylosis without myelopathy 21403659 M47.817 56430 Jagruti Elizabeth MD PAIN OFFICE [address] [place] [address] 06/12/2019 11:37:11 06/24/2019 16:57:19 Degeneration of cervical intervertebral disc 84238069 M50.30 Muscle pain 47947230 M79 .18 Degenerati on of lumbar intervertebral disc 29959080 M51.36 Lumbar radiculopathy 128 568425 M54.16 Lumbosacra l spondylosis without myelopathy 40934339 M47.817 19449 Jagruti Elizabeth MD PAIN OFFICE [address] [place] [address] 10/23/2019 13:52:47 10/23/2019 14:42:33 Lumbosacral spondylosis without myelopathy 44417745 M47.817 Lumbar radiculopathy 128 468744 M54.16 Degenerati on of lumbar intervertebral disc 28773726 M51.36 61368 Jagruti Elizabeth MD PAIN OFFICE [address] [place] [address] 06/30/2020 08:32:55 06/30/2020 08:45:50 Lumbosacral spondylosis without myelopathy 52174865 M47.817 Lumbar radiculopathy 128 886125 M54.16 Degenerati on of lumbar intervertebral disc 50574680 M51.36 85291 Jagruti Elizabeth MD PAIN OFFICE [address] [place] [address] 07/21/2020 15:28:07 07/21/2020 15:57:40 Lumbosacral spondylosis without myelopathy 30064019 M47.817 Lumbar radiculopathy 128 344302 M54.16 Degenerati on of lumbar intervertebral disc 48443649 M51.36 68257 Jagruti Elizabeth MD PAIN OFFICE [address] [place] [address] 08/17/2020 09:19:36 08/17/2020 09:24:43 Lumbosacral spondylosis without myelopathy 10567769 M47.817 Lumbar radiculopathy 128 584319 M54.16 Degenerati on of lumbar intervertebral disc 42018801 M51.36 65980 Jagruti Elizabeth MD PAIN OFFICE [address] [facility] [place] [place] [address] 12/28/2020 15:16:05 12/29/2020 08:21:36 Muscle pain 11695432 M79.18 52179 Jagruti Elizabeth MD PAIN OFFICE [address] [facility] [place] [address] 06/29/2021 10:22:54 06/29/2021 13:59:36 Lumbosacral spondylosis without myelopathy 59979399 M47.817 Lumbar radiculopathy 128 290852 M54.16 Degenerati on of lumbar intervertebral disc 32718206 M51.36 89803 Jagruti Elizabeth MD PAIN OFFICE [address] [place] [address] 08/09/2021 11:55:52 08/09/2021 13:16:05 Lumbosacral spondylosis without myelopathy 51150217 M47.817 Lumbar radiculopathy 128 236558 M54.16 Degenerati on of lumbar intervertebral disc 88860771 M51.36 56030 Jagruti Elizabeth MD PAIN OFFICE [address] [place] [address] 01/12/2022 13:35:53 01/15/2022 10:59:14 Inflammation of joint of shoulder region 989593792 M13.819 Subacromia l bursitis of left shoulder 1493785213 056141 M75.52 77635 Jagruti Elizabeth MD PAIN OFFICE [address] [facility] [place] [address] 01/24/2022 11:13:47 01/24/2022 16:09:39 Inflammation of joint of shoulder region 251298419 M13.819 Subacromia l bursitis of left shoulder 9147271453 805705 M75.52 Health Concerns Section Related Observation LastModified by Organization Detai ls LastModified Time None Recorded Concern Status LastModified by Organization Details LastModified Time None Recorded Advance Directives Directive None Recorded Payers Encounter Date Sequence Insurance Name Policy Number Policy Orta Covered Member ID Orta Member ID Guarantor Name 12/28/2020 2 [facility] [id number] Ya Cameron [id number] Ya Crouchs 12/28/2020 1 [place] [facility] Ya B Cameron [id number] Ya Cameron 06/29/2021 2 [facility] [id number] Ya Cameron [id number] Ya Cameron 06/29/2021 1 [place] [facility] Ya B Cameron [id number] Ya Cameron 08/09/2021 2 [facility] [id number] Ya Cameron [id number] Ya Cameron 08/09/2021 1 [place] [facility] Ya B Cameron [id number] Ya Cameron 01/12/2022 2 [facility] [id number] Ya Cameron [id number] Ya Cameron 01/12/2022 1 [place] [facility] Ya B Cameron [id number] Ya Cameron 01/24/2022 2 [facility] [id number] Ya Cameron [id number] Ya Cameron 01/24/2022 1 [place] [facility] Ya B Cameron [id number] Ya Cameron Notes Date Note Type Note Provider Name and Address Organization Details Recorded Time 12/28/2020 text/html Ya Cameron is a 60 year old woman with mid back pain. She was last seen in 07/2020 and states she still has good pain relief which is ongoing after lumbar epidural steroid injection under fluoroscopic guidance. She has new onset mid back pain which is becoming greater. She has no radiating pain, numbness or weakness. She has no history of bladder or bowel incontinence.She was seen at [facility] and had imaging done. Results are not available today. Jagruti Elizabeth MD [address] , [address], [place], [address], [facility] 12/30/2020 08:57:28 06/29/2021 text/html She is here for a lumbar epidural steroid injection under fluoroscopic guidance. She had a fall in [facility] and has been having an exacerbation of her pain. She was seen at [facility]. No recent X-rays. Jagruti Elizabeth MD [address] [facility] [address] , [address], [place], [address], [facility] 06/30/2021 08:52:14 08/09/2021 text/html This is a follow up after a lumbar epidural steroid injection under fluoroscopic guidance. She reports 70-80% pain benefit which is ongoing. She has stiffness in the morning which improves with stretching. She is walking better . Jagruti Elizabeth MD [address] [facility] , [address], [place], [address], [facility] 08/11/2021 09:15:50 01/12/2022 text/html She is here for a follow up. She was last seen on 07/01 for a lumbar epidural steroid injection under fluoroscopic guidance. She reports good pain benefit. She is complaining of left shoulder pain . She has seen Dr. Rodriguez , orthopedic surgeon at [facility] for her pain. He recommend a left shoulder steroid injection under ultrasound guidance. She has been having shoulder pain for the past five years . She is having a difficult time lifting her arm over her head.MRI left shoulder shows mild supraspinatus tendonitis and minimal distal inferior spinatus calcific tendonitis. Mild glenohumeral arthritis. Jagruti Elizabeth MD [address] [facility] [address] , [address], [place], [address], [facility] 01/15/2022 11:05:58 01/24/2022 text/html She is here for a left shoulder steroid injection under ultrasound guidance Jagruti Elizabeth MD [address] [facility] , [address], [place], [address], [facility] 01/24/2022 16:37:45 OBGyn Episode No OBEpisode recorded.
--- OUTSIDE RECORDS SUMMARY | 2024-11-04 07:18 | XMS_ITS | Data Portability ---
Author Organization [place] [facility] Bhumika Rey AONE [place] Address [address] [facility] [address] [place] [address] Care Team Providers Care Branch Operation Evaluation Manager Name Role Phone LIZ LOPEZ Primary Care Provider Assessment Encounter Date Assessment Date Assessment LastModified by Organization Details LastModified Time 04/27/2023 04/27/2023 This is a pleasant 63-year-old female with a prepatellar bursitis presentation for which the patient opted for aspiration attempts. After this was carried out there was notable bloody aspirate without purulence. Patient is on Eliquis which may be a contributing factor. However due to the erythema and her history of diabetes I will place her on Bactrim DS for total of 7 days. I will send her for laboratory studies which include uric acid, rheumatoid factor, and Lyme titer. Depending upon the findings we may have to alter our treatment. I would like to see her back in approximately 10 to 14 days. Should her symptoms worsen she should contact our office or go to her orthopedic urgent care if it is after hours go to the emergency department. She did not appear to be septic whatsoever. She agrees with the above-noted plan. Indirect care and treatment in conjunction with Dr. Ramos Additional treatment plan discussed with the patient in detail included the following; - Provider focused nonsteroidal anti-inflammator y regimen (discussed were the pros, cons, benefits and risks as well as any black box warnings) in patients over 60 years old they should be very cautious in taking these medications due to potential decreased kidney function and or elevated blood pressure. - Analgesic pain medication for pain suppression (discussed were the pros, cons, benefits and risks as well as any black box warnings) - The use of topical pain relieving medication were discussed - The use of ice to decrease inflammation and pain - The use of assistive ambulatory devices for ambulation and fall prevention - Formal specific guided physical therapy program I reviewed my findings at length with the patient today. ? ? ?We discussed the nature and etiology of this problem along with current treatment options. We discussed the expected course and outcomes and what to expect. We also discussed risks and benefits. ? ? ? All of their questions were answered today, and there was exhibited understanding and comprehension of all that was discussed. Time Spent: 10 minutes were spent reviewing previous imaging and charting. ? ? ?10 minutes were spent obtaining patient history. ? ? ?5 minutes were spent on physical exam. ? ? ?5? ? ?minutes were spent explaining diagnosis and assessment. Today's documentation was made using voice recognition software. This note may contain grammatical errors secondary to the software. Not available 04/28/2023 08:15:08 05/11/2023 05/11/2023 Pleasant 63-year-old female following up on her laboratory studies which were all negative she did complete her Bactrim she does not appear to have infectious prepatellar bursitis it slightly low present but significantly less tender. Her primary complaint at this time is her ongoing hemijoint knee pain with walking. She does have arthritis we did discuss the pros, cons, benefits and risk of doing a cortisone injection. She is a diabetic she is aware that her blood sugars can spike for which she needs to take caution and if there is any significant bump reach out to her diabetic treating provider or go to the ER for there is a significant rise. After verbal consent was obtained for cortisone injection of the left knee this was then performed she tolerated this well aftercare instructions were discussed in detail. Should she have any questions or concerns she should contact my office otherwise I will see her back in 3 months time for repeat clinical exam. Patient agrees with the above-noted plan. Indirect care and treatment in conjunction with Dr. Ramos Additional treatment plan discussed with the patient in detail included the following; - Provider focused nonsteroidal anti-inflammator y regimen (discussed were the pros, cons, benefits and risks as well as any black box warnings) in patients over 60 years old they should be very cautious in taking these medications due to potential decreased kidney function and or elevated blood pressure. - Analgesic pain medication for pain suppression (discussed were the pros, cons, benefits and risks as well as any black box warnings) - The use of topical pain relieving medication were discussed - The use of ice to decrease inflammation and pain - The use of assistive ambulatory devices for ambulation and fall prevention - Formal specific guided physical therapy program I reviewed my findings at length with the patient today. ? ? ?We discussed the nature and etiology of this problem along with current treatment options. We discussed the expected course and outcomes and what to expect. We also discussed risks and benefits. ? ? ? All of their questions were answered today, and there was exhibited understanding and comprehension of all that was discussed. Time Spent: 10 minutes were spent reviewing previous imaging and charting. ? ? ?10 minutes were spent obtaining patient history. ? ? ?5 minutes were spent on physical exam. ? ? ?5? ? ?minutes were spent explaining diagnosis and assessment. Today's documentation was made using voice recognition software. This note may contain grammatical errors secondary to the software. Not available 05/11/2023 10:09:53 08/10/2023 08/10/2023 63-year-old female had a cortisone drip to the left knee on 05/11/2023 currently asymptomatic we will hold off on treatment. Regarding the right knee nontender Miller's cyst. We did discuss treatment options however she is on Eliquis aspiration she is not amenable to at this time since she is asymptomatic on exam. If her symptoms worsen she is to contact my office immediately. She is in agreement with the above-noted plan. Patient was seen and evaluated by Violette Corrales PA-C in indirect conjuction with Documenting Provider: Nain Ramos MD . He/She agrees with history, physical examination, tests/diagnostic imaging, and treatment plan. Additional treatment plan discussed with the patient (only initiated if in boldface font) otherwise not applicable. Treatment may include the following; - Provider focused nonsteroidal anti-inflammator y regimen (discussed were the pros, cons, benefits and risks as well as any black box warnings) in patients over 60 years old they should be very cautious in taking these medications due to potential decreased kidney function and or elevated blood pressure. - Analgesic pain medication for pain suppression (discussed were the pros, cons, benefits and risks as well as any black box warnings) - The use of topical pain relieving medication were discussed - The use of ice to decrease inflammation and pain - The use of assistive ambulatory devices for ambulation and fall prevention - Formal specific guided physical therapy program I reviewed my findings at length with the patient today. ? ? ?We discussed the nature and etiology of this problem along with current treatment options. We discussed the expected course and outcomes and what to expect. We also discussed risks and benefits. ? ? ? All of their questions were answered today, and there was exhibited understanding and comprehension of all that was discussed. Time Spent: 10 minutes were spent reviewing previous imaging and charting. ? ? ?10 minutes were spent obtaining patient history. ? ? ?5 minutes were spent on physical exam. ? ? ?5? ? ?minutes were spent explaining diagnosis and assessment. Today's documentation was made using voice recognition software. This note may contain grammatical errors secondary to the software. [email or web address] Not available 08/10/2023 09:40:31 Plan of Treatment Reminders Order Date Submit Date Provider Last Modified By Organization Details Last Modified Time Details Appointments None recorded. Lab rf (rheumatoid factor) + anti-ccp abs, serum 2022 023 Not available 3 09:02:48 uric acid, serum or plasma 2022 023 YOSELIN Not available 3 09:23:11 lyme disease Ab, serum 2022 023 Not available 3 09:02:48 Referral None recorded. Procedures None recorded. Surgeries None recorded. Imaging XR, knee, 1 or 2 view - Left Knee Pain 2022 023 [facility], [address], [place], [address], 3 15:18:58 XR, knee, 1 or 2 view - Right Knee Pain 2022 023 [facility], [address], [place], [address], 3 15:18:58 XR, knee, weightbeari ng - Bilateral Knee Pain 2022 023 [facility], [address], [place], [address], 3 15:18:58 Medication Orders Kenalog 40 mg/mL suspension for injection 2022 023 [place] [address] [facility], [address] [place] [address], [id number], 3 08:52:19 lidocaine (PF) 10 mg/mL (1 %) injection solution 2022 023 [place] [address] [facility], [address] [place] [address], [address], 3 08:52:23 Bactrim DS 800 mg-160 mg tablet 2022 023 [place] [address] [facility], [address] [place] [address], [address], 3 08:52:34 lidocaine (PF) 10 mg/mL (1 %) injection solution 2022 023 [place] [address] [facility], [address] [place] [address], [address], 3 08:52:23 Patient TargetsNo targets recorded. Patient Instructions Encounter Date Encounter Id Patient Instructions Last Modified By Organization Details Last Modified Time 04/27/2023 [id number] X-rays of both knees reveal overall well-maintained joint space with mild degenerative change without acute bony abnormality. Normal bone mineralization no obvious soft tissue findings are observed. Not available 04/28/2023 08:16:44 05/11/2023 [id number] You have been provided with a cortisone injection in order to reduce the pain and inflammation that you are experiencing. The injection consists of two medications. Cortisone (an anti-inflammatory that will take 48-72 hours to take effect) and Lidocaine (a numbing agent that will last 2-3 hours). Please note that not everyone will have a lasting response following the injection. PATIENT INSTRUCTIONS Once the Lidocaine wears off, you may have an increase in your pain. I recommend icing the affected area for 20 minutes 3-4 times per day. It is recommended that you refrain from any high level activities using the joint or limb that was injected for approximately 24-48 hours. Normal day-to-day activities are generally not a problem. POSSIBLE SIDE EFFECTS Individuals with dark complexions may experience some skin discoloration locally at the site of the injection. There is the possibility of an increase in discomfort within 48 hours following the injection. This is called a ? f lare? . To help minimize the chances of this, please see the post-injection instructions above. There is a less than 1% chance of an infection. If you notice any signs of infection (redness, warmth, drainage, fever greater than 100 degrees) please call our office or contact us through the portal [facility]. Not available 05/11/2023 10:10:35 Reason for Referral None Reported. Results Created Date Observation Date Name Description Value Unit Range Abnormal Flag Note LastModifiedBy Organization Detail LastModifiedTime Result Notes None recorded. Problems Name Problem SNOMED Code Status Onset Date Resolution Date Notes Provider Name and Address Organization Details Recorded Time Prepatellar bursitis of left knee 7148736009071 03 Active 2022 VIOLETTE CORRALES PA-C [address], [place], [address], [place] [facility] 3 14:06:33 Osteoarthri tis of left knee joint 3087975192608 09 Active 2022 VIOLETTE CORRALES PA-C [address], [place], [address], [place] [facility], [facility] 3 10:10:06 Synovial cyst of right knee 0585428096365 04 Active 2022 VIOLETTE CORRALES PA-C [address], [place], [address], [place] [facility], [facility] 3 09:39:52 Problem Notes None recorded. Procedures Surgical History Date Name Laterality Status Provider Name and Address Organization Details Recorded Time 05/11/2023 Knee Joint/Burs a Asp & Inj completed VIOLETTE CORRALES PA-C [address], [place], [address], [place] [facility] 05/11/2023 10:07:19 04/27/2023 Knee Joint/Burs a Asp & Inj completed VIOLETTE CORRALES PA-C [address] [place] [address], [place], [address], [place] [facility] 04/28/2023 08:13:06 Knee arthroscop y/surgery completed [facility] [place] [facility] 04/27/2023 13:25:28 Imaging Results None recorded. Procedure Notes None recorded. Medical Equipment None Reported. Allergies Allergen ID Allergen Name Allergen Category Reaction Reaction Severity Criticality Documentation Date Start Date Code Code System Note Provider Name and Address Organization Details Recorded Time 7279 Iodinated contrast media (substanc e) medicatio n Not available Not available Not available 04/27/2023 [id number] 2003 [facility] [place] [facility] 13:24:08 Medications Name Sig Start Date Stop Date Status Note LastModified by Organization Details LastModified Time celecoxib 200 mg capsule TAKE ONE CAPSULE BY MOUTH EVERY DAY 04/27 completed Not Available Not Available Not Available atorvastati n 40 mg tablet TAKE ONE TABLET BY MOUTH AT BEDTIME active Not Available Not Available No t Available buspirone 5 mg tablet TAKE ONE TABLET BY MOUTH THREE TIMES A DAY active Not Available Not Available No t Available metformin 500 mg tablet TAKE ONE TABLET BY MOUTH ONCE DAILY active Not Available Not Available No t Available tolterodine ER 4 mg capsule,ext ended release 24 hr TAKE ONE TABLET BY MOUTH AT THE SAME TIME DAILY active Not Available Not Available No t Available meloxicam 15 mg tablet TAKE ONE TABLET BY MOUTH EVERY DAY 08/10 completed Not Available Not Available Not Available amlodipine 2.5 mg tablet TAKE TWO TABLETS BY MOUTH EVERY DAY active Not Available Not Available No t Available sulfamethox azole 800 mg-trimetho prim 160 mg tablet TAKE ONE TABLET BY MOUTH EVERY 12 HOURS 08/10 completed Not Available Not Available Not Available omeprazole 40 mg capsule,del ayed release TAKE ONE CAPSULE BY MOUTH EVERY EVENING NEEDED FOR HEARTBURN SYMPTOMS active Not Available Not Available No t Available Kenalog 40 mg/mL suspension for injection Take 1 mL by injection route. 08/10 completed Not Available Not Available Not Available trazodone 100 mg tablet TAKE ONE TABLET BY MOUTH AT BEDTIME active Not Available Not Available No t Available cefuroxime axetil 500 mg tablet TAKE ONE TABLET BY MOUTH TWICE A DAY 08/10 completed Not Available Not Available Not Available fluoxetine 20 mg capsule TAKE TWO CAPSULES BY MOUTH EVERY DAY active Not Available Not Available No t Available azithromyci n 500 mg tablet TAKE ONE TABLET BY MOUTH EVERY 24 HOURS 08/10 completed Not Available Not Available Not Available lidocaine (PF) 10 mg/mL (1 %) injection solution Take 2 mL by injection route. 08/10 completed Not Available Not Available Not Available cholecalcif jadyn (vitamin D3) 1,250 mcg (50,000 unit) capsule TAKE ONE CAPSULE BY MOUTH ONCE EVERY WEEK 08/10 completed Not Available Not Available Not Available Chest Congestion Relief 100 mg/5 mL oral liquid TAKE 100MG 5 ML'S) BY MOUTH EVERY 6 HOURS NEEDED FOR COUGH 08/10 completed Not Available Not Available Not Available trospium ER 60 mg capsule,ext ended release 24 hr TAKE ONE CAPSULE BY MOUTH EVERY DAY active Not Available Not Available No t Available Eliquis 5 mg tablet TAKE ONE TABLET BY MOUTH TWICE A DAY active Not Available Not Available No t Available Vitals Date Recorded Body height Provider Name an d Address Organization Details Last Updated DateTime 08/10/2023 157.[facility] 08:53:04 Date Recorded Body height Body mass index (BMI) Body weight Provider Name and Address Organization Details Last Updated DateTime 04/27/2023 157.48 cm 36.4 kg/m2 13958.88 g Asha [facility], 04/27/2023 13:24:24 Social History Question Answer Notes LastModified by Organizat ion Details LastModified Time Tobacco Smoking Status Never Smoker Asha Rosario [facility] 04/27/2023 13:24:38 What Is Your Level Of Alcohol Consumption? Occasional Information not available 04/27/2023 How Many Times Per Week Do You Consume Alcohol? Less Than 1 Time Per Week Information not available 04/27/2023 Do You Use Any Illicit Or Recreational Drugs? No Information not available 04/27/2023 Do You Or Have You Ever Used Any Other Forms Of Tobacco Or Nicotine? No [email or web address] Information not available 04/27/2023 Sex: Unknown Functional Status None recorded. Mental Status None recorded. Family History Nothing Reported. Medical History Condition Response Diabetes Y Bleeding Disorder Y Hypertension Y Gynecological HistoryNo gynecological history recorded. Obstetrics History GPAL:G 0 P 0 0 0 0 Past Encounters Encounter ID Performer Location Encounter Start Date Encounter Closed Date Diagnosis/Indication Diagnosis SNOMED-CT Code Diagnosis ICD10 Code Diagnosis Note [id number] [address] [facility] [address] [facility] [address] [place] [address] 04/27/2023 12:51:19 04/27/2023 14:11:04 Pain of left knee joint 0346961369 34356 M25.562 Pain of ri ght knee joint 6864738978 97059 M25.561 Pain of bi lateral knee joints 9966793313 02968 M25.561 Prepatella r bursitis of left knee 4775006323 44379 M70.42 [id number] MD LARRY Jeronimo [facility] [address] [facility] [address] [place] [address] 05/11/2023 09:12:00 05/11/2023 10:08:57 Osteoarthritis of left knee joint 4685893927 51878 M17.12 [id number] MD LARRY Jer[facility] [address] [facility] [place] [address] [place] [address] 08/10/2023 08:41:03 08/10/2023 09:56:06 Synovial cyst of right knee 1573632165 34533 M71.21 Health Concerns Section Related Observation LastModified by Organization Detai ls LastModified Time None Recorded Concern Status LastModified by Organization Details LastModified Time None Recorded Advance Directives Directive None Recorded Payers Encounter Date Sequence Insurance Name Policy Number Policy Orta Covered Member ID Orta Member ID Guarantor Name 04/27/2023 1 [place]: [employer] Yasergio Cameron [id number] Ya Cameron 04/27/2023 2 [facility] [id number] Ya Cameron [id number] Ya Cameron 05/11/2023 1 [place]: [facility] Ya Cameron [id number] Ya Cameron 05/11/2023 2 [facility] [id number] Ya Cameron [id number] Ya Cameron 08/10/2023 1 [place] [facility] Ya Cameron [id number] Ya Cameron 08/10/2023 2 [facility] [id number] Ya Cameron [id number] Ya Cameron Notes Date Note Type Note Provider Name and Address Organization Details Recorded Time 04/27/2023 text/html This is a pleasa nt 63-year-old female who comes in for evaluation a bump just under her kneecap . She denies any injury. She states is tender to the touch with notable redness. She denies fevers or chills denies any warmth surrounding the area. She states this began approximately week ago. She denies any history of rheumatoid arthritis, Lyme disease or gout. Here for evaluation and treatment. VIOLETTE CORRALES PA-C [address] [place] [address], [address], [place] [facility] 06/07/2023 13:07:40 05/11/2023 text/html Assessment & Radha n: Date of visit 04/27/2023 (new patient)This is a pleasant 63-year-old female with a prepatellar bursitis presentation for which the patient opted for aspiration attempts. After this was carried out there was notable bloody aspirate without purulence. Patient is on Eliquis which may be a contributing factor. However due to the erythema and her history of diabetes I will place her on Bactrim DS for total of 7 days. I will send her for laboratory studies which include uric acid, rheumatoid factor, and Lyme titer. Depending upon the findings we may have to alter our treatment. I would like to see her back in approximately 10 to 14 days. Should her symptoms worsen she should contact our office or go to her orthopedic urgent care if it is after hours go to the emergency department. She did not appear to be septic whatsoever. She agrees with the above-noted plan. HPI: Since her last visit her laboratory studies as denoted above all came back negative. She took her antibiotic. Denies fevers chills flulike symptoms denies any warmth overlying the knee joint she still has the bump overlying her patella however is slightly less tender. And she denies any warmth. She complains of generalized knee pain mostly with weightbearing at this time inquiring about a cortisone injection since she is going on vacation. VIOLETTE CORRALES PA-C [address] [facility] [address], [place], [address], [place] [facility] 05/11/2023 10:11:00 08/10/2023 text/html 63-year-old fema le received cortisone injection of the left knee on 05/11/2023. She states that the pain went away she is currently asymptomatic no complaints of left knee pain. States some discomfort in her right knee mostly in the posterior aspect without injury. 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 Denies shortness of breath. VIOLETTE CORRALES PA-C [address] [facility], [place], [address], [place] [facility] 08/10/2023 09:40:52 OBGyn Episode No OBEpisode recorded.
--- OUTSIDE RECORDS SUMMARY | 2024-11-04 07:19 | XMS_ITS | Clinical Summary ---
Author Organization [employer] [facility] ity Address [address] [place] [address] Care Team Providers Care Lead Person Name Role Phone Flakita Calero MD Primary Care Provider [phone] Surgical History Surgery Date Site/Laterality Comments NECK SURGERY PROCEDURE:NECK SURGERY SHOULDER SURGERY PROCEDURE:SHOULDER SURGERY Medical History Medical History Date Comments Diabetes mellitus (CMS/HCC) DX:D iabetes mellitus (HCC) Hypertension DX:Hypertension Arthritis DX:Arthritis Family History Medical History Relation Name Comments Hypertension Mother Relation Name Status Comments Mother Social History Tobacco Use Types Packs/Day Years Used Date Smoking Tobacco: Never Smokeless Tobacco: Never Alcohol Use Standard Drinks/Week Comments No 0 (1 standard drink = 0.6 oz pur e alcohol) Comments Unknown Sex and Gender Information Value Date Recorded Sex Assigned at Not on file Legal Sex Female 12:06 PM EST Gender Identity Not on file Sexual Orientation Not on file Obstetrics History Plan of Treatment Health Maintenance Due Date Last Done Comments Breast Cancer Screening 1961 DTaP,Tdap,and Td Vaccines (1 - Tdap) 1980 Cervical Cancer Screening: P ap Smear 1982 Pneumococcal Vaccine: 50+ Ye ars (1 of 1 - PCV) 2011 Zoster Vaccines (1 of 2) 2011 Cholesterol Screening (Lipid Panel) 04/09/2024 Colorectal Cancer Screening: Colonoscopy 04/09/2024 Depression Screening 04/09/2024 HIV Screening 04/09/2024 Hepatitis C Screening 04/09/2024 Hypertension/CHF/CAD Annual BMP Blood Test 04/09/2024 Social Influencers of Health Screening 04/09/2024 COVID-19 Vaccine (1 - 2023-2 5 season) 2024 Influenza Vaccine (#1) 2024 RSV Immunization Patients 60 + Years Old (1 - 1-dose 75+ series) 2036 HIB Vaccines Aged Out No longer eligi ble based on patient's age to complete this topic HPV Vaccines Aged Out No longer eligi ble based on patient's age to complete this topic Hepatitis A Vaccines Aged Out No long er eligible based on patient's age to complete this topic Hepatitis B Vaccines Aged Out No long er eligible based on patient's age to complete this topic IPV Vaccines Aged Out No longer eligi ble based on patient's age to complete this topic MMR Vaccines Aged Out No longer eligi ble based on patient's age to complete this topic Meningococcal ACWY Vaccine Aged Out N o longer eligible based on patient's age to complete this topic Meningococcal B Vacine Aged Out No lo nger eligible based on patient's age to complete this topic Pneumococcal Vaccine: Pediat rics (0 to 5 Years) and At-Risk Patients (6 to 64 Years) Aged Out No longer eligible b ased on patient's age to complete this topic RSV Immunization Patients Un daja 20 months Aged Out No longer eligible b ased on patient's age to complete this topic Varicella Vaccines Aged Out No longer eligible based on patient's age to complete this topic Care Teams Lead Person Relationship Specialty Start Date End Date Flakita Calero MD [address] [place] [address] PCP - General 02/15/08
--- OUTSIDE RECORDS SUMMARY | 2024-11-04 07:19 | XMS_ITS | Clinical Summary ---
Author Organization [facility] Address [address] [place] [address] Care Team Providers Care Acoustical Installer Name Role Phone Flakita Calero MD Primary Care Provider [phone] Allergies Active Allergy Reactions Criticality Noted Date Comments Iodinated Contrast Media 10/31/2017 Medications Medication Sig Dispensed Refills Start Date End Date Status FLUoxetine (PROZAC) 10 MG capsule TAKE 3 CAPSULES IN THE MORNING ONCE DAILY 5 10/17/2017 Active metFORMIN (GLUCOPHAGE) tablet 500 mg Take 500 mg by mouth 2 (two) times a day with meals. 5 09/18/2017 Active metoprolol succinate (TOPROL-XL) 24 hr tablet 25 mg 0 10/28/2017 Active oxybutynin (DITROPAN-XL) 10 MG 24 hr tablet TAKE TWO TABLETS (20MG) BY MOUTH EVERY DAY DIRECTED 2 10/11/2017 Active QUEtiapine (SEROQUEL) 25 MG tablet Take 25 mg by mouth every night at bedtime. 5 08/19/2017 Active XARELTO 20 MG TABS tablet TAKE ONE TABLET BY MOUTH EVERY 24 HOURS 6 10/09/2017 Active traZODone (DESYREL) 50 MG tablet Take 50 mg by mouth every night at bedtime as needed. 0 10/21/2017 Active ferrous sulfate 325 (65 FE) MG tablet TAKE ONE TABLET BY MOUTH EVERY DAY 1 10/23/2017 Active atorvastatin (LIPITOR) tablet 80 mg atorvastatin 80 mg tablet 0 Active albuterol (PROVENTIL HFA;VENTOLIN HFA) 108 (90 Base) MCG/ACT inhaler 0 11/14/2019 Active furosemide (LASIX) 20 MG tablet furosemide 20 mg tablet 0 Active omeprazole (PriLOSEC) 20 MG capsule 0 09/21/2019 Active Active Problems Problem Noted Date Diagnosed Date Possible bilateral carpal tunnel syndrome 2019 Right carpal tunnel syndrome 10/02/2019 Left carpal tunnel syndrome 10/02/2019 Possible cervical radiculopathy 10/02/2019 Subacromial bursitis of left shoulder joint 04/2020 Impingement syndrome of left shoulder region 04/2020 Arthritis of right knee 10/31/2017 Family History Medical History Relation Name Comments Hypertension Mother Relation Name Status Comments Mother Social History Tobacco Use Types Packs/Day Years Used Date Smoking Tobacco: Never Smokeless Tobacco: Never Alcohol Use Standard Drinks/Week Comments No 0 (1 standard drink = 0.6 oz pur e alcohol) Sex and Gender Information Value Date Recorded Sex Assigned at Not on file Gender Identity Not on file Sexual Orientation Not on file Last Filed Vital Signs Vital Sign Reading Time Taken Comments Blood Pressure - - Pulse - - Temperature - - Respiratory Rate - - Oxygen Saturation - - Inhaled Oxygen Concentration - - Weight 93 kg (205 lb) 10/31/2017 9:40 AM EST Height 157.5 cm (5' 2 ) 10/31/2017 9:40 AM EST Body Mass Index 37.49 10/31/2017 9:40 AM EST Plan of Treatment Health Maintenance Due Date Last Done Comments Hepatitis C Screening 1961 COVID-19 Vaccine (#1) 1961 Pneumococcal Vaccine (1 of 2 - PCV) 1967 Depression Screening 1973 Preventative Health Evaluation 1979 DTap / Tdap / Td (1 - Tdap) 1980 Cervical Cancer Screening (P ap Smear) 1982 Colon Cancer Screening (Colonoscopy) 2006 Breast Cancer Screening (Mammogram) 2011 Shingrix-Zoster Vaccine (1 of 2) 2011 Influenza Vaccine (#1) 2024 RSV Adult > 60+ Yrs or Pregn ant (1 - 1-dose 75+ series) 2036 Hepatitis B Vaccines Aged Out No long er eligible based on patient's age to complete this topic RSV Ped < 20 months Aged Out No longe r eligible based on patient's age to complete this topic Care Teams Acoustical Installer Relationship Specialty Start Date End Date Flakita Calero MD [address] [place] [id number] PCP - General Internal Medicine 10/27/17
--- OUTSIDE RECORDS SUMMARY | 2024-11-04 07:19 | XMS_ITS | Patient Health Record ---
Author Organization [facility] Address [address] [place] [address] Care Team Providers Care Warehouse Pricing And Inventory Clerk Name Role Phone Abdias QUIROZ, Flakita Bowens Primary Care Provider Un available Elena Mejia Unavailable [phone] Allergies Allergen (clinical drug ingredient) Drug/Non Drug Allergy documented on EMR Reaction Allergy Type Onset Date Status povidone-iodine Povidone Iodine Unknown Drug Allergy Active Reason For Referral No Information Medications Medication SIG (Take, Route, Frequency, Duration) Notes [...] Not-Taking oxyBUTYnin Not-Takin g Atorvastatin Calcium Active Immunizations Vaccine Route Administration Date Status Comme nts Influenza Unknown 06/24/2015 Administered Influenza Unknown 06/29/2016 Administered Influenza Unknown 05/15/2017 Administered Influenza Unknown 05/15/2017 Administered Pneumococcal Unknown 06/24/2015 Administered Social History Tobacco Use: Social History Observation Description Date Details (start date - stop date) Former Smoker NA - NA Tobacco Use/Smoking Question Answer Notes Are you [...] Are you an other tobacco user? No Problems Problem Type SNOMED Code ICD Code Onset Dates Problem Status W/U Status Risk Notes Problem Type II diabetes mellitus without complication (584609215) Type 2 diabetes mellitus without complications (E11.9) Active confirmed Problem 41201880 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 (M19.072) Active confirmed Plan Of Treatment Pending Test Test Name Order Date X ray : Foot, left 3V 07/07/2021 [id number] NAIL, 1-5 06/06/2016 21480-Iaqzjafg Plate 01/17/2017 [id number]-Vnsggduy Plate 05/23/2016 [id number] 06/13/2017 11569- Debride <25 sq cm 07/21/2015 48360- Debride <25 sq cm 07/11/2017 83640- Debride <25 sq cm 07/25/2017 [id number] SKIN/TISSUE 06/27/2017 52474 I&D ABSCESS- SIMPLE,SINGLE 015 62438 I&D ABSCESS- SIMPLE,SINGLE 015 Insurance Providers Payer Name Payer Address Payer Phone Subscriber Number Group Number Insured Name Patient Relationship to Insured Coverage Start Date Coverage End Date Medicare [employer] [address] [place] [address] [id number] Ya Cameron Self - patient is the insured [facility] [address] [place] [address] [id number] Ya Cameron Self - patient is the insured Medical (General) History Medical History History ICD Code Depression Gastroesophageal [...]
== END 2024-11-04 07:16 | disposition home or self-care (01) ==
LOC: HO.HOSX 07:15
PROVIDERS: Visit Provider Orthopaedic Surgery
DX: S82.202D Unspecified fracture of shaft of left tibia, subsequent encounter for closed fracture with routine healing (principal); S82.402D Unspecified fracture of shaft of left fibula, subsequent encounter for closed fracture with routine healing; S82.202G Unspecified fracture of shaft of left tibia, subsequent encounter for closed fracture with delayed healing
CPT/HCPCS: 73590; 99212

== ENCOUNTER 2024-11-04 09:22 | Outpatient (AMB) | payer MEDICARE, OTHER, SELFPAY ==
--- NOTE | 2024-11-04 09:38 | MHC.OFFVIS ---
Vital Signs 11/04/24 09:39 Height 5 ft 2 in Weight 209 lb BMI 38.2 Intake Visit Reasons: OV - Left Tib/Fib ORIF 09/16/23 Intake Note: Ya is a 63 year old female who presents to the office today for a follow up of her left ankle s/p Left Tib/fib ORIF 09/16/23. Tibial shaft non-union. Patient reports that she has had her bone stimulator for about 1 month now and uses it once a day. Since starting the bone stimulator she reports increased pain at the ankle. She is taking OTC Tylenol PRN pain which provides mild releif. Accompanied by: Spouse Allergies Iodinated Contrast Media [IV CONTRAST] Adverse Reaction (Intermediate, Verified 11/04/24 09:42) Rash capsaicin Adverse Reaction (Verified 11/04/24 09:42) Rash perflutren [From Definity] Adverse Reaction (Verified 11/04/24 09:42) Back Pain HPI HPI OV - Left Tib/Fib ORIF 09/16/23: Details: Ya is a 63 year old female who presents to the office today for a follow up of her left ankle s/p Left Tib/fib ORIF 09/16/23. Tibial shaft non-union. Patient reports that she has had her bone stimulator for about 1 month now and uses it once a day. Since starting the bone stimulator she reports increased pain at the ankle. She is taking OTC Tylenol PRN pain which provides mild relief. [facility] Medical History (Updated 11/04/24 @ 10:58 by Danilo Rodriguez MD) Type 2 diabetes mellitus with hyperglycemia, without long-term current use of insulin Preoperative examination Current use of correction anticoagulation History of abnormal cervical Pap smear Prolapse of female pelvic organs Prepatellar bursitis Primary hypertension Generalized anxiety disorder COPD (chronic obstructive pulmonary disease) History of COVID-19 Depression, major, recurrent, in complete remission Herpes zoster Left shoulder tendinitis GERD (gastroesophageal reflux disease) Calcaneal spur of left foot Arthritis of first metatarsophalangeal (MTP) joint of left foot Deviated nasal septum History of pulmonary embolism History of thyroid cancer Essential hypertension Dyslipidemia Surgical History History of fusion of cervical spine Status post open reduction and internal fixation (ORIF) of fracture (~01/06/24) Hx of left breast biopsy History of partial thyroidectomy History of surgery History of cervical spinal surgery History of shoulder surgery History of colonoscopy History of tubal ligation H/O spinal fusion Family History Father Alcoholism Mother HTN (hypertension) Hyperlipidemia CVD (cardiovascular disease) Sister Hyperlipidemia Alcoholism Substance use disorder Brother No problems noted. Sister No problems noted. Sister No problems noted. Sister No problems noted. Daughter No problems noted. Daughter No problems noted. 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 Social History Household Members: Significant Other Household Members Other:: 2 Housing: Apartment Do you presently have visiting nurse or other home services: No Alcohol intake: never Patient Tobacco Use Status: Former Tobacco user Years Smoked: 4 yrs e-Cigarette/Vaping Use: Never Used Second Hand Smoke Exposure: No Advance Directives Date on File: 11/08/22 service: No Current occupational status: disabled Cognitive needs: No Hearing needs: No Vision needs: Yes Physical Exam Vital Signs: BMI result Body Mass Index 38.2 Extrem Other: Mild tenderness to palpation over the medial plate but otherwise ankle and knee motion are intact. There is no effusion. Incisions are well healed. Results Reviewed Results Reviewed: I personally reviewed relevant radiographs. Unchanged radiographs. No evidence of osseous bridging on lateral radiograph. 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 She finally got a bone stimulator. She has only been using it for 1 month. I recommend she use it for another 2 months and then come back to see me. If, at that time, there is no evidence of bony union I would recommend removal of screws to dynamize the fracture. Orders: Orders XR tibia fibula LT 2V Today S82.202G - Unspecified fracture of shaft of left tibia, subsequent encounter for closed fracture with delayed healing Coding Level of Care Code Est Pt Level 3 (26408) Diagnoses Nonunion of fracture of lower leg S82.90XK
[2024-11-04 09:39] VITALS: BMI 38.2
--- OUTSIDE RECORDS SUMMARY | 2024-11-04 10:03 | XMS_ITS | Clinical Summary ---
Author Organization [employer] [facility] ity Address [address] [place] [address] Care Team Providers Care Oracle Wms Consultant Name Role Phone Flakita Calero MD Primary Care Provider Surgical History Surgery Date Site/Laterality Comments NECK [...] age to complete this topic Care Teams Oracle Wms Consultant Relationship Specialty Start Date End Date Flakita Calero MD [address] [place] [address] PCP - General 02/15/08
--- OUTSIDE RECORDS SUMMARY | 2024-11-04 10:03 | XMS_ITS | Clinical Summary ---
Author Organization [facility] Address [address] [place] [address] Care Team Providers Care Loading Dock Helper Name Role Phone Flakita Calero MD Primary Care Provider [phone] Allergies Active Allergy Reactions Criticality Noted Date [...] age to complete this topic Care Teams Loading Dock Helper Relationship Specialty Start Date End Date Flakita Calero MD [address] [place] [id number] PCP - General Internal Medicine 10/27/17
== END 2024-11-04 09:58 | disposition home or self-care (01) ==
PROVIDERS: PCP Internal Medicine; Visit Provider Orthopaedic Surgery
DX: S82.202K Unspecified fracture of shaft of left tibia, subsequent encounter for closed fracture with nonunion (principal)
CPT/HCPCS: 99213

== ENCOUNTER → 2024-11-04 09:30 | Outpatient (BNV) | payer MEDICARE, OTHER, SELFPAY | PROVIDERS: Visit Provider Radiology Diagnostic Radiology | DX: S82.202G Unspecified fracture of shaft of left tibia, subsequent encounter for closed fracture with delayed healing (principal) | CPT/HCPCS: 73590 ==

== ENCOUNTER → 2024-12-13 07:56 | Outpatient (REF) | payer MEDICARE, OTHER, SELFPAY ==
--- NOTE | ~2024-12-13 | NM_ITS ---
Lexiscan Myocardial perfusion study Indication: Chest pain to evaluate for myocardial ischemia Technique: The patient was brought in for a Lexiscan perfusion study on 12/13/2024 and was injected 0.4 mg of Lexiscan intravenously. Within a minute of this injection 30 mCi of sestamibi was given intravenously. Images were obtained using the SPECT gamma camera interlaced with the gating device. Images were obtained in supine position. Resting perfusion study was performed on 12/16/2024. Patient was administered 30 mCi of sestamibi intravenously at rest. Images were then obtained in supine position. Images obtained without without CT attenuation. Total DLP 130 mGy-cm. Images were processed with the software and compared side to side in short axis, horizontal long axis and vertical long axis views. Findings: The stress perfusion study showed nonattenuated images show mildly reduced uptake in the apical portion of the lateral wall of the LV myocardium. Attenuated corrected images show normal uptake of radiotracer in all segments of the LV myocardium. The gated study shows normal LV systolic function with calculated LVEF of 67%. LV cavity is normal in size. The gated study shows normal systolic wall thickening and contraction of segments. Resting study shows nonattenuated images show normal uptake of radiotracer in all segments of the LV myocardium. Attenuated corrected images show normal uptake of radiotracer in all segments of the LV myocardium. Gating at rest reveals normal systolic wall motion with ejection fraction at 62%. The findings are consistent with likely normal myocardial perfusion. NM/NM carl perf SPECT rest & str Impression: 1. Myocardial perfusion imaging study shows [likely normal myocardial perfusion 2. Gated LVEF is 67% 3. Transient ischemic dilatation not present Nondiagnostic changes on EKG. Electronically signed by: Tawanda Reyes MD 12/16/2024 01:50 PM EDT
--- NOTE | 2024-12-13 08:01 | CA_ITS ---
Acquisition Time: 2024-12-13 08:09:20 Total Exercise Time: 00:02:00 Test Indications: CP Medications: SEE H&P Protocol: LEXISCAN Max HR: 120 BPM 76% of Pred: 157 BPM Max BP: 160/78 mmHG Max Work Load: 1.0 METS Pharmacological stress test with Lexiscan while pt moves her legs in the chair, with reports of SOB and palpitations, without any arrythmias, with normotensive response to injection. Nondiagnostic EKG for ischemia. In recovery, pt treated with IVP Aminophylline 75 mg to reverse Lexiscan after which pt feeling back to baseline. Nuclear images pending. Test reviewed with Dr. Ramirez. Referred By: Tawanda Reyes Electronically Signed By: Robinson Kendrick
--- OUTSIDE RECORDS SUMMARY | 2024-12-13 08:03 | XMS_ITS | Data Portability ---
Author Organization [place] [facility] [place] Address [address] [place] [address] Care Team Providers Care Fabrication Welder Name Role Phone ILZ LOPEZ Primary Care Provider Assessment Encounter Date [...] Left Knee Pain 2022 023 [facility], [address], [place], [id number], 3 15:18:58 XR, knee, 1 or 2 view - Right Knee Pain 2022 023 [facility], [address], [place], [id number], 3 15:18:58 XR, knee, weightbeari ng - Bilateral Knee Pain 2022 023 [facility], [address], [place], [address], 3 15:18:58 Medication Orders Kenalog 40 mg/mL suspension for injection 2022 023 [place] [address] [facility], [address] [place] [address], [address], 3 08:52:19 lidocaine (PF) 10 mg/mL (1 %) injection solution 2022 023 [place] [address] [facility], [address] [place] [address], [address], 3 08:52:23 Bactrim DS 800 mg-160 mg tablet 2022 023 [place] [address] [facility], [address] [place] [address], [address], 3 08:52:34 lidocaine (PF) 10 mg/mL (1 %) injection solution 2022 023 [place] [address] [facility], [address] [place] [address], [address], 3 08:52:23 Patient TargetsNo targets recorded. Patient Instructions Encounter Date Encounter Id Patient Instructions Last Modified By Organization Details Last Modified Time 04/27/2023 [id number] X-rays of both knees reveal overall well-maintained joint space with mild degenerative change without acute bony abnormality. Normal bone mineralization no obvious soft tissue findings are observed. Not available 04/28/2023 08:16:44 05/11/2023 [id number] You have been provided with a cortisone [...] Recorded Time Prepatellar bursitis of left knee 6835406544581 03 Active 2022 VIOLETTE CORRALES PA-C [address], [place], [address], [place] [facility], P 3 14:06:33 Osteoarthri tis of left knee joint 1699020376039 09 Active 2022 VIOLETTE CORRALES PA-C [address], [place], [address], [place] [facility], P 3 10:10:06 Synovial cyst of right knee 8441400910743 04 Active 2022 VIOLETTE CORRALES PA-C [address], [place], [address], [place] [facility], P 3 09:39:52 Problem Notes None recorded. Procedures Surgical History Date Name Laterality Status Provider Name and Address Organization Details Recorded Time 05/11/2023 Knee Joint/Burs a Asp & Inj completed VIOLETTE CORRALES PA-C [address], [place], [address], [place] [facility], P 05/11/2023 10:07:19 04/27/2023 Knee Joint/Burs a Asp & Inj completed VIOLETTE CORRALES PA-C [address] [place] [address], [place], [address], [place] [facility], P 04/28/2023 08:13:06 Knee arthroscop y/surgery completed [facility] [place] [facility], P 04/27/2023 13:25:28 Imaging Results None recorded. Procedure Notes None recorded. Medical Equipment None Reported. Allergies Allergen ID Allergen Name Allergen Category Reaction Reaction Severity Criticality Documentation Date Start Date Code Code System Note Provider Name and Address Organization Details Recorded Time 7279 Iodinated contrast media (substanc e) medicatio n Not available Not available Not available 04/27/2023 90726 2003 SNOMED [facility] [place] [facility], P 13:24:08 Medications Name Sig Start Date [...] Last Updated DateTime 08/10/2023 157.48 [facility] 08/10/2023 08:53:04 Date Recorded Body height Body mass index (BMI) Body weight Provider Name and Address Organization Details Last Updated DateTime 04/27/2023 157.48 cm 36.4 kg/m2 60612.88 g Asha [place] [facility], 04/27/2023 13:24:24 Social History Question Answer Notes LastModified by Organizat ion Details LastModified Time Tobacco Smoking Status Never Smoker Asha [facility], P 04/27/2023 13:24:38 What Is Your Level [...] SNOMED-CT Code Diagnosis ICD10 Code Diagnosis Note [id number] [address] [place] [address] 04/27/2023 12:51:19 04/27/2023 14:11:04 Pain of left knee joint 9812585845 16577 M25.562 Pain of ri ght knee joint 2977698656 96813 M25.561 Pain of bi lateral knee joints 5273420571 69762 M25.561 Prepatella r bursitis of left knee 1526240941 04244 M70.42 [id number] MD LARRY Jeronimo [facility] [address] [place] [address] 05/11/2023 09:12:00 05/11/2023 10:08:57 Osteoarthritis of left knee joint 7731784588 06310 M17.12 [id number] MD LARRY Jeronimo [facility] [address] [facility] [address] [place] [address] 08/10/2023 08:41:03 08/10/2023 09:56:06 Synovial cyst of right knee 6408358829 39157 M71.21 Health Concerns Section Related Observation LastModified by Organization Detai ls LastModified Time None Recorded Concern Status LastModified by Organization Details LastModified Time None Recorded Advance Directives Directive None Recorded Payers Encounter Date Sequence Insurance Name Policy Number Policy Orta Covered Member ID Orta Member ID Guarantor Name 04/27/2023 1 [place]: [employer] Yasergio Cameron [id number] Ya Cameron 04/27/[address] [facility] [id number] Ya Cameron [id number] Ya Cameron 05/11/2023 1 [place]: [facility] Ya Cameron [id number] Ya Cameron 05/11/[address] [facility] [id number] Ya Cameron [id number] Ya Cameron 08/10/2023 1 [place] [facility] Ya Cameron [id number] Ya Cameron 08/10/[address] [facility] [id number] Ya Cameron [id number] Ya Cameron Notes Date Note Type Note [...] for evaluation and treatment. VIOLETTE CORRALES PA-C [address] [place] [address], [address], [place] [facility], P 06/07/2023 13:07:40 05/11/2023 text/html Assessment & [...] going on vacation. VIOLETTE CORRALES PA-C [address] [facility] [address], [place], [address], [place] [facility], P 05/11/2023 10:11:00 08/10/2023 text/html 63-year-old fema [...] shortness of breath. VIOLETTE CORRALES PA-C [address] [facility],[address], [place], [address], [place] [facility], P 08/10/2023 09:40:52 OBGyn Episode No OBEpisode recorded.
--- OUTSIDE RECORDS SUMMARY | 2024-12-13 08:04 | XMS_ITS | Clinical Summary ---
Author Organization [employer] [facility] ity Address [address] [place] [address] Care Team Providers Care Rounding Machine Operator Name Role Phone Flakita Calero MD Primary Care Provider [phone] Surgical History Surgery Date Site/Laterality Comments NECK [...] Influencers of Health Screening 04/09/2024 COVID-19 Vaccine ( - 2023-2 5 season) 2024 Influenza Vaccine (#1) 2024 RSV Immunization Adult Patie nts (1 - 1-dose 75+ series) 2036 HIB [...] age to complete this topic Care Teams Rounding Machine Operator Relationship Specialty Start Date End Date Flakita Calero MD [address] [place] [address] PCP - General 02/15/08
--- OUTSIDE RECORDS SUMMARY | 2024-12-13 08:04 | XMS_ITS | Data Portability ---
Author Organization [facility], PAIN OFFICE Address [address] [facility] [address] [place] [address] Care Team Providers Care Parachute Supervisor Name Role Phone LIZ LOPEZ Primary Care Provider SARAH CLAY Referring Provider Assessment Encounter Date Assessment Date Assessment [...] results of the imaging studies done at [facility]. [email or web address] Not available 12/29/2020 08:21:00 06/29/2021 06/29/2021 [...] made for the same. 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 She is a diabetic. Blood sugar levels may temporarily increase after steroid injections. She was advised to check her blood glucose levels three times a day post procedure. If her levels are above 250, She was advised to contact her PCP. yared Not available 01/15/2022 10:58:35 01/24/2022 01/24/2022 Ya Camerno is 61 year old woman with left [...] By Organization Details Last Modified Time 12/28/2020 [id number] Telehealth visit: The patient was located at home for this telephone electronic visit and gave consent for this visit to be conducted via telehealth. 15 minutes was spent on this call and greater than 50% of the visit was spent on counseling and coordination of care [email or web address] Not available 12/29/2020 08:16:48 06/29/2021 [id number] She was advised against bed rest lasting longer than four days and to continue activities as tolerated. [email or web address] Not available 06/29/2021 13:50:55 08/09/2021 [id number] She was advised against bed rest lasting [...] care. [email or web address] Not available 08/09/2021 11:56:59 01/12/2022 [id number] She was advised against bed rest lasting longer than four days and to continue activities as tolerated. [email or web address] Not available 01/15/2022 10:55:55 01/24/2022 [id number] She was advised against bed rest lasting longer than four days and to continue activities as tolerated. [email or web address] Not available 01/24/2022 16:06:51 Reason for Referral None Reported. Problems Name Problem SNOMED Code Status Onset Date Resolution Date Notes Provider Name and Address Organization Details Recorded Time Degeneration of lumbar intervertebral disc 73057409 Geovanna farfan MD [address] [facility] , [address], [facility] [place], [address] , [place] [facility] 11:51:41 Lumbar radiculopathy 837485883 Geovanna farfan MD [address] , [address], [facility] [place], [address], [place] [facility] 9 11:53:15 Lumbosacral spondylosis without myelopathy 13738646 Active Jagruti farfan MD [address] , [address], [place], [address], [place] [facility] 9 11:53:34 Degeneration of cervical intervertebral disc 20468190 Active Jagruti farfan MD [address] [facility] , [address], [place], [address], [place] [facility] 9 09:02:31 Muscle pain 85041833 Active Jagruti farfan MD [address] [facility] , [address], [place], [address], [place] [facility] 9 09:02:41 Problem Notes None recorded. Procedures Surgical History Date Name Laterality Status Provider Name and Address Organization Details Recorded Time 01/25/20 22 Intra-articular shoulder steroid injection under ultrasound guidance completed Jagruti Elizabeth MD [address] [facility] , [address], [place], [address], [place] [facility] 01/24/2022 16:06:02 06/29/20 21 Lumbar Epidural steroid injection under fluoroscopic guidance completed Jagruti Elizabeth MD [address] [facility] , [address], [place], [address], [place] [facility] 06/29/2021 13:51:52 07/21/20 20 Lumbar Epidural steroid injection under fluoroscopic guidance completed Jagruti Elizabeth MD [address] [facility] , [address], [place], [address], [place] [facility] 07/21/2020 15:54:12 10/23/19 20 Lumbar Epidural steroid injection under fluoroscopic guidance completed Jagruti Elizabeth MD [address] [facility] , [address], [place], [address], [place] [facility] 10/23/2019 14:39:47 05/30/20 19 Trigger Point Injections under ultrasound guidance completed Jagruti Elizabeth MD [address] , [address], [place], [address], [place] [facility] 05/30/2019 13:31:49 05/15/20 19 Trigger Point Injections under ultrasound guidance completed Jagruti Elizabeth MD [address] [facility] , [address], [place], [address], [place] [facility] 05/15/2019 14:15:41 04/02/20 19 Lumbar Epidural steroid injection under fluoroscopic guidance completed Jagruti Elizabeth MD [address] [facility] , [address], [place], [address], [place] [facility] 04/03/2019 08:35:11 10/09/19 19 Lumbar Epidural steroid injection under fluoroscopic guidance completed Jagruti Elizabeth MD [address] [facility] , [address], [place], [address], [place] [facility] 10/09/2018 [...] Name and Address Organization Details Recorded Time 37588 Iodinated contrast media (substanc e) medicatio n rash Not available Not available 09/14/2018 88464 2004 SNOMED < great er 21 years [...] Updated DateTime 1 157.48 cm 36.4 kg/m2 51827.8 8 g 84 /min 96 % 96 % 121 mm[Hg] 75 mm[Hg] Eden Mcmullen [place] - [facility] 1 10:30:30 Date Recorded Body height Provider Name an d Address Organization Details Last Updated DateTime 08/09/2021 157.48 cm Jagruti Elizabeth MD [address] , [address], [place], [address], [place] [facility] 08/09/2021 11:57:31 Date Recorded Body height Heart rate Oxygen saturation Oxygen saturation in Arterial blood by Pulse oximetry Systolic blood pressure Diastolic blood pressure Provider Name and Address Organization Details Last Updated DateTime 2 157.48 cm 79 /min 98 % 98 % 149 mm[Hg] 75 mm[Hg] Eden Benedict [place] - [facility] 2 14:01:32 Date Recorded Body height Body mass index (BMI) Body weight Heart rate Oxygen saturation Oxygen saturation in Arterial blood by Pulse oximetry Pain severity - 0-10 verbal numeric rating [Score] - Reported Systolic blood pressure Diastolic blood pressure Provider Name and Address Organization Details Last Updated DateTime 2 157.48 cm 36.4 kg/m2 42084.8 8 g 80 /min 94 % 94 % 10 162 mm[Hg] 81 mm[Hg] Jagruti farfan MD [address] , [address], [place], [address], [place] [facility] 2 11:23:01 Social History Question Answer Notes LastModified by Organizat ion Details LastModified Time Tobacco Smoking Status Former Smoker quit x 12 years Not Available [facility] 06/26/2020 03:16:11 What Is Your Level Of Alcohol Consumption? Occasional [id number] Information not available 06/26/2020 Are You Currently Employed? No [id number] Information not available 06/26/2020 Which Illicit Or Recreational Drugs Have You Used? No [id number] Information not available 06/26/2020 Education 12 Information no t available 09/14/2018 What Is Your Occupation? Disability [id number] Information not available 06/26/2020 Live Alone Or With Others? With Others Information not available 09/14/2018 Marital Status Informatio n not available 09/14/2018 What Was The Date Of Your Most Recent Tobacco Screening? 03/27/2019 [id number] Information not available 06/26/2020 How Many Years Have You Smoked Tobacco? 20 [id number] Information not available 06/26/2020 Sex: Unknown Functional [...] SNOMED-CT Code Diagnosis ICD10 Code Diagnosis Note [id number] Jagruti Elizabeth MD PAIN OFFICE [address] [place] [address] 09/14/2018 09:20:14 09/14/2018 12:05:18 Lumbosacral spondylosis without myelopathy 28173351 M47.817 Lumbar radiculopathy 128 224566 M54.16 Degenerati on of lumbar intervertebral disc 24498833 M51.36 10945 Jagruti Elizabeth MD PAIN OFFICE [address] [place] [address] 10/09/2018 08:54:37 10/09/2018 10:59:45 Lumbosacral spondylosis without myelopathy 99680699 M47.817 Lumbar radiculopathy 128 690290 M54.16 Degenerati on of lumbar intervertebral disc 92075379 M51.36 96817 Jagruti Elizabeth MD PAIN OFFICE [address] [place] [address] 11/08/2018 08:45:11 11/08/2018 11:03:12 Lumbosacral spondylosis without myelopathy 61164613 M47.817 Lumbar radiculopathy 128 260575 M54.16 Degenerati on of lumbar intervertebral disc 75307839 M51.36 32060 Jagruti Elizabeth MD PAIN OFFICE [address] [address] 03/26/2019 13:44:21 03/27/2019 16:06:04 Lumbosacral spondylosis without myelopathy 35492732 M47.817 Lumbar radiculopathy 128 238175 M54.16 Degenerati on of lumbar intervertebral disc 65753173 M51.36 77581 Jagruti Elizabeth MD PAIN OFFICE [address] [address] 04/02/2019 14:22:38 04/03/2019 11:57:34 Lumbosacral spondylosis without myelopathy 18630421 M47.817 Lumbar radiculopathy 128 081998 M54.16 Degenerati on of lumbar intervertebral disc 49494023 M51.36 83629 Jagruti Elizabeth MD PAIN OFFICE [address] [address] 05/06/2019 10:21:08 05/15/2019 11:02:55 Degeneration of cervical intervertebral disc 95098426 M50.30 Muscle pain 74349859 M79 .18 Degenerati on of lumbar intervertebral disc 25747316 M51.36 Lumbar radiculopathy 128 175069 M54.16 Lumbosacra l spondylosis without myelopathy 45902146 M47.817 29574 Jagruti Elizabeth MD PAIN OFFICE [address] [place] [address] 05/15/2019 13:13:23 05/15/2019 14:18:15 Degeneration of cervical intervertebral disc 94179964 M50.30 Muscle pain 98025937 M79 .18 Degenerati on of lumbar intervertebral disc 89295837 M51.36 Lumbar radiculopathy 128 998261 M54.16 Lumbosacra l spondylosis without myelopathy 51508652 M47.817 37641 Jagruti Elizabeth MD PAIN OFFICE [address] [address] 05/30/2019 12:55:57 05/30/2019 13:33:51 Degeneration of cervical intervertebral disc 71569056 M50.30 Muscle pain 18880309 M79 .18 Degenerati on of lumbar intervertebral disc 97295640 M51.36 Lumbar radiculopathy 128 922834 M54.16 Lumbosacra l spondylosis without myelopathy 43026419 M47.817 54915 Jagruti Elizabeth MD PAIN OFFICE [address] [place] [address] 06/12/2019 11:37:11 06/24/2019 16:57:19 Degeneration of cervical intervertebral disc 30648943 M50.30 Muscle pain 48566062 M79 .18 Degenerati on of lumbar intervertebral disc 95891689 M51.36 Lumbar radiculopathy 128 574558 M54.16 Lumbosacra l spondylosis without myelopathy 73613913 M47.817 22514 Jagruti Elizabeth MD PAIN OFFICE [address] [place] [address] 10/23/2019 13:52:47 10/23/2019 14:42:33 Lumbosacral spondylosis without myelopathy 34669270 M47.817 Lumbar radiculopathy 128 749952 M54.16 Degenerati on of lumbar intervertebral disc 82877705 M51.36 17094 Jagruti Elizabeth MD PAIN OFFICE [address] [place] [address] 06/30/2020 08:32:55 06/30/2020 08:45:50 Lumbosacral spondylosis without myelopathy 13743263 M47.817 Lumbar radiculopathy 128 460721 M54.16 Degenerati on of lumbar intervertebral disc 70309730 M51.36 47440 Jagruti Elizabeth MD PAIN OFFICE [address] [place] [address] 07/21/2020 15:28:07 07/21/2020 15:57:40 Lumbosacral spondylosis without myelopathy 40146702 M47.817 Lumbar radiculopathy 128 954167 M54.16 Degenerati on of lumbar intervertebral disc 40137236 M51.36 01608 Jagruti Elizabeth MD PAIN OFFICE [address] [place] [address] 08/17/2020 09:19:36 08/17/2020 09:24:43 Lumbosacral spondylosis without myelopathy 61746697 M47.817 Lumbar radiculopathy 128 620766 M54.16 Degenerati on of lumbar intervertebral disc 38550486 M51.36 97419 Jagruti Elizabeth MD PAIN OFFICE [address] [employer] [facility] [place] [address] 12/28/2020 15:16:05 12/29/2020 08:21:36 Muscle pain 65940211 M79.18 51744 Jagruti Elizabeth MD PAIN OFFICE [address] [facility] [place] [address] 06/29/2021 10:22:54 06/29/2021 13:59:36 Lumbosacral spondylosis without myelopathy 21916982 M47.817 Lumbar radiculopathy 128 773748 M54.16 Degenerati on of lumbar intervertebral disc 90129123 M51.36 41674 Jagruti Elizabeth MD PAIN OFFICE [address] [employer] [address] [facility] [place] [address] 08/09/2021 11:55:52 08/09/2021 13:16:05 Lumbosacral spondylosis without myelopathy 11259393 M47.817 Lumbar radiculopathy 128 303377 M54.16 Degenerati on of lumbar intervertebral disc 24218001 M51.36 91609 Jagruti Elizabeth MD PAIN OFFICE [address] [employer] [address] [facility] [address] 01/12/2022 13:35:53 01/15/2022 10:59:14 Inflammation of joint of shoulder region 477075896 M13.819 Subacromia l bursitis of left shoulder 4117617059 566909 M75.52 96830 Jagruti Elizabeth MD PAIN OFFICE [address] [employer] [facility] [place] [address] 01/24/2022 11:13:47 01/24/2022 16:09:39 Inflammation of joint of shoulder region 160850404 M13.819 Subacromia l bursitis of left shoulder 8666891817 522544 M75.52 Health Concerns Section Related Observation LastModified by Organization Detai ls LastModified Time None Recorded Concern Status LastModified by Organization Details LastModified Time None Recorded Advance Directives Directive None Recorded Payers Encounter Date Sequence Insurance Name Policy Number Policy Orta Covered Member ID Orta Member ID Guarantor Name 12/28/2020 2 [facility] [id number] Ya Cameron [id number] Ya Cameron 12/28/2020 1 MEDICARE B-[place]: [facility] Ya B Cameron [id number] Ya Crouchs 06/29/2021 2 [facility] [id number] Ya Crouchs [id number] Ya Crouchs 06/29/2021 1 [place]ARE B-[place]: [facility] Ya B Cameron [id number] Ya Crouchs 08/09/2021 2 [facility] [id number] Ya Crouchs [id number] Ya Crouchs 08/09/2021 1 MEDICARE B-[place]: [facility] Ya B Cameron [id number] Ya Crouchs 01/12/2022 2 [facility] [id number] Ya Crouchs [id number] Ya Crouchs 01/12/2022 1 [place]: [facility] Ya B Cameron [id number] Ya Crouchs 01/24/2022 2 [facility] [id number] Ya Crouchs [id number] Ya Crouchs 01/24/2022 1 MEDICARE B-MD: [facility] Ya B Cameron [id number] Ya Crouchs Notes Date Note Type Note Provider Name [...] bladder or bowel incontinence.She was seen at [facility] and had imaging done. Results are not available today. Jagruti Elizabeth MD [address] [facility] , [address], [place], [address], [place] - [facility] 12/30/2020 08:57:28 06/29/2021 text/html She is here for a lumbar epidural steroid injection under fluoroscopic guidance. She had a fall in [facility] and has been having an exacerbation of her pain. She was seen at [facility]. No recent X-rays. Jagruti Elizabeth MD [address] [facility] , [address], [place], [address], [place] - [facility] 06/30/2021 08:52:14 08/09/2021 text/html This is a follow up after a lumbar epidural steroid injection under fluoroscopic guidance. She reports 70-80% pain benefit which is ongoing. She has stiffness in the morning which improves with stretching. She is walking better . Jagruti Elizabeth MD [address] [facility] , [address], [place], [address], [place] - [facility] 08/11/2021 09:15:50 01/12/2022 text/html She is here for a follow up. She was last seen on 07/01 for a lumbar epidural steroid injection under fluoroscopic guidance. She reports good pain benefit. She is complaining of left shoulder pain . She has seen Dr. Rodriguez , orthopedic surgeon at [facility] for her pain. He recommend a left shoulder steroid injection under ultrasound guidance. She has been having shoulder pain for the past five years . She is having a difficult time lifting her arm over her head.MRI left shoulder shows mild supraspinatus tendonitis and minimal distal inferior spinatus calcific tendonitis. Mild glenohumeral arthritis. Jagruti Elizabeth MD [address] [facility] , [address], [place], [address], [place] - [facility] Management 01/15/2022 11:05:58 01/24/2022 text/html She is here for a left shoulder steroid injection under ultrasound guidance Jagruti Elizabeth MD [address] [facility] , [address], [place], [address], [facility] 01/24/2022 16:37:45 OBGyn Episode No OBEpisode recorded.
--- OUTSIDE RECORDS SUMMARY | 2024-12-13 08:04 | XMS_ITS | Patient Health Record ---
Author Organization [facility] Address [address] [place] [address] Care Team Providers Care Anvilsmith Name Role Phone Abdias QUIROZ, Flakita Bowens Primary Care Provider Un available Elena Mejia Unavailable [phone] Allergies Allergen (clinical drug ingredient) Drug/Non Drug [...] Problem Type II diabetes mellitus without complication (949923801) Type 2 diabetes mellitus without complications (E11.9) Active confirmed Problem 04541907 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 (M19.072) Active confirmed Plan Of Treatment Pending Test Test Name Order Date X ray : Foot, left 3V 07/07/2021 [id number] NAIL, 1-5 06/06/2016 71174-Gxwjgvky Plate 01/17/2017 49640-Qlpvvtxi Plate 05/23/2016 40070-KKI 06/13/2017 79727- Debride <25 sq cm 07/21/2015 55967- Debride <25 sq cm 07/11/2017 69151- Debride <25 sq cm 07/25/2017 13697-RUYCTQL SKIN/TISSUE 06/27/2017 49045 I&D ABSCESS- SIMPLE,SINGLE 015 30022 I&D ABSCESS- SIMPLE,SINGLE 015 Insurance Providers Payer Name Payer Address Payer Phone Subscriber Number Group Number Insured Name Patient Relationship to Insured Coverage Start Date Coverage End Date Medicare [employer] [address] [place] [address] [id number] Ya Cameron Self - patient is the insured [facility] [address] [place] [address] [id number] Ya Cameron Self - patient is the [...]
--- OUTSIDE RECORDS SUMMARY | 2024-12-13 08:04 | XMS_ITS | Clinical Summary ---
Author Organization [facility] Address [address] [place] [address] Care Team Providers Care Potato Sorter Name Role Phone Flakita Calero MD Primary Care Provider [phone] Allergies Active Allergy Reactions Criticality Noted Date [...] age to complete this topic Care Teams Potato Sorter Relationship Specialty Start Date End Date Flakita Calero MD [address] [place] [id number] PCP - General Internal Medicine 10/27/17
== END ==
LOC: HO.CARD 07:56
PROVIDERS: PCP Internal Medicine; Visit Provider Internal Medicine Cardiovascular Disease
DX: R07.89 Other chest pain (principal)
CPT/HCPCS: 78452; 93017; A9500; J0280; J2785

== ENCOUNTER → 2024-12-13 08:01 | Outpatient (BNV) | payer MEDICARE, OTHER, SELFPAY | PROVIDERS: PCP Internal Medicine | DX: R06.02 Shortness of breath (principal); R00.2 Palpitations | CPT/HCPCS: 78452; 93016; 93018 ==

== ENCOUNTER 2025-01-06 08:32 | Outpatient (REF) | payer MEDICARE, OTHER, SELFPAY ==
--- NOTE | ~2025-01-06 | XR_ITS ---
CLINICAL HISTORY: S82.90XK - Unspecified fracture of unspecified lower leg, subsequent enc... Left tibia fibula two views Comparison: None Findings: Status post fixation distal tibial and fibular fractures. Fixation hardware is intact. Partially healed fractures remain visible. There is normal anatomic alignment. Impression: Healing fractures post fixation as above This document has been electronically signed by: Preet Ibarra MD on 01/08/2025 18:08:56
--- OUTSIDE RECORDS SUMMARY | 2025-01-06 09:01 | XMS_ITS | Patient Health Record ---
Author Organization [facility] Address [address] [place] [address] Care Team Providers Care Progressive Care Unit Registered Nurse Name Role Phone Abidas QUIROZ, Flakita Bowens Primary Care Provider Un available Elena Mejia Unavailable [phone] Allergies Allergen (clinical drug ingredient) Drug/Non Drug [...] Problem Type II diabetes mellitus without complication (158800463) Type 2 diabetes mellitus without complications (E11.9) Active confirmed Problem 14901277 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 (M19.072) Active confirmed Plan Of Treatment Pending Test Test Name Order Date X ray : Foot, left 3V 07/07/2021 [id number] NAIL, 1-5 06/06/2016 09911-Spbulohy Plate 01/17/2017 59897-[id number] Plate 05/23/2016 94840-AXS 06/13/2017 24593- Debride <25 sq cm 07/21/2015 83944- Debride <25 sq cm 07/11/2017 31804- Debride <25 sq cm 07/25/2017 24586-VMHZRPC SKIN/TISSUE 06/27/2017 05200 I&D ABSCESS- SIMPLE,SINGLE 015 [id number] I&D ABSCESS- SIMPLE,SINGLE 015 Insurance Providers Payer Name Payer Address Payer Phone Subscriber Number Group Number Insured Name Patient Relationship to Insured Coverage Start Date Coverage End Date Medicare [employer] [address] [place] [address] [id number] Ya Cameron Self - patient is the insured [facility] [address] [place] [address] [id number] Ya Cameron Self - patient is the [...]
--- OUTSIDE RECORDS SUMMARY | 2025-01-06 09:01 | XMS_ITS | Clinical Summary ---
Author Organization [facility] Address [address] [place] [address] Care Team Providers Care Comic Book Writer Name Role Phone Flakita Calero MD Primary Care Provider [phone] Allergies Active Allergy Reactions Criticality Noted Date [...] age to complete this topic Care Teams Comic Book Writer Relationship Specialty Start Date End Date Flakita Calero MD [address] [place] [id number] PCP - General Internal Medicine 10/27/17
--- OUTSIDE RECORDS SUMMARY | 2025-01-06 09:01 | XMS_ITS | Data Portability ---
Author Organization [facility] Pain Managem ent, PAIN OFFICE Address [address] [address] [place] [address] Care Team Providers Care Tire Repair Mechanic Name Role Phone LIZ LOPEZ Primary Care [...] results of the imaging studies done at [facility]. [email or web address] Not available 12/29/2020 08:21:00 06/29/2021 [...] made for the same. 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 15 minutes was spent on this call and greater than 50% of the visit was spent on counseling and coordination of care [email or web address] Not available 12/29/2020 08:16:48 06/29/2021 64857 She was advised against bed rest lasting longer than four days and to continue activities as tolerated. [email or web address] Not available 06/29/2021 13:50:55 08/09/2021 29096 She was advised against bed rest lasting [...] care. [email or web address] Not available 08/09/2021 11:56:59 01/12/2022 62453 She was advised against bed rest lasting longer than four days and to continue activities as tolerated. [email or web address] Not available 01/15/2022 10:55:55 01/24/2022 05774 She was advised against bed rest lasting longer than four days and to continue activities as tolerated. [email or web address] Not available 01/24/2022 16:06:51 Reason for Referral None Reported. Problems Name Problem SNOMED Code Status Onset Date Resolution Date Notes Provider Name and Address Organization Details Recorded Time Degeneration of lumbar intervertebral disc [id number] Geovanna farfan MD [address] [facility] , [address], [facility] [place], [address] , [place] [facility] 11:51:41 Lumbar radiculopathy 892868793 Geovanna farfan MD [address] , [address], [facility] [place], [address], [place] [facility] 9 11:53:15 Lumbosacral spondylosis without myelopathy 44460614 Active Jagruti farfan MD [address] , [address], [place], [address], [place] [facility] 9 11:53:34 Degeneration of cervical intervertebral disc 69228783 Active Jagruti farfan MD [address] [facility] , [address], [facility] [place], [address], [place] [facility] 9 09:02:31 Muscle pain 10943018 Active Jagruti farfan MD [address] [facility] , [address], [facility] [place], [address], [place] [facility] 9 09:02:41 Problem Notes None recorded. Procedures Surgical History Date Name Laterality Status Provider Name and Address Organization Details Recorded Time 01/25/20 22 Intra-articular shoulder steroid injection under ultrasound guidance completed Jagruti Elizabeth MD [address] [facility] , [address], [place], [address], [place] [facility] 01/24/2022 16:06:02 06/29/20 21 Lumbar Epidural steroid injection under fluoroscopic guidance completed Jagruti Elizabeth MD [address] [facility] , [address], [place], [address], [place] [facility] 06/29/2021 13:51:52 07/21/20 20 Lumbar Epidural steroid injection under fluoroscopic guidance completed Jagruti Elizabeth MD [address] [facility] , [address], [place], [address], [place] [facility] 07/21/2020 15:54:12 10/23/19 20 Lumbar Epidural steroid injection under fluoroscopic guidance completed Jagruti Elizabeth MD [address] [facility] , [address], [place], [address], [place] [facility] 10/23/2019 14:39:47 05/30/20 19 Trigger Point Injections under ultrasound guidance completed Jagruti Elizabeth MD [address] , [address], [place], [address], [place] [facility] 05/30/2019 13:31:49 05/15/20 19 Trigger Point Injections under ultrasound guidance completed Jagruti Elizabeth MD [address] [facility] , [address], [place], [address], [place] [facility] 05/15/2019 14:15:41 04/02/20 19 Lumbar Epidural steroid injection under fluoroscopic guidance completed Jagruti Elizabeth MD [address] [facility] , [address], [place], [address], [place] [facility] 04/03/2019 08:35:11 10/09/19 19 Lumbar Epidural steroid injection under fluoroscopic guidance completed Jagruti Elizabeth MD [address] [facility] , [address], [place], [address], [place] [facility] 10/09/2018 [...] Name and Address Organization Details Recorded Time 98632 Iodinated contrast media (substanc e) medicatio n rash Not available Not available 09/14/2018 36829 2004 SNOMED < great er 21 years [...] Updated DateTime 1 157.48 cm 36.4 kg/m2 50639.8 8 g 84 /min 96 % 96 % 121 mm[Hg] 75 mm[Hg] Eden Mcmullen [place] [facility] 1 10:30:30 Date Recorded Body height Provider Name an d Address Organization Details Last Updated DateTime 08/09/2021 157.48 cm Jagruti Elizabeth MD [address] , [address], [place], [address], [place] [facility] 08/09/2021 11:57:31 [...] Updated DateTime 2 157.48 cm 36.4 kg/m2 26772.8 8 g 80 /min 94 % 94 % 10 162 mm[Hg] 81 mm[Hg] Jagruti farfan MD [address] , [address], [place], [address], [place] [facility] 2 11:23:01 Social History Question Answer Notes LastModified by Organizat ion Details LastModified Time Tobacco Smoking Status Former Smoker quit x 12 years Not Available [facility] 06/26/2020 03:16:11 What Is Your Level Of Alcohol Consumption? Occasional [id number] Information not available 06/26/2020 Are You Currently Employed? No [id number] Information not available 06/26/2020 Which Illicit Or Recreational Drugs Have You Used? No [id number] Information not available 06/26/2020 Education 12 Information no t available 09/14/2018 What Is Your Occupation? Disability [id number] Information not available 06/26/2020 Live Alone Or With Others? With Others Information not available 09/14/2018 Marital Status Informatio n not available 09/14/2018 What Was The Date Of Your Most Recent Tobacco Screening? 03/27/2019 [id number] Information not available 06/26/2020 How Many Years Have You Smoked Tobacco? 20 [id number] Information not available 06/26/2020 Sex: Unknown Functional [...] SNOMED-CT Code Diagnosis ICD10 Code Diagnosis Note [id number] Jagruti Elizabeth MD PAIN OFFICE [address] [place] [address] 09/14/2018 09:20:14 09/14/2018 12:05:18 Lumbosacral spondylosis without myelopathy 66430801 M47.817 Lumbar radiculopathy 128 776859 M54.16 Degenerati on of lumbar intervertebral disc 75161753 M51.36 [id number] Jagruti Elizabeth MD PAIN OFFICE [address] [place] [address] 10/09/2018 08:54:37 10/09/2018 10:59:45 Lumbosacral spondylosis without myelopathy 28447505 M47.817 Lumbar radiculopathy 128 463889 M54.16 Degenerati on of lumbar intervertebral disc 08809448 M51.36 [id number] Jagruti Elizabeth MD PAIN OFFICE [address] [place] [address] 11/08/2018 08:45:11 11/08/2018 11:03:12 Lumbosacral spondylosis without myelopathy 01746157 M47.817 Lumbar radiculopathy 128 251215 M54.16 Degenerati on of lumbar intervertebral disc 77770941 M51.36 [id number] Jagruti Elizabeth MD PAIN OFFICE [address] [address] 03/26/2019 13:44:21 03/27/2019 16:06:04 Lumbosacral spondylosis without myelopathy 56429536 M47.817 Lumbar radiculopathy 128 396245 M54.16 Degenerati on of lumbar intervertebral disc 60011097 M51.36 [id number] Jagruti Elizabeth MD PAIN OFFICE [address] [address] 04/02/2019 14:22:38 04/03/2019 11:57:34 Lumbosacral spondylosis without myelopathy 19930939 M47.817 Lumbar radiculopathy 128 226344 M54.16 Degenerati on of lumbar intervertebral disc 75169341 M51.36 00633 Jagruti Elizabeth MD PAIN OFFICE [address] [address] 05/06/2019 10:21:08 05/15/2019 11:02:55 Degeneration of cervical intervertebral disc 00890261 M50.30 Muscle pain 79488916 M79 .18 Degenerati on of lumbar intervertebral disc 58813288 M51.36 Lumbar radiculopathy 128 146998 M54.16 Lumbosacra l spondylosis without myelopathy 15859367 M47.817 08896 Jagruti Elizabeth MD PAIN OFFICE [address] [place] [address] 05/15/2019 13:13:23 05/15/2019 14:18:15 Degeneration of cervical intervertebral disc 22642681 M50.30 Muscle pain 90802020 M79 .18 Degenerati on of lumbar intervertebral disc 51458968 M51.36 Lumbar radiculopathy 128 849085 M54.16 Lumbosacra l spondylosis without myelopathy 50921320 M47.817 73274 Jagruti Elizabeth MD PAIN OFFICE [address] [address] 05/30/2019 12:55:57 05/30/2019 13:33:51 Degeneration of cervical intervertebral disc 86256522 M50.30 Muscle pain 34232025 M79 .18 Degenerati on of lumbar intervertebral disc 40704524 M51.36 Lumbar radiculopathy 128 258442 M54.16 Lumbosacra l spondylosis without myelopathy 01838204 M47.817 09262 Jagruti Elizabeth MD PAIN OFFICE [address] [place] [address] 06/12/2019 11:37:11 06/24/2019 16:57:19 Degeneration of cervical intervertebral disc 08010953 M50.30 Muscle pain 63325939 M79 .18 Degenerati on of lumbar intervertebral disc 80808766 M51.36 Lumbar radiculopathy 128 659615 M54.16 Lumbosacra l spondylosis without myelopathy 81026347 M47.817 00082 Jagruti Elizabeth MD PAIN OFFICE [address] [place] [address] 10/23/2019 13:52:47 10/23/2019 14:42:33 Lumbosacral spondylosis without myelopathy 52583277 M47.817 Lumbar radiculopathy 128 140093 M54.16 Degenerati on of lumbar intervertebral disc 18607332 M51.36 [id number] Jagruti Elizabeth MD PAIN OFFICE [address] [place] [address] 06/30/2020 08:32:55 06/30/2020 08:45:50 Lumbosacral spondylosis without myelopathy 71546909 M47.817 Lumbar radiculopathy 128 992285 M54.16 Degenerati on of lumbar intervertebral disc 92149942 M51.36 [id number] Jagruti Elizabeth MD PAIN OFFICE [address] [place] [address] 07/21/2020 15:28:07 07/21/2020 15:57:40 Lumbosacral spondylosis without myelopathy 03586929 M47.817 Lumbar radiculopathy 128 257077 M54.16 Degenerati on of lumbar intervertebral disc 68382383 M51.36 31088 Jagruti Elizabeth MD PAIN OFFICE [address] [place] [address] 08/17/2020 09:19:36 08/17/2020 09:24:43 Lumbosacral spondylosis without myelopathy 46584259 M47.817 Lumbar radiculopathy 128 683900 M54.16 Degenerati on of lumbar intervertebral disc 25293293 M51.36 [id number] Jagruti Elizabeth MD PAIN OFFICE [address] [facility] [place] [address] 12/28/2020 15:16:05 12/29/2020 08:21:36 Muscle pain 09434662 M79.18 34982 Jagruti Elizabeth MD PAIN OFFICE [address] [facility] [place] [address] 06/29/2021 10:22:54 06/29/2021 13:59:36 Lumbosacral spondylosis without myelopathy 44996145 M47.817 Lumbar radiculopathy 128 536523 M54.16 Degenerati on of lumbar intervertebral disc 32111573 M51.36 [id number] Jagruti Elizabeth MD PAIN OFFICE [address] [facility] [place] [address] 08/09/2021 11:55:52 08/09/2021 13:16:05 Lumbosacral spondylosis without myelopathy 24044830 M47.817 Lumbar radiculopathy 128 648566 M54.16 Degenerati on of lumbar intervertebral disc 55362517 M51.36 [id number] Jagruti Elizabeth MD PAIN OFFICE [address] [facility] [place] [address] 01/12/2022 13:35:53 01/15/2022 10:59:14 Inflammation of joint of shoulder region 331371646 M13.819 Subacromia l bursitis of left shoulder 3745989402 752612 M75.52 [id number] Jagruti Elizabeth MD PAIN OFFICE [address] [facility] [place] [address] 01/24/2022 11:13:47 01/24/2022 16:09:39 Inflammation of joint of shoulder region 046419960 M13.819 Subacromia l bursitis of left shoulder 8923184762 836844 M75.52 Health Concerns Section Related Observation LastModified by Organization Detai ls LastModified Time None Recorded Concern Status LastModified by Organization Details LastModified Time None Recorded Advance Directives Directive None Recorded Payers Encounter Date Sequence Insurance Name Policy Number Policy Orta Covered Member ID Orta Member ID Guarantor Name 12/28/2020 2 [facility] [id number] Ya Cameron [id number] Ya Cameron 12/28/2020 1 [place] [facility] Ya B Cameron [id number] Ya Crouchs 06/29/2021 2 [facility] [id number] Ya Crouchs [id number] Ya Crouchs 06/29/2021 1 [place] [facility] Ya B Cameron [id number] Ya Crouchs 08/09/2021 2 [facility] [id number] Ya Crouchs [id number] Ya Crouchs 08/09/2021 1 [place] [facility] Ya B Cameron [id number] Ya Crouchs 01/12/2022 2 [facility] [id number] Ya Crouchs [id number] Ya Crouchs 01/12/2022 1 [place] [facility] Ya B Cameron [id number] Ya Crouchs 01/24/2022 2 [facility] [id number] Ya Crouchs [id number] Ya Crouchs 01/24/2022 1 [place] [facility] Ya B Cameron [id number] Ya Crouchs Notes Date Note Type Note [...] bladder or bowel incontinence.She was seen at [facility] and had imaging done. Results are not available today. Jagruti Elizabeth MD [address] [facility] , [address], [place], [address], [place] - [facility] 12/30/2020 08:57:28 06/29/2021 text/html She is here for a lumbar epidural steroid injection under fluoroscopic guidance. She had a fall in [facility] and has been having an exacerbation of her pain. She was seen at [facility]. No recent X-rays. Jagrtui Elizabeth MD [address] [facility] , [address], [place], [address], [place] [facility] 06/30/2021 08:52:14 08/09/2021 text/html This is a follow up after a lumbar epidural steroid injection under fluoroscopic guidance. She reports 70-80% pain benefit which is ongoing. She has stiffness in the morning which improves with stretching. She is walking better . Jagruti Elizabeth MD [address] [facility] , [address], [place], [address], [place] - [facility] 08/11/2021 09:15:50 01/12/2022 text/html She is here for a follow up. She was last seen on 07/01 for a lumbar epidural steroid injection under fluoroscopic guidance. She reports good pain benefit. She is complaining of left shoulder pain . She has seen Dr. Rodriguez , orthopedic surgeon at [facility] for her pain. He recommend a left shoulder steroid injection under ultrasound guidance. She has been having shoulder pain for the past five years . She is having a difficult time lifting her arm over her head.MRI left shoulder shows mild supraspinatus tendonitis and minimal distal inferior spinatus calcific tendonitis. Mild glenohumeral arthritis. Jagruti Elizabeth MD [address] [facility] , [address], [place], [address], [place] - [facility] [place] 01/15/2022 11:05:58 01/24/2022 text/html She is here for a left shoulder steroid injection under ultrasound guidance Jagruti Elizabeth MD [address] [facility] , [address], [place], [address], [facility] 01/24/2022 16:37:45 OBGyn Episode No OBEpisode recorded.
--- OUTSIDE RECORDS SUMMARY | 2025-01-06 09:01 | XMS_ITS | Clinical Summary ---
Author Organization [email or web address] ity Address [address] [place] [address] Care Team Providers Care Linux Consultant Name Role Phone Flakita Calero MD Primary Care Provider Surgical History Surgery Date Site/Laterality Comments NECK SURGERY PROCEDURE:NECK SURGERY SHOULDER SURGERY PROCEDURE:SHOULDER SURGERY Medical History Medical History Date Comments Diabetes mellitus (CMS/HCC V24, CMS/HCC V28) DX:Diabetes mellitus (HCC) Hypertension DX:Hypertension Arthritis DX:Arthritis Family [...] - 2023-2 5 season) 2024 Influenza Vaccine (Season Ended) 2025 RSV Immunization Adult Patie nts (1 - [...] age to complete this topic Meningococcal B Vaccine Aged Out No l onger eligible based on patient's age to complete [...] age to complete this topic Care Teams Linux Consultant Relationship Specialty Start Date End Date Flakita Calero MD [address] [place] [address] PCP - General 02/15/08
== END 2025-01-06 08:33 | disposition home or self-care (01) ==
LOC: HO.HOSX 08:32
PROVIDERS: Visit Provider Orthopaedic Surgery
DX: S82.302K Unspecified fracture of lower end of left tibia, subsequent encounter for closed fracture with nonunion (principal); S82.832K Other fracture of upper and lower end of left fibula, subsequent encounter for closed fracture with nonunion; Z86.718 Personal history of other venous thrombosis and embolism; Z79.01 Long term (current) use of anticoagulants
CPT/HCPCS: 73590; 99212

== ENCOUNTER 2025-01-06 08:53 | Outpatient (AMB) | payer MEDICARE, OTHER, SELFPAY ==
--- NOTE | 2025-01-06 08:58 | A.OFFVIS_ITS ---
Vital Signs 01/06/25 09:06 Height 5 ft 2 in Weight 209 lb BMI 38.2 Intake Visit Reasons: OV - Left Tib/Fib ORIF 09/16/23 Intake Note: Ya is a 64 year old female who presents today for a follow up of her left ankle, Tibial Shaft non - union. Left Tib/Fib ORIF 09/16/23. She reports that she has been using the bone stimulator, today we are discussing possible RAISSA. Patient reports that she is feeling pain where the hardware is. She continues to use the bone stimulator. She gets some numbness at the top of the ankle. Wants to discuss RAISSA Allergies Iodinated Contrast Media [IV CONTRAST] Adverse Reaction (Intermediate, Verified 01/06/25 08:58) Rash capsaicin Adverse Reaction (Verified 01/06/25 08:58) Rash perflutren [From Definity] Adverse Reaction (Verified 01/06/25 08:58) Back Pain HPI HPI OV - Left Tib/Fib ORIF 09/16/23: Details: Ya is a 64 year old female who presents today for a follow up of her left ankle, Tibial Shaft non - union. Left Tib/Fib ORIF 09/16/23. She reports that she has been using the bone stimulator, today we are discussing possible RAISSA. Patient reports that she is feeling pain where the hardware is. She continues to use the bone stimulator. She gets some numbness at the top of the ankle. Wants to discuss RAISSA. [facility] Medical History (Updated 11/04/24 @ 10:58 by Danilo Rodriguez MD) Type 2 diabetes mellitus with hyperglycemia, without long-term current use of insulin Preoperative examination Current use of snf anticoagulation History of abnormal cervical Pap smear Prolapse of female pelvic organs Prepatellar bursitis Primary hypertension Generalized anxiety disorder COPD (chronic obstructive pulmonary disease) History of COVID-19 Depression, major, recurrent, in complete remission Herpes zoster Left shoulder tendinitis GERD (gastroesophageal reflux disease) Calcaneal spur of left foot Arthritis of first metatarsophalangeal (MTP) joint of left foot Deviated nasal septum History of pulmonary embolism History of thyroid cancer Essential hypertension Dyslipidemia Surgical History History of fusion of cervical spine Status post open reduction and internal fixation (ORIF) of fracture (~09/16/23) Hx of left breast biopsy History of partial thyroidectomy History of surgery History of cervical spinal surgery History of shoulder surgery History of colonoscopy History of tubal ligation H/O spinal fusion Family History Father Alcoholism Mother HTN (hypertension) Hyperlipidemia CVD (cardiovascular disease) Sister Hyperlipidemia Alcoholism Substance use disorder Brother No problems noted. Sister No problems noted. Sister No problems noted. Sister No problems noted. Daughter No problems noted. Daughter No problems noted. 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 Social History Household Members: Significant Other Household Members Other:: 2 Housing: Apartment Do you presently have visiting nurse or other home services: No Alcohol intake: never Patient Tobacco Use Status: Former Tobacco user Years Smoked: 4 yrs e-Cigarette/Vaping Use: Never Used Second Hand Smoke Exposure: No Advance Directives Date on File: 11/08/22 service: No Current occupational status: disabled Cognitive needs: No Hearing needs: No Vision needs: Yes Physical Exam Vital Signs: BMI result Body Mass Index 38.2 Extrem Other: Incisions are well healed she has a 2+ dorsalis pedis pulse. She does have tenderness to palpation over the medial malleolus and less so over the tibial shaft at the level of the nonunion. There is minimal to no soft tissue swelling. She is walking without a walker with a mild antalgic gait. Results Reviewed Results Reviewed: I personally reviewed relevant radiographs. Radiographs demonstrate near complete healing but there is still 1 area on the lateral hip appears incompletely healed Assessment & Plan Assessment & Plan (1) Nonunion of fracture of lower leg: Code(s): S82.90XK - Unspecified fracture of unspecified lower leg, subsequent encounter for closed fracture with nonunion Category: Medical Plan: This is a pleasant 64-year-old well controlled diabetic with a nonunion of the tibia that does appear to be healing although it is not complete. I would recommend removal of hardware at this time. I think this will allow full healing of the fracture. I discussed with her that this should alleviate the symptoms that she is having of painful hardware as well as possible symptoms from incomplete healing although I suspect this is not the case. I discussed with her the risk of re fracture and that we need to be cautious in the 1st weeks to months after removal of hardware. I also discussed the risk of infection, incomplete symptom resolution. She is on Eliquis for a history of blood clot/pe. She expressed understanding and would like to proceed forward. Orders: Orders XR tibia fibula LT 2V Today S82.90XK - Unspecified fracture of unspecified lower leg, subsequent encounter for closed fracture with nonunion Coding Level of Care Code Est Pt Level 4 (13209) Diagnoses Nonunion of fracture of lower leg S82.90XK
[2025-01-06 09:06] VITALS: BMI 38.2
--- OUTSIDE RECORDS SUMMARY | 2025-01-06 09:35 | XMS_ITS | Data Portability ---
Author Organization [place] [facility] Bhumika Rey AONE Coleman Address [address] [place] [address] Care Team Providers Care Heat Regulator Name Role Phone LIZ LOPEZ Primary Care [...] Left Knee Pain 2022 023 [facility], [address], [place], [address], 3 15:18:58 XR, knee, 1 or 2 view - Right Knee Pain 2022 023 [facility], [address], [place], [address], 3 15:18:58 XR, knee, weightbeari ng - Bilateral Knee Pain 2022 023 [facility], [address], [place], [address], 3 15:18:58 Medication Orders Kenalog 40 mg/mL suspension for injection 2022 023 [place] [address] [facility], [address] [place] [address], [address], 3 08:52:19 lidocaine (PF) 10 mg/mL (1 %) injection solution 2022 023 [place] [address] [facility], [address] [place] [address], [address], 3 08:52:23 Bactrim DS 800 mg-160 mg tablet 2022 023 [place] [address] [facility], [address] [place] [address], [address], 3 08:52:34 lidocaine (PF) 10 mg/mL (1 %) injection solution 2022 023 [place] [address] [facility], [address] [place] [address], [address], 3 08:52:23 Patient TargetsNo targets recorded. Patient Instructions Encounter Date Encounter Id Patient Instructions Last Modified By Organization Details Last Modified Time 04/27/2023 [id number] X-rays of both knees reveal overall well-maintained joint space with mild degenerative change without acute bony abnormality. Normal bone mineralization no obvious soft tissue findings are observed. Not available 04/28/2023 08:16:44 05/11/2023 [id number] You have been provided with a cortisone [...] Recorded Time Prepatellar bursitis of left knee 0520275962273 03 Active 2022 VIOLETTE CORRALES PA-C [address], [facility] [place], [address], [place] [facility] 3 14:06:33 Osteoarthri tis of left knee joint 1465940899387 09 Active 2022 VIOLETTE CORRALES PA-C [address], [facility] [place], [address], [place] [facility] 3 10:10:06 Synovial cyst of right knee 0398169141498 04 Active 2022 VIOLETTE CORRALES PA-C [address], [facility] [place], [address], [place] [facility] 3 09:39:52 Problem Notes None recorded. Procedures Surgical History Date Name Laterality Status Provider Name and Address Organization Details Recorded Time 05/11/2023 Knee Joint/Burs a Asp & Inj completed VIOLETTE CORRALES PA-C [address], [place], [address], [place] [facility] 05/11/2023 10:07:19 04/27/2023 Knee Joint/Burs a Asp & Inj completed VIOLETTE CORRALES PA-C [address] [place] [address], [place], [address], [place] [facility] 04/28/2023 08:13:06 Knee arthroscop y/surgery completed [place] [facility] 04/27/2023 13:25:28 Imaging Results None recorded. Procedure Notes None recorded. Medical Equipment None Reported. Allergies Allergen ID Allergen Name Allergen Category Reaction Reaction Severity Criticality Documentation Date Start Date Code Code System Note Provider Name and Address Organization Details Recorded Time 7279 Iodinated contrast media (substanc e) medicatio n Not available Not available Not available 04/27/2023 79458 2003 SNOMED [facility] [place] [facility] 13:24:08 Medications Name Sig Start Date [...] Last Updated DateTime 08/10/2023 157.48 [facility]10[facility] 08:53:04 Date Recorded Body height Body mass index (BMI) Body weight Provider Name and Address Organization Details Last Updated DateTime 04/27/2023 157.48 cm 36.4 kg/m2 93705.88 g Asha [place] [facility], 04/27/2023 13:24:24 Social History Question Answer Notes LastModified by Organizat ion Details LastModified Time Tobacco Smoking Status Never Smoker Asha [facility], P 04/27/2023 13:24:38 What Is [...] SNOMED-CT Code Diagnosis ICD10 Code Diagnosis Note [id number] [facility] [address] [place] [address] 04/27/2023 12:51:19 04/27/2023 14:11:04 Pain of left knee joint 9480937908 91762 M25.562 Pain of ri ght knee joint 4994621604 66869 M25.561 Pain of bi lateral knee joints 0591938791 80089 M25.561 Prepatella r bursitis of left knee 3836991849 15597 M70.42 [id number] MD LARRY Jeronimo [facility] [address] [place] [address] 05/11/2023 09:12:00 05/11/2023 10:08:57 Osteoarthritis of left knee joint 4184721222 60438 M17.12 [id number] MD LARRY Jeronimo [facility] [address] [facility] [address] [place] [address] 08/10/2023 08:41:03 08/10/2023 09:56:06 Synovial cyst of right knee 3934239186 56421 M71.21 Health Concerns Section Related Observation LastModified by Organization Detai ls LastModified Time None Recorded Concern Status LastModified by Organization Details LastModified Time None Recorded Advance Directives Directive None Recorded Payers Encounter Date Sequence Insurance Name Policy Number Policy Orta Covered Member ID Orta Member ID Guarantor Name 04/27/2023 1 MEDICARE B-[place]: [employer] Yasergio Cameron [id number] Ya Cameron 04/27/2023 2 [facility] [id number] Ya Cameron [id number] Ya Cameron 05/11/2023 1 [place]: [facility] Ya Cameron [id number] Ya Cameron 05/11/2023 2 [facility] [id number] 2 Ya Cameron [id number] Ya Cameron 08/10/2023 1 MEDICARE B-[place]: [facility] Ya Cameron [id number] Ya Cameron 08/10/2023 2 [facility] [id number] Ya Cameron [id number] Ya Cameron Notes Date Note Type Note [...] for evaluation and treatment. VIOLETTE CORRALES PA-C [address] [place] [address], [address], [place] [facility] 06/07/2023 13:07:40 05/11/2023 text/html Assessment & [...] going on vacation. VIOLETTE CORRALES PA-C [address] [facility] [address], [place], [address], [place] [facility] 05/11/2023 10:11:00 08/10/2023 text/html 63-year-old fema [...] shortness of breath. VIOLETTE CORRALES PA-C [address] [facility], [place], [address], [place] [facility] 08/10/2023 09:40:52 OBGyn Episode No OBEpisode recorded.
--- OUTSIDE RECORDS SUMMARY | 2025-01-06 09:35 | XMS_ITS | Clinical Summary ---
Author Organization [facility] Address [address] [place] [address] Care Team Providers Care Coverstitch Machine Operator Name Role Phone Flakita Calero MD Primary Care Provider [phone] Allergies Active Allergy Reactions Criticality Noted Date [...] age to complete this topic Care Teams Coverstitch Machine Operator Relationship Specialty Start Date End Date Flakita Calero MD [address] [place] [id number] PCP - General Internal Medicine 10/27/17
--- OUTSIDE RECORDS SUMMARY | 2025-01-06 09:35 | XMS_ITS | Clinical Summary ---
Author Organization [employer] [facility] ity Address [address] [place] [address] Care Team Providers Care Managed Care Analyst Name Role Phone Flakita Calero MD Primary [...] age to complete this topic Care Teams Managed Care Analyst Relationship Specialty Start Date End Date Flakita Calero MD [address] [place] [address] PCP - General 02/15/08
== END 2025-01-06 09:27 | disposition home or self-care (01) ==
LOC: HO.HOS 08:53
PROVIDERS: PCP Internal Medicine; Visit Provider Orthopaedic Surgery
DX: S82.252D Displaced comminuted fracture of shaft of left tibia, subsequent encounter for closed fracture with routine healing (principal); S82.452D Displaced comminuted fracture of shaft of left fibula, subsequent encounter for closed fracture with routine healing
CPT/HCPCS: 99214

== ENCOUNTER → 2025-01-06 08:55 | Outpatient (BNV) | payer MEDICARE, OTHER, SELFPAY | PROVIDERS: Visit Provider Radiology Diagnostic Radiology | DX: S82.92 Unspecified fracture of left lower leg (principal) | CPT/HCPCS: 73590 ==

== ENCOUNTER 2025-02-06 11:27 | Outpatient (AMB) | payer MEDICARE, OTHER, SELFPAY ==
--- NOTE | 2025-02-06 11:33 | A.OFFVIS_ITS ---
Vital Signs 02/06/25 11:36 Height 5 ft 2 in Weight 209 lb BMI 38.2 Intake Visit Reasons: Pre-Lt Tibia RAISSA 02/12/25 Intake Note: Ya is a 64 year old female who presents today for a pre op appointment for her left Tibial removal of hardware 02/12/25. Patient was given the pain management form. Allergies capsaicin Adverse Reaction (Intermediate, Verified 02/06/25 11:36) Rash Iodinated Contrast Media [IV Contrast Dye] Adverse Reaction (Intermediate, Verified 02/06/25 11:36) Rash perflutren [From Definity] Adverse Reaction (Intermediate, Verified 02/06/25 11:36) Rash HPI HPI Pre-Lt Tibia RAISSA 02/12/25: Details: Ms. Cameron is a 64-year-old female who presents to the office today for her preoperative history and physical examination for left tibia removal of hardware tentatively scheduled for 02/12/[address] Rodriguez. [facility] Medical History (Updated 01/29/25 @ 12:07 by Anne Lopes, RN) Neurodermatitis Thyroid cancer Type 2 diabetes mellitus with hyperglycemia, without long-term current use of insulin Current use of correction anticoagulation Prolapse of female pelvic organs Prepatellar bursitis Generalized anxiety disorder COPD (chronic obstructive pulmonary disease) Depression, major, recurrent, in complete remission Herpes zoster Left shoulder tendinitis GERD (gastroesophageal reflux disease) Calcaneal spur of left foot Arthritis of first metatarsophalangeal (MTP) joint of left foot Deviated nasal septum History of pulmonary embolism Essential hypertension Dyslipidemia Surgical History (Updated 01/29/25 @ 12:03 by Anne Lopes, RN) History of esophagogastroduodenoscopy (EGD) H/O colonoscopy Hx of blepharoplasty Status post open reduction and internal fixation (ORIF) of fracture (~09/16/23) History of fusion of cervical spine Hx of left breast biopsy History of partial thyroidectomy History of shoulder surgery History of tubal ligation Family History Father Alcoholism Mother HTN (hypertension) Hyperlipidemia CVD (cardiovascular disease) Sister Hyperlipidemia Alcoholism Substance use disorder Brother No problems noted. Sister No problems noted. Sister No problems noted. Sister No problems noted. Daughter No problems noted. Daughter No problems noted. 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 Social History Household Members: Significant Other Household Members Other:: 2 Housing: Apartment Are you a primary manager respiratory care to a significant other at home: No Do you presently have visiting nurse or other home services: No Alcohol intake: never Patient Tobacco Use Status: Former Tobacco user Tobacco use type: Cigarette Years Smoked: 20 e-Cigarette/Vaping Use: Never Used Second Hand Smoke Exposure: No Advance Directives Date on File: 11/08/22 service: No Current occupational status: disabled Cognitive needs: No Hearing needs: No Vision needs: Yes Review of Systems Const All systems reviewed & are unremarkable except as noted in HPI and below Physical Exam Vital Signs: BMI result Body Mass Index 38.2 Extrem Other: Incisions are well healed she has a 2+ dorsalis pedis pulse. She does have tenderness to palpation over the medial malleolus and less so over the tibial shaft at the level of the nonunion. There is minimal to no soft tissue swelling. She is walking without a walker with a mild antalgic gait. 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 Cameron is a 64-year-old female who presents to the office today for history and physical examination pending left tibia removal of hardware tentatively scheduled for 02/12/[address] Rodriguez. I discussed in detail the procedure and what to expect pre and post operatively. We discussed the risks, benefits and alternatives to the surgery as well as the rehabilitation course. The risks; which include, but are not limited to infection, bleeding, nerve injury, ongoing pain, swelling, and stiffness, perioperative risk of injury to bones and soft tissues, and blood clots. While in the office today, the patient was fit for a tall walking boot off the shelf. She may weightbear as tolerated in the boot after surgery. Additionally, I sent oxycodone-acetaminophen 5325 mg p.o. Q 6 hours 7 days PRN n umber 28 to the pharmacy to be obtained prior to surgery. Patient understands that this medication should be taken postoperatively and will not be refilled until the appropriate refill date. I?ve answered all questions and with their understanding they have consented to move forward with removal of orthopedic hardware left tibia to be performed by Dr. Rodriguez. Medications: New oxycodone-acetaminophen 5-325 mg Partial Fill upon patient request. 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
[2025-02-06 11:36] VITALS: BMI 38.2
--- OUTSIDE RECORDS SUMMARY | 2025-02-06 11:48 | XMS_ITS | Data Portability ---
Author Organization [place] [facility] [place] Address [address] [facility] [address] [place] [address] Care Team Providers Care Digital Service Engineer Name Role Phone LIZ LOPEZ Primary Care [...] findings at length with the patient today. We discussed the nature and etiology of this problem along with current treatment options. We discussed the expected course and outcomes and what to expect. We also discussed risks and benefits. All of their questions were answered today, and there was exhibited understanding and comprehension of all that was discussed. Time Spent: 10 minutes were spent reviewing previous imaging and charting. 10 minutes were spent obtaining patient history. 5 minutes were spent on physical exam. 5minutes were spent explaining diagnosis and assessment. Today's [...] findings at length with the patient today. We discussed the nature and etiology of this problem along with current treatment options. We discussed the expected course and outcomes and what to expect. We also discussed risks and benefits. All of their questions were answered today, and there was exhibited understanding and comprehension of all that was discussed. Time Spent: 10 minutes were spent reviewing previous imaging and charting. 10 minutes were spent obtaining patient history. 5 minutes were spent on physical exam. 5minutes were spent explaining diagnosis and assessment. Today's [...] findings at length with the patient today. We discussed the nature and etiology of this problem along with current treatment options. We discussed the expected course and outcomes and what to expect. We also discussed risks and benefits. All of their questions were answered today, and there was exhibited understanding and comprehension of all that was discussed. Time Spent: 10 minutes were spent reviewing previous imaging and charting. 10 minutes were spent obtaining patient history. 5 minutes were spent on physical exam. 5minutes were spent explaining diagnosis and assessment. Today's documentation was made using voice recognition software. This note may contain grammatical errors secondary to the software. Not available 08/10/2023 09:40:31 Plan of Treatment [...] Left Knee Pain 2022 023 [facility], [address], [place], [address], 3 15:18:58 XR, knee, 1 or 2 view - Right Knee Pain 2022 023 [facility], [address], [place], [address], 3 15:18:58 XR, knee, weightbeari ng - Bilateral Knee Pain 2022 023 [facility], [address], [place], [address], 3 15:18:58 Medication Orders Kenalog 40 mg/mL suspension for injection 2022 023 [facility], [address] [place] [address], [address], 08:52:19 lidocaine (PF) 10 mg/mL (1 %) injection solution 2022 023 [place] [address] [facility], [address] [place] [address], [address], 08:52:23 Bactrim DS 800 mg-160 mg tablet 2022 023 [place] [address] [facility], [address] [place] [address], [address], 08:52:34 lidocaine (PF) 10 mg/mL (1 %) injection solution 2022 023 [place] [address] [facility], [address] [place] [address], [address], 08:52:23 Patient TargetsNo targets recorded. Patient Instructions Encounter Date Encounter Id Patient Instructions Last Modified By Organization Details Last Modified Time 04/27/2023 [id number] X-rays of both knees reveal overall well-maintained joint space with mild degenerative change without acute bony abnormality. Normal bone mineralization no obvious soft tissue findings are observed. Not available 04/28/2023 08:16:44 05/11/2023 [id number] You have been provided with a cortisone [...] Recorded Time Prepatellar bursitis of left knee 5223681989245 03 Active 2022 VIOLETTE CORRALES PA-C [address], [facility] [place], [address], [place] [facility], P 3 14:06:33 Osteoarthri tis of left knee joint 4599309233803 09 Active 2022 VIOLETTE CORRALES PA-C [address], [facility] [place], [address], [place] [facility], P 3 10:10:06 Synovial cyst of right knee 9387908660824 04 Active 2022 VIOLETTE CORRALES PA-C [address], [facility] [place] [place], [address], [place] [facility], P 3 09:39:52 Problem Notes None recorded. Procedures Surgical History Date Name Laterality Status Provider Name and Address Organization Details Recorded Time 05/11/2023 Knee Joint/Burs a Asp & Inj completed VIOLETTE CORRALES PA-C [address], [place], [address], [place] [facility], P 05/11/2023 10:07:19 04/27/2023 Knee Joint/Burs a Asp & Inj completed VIOLETTE CORRALES PA-C [address], [place], [address], [place] [facility], P 04/28/2023 08:13:06 Knee arthroscop y/surgery completed Asha Rosario [place] [facility], P 04/27/2023 13:25:28 Imaging Results None recorded. Procedure Notes None recorded. Medical Equipment None Reported. Allergies Allergen ID Allergen Name Allergen Category Reaction Reaction Severity Criticality Documentation Date Start Date Code Code System Note Provider Name and Address Organization Details Recorded Time 7279 Iodinated contrast media (substanc e) medicatio n Not available Not available Not available 04/27/2023 34285 2003 SNOMED Asha Rosario null, [place] [facility], P 13:24:08 Medications Name Sig Start Date [...] t Available Vitals Date Recorded Body height Body mass index (BMI) Body weight Provider Name and Address Organization Details Last Updated DateTime 04/27/2023 157.48 cm 36.4 kg/m2 95873.88 g [facility], 04/27/2023 13:24:24 Date Recorded Body height Provider Name an d Address Organization Details Last Updated DateTime 08/10/2023 157.48 cm [facility], 08/10/2023 08:53:04 Social History None recorded. Functional Status Question Answer Note LastModified by Organizat ion Details LastModified Time How many times per week do you consume alcohol? Less than 1 time per week Information not available 04/27/2023 Do you use any illicit or recreational drugs? No Information not available 04/27/2023 Do you or have you ever used any other forms of tobacco or nicotine? No Information not available 04/27/2023 What is your level of alcohol consumption? Occasional Information not available 04/27/2023 Mental Status None recorded. Family History Nothing Reported. Medical History Condition Response Diabetes Y Bleeding Disorder Y Hypertension Y Gynecological HistoryNo gynecological history recorded. Obstetrics History GPAL:G 0 P 0 0 0 0 Past Encounters Encounter ID Performer Location Encounter Start Date Encounter Closed Date Diagnosis/Indication Diagnosis SNOMED-CT Code Diagnosis ICD10 Code Diagnosis Note [id number] CURT CALHOUN [facility] [address] [facility] [address] [place] [address] 04/27/2023 12:51:19 04/27/2023 14:11:04 Pain of left knee joint 9489202037 34365 M25.562 Pain of ri ght knee joint 2823728108 27661 M25.561 Pain of bi lateral knee joints 4363812318 77053 M25.561 Prepatella r bursitis of left knee 5094917622 52476 M70.42 [id number] CURT CALHOUN [facility] [address] [facility] [address] [place] [address] 05/11/2023 09:12:00 05/11/2023 10:08:57 Osteoarthritis of left knee joint 1237858517 67877 M17.12 [id number] CURT CALHOUN [facility] [address] [address] 08/10/2023 08:41:03 08/10/2023 09:56:06 Synovial cyst of right knee 0215188225 47145 M71.21 Health Concerns Section Related Observation LastModified by Organization Detai ls LastModified Time None Recorded Concern Status LastModified by Organization Details LastModified Time None Recorded Advance Directives Directive None Recorded Payers Encounter Date Sequence Insurance Name Policy Number Policy Orta Covered Member ID Orta Member ID Guarantor Name 04/27/2023 1 MEDICARE B-RI: [facility] Ya B Cameron [id number] Ya Cameron 04/27/2023 2 [facility] [id number] Ya Cameron [id number] Ya Cameron 05/11/2023 1 MEDICARE B-RI: [facility] Ya B Cameron [id number] Ya Cameron 05/11/2023 2 [facility] [id number] Ya Cameron [id number] Ya Cameron 08/10/2023 1 MEDICARE B-RI: [facility] Ya B Cameron [id number] Ya Cameron 08/10/[address] [place] [address] [id number] Ya Cameron [id number] Ya Cameron Notes Date Note Type Note [...] for evaluation and treatment. VIOLETTE CORRALES PA-C [address] [facility],[address] [address], [place], [address], [place] [facility], P 06/07/2023 13:07:40 05/11/2023 text/html Assessment & [...] going on vacation. VIOLETTE CORRALES PA-C [address] [facility], [place], [address], [place] [facility], P 05/11/2023 10:11:00 08/10/2023 text/html 63-year-old fema [...] shortness of breath. VIOLETTE CORRALES PA-C [address] [facility] [address], [place], [address], [place] [facility], P 08/10/2023 09:40:52 OBGyn Episode No OBEpisode recorded.
== END 2025-02-06 12:02 | disposition home or self-care (01) ==
LOC: HO.HOS 11:28
PROVIDERS: PCP Internal Medicine; Visit Provider Physician Assistant
DX: S82.202G Unspecified fracture of shaft of left tibia, subsequent encounter for closed fracture with delayed healing (principal)
CPT/HCPCS: 99024

== ENCOUNTER → 2025-02-06 11:27 | Outpatient (BNVA) | payer MEDICARE, OTHER, SELFPAY | PROVIDERS: PCP Internal Medicine; Visit Provider Physician Assistant | DX: S82.202G Unspecified fracture of shaft of left tibia, subsequent encounter for closed fracture with delayed healing (principal) | CPT/HCPCS: 99212 ==

== ENCOUNTER 2025-02-12 06:18 | Day surgery (SDC) | payer MEDICARE, OTHER, SELFPAY ==
--- OUTSIDE RECORDS SUMMARY | 2025-01-08 12:34 | XMS_ITS | Data Portability ---
Author Organization [facility], PAIN OFFICE Address [address] [facility] [address] [place] [address] Care Team Providers Care Parts Cataloger Name Role Phone LIZ LOPEZ Primary Care [...] results of the imaging studies done at [facility]. [email or web address] Not available 12/29/2020 08:21:00 06/29/2021 06/29/2021 [...] made for the same. 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 She [...] By Organization Details Last Modified Time 12/28/2020 [id number] Telehealth visit: The patient was located at home for this telephone electronic visit and gave consent for this visit to be conducted via telehealth. 15 minutes was spent on this call and greater than 50% of the visit was spent on counseling and coordination of care [email or web address] Not available 12/29/2020 08:16:48 06/29/2021 [id number] She was advised against bed rest lasting longer than four days and to continue activities as tolerated. [email or web address] Not available 06/29/2021 13:50:55 08/09/2021 [id number] She was advised against bed rest lasting [...] care. [email or web address] Not available 08/09/2021 11:56:59 01/12/2022 [id number] She was advised against bed rest lasting longer than four days and to continue activities as tolerated. [email or web address] Not available 01/15/2022 10:55:55 01/24/2022 [id number] She was advised against bed rest lasting longer than four days and to continue activities as tolerated. [email or web address] Not available 01/24/2022 16:06:51 Reason for Referral None Reported. Problems Name Problem SNOMED Code Status Onset Date Resolution Date Notes Provider Name and Address Organization Details Recorded Time Degeneration of lumbar intervertebral disc 04837107 Geovanna farfan MD [address] [facility] , [address], [facility] [place], [address] , [place] [facility] 11:51:41 Lumbar radiculopathy 737001616 Geovanna farfan MD [address] , [address], [facility] [place] [place], [address], [place] [facility] 9 11:53:15 Lumbosacral spondylosis without myelopathy 03146211 Active Jagruti farfan MD [address] , [address], [place], [address], [place] [facility] 9 11:53:34 Degeneration of cervical intervertebral disc 15498887 Active Jagruti farfan MD [address] [facility] , [address], [facility] [place], [address], [place] [facility] 9 09:02:31 Muscle pain 78367784 Active Jagruti farfan MD [address] [facility] , [address], [facility] [place], [address], [place] [facility] 9 09:02:41 Problem Notes None recorded. Procedures Surgical History Date Name Laterality Status Provider Name and Address Organization Details Recorded Time 01/25/20 22 Intra-articular shoulder steroid injection under ultrasound guidance completed Jagruti Elizabeth MD [address] [facility] , [address], [place], [address], [place] [facility] 01/24/2022 16:06:02 06/29/20 21 Lumbar Epidural steroid injection under fluoroscopic guidance completed Jagruti Elizabeth MD [address] [facility] , [address], [place], [address], [place] [facility] 06/29/2021 13:51:52 07/21/20 20 Lumbar Epidural steroid injection under fluoroscopic guidance completed Jagruti Elizabeth MD [address] [facility] , [address], [place], [address], [place] [facility] 07/21/2020 15:54:12 10/23/19 20 Lumbar Epidural steroid injection under fluoroscopic guidance completed Jagruti Elizabeth MD [address] [facility] , [address], [place], [address], [place] [facility] 10/23/2019 14:39:47 05/30/20 19 Trigger Point Injections under ultrasound guidance completed Jagruti Elizabeth MD [address] , [address], [place], [address], [place] [facility] 05/30/2019 13:31:49 05/15/20 19 Trigger Point Injections under ultrasound guidance completed Jagruti Elizabeth MD [address] [facility] , [address], [place], [address], [place] [facility] 05/15/2019 14:15:41 04/02/20 19 Lumbar Epidural steroid injection under fluoroscopic guidance completed Jagruti Elizabeth MD [address] [facility] , [address], [place], [address], [place] [facility] 04/03/2019 08:35:11 10/09/19 19 Lumbar Epidural steroid injection under fluoroscopic guidance completed Jagruti Elizabeth MD [address] [facility] , [address], [place], [address], [place] [facility] 10/09/2018 [...] Name and Address Organization Details Recorded Time 21193 Iodinated contrast media (substanc e) medicatio n rash Not available Not available 09/14/2018 52618 2004 SNOMED < great er 20 years [...] Available Not Available Not Available amoxicillin 500 mg-aibsaiu m clavulanate 125 mg tablet 09/14 completed [...] Updated DateTime 1 157.48 cm 36.4 kg/m2 11641.8 8 g 84 /min 96 % 96 % 121 mm[Hg] 75 mm[Hg] Eden Mcmullen [place] [facility] 1 10:30:30 Date Recorded Body height Provider Name an d Address Organization Details Last Updated DateTime 08/09/2021 157.48 cm Jagruti Elizabeth MD [address] , [address], [place], [address], [place] [facility] 08/09/2021 11:57:31 [...] Updated DateTime 2 157.48 cm 36.4 kg/m2 86181.8 8 g 80 /min 94 % 94 % 10 162 mm[Hg] 81 mm[Hg] Jagruti farfan MD [address] , [address], [place], [address], [place] [facility] 2 11:23:01 Social History Question Answer Notes LastModified by Organizat ion Details LastModified Time Tobacco Smoking Status Former Smoker quit x 12 years Not Available [facility] 06/26/2020 03:16:11 What Is Your Level Of Alcohol Consumption? Occasional [id number] Information not available 06/26/2020 Are You Currently Employed? No [id number] Information not available 06/26/2020 Which Illicit Or Recreational Drugs Have You Used? No [id number] Information not available 06/26/2020 Education 12 Information no t available 09/14/2018 What Is Your Occupation? Disability [id number] Information not available 06/26/2020 Live Alone Or With Others? With Others Information not available 09/14/2018 Marital Status Informatio n not available 09/14/2018 What Was The Date Of Your Most Recent Tobacco Screening? 03/27/2019 [id number] Information not available 06/26/2020 How Many Years Have You Smoked Tobacco? 20 [id number] Information not available 06/26/2020 Sex: Unknown Functional [...] SNOMED-CT Code Diagnosis ICD10 Code Diagnosis Note [id number] Jagruti Elizabeth MD PAIN OFFICE [address] [place] [address] 09/14/2018 09:20:14 09/14/2018 12:05:18 Lumbosacral spondylosis without myelopathy 51161483 M47.817 Lumbar radiculopathy 128 634967 M54.16 Degenerati on of lumbar intervertebral disc 72601768 M51.36 60147 Jagruti Elizabeth MD PAIN OFFICE [address] [place] [address] 10/09/2018 08:54:37 10/09/2018 10:59:45 Lumbosacral spondylosis without myelopathy 60653371 M47.817 Lumbar radiculopathy 128 332154 M54.16 Degenerati on of lumbar intervertebral disc 70730408 M51.36 12770 Jagruti Elizabeth MD PAIN OFFICE [address] [place] [address] 11/08/2018 08:45:11 11/08/2018 11:03:12 Lumbosacral spondylosis without myelopathy 06439470 M47.817 Lumbar radiculopathy 128 595234 M54.16 Degenerati on of lumbar intervertebral disc 09420484 M51.36 [id number] Jagruti Elizabeth MD PAIN OFFICE [address] [address] 03/26/2019 13:44:21 03/27/2019 16:06:04 Lumbosacral spondylosis without myelopathy 75912692 M47.817 Lumbar radiculopathy 128 128315 M54.16 Degenerati on of lumbar intervertebral disc 81382410 M51.36 27239 Jagruti Elizabeth MD PAIN OFFICE [address] [address] 04/02/2019 14:22:38 04/03/2019 11:57:34 Lumbosacral spondylosis without myelopathy 84783077 M47.817 Lumbar radiculopathy 128 439560 M54.16 Degenerati on of lumbar intervertebral disc 02325871 M51.36 43373 Jagruti Elizabeth MD PAIN OFFICE [address] [address] 05/06/2019 10:21:08 05/15/2019 11:02:55 Degeneration of cervical intervertebral disc 86034751 M50.30 Muscle pain 54965707 M79 .18 Degenerati on of lumbar intervertebral disc 50770535 M51.36 Lumbar radiculopathy 128 008807 M54.16 Lumbosacra l spondylosis without myelopathy 74475029 M47.817 07480 Jagruti Elizabeth MD PAIN OFFICE [address] [place] [address] 05/15/2019 13:13:23 05/15/2019 14:18:15 Degeneration of cervical intervertebral disc 31341148 M50.30 Muscle pain 61899764 M79 .18 Degenerati on of lumbar intervertebral disc 93202526 M51.36 Lumbar radiculopathy 128 722804 M54.16 Lumbosacra l spondylosis without myelopathy 82527517 M47.817 41842 Jagruti Elizabeth MD PAIN OFFICE [address] [address] 05/30/2019 12:55:57 05/30/2019 13:33:51 Degeneration of cervical intervertebral disc 34939973 M50.30 Muscle pain 80186228 M79 .18 Degenerati on of lumbar intervertebral disc 63768544 M51.36 Lumbar radiculopathy 128 517653 M54.16 Lumbosacra l spondylosis without myelopathy 97384369 M47.817 69551 Jagruti Elizabeth MD PAIN OFFICE [address] [place] [address] 06/12/2019 11:37:11 06/24/2019 16:57:19 Degeneration of cervical intervertebral disc 44833093 M50.30 Muscle pain 94367357 M79 .18 Degenerati on of lumbar intervertebral disc 84749878 M51.36 Lumbar radiculopathy 128 493884 M54.16 Lumbosacra l spondylosis without myelopathy 90549503 M47.817 43844 Jagruti Elizabeth MD PAIN OFFICE [address] [place] [address] 10/23/2019 13:52:47 10/23/2019 14:42:33 Lumbosacral spondylosis without myelopathy 32634911 M47.817 Lumbar radiculopathy 128 139365 M54.16 Degenerati on of lumbar intervertebral disc 81881599 M51.36 94837 Jagruti Elizabeth MD PAIN OFFICE [address] [place] [address] 06/30/2020 08:32:55 06/30/2020 08:45:50 Lumbosacral spondylosis without myelopathy 63162580 M47.817 Lumbar radiculopathy 128 502442 M54.16 Degenerati on of lumbar intervertebral disc 63881195 M51.36 91263 Jagruti Elizabeth MD PAIN OFFICE [address] [place] [address] 07/21/2020 15:28:07 07/21/2020 15:57:40 Lumbosacral spondylosis without myelopathy 14588483 M47.817 Lumbar radiculopathy 128 042175 M54.16 Degenerati on of lumbar intervertebral disc 19666414 M51.36 62851 Jagruti Elizabeth MD PAIN OFFICE [address] [place] [address] 08/17/2020 09:19:36 08/17/2020 09:24:43 Lumbosacral spondylosis without myelopathy 36972181 M47.817 Lumbar radiculopathy 128 259840 M54.16 Degenerati on of lumbar intervertebral disc 67216529 M51.36 31329 Jagruti Elizabeth MD PAIN OFFICE [address] [facility] [place] [address] 12/28/2020 15:16:05 12/29/2020 08:21:36 Muscle pain 94240002 M79.18 97750 Jagruti Elizabeth MD PAIN OFFICE [address] [facility] [place] [address] 06/29/2021 10:22:54 06/29/2021 13:59:36 Lumbosacral spondylosis without myelopathy 95845107 M47.817 Lumbar radiculopathy 128 647862 M54.16 Degenerati on of lumbar intervertebral disc 30713524 M51.36 78264 Jagruti Elizabeth MD PAIN OFFICE [address] [facility] [place] [address] 08/09/2021 11:55:52 08/09/2021 13:16:05 Lumbosacral spondylosis without myelopathy 04756460 M47.817 Lumbar radiculopathy 128 366816 M54.16 Degenerati on of lumbar intervertebral disc 75703261 M51.36 [id number] Jagruti Elizabeth MD PAIN OFFICE [address] [facility] [place] [address] 01/12/2022 13:35:53 01/15/2022 10:59:14 Inflammation of joint of shoulder region 337768950 M13.819 Subacromia l bursitis of left shoulder 3192263699 582554 M75.52 38778 Jagruti Elizabeth MD PAIN OFFICE [address] [facility] [place] [address] 01/24/2022 11:13:47 01/24/2022 16:09:39 Inflammation of joint of shoulder region 079652188 M13.819 Subacromia l bursitis of left shoulder 7197519474 486638 M75.52 Health Concerns Section Related Observation LastModified by Organization Detai ls LastModified Time None Recorded Concern Status LastModified by Organization Details LastModified Time None Recorded Advance Directives Directive None Recorded Payers Encounter Date Sequence Insurance Name Policy Number Policy Orta Covered Member ID Orta Member ID Guarantor Name 12/28/2020 2 [facility] [id number] Ya Cameron [id number] Ya Cameron 12/28/2020 1 MEDICARE B-[place]: [facility] Ya B Cameron [id number] Ya Crouchs 06/29/2021 2 [facility] [id number] Ya Crouchs [id number] Ya Crouchs 06/29/2021 1 [place]: [facility] Ya B Cameron [id number] Ya Crouchs 08/09/2021 2 [facility] [id number] Ya Crouchs [id number] Ya Crouchs 08/09/2021 1 MEDICARE B-[place]: [facility] Ya B Cameron [id number] Ya Crouchs 01/12/2022 2 [facility] [id number] Ya Crouchs [id number] Ya Crouchs 01/12/2022 1 [place]: [facility] Ya B Cameron [id number] Ya Crouchs 01/24/2022 2 [facility] [id number] Ya Crouchs [id number] Ya Crouchs 01/24/2022 1 MEDICARE B-ME: [facility] Ya B Cameron [id number] Ya Crouchs Notes Date Note Type Note [...] bladder or bowel incontinence.She was seen at [facility] and had imaging done. Results are not available today. Jagruti Elizabeth MD [address] [facility] , [address], [place], [address], [place] - [facility] 12/30/2020 08:57:28 06/29/2021 text/html She is here for a lumbar epidural steroid injection under fluoroscopic guidance. She had a fall in [facility] and has been having an exacerbation of her pain. She was seen at [facility]. No recent X-rays. Jagruti Elizabeth MD [address] [facility] , [address], [place], [address], [place] [facility] 06/30/2021 08:52:14 08/09/2021 text/html This is a follow up after a lumbar epidural steroid injection under fluoroscopic guidance. She reports 70-80% pain benefit which is ongoing. She has stiffness in the morning which improves with stretching. She is walking better . Jagruti Elizabeth MD [address] [facility] , [address], [place], [address], [place] - [facility] 08/11/2021 09:15:50 01/12/2022 text/html She is here for a follow up. She was last seen on 07/01 for a lumbar epidural steroid injection under fluoroscopic guidance. She reports good pain benefit. She is complaining of left shoulder pain . She has seen Dr. Rodriguez , orthopedic surgeon at [facility] for her pain. He recommend a left shoulder steroid injection under ultrasound guidance. She has been having shoulder pain for the past five years . She is having a difficult time lifting her arm over her head.MRI left shoulder shows mild supraspinatus tendonitis and minimal distal inferior spinatus calcific tendonitis. Mild glenohumeral arthritis. Jagruti Elizabeth MD [address] [facility] , [address], [place], [address], [place] - [facility] 01/15/2022 11:05:58 01/24/2022 text/html She is here for a left shoulder steroid injection under ultrasound guidance Jagruti Elizabeth MD [address] [facility] , [address], [place], [address], [facility] 01/24/2022 16:37:45 OBGyn Episode No OBEpisode recorded.
--- OUTSIDE RECORDS SUMMARY | 2025-01-08 12:34 | XMS_ITS | Clinical Summary ---
Author Organization [facility] Address [address] [place] [address] Care Team Providers Care Build Master Name Role Phone Flakita Calero MD Primary Care Provider [phone] Allergies Active Allergy Reactions Criticality Noted Date [...] age to complete this topic Care Teams Build Master Relationship Specialty Start Date End Date Flakita Calero MD [address] [place] [id number] PCP - General Internal Medicine 10/27/17
--- OUTSIDE RECORDS SUMMARY | 2025-01-08 12:34 | XMS_ITS | Data Portability ---
Author Organization [place] [facility] Address [address] [facility] [address] [place] [address] Care Team Providers Care Toe Puller Name Role Phone LIZ LOPEZ Primary Care [...] Left Knee Pain 2022 023 [facility], [address], [address], [place], [address], 3 15:18:58 XR, knee, 1 or 2 view - Right Knee Pain 2022 023 [facility], [address], [place], [address], 3 15:18:58 XR, knee, weightbeari ng - Bilateral Knee Pain 2022 023 [facility], [address], [place], [address], 3 15:18:58 Medication Orders Kenalog 40 mg/mL suspension for injection 2022 023 [place] [address] [facility], [address] [place] [address], [address], 3 08:52:19 lidocaine (PF) 10 mg/mL (1 %) injection solution 2022 023 [place] [address] [facility], [address] [place] [address], [address], 3 08:52:23 Bactrim DS 800 mg-160 mg tablet 2022 023 [place] [address] [facility], [address] [place] [address], [address], 3 08:52:34 lidocaine (PF) 10 mg/mL (1 %) injection solution 2022 023 [place] [address] [facility], [address] [place] [address], [address], 3 08:52:23 Patient TargetsNo targets recorded. Patient Instructions Encounter Date Encounter Id Patient Instructions Last Modified By Organization Details Last Modified Time 04/27/2023 [id number] X-rays of both knees reveal overall well-maintained joint space with mild degenerative change without acute bony abnormality. Normal bone mineralization no obvious soft tissue findings are observed. Not available 04/28/2023 08:16:44 05/11/2023 [id number] You have been provided with a cortisone [...] Recorded Time Prepatellar bursitis of left knee 4534701102127 03 Active 2022 VIOLETTE CORRALES PA-C [address], [place], [address], [place] [facility] 3 14:06:33 Osteoarthri tis of left knee joint 9111300455850 09 Active 2022 VIOLETTE CORRALES PA-C [address], [place], [address], [place] [facility] 3 10:10:06 Synovial cyst of right knee 1628000854841 04 Active 2022 VIOLETTE CORRALES PA-C [address], [place], [address], [place] [facility] 3 09:39:52 Problem Notes None recorded. Procedures Surgical History Date Name Laterality Status Provider Name and Address Organization Details Recorded Time 05/11/2023 Knee Joint/Burs a Asp & Inj completed VIOLETTE CORRALES PA-C [address], [place], [address], [place] [facility] 05/11/2023 10:07:19 04/27/2023 Knee Joint/Burs a Asp & Inj completed VIOLETTE CORRALES PA-C [address] [place] [address], [place], [address], [place] [facility] 04/28/2023 08:13:06 Knee arthroscop y/surgery completed [facility] [place] [facility] 04/27/2023 13:25:28 Imaging Results None recorded. Procedure Notes None recorded. Medical Equipment None Reported. Allergies Allergen ID Allergen Name Allergen Category Reaction Reaction Severity Criticality Documentation Date Start Date Code Code System Note Provider Name and Address Organization Details Recorded Time 7279 Iodinated contrast media (substanc e) medicatio n Not available Not available Not available 04/27/2023 48432 2003 SN[facility]ED [place] [facility] [place] [facility] 13:24:08 Medications Name Sig Start Date [...] Last Updated DateTime 08/10/2023 157.[facility] 08:53:04 Date Recorded Body height Body mass index (BMI) Body weight Provider Name and Address Organization Details Last Updated DateTime 04/27/2023 157.48 cm 36.4 kg/m2 78771.88 g Asha Nordman [facility], 04/27/2023 13:24:24 Social History Question Answer Notes LastModified by Organizat ion Details LastModified Time Tobacco Smoking Status Never Smoker Asha Rosario [facility] 04/27/2023 13:24:38 What Is Your Level Of Alcohol Consumption? Occasional Information not available 04/27/2023 How Many Times Per Week Do You Consume Alcohol? Less Than 1 Time Per Week Information not available 04/27/2023 Do You Use Any Illicit Or Recreational Drugs? No Information not available 04/27/2023 Do You Or Have You Ever Used Any Other Forms Of Tobacco Or Nicotine? No Information not available 04/27/2023 Sex: Unknown Functional [...] SNOMED-CT Code Diagnosis ICD10 Code Diagnosis Note [id number] CURT CALHOUN [facility] [address] [facility] [address] [place] [address] 04/27/2023 12:51:19 04/27/2023 14:11:04 Pain of left knee joint 7982391823 52617 M25.562 Pain of ri ght knee joint 8226407924 19770 M25.561 Pain of bi lateral knee joints 4595203153 81084 M25.561 Prepatella r bursitis of left knee 7083913494 25565 M70.42 [id number] CURT CALHOUN [facility] [address] [facility] [address] [place] [address] 05/11/2023 09:12:00 05/11/2023 10:08:57 Osteoarthritis of left knee joint 3637349240 07820 M17.12 [id number] CURT CALHOUN [facility] [address] [facility] [address] [place] [address] 08/10/2023 08:41:03 08/10/2023 09:56:06 Synovial cyst of right knee 9683447375 99070 M71.21 Health Concerns Section Related Observation LastModified by Organization Detai ls LastModified Time None Recorded Concern Status LastModified by Organization Details LastModified Time None Recorded Advance Directives Directive None Recorded Payers Encounter Date Sequence Insurance Name Policy Number Policy Orta Covered Member ID Orta Member ID Guarantor Name 04/27/2023 1 [place] [facility] You [facility] [place] Ya Alize Crouchs [id number] Ya Cameron 04/27/2023 2 [facility] [id number] Ya Cameron [id number] Ya Camreon 05/11/2023 1 [place] Ya Cameron [id number] Ya Cameron 05/11/2023 2 [facility] [id number] 2 Ya Cameron [id number] Ya Cmaeron 08/10/2023 1 [place] [facility] Ya Cameron [id number] Ya Cameron 08/10/2023 2 [facility] [id number] 2 Ya Cameron [id number] Ya Cameron Notes Date Note Type Note [...] for evaluation and treatment. VIOLETTE CORRALES PA-C [address] [place] [address], [address], [place] [facility] 06/07/2023 13:07:40 05/11/2023 text/html Assessment & [...] going on vacation. VIOLETTE CORRALES PA-C [address] [facility],[address] [address], [place], [address], [place] [facility] 05/11/2023 10:11:00 08/10/2023 text/html 63-year-old fema [...] shortness of breath. VIOLETTE CORRALES PA-C [address] [facility] [address], [place], [address], [place] [facility] 08/10/2023 09:40:52 OBGyn Episode No OBEpisode recorded.
--- OUTSIDE RECORDS SUMMARY | 2025-01-08 12:35 | XMS_ITS | Clinical Summary ---
Author Organization [facility] [employer] [facility] ity Address [address] [place] [address] Care Team Providers Care Universal Grinder Operator Name Role Phone Flakita Calero MD Primary Care Provider [phone] Surgical History Surgery Date Site/Laterality Comments NECK [...] age to complete this topic Care Teams Universal Grinder Operator Relationship Specialty Start Date End Date Flakita Calero MD [address] [place] [address] PCP - General 02/15/08
--- OUTSIDE RECORDS SUMMARY | 2025-01-08 12:35 | XMS_ITS | Patient Health Record ---
Author Organization [facility] Address [address] [place] [address] Care Team Providers Care Financial Management Analyst Name Role Phone Abdias QUIROZ, Flakita Bowens Primary Care Provider Un available Elena Mejia Unavailable [phone] Allergies Allergen (clinical drug ingredient) Drug/Non Drug [...] Problem Type II diabetes mellitus without complication (685136656) Type 2 diabetes mellitus without complications (E11.9) Active confirmed Problem [id number] 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 (M19.072) Active confirmed Plan Of Treatment Pending Test Test Name Order Date X ray : Foot, left 3V 07/07/2021 [id number] NAIL, 1-5 06/06/2016 [id number] Plate 01/17/2017 [id number] Plate 05/23/2016 [id number] 06/13/2017 63341- Debride <25 sq cm 07/21/2015 32257- Debride <25 sq cm 07/11/2017 88613- Debride <25 sq cm 07/25/2017 [id number] SKIN/TISSUE 06/27/2017 27442 I&D ABSCESS- SIMPLE,SINGLE 015 94751 I&D ABSCESS- SIMPLE,SINGLE 015 Insurance Providers Payer Name Payer Address Payer Phone Subscriber Number Group Number Insured Name Patient Relationship to Insured Coverage Start Date Coverage End Date Medicare [employer] [address] [place] [address] [id number] Ya Cameron Self - patient is the insured [facility] [address] [place] [address] [id number] Ya Cameron Self - patient is the [...]
[2025-01-29 12:09] VITALS: BP 155/69; PULSE 89; RESP 18; O2SAT 98; BMI 38.4
--- NOTE | 2025-01-29 12:26 | P.CONAN_ITS ---
Documented by User: Rashmi Otero NP 02/10/25 15:13 HPI - Anesthesia Eval Consult details Narrative: 64yo F for Left Tibia Removal Orthopedic Hardware, 02/12/25 No recent illness No CP/SOB with walking, limited by leg pain - palps at rest ([id number] work up by [facility] cardiology negative) COPD: No inhalers required, former smoker PE: Eliquis, follows [facility] oncology, ok to hold DM: Does not check POC at home, A1C = 7.5 08/2024 GERD: ppi controls PMFSH Active Problems Active Problems: All Active Problems Nonunion of fracture of lower leg (Acute) Preoperative examination (Acute) 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 (Acute) Prolonged QT interval (Acute) Type 2 diabetes mellitus with hyperglycemia, without long-term current use of insulin (Acute) Current use of senior care anticoagulation (Acute) Prolapse of female pelvic organs (Acute) GERD (gastroesophageal reflux disease) (Acute) Generalized anxiety disorder (Acute) Dyslipidemia (Acute) Essential hypertension (Acute) Deviated nasal septum (Acute) Past Medical History Medical History Neurodermatitis Thyroid cancer Type 2 diabetes mellitus with hyperglycemia, without long-term current use of insulin Current use of senior care anticoagulation Prolapse of female pelvic organs Prepatellar bursitis Generalized anxiety disorder COPD (chronic obstructive pulmonary disease) Depression, major, recurrent, in complete remission Herpes zoster Left shoulder tendinitis GERD (gastroesophageal reflux disease) Calcaneal spur of left foot Arthritis of first metatarsophalangeal (MTP) joint of left foot Deviated nasal septum History of pulmonary embolism Essential hypertension Dyslipidemia Family History Family History Father Alcoholism Mother HTN (hypertension) Hyperlipidemia CVD (cardiovascular disease) Sister Hyperlipidemia Alcoholism Substance use disorder Brother No problems noted. Sister No problems noted. Sister No problems noted. Sister No problems noted. Daughter No problems noted. Daughter No problems noted. 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 Family history of problems with anesthesia: No Surgical History Surgical History History of esophagogastroduodenoscopy (EGD) H/O colonoscopy Hx of blepharoplasty Status post open reduction and internal fixation (ORIF) of fracture (~09/16/23) History of fusion of cervical spine Hx of left breast biopsy History of partial thyroidectomy History of shoulder surgery History of tubal ligation History of Problems with Anesthesia: No Social History Social History Household Members: Significant Other Household Members Other:: 2 Housing: Apartment Are you a primary long term care pharmacist to a significant other at home: No Do you presently have visiting nurse or other home services: No Alcohol intake: never Patient Tobacco Use Status: Former Tobacco user Tobacco use type: Cigarette Years Smoked: 20 e-Cigarette/Vaping Use: Never Used Second Hand Smoke Exposure: No Use of substances other than those prescribed or required for medical reasons: No Have you been hit, kicked, punched, or otherwise hurt by someone within the past year? If so, by whom?: No Spiritual Healthcare Practices: no Church Healthcare Practices: no-Pentecostalism Cultural Healthcare Practices: no Are you DNR?: No Advance Directives: Yes Advance Directives Information Provided: Yes Advance Directives on File: Yes Advance Directives Date on File: 11/08/22 FDLMP: n/a service: No Current occupational status: disabled Cognitive needs: No Hearing needs: No Vision needs: Yes Meds Allergies Allergy/AdvReac Type Severity Reaction Status Date / Time capsaicin AdvReac Intermediate Rash Verified 02/06/25 11:36 Iodinated Contrast Media AdvReac Intermediate Rash Verified 02/06/25 11:36 [IV Contrast Dye] perflutren [From Definity] AdvReac Intermediate Rash Verified 02/06/25 11:36 Home Medications ?Medication ?Instructions ?Recorded ?Confirmed ?Last Taken ?Type cetirizine 10 mg tablet 10 mg PO QAM 02/13/23 01/29/25 02/12/25 History tolterodine 4 mg capsule,extended 4 mg PO BEDTIME 05/23/23 01/29/25 09/14/23 History release 24 hr amlodipine 5 mg tablet 5 mg PO QAM 01/29/25 01/29/25 02/12/25 History fluoxetine 20 mg capsule 40 mg PO QAM 01/29/25 01/29/25 Unknown History metformin 500 mg tablet 500 mg PO BEDTIME 01/29/25 01/29/25 Unknown History omeprazole 40 mg capsule,delayed 40 mg PO BEDTIME Heartburn symptoms 01/29/25 01/29/25 02/12/25 History release Exam Height,Weight and Vital Signs: Height 5 ft 2 in Weight 95.254 kg Last Vital Signs Pulse 89 01/29/25 12:09 Resp 18 01/29/25 12:09 BP 155/69 H 01/29/25 12:09 Pulse Ox 98 01/29/25 12:09 O2 Del Method Room Air 01/29/25 12:09 Narrative Narrative: Holter 06/2024 * Total procedure time 30 days. Wear time 29 days. * Underlying rhythm is sinus with an average rate of 78/Min. * Rare supraventricular ectopy. * Rare ventricular ectopy. * No significant pauses or high-grade AV blocks. NM carl perf SPECT rest & str 12/2024 Impression: 1. Myocardial perfusion imaging study shows [likely normal myocardial perfusion 2. Gated LVEF is 67% 3. Transient ischemic dilatation not present Nondiagnostic changes on EKG. EKG 08/2024 Details: EKG shows normal sinus rhythm with poor R-wave progression most likely lead placement with nonspecific T-wave changes Airway Mallampati Class: I TM Dist: >3cm Neck ROM: Full (hx cspine fusion years ago) Loose/Missing/Broken Teeth: Yes (edentulous) Heart: RRR Lungs: CTAB Assessment and Plan Assessment Anesthesia Assessment: Anesthesia Plan Discussed and PAT Visit Final Anesthetic Review Family History of Problems with Anesthesia: No History of Problems with Anesthesia: No Documented by User: Miquel Klein MD 02/12/25 08:32 [facility] Past Medical History Medical History Neurodermatitis Thyroid cancer Type 2 diabetes mellitus with hyperglycemia, without long-term current use of insulin Current use of senior care anticoagulation Prolapse of female pelvic organs Prepatellar bursitis Generalized anxiety disorder COPD (chronic obstructive pulmonary disease) Depression, major, recurrent, in complete remission Herpes zoster Left shoulder tendinitis GERD (gastroesophageal reflux disease) Calcaneal spur of left foot Arthritis of first metatarsophalangeal (MTP) joint of left foot Deviated nasal septum History of pulmonary embolism Essential hypertension Dyslipidemia Functional capacity: independent ambulation Patient : No Family History Family History Father Alcoholism Mother HTN (hypertension) Hyperlipidemia CVD (cardiovascular disease) Sister Hyperlipidemia Alcoholism Substance use disorder Brother No problems noted. Sister No problems noted. Sister No problems noted. Sister No problems noted. Daughter No problems noted. Daughter No problems noted. 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 Surgical History Surgical History History of esophagogastroduodenoscopy (EGD) H/O colonoscopy Hx of blepharoplasty Status post open reduction and internal fixation (ORIF) of fracture (~09/16/23) History of fusion of cervical spine Hx of left breast biopsy History of partial thyroidectomy History of shoulder surgery History of tubal ligation Social History Social History Household Members: Significant Other Household Members Other:: 2 Housing: Apartment Are you a primary long term care pharmacist to a significant other at home: No Do you presently have visiting nurse or other home services: No Alcohol intake: never Patient Tobacco Use Status: Former Tobacco user Tobacco use type: Cigarette Years Smoked: 20 e-Cigarette/Vaping Use: Never Used Second Hand Smoke Exposure: No Use of substances other than those prescribed or required for medical reasons: No Have you been hit, kicked, punched, or otherwise hurt by someone within the past year? If so, by whom?: No Spiritual Healthcare Practices: no Church Healthcare Practices: no-Pentecostalism Cultural Healthcare Practices: no Are you DNR?: No Advance Directives: Yes Advance Directives Information Provided: Yes Advance Directives on File: Yes Advance Directives Date on File: 11/08/22 FDLMP: n/a service: No Current occupational status: disabled Cognitive needs: No Hearing needs: No Vision needs: Yes Meds Allergies Allergy/AdvReac Type Severity Reaction Status Date / Time capsaicin AdvReac Intermediate Rash Verified 02/06/25 11:36 Iodinated Contrast Media AdvReac Intermediate Rash Verified 02/06/25 11:36 [IV Contrast Dye] perflutren [From Definity] AdvReac Intermediate Rash Verified 02/06/25 11:36 Home Medications ?Medication ?Instructions ?Recorded ?Confirmed ?Last Taken ?Type cetirizine 10 mg tablet 10 mg PO QAM 02/13/23 01/29/25 02/12/25 History tolterodine 4 mg capsule,extended 4 mg PO BEDTIME 05/23/23 01/29/25 09/14/23 History release 24 hr amlodipine 5 mg tablet 5 mg PO QAM 01/29/25 01/29/25 02/12/25 History fluoxetine 20 mg capsule 40 mg PO QAM 01/29/25 01/29/25 Unknown History metformin 500 mg tablet 500 mg PO BEDTIME 01/29/25 01/29/25 Unknown History omeprazole 40 mg capsule,delayed 40 mg PO BEDTIME Heartburn symptoms 01/29/25 01/29/25 02/12/25 History release Exam Exam Date and Time: february 12, 2025 Airway Denture: Upper and Lower Assessment and Plan Final Anesthetic Review NPO: Yes ASA Class: III Final Preanesthetic Review: No Changes in Pt Med Stat, Meds/Allgs Chart Reviewed, Consent Obtained/Reviewed and Anes Risks/Benef Reviewed Patient Risk: Intermediate Procedure Risk: Low Anesthetic Plan Anesthetic Plan: GA Disposition: Standard PACU
[2025-02-12] VITALS (7 sets, daily range): BP systolic 120–163; BP diastolic 60–80; PULSE 77–91; RESP 16–18; TEMP 36.1–36.8; O2SAT 92–97; BMI 37.8
[2025-02-12] MEDS: Lactated Ringers 1,000 ML 100 ML IVCONT (07:01)
--- NOTE | 2025-02-12 07:03 | MHC.SHP ---
Pre-Procedural Eval Section A - 24 Hr Update-Section A only Date of Service: 02/12/25 The patient is an INPATIENT: No Changes since office visit: No Cold of Flu in the past 2 weeks, No New Medical Problems, No Changes in Medication and No Patient answered all questions The patient has been examined within 24 hours of the surgical procedure. The History & Physical has been completed within 30 days and I have reviewed it.: Yes Section B - Complete if H&P > 30 days Chief Complaint: Unspecified fracture of unspecified lower leg, sub Allergies: Allergies Allergy/AdvReac Type Severity Reaction Status Date / Time capsaicin AdvReac Intermediate Rash Verified 02/06/25 11:36 Iodinated Contrast Media AdvReac Intermediate Rash Verified 02/06/25 11:36 [IV Contrast Dye] perflutren [From Definity] AdvReac Intermediate Rash Verified 02/06/25 11:36 Plan I have reviewed the history and physical and performed a pertinent physical examination on my patient. No changes have occurred unless specified. Time Spent With Patient Time: Total time managing care of this patient today ____ minutes.
[2025-02-12 07:06] LABS: Glucose, Whole Blood 165 mg/dL (60-115)
--- NOTE | 2025-02-18 13:50 | W.PM.OPN ---
Operative Note Operative Note Date of Service: 02/12/25 Narrative: Date of Service: 02/12/25 Pre-op diagnosis: Retained orthopedic hardware left tibia Post-op diagnosis: same Procedure: Removal of hardware, deep, left tibia Implants: None Surgeon: Danilo Rodriguez MD Anesthesia: GETA and local Was an [employer] Professor used for this Procedure?: Yes [employer] Professor: Desire Hernandez Estimated blood loss (mL): 25 IV fluids (mL): 500 Pathology: none sent Condition: stable Disposition: PACU Procedure in detail: Patient was brought to the operating room placed supine on the operative table and prepped and draped in standard sterile fashion. A time-out was called to identify proper site proper procedure proper surgeon IV antibiotics per we were administered. I began by making a incision over the distal 4 cm of the prior incision. Full-thickness flaps were taken down with the plate and a periosteal elevator was used to clear away tissue from the screw holes and 7 screws were removed with a screwdriver without difficulty or complication. I then went to the proximal aspect of the plate where I made a 2 cm incision over the proximal 3 screw holes. Again full-thickness flaps were taken down to the plate periosteal elevator was used to identify the screw has any screw was removed easily with a screwdriver. I then repeated this process proximally 2 cm distal to this where it made a landy incision over the screw and remove the single remaining shaft screw without difficulty. I then used a periosteal elevator to undermine the plate and removed the plate distally. I then irrigated the proximal incisions and closed with absorbable suture and toyin. Distally I used a small curette to curette out the screw holes and to debride any irregularities of the cortical surface of the bone. There was no evidence for infection or unusual appearance to any of the examined bony tissues were screw holes. I then irrigated and closed the final incision with absorbable suture and toyin. Patient was placed in sterile dressing extubated brought to recovery room in stable condition. There were no known complications.
== END 2025-02-12 11:27 | disposition home or self-care (01) ==
LOC: HO.SSS 06:18
PROVIDERS: PCP Internal Medicine; Visit Provider Orthopaedic Surgery
PROC: (CPT 20680; principal; 2025-02-12 09:30)
DX: Z47.2 Encounter for removal of internal fixation device (principal); T84.84XA Pain due to internal orthopedic prosthetic devices, implants and grafts, initial encounter; M79.662 Pain in left lower leg; R20.0 Anesthesia of skin; Y79.2 Prosthetic and other implants, materials and accessory orthopedic devices associated with adverse incidents; S82.202D Unspecified fracture of shaft of left tibia, subsequent encounter for closed fracture with routine healing; M19.072 Primary osteoarthritis, left ankle and foot; J44.9 Chronic obstructive pulmonary disease, unspecified; Z85.850 Personal history of malignant neoplasm of thyroid; E11.65 Type 2 diabetes mellitus with hyperglycemia; I10 Essential (primary) hypertension; E78.5 Hyperlipidemia, unspecified; F41.1 Generalized anxiety disorder; Z86.711 Personal history of pulmonary embolism; Z79.01 Long term (current) use of anticoagulants; Z79.84 Long term (current) use of oral hypoglycemic drugs; Z79.899 Other long term (current) drug therapy; Z91.040 Latex allergy status; Z88.8 Allergy status to other drugs, medicaments and biological substances; Z98.890 Other specified postprocedural states; Z87.891 Personal history of nicotine dependence
CPT/HCPCS: 20680; 82947; J0131; J0665; J0690; J1100; J2003; J2250; J2405; J2704; J3010

== ENCOUNTER → 2025-02-12 06:18 | Outpatient (BNV) | payer MEDICARE, OTHER, SELFPAY | PROVIDERS: PCP Internal Medicine; Visit Provider Orthopaedic Surgery | DX: Z47.2 Encounter for removal of internal fixation device (principal); S82.92 Unspecified fracture of left lower leg | CPT/HCPCS: 20680 ==

== ENCOUNTER 2025-02-18 14:14 | Outpatient (REF) | payer MEDICARE, OTHER, SELFPAY ==
--- NOTE | ~2025-02-18 | XR_ITS ---
EXAMINATION: XR ANKLE 3 OR MORE VIEWS LEFT HISTORY: M25.579 - Pain in unspecified ankle and joints of unspecified foot COMPARISON: Comparison is made with plain films of the left tibia and fibula dated 11/04/2024. FINDINGS: Three views of the left ankle are submitted. Osseous mineralization is normal. Again seen is internal fixation of the distal fibula with a sideplate and multiple orthopedic screws. The previously seen fixation hardware along the distal tibia has been removed. The oblique fracture line of the distal metaphysis remains visible. The joint spaces are preserved. Postsurgical changes are noted in the soft tissues. XR/XR ankle LT min 3V IMPRESSION: Interval removal of fixation hardware along the distal tibia. The fracture line remains visible. Internal fixation of the distal fibula without change. Electronically signed by: Jose Jeffery MD 02/19/2025 07:37 AM EDT
== END 2025-02-18 14:15 | disposition home or self-care (01) ==
LOC: HO.HOSX 14:14
PROVIDERS: PCP Internal Medicine; Visit Provider Physician Assistant
DX: S82.202G Unspecified fracture of shaft of left tibia, subsequent encounter for closed fracture with delayed healing (principal)
CPT/HCPCS: 73610; 99212

== ENCOUNTER 2025-02-18 14:14 | Outpatient (AMB) | payer MEDICARE, OTHER, SELFPAY ==
--- NOTE | 2025-02-18 14:28 | MHC.OFFVIS ---
Intake Visit Reasons: PO-LT Tibial RAISSA 02/12/25 Intake Note: Ya is a 64 year old female who presents today for a post op appointment s/p left Tibial RAISSA 02/12/25. Patient reports she is doing well, no pain to report. Patient stopped taking pain medication and is only taking Tylenol. Allergies capsaicin Adverse Reaction (Intermediate, Verified 02/06/25 11:36) Rash Iodinated Contrast Media [IV Contrast Dye] Adverse Reaction (Intermediate, Verified 02/06/25 11:36) Rash perflutren [From Definity] Adverse Reaction (Intermediate, Verified 02/06/25 11:36) Rash HPI HPI PO-LT Tibial RAISSA 02/12/25: Details: Ms. Cameron is a 64 yo female who presents to the office today for routine followup s/p left tibia removal of hardware performed on 02/12/[address] Rodriguez. The patient states that she is doing very well and has noticed a decrease in pain after the surgery. She is WBAT in a tall walking boot as instructed. Denies any additional complaints. [facility] Medical History Neurodermatitis Thyroid cancer Type 2 diabetes mellitus with hyperglycemia, without long-term current use of insulin Current use of shelter anticoagulation Prolapse of female pelvic organs Prepatellar bursitis Generalized anxiety disorder COPD (chronic obstructive pulmonary disease) Depression, major, recurrent, in complete remission Herpes zoster Left shoulder tendinitis GERD (gastroesophageal reflux disease) Calcaneal spur of left foot Arthritis of first metatarsophalangeal (MTP) joint of left foot Deviated nasal septum History of pulmonary embolism Essential hypertension Dyslipidemia Surgical History History of esophagogastroduodenoscopy (EGD) H/O colonoscopy Hx of blepharoplasty Status post open reduction and internal fixation (ORIF) of fracture (~09/16/23) History of fusion of cervical spine Hx of left breast biopsy History of partial thyroidectomy History of shoulder surgery History of tubal ligation Family History Father Alcoholism Mother HTN (hypertension) Hyperlipidemia CVD (cardiovascular disease) Sister Hyperlipidemia Alcoholism Substance use disorder Brother No problems noted. Sister No problems noted. Sister No problems noted. Sister No problems noted. Daughter No problems noted. Daughter No problems noted. 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 Social History Household Members: Significant Other Household Members Other:: 2 Housing: Apartment Are you a primary manager critical care unit to a significant other at home: No Do you presently have visiting nurse or other home services: No Alcohol intake: never Patient Tobacco Use Status: Former Tobacco user Tobacco use type: Cigarette Years Smoked: 20 e-Cigarette/Vaping Use: Never Used Second Hand Smoke Exposure: No Advance Directives Date on File: 11/08/22 service: No Current occupational status: disabled Cognitive needs: No Hearing needs: No Vision needs: Yes Physical Exam Const General: cooperative, healthy appearing and no acute distress Resp Effort & Inspection: normal respiratory effort and able to speak in complete sentences Extrem Other: Left tibia incision sites are c/d/i. Sanjuana intact. No surrounding erythema or draining. No signs of infection. Able to dorsi/plantar flex. Pedal pulse intact. NVI. 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 Cameron is a 64 yo female who presents to the office today for routine followup s/p left tibia removal of hardware performed on 02/12/[address] Rodriguez. The patient states that she is doing very well and has noticed a decrease in pain after the surgery. She is WBAT in a tall walking boot as instructed. Denies any additional complaints. While the office today, the case was discussed with Dr. Rodriguez in a collaborative treatment plan was created for her recovery. The patient will follow up in 1 week for anticipation of staple removal. She will remain in the tall walking boot weightbearing as tolerated for the next 3 weeks. After that she will transition to supportive footwear for the next 2 weeks and see us back in the office for repeat x-rays. Should she started to experience any increase in pain or discomfort she would return back into the boot as soon as possible, non weightbear and contact our office for further instruction. There are no signs of infection at this time. Her follow up will be in 1 week, sooner if needed. X-rays of the left ankle were obtained in the office today and reviewed by me, Desire Hernandez PA-C, and reveal successful removal of hardware of the left ankle. 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
--- OUTSIDE RECORDS SUMMARY | 2025-02-18 17:07 | XMS_ITS | Data Portability ---
Author Organization [place] [facility] AONE [place] Address [address] [facility] [address] [place] [address] Care Team Providers Care Risk Reduction Counselor Name Role Phone LIZ LOPEZ Primary Care [...] Left Knee Pain 2022 023 [facility], [address], [place], [address], 3 15:18:58 XR, knee, 1 or 2 view - Right Knee Pain 2022 023 [facility], [address], [place], [address], 3 15:18:58 XR, knee, weightbeari ng - Bilateral Knee Pain 2022 023 [facility], [address], [place], [address], 3 15:18:58 Medication Orders Kenalog 40 mg/mL suspension for injection 2022 023 ries5 [facility], [address] [place] [address], [address], 08:52:19 lidocaine (PF) 10 mg/mL (1 %) injection solution 2022 023 [place] [address] [facility], [address] [place] [address], [address], 08:52:23 Bactrim DS 800 mg-160 mg tablet 2022 023 [place] [address] [facility], [address] [place] [address], [address], 08:52:34 lidocaine (PF) 10 mg/mL (1 %) injection solution 2022 023 [place] [address] [facility], [address] [place] [address], [address], 08:52:23 Patient TargetsNo targets recorded. Patient Instructions Encounter Date Encounter Id Patient Instructions Last Modified By Organization Details Last Modified Time 04/27/2023 [id number] X-rays of both knees reveal overall well-maintained joint space with mild degenerative change without acute bony abnormality. Normal bone mineralization no obvious soft tissue findings are observed. Not available 04/28/2023 08:16:44 05/11/2023 [id number] You have been provided with a cortisone [...] Recorded Time Prepatellar bursitis of left knee 6190602059928 03 Active 2022 VIOLETTE CORRALES PA-C [address], [place], [address], [place] [facility], P 3 14:06:33 Osteoarthri tis of left knee joint 4201237558384 09 Active 2022 VIOLETTE CORRALES PA-C [address], [place], [address], [place] [facility], P 3 10:10:06 Synovial cyst of right knee 6599191546884 04 Active 2022 VIOLETTE CORRALES PA-C [address], [place], [address], [place] [facility], P 3 09:39:52 Problem Notes None recorded. Procedures Surgical History Date Name Laterality Status Provider Name and Address Organization Details Recorded Time 05/11/2023 Knee Joint/Burs a Asp & Inj completed VIOLETTE CORRALES PA-C [address], [place], [address], [place] [facility], P 05/11/2023 10:07:19 04/27/2023 Knee Joint/Burs a Asp & Inj completed VIOLETTE CORRALES PA-C [address], [place], [address], [place] [facility], P 04/28/2023 08:13:06 Knee arthroscop y/surgery completed Asha Rosario [place] [facility], P 04/27/2023 13:25:28 Imaging Results None recorded. Procedure Notes None recorded. Medical Equipment None Reported. Allergies Allergen ID Allergen Name Allergen Category Reaction Reaction Severity Criticality Documentation Date Start Date Code Code System Note Provider Name and Address Organization Details Recorded Time 7279 Iodinated contrast media (substanc e) medicatio n Not available Not available Not available 04/27/2023 81128 2003 SNOMED Asha Rosario null, [place] [facility], P 13:24:08 Medications Name Sig Start Date [...] Updated DateTime 04/27/2023 157.48 cm 36.4 kg/m2 02863.88 g [facility], 04/27/2023 13:24:24 Date Recorded Body height Provider Name an d Address Organization Details Last Updated DateTime 08/10/2023 157.48 cm [facility], 08/10/2023 08:53:04 Social History None recorded. [...] SNOMED-CT Code Diagnosis ICD10 Code Diagnosis Note [id number] CURT CALHOUN [facility] 299 [facility] [address] [place] [address] 04/27/2023 12:51:19 04/27/2023 14:11:04 Pain of left knee joint 2813233120 58445 M25.562 Pain of ri ght knee joint 2681259367 59982 M25.561 Pain of bi lateral knee joints 1945507233 23835 M25.561 Prepatella r bursitis of left knee 5478853457 67163 M70.42 [id number] CURT CALHOUN [facility] 299 [facility] [address] [place] [address] 05/11/2023 09:12:00 05/11/2023 10:08:57 Osteoarthritis of left knee joint 7390587480 62459 M17.12 [id number] CURT CALHOUN [facility] [address] [address] 08/10/2023 08:41:03 08/10/2023 09:56:06 Synovial cyst of right knee 9491423546 29668 M71.21 Health Concerns Section Related Observation LastModified by Organization Detai ls LastModified Time None Recorded Concern Status LastModified by Organization Details LastModified Time None Recorded Advance Directives Directive None Recorded Payers Encounter Date Sequence Insurance Name Policy Number Policy Orta Covered Member ID Orta Member ID Guarantor Name 04/27/2023 1 MEDICARE B-IA: [facility] Ya B Cameron [id number] Ya Cameron 04/27/2023 2 [facility] [id number] 2 Ya Cameron [id number] Ya Cameron 05/11/2023 1 MEDICARE B-IA: [facility] Ya B Cameron [id number] Ya Cameron 05/11/2023 2 [facility] [id number] 2 Ya Cameron [id number] Ya Cameron 08/10/2023 1 MEDICARE B-IA: [facility] Ya B Cameron [id number] Ya Cameron 08/10/[address] [place] [address] [id number] Ya Cameron [id number] Ya Cameron Notes Date Note Type Note [...] evaluation and treatment. VIOLETTE CORRALES PA-C [address] [facility],[address] [address], [place], [address], [place] [facility], P 06/07/2023 13:07:40 05/11/2023 text/html Assessment & [...] going on vacation. VIOLETTE CORRALES PA-C [address] [facility],[address], [place], [address], [place] [facility], P 05/11/2023 10:11:00 08/10/2023 text/html 63-year-old fema [...] shortness of breath. VIOLETTE CORRALES PA-C [address] [facility] [address], [place], [address], [place] [facility], P 08/10/2023 09:40:52 OBGyn Episode No OBEpisode recorded.
== END 2025-02-18 15:32 | disposition home or self-care (01) ==
LOC: HO.HOS 14:15
PROVIDERS: PCP Internal Medicine; Visit Provider Physician Assistant
DX: S82.202G Unspecified fracture of shaft of left tibia, subsequent encounter for closed fracture with delayed healing (principal)
CPT/HCPCS: 99024

== ENCOUNTER → 2025-02-18 14:43 | Outpatient (BNV) | payer MEDICARE, OTHER, SELFPAY | PROVIDERS: PCP Internal Medicine; Visit Provider Radiology Diagnostic Radiology | DX: S82.832D Other fracture of upper and lower end of left fibula, subsequent encounter for closed fracture with routine healing (principal) | CPT/HCPCS: 73610 ==

== ENCOUNTER 2025-02-28 08:35 | Outpatient (REF) | payer MEDICARE, OTHER, SELFPAY ==
--- NOTE | ~2025-02-28 | XR_ITS ---
EXAMINATION: XR ANKLE, LEFT CLINICAL INFORMATION: M25.579 - Pain in unspecified ankle and joints of unspecified foot COMPARISON: February 18, 2025. TECHNIQUE: AP, lateral, and mortise views of the left ankle. FINDINGS: Old traumatic deformity with persistent 1 mm calcified fracture site at the distal diaphysis metaphysis of the tibia. Metallic plate distal fibula and lateral malleolus with an old traumatic deformity and no acute cortical disruption or gross malalignment. Multiple skin toyin throughout the medial aspect distal lower leg medial malleolus region. Small exostosis at the Achilles tendon insertion. XR/XR ankle LT min 3V IMPRESSION: Nonunion fracture deformity distal diaphysis/metaphysis, left tibia. Intact hardware plate distal fibula.. Electronically signed by: Todd Copeland MD 02/28/2025 09:03 AM EDT
== END 2025-02-28 08:36 | disposition home or self-care (01) ==
LOC: HO.HOSX 08:35
PROVIDERS: Visit Provider Physician Assistant
DX: S82.202G Unspecified fracture of shaft of left tibia, subsequent encounter for closed fracture with delayed healing (principal); M25.572 Pain in left ankle and joints of left foot
CPT/HCPCS: 73610; 99212

== ENCOUNTER 2025-02-28 08:45 | Outpatient (AMB) | payer MEDICARE, OTHER, SELFPAY ==
--- OUTSIDE RECORDS SUMMARY | 2025-02-28 08:51 | XMS_ITS | Data Portability ---
Author Organization [place] [facility] AONE [place] Address [address] [place] [address] Care Team Providers Care Paving Inspector Name Role Phone ERICIFRAH ConnorLIZ Primary Care Provider [phone] Assessment Encounter Date Assessment Date Assessment LastModified [...] Left Knee Pain 2022 023 [facility], [address], [place], [address], 3 15:18:58 XR, knee, 1 or 2 view - Right Knee Pain 2022 023 [facility], [address], [place], [address], 3 15:18:58 XR, knee, weightbeari ng - Bilateral Knee Pain 2022 023 [facility], [address], [place], [address], 3 15:18:58 Medication Orders Kenalog 40 mg/mL suspension for injection 2022 023 [facility], [address] [facility], [place], [address], 3 08:52:19 lidocaine (PF) 10 mg/mL (1 %) injection solution 2022 023 [place] [address] [facility], [address] [place] [address], [address], 3 08:52:23 Bactrim DS 800 mg-160 mg tablet 2022 023 [place] [address] [facility], [address] [place] [address], [address], 3 08:52:34 lidocaine (PF) 10 mg/mL (1 %) injection solution 2022 023 [place] [address] [facility], [address] [place] [address], [address], 08:52:23 Patient TargetsNo targets recorded. Patient Instructions Encounter Date Encounter Id Patient Instructions Last Modified By Organization Details Last Modified Time 04/27/2023 [id number] X-rays of both knees reveal overall well-maintained joint space with mild degenerative change without acute bony abnormality. Normal bone mineralization no obvious soft tissue findings are observed. Not available 04/28/2023 08:16:44 05/11/2023 [id number] You have been provided with a cortisone [...] following the injection. This is called a flare . To help minimize the chances of [...] Recorded Time Prepatellar bursitis of left knee 1136062138023 03 Active 2022 VIOLETTE CORRALES PA-C [address], [place], [address], [place] [facility], P 3 14:06:33 Osteoarthri tis of left knee joint 3693526806370 09 Active 2022 VIOLETTE CORRALES PA-C [address], [place], [address], [place] [facility], P 3 10:10:06 Synovial cyst of right knee 0994380798758 04 Active 2022 VIOLETTE CORRALES PA-C [address], [place], [address], [place] [facility], P 3 09:39:52 Problem Notes None recorded. Procedures Surgical History Date Name Laterality Status Provider Name and Address Organization Details Recorded Time 05/11/2023 Knee Joint/Burs a Asp & Inj completed VIOLETTE CORRALES PA-C [address], [place], [address], [place] [facility], P 05/11/2023 10:07:19 04/27/2023 Knee Joint/Burs a Asp & Inj completed VIOLETTE CORRALES PA-C [address], [place], [address], [place] [facility], P 04/28/2023 08:13:06 Knee arthroscop y/surgery completed Asha Rosario [place] [facility], P 04/27/2023 13:25:28 Imaging Results None recorded. Procedure Notes None recorded. Medical Equipment None Reported. Allergies Allergen ID Allergen Name Allergen Category Reaction Reaction Severity Criticality Documentation Date Start Date Code Code System Note Provider Name and Address Organization Details Recorded Time 7279 Iodinated contrast media (substanc e) medicatio n Not available Not available Not available 04/27/2023 11887 2003 SNOMED Asha Rosario [facility], [place] [facility], P 13:24:08 Medications Name Sig Start Date [...] Updated DateTime 04/27/2023 157.48 cm 36.4 kg/m2 95029.88 g [facility], 04/27/2023 13:24:24 Date Recorded Body height Provider Name an d Address Organization Details Last Updated DateTime 08/10/2023 157.48 cm [facility], 08/10/2023 08:53:04 Social History None recorded. [...] SNOMED-CT Code Diagnosis ICD10 Code Diagnosis Note [id number] CURT CALHOUN [facility] 299 [facility] [address] [place] [address] 04/27/2023 12:51:19 04/27/2023 14:11:04 Pain of left knee joint 2572681707 01841 M25.562 Pain of ri ght knee joint 2902527021 66249 M25.561 Pain of bi lateral knee joints 9177486045 32662 M25.561 Prepatella r bursitis of left knee 9976990637 37341 M70.42 [id number] CURT CALHOUN [facility] 299 [facility] [address] [place] [place] [address] 05/11/2023 09:12:00 05/11/2023 10:08:57 Osteoarthritis of left knee joint 8952549202 30136 M17.12 [id number] CURT CALHOUN [facility] [address] [address] 08/10/2023 08:41:03 08/10/2023 09:56:06 Synovial cyst of right knee 5586301206 33034 M71.21 Health Concerns Section Related Observation LastModified by Organization Detai ls LastModified Time None Recorded Concern Status LastModified by Organization Details LastModified Time None Recorded Advance Directives Directive None Recorded Payers Insurance Date Sequence Insurance Name Policy Number Policy Orta Covered Member ID Orta Member ID Guarantor Name 02/16/2024 1 MEDICARE B-SD: [facility] [employer] Ya Herrmann Cameron [id number] Ya Cameron 04/05/2024 2 [facility] [id number] Ya Cameron [id number] Ya Cameron Notes Date Note Type Note [...] evaluation and treatment. VIOLETTE CORRALES PA-C [address] [facility] [address], [place], [address], [place] [facility], P 06/07/2023 13:07:40 05/11/2023 text/html Assessment & [...] going on vacation. VIOLETTE CORRALES PA-C [address] [facility] [address], [place], [address], [place] [facility], P 05/11/2023 10:11:00 08/10/2023 text/html 63-year-old fema [...] shortness of breath. VIOLETTE CORRALES PA-C 299 [facility] [address], [place], [address], [place] [facility], P 08/10/2023 09:40:52 OBGyn Episode No OBEpisode recorded.
--- NOTE | 2025-02-28 08:58 | A.OFFVIS_ITS ---
Intake Visit Reasons: PO-LT Tibial RAISSA 02/12/25 staple removal Intake Note: Ya is a 64 year old female who presents today for a staple removal appointment s/p left Tibial RAISSA 02/12/25. Patient reports she is doing okay. Allergies capsaicin Adverse Reaction (Intermediate, Verified 02/28/25 09:01) Rash Iodinated Contrast Media (IV Contrast Dye) Adverse Reaction (Intermediate, Verified 02/28/25 09:01) Rash perflutren (From Definity) Adverse Reaction (Intermediate, Verified 02/28/25 09:01) Rash HPI HPI PO-LT Tibial RAISSA 02/12/25 staple removal: Details: Ms. Cameron this is a 64-year-old female who presents to the office today status post left tibia removal of hardware performed on 02/12/[address] Rodriguez. Anticipation of staple removal while the office today. She presents to the office today in the tall walking boot weight-bearing as tolerated. She reports no concerns at this time. [facility] Medical History Neurodermatitis Thyroid cancer Type 2 diabetes mellitus with hyperglycemia, without long-term current use of insulin Current use of [facility] anticoagulation Prolapse of female pelvic organs Prepatellar bursitis Generalized anxiety disorder COPD (chronic obstructive pulmonary disease) Depression, major, recurrent, in complete remission Herpes zoster Left shoulder tendinitis GERD (gastroesophageal reflux disease) Calcaneal spur of left foot Arthritis of first metatarsophalangeal (MTP) joint of left foot Deviated nasal septum History of pulmonary embolism Essential hypertension Dyslipidemia Surgical History History of esophagogastroduodenoscopy (EGD) H/O colonoscopy Hx of blepharoplasty Status post open reduction and internal fixation (ORIF) of fracture (~09/16/23) History of fusion of cervical spine Hx of left breast biopsy History of partial thyroidectomy History of shoulder surgery History of tubal ligation Family History Father Alcoholism Mother HTN (hypertension) Hyperlipidemia CVD (cardiovascular disease) Sister Hyperlipidemia Alcoholism Substance use disorder Brother No problems noted. Sister No problems noted. Sister No problems noted. Sister No problems noted. Daughter No problems noted. Daughter No problems noted. 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 Social History Household Members: Significant Other Household Members Other:: 2 Housing: Apartment Are you a primary respiratory care program director to a significant other at home: No Do you presently have visiting nurse or other home services: No Alcohol intake: never Patient Tobacco Use Status: Former Tobacco user Tobacco use type: Cigarette Years Smoked: 20 e-Cigarette/Vaping Use: Never Used Second Hand Smoke Exposure: No Advance Directives Date on File: 11/08/22 service: No Current occupational status: disabled Cognitive needs: No Hearing needs: No Vision needs: Yes Review of Systems Const All systems reviewed & are unremarkable except as noted in HPI and below Physical Exam Const General: cooperative, healthy appearing and no acute distress Resp Effort & Inspection: normal respiratory effort and able to speak in complete sentences Extrem Other: Left lower extremity incision sites are clean dry and intact. Sanjuana intact. No surrounding erythema or drainage. No signs of infection. Able to dorsiflex and plantar flex. NVI. 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 Cameron this is a 64-year-old female who presents to the office today status post left tibia removal of hardware performed on 02/12/[address] Rodriguez. Anticipation of staple removal while the office today. She presents to the office today in the tall walking boot weight-bearing as tolerated. She reports no concerns at this time. While in the office today sanjuana were removed and Steri-Strips were applied. She was placed back into the tall walking boot for an additional 2 weeks. She will then transition to a supportive walking shoe. I will see her back in 2 weeks after her transitioned to the supportive walking shoe. Should she have any increase in pain she will contact our office immediately and stop weight- bearing at that time. Follow up will be 04/03/2025, sooner if needed. X-rays of the left ankle which were obtained while in the office today and were reviewed by me, Desire Hernandez PA-C, revealed lateral hardware intact. Successful removal of tibial hardware. 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
== END 2025-02-28 09:13 | disposition home or self-care (01) ==
LOC: HO.HOS 08:46
PROVIDERS: PCP Internal Medicine; Visit Provider Physician Assistant
DX: S82.202G Unspecified fracture of shaft of left tibia, subsequent encounter for closed fracture with delayed healing (principal)
CPT/HCPCS: 99024

== ENCOUNTER → 2025-02-28 08:50 | Outpatient (BNV) | payer MEDICARE, OTHER, SELFPAY | PROVIDERS: Visit Provider Radiology Diagnostic Radiology | DX: S82.292K Other fracture of shaft of left tibia, subsequent encounter for closed fracture with nonunion (principal) | CPT/HCPCS: 73610 ==

== ENCOUNTER 2025-04-02 07:09 | Outpatient (REF) | payer MEDICARE, OTHER, SELFPAY ==
--- OUTSIDE RECORDS SUMMARY | 2025-04-02 07:12 | XMS_ITS | Clinical Summary ---
Author Organization [facility] ity Address [address] [place] [address] Care Team Providers Care Warp Bleaching Vat Tender Name Role Phone Flakita Calero MD Primary [...] Panel) 04/09/2024 Colorectal Cancer Screening: Colonoscopy 04/09/2024 HIV Screening 04/09/2024 Hepatitis C Screening 04/09/2024 Hypertension/CHF/CAD Annual BMP Blood Test 04/09/2024 Social Influencers of Health Screening 04/09/2024 COVID-19 Vaccine ( - 2023-2 5 season) 2024 Depression Screening 09/11/2024 Influenza Vaccine (#1) 2025 RSV Immunization Adult Patie nts (1 [...] age to complete this topic Care Teams Warp Bleaching Vat Tender Relationship Specialty Start Date End Date Flakita Calero MD [address] [place] [address] PCP - General 02/15/08
--- OUTSIDE RECORDS SUMMARY | 2025-04-02 07:12 | XMS_ITS | Patient Health Record ---
[facility] Organization [facility] Address [address] [place] [address] Care Team Providers Care Vessel Specialist Name Role Phone Abdias QUIROZ, Flakita Bowens Primary Care Provider Un available Elena Mejia Unavailable [phone] Allergies Allergen (clinical drug ingredient) Drug/Non Drug [...] 1 capsule with food Orally Once a day; Duration: 30 day(s) 07/07/2021 Not-Taking QUEtiapine Fumarate Not-Taking Metoprolol & Diet Manage Prod Not-Taking Trospium Chloride 60mg once a day at night Active Xarelto Not-Taking Albuterol Sulfate HFA Active Omeprazole Not-Takin g Fluoxetine Active Keflex 500 MG 1 capsule Orally every 12 hrs; Duration: 7 days 06/13/2017 Not-Taking traZODone HCl 100 MG 1 tablet at bedtime Orally Once a day; Duration: 30 day(s) Active Lipitor Not-Taking oxyBUTYnin Not-Takin [...] Problem Type II diabetes mellitus without complication (266895317) Type 2 diabetes mellitus without complications (E11.9) Active confirmed Problem 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 (M19.072) Active confirmed Plan Of Treatment Pending Test Test Name Order Date X ray : Foot, left 3V 07/07/2021 [id number] NAIL, 1-5 06/06/2016 20875-Hxehnxgb Plate 01/17/2017 [id number] Plate 05/23/2016 [id number] 06/13/2017 48557- Debride <25 sq cm 07/21/2015 76222- Debride <25 sq cm 07/11/2017 77314- Debride <25 sq cm 07/25/2017 [id number] SKIN/TISSUE 06/27/2017 46554 I&D ABSCESS- SIMPLE,SINGLE 015 64615 I&D ABSCESS- SIMPLE,SINGLE 015 Insurance Providers Payer Name Payer Address Payer Phone Subscriber Number Group Number Insured Name Patient Relationship to Insured Coverage Start Date Coverage End Date Medicare National [employer] [address] [place] [address] [id number] Ya Cameron Self - patient is the insured [facility] [address] [place] [address] [id number] Ya Cameron Self - patient is the [...]
--- OUTSIDE RECORDS SUMMARY | 2025-04-02 07:12 | XMS_ITS | Clinical Summary ---
Author Organization [facility] Address [address] [place] [address] Care Team Providers Care Clinic Charge Nurse Name Role Phone Flakita Calero MD Primary Care Provider [phone] Allergies Active Allergy Reactions Criticality Noted Date [...] Vaccine (1 of 2 - PCV) 1967 Pneumococcal Vaccine (1 of 2 - PCV) 1967 Depression Screening 1973 Preventative Health Evaluation 1979 DTap / Tdap / Td (1 - Tdap) 1980 Cervical Cancer Screening (P ap Smear) 1982 Colon Cancer Screening (Colonoscopy) 2006 Breast Cancer Screening (Mammogram) 2011 Shingrix-Zoster Vaccine (1 of 2) 2011 Influenza Vaccine (#1) 2025 RSV Adult > 60+ Yrs or Pregn ant (1 - 1-dose 75+ series) 2036 Hepatitis B Vaccines Aged Out No long er eligible based on patient's age to complete this topic RSV Ped < 20 months Aged Out No longe r eligible based on patient's age to complete this topic Care Teams Clinic Charge Nurse Relationship Specialty Start Date End Date Flakita Calero MD [address] [facility] [place] [id number] PCP - General Internal Medicine 10/27/17
[2025-04-02 10:27] LABS: Hemoglobin A1C 192.5743 umol/L; Total Hemoglobin (HGBA1C) 3266.7061 umol/L
[2025-04-02 11:08] LABS: Alanine Aminotransferase 54 U/L (0-31); Anion Gap 14 (12-20); Aspartate Amino Transferase 48 U/L (5-31); Blood Urea Nitrogen 10 mg/dL (9-16); Calcium 9.1 mg/dL (8.4-10.2); Carbon Dioxide 23 mmol/L (22-29); Chloride 107 mmol/L (96-108); Cholesterol 124 mg/dL (<200); Estimated Glomerular Filt Rate > 60; HDL Cholesterol 34 mg/dL (>40); Potassium 4.0 mmol/L (3.3-5.1); Sodium 140 mmol/L (135-145); Triglycerides 183 mg/dL (<150)
[2025-04-02 11:22] LABS: Folate 10.6 ng/mL (> or = 4.0); Vitamin B12 478 pg/mL (200-900)
[2025-04-02 11:29] LABS: Microalbum/Creatinine Ratio Ur 17.1 ug/mg cr (<30)
== END 2025-04-02 07:10 | disposition home or self-care (01) ==
LOC: HO.HMGCLDS 07:09
PROVIDERS: PCP Internal Medicine; Visit Provider Internal Medicine
DX: E11.65 Type 2 diabetes mellitus with hyperglycemia (principal); I10 Essential (primary) hypertension; E78.5 Hyperlipidemia, unspecified; R79.89 Other specified abnormal findings of blood chemistry
CPT/HCPCS: 36415; 80048; 80061; 82043; 82306; 82570; 82607; 82746; 83036; 84450; 84460

== ENCOUNTER 2025-04-03 09:02 | Outpatient (REF) | payer MEDICARE, OTHER, SELFPAY ==
--- OUTSIDE RECORDS SUMMARY | 2025-04-04 09:21 | XMS_ITS | Data Portability ---
Author Organization [facility] [place] Address [address] [place] [address] Care Team Providers Care Slunk Skinner Name Role Phone LIZ LOPEZ Primary Care [...] Left Knee Pain 2022 023 [facility], [address], [address], [place], [address], 3 15:18:58 XR, knee, 1 or 2 view - Right Knee Pain 2022 023 [facility], [address], [place], [address], 3 15:18:58 XR, knee, weightbeari ng - Bilateral Knee Pain 2022 023 [facility], [address], [place], [address], 3 15:18:58 Medication Orders Kenalog 40 mg/mL suspension for injection 2022 023 [facility], [address] [place] [address], [address], 08:52:19 lidocaine (PF) 10 mg/mL (1 %) injection solution 2022 023 [place] [address] [facility], [address] [place] [address], [address], 08:52:23 Bactrim DS 800 mg-160 mg tablet 2022 023 [place] [address] [facility], [address] [place] [address], [address], 08:52:34 lidocaine (PF) 10 mg/mL (1 %) injection solution 2022 023 [place] [address] [facility], [address] [place] [address], [address], 08:52:23 Patient TargetsNo targets recorded. Patient Instructions Encounter Date Encounter Id Patient Instructions Last Modified By Organization Details Last Modified Time 04/27/2023 [id number] X-rays of both knees reveal overall well-maintained joint space with mild degenerative change without acute bony abnormality. Normal bone mineralization no obvious soft tissue findings are observed. Not available 04/28/2023 08:16:44 05/11/2023 [id number] You have been provided with a cortisone [...] Recorded Time Prepatellar bursitis of left knee 4444776347609 03 Active 2022 VIOLETTE CORRALES PA-C [address], [place], [address], [place] [facility], P 3 14:06:33 Osteoarthri tis of left knee joint 7352815721224 09 Active 2022 VIOLETTE CORRALES PA-C [address], [place], [address], [place] [facility], P 3 10:10:06 Synovial cyst of right knee 7201421626400 04 Active 2022 VIOLETTE CORRALES PA-C [address], [place], [address], [place] [facility], P 3 09:39:52 Problem Notes None recorded. Procedures Surgical History Date Name Laterality Status Provider Name and Address Organization Details Recorded Time 05/11/2023 Knee Joint/Burs a Asp & Inj completed VIOLETTE CORRALES PA-C [address], [place], [address], [place] [facility], P 05/11/2023 10:07:19 04/27/2023 Knee Joint/Burs a Asp & Inj completed VIOLETTE CORRALES PA-C [address], [place], [address], [place] [facility], P 04/28/2023 08:13:06 Knee arthroscop y/surgery completed Asha Rosario [facility], P 04/27/2023 13:25:28 Imaging Results None recorded. Procedure Notes None recorded. Medical Equipment None Reported. Allergies Allergen ID Allergen Name Allergen Category Reaction Reaction Severity Criticality Documentation Date Start Date Code Code System Note Provider Name and Address Organization Details Recorded Time 7279 Iodinated contrast media (substanc e) medicatio n Not available Not available Not available 04/27/2023 27033 2003 SNOMED Asha Rosario [facility], [place] [facility], P 13:24:08 Medications Name Sig Start Date [...] Updated DateTime 04/27/2023 157.48 cm 36.4 kg/m2 99308.88 g [facility], 04/27/2023 13:24:24 Date Recorded Body height Provider Name an d Address Organization Details Last Updated DateTime 08/10/2023 157.48 cm [facility], 08/10/2023 08:53:04 Social History None recorded. [...] SNOMED-CT Code Diagnosis ICD10 Code Diagnosis Note [id number] CURT CALHOUN [facility] 299 [facility] [address] [place] [address] 04/27/2023 12:51:19 04/27/2023 14:11:04 Pain of left knee joint 4501151440 86904 M25.562 Pain of ri ght knee joint 7208034527 38485 M25.561 Pain of bi lateral knee joints 9803283538 50444 M25.561 Prepatella r bursitis of left knee 0292145000 81896 M70.42 [id number] CURT CALHOUN [facility] [address] [address] 05/11/2023 09:12:00 05/11/2023 10:08:57 Osteoarthritis of left knee joint 9392117792 57479 M17.12 [id number] CURT CALHOUN [facility] [address] [address] 08/10/2023 08:41:03 08/10/2023 09:56:06 Synovial cyst of right knee 2392484964 84090 M71.21 Health Concerns Section Related Observation LastModified by Organization Detai ls LastModified Time None Recorded Concern Status LastModified by Organization Details LastModified Time None Recorded Advance Directives Directive None Recorded Payers Insurance Date Sequence Insurance Name Policy Number Policy Orta Covered Member ID Orta Member ID Guarantor Name 02/16/2024 1 [place] [id number] Ya Cameron [id number] Ya Cameron 04/05/[address] [facility] [id number] Ya Cameron [id number] Ya Cameron Notes Date Note Type Note Provider Name and Address Organization Details Recorded Time 04/27/2023 text/html This is a pleasant 63-year-old female who comes in for evaluation [...] evaluation and treatment. VIOLETTE CORRALES PA-C 299 [facility] [address], [place], [address], [place] [facility], P 06/07/2023 13:07:40 05/11/2023 text/html Assessment & Plan: Date of visit 04/27/2023 (new patient)This is [...] going on vacation. VIOLETTE CORRALES PA-C [address] [facility] [address], [place], [address], [place] [facility], [facility] 05/11/2023 10:11:00 08/10/2023 text/html 63-year-old female received cortisone injection of the left knee [...] shortness of breath. VIOLETTE CORRALES PA-C [address] [facility] [address], [place], [address], [place] [facility], [facility] 08/10/2023 09:40:52 OBGyn Episode No OBEpisode recorded.
--- OUTSIDE RECORDS SUMMARY | 2025-04-04 09:21 | XMS_ITS | Clinical Summary ---
Author Organization [facility] ity Address [address] [place] [address] Care Team Providers Care Trailer Sections Assembler Name Role Phone Flakita Calero MD Primary [...] age to complete this topic Care Teams Trailer Sections Assembler Relationship Specialty Start Date End Date Flakita Calero MD [address] [place] [address] PCP - General 02/15/08
--- OUTSIDE RECORDS SUMMARY | 2025-04-04 09:21 | XMS_ITS ---
Author Name [facility] Organization Unknown History of Medication Use Medication Directions Dispensed Refills Start Date End Date Stat us lidocaine (PF) 10 mg/mL (1 %) injection solution Take 2 mL by injection route. 04/28/2023 08/10/2023 completed Bactrim DS 800 mg-160 mg tablet Take 1 tablet every 12 hours by oral route. 04/27/2023 active azithromycin 500 mg tablet TAKE ONE TABLET BY MOUTH EVERY 24 HOURS 08/10/2023 active Bactrim DS 800 mg-160 mg tablet active lidocaine (PF) 10 mg/mL (1 %) injection solution active amlodipine 2.5 mg tablet TAKE TWO TABLETS BY MOUTH EVERY DAY active fluoxetine 20 mg capsule TAKE TWO CAPSULES BY MOUTH EVERY DAY active omeprazole 40 mg capsule,delayed release TAKE ONE CAPSULE BY MOUTH EVERY EVENING NEEDED FOR HEARTBURN SYMPTOMS active trazodone 100 mg tablet TAKE ONE TABLET BY MOUTH AT BEDTIME active Allergies Allergen Reaction Severity Comment Documented Date Source Statu s IODINATED CONTRAST MEDIA ENS_AON ECT Problems Problem Status Onset Date Problem Type Date of Resoluti on Source Osteoarthritis of left knee joint active 2023-05-11 ProblemAct ENS_AONECT Synovial cyst of right popliteal space active 2023-08-10 ProblemAct ENS_AONECT Prepatellar bursitis of left knee active 2023-04-27 ProblemAct ENS_AONECT Encounters Encounter Type Encounter Reason Primary Diagnosis Location Date Ambulatory [facility] 03/22/2024 Ambulatory [facility] 12/01/2023 Ambulatory [facility] 08/08/2023 Ambulatory [facility] 04/27/2023 Ambulatory [facility] 04/27/2023 Ambulatory [facility] 04/27/2023 Ambulatory [facility] 04/27/2023 Ambulatory [facility] 04/25/2023
--- OUTSIDE RECORDS SUMMARY | 2025-04-04 09:21 | XMS_ITS | Patient Health Record ---
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 (M19.072) Active confirmed Plan Of Treatment Pending Test Test Name Order Date X ray : Foot, left 3V 07/07/2021 [id number] NAIL, 1-5 06/06/2016 47744-Tvvnkirw Plate 01/17/2017 35464-Lxdqcutl Plate 05/23/2016 [id number] 06/13/2017 25127- Debride <25 sq cm 07/21/2015 85109- Debride <25 sq cm 07/11/2017 94916- Debride <25 sq cm 07/25/2017 96600-[id number] SKIN/TISSUE 06/27/2017 32180 I&D ABSCESS- SIMPLE,SINGLE 015 [id number] I&D ABSCESS- SIMPLE,SINGLE 015 Insurance Providers Payer Name Payer Address Payer Phone Subscriber Number Group Number Insured Name Patient Relationship to Insured Coverage Start Date Coverage End Date Medicare National [employer] [address] [place] [address] [id number] Ya Cameron Self - patient is the insured [facility] [address] [place] [address] [id number] Ya Cameron Self - patient is the [...]
--- OUTSIDE RECORDS SUMMARY | 2025-04-04 09:21 | XMS_ITS | Clinical Summary ---
Author Organization [facility] Address [address] [place] [address] Care Team Providers Care Beam Dyer Name Role Phone Flakita Calero MD Primary Care Provider [phone] Allergies Active Allergy Reactions Criticality Noted Date [...] age to complete this topic Care Teams Beam Dyer Relationship Specialty Start Date End Date Flakita Calero MD [address] [facility] [place] [id number] PCP - General Internal Medicine 10/27/17
== END 2025-04-03 09:03 | disposition home or self-care (01) ==
LOC: HO.HOSX 09:02
PROVIDERS: Visit Provider Physician Assistant
DX: Z13.89 Encounter for screening for other disorder (principal)

== ENCOUNTER 2025-04-07 09:11 | Outpatient (REF) | payer MEDICARE, OTHER, SELFPAY ==
--- NOTE | ~2025-04-07 | XR_ITS ---
EXAMINATION: XR ANKLE 3 OR MORE VIEWS LEFT HISTORY: M25.579 - Pain in unspecified ankle and joints of unspecified foot COMPARISON: Comparison is made with the prior examination dated 02/28/2025. FINDINGS: Three views of the left ankle are submitted. Osseous mineralization is normal. Again seen is internal fixation of the distal fibula which appears healed. An oblique fracture of the distal tibia is not significantly changed in appearance. The fracture line remains visible. The joint spaces are preserved. The soft tissues are unremarkable. XR/XR ankle LT min 3V IMPRESSION: Internally fixed fracture of the distal fibula. No significant change in an oblique fracture of the distal tibia. Electronically signed by: Jose Jeffery MD 04/07/2025 11:56 AM EDT
--- OUTSIDE RECORDS SUMMARY | 2025-04-08 09:38 | XMS_ITS | Patient Health Record ---
Author Organization [facility] Address [address] [place] [address] Care Team Providers Care Market Research Lead Name Role Phone Abdias QUIROZ, Flakita Bowens Primary Care Provider Un available Elena Mejia Unavailable [phone] Allergies Allergen (clinical drug ingredient) Drug/Non Drug [...] Problem Type II diabetes mellitus without complication (450396176) Type 2 diabetes mellitus without complications (E11.9) Active confirmed Problem Localized, primary osteoarthritis of the ankle and/or foot (381703698) Osteoarthritis of left ankle and foot (M19.072) Active confirmed Plan Of Treatment Pending Test Test Name Order Date X ray : Foot, left 3V 07/07/2021 [id number] NAIL, 1-5 06/06/2016 [id number] Plate 01/17/2017 [id number] Plate 05/23/2016 [id number] 06/13/2017 45840- Debride <25 sq cm 07/21/2015 72773- Debride <25 sq cm 07/11/2017 15668- Debride <25 sq cm 07/25/2017 [id number] SKIN/TISSUE 06/27/2017 19866 I&D ABSCESS- SIMPLE,SINGLE 015 [id number] I&D ABSCESS- SIMPLE,SINGLE 015 Insurance Providers Payer Name Payer Address Payer Phone Subscriber Number Group Number Insured Name Patient Relationship to Insured Coverage Start Date Coverage End Date Medicare National [employer] [address] [place] [address] [id number] Ya Cameron Self - patient is the insured [facility] [address] [place] [address] [id number] Ya Cameron Self - patient is the [...]
--- OUTSIDE RECORDS SUMMARY | 2025-04-08 09:38 | XMS_ITS | Clinical Summary ---
Author Organization [facility] Address [address] [place] [address] Care Team Providers Care Collar Baster Jumpbasting Name Role Phone Flakita Calero MD Primary Care Provider [phone] Allergies Active Allergy Reactions Criticality Noted Date [...] age to complete this topic Care Teams Collar Baster Jumpbasting Relationship Specialty Start Date End Date Flakita Calero MD [address] [facility] [place] [id number] PCP - General Internal Medicine 10/27/17
--- OUTSIDE RECORDS SUMMARY | 2025-04-08 09:38 | XMS_ITS | Clinical Summary ---
Author Organization [email or web address] ity Address [address] [place] [address] Care Team Providers Care Metalsmith Helper Name Role Phone Flakita Calero MD Primary Care Provider [phone] Surgical History Surgery Date Site/Laterality Comments NECK [...] age to complete this topic Care Teams Metalsmith Helper Relationship Specialty Start Date End Date Flakita Calero MD [address] [place] [address] PCP - General 02/15/08
== END 2025-04-07 09:12 | disposition home or self-care (01) ==
LOC: HO.HOSX 09:11
PROVIDERS: Visit Provider Physician Assistant
DX: S82.202G Unspecified fracture of shaft of left tibia, subsequent encounter for closed fracture with delayed healing (principal); M25.572 Pain in left ankle and joints of left foot; Z86.718 Personal history of other venous thrombosis and embolism; Z79.01 Long term (current) use of anticoagulants; X58.XXXD Exposure to other specified factors, subsequent encounter
CPT/HCPCS: 73610; 99212

== ENCOUNTER 2025-04-07 11:08 | Outpatient (AMB) | payer MEDICARE, OTHER, SELFPAY ==
--- NOTE | 2025-04-07 11:13 | MHC.OFFVIS ---
Vital Signs 04/07/25 11:17 Height 5 ft 2 in Weight 207 lb BMI 37.9 Intake Visit Reasons: PO-LT Tibial RAISSA 02/12/25 Intake Note: Ya is a 65 year old female who presents today for a post operative appointment s/p LT Tibial RAISSA 02/12/25. Patient reports having mild pain on the medial aspect of the lopez and her ankle is feeling a little numb. Allergies capsaicin Adverse Reaction (Intermediate, Verified 02/28/25 09:01) Rash Iodinated Contrast Media (IV Contrast Dye) Adverse Reaction (Intermediate, Verified 02/28/25 09:01) Rash perflutren (From Definity) Adverse Reaction (Intermediate, Verified 02/28/25 09:01) Rash HPI HPI PO-LT Tibial RAISSA 02/12/25: Details: Ms. Cameron is a 65-year-old female who presents to the office today for a follow-up status post left tib and fib ORIF performed originally on 09/16/2023. Patient was developing pain and therefore underwent removal of hardware of the left tibia on 02/12/[address] Rodriguez. Patient overall states that she is doing very well. She notes some numbness surrounding the medial incision site that is very localized. Additionally, she reports of calf cramping and pain. Patient does have a significant history for DVT and is on Eliquis. [facility] Medical History Neurodermatitis Thyroid cancer Type 2 diabetes mellitus with hyperglycemia, without long-term current use of insulin Current use of alf anticoagulation Prolapse of female pelvic organs Prepatellar bursitis Generalized anxiety disorder COPD (chronic obstructive pulmonary disease) Depression, major, recurrent, in complete remission Herpes zoster Left shoulder tendinitis GERD (gastroesophageal reflux disease) Calcaneal spur of left foot Arthritis of first metatarsophalangeal (MTP) joint of left foot Deviated nasal septum History of pulmonary embolism Essential hypertension Dyslipidemia Surgical History History of esophagogastroduodenoscopy (EGD) H/O colonoscopy Hx of blepharoplasty Status post open reduction and internal fixation (ORIF) of fracture (~09/16/23) History of fusion of cervical spine Hx of left breast biopsy History of partial thyroidectomy History of shoulder surgery History of tubal ligation Family History Father Alcoholism Mother HTN (hypertension) Hyperlipidemia CVD (cardiovascular disease) Sister Hyperlipidemia Alcoholism Substance use disorder Brother No problems noted. Sister No problems noted. Sister No problems noted. Sister No problems noted. Daughter No problems noted. Daughter No problems noted. 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 Social History Household Members: Significant Other Household Members Other:: 2 Housing: Apartment Are you a primary patient care associate to a significant other at home: No Do you presently have visiting nurse or other home services: No Alcohol intake: never Patient Tobacco Use Status: Former Tobacco user Tobacco use type: Cigarette Years Smoked: 20 e-Cigarette/Vaping Use: Never Used Second Hand Smoke Exposure: No Advance Directives Date on File: 11/08/22 service: No Current occupational status: disabled Cognitive needs: No Hearing needs: No Vision needs: Yes Review of Systems Const All systems reviewed & are unremarkable except as noted in HPI and below Physical Exam Vital Signs: BMI result Body Mass Index 37.9 Const General: cooperative, healthy appearing and no acute distress Resp Effort & Inspection: normal respiratory effort and able to speak in complete sentences Extrem Other: Left lower extremity incision sites are clean dry and intact. The incision sites are well approximated and completely healed with no signs of infection. No surrounding erythema. She has full range of motion of the ankle. Patient reports calf pain with Homans. However, the calf is supple. NVI. 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 Cameron is a 65-year-old female who presents to the office today for a follow-up status post left tib and fib ORIF performed originally on 09/16/2023. Patient was developing pain and therefore underwent removal of hardware of the left tibia on 02/12/[address] Rodriguez. Patient overall states that she is doing very well. She notes some numbness surrounding the medial incision site that is very localized. Additionally, she reports of calf cramping and pain. Patient does have a significant history for DVT and is on Eliquis. While in the office today, the patient does express that she has left calf cramping. She does have some slight tenderness with calf squeeze. Due to her past medical history significant for DVT and chronic anticoagulation use of Eliquis, I have placed a stat ultrasound of the left lower extremity to rule out DVT. If there is a DVT the patient will be directed to her PCP or emergency department. If the ultrasound is negative the patient may follow up PRN, sooner if needed. X-rays of the left ankle which were obtained while in the office today and were reviewed by me, Desire Hernandez PA-C, revealed no acute fracture or dislocation, successful removal of painful tibial hardware. Distal fibular hardware remains intact. Orders: Orders XR ankle LT min 3V Today M25.579 - Pain in unspecified ankle and joints of unspecified foot US venous duplex LE LT Today S82.202G - Unspecified fracture of shaft of left tibia, subsequent encounter for closed fracture with delayed healing, S82.90XK - Unspecified fracture of unspecified lower leg, subsequent encounter for closed fracture with nonunion, Z79.01 - ferry terminal supervisor (current) use of anticoagulants, Z86.718 - Personal history of other venous thrombosis and embolism Coding Level of Care Code Global (35738) Diagnoses Hx of deep venous thrombosis Z86.718 Nonunion of fracture of lower leg S82.90XK Current use of terminal operator anticoagulation Z79.01 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
[2025-04-07 11:17] VITALS: BMI 37.9
--- OUTSIDE RECORDS SUMMARY | 2025-04-07 12:29 | XMS_ITS | Data Portability ---
Author Organization [facility] [place] Address [address] [place] [address] Care Team Providers Care Log Deck Tender Name Role Phone LIZ LOPEZ Primary Care [...] Left Knee Pain 2022 023 [facility], [address], [place], [address], 3 15:18:58 XR, knee, 1 or 2 view - Right Knee Pain 2022 023 [facility], [address], [place], [address], 3 15:18:58 XR, knee, weightbeari ng - Bilateral Knee Pain 2022 023 [facility], [address], [place], [address], 3 15:18:58 Medication Orders Kenalog 40 mg/mL suspension for injection 2022 023 [facility], [address] [place] [address], [address], 08:52:19 lidocaine (PF) 10 mg/mL (1 %) injection solution 2022 023 [place] [address] [facility], [address] [place] [address], [address], 08:52:23 Bactrim DS 800 mg-160 mg tablet 2022 023 [place] [address] [facility], [address] [place] [address], [address], 08:52:34 lidocaine (PF) 10 mg/mL (1 %) injection solution 2022 023 [place] [address] [facility], [address] [place] [address], [address], 08:52:23 Patient TargetsNo targets recorded. Patient Instructions Encounter Date Encounter Id Patient Instructions Last Modified By Organization Details Last Modified Time 04/27/2023 [id number] X-rays of both knees reveal overall well-maintained joint space with mild degenerative change without acute bony abnormality. Normal bone mineralization no obvious soft tissue findings are observed. Not available 04/28/2023 08:16:44 05/11/2023 [id number] You have been provided with a cortisone [...] Recorded Time Prepatellar bursitis of left knee 2055045408637 03 Active 2022 VIOLETTE CORRALES PA-C [address], [place], [address], [place] [facility], P 3 14:06:33 Osteoarthri tis of left knee joint 4661247096687 09 Active 2022 VIOLETTE CORRALES PA-C [address], [facility] [place], [address], [place] [facility], P 3 10:10:06 Synovial cyst of right knee 6461445110921 04 Active 2022 VIOLETTE CORRALES PA-C [address], [place], [address], [place] [facility], P 3 09:39:52 Problem Notes None recorded. Procedures Surgical History Date Name Laterality Status Provider Name and Address Organization Details Recorded Time 05/11/2023 Knee Joint/Burs a Asp & Inj completed VIOLETTE CORRALES PA-C [address], [place], [address], [place] [facility], P 05/11/2023 10:07:19 04/27/2023 Knee Joint/Burs a Asp & Inj completed VIOLETTE CORRALES PA-C [address], [place], [address], [place] [facility], P 04/28/2023 08:13:06 Knee arthroscop y/surgery completed Asha Rosario [facility], P 04/27/2023 13:25:28 Imaging Results None recorded. Procedure Notes None recorded. Medical Equipment None Reported. Allergies Allergen ID Allergen Name Allergen Category Reaction Reaction Severity Criticality Documentation Date Start Date Code Code System Note Provider Name and Address Organization Details Recorded Time 7279 Iodinated contrast media (substanc e) medicatio n Not available Not available Not available 04/27/2023 98939 2003 SNOMED Asha Rosario [facility], [place] [facility], P 13:24:08 Medications Name Sig Start Date [...] Updated DateTime 04/27/2023 157.48 cm 36.4 kg/m2 48674.88 g [facility], 04/27/2023 13:24:24 Date Recorded Body height Provider Name an d Address Organization Details Last Updated DateTime 08/10/2023 157.48 cm [facility], 08/10/2023 08:53:04 Social History None recorded. [...] SNOMED-CT Code Diagnosis ICD10 Code Diagnosis Note [id number] CURT CALHOUN [facility] 299 [facility] [address] [place] [address] 04/27/2023 12:51:19 04/27/2023 14:11:04 Pain of left knee joint 5309228253 53828 M25.562 Pain of ri ght knee joint 9571278338 63403 M25.561 Pain of bi lateral knee joints 4926082979 43924 M25.561 Prepatella r bursitis of left knee 5012301725 13054 M70.42 [id number] CURT CALHOUN [facility] [address] [address] 05/11/2023 09:12:00 05/11/2023 10:08:57 Osteoarthritis of left knee joint 8815830595 17534 M17.12 [id number] CURT CALHOUN [facility] [address] [address] 08/10/2023 08:41:03 08/10/2023 09:56:06 Synovial cyst of right knee 2802471269 11436 M71.21 Health Concerns Section Related Observation LastModified by Organization Detai ls LastModified Time None Recorded Concern Status LastModified by Organization Details LastModified Time None Recorded Advance Directives Directive None Recorded Payers Insurance Date Sequence Insurance Name Policy Number Policy Orta Covered Member ID Orta Member ID Guarantor Name 02/16/2024 1 [place] [email or web address] Ya Cameron [id number] Ya Cameron 04/05/2024 2 [facility] [id number] 2 Ya Cameron [id number] Ya Cameron OBGyn Episode No OBEpisode recorded.
--- OUTSIDE RECORDS SUMMARY | 2025-04-07 12:29 | XMS_ITS | Patient Health Record ---
Author Organization [facility] Address [address] [place] [address] Care Team Providers Care Manager Employee Benefits Name Role Phone Abdias QUIROZ, Flakita Bowens Primary Care Provider Un available Elena Mejia Unavailable [phone] Allergies Allergen (clinical drug ingredient) Drug/Non Drug [...] Problem Type II diabetes mellitus without complication (363844395) Type 2 diabetes mellitus without complications (E11.9) Active confirmed Problem Localized, primary osteoarthritis of the ankle and/or foot (337033331) Osteoarthritis of left ankle and foot (M19.072) Active confirmed Plan Of Treatment Pending Test Test Name Order Date X ray : Foot, left 3V 07/07/2021 65526-[id number] NAIL, 1-5 06/06/2016 14591-Yspumztp Plate 01/17/2017 09321-Mfdzymeo Plate 05/23/2016 36002-RYI 06/13/2017 10237- Debride <25 sq cm 07/21/2015 75463- Debride <25 sq cm 07/11/2017 43554- Debride <25 sq cm 07/25/2017 47283-[id number] SKIN/TISSUE 06/27/2017 10261 I&D ABSCESS- SIMPLE,SINGLE 015 64800 I&D ABSCESS- SIMPLE,SINGLE 015 Insurance Providers Payer Name Payer Address Payer Phone Subscriber Number Group Number Insured Name Patient Relationship to Insured Coverage Start Date Coverage End Date Medicare National Govt Svcs Inc [address] [place] [address] [id number] Ya Cameron Self - patient is the insured [facility] [address] [place] [address] [id number] Ya Cameron Self - patient is the [...]
--- OUTSIDE RECORDS SUMMARY | 2025-04-07 12:29 | XMS_ITS | Clinical Summary ---
Author Organization [facility] Address [address] [place] [address] Care Team Providers Care Property Developer Name Role Phone Flakita Calero MD Primary Care Provider [phone] Allergies Active Allergy Reactions Criticality Noted Date [...] age to complete this topic Care Teams Property Developer Relationship Specialty Start Date End Date Flakita Calero MD [address] [facility] [place] [id number] PCP - General Internal Medicine 10/27/17
--- OUTSIDE RECORDS SUMMARY | 2025-04-07 12:29 | XMS_ITS | Clinical Summary ---
Author Organization [facility] ity Address [address] [place] [address] Care Team Providers Care Certified Registered Dental Assistant Name Role Phone Flakita Calero MD Primary Care Provider [phone] Surgical History Surgery Date Site/Laterality Comments NECK [...] age to complete this topic Care Teams Certified Registered Dental Assistant Relationship Specialty Start Date End Date Flakita Calero MD [address] [place] [address] PCP - General 02/15/08
== END 2025-04-07 12:02 | disposition home or self-care (01) ==
LOC: HO.HOS 11:09
PROVIDERS: Visit Provider Physician Assistant
DX: Z86.718 Personal history of other venous thrombosis and embolism (principal); S82 Fracture of lower leg, including ankle; Z79.01 Long term (current) use of anticoagulants; S82.202G Unspecified fracture of shaft of left tibia, subsequent encounter for closed fracture with delayed healing
CPT/HCPCS: 99024

== ENCOUNTER → 2025-04-07 11:11 | Outpatient (BNV) | payer MEDICARE, OTHER, SELFPAY | PROVIDERS: Visit Provider Radiology Diagnostic Radiology | DX: M25.572 Pain in left ankle and joints of left foot (principal) | CPT/HCPCS: 73610 ==

== ENCOUNTER 2025-04-07 14:05 | Outpatient (REF) | payer MEDICARE, OTHER, SELFPAY ==
--- NOTE | ~2025-04-07 | US_ITS ---
EXAMINATION: US TRIPLEX LOWER EXTREMITY, LEFT CLINICAL INFORMATION: Pain, left lower extremity. COMPARISON: December 19, 2008 TECHNIQUE: Color-flow triplex imaging with spectral analysis and compression Doppler were performed on the left lower extremity. FINDINGS: Respiratory variation, normal compression and augmented flow are demonstrated in the interrogated left common femoral vein, superficial femoral vein, profunda femoral vein, popliteal vein and midcalf peroneal and posterior tibial venous segments . There is no Miller's cyst. US/US venous duplex LE IMPRESSION: No acute deep venous thrombosis interrogated veins, left lower extremity. Negative for DVT. Electronically signed by: Todd Copeland MD 04/07/2025 02:37 PM EDT
== END 2025-04-07 14:06 | disposition home or self-care (01) ==
LOC: HO.US 14:05
PROVIDERS: Visit Provider Physician Assistant
DX: S82.202G Unspecified fracture of shaft of left tibia, subsequent encounter for closed fracture with delayed healing (principal); S82.92 Unspecified fracture of left lower leg; M25.572 Pain in left ankle and joints of left foot; Z79.01 Long term (current) use of anticoagulants; Z86.718 Personal history of other venous thrombosis and embolism; X58.XXXD Exposure to other specified factors, subsequent encounter
CPT/HCPCS: 93971

== ENCOUNTER 2025-04-20 09:25 | Emergency (ER) | payer MEDICARE, OTHER, SELFPAY ==
--- NOTE | 2025-04-20 | ECG_ITS ---
Test Reason : CP Blood Pressure : */* mmHG Vent. Rate : 86 BPM Atrial Rate : 86 BPM P-R Int : 178 ms QRS Dur : 84 ms QT Int : 400 ms P-R-T Axes : 56 5 65 degrees QTcB Int : 478 ms Normal sinus rhythm Inferior infarct , age undetermined Possible Anterior infarct , age undetermined Abnormal ECG When compared with ECG of 27-Aug-2024 08:36, Inferior infarct is now Present Referred By: Generic ED Physician Electronically Signed By: Dominguez Yates
--- NOTE | ~2025-04-20 | US_ITS ---
CLINICAL HISTORY: RUQ Pain US abdomen limited Comparison: CT same date Findings: Fatty infiltration of the liver without focal abnormality. Right lobe 16.3 cm length. Visualized pancreas unremarkable. Gallbladder unremarkable without stones or wall thickening. Common duct 5.8 now next 9.7 mm diameter. Right kidney normal, cm in length. Impression: Fatty infiltration of the liver Otherwise unremarkable This document has been electronically signed by: Preet Ibarra MD on 04/20/2025 19:56:05
--- NOTE | ~2025-04-20 | CT_ITS ---
CLINICAL HISTORY: RUQ pain, vomiting ? blood CT abdomen and pelvis without contrast Comparison: CT/REG/SR - CT ABDOMEN PELVIS WO IV CON - 08/13/23 10:36 EST Findings: Study limited by lack of intravenous contrast. Specifically, evaluation of the vascular tree, solid abdominal organs, and gastrointestinal tract is limited without IV contrast administration. CT abdomen: Minor areas of scarring or atelectasis within the lung bases. No acute bony abnormality. Calcification of the visualized portion of the ascending thoracic aorta. No focal lesions identified within the unenhanced liver, spleen, pancreas, or adrenal glands. No calcified gallstones. 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 No hydronephrosis or perinephric stranding. No renal or ureteral calculi identified. There is an unchanged cyst within the lower pole of the left kidney. Small bowel loops are of normal caliber. No free fluid or free air. CT pelvis: No bladder calculi. No colonic wall thickening or pericolonic inflammatory stranding. Appendix is normal. No free fluid or free air. IMPRESSION: No acute imaging explanation for the patient's symptoms on noncontrast CT. This document has been electronically signed by: Yves Bowles MD on 04/20/2025 14:21:54
[2025-04-20 09:42] VITALS: BP 120/71; PULSE 85; RESP 18; TEMP 37.3; O2SAT 96; BMI 37.5
[2025-04-20 10:02] LABS: Hematocrit 37.2 % (37.0-47.0); Hemoglobin 12.1 g/dl (12.0-16.0); Imm Gran Abs Auto 0.02 X10*3/uL (0.00-0.03); Imm Gran Pct Auto 0.3 % (0.0-0.4); Lymphocytes Absolute Auto 2.4 X10*3/uL (1.2-4.9); MANUAL DIFF FLAG NO; Mean Corpuscular HGB Conc 32.5 g/dl (31.0-35.0); Mean Corpuscular Hemoglobin 28.4 pg (27.0-33.0); Mean Corpuscular Volume 87.3 fL (80.0-98.0); NRBC Abs Auto 0.000 X10*3/uL (0.0-0.012); NRBC Pct Auto 0.0 /100WBC (0.0-0.2); Platelet Count 289 X10*3/uL (160-400); Red Blood Count 4.26 X10*6/uL (4.20-5.50); White Blood Count 6.4 X10*3/uL (4.8-10.8)
--- OUTSIDE RECORDS SUMMARY | 2025-04-20 10:06 | XMS_ITS | Patient Health Record ---
Author [facility] Address [address] [place] [address] Care Team Providers Care Char House Supervisor Name Role Phone Abdias QUIROZ, Flakita Bowens Primary Care Provider Un available Elena Mejia Unavailable [phone] Allergies Allergen (clinical drug ingredient) Drug/Non Drug [...] Problem Type II diabetes mellitus without complication (152575079) Type 2 diabetes mellitus without complications (E11.9) Active confirmed Problem Localized, primary osteoarthritis of the ankle and/or foot (035582695) Osteoarthritis of left ankle and foot (M19.072) Active confirmed Plan Of Treatment Pending Test Test Name Order Date X ray : Foot, left 3V 07/07/2021 [id number] NAIL, 1-5 06/06/2016 [id number] Plate 01/17/2017 56745-Qqztvaen Plate 05/23/2016 [id number] 06/13/2017 79580- Debride <25 sq cm 07/21/2015 48475- Debride <25 sq cm 07/11/2017 56997- Debride <25 sq cm 07/25/2017 [id number]-[id number] SKIN/TISSUE 06/27/2017 80259 I&D ABSCESS- SIMPLE,SINGLE 015 [id number] I&D ABSCESS- SIMPLE,SINGLE 015 Insurance Providers Payer Name Payer Address Payer Phone Subscriber Number Group Number Insured Name Patient Relationship to Insured Coverage Start Date Coverage End Date Medicare National Gov[employer] Sv[employer] [address] [place] [address] [id number] Ya Cameron Self - patient is the insured [facility] [address] [place] [address] [id number] Ya Cameron Self - patient is the [...]
--- OUTSIDE RECORDS SUMMARY | 2025-04-20 10:06 | XMS_ITS | Clinical Summary ---
Author Organization [facility] Address [address] [place] [address] Care Team Providers Care Site Director Name Role Phone Flakita Calero MD Primary Care Provider [phone] Allergies Active Allergy Reactions Criticality Noted Date [...] age to complete this topic Care Teams Site Director Relationship Specialty Start Date End Date Flakita Calero MD [address] [facility] [place] [id number] PCP - General Internal Medicine 10/27/17
--- OUTSIDE RECORDS SUMMARY | 2025-04-20 10:06 | XMS_ITS | Clinical Summary ---
Author Organization [facility] ity Address [address] [place] [address] Care Team Providers Care House Supervisor Name Role Phone Flakita Calero MD Primary Care Provider [phone] Surgical History Surgery Date Site/Laterality Comments NECK [...] age to complete this topic Care Teams House Supervisor Relationship Specialty Start Date End Date Flakita Calero MD [address] [place] [address] PCP - General 02/15/08
[2025-04-20 10:22] LABS: Alanine Aminotransferase 74 U/L (0-31); Albumin Level 4.3 g/dL (3.5-5.0); Alkaline Phosphatase 102 U/L (39-117); Anion Gap 13 (12-20); Aspartate Amino Transferase 65 U/L (5-31); Blood Urea Nitrogen 12 mg/dL (9-16); Calcium 8.9 mg/dL (8.4-10.2); Carbon Dioxide 24 mmol/L (22-29); Chloride 106 mmol/L (96-108); Creatinine Clr Calc Pharmacy 78.3; Estimated Glomerular Filt Rate > 60; Lipase 13 U/L (8-78); Potassium 3.8 mmol/L (3.3-5.1); Sodium 139 mmol/L (135-145); Total Protein 7.0 g/dL (6.5-8.0)
--- NOTE | 2025-04-20 10:26 | ED.ABDPAIN ---
HPI - Abdominal Pain General Chief Complaint: Abdominal Pain Stated Complaint: pain on upper right side under breast Time Seen by Provider: 04/20/25 09:33 Source: patient Mode of arrival: ambulatory Limitations: no limitations History of Present Illness ED Provider: ELIAS Zavala HPI narrative: 65-year-old female history of DVT anticoagulated on Eliquis, GERD, hypertension, diabetes, prolonged QT presenting to the emergency department with complaints of diffuse abdominal pain worse to the right upper quadrant and reports that recently ( she threw up ?black liquid ?). She tells me that sometimes her pain radiates to her right shoulder. She reports pain has been constant for the past 4-5 days described as an achy pain. She feels like it may be worsening. Denies episodes like this in the past. She is anticoagulated currently last took Eliquis yesterday. Currently reports nausea however she has not thrown up since Monday. She denies chest pain, shortness breath, fevers, chills, sick contacts, rectal bleeding, difficulties with urination or bowel habits. Related Data Home Medications ?Medication ?Instructions ?Recorded ?Confirmed cetirizine 10 mg tablet 10 mg PO QAM 02/13/23 01/29/25 tolterodine 4 mg capsule,extended 4 mg PO BEDTIME 05/23/23 01/29/25 release 24 hr fluoxetine 20 mg capsule 40 mg PO QAM 01/29/25 01/29/25 metformin 500 mg tablet 500 mg PO BEDTIME 01/29/25 01/29/25 omeprazole 40 mg capsule,delayed 40 mg PO BEDTIME Heartburn symptoms 01/29/25 01/29/25 release Previous Rx's ?Medication ?Instructions ?Recorded buspirone 5 mg tablet 5 mg PO BID #90 tabs 07/04/24 atorvastatin 40 mg tablet 40 mg PO BEDTIME #90 tabs 12/23/24 trazodone 100 mg tablet 100 mg PO BEDTIME #30 caps 02/04/25 oxycodone-acetaminophen 5 mg-325 1 tab PO Q6H PRN pain 7 days #28 02/06/25 mg tablet tabs amlodipine 5 mg tablet 5 mg PO QAM #90 tabs 03/17/25 cyanocobalamin (vitamin B-12) 1,000 mcg PO DAILY #90 tabs 03/31/25 1,000 mcg tablet (Vitamin B-12) apixaban 5 mg tablet (Eliquis) 5 mg PO BID #60 tabs 04/02/25 cefuroxime axetil 250 mg tablet 250 mg PO BID 7 days #14 tabs 04/20/25 ondansetron HCl 4 mg tablet 4 mg PO Q8H PRN nausea and 04/20/25 vomiting #14 tabs Allergies Allergy/AdvReac Type Severity Reaction Status Date / Time capsaicin AdvReac Intermediate Rash Verified 04/20/25 09:47 Iodinated Contrast Media (IV AdvReac Intermediate Rash Verified 04/20/25 09:47 Contrast Dye) perflutren (From Transcriptic) AdvReac Intermediate Rash Verified 04/20/25 09:47 Review of Systems Review of Systems Yes all other systems are reviewed and are negative [facility] Past Medical History Attestation statement: The following information was validated with the patient. 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 Prolapse of female pelvic organs Prepatellar bursitis Generalized anxiety disorder COPD (chronic obstructive pulmonary disease) Depression, major, recurrent, in complete remission Herpes zoster Left shoulder tendinitis GERD (gastroesophageal reflux disease) Calcaneal spur of left foot Arthritis of first metatarsophalangeal (MTP) joint of left foot Deviated nasal septum History of pulmonary embolism Essential hypertension Dyslipidemia Surgical History History of esophagogastroduodenoscopy (EGD) H/O colonoscopy Hx of blepharoplasty Status post open reduction and internal fixation (ORIF) of fracture (~09/16/23) History of fusion of cervical spine Hx of left breast biopsy History of partial thyroidectomy History of shoulder surgery History of tubal ligation Family History Family History Father Alcoholism Mother HTN (hypertension) Hyperlipidemia CVD (cardiovascular disease) Sister Hyperlipidemia Alcoholism Substance use disorder Brother No problems noted. Sister No problems noted. Sister No problems noted. Sister No problems noted. Daughter No problems noted. Daughter No problems noted. 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 Social History Social History Household Members: Significant Other Household Members Other:: 2 Housing: Apartment Are you a primary direct care specialist to a significant other at home: No Do you presently have visiting nurse or other home services: No Alcohol intake: current Alcohol intake frequency: holidays/special occasions only Patient Tobacco Use Status: Former Tobacco user Tobacco use type: Cigarette Years Smoked: 20 Smoked in Last 30 Days: No e-Cigarette/Vaping Use: Never Used Second Hand Smoke Exposure: No Use of substances other than those prescribed or required for medical reasons: No Advance Directives: Yes Advance Directives on File: Yes Advance Directives Date on File: 11/08/22 Patient : No service: No Current occupational status: disabled Cognitive needs: No Hearing needs: No Vision needs: Yes Physical Exam ED Exam Exam: Appearance: Alert.? Oriented X3.? No acute distress.? Head: Normocephalic, atraumatic, no step-offs or deformities Eyes: Pupils equal, round and reactive to light.? Neck: Normal inspection.? Neck supple.? CVS: Normal heart rate and rhythm.? Pulses normal.? Respiratory: No respiratory distress.? Breath sounds normal.? Abdomen: Soft and tenderness to palpation of right upper quadrant. Negative Valverde's sign however. Negative McBurney's and Rovsing..? Skin: Skin warm and dry.? Normal skin color.? Normal skin turgor.? Extremities: No lower extremity edema.? No calf ttp. 5/5 strength to bilateral upper and lower extremities Back: No midline tenderness, no C-spine tenderness, full range of motion, no CVA tenderness bilaterally Neuro: Oriented X 3.? No motor deficit.? No sensory deficit. CN 2-12 intact Vital Signs: Vital Signs - 24 hr 04/20/25 09:42 04/20/25 12:47 04/20/25 17:31 Temperature 99.2 F 97.7 F Pulse Rate 85 84 68 Respiratory Rate 18 18 18 Blood Pressure 120/71 174/71 H 143/60 H Pulse Oximetry 96 97 96 Oxygen Delivery Method Room Air Room Air Room Air BMI result Body Mass Index 37.5 Course Reevaluation(s) Reevaluation #1: CBC unremarkable. Chemistry with no acute findings meeting intervention. Elevated transaminases at baseline. Troponin negative. Lipase within normal limits. UA and imaging pending Time: 14:03 Reevaluation #2: Patient is still reporting significant discomfort to the right upper quadrant. Imaging still pending. Will medicate with Dilaudid. Time: 14:03 Reevaluation #3: Patient's CT scan with no abnormal findings. Will proceed to order ultrasound right upper quadrant Time: 14:40 Additional Reevaluation(s): CT abdomen pelvis with no acute findings on noncontrast CT. This study was done without contrast as patient is allergic to IV dye. Ultrasound pending. Upon re-evaluation patient reports she is still in significant pain again Dilaudid ordered. 1733 Urine with urinary tract infection. Ultrasound pending. First dose of Ceftin will be given here. 1827 Sign out to Denisse 2005 -- I received patient in sign out pending ultrasound results. I have reviewed all work up results patient has a UTI, treated with a dose of ceftin in ED today. her labs/ ct scan are unremarkable. us showing fatty liver, otherwise normal. discussed all results with patient and her daughter at bedside. she is well appearing, anxious for discharge home. abx sent to pharmacy for treatment. Patient has remained stable throughout ED visit today. Discussed worrisome signs and symptoms and when to return to the ED. All questions answered at this time. Patient is agreeable with disposition and stable for discharge. Medical Decision Making Medical Decision Making [facility] Narrative: 65-year-old female presents with abdominal pain worse in the right upper quadrant ongoing for the past 4-5 days also reports 1 episode of vomiting ?black liquid ?. She is anticoagulated on Eliquis last took it yesterday. Physical exam diffuse tenderness worse on the right upper quadrant negative Valverde's, Rovsing in McBurney's point History and physical exam concerning for gastroenteritis versus cholecystitis versus gastritis versus upper GI bleed. I do not suspect PE ( on anticoags) , ACS. Plan at this time labs, imaging, urine, EKG and troponin Differential Diagnosis Differential Diagnoses: The differential diagnosis associated with the presentation includes (History and physical exam concerning for gastroenteritis versus cholecystitis versus gastritis versus upper GI bleed. I do not suspect PE ( on anticoags) , ACS.) Admission/Observation Consideration of admission/observation: Escalation of care including admission/observation considered Lab Data [facility] Lab Attestation statement: I reviewed the patient's lab results. 04/20/25 09:56 04/20/25 09:56 Labs: Lab Results 04/20/25 04/20/25 Range/Units 09:56 17:18 WBC 6.4 (4.8-10.8) X10*3/uL RBC 4.26 (4.20-5.50) X10*6/uL Hgb 12.1 (12.0-16.0) g/dl Hct 37.2 (37.0-47.0) % MCV 87.3 (80.0-98.0) fL MCH 28.4 (27.0-33.0) pg MCHC 32.5 (31.0-35.0) g/dl RDW 14.1 (11.0-16.0) % Plt Count 289 (160-400) X10*3/uL MPV 9.9 (9.4-12.3) fL Immature Gran % (Auto) 0.3 (0.0-0.4) % Neut % (Auto) 52.7 (45-73) % Lymph % (Auto) 37.9 (20-40) % Irwin % (Auto) 7.5 (2-11) % Eos % (Auto) 1.1 (0-4) % Baso % (Auto) 0.5 (0-2) % Lymph # (Auto) 2.4 (1.2-4.9) X10*3/uL Irwin # (Auto) 0.5 (0.1-1.2) X10*3/uL Eos # (Auto) 0.1 (0.0-0.4) X10*3/uL Baso # (Auto) 0.0 (0.0-0.2) X10*3/uL Abs Immat Gran (auto) 0.02 (0.00-0.03) X10*3/uL Absolute Neuts (auto) 3.4 (2.0-8.3) x10*3/uL Absolute Nucleated RBC 0.000 (0.0-0.012) X10*3/uL Nucleated RBC % (auto) 0.0 (0.0-0.2) /100WBC Sodium 139 (135-145) mmol/L Potassium 3.8 (3.3-5.1) mmol/L Chloride 106 (96-108) mmol/L Carbon Dioxide 24 (22-29) mmol/L Anion Gap 13 (12-20) BUN 12 (9-16) mg/dL Creatinine 0.77 (0.5-1.4) mg/dL Estim Creat Clear Calc 78.3 Estimated GFR > 60 Random Glucose 170 H (60-115) mg/dL Calcium 8.9 (8.4-10.2) mg/dL Total Bilirubin 1.0 (0.0-1.0) mg/dL AST 65 H (5-31) U/L ALT 74 H (0-31) U/L Alkaline Phosphatase 102 (39-117) U/L Troponin I High Sens < 2.7 (<3.5-17.0) ng/L Total Protein 7.0 (6.5-8.0) g/dL Albumin 4.3 (3.5-5.0) g/dL Lipase 13 (8-78) U/L Urine Color Yellow Urine Appearance Clear Urine pH 5.5 (5.0-9.0) Ur Specific Clayton 1.015 (1.005-1.025) Urine Protein Negative (Neg-Trace) mg/dL Urine Glucose (UA) Negative (Negative) mg/dL Urine Ketones Negative (Negative) mg/dL Urine Blood Small (1+) H (Negative) Urine Nitrite Positive H (Negative) Ur Leukocyte Esterase Moderate (2+) H (Negative) Urine RBC 0-2 (0-2) /HPF Urine WBC 21-50 H (0-5) /HPF Ur Squamous Epith Cells 6-10 (0-2) /HPF Urine Bacteria 2+ (None Seen) Hyaline Casts 0-2 (0-2) /LPF Independent Interpretation I performed an independent interpretation of an: CT Scan (negative ) Radiology Impression Discussion of test interpretation with radiology: I have reviewed the radiologist's reading. External Record Review External record reviewed: Inpatient record, Office record, Outpatient record, Prior outpatient labs, Prior outpatient radiology, Primary care record and Outside ED record Chronic Conditions Patient?s care impacted by: Other (see hpi ) Medications Administered Discontinued Medications Generic Name Dose Route Start Last Admin Trade Name Freq PRN Reason Stop Dose Admin Cefuroxime Axetil 250 mg 04/20/25 17:34 04/20/25 17:41 Cefuroxime Axetil 250 Mg Tablet PO 04/20/25 17:35 250 mg ONCE ONE Administration Hydromorphone HCl 0.5 mg 04/20/25 14:02 04/20/25 14:16 Hydromorphone Hcl 0.5 Mg/0.5 Ml Syringe IVPUSH 04/20/25 14:03 0.5 mg ONCE ONE Administration Protocol Hydromorphone HCl 1 mg 04/20/25 17:03 04/20/25 17:31 Hydromorphone Hcl 1 Mg/Ml Syringe IVPUSH 04/20/25 17:04 1 mg ONCE ONE Administration Protocol Morphine Sulfate 4 mg 04/20/25 12:22 04/20/25 12:32 Morphine Sulfate 4 Mg/Ml Cartridge IVPUSH 04/20/25 12:23 4 mg ONCE ONE Administration Protocol Ondansetron HCl 4 mg 04/20/25 13:45 04/20/25 13:48 Ondansetron Hcl 4 Mg/2 Ml Vial IVPUSH 04/20/25 13:46 4 mg ONCE ONE Administration Critical Care Time Critical Care Time Critical Care Time: Yes Total Critical Care Time: 37 Attestation: I attest to this time spent taking care of the patient, obtaining history, physical, reviewing labs, imaging, treatment of patients condition +/- specialist/hospitalist consult +/- procedure Discharge Plan Discharge Clinical Impression: Abdominal pain, Nausea & vomiting, UTI (urinary tract infection) Patient Disposition: Home, Self-Care Instructions: Acute Nausea and Vomiting (DC), Abdominal Pain (ED) Additional Instructions: Take your medications as prescribed. If you were prescribed antibiotics today, it is important that you take your medication to their entirety, do not skip any doses, do not finish them early. Follow-up with your primary care provider this week. Return to the emergency department with new or worsening symptoms. Such as fevers, chills, chest pain, shortness of breath, nausea, vomiting, dizziness, headache, vision changes, lethargy In case of emergency call [address] abd and pelvis IMPRESSION: No acute imaging explanation for the patient's symptoms on noncontrast CT. US abdomen limited Impression: Fatty infiltration of the liver Otherwise unremarkable Your urine showed a urinary tract infection. Antibiotics have been prescribed Prescriptions: New ondansetron HCl 4 mg tablet 4 mg PO Q8H PRN (Reason: nausea and vomiting) Qty: 14 0RF cefuroxime axetil 250 mg tablet 250 mg PO BID 7 Days Qty: 14 0RF No Action buspirone 5 mg tablet 5 mg PO BID Qty: 90 5RF atorvastatin 40 mg tablet 40 mg PO BEDTIME Qty: 90 1RF trazodone 100 mg tablet 100 mg PO BEDTIME Qty: 30 2RF amlodipine 5 mg tablet 5 mg PO QAM Qty: 90 1RF cyanocobalamin (vitamin B-12) [Vitamin B-12] 1,000 mcg Tablet 1,000 mcg PO DAILY Qty: 90 3RF Eliquis 5 mg tablet 5 mg PO BID Qty: 60 5RF cetirizine 10 mg tablet 10 mg PO QAM metformin 500 mg tablet 500 mg PO BEDTIME omeprazole 40 mg capsule,delayed release(DR/EC) 40 mg PO BEDTIME fluoxetine 20 mg capsule 40 mg PO QAM tolterodine 4 mg capsule,extended release 24hr 4 mg PO BEDTIME oxycodone-acetaminophen 5-325 mg tablet 1 tab PO Q6H PRN (Reason: pain) 7 Days Qty: 28 0RF Rx Instructions: Partial Fill upon patient request. Referrals: Flakita Calero MD [Primary Care Provider, Internal Medicine] Print Language: Belarusian
[2025-04-20 10:33] LABS: Troponin-I High Sensitivity < 2.7 ng/L (<3.5-17.0)
--- NOTE | 2025-04-20 12:44 | PC.NURSE ---
patient a&ox3, iv inserted, labs previously drawn, pt went to ct scan/waiting for results, pt medicated with morphine for pain, call cherry within reach, family at bedside, plan of care ongoing
[2025-04-20 12:47] VITALS: BP 174/71; PULSE 84; RESP 18; O2SAT 97
--- NOTE | 2025-04-20 13:49 | PC.NURSE ---
pt c/o nausea and continued abd pain 05/21 states the medication didnt work
--- NOTE | 2025-04-20 14:25 | PC.NURSE ---
provider ordered dilauded, medicated with dilaudid per order, call cherry within reach, plan of care ongoing
--- NOTE | 2025-04-20 15:01 | PC.NURSE ---
pt states her pain reduced to 7/10
[2025-04-20 17:26] LABS: Appearance Urine Clear; Glucose Urine UA Negative (Negative); PH 5.5 (5.0-9.0); Specific Gravity - Urine 1.015 (1.005-1.025); UMIC TRIGGER UACC YES
[2025-04-20 17:31] VITALS: BP 143/60; PULSE 68; RESP 18; TEMP 36.5; O2SAT 96
[2025-04-20 17:39] LABS: UACC Culture Trigger YES
--- NOTE | 2025-04-20 17:43 | PC.NURSE ---
pt medicated for / pain as well as abx per orders
--- NOTE | 2025-04-20 19:25 | PC.NURSE ---
called [facility] [phone] spoke with rad rep Yue re: outstanding US taken 3 hours ago. Per Yue US industrial hygiene technician did not finalize images so that they can be assigned to a radiologist. spoke with CT scan- they advised the a US industrial hygiene technician is coming in to do another study on another pt. ELIAS Ball notified
--- NOTE | 2025-04-20 19:42 | PC.NURSE ---
Called [facility] again [phone] re: escalation of US read. Spoke with rad shahab Lugo that she can manually confirm study so that it can then ba assigned to a Rad for reading. PA Aware.
[2025-04-20 20:48] VITALS: BP 143/60; PULSE 68; RESP 18; TEMP 36.5; O2SAT 96
== END 2025-04-20 20:49 | disposition home or self-care (01) ==
PROVIDERS: Physician Assistant; Emergency Provider Emergency Medicine; PCP Internal Medicine
DX: N39.0 Urinary tract infection, site not specified (principal); R10.11 Right upper quadrant pain; R07.89 Other chest pain; R11.2 Nausea with vomiting, unspecified; E11.9 Type 2 diabetes mellitus without complications; R10.811 Right upper quadrant abdominal tenderness; Z86.718 Personal history of other venous thrombosis and embolism; Z79.01 Long term (current) use of anticoagulants; Z79.899 Other long term (current) drug therapy; Z87.891 Personal history of nicotine dependence
CPT/HCPCS: 36415; 74176; 76705; 80053; 81001; 83690; 84484; 85025; 87086; 87088; 87186; 93005; 96374; 96375; 96376; 99284; 99285; J1171; J2270; J2405

== ENCOUNTER → 2025-04-20 09:47 | Outpatient (BNV) | payer MEDICARE, OTHER, SELFPAY | PROVIDERS: Emergency Provider Emergency Medicine; PCP Internal Medicine; Visit Provider Internal Medicine Cardiovascular Disease | DX: R94.31 Abnormal electrocardiogram [ECG] [EKG] (principal); R07.9 Chest pain, unspecified | CPT/HCPCS: 93010 ==

== ENCOUNTER → 2025-04-20 10:31 | Outpatient (BNV) | payer MEDICARE, OTHER, SELFPAY | PROVIDERS: Emergency Provider Emergency Medicine; PCP Internal Medicine; Visit Provider Radiology Diagnostic Radiology | DX: N28.1 Cyst of kidney, acquired (principal); K76.0 Fatty (change of) liver, not elsewhere classified | CPT/HCPCS: 74176 ==

== ENCOUNTER 2025-06-17 16:46 | Emergency (ER) | payer MEDICARE, OTHER, SELFPAY ==
--- NOTE | 2025-06-17 | ECG_ITS ---
Test Reason : SYNCOPE Blood Pressure : */* mmHG Vent. Rate : 91 BPM Atrial Rate : 91 BPM P-R Int : 172 ms QRS Dur : 86 ms QT Int : 388 ms P-R-T Axes : 40 13 55 degrees QTcB Int : 477 ms Sinus rhythm with occasional Premature ventricular complexes Inferior infarct (cited on or before 20-Apr-2025) Abnormal ECG When compared with ECG of 20-Apr-2025 09:47, Premature ventricular complexes are now Present Referred By: Generic ED Physician Electronically Signed By: THUY SHULTZ MD
--- NOTE | ~2025-06-17 | XR_ITS ---
CLINICAL HISTORY: cough x1 week Two views of the chest. COMPARISON: XR chest dated 09/14/23 at 18:27 EST FINDINGS: Spinal fixation hardware along the partially visualized lower cervical spine. Normal heart size. Atherosclerotic thoracic aorta. Minimal linear atelectasis versus scarring along the left lung base. No pleural effusion. No pneumothorax. No acute fracture. IMPRESSION: 1. No acute cardiopulmonary abnormality. No consolidation. This document has been electronically signed by: Sudheer Sinclair MD on 06/17/2025 18:17:31
[2025-06-17 16:52] VITALS: BP 175/71; PULSE 90; RESP 20; TEMP 37; O2SAT 98; BMI 35.0
--- NOTE | 2025-06-17 17:09 | ED.GENADULT ---
HPI - General Adult General Chief complaint: Syncope Stated complaint: passed out around 2om, heart racing/sweating Time Seen by Provider: 06/17/25 21:40 Source: patient, RN notes reviewed and old records reviewed Mode of arrival: ambulatory Limitations: no limitations History of Present Illness ED Provider: Lori HPI narrative: 65-year-old female with a past medical history significant for DVT on Eliquis, diabetes, GERD, hypertension, anxiety presents for evaluation of reported syncopal episode. Patient reports that she was feeling palpitations earlier this afternoon. She reports that she was seated on the couch around 2:00 p.m. pain She reports that she then woke up slumped over with her head and a pillow on the couch. She believes she passed out. She complains of a headache and mild chest pressure. She denies any history of coronary artery disease. She did not feel dizzy, lightheaded or short of breath prior to passing out this afternoon. She has seen cardiology in the past for syncope and was told that it was ?vasovagal syncope. ? Related Data Home Medications ?Medication ?Instructions ?Recorded ?Confirmed cetirizine 10 mg tablet 10 mg PO QAM 02/13/23 01/29/25 tolterodine 4 mg capsule,extended 4 mg PO BEDTIME 05/23/23 01/29/25 release 24 hr fluoxetine 20 mg capsule 40 mg PO QAM 01/29/25 01/29/25 Previous Rx's ?Medication ?Instructions ?Recorded oxycodone-acetaminophen 5 mg-325 1 tab PO Q6H PRN pain 7 days #28 02/06/25 mg tablet tabs amlodipine 5 mg tablet 5 mg PO QAM #90 tabs 03/17/25 cyanocobalamin (vitamin B-12) 1,000 mcg PO DAILY #90 tabs 03/31/25 1,000 mcg tablet (Vitamin B-12) apixaban 5 mg tablet (Eliquis) 5 mg PO BID #60 tabs 04/02/25 cefuroxime axetil 250 mg tablet 250 mg PO BID 7 days #14 tabs 04/20/25 ondansetron HCl 4 mg tablet 4 mg PO Q8H PRN nausea and 04/20/25 vomiting #14 tabs metformin 500 mg tablet 500 mg PO BEDTIME #180 tabs 05/04/25 trazodone 100 mg tablet 100 mg PO BEDTIME #30 caps 05/04/25 omeprazole 40 mg capsule,delayed 40 mg PO BEDTIME Heartburn 05/07/25 release symptoms #90 caps atorvastatin 40 mg tablet 40 mg PO BEDTIME #90 tabs 06/17/25 buspirone 5 mg tablet 5 mg PO BID #90 tabs 06/17/25 Allergies Allergy/AdvReac Type Severity Reaction Status Date / Time capsaicin AdvReac Intermediate Rash Verified 06/17/25 16:56 Iodinated Contrast Media (IV AdvReac Intermediate Rash Verified 06/17/25 16:56 Contrast Dye) perflutren (From [employer]) AdvReac Intermediate Rash Verified 06/17/25 16:56 Review of Systems Constitutional: Constitutional: Denies body ache(s), Denies chills, Denies fever(s), Denies frequent falls and Reports headache(s) Eyes: Eyes: Denies blurry vision ENT: Denies vertigo, Denies dizziness and Reports headache(s) Cardiovascular: Cardiovascular: Reports chest pain, Reports syncope, Reports rapid heart rate, Reports palpitations and Denies dyspnea on exertion Respiratory: Respiratory: Denies cough and Denies dyspnea on exertion Gastrointestinal: Gastrointestinal: Denies abdominal pain Musculoskeletal: Musculoskeletal: Denies back pain, Denies arthralgias, Denies joint swelling and Denies limited range of motion Integumentary/Breasts: Skin/Breast: Denies rash Neurologic: Denies vertigo, Denies dizziness, Reports syncope, Denies frequent falls and Reports headache(s) Psychiatric: Psychiatric: Denies anxiety Endocrine: Endocrine: Reports palpitations PMFSH Past Medical History Medical History Neurodermatitis Thyroid cancer Type 2 diabetes mellitus with hyperglycemia, without long-term current use of insulin 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 Prolapse of female pelvic organs Prepatellar bursitis Generalized anxiety disorder COPD (chronic obstructive pulmonary disease) Depression, major, recurrent, in complete remission Herpes zoster Left shoulder tendinitis GERD (gastroesophageal reflux disease) Calcaneal spur of left foot Arthritis of first metatarsophalangeal (MTP) joint of left foot Deviated nasal septum History of pulmonary embolism Essential hypertension Dyslipidemia Surgical History History of esophagogastroduodenoscopy (EGD) H/O colonoscopy Hx of blepharoplasty Status post open reduction and internal fixation (ORIF) of fracture (~09/16/23) History of fusion of cervical spine Hx of left breast biopsy History of partial thyroidectomy History of shoulder surgery History of tubal ligation Family History Family History Father Alcoholism Mother HTN (hypertension) Hyperlipidemia CVD (cardiovascular disease) Sister Hyperlipidemia Alcoholism Substance use disorder Brother No problems noted. Sister No problems noted. Sister No problems noted. Sister No problems noted. Daughter No problems noted. Daughter No problems noted. 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 Social History Social History Household Members: Significant Other Household Members Other:: 2 Housing: Apartment Are you a primary healthcare consultant to a significant other at home: No Do you presently have visiting nurse or other home services: No Alcohol intake: current Alcohol intake frequency: holidays/special occasions only Patient Tobacco Use Status: Former Tobacco user Tobacco use type: Cigarette Years Smoked: 20 e-Cigarette/Vaping Use: Never Used Second Hand Smoke Exposure: No Advance Directives Date on File: 11/08/22 service: No Current occupational status: disabled Cognitive needs: No Hearing needs: No Vision needs: Yes Physical Exam ED Vital Signs: Vital Signs - 24 hr 06/17/25 21:35 06/17/25 21:35 06/18/25 00:15 Temperature 97.9 F 98.6 F Pulse Rate 83 71 Respiratory Rate 14 16 Blood Pressure 164/74 H 144/75 H Pulse Oximetry 95 94 95 Oxygen Delivery Method Room Air Room Air Room Air 06/18/25 00:35 Temperature 98.6 F Pulse Rate 71 Respiratory Rate 16 Blood Pressure 144/75 H Pulse Oximetry 95 Oxygen Delivery Method Room Air BMI result Body Mass Index 35.0 Const General: healthy appearing, comfortable, no acute distress, alert and awake Nutritional Appearance: well nourished Orientation/consciousness: patient oriented x3 HENMT Head: Yes normocephalic and Yes atraumatic Eyes Eyelids: Yes eyelids normal Conjunctivae: conjunctivae normal Sclerae: sclerae normal Corneas: corneas normal Pupils: Equal, round and reactive pupils present EOM: EOMs intact bilaterally Neck Neck: Yes full ROM Resp Effort & Inspection: normal respiratory effort, able to speak in complete sentences, no audible wheezes and not labored Auscultation: clear to auscultation bilaterally Cardio Rate: regular rate Rhythm: regular rhythm GI Inspection: No distended Palpation (GI): Soft to palpation, not firm, nontender, no guarding and not rigid Skin General skin exam: no rashes or lesions noted Neuro General: patient oriented x3 Cranial nerves: Yes CN's II-XII intact bilaterally, Yes Equal, round and reactive pupils present and Yes Bilaterally intact EOM present Cognition (Neuro): normal cognition Extrem Other: Moving all extremities well without any obvious deformities Course Course Course Narrative: RME: 65-year-old female with past medical history of PE presents to ED for syncopal episode. Patient was having URI so the last week and today she felt shortness of breath on exertion and then she syncopized. Patient denies any headache or dizziness. Labs EKG ordered Medications Administered Discontinued Medications Generic Name Dose Route Start Last Admin Trade Name Yosiq PRN Reason Stop Dose Admin Acetaminophen 975 mg 06/17/25 23:14 06/17/25 23:29 Acetaminophen 325 Mg Tablet PO 06/17/25 23:15 975 mg ONCE ONE Administration Medical Decision Making Medical Decision Making [facility] Narrative: 65-year-old female with a past medical history as above presents for evaluation of a reported syncopal episode. She feels back to baseline with the exception of a mild headache. She is requesting Tylenol which I will give her. She had no trauma to the head or neck, she has no neuro deficits, low suspicion for CVA or intracranial hemorrhage. Her EKG shows sinus rhythm with a PVC, random [address] changes, in his troponin negative, BNP negative, D-dimer negative. Plan for repeat troponin to rule out ACS. The patient reports she has had intermittent episodes of palpitations in the emergency department, she has not had any detected arrhythmias but has had a few PVCs. No evidence of infectious cause Differential Diagnosis Differential Diagnoses: The differential diagnosis associated with the presentation includes Arrhythmia Syncope Lightheadedness Near-syncope PE less likely ACS Lab Data [facility] Lab Attestation statement: I reviewed the patient's lab results. No leukocytosis, no significant anemia. Normal platelet count. No electrolyte abnormalities warranting region. Negative troponin, negative proBNP. Glucose is 219 but no evidence of DKA 06/17/25 17:24 06/17/25 17:24 Labs: Lab Results 06/17/25 06/17/25 06/17/25 Range/Units 17:17 17:23 17:24 WBC 7.9 (4.8-10.8) X10*3/uL RBC 4.52 (4.20-5.50) X10*6/uL Hgb 13.0 (12.0-16.0) g/dl Hct 38.4 (37.0-47.0) % MCV 85.0 (80.0-98.0) fL MCH 28.8 (27.0-33.0) pg MCHC 33.9 (31.0-35.0) g/dl RDW 14.2 (11.0-16.0) % Plt Count 290 (160-400) X10*3/uL MPV 10.0 (9.4-12.3) fL Immature Gran % (Auto) 0.5 H (0.0-0.4) % Neut % (Auto) 52.4 (45-73) % Lymph % (Auto) 39.3 (20-40) % Bell % (Auto) 6.6 (2-11) % Eos % (Auto) 0.8 (0-4) % Baso % (Auto) 0.4 (0-2) % Lymph # (Auto) 3.1 (1.2-4.9) X10*3/uL Bell # (Auto) 0.5 (0.1-1.2) X10*3/uL Eos # (Auto) 0.1 (0.0-0.4) X10*3/uL Baso # (Auto) 0.0 (0.0-0.2) X10*3/uL Abs Immat Gran (auto) 0.04 H (0.00-0.03) X10*3/uL Absolute Neuts (auto) 4.2 (2.0-8.3) x10*3/uL Absolute Nucleated RBC 0.000 (0.0-0.012) X10*3/uL Nucleated RBC % (auto) 0.0 (0.0-0.2) /100WBC PT 11.9 (10.9-12.4) SEC INR 1.0 (0.9-1.1) APTT 29.7 (26.7-34.1) SEC D-Dimer High Sensitivty < 150 NG/ML Sodium 140 (135-145) mmol/L Potassium 3.8 (3.3-5.1) mmol/L Chloride 106 (96-108) mmol/L Carbon Dioxide 24 (22-29) mmol/L Anion Gap 14 (12-20) BUN 14 (9-16) mg/dL Creatinine 0.92 (0.5-1.4) mg/dL Estim Creat Clear Calc 68.0 Estimated GFR > 60 POC Glucose 230 H (60-115) mg/dL Random Glucose 219 H (60-115) mg/dL Calcium 9.4 (8.4-10.2) mg/dL Magnesium 1.7 (1.6-2.6) mg/dL Total Bilirubin 0.7 (0.0-1.0) mg/dL AST 58 H (5-31) U/L ALT 61 H (0-31) U/L Alkaline Phosphatase 121 H (39-117) U/L Troponin I High Sens < 2.7 (<3.5-17.0) ng/L NT-Pro-B Natriuret Pep 46.5 (<300) pg/mL Total Protein 7.7 (6.5-8.0) g/dL Albumin 4.5 (3.5-5.0) g/dL COVID-19 (JHONATHAN) Negative (Negative) COVID-19 Clin Com See Note Influenza Type A (YOGESH) Negative (Negative) Influenza Type B (YOGESH) Negative (Negative) Influenza A & B Note See Note S. pyogenes GrpA YOGESH Negative (Negative) 06/17/25 Range/Units 23:00 WBC (4.8-10.8) X10*3/uL RBC (4.20-5.50) X10*6/uL Hgb (12.0-16.0) g/dl Hct (37.0-47.0) % MCV (80.0-98.0) fL MCH (27.0-33.0) pg MCHC (31.0-35.0) g/dl RDW (11.0-16.0) % Plt Count (160-400) X10*3/uL MPV (9.4-12.3) fL Immature Gran % (Auto) (0.0-0.4) % Neut % (Auto) (45-73) % Lymph % (Auto) (20-40) % Bell % (Auto) (2-11) % Eos % (Auto) (0-4) % Baso % (Auto) (0-2) % Lymph # (Auto) (1.2-4.9) X10*3/uL Bell # (Auto) (0.1-1.2) X10*3/uL Eos # (Auto) (0.0-0.4) X10*3/uL Baso # (Auto) (0.0-0.2) X10*3/uL Abs Immat Gran (auto) (0.00-0.03) X10*3/uL Absolute Neuts (auto) (2.0-8.3) x10*3/uL Absolute Nucleated RBC (0.0-0.012) X10*3/uL Nucleated RBC % (auto) (0.0-0.2) /100WBC PT (10.9-12.4) SEC INR (0.9-1.1) APTT (26.7-34.1) SEC D-Dimer High Sensitivty NG/ML Sodium (135-145) mmol/L Potassium (3.3-5.1) mmol/L Chloride (96-108) mmol/L Carbon Dioxide (22-29) mmol/L Anion Gap (12-20) BUN (9-16) mg/dL Creatinine (0.5-1.4) mg/dL Estim Creat Clear Calc Estimated GFR POC Glucose (60-115) mg/dL Random Glucose (60-115) mg/dL Calcium (8.4-10.2) mg/dL Magnesium (1.6-2.6) mg/dL Total Bilirubin (0.0-1.0) mg/dL AST (5-31) U/L ALT (0-31) U/L Alkaline Phosphatase (39-117) U/L Troponin I High Sens < 2.7 (<3.5-17.0) ng/L NT-Pro-B Natriuret Pep (<300) pg/mL Total Protein (6.5-8.0) g/dL Albumin (3.5-5.0) g/dL COVID-19 (JHONATHAN) (Negative) COVID-19 Clin Com Influenza Type A (YOGESH) (Negative) Influenza Type B (YOGESH) (Negative) Influenza A & B Note S. pyogenes GrpA YOGESH (Negative) Discharge Plan Discharge Clinical Impression: Syncope Patient Disposition: Home, Self-Care Instructions: Syncope (ED) Additional Instructions: Your workup in the ER today was reassuring. 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 Return for new or worsening symptoms Prescriptions: No Action amlodipine 5 mg tablet 5 mg PO QAM Qty: 90 1RF metformin 500 mg tablet 500 mg PO BEDTIME Qty: 180 1RF trazodone 100 mg tablet 100 mg PO BEDTIME Qty: 30 2RF omeprazole 40 mg capsule,delayed release(DR/EC) 40 mg PO BEDTIME Qty: 90 1RF atorvastatin 40 mg tablet 40 mg PO BEDTIME Qty: 90 1RF buspirone 5 mg tablet 5 mg PO BID Qty: 90 5RF cyanocobalamin (vitamin B-12) [Vitamin B-12] 1,000 mcg Tablet 1,000 mcg PO DAILY Qty: 90 3RF Eliquis 5 mg tablet 5 mg PO BID Qty: 60 5RF cetirizine 10 mg tablet 10 mg PO QAM fluoxetine 20 mg capsule 40 mg PO QAM ondansetron HCl 4 mg tablet 4 mg PO Q8H PRN (Reason: nausea and vomiting) Qty: 14 0RF cefuroxime axetil 250 mg tablet 250 mg PO BID 7 Days Qty: 14 0RF tolterodine 4 mg capsule,extended release 24hr 4 mg PO BEDTIME oxycodone-acetaminophen 5-325 mg tablet 1 tab PO Q6H PRN (Reason: pain) 7 Days Qty: 28 0RF Rx Instructions: Partial Fill upon patient request. Interventions: ED Discharge Assessment Last Done: 06/18/25 00:35 Discharge Date/Time: 06/18/25 00:36 Print Language: Romanian
[2025-06-17 17:33] LABS: Glucose, Whole Blood 230 mg/dL (60-115)
[2025-06-17 17:33] LABS: MANUAL DIFF FLAG NO
[2025-06-17 17:34] LABS: Hematocrit 38.4 % (37.0-47.0); Hemoglobin 13.0 g/dl (12.0-16.0); Imm Gran Abs Auto 0.04 X10*3/uL (0.00-0.03); Imm Gran Pct Auto 0.5 % (0.0-0.4); Lymphocytes Absolute Auto 3.1 X10*3/uL (1.2-4.9); Mean Corpuscular HGB Conc 33.9 g/dl (31.0-35.0); Mean Corpuscular Hemoglobin 28.8 pg (27.0-33.0); Mean Corpuscular Volume 85.0 fL (80.0-98.0); NRBC Abs Auto 0.000 X10*3/uL (0.0-0.012); NRBC Pct Auto 0.0 /100WBC (0.0-0.2); Platelet Count 290 X10*3/uL (160-400); Red Blood Count 4.52 X10*6/uL (4.20-5.50); White Blood Count 7.9 X10*3/uL (4.8-10.8)
[2025-06-17 17:41] LABS: INTERNATIONAL NORM RATIO 1.0 (0.9-1.1); Prothrombin Time 11.9 SEC (10.9-12.4)
[2025-06-17 17:43] LABS: Partial Thromboplastin Time 29.7 SEC (26.7-34.1)
[2025-06-17 17:49] LABS: Alanine Aminotransferase 61 U/L (0-31); Albumin Level 4.5 g/dL (3.5-5.0); Alkaline Phosphatase 121 U/L (39-117); Anion Gap 14 (12-20); Aspartate Amino Transferase 58 U/L (5-31); Blood Urea Nitrogen 14 mg/dL (9-16); Calcium 9.4 mg/dL (8.4-10.2); Carbon Dioxide 24 mmol/L (22-29); Chloride 106 mmol/L (96-108); Creatinine Clr Calc Pharmacy 68.0; Estimated Glomerular Filt Rate > 60; Magnesium 1.7 mg/dL (1.6-2.6); Potassium 3.8 mmol/L (3.3-5.1); Sodium 140 mmol/L (135-145); Total Protein 7.7 g/dL (6.5-8.0)
[2025-06-17 17:54] LABS: COVID-19 Test Negative (Negative); IDNOW Serial# 08D9AD1C; IDNOW Serial# 58CA691E; Influenza B2 Negative (Negative)
[2025-06-17 17:55] LABS: IDNOW Serial# 55D5AD1C; Strep A Nucleic Acid Negative (Negative)
[2025-06-17 17:56] LABS: NT Pro B Type Natriuretic Pept 46.5 pg/mL (<300)
[2025-06-17 17:59] LABS: Troponin-I High Sensitivity < 2.7 ng/L (<3.5-17.0)
[2025-06-17 18:10] LABS: D Dimer High Sensitivity < 150 NG/ML
[2025-06-17 21:35] VITALS: BP 164/74; PULSE 83; RESP 14; TEMP 36.6; O2SAT 94; O2SAT 95
--- OUTSIDE RECORDS SUMMARY | 2025-06-17 21:47 | XMS_ITS | Patient Health Record ---
[facility] Address [address] [place] [address] Care Team Providers Care Card Reader Name Role Phone Abdias QUIROZ, Flakita Bowens Primary Care Provider Un available Elena Mejia Unavailable [phone] Allergies Allergen (clinical drug ingredient) Drug/Non Drug [...] Problem Type II diabetes mellitus without complication (336393823) Type 2 diabetes mellitus without complications (E11.9) Active confirmed Problem Localized, primary osteoarthritis of the ankle and/or foot (424079850) Osteoarthritis of left ankle and foot (M19.072) Active confirmed Plan Of Treatment Pending Test Test Name Order Date X ray : Foot, left 3V 07/07/2021 [id number] NAIL, 1-5 06/06/2016 [id number] Plate 01/17/2017 [id number] Plate 05/23/2016 [id number] 06/13/2017 [id number]- Debride <25 sq cm 07/21/2015 55447- Debride <25 sq cm 07/11/2017 [id number]- Debride <25 sq cm 07/25/2017 [id number] SKIN/TISSUE 06/27/2017 12847 I&D ABSCESS- SIMPLE,SINGLE [id number] I&D ABSCESS- SIMPLE,SINGLE 015 Insurance Providers Payer Name Payer Address Payer Phone Subscriber Number Group Number Insured Name Patient Relationship to Insured Coverage Start Date Coverage End Date [employer] [address] [place] [address] [id number] Ya Cameron Self - patient is the insured [facility] [place] [address] [place] [address] [id number] Ya Cameron Self - patient is the [...]
--- OUTSIDE RECORDS SUMMARY | 2025-06-17 21:47 | XMS_ITS | Data Portability ---
Author Organization [place] [facility] B[facility] Rey AONE H[place]i Address [address] [place] [address] Care Team Providers Care Revenue Field Auditor Name Role Phone LIZ LOPEZ Primary Care Provider [phone] Assessment Encounter Date Assessment Date Assessment LastModified [...] Left Knee Pain 2022 023 [facility], [address], [place], [address], 3 15:18:58 XR, knee, 1 or 2 view - Right Knee Pain 2022 023 [facility], [address], [place], [address], 3 15:18:58 XR, knee, weightbeari ng - Bilateral Knee Pain 2022 023 [facility], [address], [place], [address], 3 15:18:58 Medication Orders Kenalog 40 mg/mL suspension for injection 2022 023 [facility], [address] [place] [address], [address], 08:52:19 lidocaine (PF) 10 mg/mL (1 %) injection solution 2022 023 [place] [address] [facility], [address] [place] [address], [address], 08:52:23 Bactrim DS 800 mg-160 mg tablet 2022 023 [place] [address] [facility], [address] [place] [address], [address], 08:52:34 lidocaine (PF) 10 mg/mL (1 %) injection solution 2022 023 [place] [address] [facility], [address] [place] [address], [address], 08:52:23 Patient TargetsNo targets recorded. Patient Instructions Encounter Date Encounter Id Patient Instructions Last Modified By Organization Details Last Modified Time 04/27/2023 [id number] X-rays of both knees reveal overall well-maintained joint space with mild degenerative change without acute bony abnormality. Normal bone mineralization no obvious soft tissue findings are observed. Not available 04/28/2023 08:16:44 05/11/2023 [id number] You have been provided with a cortisone [...] hours following the injection. This is called delmy jean baptiste . To help minimize the chances of [...] Name and Address Organization Details Recorded Time Arthritis of right knee joint 58402133069 Active 2017 Arthritis of right knee Not Available [facility] 5 23:03:55 Subacromi al bursitis of left shoulder 32521386188 51177 Active 2019 Subacromi al bursitis of left shoulder joint Not Available [facility] 5 23:03:56 Impingeme nt syndrome of left shoulder region 15589681923 9104 Active 2019 Impingeme nt syndrome of left shoulder region Not Available [facility] 5 23:03:56 Carpal tunnel syndrome of left wrist 56394896357 02 Active 2019 Left carpal tunnel syndrome Not Available [facility] 5 23:03:54 Carpal tunnel syndrome of right wrist 07478301671 9108 Active 2019 Right carpal tunnel syndrome Not Available [facility] 5 23:03:55 Cervical radiculop athy 58921828 Active 2019 Possible cervical radiculop athy Not Available [facility] 5 23:03:56 Bilateral carpal tunnel syndrome 86068954480 503825 Active 2019 Possible bilateral carpal tunnel syndrome Not Available [facility] 5 23:03:55 Prepatell ar bursitis of left knee 90712058448 9103 Active 2022 VIOLETTE CORRALES PA-C [address], [place], [address] , [place] [facility] 3 14:06:33 Osteoarth ritis of left knee joint 93780179206 9109 Active 2022 VIOLETTE CORRALES PA-C [address], [place], [address] , [place] [facility] 3 10:10:06 Synovial cyst of right knee 56693861437 9104 Active 2022 VIOLETTE CORRALES PA-C [address], [place], [address] , [place] [facility] 3 09:39:52 Problem Notes None recorded. Procedures Surgical History Date Name Laterality Status Provider Name and Address Organization Details Recorded Time 05/11/2023 Knee Joint/Burs a Asp & Inj completed VIOLETTE CORRALES PA-C [address], [place], [address], [place] [facility] 05/11/2023 10:07:19 04/27/2023 Knee Joint/Burs a Asp & Inj completed VIOLETTE CORRALES PA-C [address], [place], [address], [place] [facility] 04/28/2023 08:13:06 Knee arthroscop y/surgery completed [facility] 04/27/2023 13:25:28 Imaging Results None recorded. Procedure Notes None recorded. Medical Equipment None Reported. Allergies Allergen ID Allergen Name Allergen Category Reaction Reaction Severity Criticality Documentation Date Start Date Code Code System Note Provider Name and Address Organization Details Recorded Time 7279 Iodinated contrast media (substanc e) medicatio n Not available Not available Not available 04/27/2023 43163 2003 SNOMED [place], [place] [facility] 3 13:24:08 Medications Name Sig Start Date Stop Date Status Note LastModified by Organization Details LastModified Time quetiapine 25 mg tablet Take 25 mg by mouth every night at bedtime. 2016 active Not Available Not Available Not Avai lable celecoxib 200 mg capsule TAKE ONE CAPSULE [...] t Available atorvastati n 80 mg tablet atorvasta tin 80 mg tablet active Not Available Not Available No t Available trazodone 50 mg tablet Take 50 mg by mouth every night at bedtime as needed. 2017 active Not Available Not Available Not Avai lable oxybutynin chloride ER 10 mg tablet,exte nded release 24 hr TAKE TWO TABLETS (20MG) BY MOUTH EVERY DAY DIRECTED 2017 active Not Available Not Available Not Avai lable tolterodine ER 4 mg capsule,ext ended release [...] No t Available tramadol 50 mg tablet Take 50 mg by mouth every 6 (six) hours as needed. for pain 09/18 completed Not Available Not Available Not Available Kenalog 40 mg/mL suspension for injection Take 1 mL by injection route. 08/10 completed Not Available Not Available Not Available oxycodone-a cetaminophe n 5 mg-325 mg tablet Take 1 tablet by mouth every 6 (six) hours as needed. for pain 09/18 completed Not Available Not Available Not Available trazodone 100 mg tablet TAKE ONE TABLET BY MOUTH AT BEDTIME active Not Available Not Available No t Available methylpredn isolone acetate 40 mg/mL suspension for injection 09/18 completed Not Available Not Available Not Available ferrous sulfate 325 mg (65 mg iron) tablet TAKE ONE TABLET BY MOUTH EVERY DAY 2017 active Not Available Not Available Not Avai lable lisinopril 10 mg tablet Take 10 mg by mouth daily. in the morning 09/18 completed Not Available Not Available Not Available fluoxetine 10 mg capsule TAKE 3 CAPSULES IN THE MORNING ONCE DAILY 2017 active Not Available Not Available Not Avai lable omeprazole 20 mg capsule,del ayed release 2019 active Not Available Not Available Not Avai lable hydroxyzine HCl 25 mg tablet Take 25 mg by mouth every night at bedtime as needed. 09/18 completed Not Available Not Available Not Available lisinopril 5 mg tablet Take 5 mg by mouth every morning. 09/18 completed Not Available Not Available Not Available furosemide 20 mg tablet furosemid e 20 mg tablet active Not Available Not Available No t Available metoprolol succinate ER 25 mg tablet,exte nded release 24 hr 2017 active Not Available Not Available Not Avai lable cefuroxime axetil 500 mg tablet TAKE ONE TABLET BY MOUTH TWICE A DAY 08/10 completed Not Available Not Available Not Available albuterol sulfate HFA 90 mcg/actuati on aerosol inhaler 2019 active Not Available Not Available Not Avai lable fluoxetine 20 mg capsule TAKE TWO CAPSULES [...] Not Available Not Available No t Available Xarelto 20 mg tablet TAKE ONE TABLET BY MOUTH EVERY 24 HOURS 2017 active Not Available Not Available Not Avai lable Eliquis 5 mg tablet TAKE ONE TABLET BY MOUTH TWICE A DAY active Not Available Not Available No t Available Vitals Date Recorded Body height Body mass index (BMI) Body weight Provider Name and Address Organization Details Last Updated DateTime 04/27/2023 157.48 cm 36.4 kg/m2 75775.88 g [facility], 04/27/2023 13:24:24 Date Recorded Body height Provider Name an d Address Organization Details Last Updated DateTime 08/10/2023 157.48 cm [facility], 08/10/2023 08:53:04 Social History None recorded. Functional [...] Diagnosis SNOMED-CT Code Diagnosis ICD10 Code Diagnosis IMO Codes Diagnosis Note [id number] [facility] [address] [address] 04/27/2023 12:51:19 04/27/2023 14:11:04 Pain of left knee joint 1917452563 56934 M25.562 Pain of ri ght knee joint 2017072401 09061 M25.561 Pain of bi lateral knee joints 4535424198 85617 M25.561 Prepatella r bursitis of left knee 3300180396 94108 M70.42 [id number] [address] [facility] [address] [place] [place] [address] 05/11/2023 09:12:00 05/11/2023 10:08:57 Osteoarthritis of left knee joint 1532550480 54554 M17.12 [id number] CURT CALHOUN [facility] 299 [facility] [address] [place] [place] [address] 08/10/2023 08:41:03 08/10/2023 09:56:06 Synovial cyst of right knee 3998769699 50837 M71.21 Health Concerns Section Related Observation LastModified by Organization Detai ls LastModified Time None Recorded Concern Status LastModified by Organization Details LastModified Time None Recorded Advance Directives Directive None Recorded Payers Insurance Date Sequence Insurance Name Policy Number Policy Orta Covered Member ID Orta Member ID Guarantor Name 02/16/2024 1 [place]ARE [place] [employer] [facility] [id number] [facility] 04/05/2024 2 [facility] [id number] [facility] [id number] [facility] Notes Date Note Type Note Provider Name [...] evaluation and treatment. VIOLETTE CORRALES PA-C [address], [address], [place] [facility] 06/07/2023 13:07:40 05/11/2023 text/html Assessment & [...] going on vacation. VIOLETTE CORRALES PA-C [address], [address], [place] [facility] 05/11/2023 10:11:00 08/10/2023 text/html 63-year-old female [...] shortness of breath. VIOLETTE CORRALES PA-C 299 [facility],[address] [address], [place], [address], [place] [facility] 08/10/2023 09:40:52 OBGyn Episode No OBEpisode recorded.
--- OUTSIDE RECORDS SUMMARY | 2025-06-17 21:47 | XMS_ITS | Clinical Summary ---
Author Organization [facility] Address [address] [place] [address] Care Team Providers Care Adult Basic Education Manager Name Role Phone Flakita Calero MD Primary Care Provider [phone] Allergies Active Allergy Reactions Criticality Noted Date [...] age to complete this topic Care Teams Adult Basic Education Manager Relationship Specialty Start Date End Date Flakita Calero MD [address] [facility] [id number] PCP - General Internal Medicine 10/27/17
--- OUTSIDE RECORDS SUMMARY | 2025-06-17 21:48 | XMS_ITS | Clinical Summary ---
Author Organization [facility] ity Address [address] [place] [address] Care Team Providers Care Bill Of Materials Clerk Name Role Phone Flakita Calero MD Primary Care Provider [phone] Surgical History Surgery Date Site/Laterality Comments NECK [...] Last Done Comments Breast Cancer Screening 1961 Colorectal Cancer Screening: Colonoscopy 1961 DTaP,Tdap,and Td Vaccines (1 - Tdap) 1980 Cervical Cancer Screening: P ap Smear 1982 Pneumococcal Vaccine: 50+ Ye ars (1 of 1 - PCV) 2011 Zoster Vaccines (1 of 2) 2011 Cholesterol Screening (Lipid Panel) 04/09/2024 HIV Screening 04/09/2024 Hepatitis C Screening 04/09/2024 Hypertension/CHF/CAD Annual BMP Blood Test 04/09/2024 Social Influencers of Health Screening 04/09/2024 Depression Screening 09/11/2024 COVID-19 Vaccine ( - 2023-2 5 season) 2025 Influenza Vaccine (#1) 2025 RSV Immunization Adult [...] age to complete this topic Care Teams Bill Of Materials Clerk Relationship Specialty Start Date End Date Flakita Calero MD [address] [place] [address] PCP - General 02/15/08
--- OUTSIDE RECORDS SUMMARY | 2025-06-17 21:48 | XMS_ITS | Data Portability ---
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 [email or web address] Not available 12/29/2020 08:21:00 06/29/2021 06/29/2021 Ya [...] She can follow up in four weeks. [email or web address] Not available 06/29/2021 13:57:04 08/09/2021 08/09/2021 Ya [...] . She can follow up as needed. [email or web address] Not available 08/09/2021 13:15:14 01/12/2022 01/12/2022 Ya Cameron is [age] year old woman with left shoulder pain for the past few years . On exam ,she has pain on abduction and limited range of motion of her left shoulder. MRI left shoulder shows mild supraspinatus tendonitis and minimal distal inferior spinatus calcific tendonitis. Mild glenohumeral arthritis. I recommend a trial of Left shoulder steroid injections underultrasound guidance . The risks and benefits of the procedure were discussed in detail. She wishes to proceed. An appointment has been made for the same. 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 She is a diabetic. Blood sugar levels may temporarily increase after steroid injections. She was advised to check her blood glucose levels three times a day post procedure. If her levels are above 250, She was advised to contact her PCP. [email or web address] Not available 01/15/2022 10:58:35 01/24/2022 01/24/2022 Ya Cameron is 7 0 year old woman with left shoulder pain for the past few years . On exam ,she has pain on abduction and limited range of motion of her left shoulder. MRI left shoulder shows mild supraspinatus tendonitis and minimal distal inferior spinatus calcific tendonitis. Mild glenohumeral arthritis. She is here for a trial of Left shoulder steroid injections underultrasound guidance . The risks and benefits of [...] follow up after seeing the orthopedic surgeon. [email or web address] Not available 01/24/2022 16:08:56 Plan of Treatment [...] By Organization Details Last Modified Time 12/28/2020 20431 Telehealth visit: The patient was located at home for this telephone electronic visit and gave consent for this visit to be conducted via telehealth. 15 minutes was spent on this call and greater than 50% of the visit was spent on counseling and coordination of care [email or web address] Not available 12/29/2020 08:16:48 06/29/2021 [id number] She was advised against bed rest lasting longer than four days and to continue activities as tolerated. [email or web address] Not available 06/29/2021 13:50:55 08/09/2021 [id number] She was advised against bed rest lasting [...] care. [email or web address] Not available 08/09/2021 11:56:59 01/12/2022 [id number] She was advised against bed rest lasting longer than four days and to continue activities as tolerated. [email or web address] Not available 01/15/2022 10:55:55 01/24/2022 [id number] She was advised against bed rest lasting longer than four days and to continue activities as tolerated. [email or web address] Not available 01/24/2022 16:06:51 Reason for Referral None Reported. Problems Name Problem SNOMED Code Status Onset Date Resolution Date Notes Provider Name and Address Organization Details Recorded Time Degeneration of lumbar intervertebral disc [id number] Geovanna farfan MD [address] , [address], [place], [address], [place] [facility] 11:51:41 Lumbar radiculopathy 750573720 Geovanna farfan MD [address] , [address], [facility], [address], [place] [facility] 9 11:53:15 Lumbosacral spondylosis without myelopathy 66763620 Active Jagruti farfan MD [address] , [address], [place], [address], [place] [facility] 9 11:53:34 Degeneration of cervical intervertebral disc 79917553 Active Jagruti farfan MD [address] , [address], [place], [address], [place] [facility] 09:02:31 Muscle pain 87800335 Active Jagruti farfan MD [address] , [address], [place], [address], [place] [facility] 09:02:41 Problem Notes None recorded. Procedures Surgical History Date Name Laterality Status Provider Name and Address Organization Details Recorded Time 01/25/20 22 Intra-articular shoulder steroid injection under ultrasound guidance completed Jagruti Elizabeth MD [address] , [address], [place], [address], [place] [facility] 01/24/2022 16:06:02 06/29/20 21 Lumbar Epidural steroid injection under fluoroscopic guidance completed Jagruti Elizabeth MD [address] , [address], [place], [address], [place] [facility] 06/29/2021 13:51:52 07/21/20 20 Lumbar Epidural steroid injection under fluoroscopic guidance completed Jagruti Elizabeth MD [address] , [address], [place], [address], [place] [facility] 07/21/2020 15:54:12 10/23/19 20 Lumbar Epidural steroid injection under fluoroscopic guidance completed Jagruti Elizabeth MD [address] , [address], [place], [address], [place] [facility] 10/23/2019 14:39:47 05/30/20 19 Trigger Point Injections under ultrasound guidance completed Jagruti Elizabeth MD [address] , [address], [place], [address], [place] [facility] 05/30/2019 13:31:49 05/15/20 19 Trigger Point Injections under ultrasound guidance completed Jagruti Elizabeth MD [address] [facility] , [address], [place], [address], [place] [facility] 05/15/2019 14:15:41 04/02/20 19 Lumbar Epidural steroid injection under fluoroscopic guidance completed Jagruti Elizabeth MD [address] [facility] , [address], [place], [address], [place] [facility] 04/03/2019 08:35:11 10/09/19 19 Lumbar Epidural steroid injection under fluoroscopic guidance completed Jagruti Elizabeth MD [address] [facility] , [address], [place], [address], [place] [facility] 10/09/2018 [...] Name and Address Organization Details Recorded Time 52212 Iodinated contrast media (substanc e) medicatio n rash Not available Not available 09/14/2018 98096 2004 SNOMED < great er 20 years [...] Available Not Available Not Available amoxicillin 500 mg-maxine tipton clavulanate 125 mg tablet 09/14 completed Not [...] Not Available Vitals Date Recorded Body height Heart rate Oxygen saturation Oxygen saturation in Arterial blood by Pulse oximetry Systolic And Diastolic Provider Name and Address Organization Details Last Updated DateTime 2 157.48 cm 79 /min 98 % 98 % 149/75 mm[Hg] Eden Mcmullen [place] [facility] 2 14:01:32 Date Recorded Body height Body mass index (BMI) Body weight Heart rate Oxygen saturation Oxygen saturation in Arterial blood by Pulse oximetry Pain severity - 0-10 verbal numeric rating [Score] - Reported Systolic And Diastolic Provider Name and Address Organization Details Last Updated DateTime 2 157.48 cm 36.4 kg/m2 85623.8 8 g 80 /min 94 % 94 % 10 162/81 mm[Hg] Jagruti farfan MD [address] , [address], [place], [address], [place] [facility] 2 11:23:01 Date Recorded Body height Body mass index (BMI) Body weight Heart rate Oxygen saturation Oxygen saturation in Arterial blood by Pulse oximetry Systolic And Diastolic Provider Name and Address Organization Details Last Updated DateTime 1 157.48 cm 36.4 kg/m2 88011.8 8 g 84 /min 96 % 96 % 121/75 mm[Hg] Eden Mcmullen [place] [facility] 1 10:30:30 Date Recorded Body height Provider Name an d Address Organization Details Last Updated DateTime 08/09/2021 157.48 cm Jagruti Elizabeth MD [address] , [address], [place], [address], [place] [facility] 08/09/2021 11:57:31 Social History Question Answer Notes LastModified by Organizat ion Details LastModified Time Tobacco Smoking Status Former Smoker quit x 12 years Not Available [facility] 06/26/2020 03:16:11 Which Illicit Or Recreational Drugs Have You Used? No [id number] Information not available 06/26/2020 Education 12 Information no t available 09/14/2018 Live Alone Or With Others? With Others Information not available 09/14/2018 Marital Status Informatio n not available 09/14/2018 What Was The Date Of Your Most Recent Tobacco Screening? 03/27/2019 [id number] Information not available 06/26/2020 How Many Years Have You Smoked Tobacco? 20 [id number] Information not available 06/26/2020 Sex: Unknown Functional Status Question Answer Note LastModified by Organizat ion Details LastModified Time What is your level of alcohol consumption? Occasional [id number] Information not available 06/26/2020 Are you currently employed? No [id number] Information not available 06/26/2020 What is your occupation? Disability Information not available 09/14/2018 Mental Status None recorded. Family History Relationship [...] ICD10 Code Diagnosis IMO Codes Diagnosis Note [id number] Jagruti Elizabeth MD PAIN OFFICE [address] [place] [address] 09/14/2018 09:20:14 09/14/2018 12:05:18 Lumbosacral spondylosis without myelopathy 00800795 M47.817 Lumbar radiculopathy 128 922482 M54.16 Degenerati on of lumbar intervertebral disc 16848309 M51.36 [id number] Jagruti Elizabeth MD PAIN OFFICE [address] [place] [address] 10/09/2018 08:54:37 10/09/2018 10:59:45 Lumbosacral spondylosis without myelopathy 33840175 M47.817 Lumbar radiculopathy 128 561171 M54.16 Degenerati on of lumbar intervertebral disc 10378537 M51.36 83871 Jagruti Elizabeth MD PAIN OFFICE [address] [place] [address] 11/08/2018 08:45:11 11/08/2018 11:03:12 Lumbosacral spondylosis without myelopathy 14621684 M47.817 Lumbar radiculopathy 128 811742 M54.16 Degenerati on of lumbar intervertebral disc 75515989 M51.36 39977 Jagruti Elizabeth MD PAIN OFFICE [address] [place] [address] 03/26/2019 13:44:21 03/27/2019 16:06:04 Lumbosacral spondylosis without myelopathy 96020171 M47.817 Lumbar radiculopathy 128 653470 M54.16 Degenerati on of lumbar intervertebral disc 64461310 M51.36 62077 Jagruti Elizabeth MD PAIN OFFICE [address] [place] [address] 04/02/2019 14:22:38 04/03/2019 11:57:34 Lumbosacral spondylosis without myelopathy 63327217 M47.817 Lumbar radiculopathy 128 386316 M54.16 Degenerati on of lumbar intervertebral disc 04664128 M51.36 21397 Jagruti Elizabeth MD PAIN OFFICE [address] [place] [address] 05/06/2019 10:21:08 05/15/2019 11:02:55 Degeneration of cervical intervertebral disc 40761823 M50.30 Muscle pain 06878973 M79 .18 Degenerati on of lumbar intervertebral disc 37866129 M51.36 Lumbar radiculopathy 128 826457 M54.16 Lumbosacra l spondylosis without myelopathy 59848894 M47.817 88861 Jagruti Elizabeth MD PAIN OFFICE [address] [place] [address] 05/15/2019 13:13:23 05/15/2019 14:18:15 Degeneration of cervical intervertebral disc 55521380 M50.30 Muscle pain 76068764 M79 .18 Degenerati on of lumbar intervertebral disc 63100204 M51.36 Lumbar radiculopathy 128 037817 M54.16 Lumbosacra l spondylosis without myelopathy 42846456 M47.817 53289 Jagruti Elizabeth MD PAIN OFFICE [address] [place] [address] 05/30/2019 12:55:57 05/30/2019 13:33:51 Degeneration of cervical intervertebral disc 79004392 M50.30 Muscle pain 14958558 M79 .18 Degenerati on of lumbar intervertebral disc 48310031 M51.36 Lumbar radiculopathy 128 611723 M54.16 Lumbosacra l spondylosis without myelopathy 64622038 M47.817 44584 Jagruti Elizabeth MD PAIN OFFICE [address] [place] [address] 06/12/2019 11:37:11 06/24/2019 16:57:19 Degeneration of cervical intervertebral disc 64975340 M50.30 Muscle pain 05179301 M79 .18 Degenerati on of lumbar intervertebral disc 46318050 M51.36 Lumbar radiculopathy 128 773967 M54.16 Lumbosacra l spondylosis without myelopathy 53590052 M47.817 85463 Jagruti Elizabeth MD PAIN OFFICE [address] [place] [address] 10/23/2019 13:52:47 10/23/2019 14:42:33 Lumbosacral spondylosis without myelopathy 40199840 M47.817 Lumbar radiculopathy 128 722638 M54.16 Degenerati on of lumbar intervertebral disc 96379097 M51.36 73273 Jagruti Elizabeth MD PAIN OFFICE [address] [place] [address] 06/30/2020 08:32:55 06/30/2020 08:45:50 Lumbosacral spondylosis without myelopathy 04856691 M47.817 Lumbar radiculopathy 128 427083 M54.16 Degenerati on of lumbar intervertebral disc 17183170 M51.36 19030 Jagruti Elizabeth MD PAIN OFFICE [address] [place] [address] 07/21/2020 15:28:07 07/21/2020 15:57:40 Lumbosacral spondylosis without myelopathy 94073173 M47.817 Lumbar radiculopathy 128 986802 M54.16 Degenerati on of lumbar intervertebral disc 46276130 M51.36 05148 Jagruti Elizabeth MD PAIN OFFICE [address] [place] [address] 08/17/2020 09:19:36 08/17/2020 09:24:43 Lumbosacral spondylosis without myelopathy 08637776 M47.817 Lumbar radiculopathy 128 107376 M54.16 Degenerati on of lumbar intervertebral disc 47535800 M51.36 63550 Jagruti Elizabeth MD [facility] [address] [place] [address] 12/28/2020 15:16:05 12/29/2020 08:21:36 Muscle pain 42442111 M79.18 71539 Jagruti Elizabeth MD [facility] PAIN OFF[facility] [address] [place] [address] 06/29/2021 10:22:54 06/29/2021 13:59:36 Lumbosacral spondylosis without myelopathy 43303240 M47.817 Lumbar radiculopathy 128 931867 M54.16 Degenerati on of lumbar intervertebral disc 59924662 M51.36 88630 Jagruti Elizabeth MD PAIN OFFICE [address] [place] [address] 08/09/2021 11:55:52 08/09/2021 13:16:05 Lumbosacral spondylosis without myelopathy 23183629 M47.817 Lumbar radiculopathy 128 223458 M54.16 Degenerati on of lumbar intervertebral disc 93642296 M51.36 59116 Jagruti Elizabeth MD [facility] PA[facility] [address] [place] [address] 01/12/2022 13:35:53 01/15/2022 10:59:14 Inflammation of joint of shoulder region 472237386 M13.819 Subacromia l bursitis of left shoulder 4340323843 773383 M75.52 05522 Jagruti Elizabeth MD [facility] PAIN OFFICE [address] [place] [address] 01/24/2022 11:13:47 01/24/2022 16:09:39 Inflammation of joint of shoulder region 611543779 M13.819 Subacromia l bursitis of left shoulder 6917954485 338253 M75.52 Health Concerns Section Related Observation LastModified by Organization Detai ls LastModified Time None Recorded Concern Status LastModified by Organization Details LastModified Time None Recorded Advance Directives Directive None Recorded Payers Insurance Date Sequence Insurance Name Policy Number Policy Orta Covered Member ID Orta Member ID Guarantor Name 06/27/2022 1 [facility] Ya Cameron [id number] Ya Cameron 11/21/2022 2 [facility] [id number] Ya Cameron [id number] Ya Cameron 06/27/2022 1 [facility] Ya Cameron [id number] Ya Cameron 11/21/2022 1 [place] [employer] Ya Cameron [id number] Ya Cameron Notes Date Note Type Note [...] bladder or bowel incontinence.She was seen at [facility] and had imaging done. Results are not available today. Jagruti Elizabeth MD [address] [facility] , [address], [place], [address], [facility] 12/30/2020 08:57:28 06/29/2021 text/html She is here for a lumbar epidural steroid injection under fluoroscopic guidance. She had a fall in [facility] and has been having an exacerbation of her pain. She was seen at [facility]. No recent X-rays. Jagruti Elizabeth MD [address] [facility] , [address], [place], [address], [facility] 06/30/2021 08:52:14 08/09/2021 text/html This is a follow up after a lumbar epidural steroid injection under fluoroscopic guidance. She reports 70-80% pain benefit which is ongoing. She has stiffness in the morning which improves with stretching. She is walking better . Jagruti Elizabeth MD [address], [place], [address], [facility] 08/11/2021 09:15:50 01/12/2022 text/html She is here for a follow up. She was last seen on 07/01 for a lumbar epidural steroid injection under fluoroscopic guidance. She reports good pain benefit. She is complaining of left shoulder pain . She has seen Dr. Rodriguez , orthopedic surgeon at [facility] for her pain. He recommend a left shoulder steroid injection under ultrasound guidance. She has been having shoulder pain for the past five years . She is having a difficult time lifting her arm over her head.MRI left shoulder shows mild supraspinatus tendonitis and minimal distal inferior spinatus calcific tendonitis. Mild glenohumeral arthritis. Jagruti Elizabeth MD [address], [place], [address], [facility] 01/15/2022 11:05:58 01/24/2022 text/html She is here for a left shoulder steroid injection under ultrasound guidance Jagruti Elizabeth MD [address], [place], [address], [facility] 01/24/2022 16:37:45 OBGyn Episode No OBEpisode recorded.
--- NOTE | 2025-06-17 21:52 | PC.NURSE ---
Patient ambulated into ED room 23 from waiting room w/ slow steady gait. alert and oriented. skin pale, warm, dry, resp even and non labored. speaking in full, clear sentences. Patient reports she has been feeling unwell x 1 week with upper respiratory symptoms. patient states that today she started with intermittent heart palpitations, lasting approximately 3 minutes at time accompanied with hot flashes/diaphoresis. patient states she had a syncopal episode at home around 1400 today while sitting on her couch,denies falling or head strike, patient was home alone at this time. hx of PE and DVT, on eliquis- states she has been taking her meds as prescribed. quality assurance monitor final applied, IV established, lungs CTA, denies issues with bladder or bowels. awaiting ED provider.
[2025-06-17 23:26] LABS: Troponin-I High Sensitivity < 2.7 ng/L (<3.5-17.0)
--- NOTE | 2025-06-17 23:30 | PC.NURSE ---
patient medicated per NOV for 04/20 headache. reports that she continues with intermittent palpitations. NSR via tele
[2025-06-18 00:15] VITALS: BP 144/75; PULSE 71; RESP 16; TEMP 37; O2SAT 95
[2025-06-18 00:35] VITALS: BP 144/75; PULSE 71; RESP 16; TEMP 37; O2SAT 95
== END 2025-06-18 00:36 | disposition home or self-care (01) ==
PROVIDERS: Physician Assistant; Emergency Provider Emergency Medicine; PCP Internal Medicine
DX: R55 Syncope and collapse (principal); E11.9 Type 2 diabetes mellitus without complications; I10 Essential (primary) hypertension; Z86.718 Personal history of other venous thrombosis and embolism; Z79.01 Long term (current) use of anticoagulants; Z79.899 Other long term (current) drug therapy
CPT/HCPCS: 36415; 71046; 80053; 82947; 83735; 83880; 84484; 85025; 85379; 85610; 85730; 87502; 87635; 87651; 93005; 99283; 99285

== ENCOUNTER → 2025-06-17 17:13 | Outpatient (BNV) | payer MEDICARE, OTHER, SELFPAY | PROVIDERS: Emergency Provider Emergency Medicine; PCP Internal Medicine; Visit Provider Internal Medicine Cardiovascular Disease | DX: I25.2 Old myocardial infarction (principal); I49.3 Ventricular premature depolarization | CPT/HCPCS: 93010 ==

== ENCOUNTER → 2025-06-17 17:45 | Outpatient (BNV) | payer MEDICARE, OTHER, SELFPAY | PROVIDERS: PCP Internal Medicine; Visit Provider Radiology Diagnostic Radiology | DX: R05.9 Cough, unspecified (principal) | CPT/HCPCS: 71046 ==

== ENCOUNTER 2025-06-24 15:21 | Outpatient (AMB) | payer MEDICARE, OTHER, SELFPAY ==
--- NOTE | 2025-06-24 15:27 | A.OFFPC_ITS ---
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 Allergies capsaicin Adverse Reaction (Intermediate, Verified 06/24/25 15:51) Rash Iodinated Contrast Media (IV Contrast Dye) Adverse Reaction (Intermediate, Verified 06/24/25 15:51) Rash perflutren (From [employer]) Adverse Reaction (Intermediate, Verified 06/24/25 15:51) Rash Medication List - Last Reconciled 06/24/25 by Flakita Calero MD amlodipine 5 mg PO QAM apixaban (Eliquis) 5 mg PO BID atorvastatin 40 mg PO BEDTIME buspirone 5 mg PO BID cetirizine 10 mg PO QAM cyanocobalamin (vitamin B-12) (Vitamin B-12) 1,000 mcg PO DAILY fluoxetine 40 mg PO QAM metformin 500 mg PO BEDTIME omeprazole 40 mg PO BEDTIME ondansetron HCl 4 mg PO Q8H PRN tolterodine ER 4 mg PO BEDTIME trazodone 100 mg PO BEDTIME Tobacco use date assessed: 06/24/25 Fall risk assessment: No Falls in past year Last assessed Fall Risk: 06/24/25 Dental Screening Dental Screen Date: 06/24/25 Did you have a dental visit in the last 12 months?: No Did you have a dental problem in the last 6 months where you did not have access to dental care?: No Was dental information given to patient?: Patient declined [facility]-palpitations HPI Details 65-year-old female with a past medical h istory significant for DVT on Eliquis, diabetes, GERD, hypertension, anxiety presents follow-up after recent ER 06/17/2025 visit where she was seen for reported syncopal attack. She states that it initially started with episodes of palpitations and thinks that she might have passed out on the couch as she woke up slumped over with her head on the couch. Woke up with a headache and some mild chest pressure, not accompanied by any lightheadedness, shortness of breath. Her CBC, basic metabolic panel, renal function obtained at the ER was within normal limits. Random blood sugar was elevated at 219 mg per dL. Troponin was negative, urinalysis showed presence of urinary tract infection She has seen cardiology in the past for syncope and was told that it was ?vasovagal syncope. ? No further episodes since ER visit. 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 Prolapse of female pelvic organs Prepatellar bursitis Generalized anxiety disorder COPD (chronic obstructive pulmonary disease) Depression, major, recurrent, in complete remission Herpes zoster Left shoulder tendinitis GERD (gastroesophageal reflux disease) Calcaneal spur of left foot Arthritis of first metatarsophalangeal (MTP) joint of left foot Deviated nasal septum History of pulmonary embolism Essential hypertension Dyslipidemia Surgical History History of esophagogastroduodenoscopy (EGD) H/O colonoscopy Hx of blepharoplasty Status post open reduction and internal fixation (ORIF) of fracture (~09/16/23) History of fusion of cervical spine Hx of left breast biopsy History of partial thyroidectomy History of shoulder surgery History of tubal ligation Family History Father Alcoholism Mother HTN (hypertension) Hyperlipidemia CVD (cardiovascular disease) Sister Hyperlipidemia Alcoholism Substance use disorder Brother No problems noted. Sister No problems noted. Sister No problems noted. Sister No problems noted. Daughter No problems noted. Daughter No problems noted. 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 Social History Household Members: Significant Other Household Members Other:: 2 Housing: Apartment Are you a primary pet caregiver to a significant other at home: No Do you presently have visiting nurse or other home services: No Alcohol intake: current Alcohol intake frequency: holidays/special occasions only Patient Tobacco Use Status: Former Tobacco user Tobacco use type: Cigarette Years Smoked: 20 e-Cigarette/Vaping Use: Never Used Second Hand Smoke Exposure: No Advance Directives Date on File: 11/08/22 service: No Current occupational status: disabled Cognitive needs: No Hearing needs: No Vision needs: Yes Questionnaire PHQ-9 Over the last 2 weeks, how often have you been bothered by any of the following problems? 1. Little interest or pleasure in doing things: not at all 2. Feeling down, depressed, or hopeless: not at all 3. Trouble falling or staying asleep, or sleeping too much: not at all 4. Feeling tired or having little energy: not at all 5. Poor appetite or overeating: not at all 6. Feeling bad about yourself - or that you are a failure or have let yourself or your family down: not at all 7. Trouble concentrating on things, such as reading the newspaper or watching television: not at all 8. Moving or speaking so slowly that other people could have noticed. Or the opposite - being so fidgety or restless that you have been moving around a lot more than usual: not at all 9. Thoughts that you would be better off or of hurting yourself in some way: not at all Total score: 0 Depression Screening Interpretation: Negative Depression Screening Done: Yes 48132 - PHQ-9 Billing: Yes Source: Developed by Drs. Jose Etienne, Luz Falcon, Henrik Hernandez and colleagues, with an educational miesha from [employer]. Thrive Questionnaire Date Thrive assessed: 06/24/25 I am a: Patient What is your living situation today?: I have a steady place to live Within the past 12 months, did the food you bought not last and you didn't have the money to get more?: I choose not to answer this question Within the past 12 months, did you worry whether your food would run out before you got money to buy more?: I choose not to answer this question Do you have trouble paying for medicines?: No Do you have trouble getting transportation to medical appointments?: No Do you have trouble paying your heating and electricity bill?: No Do you have trouble taking care of your child, family member or friend?: No Do you have trouble with day-to-day activities such as bathing, preparing meals, shopping, managing finances, etc.?: No Are you currently unemployed and looking for a job?: Yes Are you interested in more education?: No Please select the resources that you would like help with: None Currently or been in a relationship where the following occur: No concerns repor arsen THRIVE Score: 0 AUDIT C Alcohol Use Questionnaire (AUDIT-C) 1. How often do you have a drink containing alcohol?: Monthly or less 2. How many drinks containing alcohol do you have on a typical day when you are drinking?: 1 or 2 3. How often do you have six or more drinks on one occasion?: Never Total Score: 1 Score Reviewed/Action Taken: Yes MARY-7 AMB Questionnaire MARY-7 Date MARY - 7 assessed: 06/24/25 Feeling nervous, anxious, or on edge: 0 = Not at all Not being able to stop or control worryin = Not at all Worrying too much about different things: 0 = Not at all Trouble relaxin = Not at all Being so restless that it is hard to sit still: 0 = Not at all Becoming easily annoyed or irritable: 0 = Not at all Feeling afraid as if something awful might happen: 0 = Not at all Total MARY-7 score (0-4 normal; 5-9 mild; 10-14 moderate; 15-21 severe): 0 Source: Developed by Drs. Jose Etienne, Luz Falcon, Henrik Hernandez and colleagues, with an educational miesha from [employer]. MARY-7 Assessment Billing MARY-7 Assessment Tool: MARY-7 Assessment 03772 Physical exam (Primary Care) Vital Signs: Last Vital Signs Temp 98.3 F 06/24/25 15:33 Pulse 97 06/24/25 15:33 Resp 16 06/24/25 15:33 BP 110/60 06/24/25 15:33 Pulse Ox 95 06/24/25 15:33 Oxygen Delivery Method Room Air 06/24/25 15:33 BMI result Body Mass Index 38.0 Tobacco/Smoking Status: Tobacco use Status Tobacco use date assessed 06/24/25 06/24/25 15:31 Patient Tobacco Use Status Former Tobacco user 06/24/25 15:31 Tobacco use type Cigarette 06/24/25 15:31 e-Cigarette/Vaping Use Never Used 06/24/25 15:31 PHQ-9: PHQ-9 Score PHQ-9: Total score 0 06/24/25 15:31 Depression Screening Interpretation: Negative Thrive Assessment: Date of Thrive Assessment Date Thrive assessed 06/24/25 06/24/25 15:31 Currently or been in a relationship where the following occur: No concerns reported Results AMB Urinalysis, Automated UA Leukoctes 0 Nicolas/uL Last Edit by Jadyn Walker, [facility] on 06/24/25 16:07 UA Nitrite Positive Last Edit by Jadyn Walker, [facility] on 06/24/25 16:07 UA Urobilinogen 0.2 mg/dL Last Edit by Jadyn Walker, [facility] on 06/24/25 16:07 UA Protein 0 mg/dL Last Edit by Jadyn Walker, [facility] on 06/24/25 16:07 UA pH 6.0 Last Edit by Jadyn Walker, [facility] on 06/24/25 16:07 UA Blood 80 Jamey/uL Last Edit by Jadyn Walker, [facility] on 06/24/25 16:07 UA Specific [place] 1.030 Last Edit by Jadyn Walker, [facility] on 06/24/25 16:07 UA Ketone Positive Last Edit by Jadyn Walker, [facility] on 06/24/25 16:07 UA Bilirubin 1 mg/dL Last Edit by Jadyn Walker, [facility] on 06/24/25 16:07 UA Glucose 500 mg/dL Last Edit by Jadyn Walker, [facility] on 06/24/25 16:07 Coding Diagnoses Abnormal urinalysis R82.90 Dyslipidemia E78.5 Type 2 diabetes mellitus with hyperglycemia, without long-term current use of insulin E11.65 Additional Codes MARY-7 Assessment Billing - MARY-7 Assessment Tool: MARY-7 Assessment [id number] ([id number]) PHQ-9 - 23847 - PHQ-9 Billing: Yes ([id number]) Assessment & Plan Assessment & Plan (1) Abnormal urinalysis: Code(s): R82.90 - Unspecified abnormal findings in urine (2) Dyslipidemia: Code(s): E78.5 - Hyperlipidemia, unspecified Category: Medical (3) Type 2 diabetes mellitus with hyperglycemia, without long-term current use of insulin: Code(s): E11.65 - Type 2 diabetes mellitus with hyperglycemia Category: Medical Orders: Orders AMB Urinalysis Automated Today Z13.9 - Encounter for screening, unspecified Hemoglobin A1c Today E11.65 - Type 2 diabetes mellitus with hyperglycemia, E78.5 - Hyperlipidemia, unspecified, Z78.0 - Asymptomatic menopausal state Vitamin D 25-OH Total Today E11.65 - Type 2 diabetes mellitus with hyperglycemia, E78.5 - Hyperlipidemia, unspecified, Z78.0 - Asymptomatic menopausal state Urine Culture Today R82.90 - Unspecified abnormal findings in urine Lipid Panel Today E11.65 - Type 2 diabetes mellitus with hyperglycemia, E78.5 - Hyperlipidemia, unspecified, Z78.0 - Asymptomatic menopausal state
[2025-06-24 15:33] VITALS: BP 110/60; PULSE 97; RESP 16; TEMP 36.8; O2SAT 95; BMI 38.0
--- OUTSIDE RECORDS SUMMARY | 2025-06-24 18:10 | XMS_ITS | Data Portability ---
Author Organization [facility] Address [address] [facility] [address] [place] [address] Care Team Providers Care Senior Hr Business Partner Name Role Phone LIZ LOPEZ Primary Care [...] results of the imaging studies done at [facility]. [email or web address] Not available 12/29/2020 08:21:00 06/29/2021 [...] made for the same. 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 She [...] By Organization Details Last Modified Time 12/28/2020 [id number] Telehealth visit: The patient was located at home for this telephone electronic visit and gave consent for this visit to be conducted via telehealth. 15 minutes was spent on this call and greater than 50% of the visit was spent on counseling and coordination of care [email or web address] Not available 12/29/2020 08:16:48 06/29/2021 [id number] She was advised against bed rest lasting longer than four days and to continue activities as tolerated. [email or web address] Not available 06/29/2021 13:50:55 08/09/2021 [id number] She was advised against bed rest lasting [...] care. [email or web address] Not available 08/09/2021 11:56:59 01/12/2022 [id number] She was advised against bed rest lasting longer than four days and to continue activities as tolerated. [email or web address] Not available 01/15/2022 10:55:55 01/24/2022 [id number] She was advised against bed rest lasting longer than four days and to continue activities as tolerated. [email or web address] Not available 01/24/2022 16:06:51 Reason for Referral None Reported. Problems Name Problem SNOMED Code Status Onset Date Resolution Date Notes Provider Name and Address Organization Details Recorded Time Degeneration of lumbar intervertebral disc [id number] Geovanna farfan MD [address] [facility] , [address], [place], [address], [place] [facility] 11:51:41 Lumbar radiculopathy 045517833 Geovanna farfan MD [address] , [address], [facility] [place] [place], [address], [place] [facility] 9 11:53:15 Lumbosacral spondylosis without myelopathy 65348774 Active Jagruti farfan MD [address] [facility] , [address], [place], [address], [place] [facility] 9 11:53:34 Degeneration of cervical intervertebral disc 73958205 Active Jagruti farfan MD [address] [facility] , [address], [place], [address], [place] [facility] 09:02:31 Muscle pain 42518780 Active Jagruti farfan MD [address] [facility] , [address], [place], [address], [place] [facility] 09:02:41 Problem Notes None recorded. Procedures Surgical History Date Name Laterality Status Provider Name and Address Organization Details Recorded Time 01/25/20 22 Intra-articular shoulder steroid injection under ultrasound guidance completed Jagruti Elizabeth MD [address] [facility] , [address], [place], [address], [place] [facility] 01/24/2022 16:06:02 06/29/20 21 Lumbar Epidural steroid injection under fluoroscopic guidance completed Jagruti Elizabeth MD [address] [facility] , [address], [place], [address], [place] [facility] 06/29/2021 13:51:52 07/21/20 20 Lumbar Epidural steroid injection under fluoroscopic guidance completed Jagruti Elizabeth MD [address] [facility] , [address], [place], [address], [place] [facility] 07/21/2020 15:54:12 10/23/19 20 Lumbar Epidural steroid injection under fluoroscopic guidance completed Jagruti Elizabeth MD [address] [facility] , [address], [place], [address], [place] [facility] 10/23/2019 14:39:47 05/30/20 19 Trigger Point Injections under ultrasound guidance completed Jagruti Elizabeth MD [address] , [address], [place], [address], [place] [facility] 05/30/2019 13:31:49 05/15/20 19 Trigger Point Injections under ultrasound guidance completed Jagruti Elizabeth MD [address] [facility] , [address], [place], [address], [place] [facility] 05/15/2019 14:15:41 04/02/20 19 Lumbar Epidural steroid injection under fluoroscopic guidance completed Jagruti Elizabeth MD [address] [facility] , [address], [place], [address], [place] [facility] 04/03/2019 08:35:11 10/09/19 19 Lumbar Epidural steroid injection under fluoroscopic guidance completed Jagruti Elizabeth MD [address] [facility] , [address], [place], [address], [place] [facility] 10/09/2018 [...] Name and Address Organization Details Recorded Time 06408 Iodinated contrast media (substanc e) medicatio n rash Not available Not available 09/14/2018 34736 2004 SNOMED < great er 21 years [...] Updated DateTime 2 157.48 cm 36.4 kg/m2 74789.8 8 g 80 /min 94 % 94 % 10 162/81 mm[Hg] Jagruti farfan MD [address] , [address], [place], [address], [place] [facility] 2 11:23:01 Date Recorded Body height Body mass index (BMI) Body weight Heart rate Oxygen saturation Oxygen saturation in Arterial blood by Pulse oximetry Systolic And Diastolic Provider Name and Address Organization Details Last Updated DateTime 1 157.48 cm 36.4 kg/m2 22650.8 8 g 84 /min 96 % 96 % 121/75 mm[Hg] Eden Mcmullen [place] - [facility] 1 10:30:30 Date Recorded Body height Provider Name an d Address Organization Details Last Updated DateTime 08/09/2021 157.48 cm Jagruti Elizabeth MD [address] , [address], [place], [address], [place] [facility] 08/09/2021 11:57:31 Social History Question Answer Notes LastModified by Organizat ion Details LastModified Time Tobacco Smoking Status Former Smoker quit x 12 years [facility] Available [facility] 06/26/2020 03:16:11 Which Illicit Or Recreational Drugs Have You Used? No [id number] Information not available 06/26/2020 Education 12 Information no t available 09/14/2018 Live Alone Or With Others? With Others Information not available 09/14/2018 Marital Status Informatio n not available 09/14/2018 What Was The Date Of Your Most Recent Tobacco Screening? 03/27/2019 [id number] Information not available 06/26/2020 How Many Years Have You Smoked Tobacco? 20 [id number] Information not available 06/26/2020 Sex: Unknown Functional Status Question Answer Note LastModified by Organizat ion Details LastModified Time What is your level of alcohol consumption? Occasional [id number] Information not available 06/26/2020 Are you currently employed? No [id number] Information not available 06/26/2020 What is your occupation? Disability Information not available 09/14/2018 Mental Status None recorded. Family History Relationship Description Onset Age of this Age Resolved Age Notes LastModified by Organization Details LastModified Time Father No current problems or disability Not available 09/14 09:35:50 Mother No current problems or disability Not available 09/14 09:35:50 Medical History Condition Response Diabetes Y Arthritis Y High Cholesterol Y GERD/Reflux Y Cancer Y Hypertension Y Depression Y Gynecological HistoryNo gynecological history recorded. Obstetrics History GPAL:G 0 P 0 0 0 0 Past Encounters Encounter ID Performer Location Encounter Start Date Encounter Closed Date Diagnosis/Indication Diagnosis SNOMED-CT Code Diagnosis ICD10 Code Diagnosis IMO Codes Diagnosis Note [id number] Jagruti Elizabeth MD PAIN OFFICE [address] [place] [address] 09/14/2018 09:20:14 09/14/2018 12:05:18 Lumbosacral spondylosis without myelopathy 91407465 M47.817 Lumbar radiculopathy 128 919854 M54.16 Degenerati on of lumbar intervertebral disc 63363013 M51.36 [id number] Jagruti Elizabeth MD PAIN OFFICE [address] [place] [address] 10/09/2018 08:54:37 10/09/2018 10:59:45 Lumbosacral spondylosis without myelopathy 43670417 M47.817 Lumbar radiculopathy 128 436306 M54.16 Degenerati on of lumbar intervertebral disc 74157496 M51.36 [id number] Jagruti Elizabeth MD PAIN OFFICE [address] [place] [address] 11/08/2018 08:45:11 11/08/2018 11:03:12 Lumbosacral spondylosis without myelopathy 37536883 M47.817 Lumbar radiculopathy 128 811250 M54.16 Degenerati on of lumbar intervertebral disc 40057582 M51.36 [id number] Jagruti Elizabeth MD PAIN OFFICE [address] [place] [address] 03/26/2019 13:44:21 03/27/2019 16:06:04 Lumbosacral spondylosis without myelopathy 54033424 M47.817 Lumbar radiculopathy 128 434575 M54.16 Degenerati on of lumbar intervertebral disc 93842072 M51.36 [id number] Jagruti Elizabeth MD PAIN OFFICE [address] [employer] [address] [place] [address] 04/02/2019 14:22:38 04/03/2019 11:57:34 Lumbosacral spondylosis without myelopathy 64651689 M47.817 Lumbar radiculopathy 128 478513 M54.16 Degenerati on of lumbar intervertebral disc 26337397 M51.36 [id number] Jagruti Elizabeth MD PAIN OFFICE [address] [employer] [address] [place] [address] 05/06/2019 10:21:08 05/15/2019 11:02:55 Degeneration of cervical intervertebral disc 76992604 M50.30 Muscle pain 93961948 M79 .18 Degenerati on of lumbar intervertebral disc 55334665 M51.36 Lumbar radiculopathy 128 738448 M54.16 Lumbosacra l spondylosis without myelopathy 02519320 M47.817 [id number] Jagruti Elizabeth MD PAIN OFFICE [address] [address] [place] [address] 05/15/2019 13:13:23 05/15/2019 14:18:15 Degeneration of cervical intervertebral disc 86462914 M50.30 Muscle pain 52817038 M79 .18 Degenerati on of lumbar intervertebral disc 54947561 M51.36 Lumbar radiculopathy 128 227299 M54.16 Lumbosacra l spondylosis without myelopathy 48992490 M47.817 [id number] Jagruti Elizabeth MD PAIN OFFICE [address] [employer] [address] [place] [address] 05/30/2019 12:55:57 05/30/2019 13:33:51 Degeneration of cervical intervertebral disc 20443641 M50.30 Muscle pain 64905342 M79 .18 Degenerati on of lumbar intervertebral disc 38515804 M51.36 Lumbar radiculopathy 128 410919 M54.16 Lumbosacra l spondylosis without myelopathy 90026660 M47.817 [id number] Jagruti Elizabeth MD PAIN OFFICE [address] [place] [address] 06/12/2019 11:37:11 06/24/2019 16:57:19 Degeneration of cervical intervertebral disc 79361533 M50.30 Muscle pain 57226568 M79 .18 Degenerati on of lumbar intervertebral disc 27520536 M51.36 Lumbar radiculopathy 128 256894 M54.16 Lumbosacra l spondylosis without myelopathy 17039040 M47.817 [id number] Jagruti Elizabeth MD PAIN OFFICE [address] [place] [address] 10/23/2019 13:52:47 10/23/2019 14:42:33 Lumbosacral spondylosis without myelopathy 64927638 M47.817 Lumbar radiculopathy 128 919311 M54.16 Degenerati on of lumbar intervertebral disc 30861056 M51.36 [id number] Jagruti Elizabeth MD PAIN OFFICE [address] [place] [address] 06/30/2020 08:32:55 06/30/2020 08:45:50 Lumbosacral spondylosis without myelopathy 66207357 M47.817 Lumbar radiculopathy 128 947228 M54.16 Degenerati on of lumbar intervertebral disc 85275446 M51.36 [id number] Jagruti Elizabeth MD PAIN OFFICE [address] [place] [address] 07/21/2020 15:28:07 07/21/2020 15:57:40 Lumbosacral spondylosis without myelopathy 59266739 M47.817 Lumbar radiculopathy 128 440803 M54.16 Degenerati on of lumbar intervertebral disc 40656439 M51.36 [id number] Jagruti Elizabeth MD PAIN OFFICE [address] [place] [address] 08/17/2020 09:19:36 08/17/2020 09:24:43 Lumbosacral spondylosis without myelopathy 16622870 M47.817 Lumbar radiculopathy 128 219340 M54.16 Degenerati on of lumbar intervertebral disc 22726559 M51.36 [id number] Jagruti Elizabeth MD [facility] PAIN OFFICE [address] [place] [address] 12/28/2020 15:16:05 12/29/2020 08:21:36 Muscle pain 21702234 M79.18 [id number] Jagruti Elizabeth MD [facility] PAIN OFFICE [address] [employer] [employer] [address] [place] [address] 06/29/2021 10:22:54 06/29/2021 13:59:36 Lumbosacral spondylosis without myelopathy 72139851 M47.817 Lumbar radiculopathy 128 520669 M54.16 Degenerati on of lumbar intervertebral disc 47008402 M51.36 [id number] Jagruti Elizabeth MD PAIN OFFICE [address] [place] [address] 08/09/2021 11:55:52 08/09/2021 13:16:05 Lumbosacral spondylosis without myelopathy 96762123 M47.817 Lumbar radiculopathy 128 118031 M54.16 Degenerati on of lumbar intervertebral disc 93878610 M51.36 [id number] Jagruti Elizabeth MD [facility] PAIN OFFICE [address] [place] [address] 01/12/2022 13:35:53 01/15/2022 10:59:14 Inflammation of joint of shoulder region 762194715 M13.819 Subacromia l bursitis of left shoulder 7907370049 371068 M75.52 [id number] Jagruti Elizabeth MD [facility] PAIN OFFICE [address] [place] [address] 01/24/2022 11:13:47 01/24/2022 16:09:39 Inflammation of joint of shoulder region 051323694 M13.819 Subacromia l bursitis of left shoulder 4592302410 708839 M75.52 Health Concerns Section Related Observation LastModified by Organization Detai ls LastModified Time None Recorded Concern Status LastModified by Organization Details LastModified Time None Recorded Advance Directives Directive None Recorded Payers Insurance Date Sequence Insurance Name Policy Number Policy Orta Covered Member ID Orta Member ID Guarantor Name 06/27/2022 1 [facility] Ya Cameron [id number] Ya Cameron 11/21/2022 2 [facility] [id number] Ya Cameron [id number] Ya Cameron 06/27/2022 1 [facility] Ya Cameron [id number] Ya Cameron 11/21/2022 1 [place] [employer] Ya Cameron [id number] Ya Cameron Notes Date Note Type Note [...] bladder or bowel incontinence.She was seen at [facility] and had imaging done. Results are not available today. Jagruti Elizabeth MD [address] [facility] , [address], [place], [address], [facility] 12/30/2020 08:57:28 06/29/2021 text/html She is here for a lumbar epidural steroid injection under fluoroscopic guidance. She had a fall in [facility] and has been having an exacerbation of her pain. She was seen at [facility]. No recent X-rays. Jagruti Elizabeth MD [address] [facility] , [address], [place], [address], [facility] 06/30/2021 08:52:14 08/09/2021 text/html This is a follow up after a lumbar epidural steroid injection under fluoroscopic guidance. She reports 70-80% pain benefit which is ongoing. She has stiffness in the morning which improves with stretching. She is walking better . Jagruti Elizabeth MD [address] [facility] , [address], [place], [address], [facility] 08/11/2021 09:15:50 01/12/2022 text/html She is here for a follow up. She was last seen on 07/01 for a lumbar epidural steroid injection under fluoroscopic guidance. She reports good pain benefit. She is complaining of left shoulder pain . She has seen Dr. Rodriguez , orthopedic surgeon at [facility] for her pain. He recommend a left shoulder steroid injection under ultrasound guidance. She has been having shoulder pain for the past five years . She is having a difficult time lifting her arm over her head.MRI left shoulder shows mild supraspinatus tendonitis and minimal distal inferior spinatus calcific tendonitis. Mild glenohumeral arthritis. Jagruti Elizabeth MD [address] [facility] , [address], [place], [address], [facility] Pain Management 01/15/2022 11:05:58 01/24/2022 text/html She is here for a left shoulder steroid injection under ultrasound guidance Jagruti Elizabeth MD [address] [facility] , [address], [place], [address], [facility] Management 01/24/2022 16:37:45 OBGyn Episode No OBEpisode recorded.
--- OUTSIDE RECORDS SUMMARY | 2025-06-24 18:10 | XMS_ITS | Clinical Summary ---
Author Organization [facility] Address [address] [place] [address] Care Team Providers Care Career Services Representative Name Role Phone Flakita Calero MD Primary Care Provider [phone] Allergies Active Allergy Reactions Criticality Noted Date [...] age to complete this topic Care Teams Career Services Representative Relationship Specialty Start Date End Date Flakita Calero MD [address] [facility] [place] [id number] PCP - General Internal Medicine 10/27/17
--- OUTSIDE RECORDS SUMMARY | 2025-06-24 18:10 | XMS_ITS | Clinical Summary ---
Author Organization [facility] Address [address] [place] [address] Care Team Providers Care Pari Mutual Ticket Checker Name Role Phone Flakita Calero MD Primary [...] age to complete this topic Care Teams Pari Mutual Ticket Checker Relationship Specialty Start Date End Date Flakita Calero MD [address] [place] [address] PCP - General 02/15/08
--- OUTSIDE RECORDS SUMMARY | 2025-06-24 18:10 | XMS_ITS | Data Portability ---
Author Organization [place] [facility] Address [address] [place] [address] Care Team Providers Care Mold Maker Plaster Name Role Phone LIZ LOPEZ Primary Care [...] Left Knee Pain 2022 023 [facility], [address], [place], [address], 3 15:18:58 XR, knee, 1 or 2 view - Right Knee Pain 2022 023 [facility], [address], [place], [address], 3 15:18:58 XR, knee, weightbeari ng - Bilateral Knee Pain 2022 023 [facility], [address], [place], [address], 3 15:18:58 Medication Orders Kenalog 40 mg/mL suspension for injection 2022 023 [facility], [address] [place] [address], [address], 08:52:19 lidocaine (PF) 10 mg/mL (1 %) injection solution 2022 023 [place] [address] [facility], [address] [place] [address], [address], 08:52:23 Bactrim DS 800 mg-160 mg tablet 2022 023 [place] [address] [facility], [address] [place] [address], [address], 08:52:34 lidocaine (PF) 10 mg/mL (1 %) injection solution 2022 023 [place] [address] [facility], [address] [place] [address], [address], 08:52:23 Patient TargetsNo targets recorded. Patient Instructions Encounter Date Encounter Id Patient Instructions Last Modified By Organization Details Last Modified Time 04/27/2023 [id number] X-rays of both knees reveal overall well-maintained joint space with mild degenerative change without acute bony abnormality. Normal bone mineralization no obvious soft tissue findings are observed. Not available 04/28/2023 08:16:44 05/11/2023 [id number] You have been provided with a cortisone [...] Recorded Time Arthritis of right knee joint 04456275665 89797 Active 2017 Arthritis of right knee Not Available [facility] 5 23:03:55 Subacromi al bursitis of left shoulder 48471200372 82925 Active 2019 Subacromi al bursitis of left shoulder joint Not Available [facility] 5 23:03:56 Impingeme nt syndrome of left shoulder region 33049918359 9104 Active 2019 Impingeme nt syndrome of left shoulder region Not Available [facility] 5 23:03:56 Carpal tunnel syndrome of left wrist 82031741524 02 Active 2019 Left carpal tunnel syndrome Not Available [facility] 5 23:03:54 Carpal tunnel syndrome of right wrist 63874439384 9108 Active 2019 Right carpal tunnel syndrome Not Available [facility] 5 23:03:55 Cervical radiculop athy 41917326 Active 2019 Possible cervical radiculop athy Not Available [facility] 5 23:03:56 Bilateral carpal tunnel syndrome 10386066392 950856 Active 2019 Possible bilateral carpal tunnel syndrome Not Available [facility] 5 23:03:55 Prepatell ar bursitis of left knee 58731006782 9103 Active 2022 VIOLETTE CORRALES PA-C [address], [place], [address] , [place] [facility] 3 14:06:33 Osteoarth ritis of left knee joint 67561932812 9109 Active 2022 VIOLETTE CORRALES PA-C [address], [place], [address] , [place] [facility], P 3 10:10:06 Synovial cyst of right knee 55022822810 9104 Active 2022 VIOLETTE CORRALES PA-C [address], [place], [address] , [place] [facility], P 3 09:39:52 Problem Notes None recorded. Procedures Surgical History Date Name Laterality Status Provider Name and Address Organization Details Recorded Time 05/11/2023 Knee Joint/Burs a Asp & Inj completed VIOLETTE CORRALES PA-C [address], [place], [address], [place] [facility], P 05/11/2023 10:07:19 04/27/2023 Knee Joint/Burs a Asp & Inj completed VIOLETTE CORRALES PA-C [address], [place], [address], [place] [facility], P 04/28/2023 08:13:06 Knee arthroscop y/surgery completed [facility] 04/27/2023 13:25:28 Imaging Results None recorded. Procedure Notes None recorded. Medical Equipment None Reported. Allergies Allergen ID Allergen Name Allergen Category Reaction Reaction Severity Criticality Documentation Date Start Date Code Code System Note Provider Name and Address Organization Details Recorded Time 7279 Iodinated contrast media (substanc e) medicatio n Not available Not available Not available 04/27/2023 44483 2003 SNOMED [place] [facility], P 3 13:24:08 Medications Name Sig Start [...] Updated DateTime 04/27/2023 157.48 cm 36.4 kg/m2 42953.88 g [facility], 04/27/2023 13:24:24 Date Recorded Body height Provider Name an d Address Organization Details Last Updated DateTime 08/10/2023 157.48 cm [facility], 08/10/2023 08:53:04 Social History None recorded. [...] ICD10 Code Diagnosis IMO Codes Diagnosis Note [id number] [facility] [address] [address] 04/27/2023 12:51:19 04/27/2023 14:11:04 Pain of left knee joint 0576158909 85731 M25.562 Pain of ri ght knee joint 6328000153 02324 M25.561 Pain of bi lateral knee joints 3759104870 40355 M25.561 Prepatella r bursitis of left knee 2712918549 78750 M70.42 [id number] CURT CALHOUNfie ld [address] [facility] [address] [place] [address] 05/11/2023 09:12:00 05/11/2023 10:08:57 Osteoarthritis of left knee joint 0006880295 35061 M17.12 [id number] CURT CALHOUN [facility] 299 [facility] [address] [place] [address] 08/10/2023 08:41:03 08/10/2023 09:56:06 Synovial cyst of right knee 9277320626 68850 M71.21 Health Concerns Section Related Observation LastModified by Organization Detai ls LastModified Time None Recorded Concern Status LastModified by Organization Details LastModified Time None Recorded Advance Directives Directive None Recorded Payers Insurance Date Sequence Insurance Name Policy Number Policy Orta Covered Member ID Orta Member ID Guarantor Name 02/16/2024 1 [place]ICARE [place]: [employer] [facility] [id number] [facility] 04/05/2024 2 [facility] [id number] 2 [facility] [id number] [facility] Notes Date Note Type Note Provider Name [...] evaluation and treatment. VIOLETTE CORRALES PA-C [address], [address], [place] [facility], P 06/07/2023 13:07:40 05/11/2023 text/html Assessment & [...] going on vacation. VIOLETTE CORRALES PA-C [address], [address], [place] [facility], P 05/11/2023 10:11:00 08/10/2023 text/html 63-year-old female [...] shortness of breath. VIOLETTE CORRALES PA-C 299 [facility] [address], [place], [address], [place] [facility], P 08/10/2023 09:40:52 OBGyn Episode No OBEpisode recorded.
--- OUTSIDE RECORDS SUMMARY | 2025-06-24 18:10 | XMS_ITS | Patient Health Record ---
[facility] Address [address] [place] [address] Care Team Providers Care Threshing Operator Name Role Phone Abdias QUIROZ, Flakita Bowens Primary Care Provider Un available Elena Mejia Unavailable [phone] Allergies Allergen (clinical drug ingredient) Drug/Non Drug [...] Problem Type II diabetes mellitus without complication (647217110) Type 2 diabetes mellitus without complications (E11.9) Active confirmed Problem Localized, primary osteoarthritis of the ankle and/or foot (933062133) Osteoarthritis of left ankle and foot (M19.072) Active confirmed Plan Of Treatment Pending Test Test Name Order Date X ray : Foot, left 3V 07/07/2021 [id number] NAIL, 1-5 06/06/2016 21752-Ynflwfvd Plate 01/17/2017 87155-Gtkssdrc Plate 05/23/2016 [id number] 06/13/2017 77593- Debride <25 sq cm 07/21/2015 87595- Debride <25 sq cm 07/11/2017 61478- Debride <25 sq cm 07/25/2017 [id number] SKIN/TISSUE 06/27/2017 45749 I&D ABSCESS- SIMPLE,SINGLE 015 55921 I&D ABSCESS- SIMPLE,SINGLE 015 Insurance Providers Payer Name Payer Address Payer Phone Subscriber Number Group Number Insured Name Patient Relationship to Insured Coverage Start Date Coverage End Date Medicare National [employer] [address] [place] [address] [id number] Ya Cameron Self - patient is the insured [facility] [address] [place] [address] [id number] Ya Cameron Self - patient is the [...]
== END 2025-06-24 16:48 | disposition home or self-care (01) ==
LOC: HO.HMCC 15:21
PROVIDERS: PCP Internal Medicine; Visit Provider Internal Medicine
DX: Z13.9 Encounter for screening, unspecified (principal)

== ENCOUNTER 2025-06-24 15:21 | Outpatient (REF) | payer MEDICARE, OTHER, SELFPAY | END 2025-06-24 15:22 | disposition home or self-care (01) | LOC: HO.LAB 15:21 | PROVIDERS: PCP Internal Medicine; Visit Provider Internal Medicine | DX: K21.9 Gastro-esophageal reflux disease without esophagitis (principal); I10 Essential (primary) hypertension; F41.9 Anxiety disorder, unspecified; R82.90 Unspecified abnormal findings in urine; E78.5 Hyperlipidemia, unspecified; E11.65 Type 2 diabetes mellitus with hyperglycemia; Z87.898 Personal history of other specified conditions; Z86.718 Personal history of other venous thrombosis and embolism; Z79.01 Long term (current) use of anticoagulants; Z78.0 Asymptomatic menopausal state | CPT/HCPCS: 81003; 96127; 99212 ==

== ENCOUNTER 2025-06-25 07:07 | Outpatient (REF) | payer MEDICARE, OTHER, SELFPAY ==
--- OUTSIDE RECORDS SUMMARY | 2025-06-25 07:09 | XMS_ITS | Clinical Summary ---
Author Organization [facility] Address [address] [place] [address] Care Team Providers Care Pulmonary Physician Name Role Phone Flakita Calero MD Primary Care Provider [phone] Allergies Active Allergy Reactions Criticality Noted Date [...] age to complete this topic Care Teams Pulmonary Physician Relationship Specialty Start Date End Date Flakita Calero MD [address] [facility] [place] [id number] PCP - General Internal Medicine 10/27/17
--- OUTSIDE RECORDS SUMMARY | 2025-06-25 07:09 | XMS_ITS | Patient Health Record ---
[facility] Organization [facility] Address [address] [place] [address] Care Team Providers Care Meal Grinder Tender Name Role Phone Abdias QUIROZ, Flakita Bowens Primary Care Provider Un available Elena Mejia Unavailable [phone] Allergies Allergen (clinical drug ingredient) Drug/Non Drug [...] Problem Type II diabetes mellitus without complication (388088418) Type 2 diabetes mellitus without complications (E11.9) Active confirmed Problem Localized, primary osteoarthritis of the ankle and/or foot (739823349) Osteoarthritis of left ankle and foot (M19.072) Active confirmed Plan Of Treatment Pending Test Test Name Order Date X ray : Foot, left 3V 07/07/2021 [id number] NAIL, 1-5 06/06/2016 97479-Tmhbhsbb Plate 01/17/2017 90132-Lhgzbynm Plate 05/23/2016 67734-MEY 06/13/2017 35264- Debride <25 sq cm 07/21/2015 21699- Debride <25 sq cm 07/11/2017 53896- Debride <25 sq cm 07/25/2017 [id number] SKIN/TISSUE 06/27/2017 92274 I&D ABSCESS- SIMPLE,SINGLE 015 98541 I&D ABSCESS- SIMPLE,SINGLE 015 Insurance Providers Payer Name Payer Address Payer Phone Subscriber Number Group Number Insured Name Patient Relationship to Insured Coverage Start Date Coverage End Date Medicare National [employer] [address] [place] [address] [id number] Ya Cameron Self - patient is the insured [facility] [address] [place] [address] [id number] Ya Cameron Self - patient is the [...]
--- OUTSIDE RECORDS SUMMARY | 2025-06-25 07:09 | XMS_ITS | Data Portability ---
Author Organization [place] [facility] [place] Address [address] [place] [address] Care Team Providers Care Direct Marketing Specialist Name Role Phone LIZ LOPEZ Primary Care [...] Left Knee Pain 2022 023 [facility], [address], [place], [address], 3 15:18:58 XR, knee, 1 or 2 view - Right Knee Pain 2022 023 [facility], [address], [place], [address], 3 15:18:58 XR, knee, weightbeari ng - Bilateral Knee Pain 2022 023 [facility], [address], [place], [address], 3 15:18:58 Medication Orders Kenalog 40 mg/mL suspension for injection 2022 023 [facility], [address] [place] [address], [address], 08:52:19 lidocaine (PF) 10 mg/mL (1 %) injection solution 2022 023 [place] [address] [facility], [address] [place] [address], [address], 08:52:23 Bactrim DS 800 mg-160 mg tablet 2022 023 [place] [address] [facility], [address] [place] [address], [address], 08:52:34 lidocaine (PF) 10 mg/mL (1 %) injection solution 2022 023 [place] [address] [facility], [address] [place] [address], [address], 08:52:23 Patient TargetsNo targets recorded. Patient Instructions Encounter Date Encounter Id Patient Instructions Last Modified By Organization Details Last Modified Time 04/27/2023 [id number] X-rays of both knees reveal overall well-maintained joint space with mild degenerative change without acute bony abnormality. Normal bone mineralization no obvious soft tissue findings are observed. Not available 04/28/2023 08:16:44 05/11/2023 [id number] You have been provided with a cortisone [...] Recorded Time Arthritis of right knee joint 00626606286 22873 Active 2017 Arthritis of right knee Not Available [facility] 5 23:03:55 Subacromi al bursitis of left shoulder 67688048962 12860 Active 2019 Subacromi al bursitis of left shoulder joint Not Available [facility] 5 23:03:56 Impingeme nt syndrome of left shoulder region 07841425185 9104 Active 2019 Impingeme nt syndrome of left shoulder region Not Available [facility] 5 23:03:56 Carpal tunnel syndrome of left wrist 47784115800 02 Active 2019 Left carpal tunnel syndrome Not Available [facility] 5 23:03:54 Carpal tunnel syndrome of right wrist 68116946879 9108 Active 2019 Right carpal tunnel syndrome Not Available [facility] 5 23:03:55 Cervical radiculop athy 44079305 Active 2019 Possible cervical radiculop athy Not Available [facility] 5 23:03:56 Bilateral carpal tunnel syndrome 13428838839 084313 Active 2019 Possible bilateral carpal tunnel syndrome Not Available [facility] 5 23:03:55 Prepatell ar bursitis of left knee 98619498888 9103 Active 2022 VIOLETTE CORRALES PA-C [address], [place], [address] , [place] [facility] 3 14:06:33 Osteoarth ritis of left knee joint 73443279620 9109 Active 2022 VIOLETTE CORRALES PA-C [address], [place], [address] , [place] [facility] 3 10:10:06 Synovial cyst of right knee 99142596516 9104 Active 2022 VIOLETTE CORRALES PA-C [address], [place], [address] , [place] [facility] 3 09:39:52 Problem Notes None recorded. Procedures Surgical History Date Name Laterality Status Provider Name and Address Organization Details Recorded Time 05/11/2023 Knee Joint/Burs a Asp & Inj completed VIOLETTE CORRALES PA-C [address], [place], [address], [place] [facility] 05/11/2023 10:07:19 04/27/2023 Knee Joint/Burs a Asp & Inj completed VIOLETTE CORRALES PA-C [address], [place], [address], [place] [facility] 04/28/2023 08:13:06 Knee arthroscop y/surgery [facility] 04/27/2023 13:25:28 Imaging Results None recorded. Procedure Notes None recorded. Medical Equipment None Reported. Allergies Allergen ID Allergen Name Allergen Category Reaction Reaction Severity Criticality Documentation Date Start Date Code Code System Note Provider Name and Address Organization Details Recorded Time 7279 Iodinated contrast media (substanc e) medicatio n Not available Not available Not available 04/27/2023 53156 2003 SNOMED [place], [place] [facility] 3 13:24:08 Medications Name Sig Start [...] Updated DateTime 04/27/2023 157.48 cm 36.4 kg/m2 05444.88 g [facility] - [facility], 04/27/2023 13:24:24 Date Recorded Body height Provider Name an d Address Organization Details Last Updated DateTime 08/10/2023 157.48 cm [facility], 08/10/2023 08:53:04 Social History None recorded. [...] ICD10 Code Diagnosis IMO Codes Diagnosis Note [id number] [facility] [address] [address] 04/27/2023 12:51:19 04/27/2023 14:11:04 Pain of left knee joint 3129447190 59444 M25.562 Pain of ri ght knee joint 4743566704 33032 M25.561 Pain of bi lateral knee joints 2780439895 72033 M25.561 Prepatella r bursitis of left knee 3229281443 39693 M70.42 [id number] CURT CALHOUNfie ld 299 [facility] [address] [place] [address] 05/11/2023 09:12:00 05/11/2023 10:08:57 Osteoarthritis of left knee joint 8403429795 80302 M17.12 [id number] CURT CALHOUN [facility] [address] [facility] [address] [place] [address] 08/10/2023 08:41:03 08/10/2023 09:56:06 Synovial cyst of right knee 6210147067 78948 M71.21 Health Concerns Section Related Observation LastModified by Organization Detai ls LastModified Time None Recorded Concern Status LastModified by Organization Details LastModified Time None Recorded Advance Directives Directive None Recorded Payers Insurance Date Sequence Insurance Name Policy Number Policy Orta Covered Member ID Orta Member ID Guarantor Name 02/16/2024 1 MEDICARE B-AR: [employer] SERVICES [facility] [id number] [facility] 04/05/2024 2 [facility] [id number] [facility] [id number] [facility] Notes Date Note Type Note Provider [...] evaluation and treatment. VIOLETTE CORRALES PA-C [address], [address], [place] [facility] 06/07/2023 13:07:40 05/11/2023 text/html Assessment & [...] going on vacation. VIOLETTE CORRALES PA-C [address], [address], [place] [facility] 05/11/2023 10:11:00 08/10/2023 text/html 63-year-old female [...] shortness of breath. VIOLETTE CORRALES PA-C [address] [facility] [address], [place], [address], [place] [facility] 08/10/2023 09:40:52 OBGyn Episode No OBEpisode recorded.
--- OUTSIDE RECORDS SUMMARY | 2025-06-25 07:10 | XMS_ITS | Clinical Summary ---
Author Organization [employer] [facility] Address [address] [place] [address] Care Team Providers Care Policyholder Information Clerk Name Role Phone Flakita Calero MD [...] age to complete this topic Care Teams Policyholder Information Clerk Relationship Specialty Start Date End Date Flakita Calero MD [address] [place] [address] PCP - General 02/15/08
--- OUTSIDE RECORDS SUMMARY | 2025-06-25 07:10 | XMS_ITS | Data Portability ---
Author Organization [facility], PAIN OFFICE Address [address] [facility] [address] [place] [address] Care Team Providers Care Hooker Laster Name Role Phone LIZ LOPEZ Primary Care Provider [phone] SARAH CLAY Referring Provider Assessment Encounter Date [...] results of the imaging studies done at [facility]. [email or web address] Not available 12/29/2020 08:21:00 06/29/2021 [...] for the same. 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 She [...] By Organization Details Last Modified Time 12/28/2020 [id number] Telehealth visit: The patient was located at home for this telephone electronic visit and gave consent for this visit to be conducted via telehealth. 15 minutes was spent on this call and greater than 50% of the visit was spent on counseling and coordination of care [email or web address] Not available 12/29/2020 08:16:48 06/29/2021 05594 She was advised against bed rest lasting longer than four days and to continue activities as tolerated. [email or web address] Not available 06/29/2021 13:50:55 08/09/2021 23020 She was advised against bed rest lasting [...] care. [email or web address] Not available 08/09/2021 11:56:59 01/12/2022 86028 She was advised against bed rest lasting longer than four days and to continue activities as tolerated. [email or web address] Not available 01/15/2022 10:55:55 01/24/2022 11445 She was advised against bed rest lasting longer than four days and to continue activities as tolerated. [email or web address] Not available 01/24/2022 16:06:51 Reason for Referral None Reported. Problems Name Problem SNOMED Code Status Onset Date Resolution Date Notes Provider Name and Address Organization Details Recorded Time Degeneration of lumbar intervertebral disc [id number] Geovanna farfan MD [address] [facility] , [address], [place], [address], [place] [facility] 11:51:41 Lumbar radiculopathy 467770257 Geovanna farfan MD [address] , [address], [facility] [place], [address], [place] [facility] 9 11:53:15 Lumbosacral spondylosis without myelopathy 12890866 Active Jagruti farfan MD [address] [facility] , [address], [place], [address], [place] [facility] 9 11:53:34 Degeneration of cervical intervertebral disc 06358591 Active Jagruti farfan MD [address] [facility] , [address], [place], [address], [place] [facility] 09:02:31 Muscle pain 15345683 Active Jagruti farfan MD [address] [facility] , [address], [place], [address], [place] [facility] 09:02:41 Problem Notes None recorded. Procedures Surgical History Date Name Laterality Status Provider Name and Address Organization Details Recorded Time 01/25/20 22 Intra-articular shoulder steroid injection under ultrasound guidance completed Jagruti Elizabeth MD [address] [facility] , [address], [place], [address], [place] [facility] 01/24/2022 16:06:02 06/29/20 21 Lumbar Epidural steroid injection under fluoroscopic guidance completed Jagruti Elizabeth MD [address] [facility] , [address], [place], [address], [place] [facility] 06/29/2021 13:51:52 07/21/20 20 Lumbar Epidural steroid injection under fluoroscopic guidance completed Jagruti Elizabeth MD [address] [facility] , [address], [place], [address], [place] [facility] 07/21/2020 15:54:12 10/23/19 20 Lumbar Epidural steroid injection under fluoroscopic guidance completed Jagruti Elizabeth MD [address] [facility] , [address], [place], [address], [place] [facility] 10/23/2019 14:39:47 05/30/20 19 Trigger Point Injections under ultrasound guidance completed Jagruti Elizabeth MD [address] , [address], [place], [address], [place] [facility] 05/30/2019 13:31:49 05/15/20 19 Trigger Point Injections under ultrasound guidance completed Jagruti Elizabeth MD [address] [facility] , [address], [place], [address], [place] [facility] 05/15/2019 14:15:41 04/02/20 19 Lumbar Epidural steroid injection under fluoroscopic guidance completed Jagruti Elizabeth MD [address] [facility] , [address], [place], [address], [place] [facility] 04/03/2019 08:35:11 10/09/19 19 Lumbar Epidural steroid injection under fluoroscopic guidance completed Jagruti Elizabeth MD [address] [facility] , [address], [place], [address], [place] [facility] 10/09/2018 [...] Name and Address Organization Details Recorded Time 99946 Iodinated contrast media (substanc e) medicatio n rash Not available Not available 09/14/2018 54734 2004 SNOMED < great er 21 years [...] Updated DateTime 2 157.48 cm 36.4 kg/m2 77901.8 8 g 80 /min 94 % 94 % 10 162/81 mm[Hg] Jagruti farfan MD [address] , [address], [place], [address], [place] [facility] 2 11:23:01 Date Recorded Body height Body mass index (BMI) Body weight Heart rate Oxygen saturation Oxygen saturation in Arterial blood by Pulse oximetry Systolic And Diastolic Provider Name and Address Organization Details Last Updated DateTime 1 157.48 cm 36.4 kg/m2 82459.8 8 g 84 /min 96 % 96 % 121/75 mm[Hg] Eden Mcmullen [place] [facility] 1 10:30:30 Date Recorded Body height Provider Name an d Address Organization Details Last Updated DateTime 08/09/2021 157.48 cm Jagruti Elizabeth MD [address] , [address], [place], [address], [place] [facility] 08/09/2021 11:57:31 Social History Question Answer Notes LastModified by Organizat ion Details LastModified Time Tobacco Smoking Status Former Smoker quit x 12 years Not Available [facility] 06/26/2020 03:16:11 Which Illicit Or Recreational Drugs Have You Used? No [id number] Information not available 06/26/2020 Education 12 Information no t available 09/14/2018 Live Alone Or With Others? With Others Information not available 09/14/2018 Marital Status Informatio n not available 09/14/2018 What Was The Date Of Your Most Recent Tobacco Screening? 03/27/2019 [id number] Information not available 06/26/2020 How Many Years Have You Smoked Tobacco? 20 [id number] Information not available 06/26/2020 Sex: Unknown Functional Status Question Answer Note LastModified by Organizat ion Details LastModified Time What is your level of alcohol consumption? Occasional [id number] Information not available 06/26/2020 Are you currently employed? No [id number] Information not available 06/26/2020 What is your [...] ICD10 Code Diagnosis IMO Codes Diagnosis Note [id number] Jagruti Elizabeth MD PAIN OFFICE [address] [place] [address] 09/14/2018 09:20:14 09/14/2018 12:05:18 Lumbosacral spondylosis without myelopathy 53256763 M47.817 Lumbar radiculopathy 128 583522 M54.16 Degenerati on of lumbar intervertebral disc 76566428 M51.36 [id number] Jagruti Elizabeth MD PAIN OFFICE [address] [place] [address] 10/09/2018 08:54:37 10/09/2018 10:59:45 Lumbosacral spondylosis without myelopathy 35554250 M47.817 Lumbar radiculopathy 128 847612 M54.16 Degenerati on of lumbar intervertebral disc 01125037 M51.36 [id number] Jagruti Elizabeth MD PAIN OFFICE [address] [place] [address] 11/08/2018 08:45:11 11/08/2018 11:03:12 Lumbosacral spondylosis without myelopathy 36666222 M47.817 Lumbar radiculopathy 128 723147 M54.16 Degenerati on of lumbar intervertebral disc 97792975 M51.36 [id number] Jagruti Elizabeth MD PAIN OFFICE [address] [place] [address] 03/26/2019 13:44:21 03/27/2019 16:06:04 Lumbosacral spondylosis without myelopathy 36994714 M47.817 Lumbar radiculopathy 128 260784 M54.16 Degenerati on of lumbar intervertebral disc 77507811 M51.36 [id number] Jagruti Elizabeth MD PAIN OFFICE [address] [place] [address] 04/02/2019 14:22:38 04/03/2019 11:57:34 Lumbosacral spondylosis without myelopathy 97602894 M47.817 Lumbar radiculopathy 128 310758 M54.16 Degenerati on of lumbar intervertebral disc 33271460 M51.36 [id number] Jagruti Elizabeth MD PAIN OFFICE [address] [place] [address] 05/06/2019 10:21:08 05/15/2019 11:02:55 Degeneration of cervical intervertebral disc 05821537 M50.30 Muscle pain 81875613 M79 .18 Degenerati on of lumbar intervertebral disc 79225278 M51.36 Lumbar radiculopathy 128 814578 M54.16 Lumbosacra l spondylosis without myelopathy 90205095 M47.817 [id number] Jagruti Elizabeth MD PAIN OFFICE [address] [place] [address] 05/15/2019 13:13:23 05/15/2019 14:18:15 Degeneration of cervical intervertebral disc 62021225 M50.30 Muscle pain 72820938 M79 .18 Degenerati on of lumbar intervertebral disc 62634668 M51.36 Lumbar radiculopathy 128 124554 M54.16 Lumbosacra l spondylosis without myelopathy 78994924 M47.817 12190 Jagruti Elizabeth MD PAIN OFFICE [address] [place] [address] 05/30/2019 12:55:57 05/30/2019 13:33:51 Degeneration of cervical intervertebral disc 97348503 M50.30 Muscle pain 21865931 M79 .18 Degenerati on of lumbar intervertebral disc 41612307 M51.36 Lumbar radiculopathy 128 950802 M54.16 Lumbosacra l spondylosis without myelopathy 57542407 M47.817 [id number] Jagruti Elizabeth MD PAIN OFFICE [address] [place] [address] 06/12/2019 11:37:11 06/24/2019 16:57:19 Degeneration of cervical intervertebral disc 19749899 M50.30 Muscle pain 46513804 M79 .18 Degenerati on of lumbar intervertebral disc 70458995 M51.36 Lumbar radiculopathy 128 424298 M54.16 Lumbosacra l spondylosis without myelopathy 54336959 M47.817 [id number] Jagruti Elizabeth MD PAIN OFFICE [address] [place] [address] 10/23/2019 13:52:47 10/23/2019 14:42:33 Lumbosacral spondylosis without myelopathy 11643694 M47.817 Lumbar radiculopathy 128 105435 M54.16 Degenerati on of lumbar intervertebral disc 44330639 M51.36 [id number] Jagruti Elizabeth MD PAIN OFFICE [address] [place] [address] 06/30/2020 08:32:55 06/30/2020 08:45:50 Lumbosacral spondylosis without myelopathy 39308168 M47.817 Lumbar radiculopathy 128 995701 M54.16 Degenerati on of lumbar intervertebral disc 37800908 M51.36 [id number] Jagruti Elizabeth MD PAIN OFFICE [address] [place] [address] 07/21/2020 15:28:07 07/21/2020 15:57:40 Lumbosacral spondylosis without myelopathy 04693884 M47.817 Lumbar radiculopathy 128 088700 M54.16 Degenerati on of lumbar intervertebral disc 26241472 M51.36 [id number] Jagruti Elizabeth MD PAIN OFFICE [address] [place] [address] 08/17/2020 09:19:36 08/17/2020 09:24:43 Lumbosacral spondylosis without myelopathy 71903728 M47.817 Lumbar radiculopathy 128 455776 M54.16 Degenerati on of lumbar intervertebral disc 62654598 M51.36 [id number] Jagruti Elizabeth MD [facility] PA[facility] [address] [place] [address] 12/28/2020 15:16:05 12/29/2020 08:21:36 Muscle pain 66643947 M79.18 [id number] Jagruti Elizabeth MD [facility] PAIN OFFICE [address] [place] [address] 06/29/2021 10:22:54 06/29/2021 13:59:36 Lumbosacral spondylosis without myelopathy 25726418 M47.817 Lumbar radiculopathy 128 798663 M54.16 Degenerati on of lumbar intervertebral disc 93742521 M51.36 [id number] Jagruti Elizabeth MD PAIN OFFICE [address] [place] [address] 08/09/2021 11:55:52 08/09/2021 13:16:05 Lumbosacral spondylosis without myelopathy 10511230 M47.817 Lumbar radiculopathy 128 763818 M54.16 Degenerati on of lumbar intervertebral disc 71366006 M51.36 [id number] Jagruti Elizabeth MD [facility] PAIN OFFICE [address] [place] [address] 01/12/2022 13:35:53 01/15/2022 10:59:14 Inflammation of joint of shoulder region 905348361 M13.819 Subacromia l bursitis of left shoulder 8822512366 897873 M75.52 [id number] Jagruti Elizabeth MD [facility] PAIN OFFICE [address] [place] [address] 01/24/2022 11:13:47 01/24/2022 16:09:39 Inflammation of joint of shoulder region 306270289 M13.819 Subacromia l bursitis of left shoulder 2348919853 368644 M75.52 Health Concerns Section Related Observation LastModified by Organization Detai ls LastModified Time None Recorded Concern Status LastModified by Organization Details LastModified Time None Recorded Advance Directives Directive None Recorded Payers Insurance Date Sequence Insurance Name Policy Number Policy Orta Covered Member ID Orta Member ID Guarantor Name 06/27/2022 1 [facility] Ya Cameron [id number] Ya Cameron 11/21/2022 2 [facility] [id number] Ya Cameron [id number] Ya Cameron 06/27/2022 1 [facility] Ya Cameron [id number] Ya Cameron 11/21/2022 1 [place]IC[place]: [employer] Ya Cameron [id number] Ya Cameron Notes Date Note Type Note [...] bladder or bowel incontinence.She was seen at [facility] and had imaging done. Results are not available today. Jagruti Elizabeth MD [address] [facility] , [address], [place], [address], [facility] - [facility] Management 12/30/2020 08:57:28 06/29/2021 text/html She is here for a lumbar epidural steroid injection under fluoroscopic guidance. She had a fall in [facility] and has been having an exacerbation of her pain. She was seen at [facility]. No recent X-rays. Jagruti Elizabeth MD [address] [facility] , [address], [place], [address], [facility] - Pain Management 06/30/2021 08:52:14 08/09/2021 text/html This is a follow up after a lumbar epidural steroid injection under fluoroscopic guidance. She reports 70-80% pain benefit which is ongoing. She has stiffness in the morning which improves with stretching. She is walking better . Jagruti Elizabeth MD [address] [facility] , [address], [place], [address], [facility] Pain Management 08/11/2021 09:15:50 01/12/2022 text/html She is here for a follow up. She was last seen on 07/01 for a lumbar epidural steroid injection under fluoroscopic guidance. She reports good pain benefit. She is complaining of left shoulder pain . She has seen Dr. Rodriguez , orthopedic surgeon at [facility] for her pain. He recommend a left shoulder steroid injection under ultrasound guidance. She has been having shoulder pain for the past five years . She is having a difficult time lifting her arm over her head.MRI left shoulder shows mild supraspinatus tendonitis and minimal distal inferior spinatus calcific tendonitis. Mild glenohumeral arthritis. Jagruti Elizabeth MD [address] [facility] [address], [place], [address], [facility] Pain Management 01/15/2022 11:05:58 01/24/2022 text/html She is here for a left shoulder steroid injection under ultrasound guidance Jagruti Elizabeth MD [address] [facility] [address], [place], [address], [facility] Pain Management 01/24/2022 16:37:45 OBGyn Episode No OBEpisode recorded.
[2025-06-25 10:50] LABS: Cholesterol 121 mg/dL (<200); HDL Cholesterol 33 mg/dL (>40); Triglycerides 163 mg/dL (<150)
== END 2025-06-25 07:08 | disposition home or self-care (01) ==
LOC: HO.HMGCLDS 07:07
PROVIDERS: PCP Internal Medicine; Visit Provider Internal Medicine
DX: E11.65 Type 2 diabetes mellitus with hyperglycemia (principal); E78.5 Hyperlipidemia, unspecified; Z78.0 Asymptomatic menopausal state; R82.90 Unspecified abnormal findings in urine
CPT/HCPCS: 36415; 80061; 82306; 83036; 87086; 87088; 87186

== ENCOUNTER 2025-07-18 08:47 | Outpatient (AMB) | payer MEDICARE, OTHER, SELFPAY ==
[2025-07-18 08:49] VITALS: BP 118/62; PULSE 93; BMI 37.4
--- NOTE | 2025-07-18 08:49 | MHC.OFFVIS ---
Vital Signs 07/18/25 08:49 Height 5 ft 2 in Weight 204 lb 9.423 oz BMI 37.4 BP 118/62 Blood Pressure Location Lt brachial Position Sitting Pulse 93 Pulse Source Pulse Oximeter Intake Visit Reasons: ED follow up Intake Note: Ed follow up . Construction Field Engineer Required: No Accompanied by: Self / Same As Patient Allergies capsaicin Adverse Reaction (Intermediate, Verified 07/18/25 08:52) Rash Iodinated Contrast Media (IV Contrast Dye) Adverse Reaction (Intermediate, Verified 07/18/25 08:52) Rash perflutren (From Definity) Adverse Reaction (Intermediate, Verified 07/18/25 08:52) Rash HPI Comments Details: Ya comes for follow-up after recent ED presentation with syncope. Patient says that she was sitting on the couch and suddenly had palpitation and then found herself waking up from the side of the couch. She does not actually recall passing out. She did not have any lightheadedness or diaphoresis or chest pain or shortness of breath prior to passing out. She came to the emergency room in the workup was within normal limits. She was then discharged home and for follow-up. Since then she has not palpitations or loss. She denies any clear orthostatic lightheadedness. She has no exertional chest pain but has exertional shortness of breath which is not new. Denies any orthopnea, PND, leg edema. 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 Prolapse of female pelvic organs Prepatellar bursitis Generalized anxiety disorder COPD (chronic obstructive pulmonary disease) Depression, major, recurrent, in complete remission Herpes zoster Left shoulder tendinitis GERD (gastroesophageal reflux disease) Calcaneal spur of left foot Arthritis of first metatarsophalangeal (MTP) joint of left foot Deviated nasal septum History of pulmonary embolism Essential hypertension Dyslipidemia Surgical History History of esophagogastroduodenoscopy (EGD) H/O colonoscopy Hx of blepharoplasty Status post open reduction and internal fixation (ORIF) of fracture (~09/16/23) History of fusion of cervical spine Hx of left breast biopsy History of partial thyroidectomy History of shoulder surgery History of tubal ligation Family History Father Alcoholism Mother HTN (hypertension) Hyperlipidemia CVD (cardiovascular disease) Sister Hyperlipidemia Alcoholism Substance use disorder Brother No problems noted. Sister No problems noted. Sister No problems noted. Sister No problems noted. Daughter No problems noted. Daughter No problems noted. 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 Social History Household Members: Significant Other Household Members Other:: 2 Housing: Apartment Are you a primary childcare administrator to a significant other at home: No Do you presently have visiting nurse or other home services: No Alcohol intake: current Alcohol intake frequency: holidays/special occasions only Patient Tobacco Use Status: Former Tobacco user Tobacco use type: Cigarette Years Smoked: 20 e-Cigarette/Vaping Use: Never Used Second Hand Smoke Exposure: No Advance Directives Date on File: 11/08/22 service: No Current occupational status: disabled Cognitive needs: No Hearing needs: No Vision needs: Yes Review of Systems Const Denies daytime sleepiness, Denies difficulty sleeping, Denies snoring, Denies stops breathing during sleep and Denies weakness Card Denies chest pain, Denies rapid heart rate, Denies irregular heart rhythm, Denies claudication, Denies leg edema, Denies lightheadedness, Reports palpitations, Reports dyspnea, Reports dyspnea on exertion, Denies orthopnea, Denies paroxysmal nocturnal dyspnea and Denies slow heart rate Resp Denies cough, Reports dyspnea, Reports dyspnea on exertion and Denies snoring GI Reports no additional complaints, Denies hematochezia, Denies change in stool character and Denies dyspepsia Musc Denies abnormal gait, Denies muscle weakness and Denies numbness Neuro Denies abnormal gait, Denies numbness and Denies weakness Endo Reports palpitations Physical Exam Vital Signs: Last Vital Signs Pulse 93 07/18/25 08:49 BP 118/62 07/18/25 08:49 BMI result Body Mass Index 37.4 Const General: cooperative, healthy appearing, comfortable and no acute distress Orientation/consciousness: patient oriented x3 Neck Neck: Yes normal visual inspection and Yes no JVD Resp Effort & Inspection: normal respiratory effort Auscultation: clear to auscultation bilaterally, no crackles, no rales, no rhonchi and no wheezes Cardio Jugular venous distension: no JVD Rate: regular rate Rhythm: regular rhythm Heart sounds: S1 normal heart sound present, S2 normal heart sound present, no murmurs and no rubs GI Inspection: Yes normal to inspection Neuro General: patient oriented x3 Extrem General: Yes normal to inspection and No no pedal edema Psych Appearance: grossly normal Mental Status: mental status grossly normal Speech and movement: Normal speech and movement present Assessment & Plan Assessment & Plan (1) Syncope: Code(s): R55 - Syncope and collapse Category: Medical Plan: Syncope in this middle-aged woman happening after episodes of palpitation and while sitting. This is unusual for vasovagal or orthostatic syncope. She has not recurrent orthostatic question cardiac arrhythmias related syncope. However this is infrequent and therefore diagnose is would be difficult and was discussed with her. I think she would benefit from an implantable loop recorder to assess for any significant arrhythmias causing her syncopal episode. We discussed the need for implantable loop recorder including the procedure details including, risks, benefits, alternatives. She is agreeable. Will also obtain an echocardiogram to assess for cardiac structure and function especially given her syncope as well as symptoms of exertional shortness of breath. Will follow up in the clinic after placement of implantable loop recorder. Thank you for allowing me to partake in her care Coding Level of Care Code Est Pt Level 4 (77136) Complex EM visit Add On G2211 Diagnoses Syncope R55
== END 2025-07-18 09:09 | disposition home or self-care (01) ==
LOC: HO.HCS 08:48
PROVIDERS: PCP Internal Medicine; Visit Provider Internal Medicine Cardiovascular Disease
DX: R55 Syncope and collapse (principal)
CPT/HCPCS: 99214; G2211

== ENCOUNTER → 2025-07-18 08:47 | Outpatient (BNVA) | payer MEDICARE, OTHER, SELFPAY | PROVIDERS: PCP Internal Medicine; Visit Provider Internal Medicine Cardiovascular Disease | DX: Z09 Encounter for follow-up examination after completed treatment for conditions other than malignant neoplasm (principal); R55 Syncope and collapse | CPT/HCPCS: 99212 ==

== ENCOUNTER 2025-07-23 12:09 | Outpatient (REF) | payer MEDICARE, OTHER, SELFPAY ==
[2025-07-23 13:27] VITALS: BP 166/94; PULSE 92; RESP 16; TEMP 36.3; O2SAT 96; BMI 36.6
--- NOTE | 2025-07-23 14:27 | PM.OP ---
Brief Operative Note Date of Service: 07/23/25 Pre-op diagnosis: Syncope Post-op diagnosis: same Procedure: Placement of implantable loop recorder. Implants: After obtaining full informed consent patient was brought to the minor surgery suite. Patient was then laid supine on the operating table. Patient is precordial area was then prepped and draped in a sterile fashion. Patient was then given 2% lidocaine with epinephrine intradermally and subcutaneously in the precordial space. A small incision was then made in the precordial area. A implantable loop recorder, [employer] LINQ 2 with serial number [id number] was then implanted in the subcutaneous place using modified Seldinger technique. Measured R-waves at 0.32 mV with good QRS and P wave complexes noted. The incision was then closed with Steri-Strips and sterile pressure dressing then applied Surgeon: Tawanda Reyes MD Was an Manufacturing Process Technician used for this Procedure?: No Estimated blood loss (mL): 2 Pathology: none sent Condition: stable Disposition: same day
--- OUTSIDE RECORDS SUMMARY | 2025-07-23 14:56 | XMS_ITS | Encounter Summary ---
Author Organization [facility] Address [address] [place] [address] Care Team Providers Care Supervisor Agency Appointments Name Role Phone Flakita Calero MD Primary Care Provider Encounter Details Date Type Department Care Team (Late st Contact Info) Description 07/11/2025 Lab Requisition [facility] - Main Lab [address] [place] [address] Tylor Thomas MD [address] [address] Urinary tract infection, site not specified Social History Tobacco Use Types Packs/Day Years Used Date Smoking Tobacco: Never Smokeless Tobacco: Never Alcohol Use Standard Drinks/Week Comments No 0 (1 standard drink = 0.6 oz pur e alcohol) Comments Unknown Sex and Gender Information Value Date Recorded Sex Assigned at Not on file Legal Sex Female 12:06 PM EST Gender Identity Not on file Sexual Orientation Not on file documented as of this encounter Plan of Treatment Not on file documented as of this encounter Procedures Procedure Name Priority Date/Time Associated Diagnosis Comments CULTURE URINE Routine 07/11/2025 10:30 AM EDT Urinary tract infection, site not specified documented in this encounter Results * (ABNORMAL) Culture urine (07/11/2025 10:30 AM EDT) Culture, Urine >=100,000 CFU/mL Klebsiella pneumoniae ssp pneumoniae(A) TIM 07/13/2025 11:23 AM EST [facility] Comment: This is an edited result. Previous organism was Gram negative bacilli on 07/12/2025 at 0751 EDT. Urine Urinary bladder structure / Unknown 07/11/2025 10:30 AM EDT 07/11/2025 6:18 PM EDT Narrative Organism Antibiotic Method Susceptibility Klebsiella pneumoniae ssp pneumoniae Amoxicillin/Clavulanate ITM <=2 ug/ml: Susceptible Klebsiella pneumoniae ssp pneumoniae Ampicillin/Sulbactam TIM 4 ug/ml: Susceptible Klebsiella pneumoniae ssp pneumoniae Piperacillin/Tazobactam TIM <=4 ug/ml: Susceptible Klebsiella pneumoniae ssp pneumoniae Cefazolin (Urine) TIM 2 ug/ml: Susceptible Klebsiella pneumoniae ssp pneumoniae Cefoxitin TIM <=4 ug/ml: Susceptible Klebsiella pneumoniae ssp pneumoniae Ceftazidime TIM <=0.5 ug/ml: Susceptible Klebsiella pneumoniae ssp pneumoniae Ceftriaxone TIM <=0.25 ug/ml: Susceptible Klebsiella pneumoniae ssp pneumoniae Cefepime TIM <=0.12 ug/ml: Susceptible Klebsiella pneumoniae ssp pneumoniae Meropenem TIM <=0.25 ug/ml: Susceptible Klebsiella pneumoniae ssp pneumoniae Amikacin TIM <=1 ug/ml: Susceptible Klebsiella pneumoniae ssp pneumoniae Gentamicin TIM <=1 ug/ml: Susceptible Klebsiella pneumoniae ssp pneumoniae Ciprofloxacin TIM <=0.06 ug/ml: Susceptible Klebsiella pneumoniae ssp pneumoniae Levofloxacin TIM <=0.12 ug/ml: Susceptible Klebsiella pneumoniae ssp pneumoniae Nitrofurantoin TIM 64 ug/ml: Intermediate Klebsiella pneumoniae ssp pneumoniae Trimethoprim/Sulfamethoxazo le TIM <=20 ug/ml: Susceptible us Tylor Thomas MD LAB MICROBIOLOGY - GENERA L ORDERABLES Final Result [facility] [address] [place] [address], documented in this encounter Visit Diagnoses Diagnosis Urinary tract infection, site not specified documented in this encounter Care Teams Supervisor Agency Appointments Relationship Specialty Start Date End Date Flakita Calero MD [address] [place] [address] PCP - General 02/15/08 documented as of this encounter
--- OUTSIDE RECORDS SUMMARY | 2025-07-23 14:56 | XMS_ITS | Data Portability ---
Author Organization [place] [facility] [place] Address [address] [place] [address] Care Team Providers Care Sleeve Turner Name Role Phone LIZ LOPEZ Primary Care [...] Left Knee Pain 2022 023 [facility], [address], [place], [address], 3 15:18:58 XR, knee, 1 or 2 view - Right Knee Pain 2022 023 [facility], [address], [place], [address], 3 15:18:58 XR, knee, weightbeari ng - Bilateral Knee Pain 2022 023 [facility], [address], [place], [address], 3 15:18:58 Medication Orders Kenalog 40 mg/mL suspension for injection 2022 023 [facility], [address] [place] [address], [address], 08:52:19 lidocaine (PF) 10 mg/mL (1 %) injection solution 2022 023 [place] [address] [facility], [address] [place] [address], [address], 08:52:23 Bactrim DS 800 mg-160 mg tablet 2022 023 [place] [address] [facility], [address] [place] [address], [address], 08:52:34 lidocaine (PF) 10 mg/mL (1 %) injection solution 2022 023 [place] [address] [facility], [address] [place] [address], [address], 08:52:23 Patient TargetsNo targets recorded. Patient Instructions Encounter Date Encounter Id Patient Instructions Last Modified By Organization Details Last Modified Time 04/27/2023 [id number] X-rays of both knees reveal overall well-maintained joint space with mild degenerative change without acute bony abnormality. Normal bone mineralization no obvious soft tissue findings are observed. Not available 04/28/2023 08:16:44 05/11/2023 [id number] You have been provided with a cortisone [...] Recorded Time Arthritis of right knee joint 29318661744 94414 Active 2017 Arthritis of right knee Not Available [facility] 5 23:03:55 Subacromi al bursitis of left shoulder 46212570290 70345 Active 2019 Subacromi al bursitis of left shoulder joint Not Available [facility] 5 23:03:56 Impingeme nt syndrome of left shoulder region 09259322740 9104 Active 2019 Impingeme nt syndrome of left shoulder region Not Available [facility] 5 23:03:56 Carpal tunnel syndrome of left wrist 57857904733 02 Active 2019 Left carpal tunnel syndrome Not Available [facility] 5 23:03:54 Carpal tunnel syndrome of right wrist 47876568033 9108 Active 2019 Right carpal tunnel syndrome Not Available [facility] 5 23:03:55 Cervical radiculop athy 41185903 Active 2019 Possible cervical radiculop athy Not Available [facility] 5 23:03:56 Bilateral carpal tunnel syndrome 20050243763 986849 Active 2019 Possible bilateral carpal tunnel syndrome Not Available [facility] 5 23:03:55 Prepatell ar bursitis of left knee 46595367852 9103 Active 2022 VIOLETTE CORRALES PA-C [address], [place], [address] , [place] [facility] 3 14:06:33 Osteoarth ritis of left knee joint 95452895380 9109 Active 2022 VIOLETTE CORRALES PA-C [address], [place], [address] , [place] [facility] 3 10:10:06 Synovial cyst of right knee 25677469196 9104 Active 2022 VIOLETTE CORRALES PA-C [address], [place], [address] , [place] [facility] 3 09:39:52 Problem Notes None recorded. Procedures Surgical History Date Name Laterality Status Provider Name and Address Organization Details Recorded Time 05/11/2023 Knee Joint/Burs a Asp & Inj completed VIOLETTE CORRALES PA-C [address], [place], [address], [place] [facility] 05/11/2023 10:07:19 04/27/2023 Knee Joint/Burs a Asp & Inj completed VIOLETTE CORRALES PA-C [address], [place], [address], [place] [facility] 04/28/2023 08:13:06 Knee arthroscop y/surgery [facility] 04/27/2023 13:25:28 Imaging Results None recorded. Procedure Notes None recorded. Medical Equipment None Reported. Allergies Allergen ID Allergen Name Allergen Category Reaction Reaction Severity Criticality Documentation Date Start Date Code Code System Note Provider Name and Address Organization Details Recorded Time 7279 Iodinated contrast media (substanc e) medicatio n Not available Not available Not available 04/27/2023 03720 2003 SNOMED [place], [place] - [facility] 3 13:24:08 Medications Name Sig Start [...] Updated DateTime 04/27/2023 157.48 cm 36.4 kg/m2 87728.88 g [facility], 04/27/2023 13:24:24 Date Recorded Body height Provider Name an d Address Organization Details Last Updated DateTime 08/10/2023 157.48 cm [facility], 08/10/2023 08:53:04 Social History None [...] ICD10 Code Diagnosis IMO Codes Diagnosis Note [id number] [facility] [address] [address] 04/27/2023 12:51:19 04/27/2023 14:11:04 Pain of left knee joint 8719953020 35875 M25.562 Pain of ri ght knee joint 4214306395 45083 M25.561 Pain of bi lateral knee joints 1005483328 89662 M25.561 Prepatella r bursitis of left knee 8505083864 04157 M70.42 [id number] [address] [facility] [address] [facility] [place] [place] [address] 05/11/2023 09:12:00 05/11/2023 10:08:57 Osteoarthritis of left knee joint 1296950509 51301 M17.12 [id number] CURT CALHOUN [facility] 299 [facility] [address] [facility] [place] [place] [address] 08/10/2023 08:41:03 08/10/2023 09:56:06 Synovial cyst of right knee 2196353742 15680 M71.21 Health Concerns Section Related Observation LastModified by Organization Detai ls LastModified Time None Recorded Concern Status LastModified by Organization Details LastModified Time None Recorded Advance Directives Directive None Recorded Payers Insurance Date Sequence Insurance Name Policy Number Policy Orta Covered Member ID Orta Member ID Guarantor Name 02/16/2024 1 MEDICARE B-MD: [employer] [facility] [id number] [facility] 04/05/2024 2 [facility] [id number] [facility] [id number] [facility] Notes Date Note Type Note Provider [...] evaluation and treatment. VIOLETTE CORRALES PA-C [address], [address], [place] [facility] 06/07/2023 13:07:40 05/11/2023 text/html Assessment & [...] going on vacation. VIOLETTE CORRALES PA-C [address], [address], [place] [facility] 05/11/2023 10:11:00 08/10/2023 text/html 63-year-old female [...] shortness of breath. VIOLETTE CORRALES PA-C [address] [facility] [address], [place], [address], [place] [facility] 08/10/2023 09:40:52 OBGyn Episode No OBEpisode recorded.
--- OUTSIDE RECORDS SUMMARY | 2025-07-23 14:57 | XMS_ITS | Patient Health Record ---
Author Organization [facility] Address [address] [place] [address] Care Team Providers Care Phosphorus Processing Supervisor Name Role Phone Abdias QUIROZ, Flakita Bowens Primary Care Provider Un available Elena Mejia Unavailable [phone] Allergies Allergen (clinical drug ingredient) Drug/Non Drug [...] Problem Type II diabetes mellitus without complication (197732908) Type 2 diabetes mellitus without complications (E11.9) Active confirmed Problem Localized, primary osteoarthritis of the ankle and/or foot (567758362) Osteoarthritis of left ankle and foot (M19.072) Active confirmed Plan Of Treatment Pending Test Test Name Order Date X ray : Foot, left 3V 07/07/2021 [id number] NAIL, 1-5 06/06/2016 19113-Crmandfr Plate 01/17/2017 [id number]-Agwurvbc Plate 05/23/2016 53761-RIU 06/13/2017 33563- Debride <25 sq cm 07/21/2015 51110- Debride <25 sq cm 07/11/2017 04465- Debride <25 sq cm 07/25/2017 [id number] SKIN/TISSUE 06/27/2017 58914 I&D ABSCESS- SIMPLE,SINGLE 015 53533 I&D ABSCESS- SIMPLE,SINGLE 015 Insurance Providers Payer Name Payer Address Payer Phone Subscriber Number Group Number Insured Name Patient Relationship to Insured Coverage Start Date Coverage End Date Medicare [employer] [address] [place] [address] [id number] Ya Cameron Self - patient is the insured [facility] [address] [place] [address] [id number] Ya Cameron Self - patient is the [...]
--- OUTSIDE RECORDS SUMMARY | 2025-07-23 14:57 | XMS_ITS | Data Portability ---
Author Organization [facility] PAIN OFFICE Address [address] [facility] [address] [place] [address] Care Team Providers Care Transition Lead Name Role Phone LIZ LOPEZ Primary Care Provider [phone] SARAH CLAY Referring Provider Assessment Encounter Date [...] results of the imaging studies done at [facility]. [email or web address] Not available 12/29/2020 08:21:00 06/29/2021 [...] made for the same. 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 She [...] By Organization Details Last Modified Time 12/28/2020 [id number] Telehealth visit: The patient was located at home for this telephone electronic visit and gave consent for this visit to be conducted via telehealth. 15 minutes was spent on this call and greater than 50% of the visit was spent on counseling and coordination of care [email or web address] Not available 12/29/2020 08:16:48 06/29/2021 [id number] She was advised against bed rest lasting longer than four days and to continue activities as tolerated. [email or web address] Not available 06/29/2021 13:50:55 08/09/2021 [id number] She was advised against bed rest lasting [...] care. [email or web address] Not available 08/09/2021 11:56:59 01/12/2022 [id number] She was advised against bed rest lasting longer than four days and to continue activities as tolerated. [email or web address] Not available 01/15/2022 10:55:55 01/24/2022 [id number] She was advised against bed rest lasting longer than four days and to continue activities as tolerated. [email or web address] Not available 01/24/2022 16:06:51 Reason for Referral None Reported. Problems Name Problem SNOMED Code Status Onset Date Resolution Date Notes Provider Name and Address Organization Details Recorded Time Degeneration of lumbar intervertebral disc [id number] Geovanna farfan MD [address] [facility] , [address], [place], [address], [place] [facility] 11:51:41 Lumbar radiculopathy [id number] Geovanna farfan MD [address] , [address], [facility], [address], [place] [facility] 9 11:53:15 Lumbosacral spondylosis without myelopathy 65269888 Active Jagruti farfan MD [address] [facility] , [address], [place], [address], [place] [facility] 9 11:53:34 Degeneration of cervical intervertebral disc 14966384 Active Jagruti farfan MD [address] [facility] , [address], [place], [address], [place] [facility] 09:02:31 Muscle pain 08347142 Active Jagruti farfan MD [address] [facility] , [address], [place], [address], [place] [facility] 09:02:41 Problem Notes None recorded. Procedures Surgical History Date Name Laterality Status Provider Name and Address Organization Details Recorded Time 01/25/20 22 Intra-articular shoulder steroid injection under ultrasound guidance completed Jagruti Elizabeth MD [address] [facility] , [address], [place], [address], [place] [facility] 01/24/2022 16:06:02 06/29/20 21 Lumbar Epidural steroid injection under fluoroscopic guidance completed Jagruti Elizabeth MD [address] [facility] , [address], [place], [address], [place] [facility] 06/29/2021 13:51:52 07/21/20 20 Lumbar Epidural steroid injection under fluoroscopic guidance completed Jagruti Elizabeth MD [address] [facility] , [address], [place], [address], [place] [facility] 07/21/2020 15:54:12 10/23/19 20 Lumbar Epidural steroid injection under fluoroscopic guidance completed Jagruti Elizabeth MD [address] [facility] , [address], [place], [address], [place] [facility] 10/23/2019 14:39:47 05/30/20 19 Trigger Point Injections under ultrasound guidance completed Jagruti Elizabeth MD [address] , [address], [place], [address], [place] [facility] 05/30/2019 13:31:49 05/15/20 19 Trigger Point Injections under ultrasound guidance completed Jagruti Elizabeth MD [address] [facility] , [address], [place], [address], [place] [facility] 05/15/2019 14:15:41 04/02/20 19 Lumbar Epidural steroid injection under fluoroscopic guidance completed Jagruti Elizabeth MD [address] [facility] , [address], [place], [address], [place] [facility] 04/03/2019 08:35:11 10/09/19 19 Lumbar Epidural steroid injection under fluoroscopic guidance completed Jagruti Elizabeth MD [address] [facility] , [address], [place], [address], [place] [facility] 10/09/2018 [...] Name and Address Organization Details Recorded Time 00638 Iodinated contrast media (substanc e) medicatio n rash Not available Not available 09/14/2018 28020 2004 SNOMED < great er 21 years [...] Updated DateTime 2 157.48 cm 36.4 kg/m2 18453.8 8 g 80 /min 94 % 94 % 10 162/81 mm[Hg] Jagruti farfan MD [address] , [address], [place], [address], [place] [facility] 2 11:23:01 Date Recorded Body height Body mass index (BMI) Body weight Heart rate Oxygen saturation Oxygen saturation in Arterial blood by Pulse oximetry Systolic And Diastolic Provider Name and Address Organization Details Last Updated DateTime 1 157.48 cm 36.4 kg/m2 83520.8 8 g 84 /min 96 % 96 % 121/75 mm[Hg] Eden Mcmullen [place] - [facility] 1 10:30:30 Date Recorded Body height Provider Name an d Address Organization Details Last Updated DateTime 08/09/2021 157.48 cm Jagruti Elizabeth MD [address] , [address], [place], [address], [place] [facility] 08/09/2021 11:57:31 Social History Question Answer Notes LastModified by Organizat ion Details LastModified Time Tobacco Smoking Status Former Smoker quit x 12 years Not Available [facility] 06/26/2020 03:16:11 Which Illicit Or Recreational Drugs Have You Used? No [id number] Information not available 06/26/2020 Education 12 Information no t available 09/14/2018 Live Alone Or With Others? With Others Information not available 09/14/2018 Marital Status Informatio n not available 09/14/2018 What Was The Date Of Your Most Recent Tobacco Screening? 03/27/2019 [id number] Information not available 06/26/2020 How Many Years Have You Smoked Tobacco? 20 [id number] Information not available 06/26/2020 Sex: Unknown Functional Status Question Answer Note LastModified by Organizat ion Details LastModified Time What is your level of alcohol consumption? Occasional [id number] Information not available 06/26/2020 Are you currently employed? No [id number] Information not available 06/26/2020 What is your [...] ICD10 Code Diagnosis IMO Codes Diagnosis Note [id number] Jagruti Elizabeth MD PAIN OFFICE [address] [place] [address] 09/14/2018 09:20:14 09/14/2018 12:05:18 Lumbosacral spondylosis without myelopathy 60125450 M47.817 Lumbar radiculopathy 128 572620 M54.16 Degenerati on of lumbar intervertebral disc 40797858 M51.36 [id number] Jagruti Elizabeth MD PAIN OFFICE [address] [place] [address] 10/09/2018 08:54:37 10/09/2018 10:59:45 Lumbosacral spondylosis without myelopathy 69178741 M47.817 Lumbar radiculopathy 128 191678 M54.16 Degenerati on of lumbar intervertebral disc 83841346 M51.36 45718 Jagruti Elizabeth MD PAIN OFFICE [address] [place] [address] 11/08/2018 08:45:11 11/08/2018 11:03:12 Lumbosacral spondylosis without myelopathy 15882269 M47.817 Lumbar radiculopathy 128 596236 M54.16 Degenerati on of lumbar intervertebral disc 09365652 M51.36 73769 Jagruti Elizabeth MD PAIN OFFICE [address] [place] [address] 03/26/2019 13:44:21 03/27/2019 16:06:04 Lumbosacral spondylosis without myelopathy 64476224 M47.817 Lumbar radiculopathy 128 584493 M54.16 Degenerati on of lumbar intervertebral disc 70587253 M51.36 50465 Jagruti Elizabeth MD PAIN OFFICE [address] [place] [address] 04/02/2019 14:22:38 04/03/2019 11:57:34 Lumbosacral spondylosis without myelopathy 43851449 M47.817 Lumbar radiculopathy 128 489843 M54.16 Degenerati on of lumbar intervertebral disc 28426400 M51.36 25023 Jagruti Elizabeth MD PAIN OFFICE [address] [place] [address] 05/06/2019 10:21:08 05/15/2019 11:02:55 Degeneration of cervical intervertebral disc 50250568 M50.30 Muscle pain 00726359 M79 .18 Degenerati on of lumbar intervertebral disc 97976237 M51.36 Lumbar radiculopathy 128 036752 M54.16 Lumbosacra l spondylosis without myelopathy 30111160 M47.817 71896 Jagruti Elizabeth MD PAIN OFFICE [address] [place] [address] 05/15/2019 13:13:23 05/15/2019 14:18:15 Degeneration of cervical intervertebral disc 03594694 M50.30 Muscle pain 52710072 M79 .18 Degenerati on of lumbar intervertebral disc 97092043 M51.36 Lumbar radiculopathy 128 070794 M54.16 Lumbosacra l spondylosis without myelopathy 10048945 M47.817 30563 Jagruti Elizabeth MD PAIN OFFICE [address] [place] [address] 05/30/2019 12:55:57 05/30/2019 13:33:51 Degeneration of cervical intervertebral disc 63412687 M50.30 Muscle pain 78511783 M79 .18 Degenerati on of lumbar intervertebral disc 56180313 M51.36 Lumbar radiculopathy 128 658904 M54.16 Lumbosacra l spondylosis without myelopathy 59376802 M47.817 77596 Jagruti Elizabeth MD PAIN OFFICE [address] [place] [address] 06/12/2019 11:37:11 06/24/2019 16:57:19 Degeneration of cervical intervertebral disc 91296323 M50.30 Muscle pain 91222147 M79 .18 Degenerati on of lumbar intervertebral disc 52390236 M51.36 Lumbar radiculopathy 128 656207 M54.16 Lumbosacra l spondylosis without myelopathy 18944443 M47.817 11013 Jagruti Elizabeth MD PAIN OFFICE [address] [place] [address] 10/23/2019 13:52:47 10/23/2019 14:42:33 Lumbosacral spondylosis without myelopathy 89081601 M47.817 Lumbar radiculopathy 128 025268 M54.16 Degenerati on of lumbar intervertebral disc 31462922 M51.36 [id number] Jagruti Elizabeth MD PAIN OFFICE [address] [place] [address] 06/30/2020 08:32:55 06/30/2020 08:45:50 Lumbosacral spondylosis without myelopathy 64977902 M47.817 Lumbar radiculopathy 128 828308 M54.16 Degenerati on of lumbar intervertebral disc 12851348 M51.36 20128 Jagruti Elizabeth MD PAIN OFFICE [address] [place] [address] 07/21/2020 15:28:07 07/21/2020 15:57:40 Lumbosacral spondylosis without myelopathy 69013215 M47.817 Lumbar radiculopathy 128 405487 M54.16 Degenerati on of lumbar intervertebral disc 81013352 M51.36 25091 Jagruti Elizabeth MD PAIN OFFICE [address] [place] [address] 08/17/2020 09:19:36 08/17/2020 09:24:43 Lumbosacral spondylosis without myelopathy 64849155 M47.817 Lumbar radiculopathy 128 870731 M54.16 Degenerati on of lumbar intervertebral disc 55590874 M51.36 [id number] Jagruti Elizabeth MD [facility] PAIN OFFICE [address] [place] [address] 12/28/2020 15:16:05 12/29/2020 08:21:36 Muscle pain 29413994 M79.18 23888 Jagruti Elizabeth MD [facility] PAIN OFFICE [address] [place] [address] 06/29/2021 10:22:54 06/29/2021 13:59:36 Lumbosacral spondylosis without myelopathy 07289679 M47.817 Lumbar radiculopathy 128 054663 M54.16 Degenerati on of lumbar intervertebral disc 82250684 M51.36 [id number] Jagruti Elizabeth MD PAIN OFFICE [address] [place] [address] 08/09/2021 11:55:52 08/09/2021 13:16:05 Lumbosacral spondylosis without myelopathy 31737338 M47.817 Lumbar radiculopathy 128 269752 M54.16 Degenerati on of lumbar intervertebral disc 08219017 M51.36 18352 Jagruti Elizabeth MD [facility] PAIN OFFICE [address] [place] [address] 01/12/2022 13:35:53 01/15/2022 10:59:14 Inflammation of joint of shoulder region 155101821 M13.819 Subacromia l bursitis of left shoulder 3354784357 193938 M75.52 88096 Jagruti Elizabeth MD [facility] PAIN OFFICE [address] [place] [address] 01/24/2022 11:13:47 01/24/2022 16:09:39 Inflammation of joint of shoulder region 853213384 M13.819 Subacromia l bursitis of left shoulder 0777883613 874388 M75.52 Health Concerns Section Related Observation LastModified by Organization Detai ls LastModified Time None Recorded Concern Status LastModified by Organization Details LastModified Time None Recorded Advance Directives Directive None Recorded Payers Insurance Date Sequence Insurance Name Policy Number Policy Orta Covered Member ID Orta Member ID Guarantor Name 06/27/2022 1 [facility] Ya Cameron [id number] Ya Cameron 11/21/2022 2 [facility] [id number] Ya Cameron [id number] Ya Cameron 06/27/2022 1 [facility] Ya Cameron [id number] Ya Cameron 11/21/2022 1 [place] [employer] Ya Cameron [id number] Ya Cameron Notes Date Note Type Note [...] bladder or bowel incontinence.She was seen at [facility] and had imaging done. Results are not available today. Jagruti Elizabeth MD [address] [facility] , [address], [place], [address], [facility] - Pain Management 12/30/2020 08:57:28 06/29/2021 text/html She is here for a lumbar epidural steroid injection under fluoroscopic guidance. She had a fall in [facility] and has been having an exacerbation of her pain. She was seen at [facility]. No recent X-rays. Jagruti Elizabeth MD [address] [facility] , [address], [place], [address], [facility] - Pain Management 06/30/2021 08:52:14 08/09/2021 text/html This is a follow up after a lumbar epidural steroid injection under fluoroscopic guidance. She reports 70-80% pain benefit which is ongoing. She has stiffness in the morning which improves with stretching. She is walking better . Jagruti Elizabeth MD [address] [facility] , [address], [place], [address], [facility] Pain Management 08/11/2021 09:15:50 01/12/2022 text/html She is here for a follow up. She was last seen on 07/01 for a lumbar epidural steroid injection under fluoroscopic guidance. She reports good pain benefit. She is complaining of left shoulder pain . She has seen Dr. Rodriguez , orthopedic surgeon at [facility] for her pain. He recommend a left shoulder steroid injection under ultrasound guidance. She has been having shoulder pain for the past five years . She is having a difficult time lifting her arm over her head.MRI left shoulder shows mild supraspinatus tendonitis and minimal distal inferior spinatus calcific tendonitis. Mild glenohumeral arthritis. Jagruti Elizabeth MD [address] [facility] , [address], [place], [address], [facility] Pain Management 01/15/2022 11:05:58 01/24/2022 text/html She is here for a left shoulder steroid injection under ultrasound guidance Jagruti Elizabeth MD [address] [facility] , [address], [place], [address], [facility] Pain Management 01/24/2022 16:37:45 OBGyn Episode No OBEpisode recorded.
--- OUTSIDE RECORDS SUMMARY | 2025-07-23 14:57 | XMS_ITS | Clinical Summary ---
Author Organization [address] [facility] Address [address] [place] [address] Phone Care Team Providers Care Neighborhood Coordinator Name Role Phone Flakita Calero MD Primary Care Provider Encounters Date Type Department Care Team Description 07/11/2025 Lab Requisition [facility] - Main Lab [address] [facility] [place] [address] Tylor Thomas MD Urinary tract infection, site not specified from Last 3 Months Surgical History Surgery Date Site/Laterality Comments NECK SURGERY PROCEDURE:NECK SURGERY SHOULDER SURGERY PROCEDURE:SHOULDER SURGERY Medical History Medical History Date Comments Diabetes mellitus ([facility]/HCC V24, CMS/HCC V28) DX:Diabetes mellitus (HCC) Hypertension [...] 04/09/2024 Hypertension/CHF/CAD Annual BMP Blood Test 04/09/2024 Medicare Annual Wellness Visit 04/09/2024 Social Influencers of Health Screening 04/09/2024 Depression Screening 09/11/2024 COVID-19 Vaccine ( - 2024-2 6 season) 2025 Influenza Vaccine (#1) 2025 RSV [...] on patient's age to complete this topic Procedures Procedure Name Priority Date/Time Associated Diagnosis Comments CULTURE URINE Routine 07/11/2025 10:30 AM EDT Urinary tract infection, site not specified from Last 3 Months Results * (ABNORMAL) Culture urine (07/11/2025 10:30 AM EDT) Culture, Urine >=100,000 CFU/mL Klebsiella pneumoniae ssp pneumoniae(A) TIM 07/13/2025 11:23 AM EST [facility] Comment: This is an edited result. Previous organism was Gram negative bacilli on 07/12/2025 at 0751 EDT. Urine Urinary bladder structure / Unknown 07/11/2025 10:30 AM EDT 07/11/2025 6:18 PM EDT Narrative Organism Antibiotic Method Susceptibility Klebsiella pneumoniae ssp pneumoniae Amoxicillin/Clavulanate TIM <=2 ug/ml: Susceptible Klebsiella pneumoniae ssp pneumoniae [...] pneumoniae Trimethoprim/Sulfamethoxazo le TIM <=20 ug/ml: Susceptible Tylor Thomas MD LAB MICROBIOLOGY - GENERA L ORDERABLES Final Result [facility] [address] [place] [address], from Last 3 Months Insurance MEDICARE [facility] Care Teams Neighborhood Coordinator Relationship Specialty Start Date End Date Flakita Calero MD [address] [place] [address] PCP - General 02/15/08
--- OUTSIDE RECORDS SUMMARY | 2025-07-23 14:57 | XMS_ITS | Clinical Summary ---
Author Organization [facility] Address [address] [place] [address] Care Team Providers Care Flight Test Shop Mechanic Name Role Phone Flakita Calero MD Primary Care Provider [phone] Allergies Active Allergy Reactions Criticality Noted Date [...] age to complete this topic Care Teams Flight Test Shop Mechanic Relationship Specialty Start Date End Date Flakita Calero MD [address] [facility] [place] [id number] PCP - General Internal Medicine 10/27/17
== END 2025-07-23 12:10 | disposition home or self-care (01) ==
LOC: HO.MS 12:09
PROVIDERS: PCP Internal Medicine; Visit Provider Internal Medicine Cardiovascular Disease
PROC: (CPT 33285; principal; 2025-07-23 13:40)
DX: R55 Syncope and collapse (principal)
CPT/HCPCS: 33285; C1764; J2004

== ENCOUNTER → 2025-07-23 12:09 | Outpatient (BNV) | payer MEDICARE, OTHER, SELFPAY | PROVIDERS: PCP Internal Medicine; Visit Provider Internal Medicine Cardiovascular Disease | DX: Z45.09 Encounter for adjustment and management of other cardiac device (principal) | CPT/HCPCS: 33285 ==

== ENCOUNTER 2025-08-14 12:48 | Outpatient (REF) | payer MEDICARE, OTHER, SELFPAY ==
--- NOTE | ~2025-08-14 | MM_ITS ---
EXAMINATION: MM SCREENING DIGITAL BREAST TOMOSYNTHESIS, BILATERAL CLINICAL INFORMATION: Screening. Asymptomatic. History of excisional biopsy of the left breast on May 20, 2014; benign results. COMPARISON: Comparison made to multiple prior, most recent August 07, 2024, and most remote July 04, 2017. TECHNIQUE: Digital breast tomosynthesis is performed in mediolateral oblique and craniocaudal views along with computer-aided detection (CAD). Synthesized 2D images are generated from the tomosynthesis. Recently placed loop recorder; due to local sensitivity compression was limited. FINDINGS: BREAST COMPOSITION: There are scattered areas of fibroglandular density. RIGHT BREAST: No significant masses, suspicious calcifications or other abnormalities are seen. LEFT BREAST: Previous excisional biopsy. Loop recorder limits local evaluation. No significant masses, suspicious calcifications or other abnormalities are seen. MM/MM tomosynthesis screening BI IMPRESSION: BILATERAL BREASTS: Benign, no mammographic evidence of malignancy. Normal interval follow-up is recommended in 12 months. ASSESSMENT: BI-RADS: Category 2: Benign RECOMMENDATION: Routine annual mammography screening. FOLLOW-UP: 1 year F/U This examination should not preclude the clinical evaluation of a suspicious palpable abnormality. This patient's information was entered into a reminder system with a target due date for their next mammogram. Electronically signed by: Elise Vasquez MD 08/14/2025 02:07 PM [facility]
== END 2025-08-14 12:49 | disposition home or self-care (01) ==
LOC: HO.MAMMO 12:48
PROVIDERS: PCP Internal Medicine; Visit Provider Internal Medicine
DX: Z12.31 Encounter for screening mammogram for malignant neoplasm of breast (principal)
CPT/HCPCS: 77063; 77067

== ENCOUNTER → 2025-08-14 13:15 | Outpatient (BNV) | payer MEDICARE, OTHER, SELFPAY | PROVIDERS: PCP Internal Medicine; Visit Provider Radiology Body Imaging | DX: Z12.31 Encounter for screening mammogram for malignant neoplasm of breast (principal) | CPT/HCPCS: 77063; 77067 ==

== ENCOUNTER → 2025-08-27 14:47 | Outpatient (BNV) | payer MEDICARE, OTHER, SELFPAY | PROVIDERS: PCP Internal Medicine; Visit Provider Internal Medicine Cardiovascular Disease | DX: Z45.09 Encounter for adjustment and management of other cardiac device (principal) | CPT/HCPCS: 93298 ==

== ENCOUNTER → 2025-08-28 08:52 | Outpatient (REF) | payer MEDICARE, OTHER, SELFPAY ==
--- OUTSIDE RECORDS SUMMARY | 2025-08-28 09:33 | XMS_ITS | Clinical Summary ---
Author Organization [address] [facility] Address [address] [place] [address] Phone Care Team Providers Care Feather Baler Name Role Phone Flakita Calero MD Primary Care Provider Encounters Date Type Department Care Team Description 07/11/2025 Lab Requisition [facility] - Main Lab [address] [facility] [place] [address] Tylor Thomas MD Urinary tract infection, site not specified from Last 3 Months Surgical History Surgery Date Site/Laterality Comments NECK SURGERY PROCEDURE:NECK SURGERY SHOULDER SURGERY PROCEDURE:SHOULDER SURGERY Medical History Medical History Date Comments Diabetes mellitus ([facility]/HCC V24, CMS/HCC V28) DX:Diabetes mellitus (HCC) Hypertension [...] on file Sexual Orientation Not on file Plan of Treatment Health Maintenance Due Date [...] Screening 04/09/2024 Depression Screening 09/11/2024 COVID-19 Vaccine (2024-2 6 season) 2025 Influenza Vaccine (#1) 2025 [...] ssp pneumoniae(A) TIM 07/13/2025 11:23 AM EST [facility] Comment: This is an edited [...] MICROBIOLOGY - GENERA L ORDERABLES Final Result [facility] [address] [place] [address], from Last 3 Months Insurance MEDICARE [facility] [address] [place] [address] Care Teams Feather Baler Relationship Specialty Start Date End Date Flakita Calero MD [address] [place] [address] PCP - General 02/15/08
--- OUTSIDE RECORDS SUMMARY | 2025-08-28 09:33 | XMS_ITS | Encounter Summary ---
Author Organization [facility] Address [address] [place] [address] Care Team Providers Care Cook Chill Technician Name Role Phone Flakita Calero MD Primary Care Provider Encounter Details Date Type Department Care Team (Late st Contact Info) Description 07/11/2025 Lab Requisition [facility] - Main Lab [address] [place] [address] Tylor Thomas MD [address] [address] Urinary tract infection, site not [...] ssp pneumoniae(A) TIM 07/13/2025 11:23 AM EST [facility] Comment: This is an edited [...] MICROBIOLOGY - GENERA L ORDERABLES Final Result [facility] [address] [place] [address], documented in this encounter Visit Diagnoses Diagnosis Urinary tract infection, site not specified documented in this encounter Care Teams Cook Chill Technician Relationship Specialty Start Date End Date Flakita Calero MD [address] [place] [address] PCP - General 02/15/08 documented as of this encounter
--- OUTSIDE RECORDS SUMMARY | 2025-08-28 09:33 | XMS_ITS | Clinical Summary ---
Author Organization [facility] Prior to 02/08/[address] [place] [address] Care Team Providers Care Monitor Tech Name Role Phone Flakita Calero MD Primary Care Provider [phone] Allergies Active Allergy Reactions Criticality Noted Date [...] age to complete this topic Care Teams Monitor Tech Relationship Specialty Start Date End Date Flakita Calero MD [address] [facility] [place] [phone] PCP - General Internal Medicine 10/27/17
--- OUTSIDE RECORDS SUMMARY | 2025-08-28 09:33 | XMS_ITS | Patient Health Record ---
[facility] Address [address] [place] [address] Care Team Providers Care Welt Treater Name Role Phone Abdias QUIROZ, Flakita Bowens Primary Care Provider Un available Elena Mejia Unavailable [phone] Allergies Allergen (clinical drug ingredient) Drug/Non Drug [...] Problem Type II diabetes mellitus without complication (353048481) Type 2 diabetes mellitus without complications (E11.9) Active confirmed Problem Localized, primary osteoarthritis of the ankle and/or foot (660825712) Osteoarthritis of left ankle and foot (M19.072) Active confirmed Plan Of Treatment Pending Test Test Name Order Date X ray : Foot, left 3V 07/07/2021 [id number] NAIL, 1-5 06/06/2016 61157-Grpoaauy Plate 01/17/2017 [id number] Plate 05/23/2016 [id number] 06/13/2017 23511- Debride <25 sq cm 07/21/2015 69361- Debride <25 sq cm 07/11/2017 61221- Debride <25 sq cm 07/25/2017 [id number] SKIN/TISSUE 06/27/2017 [id number] I&D ABSCESS- SIMPLE,SINGLE 015 [id number] I&D ABSCESS- SIMPLE,SINGLE 015 Insurance Providers Payer Name Payer Address Payer Phone Subscriber Number Group Number Insured Name Patient Relationship to Insured Coverage Start Date Coverage End Date Medicare [employer] [address] [place] [phone] [id number] Ya Cameron Self - patient is the insured [facility] [address] [place] [address] [id number] Ya Cameron Self - patient is the [...]
== END ==
LOC: HO.CARD 08:52
PROVIDERS: PCP Internal Medicine; Visit Provider Internal Medicine Cardiovascular Disease
DX: R55 Syncope and collapse (principal)
CPT/HCPCS: 93306

== ENCOUNTER → 2025-08-28 09:02 | Outpatient (BNV) | payer MEDICARE, OTHER, SELFPAY | PROVIDERS: PCP Internal Medicine; Visit Provider Internal Medicine Cardiovascular Disease | DX: R93.1 Abnormal findings on diagnostic imaging of heart and coronary circulation (principal) | CPT/HCPCS: 93306 ==

== ENCOUNTER 2025-09-02 09:00 | Outpatient (REF) | payer MEDICARE, OTHER, SELFPAY ==
[2025-09-02 14:44] LABS: Resp Syncy Virus RNA Qual PCR NEGATIVE (Negative); SARS COV2 PCR INHOUSE NEGATIVE (Negative)
== END 2025-09-02 09:01 | disposition home or self-care (01) ==
LOC: HO.LAB 09:00
PROVIDERS: Physician Assistant Medical; PCP Internal Medicine
DX: R09.89 Other specified symptoms and signs involving the circulatory and respiratory systems (principal); R05.9 Cough, unspecified; Z03.818 Encounter for observation for suspected exposure to other biological agents ruled out
CPT/HCPCS: 87637

== ENCOUNTER 2025-09-02 09:00 | Outpatient (AMB) | payer MEDICARE, OTHER, SELFPAY ==
[2025-09-02 09:15] VITALS: BP 114/60; PULSE 98; TEMP 36.9; O2SAT 96; BMI 35.7
--- NOTE | 2025-09-02 09:15 | MHC.OFFWIV ---
Intake Vital Signs 09/02/25 09:15 Height 5 ft 2 in Weight 195 lb BMI 35.7 BP 114/60 Blood Pressure Location Lt brachial Position Sitting Pulse 98 Pulse Source Pulse Oximeter Temp 98.4 F Temp Source Oral Pulse Oximetry (%) 96 Oxygen Delivery Method Room Air Intake Visit Reasons: EP-sinus & chest issue, cough Intake Note: Patient presents c/o cough, SOB/wheezing, chest congestion x1 week. Patient Tobacco Use Status: Former Tobacco user Allergies capsaicin Adverse Reaction (Intermediate, Verified 09/02/25 09:17) Rash Iodinated Contrast Media (IV Contrast Dye) Adverse Reaction (Intermediate, Verified 09/02/25 09:17) Rash perflutren (From Definity) Adverse Reaction (Intermediate, Verified 09/02/25 09:17) Rash HPI HPI Comments History of Present Illness Details History - The patient is a 65-year-old female presenting with a severe sore throat that began one week ago. - She has had a fever for two nights, with a maximum temperature of 101?F. - Associated symptoms include a chest cough that is non-productive, a runny nose, and shortness of breath. - She denies any nausea, vomiting, or chest pain. - For her symptoms, the patient has been taking a store-brand equivalent of NyQuil at night but reports it is not helping. - She has not received her flu vaccine this year. - No one else is sick at her home, and she denies a history of smoking. - She denies CP, SOB, abd pain, or n/v/d. Physical Exam General: Cooperative, healthy appearing, comfortable and no acute distress Orientation/consciousness: Patient oriented x3 Limitations: No limitations Head: Normal to inspection Ears: Hearing grossly normal bilaterally, external ears normal and TM's normal bilaterally Nose: Normal external nose present, normal nares present. Face and sinus: Sinuses nontender to palpation. Mouth: Normal oral and palatal mucosa present and moist mucous membranes noted. Throat: Tonsils normal. Uvula is midline. Neck: Normal visual inspection, full ROM. No lymphadenopathy noted. Respiratory: Clear to auscultation bilaterally. Normal respiratory effort, able to speak in complete sentences. No respiratory distress, not tachypneic, no tripod positioning and no use of accessory muscles. Cardiovascular: Regular rate and rhythm. Normal S1 and S2. No m/r/g noted Skin: No rashes or lesions noted Patient was informed and verbally consented to the use of an ambient scribe for clinic note documentation during this visit [facility] Medical History Neurodermatitis Thyroid cancer Type 2 diabetes mellitus with hyperglycemia, without long-term current use of insulin Current use of motor tune up specialist anticoagulation Prolapse of female pelvic organs Prepatellar bursitis Generalized anxiety disorder COPD (chronic obstructive pulmonary disease) Depression, major, recurrent, in complete remission Herpes zoster Left shoulder tendinitis GERD (gastroesophageal reflux disease) Calcaneal spur of left foot Arthritis of first metatarsophalangeal (MTP) joint of left foot Deviated nasal septum History of pulmonary embolism Essential hypertension Dyslipidemia Surgical History History of esophagogastroduodenoscopy (EGD) H/O colonoscopy Hx of blepharoplasty Status post open reduction and internal fixation (ORIF) of fracture (~09/16/23) History of fusion of cervical spine Hx of left breast biopsy History of partial thyroidectomy History of shoulder surgery History of tubal ligation Family History Father Alcoholism Mother HTN (hypertension) Hyperlipidemia CVD (cardiovascular disease) Sister Hyperlipidemia Alcoholism Substance use disorder Brother No problems noted. Sister No problems noted. Sister No problems noted. Sister No problems noted. Daughter No problems noted. Daughter No problems noted. 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 Social History Household Members: Significant Other Household Members Other:: 2 Housing: Apartment Are you a primary care professional to a significant other at home: No Do you presently have visiting nurse or other home services: No Alcohol intake: current Alcohol intake frequency: holidays/special occasions only Comment: COUNTS CORRECT Patient Tobacco Use Status: Former Tobacco user Tobacco use type: Cigarette Years Smoked: 20 e-Cigarette/Vaping Use: Never Used Second Hand Smoke Exposure: No Advance Directives Date on File: 11/08/22 service: No Current occupational status: disabled Cognitive needs: No Hearing needs: No Vision needs: Yes Review of Systems Const All systems reviewed & are unremarkable except as noted in HPI and below Physical Exam Vital Signs: Last Vital Signs Temp 98.4 F 09/02/25 09:15 Pulse 98 09/02/25 09:15 BP 114/60 09/02/25 09:15 Pulse Ox 96 09/02/25 09:15 Oxygen Delivery Method Room Air 09/02/25 09:15 BMI result Body Mass Index 35.7 Assessment & Plan Assessment & Plan (1) Sore throat: Code(s): J02.9 - Acute pharyngitis, unspecified (2) Cough: Code(s): R05.9 - Cough, unspecified Plan Most likely Acute Upper Respiratory Infection vs covid vs flu vs RSV vs strep rapid was negative plan - Although streptococcal pharyngitis is less likely given the presence of a cough and oropharyngeal appearance, it will be ruled out. - Diagnostic testing will be performed, including swabs for COVID-19, influenza, RSV, and a strep culture. - Medication will be prescribed to manage symptoms. - tylenol or motrin as needed for pain or fever - diet as tolerated - will call with the results - Advised her to go to the ER if her symptoms worsen - follow up with PCP Orders: Orders SARS-CoV2/FLU/RSV Today R09.89 - Other specified symptoms and signs involving the circulatory and respiratory systems AMB Rapid Strep Screen Today J02.9 - Acute pharyngitis, unspecified Medications: New cetirizine-pseudoephedrine 5-120 mg ER 1 tab PO BID 14 tabs 0RF 7 days benzonatate 100 mg PO bid-tid PRN 21 caps 0RF Cough 7 days Coding Level of Care Code Est Pt Level 3 (91578) Diagnoses Sore throat J02.9 Cough R05.9
--- OUTSIDE RECORDS SUMMARY | 2025-09-02 09:30 | XMS_ITS | Clinical Summary ---
Author Organization [address] [facility] Address [address] [place] [address] Phone Care Team Providers Care Ring Sewer Name Role Phone Flakita Calero MD Primary Care Provider Encounters Date Type Department Care Team Description 07/11/2025 Lab Requisition [facility] - Main Lab [address] [facility] [place] [address] Tylor Thomas MD Urinary tract infection, site not specified from Last 3 Months Surgical History Surgery Date Site/Laterality Comments NECK SURGERY PROCEDURE:NECK SURGERY SHOULDER SURGERY PROCEDURE:SHOULDER SURGERY Medical History Medical History Date Comments Diabetes mellitus ([facility]/HCC V24, CMS/HCC V28) DX:Diabetes mellitus (HCC) [...] ssp pneumoniae(A) TIM 07/13/2025 11:23 AM EST [facility] Comment: This is an edited [...] MICROBIOLOGY - GENERA L ORDERABLES Final Result [facility] [address] [place] [address], from Last 3 Months Insurance MEDICARE [facility] [address] [place] [address] Care Teams Ring Sewer Relationship Specialty Start Date End Date Flakita Calero MD [address] [place] [address] PCP - General 02/15/08
--- OUTSIDE RECORDS SUMMARY | 2025-09-02 09:30 | XMS_ITS | Clinical Summary ---
Author Organization [facility] Prior to 02/08/[address] [place] [address] Care Team Providers Care Lozenge Maker Name Role Phone Flakita Calero MD Primary Care Provider [phone] Allergies Active Allergy Reactions Criticality Noted Date [...] age to complete this topic Care Teams Lozenge Maker Relationship Specialty Start Date End Date Flakita Calero MD [address] [facility] [place] [id number] PCP - General Internal Medicine 10/27/17
--- OUTSIDE RECORDS SUMMARY | 2025-09-02 09:30 | XMS_ITS | Patient Health Record ---
[facility] Address [address] [place] [address] Care Team Providers Care Event Specialist Product Demonstrator Name Role Phone Abdias QUIROZ, Flakita Bowens Primary Care Provider Un available Elena Mejia Unavailable [phone] Allergies Allergen (clinical drug ingredient) Drug/Non Drug [...] Problem Type II diabetes mellitus without complication (199352349) Type 2 diabetes mellitus without complications (E11.9) Active confirmed Problem Localized, primary osteoarthritis of the ankle and/or foot (074507701) Osteoarthritis of left ankle and foot (M19.072) Active confirmed Plan Of Treatment Pending Test Test Name Order Date X ray : Foot, left 3V 07/07/2021 [id number] NAIL, 1-5 06/06/2016 [id number] Plate 01/17/2017 [id number]-Xsrjeqvc Plate 05/23/2016 [id number] 06/13/2017 07431- Debride <25 sq cm 07/21/2015 60968- Debride <25 sq cm 07/11/2017 94004- Debride <25 sq cm 07/25/2017 [id number] SKIN/TISSUE 06/27/2017 28675 I&D ABSCESS- SIMPLE,SINGLE 015 [id number] I&D ABSCESS- SIMPLE,SINGLE 015 Insurance Providers Payer Name Payer Address Payer Phone Subscriber Number Group Number Insured Name Patient Relationship to Insured Coverage Start Date Coverage End Date Medicare National [employer] [address] [place] [address] [id number] Ya Cameron Self - patient is the insured [facility] [address] [place] [address] [id number] Ya Cameron Self - patient is the [...]
--- OUTSIDE RECORDS SUMMARY | 2025-09-02 09:30 | XMS_ITS | Data Portability ---
Author Organization [facility], PAIN OFFICE Address [address] [facility] [address] [place] [address] Care Team Providers Care Colorer Machine Name Role Phone LIZ LOPEZ Primary Care Provider SARAH CLAY Referring Provider [phone] Assessment Encounter Date Assessment Date Assessment LastModified [...] results of the imaging studies done at [facility]. [email or web address] Not available 12/29/2020 08:21:00 06/29/2021 06/29/2021 [...] By Organization Details Last Modified Time 12/28/2020 [id number] Telehealth visit: The patient was located at home for this telephone electronic visit and gave consent for this visit to be conducted via telehealth. 15 minutes was spent on this call and greater than 50% of the visit was spent on counseling and coordination of care [email or web address] Not available 12/29/2020 08:16:48 06/29/2021 [id number] She was advised against bed rest lasting longer than four days and to continue activities as tolerated. [email or web address] Not available 06/29/2021 13:50:55 08/09/2021 [id number] She was advised against bed rest lasting [...] care. [email or web address] Not available 08/09/2021 11:56:59 01/12/2022 [id number] She was advised against bed rest lasting longer than four days and to continue activities as tolerated. [email or web address] Not available 01/15/2022 10:55:55 01/24/2022 [id number] She was advised against bed rest lasting longer than four days and to continue activities as tolerated. [email or web address] Not available 01/24/2022 16:06:51 Reason for Referral None Reported. Problems Name Problem SNOMED Code Status Onset Date Resolution Date Notes Provider Name and Address Organization Details Recorded Time Degeneration of lumbar intervertebral disc [id number] Geovanna farfan MD [address] [facility] , [address], [place], [address], [place] [facility] 11:51:41 Lumbar radiculopathy 069923387 Geovanna farfan MD [address] , [address], [facility] [place], [address], [place] [facility] 9 11:53:15 Lumbosacral spondylosis without myelopathy 10676270 Active Jagruti farfan MD [address] [facility] , [address], [place], [address], [place] [facility] 9 11:53:34 Degeneration of cervical intervertebral disc 18318300 Active Jagruti farfan MD [address] [facility] , [address], [place], [address], [place] [facility] 09:02:31 Muscle pain 10459266 Active Jagruti farfan MD [address] [facility] , [address], [place], [address], [place] [facility] 09:02:41 Problem Notes None recorded. Procedures Surgical History Date Name Laterality Status Provider Name and Address Organization Details Recorded Time 01/25/20 22 Intra-articular shoulder steroid injection under ultrasound guidance completed Jagruti Elizabeth MD [address] [facility] , [address], [place], [address], [place] [facility] 01/24/2022 16:06:02 06/29/20 21 Lumbar Epidural steroid injection under fluoroscopic guidance completed Jagruti Elizabeth MD [address] [facility] , [address], [place], [address], [place] [facility] 06/29/2021 13:51:52 07/21/20 20 Lumbar Epidural steroid injection under fluoroscopic guidance completed Jagruti Elizabeth MD [address] [facility] , [address], [place], [address], [place] [facility] 07/21/2020 15:54:12 10/23/19 20 Lumbar Epidural steroid injection under fluoroscopic guidance completed Jagruti Elizabeth MD [address] [facility] , [address], [place], [address], [place] [facility] 10/23/2019 14:39:47 05/30/20 19 Trigger Point Injections under ultrasound guidance completed Jagruti Elizabeth MD [address] , [address], [place], [address], [place] [facility] 05/30/2019 13:31:49 05/15/20 19 Trigger Point Injections under ultrasound guidance completed Jagruti Elizabeth MD [address] [facility] , [address], [place], [address], [place] [facility] 05/15/2019 14:15:41 04/02/20 19 Lumbar Epidural steroid injection under fluoroscopic guidance completed Jagruti Elizabeth MD [address] [facility] , [address], [place], [address], [place] [facility] 04/03/2019 08:35:11 10/09/19 19 Lumbar Epidural steroid injection under fluoroscopic guidance completed Jagruti Elizabeth MD [address] [facility] , [address], [place], [address], [place] [facility] 10/09/2018 [...] Name and Address Organization Details Recorded Time 99028 Iodinated contrast media (substanc e) medicatio n rash Not available Not available 09/14/2018 89573 2004 SNOMED < great er 20 years [...] Recorded Body height Heart rate Oxygen saturation Systolic And Diastolic Provider Name and Address Organization Details Last Updated DateTime 01/12/2022 157.48 cm 79 /min 98 % 149/75 mm[Hg] Eden Mcmullen [place] - [facility] 01/12/2022 14:01:32 Date Recorded Body height Body mass index (BMI) Body weight Heart rate Oxygen saturation Pain severity - 0-10 verbal numeric rating [Score] - Reported Systolic And Diastolic Provider Name and Address Organization Details Last Updated DateTime 05/16/202 2 157.48 cm 36.4 kg/m2 15845.8 8 g 80 /min 94 % 10 162/81 mm[Hg] Jagruti farfan MD [address] , [address], [place], [address], [place] [facility] 2 11:23:01 Date Recorded Body height Body mass index (BMI) Body weight Heart rate Oxygen saturation Systolic And Diastolic Provider Name and Address Organization Details Last Updated DateTime 1 157.48 cm 36.4 kg/m2 37635.8 8 g 84 /min 96 % 121/75 mm[Hg] Eden Zepedawell [place] - [facility] 1 10:30:30 Date Recorded Body height Provider Name an d Address Organization Details Last Updated DateTime 08/09/2021 157.48 cm Jagruti Elizabeth MD [address] , [address], [place], [address], [place] [facility] 08/09/2021 11:57:31 Social History Question Answer Notes LastModified by [employer] Details LastModified Time Tobacco Smoking Status Former Smoker quit x 12 years Not Available [employer] 06/26/2020 03:16:11 Which Illicit Or Recreational Drugs Have You Used? No [id number] Information not available 06/26/2020 Education 12 Information no t available 09/14/2018 Live Alone Or With Others? With Others Information not available 09/14/2018 Marital Status Informatio n not available 09/14/2018 What Was The Date Of Your Most Recent Tobacco Screening? 03/27/2019 [id number] Information not available 06/26/2020 How Many Years Have You Smoked Tobacco? 20 [id number] Information not available 06/26/2020 Sex: Unknown Functional Status Question Answer Note LastModified by [employer] Details LastModified Time What is your level of alcohol consumption? Occasional [id number] Information not available 06/26/2020 Are you currently employed? No [id number] Information not available 06/26/2020 What is your [...] ICD10 Code Diagnosis IMO Codes Diagnosis Note [id number] Jagruti Elizabeth MD PAIN OFFICE [address] [place] [address] 09/14/2018 09:20:14 09/14/2018 12:05:18 Lumbosacral spondylosis without myelopathy 96915293 M47.817 Lumbar radiculopathy 128 972703 M54.16 Degenerati on of lumbar intervertebral disc 82770028 M51.36 19647 Jagruti Elizabeth MD PAIN OFFICE [address] [place] [address] 10/09/2018 08:54:37 10/09/2018 10:59:45 Lumbosacral spondylosis without myelopathy 79659017 M47.817 Lumbar radiculopathy 128 376833 M54.16 Degenerati on of lumbar intervertebral disc 89858520 M51.36 05640 Jagruti Elizabeth MD PAIN OFFICE [address] [place] [address] 11/08/2018 08:45:11 11/08/2018 11:03:12 Lumbosacral spondylosis without myelopathy 26818906 M47.817 Lumbar radiculopathy 128 080018 M54.16 Degenerati on of lumbar intervertebral disc 83550733 M51.36 36573 Jagruti Elizabeth MD PAIN OFFICE [address] [place] [address] 03/26/2019 13:44:21 03/27/2019 16:06:04 Lumbosacral spondylosis without myelopathy 10563583 M47.817 Lumbar radiculopathy 128 824580 M54.16 Degenerati on of lumbar intervertebral disc 00029892 M51.36 22059 Jagruti Elizabeth MD PAIN OFFICE [address] [place] [address] 04/02/2019 14:22:38 04/03/2019 11:57:34 Lumbosacral spondylosis without myelopathy 25699135 M47.817 Lumbar radiculopathy 128 229570 M54.16 Degenerati on of lumbar intervertebral disc 59396542 M51.36 35884 Jagruti Elizabeth MD PAIN OFFICE [address] [place] [address] 05/06/2019 10:21:08 05/15/2019 11:02:55 Degeneration of cervical intervertebral disc 94196742 M50.30 Muscle pain 84032990 M79 .18 Degenerati on of lumbar intervertebral disc 60737669 M51.36 Lumbar radiculopathy 128 M54.16 Lumbosacra l spondylosis without myelopathy 71151492 M47.817 84483 Jagruti Elizabeth MD PAIN OFFICE [address] [place] [address] 05/15/2019 13:13:23 05/15/2019 14:18:15 Degeneration of cervical intervertebral disc 80827040 M50.30 Muscle pain 17344708 M79 .18 Degenerati on of lumbar intervertebral disc 46079604 M51.36 Lumbar radiculopathy 128 M54.16 Lumbosacra l spondylosis without myelopathy 14489233 M47.817 55256 Jagruti Elizabeth MD PAIN OFFICE [address] [place] [address] 05/30/2019 12:55:57 05/30/2019 13:33:51 Degeneration of cervical intervertebral disc 31615733 M50.30 Muscle pain 97645403 M79 .18 Degenerati on of lumbar intervertebral disc 63570287 M51.36 Lumbar radiculopathy 128 513840 M54.16 Lumbosacra l spondylosis without myelopathy 62763079 M47.817 34210 Jagruti Elizabeth MD [facility] PAIN OFFICE [address] [facility] [place] [address] 06/12/2019 11:37:11 06/24/2019 16:57:19 Degeneration of cervical intervertebral disc 04411626 M50.30 Muscle pain 66379565 M79 .18 Degenerati on of lumbar intervertebral disc 26556665 M51.36 Lumbar radiculopathy 128 846464 M54.16 Lumbosacra l spondylosis without myelopathy 32903986 M47.817 04007 Jagruti Elizabeth MD PAIN OFFICE [address] [place] [address] 10/23/2019 13:52:47 10/23/2019 14:42:33 Lumbosacral spondylosis without myelopathy 85005383 M47.817 Lumbar radiculopathy 128 164738 M54.16 Degenerati on of lumbar intervertebral disc 41519157 M51.36 67562 Jagruti Elizabeth MD PAIN OFFICE [address] [facility] [place] [address] 06/30/2020 08:32:55 06/30/2020 08:45:50 Lumbosacral spondylosis without myelopathy 81873448 M47.817 Lumbar radiculopathy 128 252295 M54.16 Degenerati on of lumbar intervertebral disc 62824171 M51.36 25356 Jagruti Elizabeth MD PAIN OFFICE [address] [place] [address] 07/21/2020 15:28:07 07/21/2020 15:57:40 Lumbosacral spondylosis without myelopathy 90397288 M47.817 Lumbar radiculopathy 128 671530 M54.16 Degenerati on of lumbar intervertebral disc 40026077 M51.36 11650 Jagruti Elizabeth MD [facility] PAIN OFFICE [address] [employer] [facility] [place] [address] 08/17/2020 09:19:36 08/17/2020 09:24:43 Lumbosacral spondylosis without myelopathy 71347053 M47.817 Lumbar radiculopathy 128 207206 M54.16 Degenerati on of lumbar intervertebral disc 01947167 M51.36 67601 Jagruti Elizabeth MD [facility] PAIN OFFICE [address] [facility] [place] [address] 12/28/2020 15:16:05 12/29/2020 08:21:36 Muscle pain 64167466 M79.18 30753 Jagruti Elizabeth MD [facility] PAIN OFFICE [address] [place] [address] 06/29/2021 10:22:54 06/29/2021 13:59:36 Lumbosacral spondylosis without myelopathy 35368374 M47.817 Lumbar radiculopathy 128 911652 M54.16 Degenerati on of lumbar intervertebral disc 75426132 M51.36 13493 Jagruti Elizabeth MD [facility] PAIN OFFICE [address] [place] [address] 08/09/2021 11:55:52 08/09/2021 13:16:05 Lumbosacral spondylosis without myelopathy 52846669 M47.817 Lumbar radiculopathy 128 696921 M54.16 Degenerati on of lumbar intervertebral disc 67497322 M51.36 02646 Jagruti Elizabeth MD [facility] PAIN OFFICE [address] [place] [address] 01/12/2022 13:35:53 01/15/2022 10:59:14 Inflammation of joint of shoulder region 120866745 M13.819 Subacromia l bursitis of left shoulder 7989947711 289357 M75.52 08281 Jagruti Elizabeth MD [facility] PAIN OFFICE [address] [place] [address] 01/24/2022 11:13:47 01/24/2022 16:09:39 Inflammation of joint of shoulder region 362725175 M13.819 Subacromia l bursitis of left shoulder 4414360178 747066 M75.52 Health Concerns Section Related Observation LastModified by Organization Detai ls LastModified Time None Recorded Concern Status LastModified by Organization Details LastModified Time None Recorded Advance Directives Directive None Recorded Payers Insurance Date Sequence Insurance Name Policy Number Policy Orta Covered Member ID Orta Member ID Guarantor Name 06/27/2022 1 [facility] aY Cameron [id number] Ya Cameron 11/21/2022 2 [facility] [id number] Ya Cameron [id number] Ya Cameron 06/27/2022 1 [facility] Ya Cameron [id number] Ya Cameron 11/21/2022 1 [place]: [employer] [facility] Ya Cameron [id number] Ya Cameron Notes Date Note Type Note [...] bladder or bowel incontinence.She was seen at [facility] and had imaging done. Results are not available today. Jagruti Elizabeth MD [address] [facility] , [facility] [address], [place], [address], [facility] - Pain Management 12/30/2020 08:57:28 06/29/2021 text/html She is here for a lumbar epidural steroid injection under fluoroscopic guidance. She had a fall in [facility] and has been having an exacerbation of her pain. She was seen at [facility]. No recent X-rays. Jagruti Elizabeth MD [address] [facility] , [address], [place], [address], [place] [facility] 06/30/2021 08:52:14 08/09/2021 text/html This is a follow up after a lumbar epidural steroid injection under fluoroscopic guidance. She reports 70-80% pain benefit which is ongoing. She has stiffness in the morning which improves with stretching. She is walking better . Jagruti Elizabeth MD [address] [facility] , [address], [place], [address], [facility] Management 08/11/2021 09:15:50 01/12/2022 text/html She is here for a follow up. She was last seen on 07/01 for a lumbar epidural steroid injection under fluoroscopic guidance. She reports good pain benefit. She is complaining of left shoulder pain . She has seen Dr. Rodriguez , orthopedic surgeon at [facility] for her pain. He recommend a left shoulder steroid injection under ultrasound guidance. She has been having shoulder pain for the past five years . She is having a difficult time lifting her arm over her head.MRI left shoulder shows mild supraspinatus tendonitis and minimal distal inferior spinatus calcific tendonitis. Mild glenohumeral arthritis. Jagruti Elizabeth MD [address] [facility] , [address], [place], [address], [facility] Pain Management 01/15/2022 11:05:58 01/24/2022 text/html She is here for a left shoulder steroid injection under ultrasound guidance Jagruti Elizabeth MD [address] [facility] , [address], [place], [address], [facility] Pain Management 01/24/2022 16:37:45 OBGyn Episode No OBEpisode recorded.
--- OUTSIDE RECORDS SUMMARY | 2025-09-02 09:30 | XMS_ITS | Data Portability ---
Author Organization [place] [facility] [place] Address [address] [place] [address] Care Team Providers Care Resident Surgeon Name Role Phone LIZ LOPEZ Primary Care [...] Left Knee Pain 2022 023 [facility], [address], [place], [address], 3 15:18:58 XR, knee, 1 or 2 view - Right Knee Pain 2022 023 [facility], [address], [place], [address], 3 15:18:58 XR, knee, weightbeari ng - Bilateral Knee Pain 2022 023 [facility], [address], [place], [address], 3 15:18:58 Medication Orders Kenalog 40 mg/mL suspension for injection 2022 023 [facility], [address] [place] [address], [address], 08:52:19 lidocaine (PF) 10 mg/mL (1 %) injection solution 2022 023 [place] [address] [facility], [address] [place] [address], [address], 08:52:23 Bactrim DS 800 mg-160 mg tablet 2022 023 [place] [address] [facility], [address] [place] [address], [address], 08:52:34 lidocaine (PF) 10 mg/mL (1 %) injection solution 2022 023 [place] [address] [facility], [address] [place] [address], [address], 08:52:23 Patient TargetsNo targets recorded. Patient Instructions Encounter Date Encounter Id Patient Instructions Last Modified By Organization Details Last Modified Time 04/27/2023 [id number] X-rays of both knees reveal overall well-maintained joint space with mild degenerative change without acute bony abnormality. Normal bone mineralization no obvious soft tissue findings are observed. Not available 04/28/2023 08:16:44 05/11/2023 [id number] You have been provided with a cortisone [...] Recorded Time Arthritis of right knee joint 24033172817 75984 Active 2017 Arthritis of right knee Not Available [facility] 5 23:03:55 Subacromi al bursitis of left shoulder 45925441866 44059 Active 2019 Subacromi al bursitis of left shoulder joint Not Available [facility] 5 23:03:56 Impingeme nt syndrome of left shoulder region 78263432529 9104 Active 2019 Impingeme nt syndrome of left shoulder region Not Available [facility] 5 23:03:56 Carpal tunnel syndrome of left wrist 02799974805 02 Active 2019 Left carpal tunnel syndrome Not Available [facility] 5 23:03:54 Carpal tunnel syndrome of right wrist 07326495202 9108 Active 2019 Right carpal tunnel syndrome Not Available [facility] 5 23:03:55 Cervical radiculop athy 12594410 Active 2019 Possible cervical radiculop athy Not Available [facility] 5 23:03:56 Bilateral carpal tunnel syndrome 54921247130 167707 Active 2019 Possible bilateral carpal tunnel syndrome Not Available [facility] 5 23:03:55 Prepatell ar bursitis of left knee 67817799025 9103 Active 2022 VIOLETTE CORRALES PA-C [address], [place], [address] , [place] [facility] 3 14:06:33 Osteoarth ritis of left knee joint 26122471456 9109 Active 2022 VIOLETTE CORRALES PA-C [address], [place], [address] , [place] [facility] 3 10:10:06 Synovial cyst of right knee 80734223557 9104 Active 2022 VIOLETTE CORRALES PA-C [address], [place], [address] , [place] [facility] 3 09:39:52 Problem Notes None recorded. Procedures Surgical History Date Name Laterality Status Provider Name and Address Organization Details Recorded Time 05/11/2023 Knee Joint/Burs a Asp & Inj completed VIOLETTE CORRALES PA-C [address], [place], [address], [place] [facility] 05/11/2023 10:07:19 04/27/2023 Knee Joint/Burs a Asp & Inj completed VIOLETTE CORRALES PA-C [address], [place], [address], [place] [facility] 04/28/2023 08:13:06 Knee arthroscop y/surgery completed [facility] 04/27/2023 13:25:28 Imaging Results None recorded. Procedure Notes None recorded. Medical Equipment None Reported. Allergies Allergen ID Allergen Name Allergen Category Reaction Reaction Severity Criticality Documentation Date Start Date Code Code System Note Provider Name and Address Organization Details Recorded Time 7279 Iodinated contrast media (substanc e) medicatio n Not available Not available Not available 04/27/2023 89109 2003 SNOMED [place], [place] [facility] 3 13:24:08 Medications Name Sig Start [...] Updated DateTime 04/27/2023 157.48 cm 36.4 kg/m2 15883.88 g [facility], 04/27/2023 13:24:24 Date Recorded Body height Provider Name an d Address Organization Details Last Updated DateTime 08/10/2023 157.48 cm [facility], 08/10/2023 08:53:04 Social History None recorded. [...] ICD10 Code Diagnosis IMO Codes Diagnosis Note [id number] [facility] [address] [address] 04/27/2023 12:51:19 04/27/2023 14:11:04 Pain of left knee joint 3258347253 92899 M25.562 Pain of ri ght knee joint 1556449082 51714 M25.561 Pain of bi lateral knee joints 6314838926 66105 M25.561 Prepatella r bursitis of left knee 0475000123 94303 M70.42 65349 CURT CALHOUNfie ld [address] [facility] [address] [place] [address] 05/11/2023 09:12:00 05/11/2023 10:08:57 Osteoarthritis of left knee joint 4233921414 08947 M17.12 13243 CURT CALHOUN [facility] [address] [facility] [address] [place] [address] 08/10/2023 08:41:03 08/10/2023 09:56:06 Synovial cyst of right knee 7384732866 51263 M71.21 Health Concerns Section Related Observation LastModified by Organization Detai ls LastModified Time None Recorded Concern Status LastModified by Organization Details LastModified Time None Recorded Advance Directives Directive None Recorded Payers Insurance Date Sequence Insurance Name Policy Number Policy Orta Covered Member ID Orta Member ID Guarantor Name 02/16/2024 1 MEDICARE B-[place]: [employer] [facility] [id number] [facility] 04/05/2024 2 [facility] [id number] 2 [facility] [id number] [facility] Notes Date Note Type Note Provider [...] evaluation and treatment. VIOLETTE CORRALES PA-C [address], [address], [place] [facility] 06/07/2023 13:07:40 05/11/2023 text/html Assessment & [...] since she is going on vacation. VIOLETTE CORRLAES PA-C [address], [address], [place] [facility] 05/11/2023 10:11:00 08/10/2023 text/html 63-year-old female [...] shortness of breath. VIOLETTE CORRALES PA-C [address] [facility] [address], [place], [address], [place] [facility] 08/10/2023 09:40:52 OBGyn Episode No OBEpisode recorded.
--- OUTSIDE RECORDS SUMMARY | 2025-09-02 09:30 | XMS_ITS | Encounter Summary ---
Author Organization [facility] Address [address] [place] [address] Care Team Providers Care Poultry Processing Supervisor Name Role Phone Flakita Calero MD Primary Care Provider Encounter Details Date Type Department Care Team (Late st Contact Info) Description 07/11/2025 Lab Requisition [facility] - Main Lab [address] [place] [address] Tylor Thomas MD [address] [address] Urinary tract infection, site not [...] ssp pneumoniae(A) TIM 07/13/2025 11:23 AM EST [facility] Comment: This is an edited result. [...] MICROBIOLOGY - GENERA L ORDERABLES Final Result [facility] [address] [place] [address], documented in this encounter Visit Diagnoses Diagnosis Urinary tract infection, site not specified documented in this encounter Care Teams Poultry Processing Supervisor Relationship Specialty Start Date End Date Flakita Calero MD [address] [place] [address] PCP - General 02/15/08 documented as of this encounter
== END 2025-09-02 09:50 | disposition home or self-care (01) ==
PROVIDERS: PCP Internal Medicine; Visit Provider Physician Assistant Medical
DX: J02.9 Acute pharyngitis, unspecified (principal); R05.9 Cough, unspecified

== ENCOUNTER 2025-09-05 11:38 | Emergency (ER) | payer MEDICARE, OTHER, SELFPAY ==
--- NOTE | ~2025-09-05 | XR_ITS ---
EXAMINATION: XR CHEST 2 VIEWS HISTORY: cough COMPARISON: Comparison is made with the prior examination dated 06/27/2025. FINDINGS: PA and lateral views of the chest are submitted. An implantable loop recorder is noted in the left anterior chest wall. The lungs are expanded and clear. There is no pleural effusion, pneumothorax, or pulmonary vascular congestion. The heart is normal in size. The bones are intact. The patient is status post lower cervical fusion. XR/XR chest 2V IMPRESSION: No acute cardiopulmonary abnormality. Electronically signed by: Jose Jeffery MD 09/05/2025 12:37 PM EST
[2025-09-05 11:49] VITALS: BP 162/72; PULSE 103; RESP 20; TEMP 36.1; O2SAT 96; BMI 35.0
--- NOTE | 2025-09-05 11:49 | ED_ITS ---
HPI - General Adult General Chief complaint: Upper Respiratory Symptoms Stated complaint: Loss of Voice, Dizziness, Coughing Time Seen by Provider: 09/05/25 14:28 Source: patient and family (patient's daughter) Mode of arrival: ambulatory Limitations: no limitations History of Present Illness ED Provider: Audrey Ogden PA-C HPI narrative: Patient is a 65 year old female with a history of DVT on anti-coagulation therapy, DM, MARY, and HTN presenting to the emergency department today with continued cough. Patient states that she was seen in the urgent care a few days ago and told she has influenza. Patient states that she continues to have the cough and feel generally unwell. Patient denies any other complaints at this time. Related Data Home Medications ?Medication ?Instructions ?Recorded ?Confirmed cetirizine 10 mg tablet 10 mg PO QAM 02/13/23 tolterodine 4 mg capsule,extended 4 mg PO BEDTIME 05/1207/18/25 release 24 hr buspirone 5 mg tablet 5 mg PO BID 07/18/25 5 Previous Rx's ?Medication ?Instructions ?Recorded amlodipine 5 mg tablet 5 mg PO QAM #90 tabs 5 cyanocobalamin (vitamin B-12) 1,000 mcg PO DAILY #90 t abs 03/31/25 1,000 mcg tablet (Vitamin B-12) apixaban 5 mg tablet (Eliquis) 5 mg PO BID #60 tabs ondansetron HCl 4 mg tablet 4 mg PO Q8H PRN nausea and 04/20/25 vomiting #14 tabs metformin 500 mg tablet 500 mg PO BEDTIME #180 tabs 05/04/25 omeprazole 40 mg capsule,delayed 40 mg PO BEDTIME Hear tburn 05/07/25 release symptoms #90 caps atorvastatin 40 mg tablet 40 mg PO BEDTIME #90 tabs fluoxetine 20 mg capsule 40 mg (2 x 20 mg) PO QAM #60 caps 07/02/25 Mounjaro 2.5 mg/0.5 mL 2.5 mg (0.5 mL) subcut QWEEK #2 mL 07/08/25 subcutaneous pen injector (tirzepatide) trazodone 100 mg tablet 100 mg PO BEDTIME #30 caps 1 10/03/24 benzonatate 100 mg capsule 100 mg PO bid-tid PRN Cough 7 days 09/02/25 #21 caps cetirizine 5 mg-pseudoephedrine ER 1 tab PO BID 7 days #14 tabs 09/02/25 120 mg tablet,extended release,12hr prednisone 20 mg tablet 40 mg (2 x 20 mg) PO DAILY C OPD 09/05/25 exacerbation 5 days #10 tabs Allergies Allergy/AdvReac Type Severity Reaction Status Date / Time capsaicin AdvReac Intermediate Rash Verified 09/05/25 11:53 Iodinated Contrast Media (IV AdvReac Intermediate Rash Verified 09/05/25 11:53 Contrast Dye) perflutren (From Streem) AdvReac Intermediate Rash Verified 09/05/25 11:53 Review of Systems 2 Constitutional: Constitutional: Reports as per HPI Eyes: Eyes: Reports as per HPI ENT: Reports as per HPI Cardiovascular: Cardiovascular: Reports as per HPI Respiratory: Respiratory: Reports as per HPI Gastrointestinal: Gastrointestinal: Reports as per HPI Genitourinary: Genitourinary: Reports as per HPI Musculoskeletal: Musculoskeletal: Reports as per HPI Integumentary/Breasts: Skin/Breast: Reports as per HPI Neurologic: Reports as per HPI Psychiatric: Psychiatric: Reports as per HPI Endocrine: Endocrine: Reports as per HPI Hematologic/Lymphatic: Hematologic/Lymphatic: Reports as per HPI Allergic/Immunologic: Allergic/Immunologic: Reports as per HPI PMF Past Medical History Attestation statement: The following information was validated with the patient. (all information validated with the patient's daughter) Source: old records reviewed, obtained from family (patient's daughter provided additional history and confirmed the history provided by the patient. ) and nursing notes reviewed Medical History Neurodermatitis Thyroid cancer Type 2 diabetes mellitus with hyperglycemia, without long-term current use of insulin Current use of alf anticoagulation Prolapse of female pelvic organs Prepatellar bursitis Generalized anxiety disorder COPD (chronic obstructive pulmonary disease) Depression, major, recurrent, in complete remission Herpes zoster Left shoulder tendinitis GERD (gastroesophageal reflux disease) Calcaneal spur of left foot Arthritis of first metatarsophalangeal (MTP) joint of left foot Deviated nasal septum History of pulmonary embolism Essential hypertension Dyslipidemia Surgical History History of esophagogastroduodenoscopy (EGD) H/O colonoscopy Hx of blepharoplasty Status post open reduction and internal fixation (ORIF) of fracture (~09/16/23) History of fusion of cervical spine Hx of left breast biopsy History of partial thyroidectomy History of shoulder surgery History of tubal ligation Family History Family History Father Alcoholism Mother HTN (hypertension) Hyperlipidemia CVD (cardiovascular disease) Sister Hyperlipidemia Alcoholism Substance use disorder Brother No problems noted. Sister No problems noted. Sister No problems noted. Sister No problems noted. Daughter No problems noted. Daughter No problems noted. 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 Social History Social History Household Members: Significant Other Household Members Other:: 2 Housing: Apartment Are you a primary day care attendant to a significant other at home: No Do you presently have visiting nurse or other home services: No Alcohol intake: current Alcohol intake frequency: holidays/special occasions only Comment: COUNTS CORRECT Patient Tobacco Use Status: Former Tobacco user Tobacco use type: Cigarette Years Smoked: 20 e-Cigarette/Vaping Use: Never Used Second Hand Smoke Exposure: No Advance Directives Date on File: 11/08/22 service: No Current occupational status: disabled Cognitive needs: No Hearing needs: No Vision needs: Yes Physical Exam ED Vital Signs: Vital Signs - 24 hr 09/05/25 11:49 09/05/25 14:49 09/05/25 16:45 Temperature 96.9 F 98.7 F Pulse Rate 103 H 99 84 Respiratory Rate 20 18 18 Blood Pressure 162/72 H 163/82 H 140/79 H Pulse Oximetry 96 97 95 Oxygen Delivery Method Room Air Room Air Room Air BMI result Body Mass Index 35.0 Const General: cooperative, no acute distress, alert and awake Nutritional Appearance: well nourished Orientation/consciousness: patient oriented x3 HENMT Head: Yes normal to inspection and Yes atraumatic Ears: hearing grossly normal bilaterally and external ears normal General nose exam: Normal external nose present, no nasal discharge noted and no epistaxis Face and sinus: Yes normal facial exam, No abrasion and No laceration Mouth: Normal oral and palatal mucosa present, no drooling and no muffled voice Eyes General: appearance normal, both eyes and all related structures Periorbital: periorbital findings normal Eyelids: Yes eyelids normal Conjunctivae: conjunctivae normal Pupils: Equal, round and reactive pupils present EOM: EOMs intact bilaterally Neck Neck: Yes normal visual inspection and Yes full ROM Resp Effort & Inspection: normal respiratory effort and able to speak in complete sentences Neuro General: patient oriented x3, moves all extremities and CN's II-XI intact bilaterally Cranial nerves: Yes Equal, round and reactive pupils present Cognition (Neuro): normal cognition Extrem General: Yes normal to inspection, Yes full ROM and Yes capillary refill normal Psych Appearance: grossly normal Mental Status: mental status grossly normal Affect: normal affect Attitude: cooperative Thought process: Normal thought process present Thought content: Normal thought content present Insight: Good insight present (Psych) Course Course Course Narrative: This is a Rapid Medical Exam performed in triage by Antonia Ashford PA-C. Full HPI, ROS and PE to be performed by primary ED provider. 65-year-old female with a past medical history HTN, HLD, GERD, thyroid CA with partial thyroidectomy, DM presenting to the ED c/o dry cough, sore throat x1 week. +fevers last week. Admits to CP w/coughing PE: hoarse voice, +coughing during eval. No appreciable wheezing Plan: SARs, rapid strep, CXR, labs Medications Administered Discontinued Medications Generic Name Dose Route Start Last Admin Trade Name Freq PRN Reason Stop Dose Admin Methylprednisolone Sodium Succinate 60 mg 09/05/25 14:35 09/05/25 14:50 Methylprednisolone Sod Succ 125 Mg/2 Ml Vial IVPUSH 09/05/25 14:36 60 mg ONCE ONE Administration Potassium Chloride 40 meq 09/05/25 14:29 09/05/25 14:50 Potassium Chloride Er 20 Meq Tab.Er.Prt PO 09/05/25 14:30 40 meq ONCE ONE Administration Potassium Chloride 40 meq 09/05/25 14:29 09/05/25 14:50 Potassium Chloride Packet 20 Meq Packet PO 09/05/25 14:30 40 meq ONCE ONE Administration Medical Decision Making Medical Decision Making MDM Narrative: Patient is a 65 year old female with a history of DVT on anti-coagulation therapy, DM, MARY, and HTN presenting to the emergency department today with continued cough. Patient's physical exam was as noted in the physical exam portion of this note. Patient's blood work showed an initial potassium of 2.9 but otherwise unremarkable. Patient's EKG showed no obvious evidence of arrhythmia, ischemia, or infarct. Patient's chest x-ray showed no acute process. Patient was given PO potassium for a total of 80meq. Patient's CMP was repeated and her potassium normalized at 3.6. Patient's influenza test was positive. I explained my physical exam findings as well as all test results to the patient and the patient's daughter. I answered all questions asked by the patient and the patient's daughter. I stressed the importance of the patient taking her medication as directed (either prescribed or as the over the counter packaging recommends). I stressed the importance of the patient following up with her primary care provider. I stressed the importance of the patient returning to the emergency department immediately if her symptoms were to worsen or if she were to develop any dizziness, shortness of breath, difficulty breathing, chest pain, blurry vision, loss of vision, nausea, vomiting, abdominal pain, fever, chills, back pain, or any other complaints. Patient and the patient's daughter verbalized agreement and understanding with this treatment plan and discharge. Differential Diagnosis Differential Diagnoses: The differential diagnosis associated with the presentation includes Influenza Hypokalemia Cough PNA Admission/Observation Consideration of admission/observation: Escalation of care including admission/observation considered Patient would have been admitted to the hospital had her work up had any findings where hospital admission was appropriate and her clinical presentation warranted hospital admission. Lab Data [facility] Lab Attestation statement: I reviewed the patient's lab results. My interpretation of these results are in the MDM Rationale portion of this note. 09/05/25 12:19 09/05/25 16:44 Labs: Lab Results 09/05/25 09/05/25 Range/Units 12:19 16:44 WBC 6.1 (4.8-10.8) X10*3/uL RBC 4.69 (4.20-5.50) X10*6/uL Hgb 13.2 (12.0-16.0) g/dl Hct 39.6 (37.0-47.0) % MCV 84.4 (80.0-98.0) fL MCH 28.1 (27.0-33.0) pg MCHC 33.3 (31.0-35.0) g/dl RDW 14.5 (11.0-16.0) % Plt Count 275 (160-400) X10*3/uL MPV 9.3 L (9.4-12.3) fL Immature Gran % (Auto) 0.3 (0.0-0.4) % Neut % (Auto) 40.8 L (45-73) % Lymph % (Auto) 50.8 H (20-40) % Rawlins % (Auto) 6.8 (2-11) % Eos % (Auto) 1.0 (0-4) % Baso % (Auto) 0.3 (0-2) % Lymph # (Auto) 3.1 (1.2-4.9) X10*3/uL Rawlins # (Auto) 0.4 (0.1-1.2) X10*3/uL Eos # (Auto) 0.1 (0.0-0.4) X10*3/uL Baso # (Auto) 0.0 (0.0-0.2) X10*3/uL Abs Immat Gran (auto) 0.02 (0.00-0.03) X10*3/uL Absolute Neuts (auto) 2.5 (2.0-8.3) x10*3/uL Absolute Nucleated RBC 0.000 (0.0-0.012) X10*3/uL Nucleated RBC % (auto) 0.0 (0.0-0.2) /100WBC Smear Tech's Comments VERIFIED Sodium 141 140 (135-145) mmol/L Potassium 2.9 L* D 3.6 D (3.3-5.1) mmol/L Chloride 103 104 (96-108) mmol/L Carbon Dioxide 26 26 (22-29) mmol/L Anion Gap 15 14 (12-20) BUN 7 L 8 L (9-16) mg/dL Creatinine 0.87 0.85 (0.5-1.4) mg/dL Estim Creat Clear Calc 66.8 68.3 Estimated GFR > 60 > 60 Random Glucose 120 H 102 (60-115) mg/dL Calcium 9.4 9.0 (8.4-10.2) mg/dL Magnesium 1.7 (1.6-2.6) mg/dL Total Bilirubin 0.6 0.5 (0.0-1.0) mg/dL Direct Bilirubin 0.3 (0.0-0.5) mg/dL AST 36 H 38 H (5-31) U/L ALT 21 19 (0-31) U/L Alkaline Phosphatase 105 96 (39-117) U/L Total Protein 7.8 7.3 (6.5-8.0) g/dL Albumin 4.4 4.1 (3.5-5.0) g/dL Influenza Type A (PCR) POSITIVE A (Negative) Influenza Type B (PCR) NEGATIVE (Negative) RSV RNA Qual (PCR) NEGATIVE (Negative) SARS-CoV-2 RNA (RT-PCR) NEGATIVE (Negative) S. pyogenes GrpA YOGESH Negative (Negative) Independent Interpretation I performed an independent interpretation of an: EKG and Plain X-Ray Interpretation: My interpretation is in agreement with the radiologist's impression of this imaging study as written below. EXAMINATION: XR CHEST 2 VIEWS HISTORY: cough COMPARISON: Comparison is made with the prior examination dated 06/27/2025. FINDINGS: PA and lateral views of the chest are submitted. An implantable loop recorder is noted in the left anterior chest wall. The lungs are expanded and clear. There is no pleural effusion, pneumothorax, or pulmonary vascular congestion. The heart is normal in size. The bones are intact. The patient is status post lower cervical fusion. XR/XR chest 2V IMPRESSION: No acute cardiopulmonary abnormality. Electronically signed by: Jose Jeffery MD 09/05/2025 12:37 PM [facility] Dictated By: Jose Jeffery MD Signed By: Electronically signed by Jose Jeffery MD 09/05/25 1237 I independently interpreted this EKG and am in agreement with the below findings: Vent. Rate: 81 BPM Atrial Rate: 81 BPM P-R Int: 170 ms QRS Dur: 84 ms QT Int: 420 ms P-R-T Axes: 83 3 52 degrees QTcB Int: 487 ms Normal sinus rhythm When compared with ECG of 17-Jun-2025 17:13, Premature ventricular complexes are no longer Present 09/05/25 1513 Radiology Impression Discussion of test interpretation with radiology: I have reviewed the radiologist's reading. Independent Historian Clinical information obtained from an independent historian. History obtained from or confirmed by: Other (patient's daughter provided additional history and confirmed the history provided by the patient. ) Critical Care Time Critical Care Time Critical Care Time: Yes Total Critical Care Time: 54 Attestation: I spent 54 minutes of Critical Care Time with this patient. This does not include time spent on separately reported billable procedures. Discharge Plan Discharge Clinical Impression: Hypokalemia, Influenza Patient Disposition: Home, Self-Care Instructions: Potassium Content of Foods List (ED), Hypokalemia (ED), Influenza (DC) Additional Instructions: Your work up today confirmed you still have Influenza. Your blood work showed an initial potassium level of 2.9 which we gave you some while you were here and it is now 3.6 which is normal. We discussed using corticosteroids (prednisone) - and together, through shared decision making, we have decided to move forward with that. You can start this prescription tomorrow as you were given the first dose while in the department. Remember - this can elevate your blood sugars. IF you are prescribed home medications and/or you are taking over the counter medications at home - it is very important you continue to do so as prescribed / directed unless told otherwise by a healthcare provider. Follow up with your primary care provider. Do your best to stay well hydrated and rest. Return to the emergency department immediately if your symptoms worsen or if you develop any numbness, tingling, dizziness, shortness of breath, difficulty breathing, chest pain, blurry vision, loss of vision, nausea, vomiting, abdominal pain, fever, chills, back pain, or any other complaints. Please see the information below about our Patient Portal. If you are not yet enrolled in the [facility] Patient Portal, you will receive an enrollment email invitation following your visit to any [facility] care setting. You may also self-enroll in the Patient Portal by visiting our website: [email or web address] The following information is required to access the Patient Portal: - Your [facility] Medical Record Number - Your personal home email address (must match what is in your electronic medical record, Registration staff can assist with this) - Name - Date of Capabilities of the Patient Portal: - Message some providers - View upcoming appointments - Access your health summary, medical history, and visit history - View current conditions and allergies - View procedure and lab results - View your medications, including guidelines, side effects, and precautions - Complete pre-appointment questionnaires requested by your provider - Ready summary reports of your office visits and procedures To access the Patient Portal Mobile Kiran, follow these directions: - Search IMedExchange in the Kiran Store or Zapa Store - Download the Kiran - Search for [facility] - Enter your login/password Prescriptions: New prednisone 20 mg tablet 40 mg PO DAILY 5 Days Qty: 10 0RF No Action amlodipine 5 mg tablet 5 mg PO QAM Qty: 90 1RF metformin 500 mg tablet 500 mg PO BEDTIME Qty: 180 1RF omeprazole 40 mg capsule,delayed release(DR/EC) 40 mg PO BEDTIME Qty: 90 1RF atorvastatin 40 mg tablet 40 mg PO BEDTIME Qty: 90 1RF fluoxetine 20 mg capsule 40 mg PO QAM Qty: 60 5RF Mounjaro 2.5 mg/0.5 mL pen injector 2.5 mg subcut QWEEK Qty: 2 3RF Rx Instructions: for 4 weeks trazodone 100 mg tablet 100 mg PO BEDTIME Qty: 30 2RF cyanocobalamin (vitamin B-12) [Vitamin B-12] 1,000 mcg Tablet 1,000 mcg PO DAILY Qty: 90 3RF Eliquis 5 mg tablet 5 mg PO BID Qty: 60 5RF cetirizine 10 mg tablet 10 mg PO QAM ondansetron HCl 4 mg tablet 4 mg PO Q8H PRN (Reason: nausea and vomiting) Qty: 14 0RF tolterodine 4 mg capsule,extended release 24hr 4 mg PO BEDTIME buspirone 5 mg tablet 5 mg PO BID cetirizine-pseudoephedrine 5-120 mg tablet extended release 12 hr 1 tab PO BID 7 Days Qty: 14 0RF benzonatate 100 mg capsule 100 mg PO bid-tid PRN (Reason: Cough) 7 Days Qty: 21 0RF Referrals: Flakita Calero MD [Primary Care Provider, Internal Medicine] Print Language: Australian
[2025-09-05 12:26] LABS: Hematocrit 39.6 % (37.0-47.0); Hemoglobin 13.2 g/dl (12.0-16.0); Imm Gran Abs Auto 0.02 X10*3/uL (0.00-0.03); Imm Gran Pct Auto 0.3 % (0.0-0.4); Lymphocytes Absolute Auto 3.1 X10*3/uL (1.2-4.9); MANUAL DIFF FLAG SCAN; Mean Corpuscular HGB Conc 33.3 g/dl (31.0-35.0); Mean Corpuscular Hemoglobin 28.1 pg (27.0-33.0); Mean Corpuscular Volume 84.4 fL (80.0-98.0); NRBC Abs Auto 0.000 X10*3/uL (0.0-0.012); NRBC Pct Auto 0.0 /100WBC (0.0-0.2); Platelet Count 275 X10*3/uL (160-400); Red Blood Count 4.69 X10*6/uL (4.20-5.50); SCAN SMEAR FLAG 1; White Blood Count 6.1 X10*3/uL (4.8-10.8)
[2025-09-05 12:51] LABS: Strep A Nucleic Acid Negative (Negative)
--- NOTE | 2025-09-05 12:58 | ECG_ITS ---
Test Reason : SOB Blood Pressure : */* mmHG Vent. Rate : 81 BPM Atrial Rate : 81 BPM P-R Int : 170 ms QRS Dur : 84 ms QT Int : 420 ms P-R-T Axes : 83 3 52 degrees QTcB Int : 487 ms Normal sinus rhythm Inferior infarct (cited on or before 20-Apr-2025) Anterior infarct , age undetermined Abnormal ECG When compared with ECG of 17-Jun-2025 17:13, Premature ventricular complexes are no longer Present Referred By: Antonia Ashford Electronically Signed By: THUY SHULTZ MD
[2025-09-05 12:59] LABS: Alanine Aminotransferase 21 U/L (0-31); Albumin Level 4.4 g/dL (3.5-5.0); Alkaline Phosphatase 105 U/L (39-117); Anion Gap 15 (12-20); Aspartate Amino Transferase 36 U/L (5-31); Blood Urea Nitrogen 7 mg/dL (9-16); Calcium 9.4 mg/dL (8.4-10.2); Carbon Dioxide 26 mmol/L (22-29); Chloride 103 mmol/L (96-108); Creatinine Clr Calc Pharmacy 66.8; Estimated Glomerular Filt Rate > 60; Magnesium 1.7 mg/dL (1.6-2.6); Potassium 2.9 mmol/L (3.3-5.1); Sodium 141 mmol/L (135-145); Total Protein 7.8 g/dL (6.5-8.0)
[2025-09-05 13:13] LABS: Resp Syncy Virus RNA Qual PCR NEGATIVE (Negative); SARS COV2 PCR INHOUSE NEGATIVE (Negative)
--- OUTSIDE RECORDS SUMMARY | 2025-09-05 14:03 | XMS_ITS | Clinical Summary ---
Author Organization [address] [facility] Address [address] [place] [address] Phone Care Team Providers Care Tile Presser Name Role Phone Flakita Calero MD Primary Care Provider [phone] Encounters Date Type Department Care Team Description 07/11/[address] [facility] [address] [facility] [place] [address] Tylor Thomas MD Urinary tract infection, site not specified from Last 3 Months Surgical History Surgery Date Site/Laterality Comments NECK SURGERY PROCEDURE:NECK SURGERY SHOULDER SURGERY PROCEDURE:SHOULDER SURGERY Medical History Medical History Date Comments Diabetes mellitus ([facility]/HCC V24, CMS/HCC V28) DX:Diabetes mellitus [...] ssp pneumoniae(A) TIM 07/13/2025 11:[address] [facility] Comment: This is an edited [...] MICROBIOLOGY - GENERA L ORDERABLES Final Result [facility] [address] [place] [address], from Last 3 Months Insurance MEDICARE [facility] [address] [place] [address] Care Teams Tile Presser Relationship Specialty Start Date End Date Flakita Calero MD [address] [place] [address] PCP - General 02/15/08
--- OUTSIDE RECORDS SUMMARY | 2025-09-05 14:03 | XMS_ITS | Data Portability ---
Author Organization [facility] PAIN OFF[facility] Address [address] [facility] [address] [place] [address] Care Team Providers Care Handcrew Foreman Name Role Phone LIZ LOPEZ Primary Care Provider SARAH CLAY Referring Provider [phone] Assessment Encounter Date Assessment Date Assessment LastModified [...] results of the imaging studies done at [facility]. [email or web address] Not available 12/29/2020 08:21:00 06/29/2021 06/29/2021 [...] made for the same. 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 [...] By Organization Details Last Modified Time 12/28/2020 [id number] Telehealth visit: The patient was located at home for this telephone electronic visit and gave consent for this visit to be conducted via telehealth. 15 minutes was spent on this call and greater than 50% of the visit was spent on counseling and coordination of care [email or web address] Not available 12/29/2020 08:16:48 06/29/2021 [id number] She was advised against bed rest lasting longer than four days and to continue activities as tolerated. [email or web address] Not available 06/29/2021 13:50:55 08/09/2021 [id number] She was advised against bed rest lasting [...] care. [email or web address] Not available 08/09/2021 11:56:59 01/12/2022 [id number] She was advised against bed rest lasting longer than four days and to continue activities as tolerated. [email or web address] Not available 01/15/2022 10:55:55 01/24/2022 [id number] She was advised against bed rest lasting longer than four days and to continue activities as tolerated. [email or web address] Not available 01/24/2022 16:06:51 Reason for Referral None Reported. Problems Name Problem SNOMED Code Status Onset Date Resolution Date Notes Provider Name and Address Organization Details Recorded Time Degeneration of lumbar intervertebral disc 92216915 Geovanna farfan MD [address] [facility] , [address], [place], [address], [place] [facility] 11:51:41 Lumbar radiculopathy 193493230 Geovanna farfan MD [address] , [address], [facility] [place], [address], [place] [facility] 9 11:53:15 Lumbosacral spondylosis without myelopathy 08746267 Active Jagruti farfan MD [address] [facility] , [address], [place], [address], [place] [facility] 9 11:53:34 Degeneration of cervical intervertebral disc 84509248 Active Jagruti farfan MD [address] [facility] , [address], [place], [address], [place] [facility] 09:02:31 Muscle pain 78113481 Active Jagruti farfan MD [address] [facility] , [address], [place], [address], [place] [facility] 09:02:41 Problem Notes None recorded. Procedures Surgical History Date Name Laterality Status Provider Name and Address Organization Details Recorded Time 01/25/20 22 Intra-articular shoulder steroid injection under ultrasound guidance completed Jagruti Elizabeth MD [address] [facility] , [address], [place], [address], [place] [facility] 01/24/2022 16:06:02 06/29/20 21 Lumbar Epidural steroid injection under fluoroscopic guidance completed Jagruti Elizabeth MD [address] [facility] , [address], [place], [address], [place] [facility] 06/29/2021 13:51:52 07/21/20 20 Lumbar Epidural steroid injection under fluoroscopic guidance completed Jagruti Elizabeth MD [address] [facility] , [address], [place], [address], [place] [facility] 07/21/2020 15:54:12 10/23/19 20 Lumbar Epidural steroid injection under fluoroscopic guidance completed Jagruti Elizabeth MD [address] [facility] , [address], [place], [address], [place] [facility] 10/23/2019 14:39:47 05/30/20 19 Trigger Point Injections under ultrasound guidance completed Jagruti Elizabeth MD [address] , [address], [place], [address], [place] [facility] 05/30/2019 13:31:49 05/15/20 19 Trigger Point Injections under ultrasound guidance completed Jagruti Elizabeth MD [address] [facility] , [address], [place], [address], [place] [facility] 05/15/2019 14:15:41 04/02/20 19 Lumbar Epidural steroid injection under fluoroscopic guidance completed Jagruti Elizabeth MD [address] [facility] , [address], [place], [address], [place] [facility] 04/03/2019 08:35:11 10/09/19 19 Lumbar Epidural steroid injection under fluoroscopic guidance completed Jagruti Elizabeth MD [address] [facility] , [address], [place], [address], [place] [facility] 10/09/2018 [...] Name and Address Organization Details Recorded Time 68453 Iodinated contrast media (substanc e) medicatio n rash Not available Not available 09/14/2018 61621 2004 SNOMED < great er 21 years [...] DateTime 05/16/202 2 157.48 cm 36.4 kg/m2 04851.8 8 g 80 /min 94 % 10 162/81 mm[Hg] Jagruti farfan MD [address] , [address], [place], [address], [place] [facility] 2 11:23:01 Date Recorded Body height Body mass index (BMI) Body weight Heart rate Oxygen saturation Systolic And Diastolic Provider Name and Address Organization Details Last Updated DateTime 1 157.48 cm 36.4 kg/m2 44414.8 8 g 84 /min 96 % 121/75 mm[Hg] Eden Zepedawell [place] - [facility] 1 10:30:30 Date Recorded Body height Provider Name an d Address Organization Details Last Updated DateTime 08/09/2021 157.48 cm Jagruti Elizabeth MD [address] , [address], [place], [address], [place] [facility] 08/09/2021 11:57:31 Social History Question Answer Notes LastModified by SinDelantal Details LastModified Time Tobacco Smoking Status Former Smoker quit x 12 years Not Available [employer] 06/26/2020 03:16:11 Which Illicit Or Recreational Drugs Have You Used? No [id number] Information not available 06/26/2020 Education 12 Information no t available 09/14/2018 Live Alone Or With Others? With Others Information not available 09/14/2018 Marital Status Informatio n not available 09/14/2018 What Was The Date Of Your Most Recent Tobacco Screening? 03/27/2019 [id number] Information not available 06/26/2020 How Many Years Have You Smoked Tobacco? 20 [id number] Information not available 06/26/2020 Sex: Unknown Functional Status Question Answer Note LastModified by SinDelantal Details LastModified Time What is your level of alcohol consumption? Occasional [id number] Information not available 06/26/2020 Are you currently employed? No [id number] Information not available 06/26/2020 What is your [...] Y Arthritis Y Hypertension Y Depression Y GERD/Reflux Y High Cholesterol Y Gynecological HistoryNo gynecological history recorded. Obstetrics History GPAL:G 0 P 0 0 0 0 Past Encounters Encounter ID Performer Location Encounter Start Date Encounter Closed Date Diagnosis/Indication Diagnosis SNOMED-CT Code Diagnosis ICD10 Code Diagnosis IMO Codes Diagnosis Note [id number] Jagruti Elizabeth MD PAIN OFFICE [address] [place] [address] 09/14/2018 09:20:14 09/14/2018 12:05:18 Lumbosacral spondylosis without myelopathy 30989714 M47.817 Lumbar radiculopathy 128 841902 M54.16 Degenerati on of lumbar intervertebral disc 28272019 M51.36 [id number] Jagruti Elizabeth MD PAIN OFFICE [address] [place] [address] 10/09/2018 08:54:37 10/09/2018 10:59:45 Lumbosacral spondylosis without myelopathy 46733014 M47.817 Lumbar radiculopathy 128 045914 M54.16 Degenerati on of lumbar intervertebral disc 52900477 M51.36 [id number] Jagruti Elizabeth MD PAIN OFFICE [address] [place] [address] 11/08/2018 08:45:11 11/08/2018 11:03:12 Lumbosacral spondylosis without myelopathy 71959583 M47.817 Lumbar radiculopathy 128 266674 M54.16 Degenerati on of lumbar intervertebral disc 86005893 M51.36 [id number] Jagruti Elizabeth MD PAIN OFFICE [address] [place] [address] 03/26/2019 13:44:21 03/27/2019 16:06:04 Lumbosacral spondylosis without myelopathy 01656602 M47.817 Lumbar radiculopathy 128 773706 M54.16 Degenerati on of lumbar intervertebral disc 42128972 M51.36 [id number] Jagruti Elizabeth MD PAIN OFFICE [address] [place] [address] 04/02/2019 14:22:38 04/03/2019 11:57:34 Lumbosacral spondylosis without myelopathy 08513232 M47.817 Lumbar radiculopathy 128 928563 M54.16 Degenerati on of lumbar intervertebral disc 55669622 M51.36 [id number] Jagruti Elizabeth MD PAIN OFFICE [address] [place] [address] 05/06/2019 10:21:08 05/15/2019 11:02:55 Degeneration of cervical intervertebral disc 19248242 M50.30 Muscle pain 17898435 M79 .18 Degenerati on of lumbar intervertebral disc 96274733 M51.36 Lumbar radiculopathy 128 M54.16 Lumbosacra l spondylosis without myelopathy 43281393 M47.817 [id number] Jagruti Elizabeth MD PAIN OFFICE [address] [place] [address] 05/15/2019 13:13:23 05/15/2019 14:18:15 Degeneration of cervical intervertebral disc 71555349 M50.30 Muscle pain 11260613 M79 .18 Degenerati on of lumbar intervertebral disc 93280273 M51.36 Lumbar radiculopathy 128 M54.16 Lumbosacra l spondylosis without myelopathy 98350392 M47.817 [id number] Jagruti Elizabeth MD PAIN OFFICE [address] [place] [address] 05/30/2019 12:55:57 05/30/2019 13:33:51 Degeneration of cervical intervertebral disc 85493634 M50.30 Muscle pain 20616044 M79 .18 Degenerati on of lumbar intervertebral disc 78072388 M51.36 Lumbar radiculopathy 128 381220 M54.16 Lumbosacra l spondylosis without myelopathy 76424779 M47.817 [id number] Jagruti Elizabeth MD [facility] [address] [facility] [address] [facility] [place] [address] 06/12/2019 11:37:11 06/24/2019 16:57:19 Degeneration of cervical intervertebral disc 86071754 M50.30 Muscle pain 95317211 M79 .18 Degenerati on of lumbar intervertebral disc 96582329 M51.36 Lumbar radiculopathy 128 695932 M54.16 Lumbosacra l spondylosis without myelopathy 63399289 M47.817 [id number] Jagruti Elizabeth MD PAIN OFFICE [address] [facility] [place] [address] 10/23/2019 13:52:47 10/23/2019 14:42:33 Lumbosacral spondylosis without myelopathy 06852608 M47.817 Lumbar radiculopathy 128 352689 M54.16 Degenerati on of lumbar intervertebral disc 11807122 M51.36 [id number] Jagruti Elizabeth MD PAIN OFFICE [address] [facility] [place] [address] 06/30/2020 08:32:55 06/30/2020 08:45:50 Lumbosacral spondylosis without myelopathy 44484370 M47.817 Lumbar radiculopathy 128 975320 M54.16 Degenerati on of lumbar intervertebral disc 37926106 M51.36 [id number] Jagruti Elizabeth MD PAIN OFFICE [address] [place] [address] 07/21/2020 15:28:07 07/21/2020 15:57:40 Lumbosacral spondylosis without myelopathy 94895366 M47.817 Lumbar radiculopathy 128 317689 M54.16 Degenerati on of lumbar intervertebral disc 57252213 M51.36 [id number] Jagruti Elizabeth MD [facility] [address] [facility] [address] [facility] [place] [address] 08/17/2020 09:19:36 08/17/2020 09:24:43 Lumbosacral spondylosis without myelopathy 60687334 M47.817 Lumbar radiculopathy 128 554672 M54.16 Degenerati on of lumbar intervertebral disc 87658033 M51.36 [id number] Jagruti Elizabeth MD [facility] PAIN OFFICE [address] [facility] [place] [address] 12/28/2020 15:16:05 12/29/2020 08:21:36 Muscle pain 38734673 M79.18 [id number] Jagruti Elizabeth MD [facility] PAIN OFFICE [address] [place] [address] 06/29/2021 10:22:54 06/29/2021 13:59:36 Lumbosacral spondylosis without myelopathy 59945167 M47.817 Lumbar radiculopathy 128 947011 M54.16 Degenerati on of lumbar intervertebral disc 98444696 M51.36 [id number] Jagruti Elizabeth MD [facility] PAIN OFFICE [address] [place] [address] 08/09/2021 11:55:52 08/09/2021 13:16:05 Lumbosacral spondylosis without myelopathy 92650616 M47.817 Lumbar radiculopathy 128 031364 M54.16 Degenerati on of lumbar intervertebral disc 08895930 M51.36 [id number] Jagruti Elizabeth MD [facility] PAIN OFFICE [address] [place] [address] 01/12/2022 13:35:53 01/15/2022 10:59:14 Inflammation of joint of shoulder region 133146885 M13.819 Subacromia l bursitis of left shoulder 3009146494 938939 M75.52 [id number] Jagruti Elizabeth MD [facility] PAIN OFFICE [address] [place] [address] 01/24/2022 11:13:47 01/24/2022 16:09:39 Inflammation of joint of shoulder region 222883926 M13.819 Subacromia l bursitis of left shoulder 5329117052 521179 M75.52 Health Concerns Section Related Observation LastModified by Organization Detai ls LastModified Time None Recorded Concern Status LastModified by Organization Details LastModified Time None Recorded Advance Directives Directive None Recorded Payers Insurance Date Sequence Insurance Name Policy Number Policy Orta Covered Member ID Orta Member ID Guarantor Name 06/27/2022 1 [facility] Ya Cameron [id number] Ya Cameron 11/21/2022 2 [facility] [id number] Ya Cameron [id number] Ya Cameron 06/27/2022 1 [facility] Ya Cameron [id number] Ya Cameron 11/21/2022 1 [place]: [employer] Ya Cameron [id number] Ya Cameron Notes Date Note Type Note [...] bladder or bowel incontinence.She was seen at [facility] and had imaging done. Results are not available today. Jagruti Elizabeth MD [address] , [facility] [address], [place], [address], [facility] - Pain Management 12/30/2020 08:57:28 06/29/2021 text/html She is here for a lumbar epidural steroid injection under fluoroscopic guidance. She had a fall in [facility] and has been having an exacerbation of her pain. She was seen at [facility]. No recent X-rays. Jagruti Elizabeth MD [address] , [address], [place], [address], [place] [facility] 06/30/2021 08:52:14 08/09/2021 text/html This is a follow up after a lumbar epidural steroid injection under fluoroscopic guidance. She reports 70-80% pain benefit which is ongoing. She has stiffness in the morning which improves with stretching. She is walking better . Jagruti Elizabeth MD [address] , [address], [place], [address], [facility] 08/11/2021 09:15:50 01/12/2022 text/html She is here for a follow up. She was last seen on 07/01 for a lumbar epidural steroid injection under fluoroscopic guidance. She reports good pain benefit. She is complaining of left shoulder pain . She has seen Dr. Rodriguez , orthopedic surgeon at [facility] for her pain. He recommend a left shoulder steroid injection under ultrasound guidance. She has been having shoulder pain for the past five years . She is having a difficult time lifting her arm over her head.MRI left shoulder shows mild supraspinatus tendonitis and minimal distal inferior spinatus calcific tendonitis. Mild glenohumeral arthritis. Jagruti Elizabeth MD [address] , [address], [place], [address], [facility] 01/15/2022 11:05:58 01/24/2022 text/html She is here for a left shoulder steroid injection under ultrasound guidance Jagruti Elizabeth MD [address] , [address], [place], [address], [facility] 01/24/2022 16:37:45 OBGyn Episode No OBEpisode recorded.
--- OUTSIDE RECORDS SUMMARY | 2025-09-05 14:03 | XMS_ITS | Patient Health Record ---
[facility] Address [address] [place] [address] Care Team Providers Care Rating Clerk Name Role Phone Abdias QUIROZ, Flakita Bowens Primary Care Provider Un available Elena Mejia Unavailable [phone] Allergies Allergen (clinical drug ingredient) Drug/Non Drug [...] Problem Type II diabetes mellitus without complication (784852284) Type 2 diabetes mellitus without complications (E11.9) Active confirmed Problem Localized, primary osteoarthritis of the ankle and/or foot (965221764) Osteoarthritis of left ankle and foot (M19.072) Active confirmed Plan Of Treatment Pending Test Test Name Order Date X ray : Foot, left 3V 07/07/2021 [id number] NAIL, 1-5 06/06/2016 41301-Ivcubucn Plate 01/17/2017 59700-[id number] Plate 05/23/2016 [id number] 06/13/2017 38321- Debride <25 sq cm 07/21/2015 57158- Debride <25 sq cm 07/11/2017 03522- Debride <25 sq cm 07/25/2017 [id number] SKIN/TISSUE 06/27/2017 54107 I&D ABSCESS- SIMPLE,SINGLE 015 27968 I&D ABSCESS- SIMPLE,SINGLE 015 Insurance Providers Payer Name Payer Address Payer Phone Subscriber Number Group Number Insured Name Patient Relationship to Insured Coverage Start Date Coverage End Date Medicare [employer] [address] [place] [address] [id number] Ya Cameron Self - patient is the insured [facility] [address] [place] [address] [id number] Ya Cameron Self - patient is the [...]
--- OUTSIDE RECORDS SUMMARY | 2025-09-05 14:03 | XMS_ITS | Clinical Summary ---
Author Organization [facility] Prior to 02/08/[address] [place] [address] Care Team Providers Care Activities Officer Name Role Phone Flakita Calero MD Primary Care Provider [phone] Allergies Active Allergy Reactions Criticality Noted Date [...] age to complete this topic Care Teams Activities Officer Relationship Specialty Start Date End Date Flakita Calero MD [address] [facility] [place] [id number] PCP - General Internal Medicine 10/27/17"
--- OUTSIDE RECORDS SUMMARY | 2025-09-05 14:03 | XMS_ITS | Encounter Summary ---
Author Organization [facility] Address [address] [place] [address] Care Team Providers Care Tyre Builder Name Role Phone Flakita Calero MD Primary Care Provider Encounter Details Date Type Department Care Team (Late st Contact Info) Description 07/11/2025 Lab Requisition [facility] - Main Lab [address] [place] [address] Tylor Thomas MD [address] [address] Urinary tract infection, site not [...] ssp pneumoniae(A) TIM 07/13/2025 11:23 AM EST [facility] Comment: This is an [...] MICROBIOLOGY - GENERA L ORDERABLES Final Result [facility] [address] [place] [address], documented in this encounter Visit Diagnoses Diagnosis Urinary tract infection, site not specified documented in this encounter Care Teams Tyre Builder Relationship Specialty Start Date End Date Flakita Calero MD [address] [place] [address] PCP - General 02/15/08 documented as of this encounter
--- OUTSIDE RECORDS SUMMARY | 2025-09-05 14:03 | XMS_ITS | Data Portability ---
Author Organization [place] [facility] [place] Address [address] [place] [address] Care Team Providers Care Glaciologist Name Role Phone LIZ LOPEZ Primary Care [...] Left Knee Pain 2022 023 [facility], [address], [place], [address], 3 15:18:58 XR, knee, 1 or 2 view - Right Knee Pain 2022 023 [facility], [address], [place], [address], 3 15:18:58 XR, knee, weightbeari ng - Bilateral Knee Pain 2022 023 [facility], [address], [place], [address], 3 15:18:58 Medication Orders Kenalog 40 mg/mL suspension for injection 2022 023 [facility], [address] [place] [address], [id number], 08:52:19 lidocaine (PF) 10 mg/mL (1 %) injection solution 2022 023 [place] [address] [facility], [address] [place] [address], [address], 08:52:23 Bactrim DS 800 mg-160 mg tablet 2022 023 [place] [address] [facility], [address] [place] [address], [address], 08:52:34 lidocaine (PF) 10 mg/mL (1 %) injection solution 2022 023 [place] [address] [facility], [address] [place] [address], [address], 08:52:23 Patient TargetsNo targets recorded. Patient Instructions Encounter Date Encounter Id Patient Instructions Last Modified By Organization Details Last Modified Time 04/27/2023 [id number] X-rays of both knees reveal overall well-maintained joint space with mild degenerative change without acute bony abnormality. Normal bone mineralization no obvious soft tissue findings are observed. Not available 04/28/2023 08:16:44 05/11/2023 [id number] You have been provided with a cortisone [...] Recorded Time Arthritis of right knee joint 33271988334 29743 Active 2017 Arthritis of right knee Not Available [facility] 5 23:03:55 Subacromi al bursitis of left shoulder 29333606641 58847 Active 2019 Subacromi al bursitis of left shoulder joint Not Available [facility] 5 23:03:56 Impingeme nt syndrome of left shoulder region 63598293700 9104 Active 2019 Impingeme nt syndrome of left shoulder region Not Available [facility] 5 23:03:56 Carpal tunnel syndrome of left wrist 60347030065 02 Active 2019 Left carpal tunnel syndrome Not Available [facility] 5 23:03:54 Carpal tunnel syndrome of right wrist 38726709953 9108 Active 2019 Right carpal tunnel syndrome Not Available [facility] 5 23:03:55 Cervical radiculop athy 42421889 Active 2019 Possible cervical radiculop athy Not Available [facility] 5 23:03:56 Bilateral carpal tunnel syndrome 43780510219 583339 Active 2019 Possible bilateral carpal tunnel syndrome Not Available [facility] 5 23:03:55 Prepatell ar bursitis of left knee 65478480845 9103 Active 2022 VIOLETTE CORRALES PA-C [address], [place], [address] , [place] [facility] 3 14:06:33 Osteoarth ritis of left knee joint 84800260164 9109 Active 2022 VIOLETTE CORRALES PA-C [address], [place], [address] , [place] [facility] 3 10:10:06 Synovial cyst of right knee 05943552076 9104 Active 2022 VIOLETTE CORRALES PA-C [address], [place], [address] , [place] [facility] 3 09:39:52 Problem Notes None recorded. Procedures Surgical History Date Name Laterality Status Provider Name and Address Organization Details Recorded Time 05/11/2023 Knee Joint/Burs a Asp & Inj completed VIOLETTE CORRALES PA-C [address], [place], [address], [place] [facility] 05/11/2023 10:07:19 04/27/2023 Knee Joint/Burs a Asp & Inj completed VIOLETTE CORRALES PA-C [address], [place], [address], [place] [facility] 04/28/2023 08:13:06 Knee arthroscop y/surgery [facility] 04/27/2023 13:25:28 Imaging Results None recorded. Procedure Notes None recorded. Medical Equipment None Reported. Allergies Allergen ID Allergen Name Allergen Category Reaction Reaction Severity Criticality Documentation Date Start Date Code Code System Note Provider Name and Address Organization Details Recorded Time 7279 Iodinated contrast media (substanc e) medicatio n Not available Not available Not available 04/27/2023 57204 2003 SNOMED [place], [place] - [facility] 3 13:24:08 Medications Name Sig Start [...] Updated DateTime 04/27/2023 157.48 cm 36.4 kg/m2 82333.88 g [facility], 04/27/2023 13:24:24 Date Recorded Body height Provider [...] ICD10 Code Diagnosis IMO Codes Diagnosis Note [id number] [facility] [address] [address] 04/27/2023 12:51:19 04/27/2023 14:11:04 Pain of left knee joint 7587237530 98199 M25.562 Pain of ri ght knee joint 7153449238 79313 M25.561 Pain of bi lateral knee joints 7417046385 05077 M25.561 Prepatella r bursitis of left knee 2541827497 69117 M70.42 [id number] CURT CALHOUNfie ld 299 [facility] [address] [facility] [place] [address] 05/11/2023 09:12:00 05/11/2023 10:08:57 Osteoarthritis of left knee joint 6810651355 54682 M17.12 [id number] CURT CALHOUN [facility] 299 [facility] [address] [facility] [place] [address] 08/10/2023 08:41:03 08/10/2023 09:56:06 Synovial cyst of right knee 4861678527 78788 M71.21 Health Concerns Section Related Observation LastModified by Organization Detai ls LastModified Time None Recorded Concern Status LastModified by Organization Details LastModified Time None Recorded Advance Directives Directive None Recorded Payers Insurance Date Sequence Insurance Name Policy Number Policy Orta Covered Member ID Orta Member ID Guarantor Name 02/16/2024 1 MEDICARE B-MS: [employer] [facility] [id number] [facility] 04/05/2024 2 [facility] [id number] 2 [facility] [id number] [facility] Notes Date Note Type Note Provider [...] evaluation and treatment. VIOLETTE CORRALES PA-C [address], [address], [place] [facility] 06/07/2023 13:07:40 05/11/2023 text/html Assessment & [...] going on vacation. VIOLETTE CORRALES PA-C [address], [address], [place] [facility] 05/11/2023 10:11:00 08/10/2023 text/html 63-year-old female [...] of breath. VIOLETTE CORRALES PA-C 299 [facility] [address], [place], [address], [place] [facility] 08/10/2023 09:40:52 OBGyn Episode No OBEpisode recorded.
[2025-09-05 14:49] VITALS: BP 163/82; PULSE 99; RESP 18; TEMP 37.1; O2SAT 97
[2025-09-05] MEDS: Potassium Chloride ER 20 MEQ TAB.ER.PRT 40 MEQ PO (14:50)
[2025-09-05] MEDS: Potassium Chloride Packet 20 MEQ PACKET 40 MEQ PO (14:50)
[2025-09-05 16:45] VITALS: BP 140/79; PULSE 84; RESP 18; O2SAT 95
[2025-09-05 17:07] LABS: Alanine Aminotransferase 19 U/L (0-31); Albumin Level 4.1 g/dL (3.5-5.0); Alkaline Phosphatase 96 U/L (39-117); Anion Gap 14 (12-20); Aspartate Amino Transferase 38 U/L (5-31); Blood Urea Nitrogen 8 mg/dL (9-16); Calcium 9.0 mg/dL (8.4-10.2); Carbon Dioxide 26 mmol/L (22-29); Chloride 104 mmol/L (96-108); Creatinine Clr Calc Pharmacy 68.3; Estimated Glomerular Filt Rate > 60; Potassium 3.6 mmol/L (3.3-5.1); Sodium 140 mmol/L (135-145); Total Protein 7.3 g/dL (6.5-8.0)
[2025-09-05 17:23] VITALS: BP 108/48; PULSE 79; RESP 17; TEMP 37.1; O2SAT 95
[2025-09-05 17:27] VITALS: BP 108/48; PULSE 79; RESP 17; TEMP 37.1; O2SAT 95
== END 2025-09-05 17:27 | disposition home or self-care (01) ==
PROVIDERS: Physician Assistant; Physician Assistant Medical; Emergency Provider Emergency Medicine; PCP Internal Medicine
DX: E87.6 Hypokalemia (principal); J10.1 Influenza due to other identified influenza virus with other respiratory manifestations; J44.9 Chronic obstructive pulmonary disease, unspecified; I10 Essential (primary) hypertension; E11.9 Type 2 diabetes mellitus without complications; Z03.818 Encounter for observation for suspected exposure to other biological agents ruled out; Z86.718 Personal history of other venous thrombosis and embolism; Z79.01 Long term (current) use of anticoagulants; Z86.711 Personal history of pulmonary embolism; Z79.899 Other long term (current) drug therapy
CPT/HCPCS: 36415; 71046; 80048; 80053; 80076; 83735; 85025; 87637; 87651; 93005; 99283; 99285; J2919

== ENCOUNTER → 2025-09-05 11:50 | Outpatient (BNV) | payer MEDICARE, OTHER, SELFPAY | PROVIDERS: PCP Internal Medicine; Visit Provider Radiology Diagnostic Radiology | DX: R05.9 Cough, unspecified (principal) | CPT/HCPCS: 71046 ==

== ENCOUNTER → 2025-09-05 12:58 | Outpatient (BNV) | payer MEDICARE, OTHER, SELFPAY | PROVIDERS: PCP Internal Medicine; Visit Provider Internal Medicine Cardiovascular Disease | DX: I25.2 Old myocardial infarction (principal) | CPT/HCPCS: 93010 ==